=== PATIENT | female | born 1955 | race Caucasian/White ===

== ENCOUNTER 2017-10-01 10:59 | Emergency (ER) | payer BC ==
[2017-10-01 11:33] VITALS: BP 193/98; PULSE 99; RESP 20; TEMP 97.3
--- NOTE | 2017-10-01 11:45 | ED ---
General Adult HPI - General Chief complaint: Skin/Abscess/Foreign Body Stated complaint: BOIL ON NECK Time Seen by Provider: 10/01/17 11:34 Source: patient, RN notes reviewed Mode of arrival: ambulatory Limitations: no limitations - History of Present Illness Initial comments: 62-year-old female presenting to the emergency room today with chief complaint of an abscess to the back of her neck. She states that started 2 days ago. She states that her son did last area was able to some drainage out of it. She states that still was not improving seems to be getting larger. She states there is some tenderness to the area. She states it is still draining. She denies any other complaints. Patient denies any recent fever, chills, shortness of breath, chest pain, back pain, abdominal pain, nausea or vomiting, numbness or tingling, dysuria or hematuria, constipation or diarrhea, headaches or visual changes, or any other complaints. - Related Data Home Medications Medication Instructions Recorded Confirmed Gabapentin [Neurontin] 800 mg PO QID 04/14/15 04/14/15 Insulin Detemir [Levemir] 40 units SQ BID 04/14/15 04/14/15 Insulin Glulisine [Apidra] 4 units SQ TID 04/14/15 04/14/15 Previous Rx's Medication Instructions Recorded Sulfamethox-Tmp 800-160Mg [Bactrim 2 each PO Q12HR #56 tab 04/14/15 DS 800-160 mg] Sulfamethox-Tmp 800-160Mg [Bactrim 1 tab PO Q12HR #28 tab 10/01/17 DS 800-160 mg] Allergies Allergy/AdvReac Type Severity Reaction Status Date / Time Kygdasx-Pgi-Bgr Reductase Allergy Unknown Verified 10/01/17 11:30 Inhibitor Review of Systems ROS Statement: Those systems with pertinent positive or pertinent negative responses have been documented in the HPI. ROS Other: All systems not noted in ROS Statement are negative. Past Medical History Past Medical History: Diabetes Mellitus, Hyperlipidemia, Hypertension History of Any Multi-Drug Resistant Organisms: MRSA Date of last positivie culture/infection: 04/14/2015 MDRO Source:: head Past Surgical History: Tubal Ligation Past Psychological History: No Psychological Hx Reported Smoking Status: Former smoker Past Alcohol Use History: None Reported Past Drug Use History: None Reported General Exam - General Exam Comments Initial Comments: General: The patient is awake and alert, in no distress, and does not appear acutely ill. Eye: Pupils are equal, round and reactive to light, extra-ocular movements are intact. No nystagmus. There is normal conjunctiva bilaterally. No signs of icterus. Ears, nose, mouth and throat: There are moist mucous membranes and no oral lesions. Neck: The neck is supple, there is no tenderness or JVD. Cardiovascular: There is a regular rate and rhythm. No murmur, rub or gallop is appreciated. Respiratory: Lungs are clear to auscultation, respirations are non-labored, breath sounds are equal. No wheezes, stridor, rales, or rhonchi. Musculoskeletal: Normal ROM, no tenderness. Strength 5/5. Sensation intact. Pulses equal bilaterally 2+. Neurological: A&O x 3. CN II-XII intact, There are no obvious motor or sensory deficits. Coordination appears grossly intact. Speech is normal. Skin: There is a red raised area to the upper back area is red raised firm on palpation. Skin is indurated locally. No fluctuance abscess head. Scabbed area centrally. Psychiatric: Cooperative, appropriate mood & affect, normal judgment. Limitations: no limitations Course Vital Signs 10/01/17 11:30 Temperature 97.3 F L Pulse Rate 99 Respiratory 20 Rate Blood Pressure 193/98 O2 Sat by Pulse 98 Oximetry Medical Decision Making - Medical Decision Making Was discussed with patient that at this time there is no abscess fluctuant head. The skin and abscesses indurated and firm. Patient will be started on antibiotics. She does admit that she has been getting some drainage from the area. Advised to do warm compresses at least 4 times daily. Advised follow-up the family doctor over the next 2 days to have area rechecked or return here to the emergency room if it has increased or worsen. Patient's blood pressure elevated at triage she states that she forgot to take her medication. She says she's just a few blocks from the hospital. It was offered to the patient and we can give her a dose of her hematocrit here she has declined stating that she will take it when she gets home. She is advised to also follow-up the family doctor for recheck of the blood pressure Disposition Clinical Impression: Abscess Disposition: HOME SELF-CARE Condition: Good Instructions: Abscess (ED) Additional Instructions: Please use medication as discussed. Please follow-up with family doctor in the next 2 days of symptoms have not improved. Please return to emergency room if the symptoms increase or worsen or for any other concerns. Prescriptions: Sulfamethox-Tmp 800-160Mg [Bactrim DS 800-160 mg] 1 tab PO Q12HR #28 tab Is patient prescribed a controlled substance at d/c from ED?: No Referrals: Noah Finley DO [Primary Care Provider] - 1-2 days Time of Disposition: 11:44
== END 2017-10-01 12:03 | disposition home or self-care (01) ==
LOC: EC 10:59
DX: L02.11 Cutaneous abscess of neck (principal); I10 Essential (primary) hypertension; E11.9 Type 2 diabetes mellitus without complications; Z87.891 Personal history of nicotine dependence; Z79.4 Long term (current) use of insulin; Z79.899 Other long term (current) drug therapy; Z88.8 Allergy status to other drugs, medicaments and biological substances; Z86.14 Personal history of Methicillin resistant Staphylococcus aureus infection
CPT/HCPCS: 99282

== ENCOUNTER 2017-11-03 17:53 | Emergency (ER) | payer BC ==
[2017-11-03] MEDS ORDERED: SODIUM CHLORIDE 0.9% 1,000 ML IV STA (18:17)
[2017-11-03] MEDS ORDERED: IPRATROPIUM-ALBUTEROL 3 ML NEB INHALATION STA (18:17)
--- NOTE | 2017-11-03 18:20 | ED ---
Chest Pain HPI - General Chief Complaint: Chest Pain Stated Complaint: Rib pain, ear pain Time Seen by Provider: 11/03/17 18:05 Source: patient, RN notes reviewed Mode of arrival: ambulatory Limitations: no limitations - History of Present Illness Initial Comments: This is a 62-year-old female was a former smoker who quit 13 years ago and a history of bronchitis who states she had an onset yesterday of left anterior rib pain sharp in nature 9/10 severity with associated chills he states she's been sleeping a lot slipped yesterday last night also day today. She has exertional dyspnea. No sweats no fever reported no she states her normal temperature is about 95 and it does seem to be up-to-date. No dysuria hematuria she has complains some left ear pain and pain into her neck when she agrees left chest pain seems to be worse when she takes a deep breath also. MD Complaint: chest pain, other - Related Data Home Medications Medication Instructions Recorded Confirmed Gabapentin [Neurontin] 800 mg PO QID 04/14/15 04/14/15 Insulin Detemir [Levemir] 40 units SQ BID 04/14/15 04/14/15 Insulin Glulisine [Apidra] 4 units SQ TID 04/14/15 04/14/15 Previous Rx's Medication Instructions Recorded Sulfamethox-Tmp 800-160Mg [Bactrim 2 each PO Q12HR #56 tab 04/14/15 DS 800-160 mg] Sulfamethox-Tmp 800-160Mg [Bactrim 1 tab PO Q12HR #28 tab 10/01/17 DS 800-160 mg] Albuterol Inhaler [Ventolin Hfa 2 puff INHALATION Q6HR PRN #1 11/03/17 Inhaler] inhaler Amoxicillin/Potassium Clav 1 tab PO Q12HR #20 tab 11/03/17 [Augmentin 875-125 Tablet] Ibuprofen 800 mg PO Q6HR PRN #20 tablet 11/03/17 Allergies Allergy/AdvReac Type Severity Reaction Status Date / Time Tifisdq-Txm-Tks Reductase Allergy Unknown Verified 11/03/17 18:00 Inhibitor Review of Systems ROS Statement: Those systems with pertinent positive or pertinent negative responses have been documented in the HPI. ROS Other: All systems not noted in ROS Statement are negative. EKG Findings - EKG Results: EKG: interpreted by ERMD, sinus rhythm (Sinus tachycardia rate 103. Interval 158 QRS duration 70 QT since QTC 334/437 low-voltage nonspecific T-wave configuration.) Past Medical History Past Medical History: Diabetes Mellitus, Hyperlipidemia, Hypertension History of Any Multi-Drug Resistant Organisms: MRSA Date of last positivie culture/infection: 04/14/2015 MDRO Source:: head Past Surgical History: Tubal Ligation Past Psychological History: No Psychological Hx Reported Smoking Status: Former smoker Past Alcohol Use History: None Reported Past Drug Use History: None Reported General Exam - General Exam Comments Initial Comments: This is a well-developed well-nourished awake alert oriented 3 female Limitations: no limitations General appearance: alert, in no apparent distress Head exam: Present: atraumatic, normocephalic, normal inspection Eye exam: Present: normal appearance, PERRL, EOMI. Absent: scleral icterus, conjunctival injection, periorbital swelling ENT exam: Present: mucous membranes dry Neck exam: Present: normal inspection. Absent: tenderness, meningismus, lymphadenopathy Respiratory exam: Present: decreased breath sounds. Absent: respiratory distress, wheezes, rales, rhonchi, stridor, chest wall tenderness Cardiovascular Exam: Present: normal rhythm, tachycardia, normal heart sounds. Absent: systolic murmur, diastolic murmur, rubs, gallop, clicks GI/Abdominal exam: Present: soft, normal bowel sounds. Absent: distended, tenderness, guarding, rebound, rigid Extremities exam: Present: normal inspection, full ROM, normal capillary refill. Absent: tenderness, pedal edema, joint swelling, calf tenderness Back exam: Present: normal inspection Neurological exam: Present: alert, oriented X3, CN II-XII intact Psychiatric exam: Present: normal affect, normal mood Skin exam: Present: warm, dry, intact, normal color. Absent: rash Course Vital Signs 11/03/17 11/03/17 11/03/17 17:56 18:26 18:32 Temperature 97.2 F L Pulse Rate 112 H 103 H 100 Respiratory 18 Rate Blood Pressure 166/85 O2 Sat by Pulse 98 Oximetry 11/03/17 11/03/17 11/03/17 18:51 19:47 20:53 Temperature Pulse Rate 107 H 94 91 Respiratory 20 18 18 Rate Blood Pressure 166/80 131/80 141/70 O2 Sat by Pulse 98 98 98 Oximetry - Reevaluation(s) Reevaluation #1: 11/03/17 19:18 Patient still has sharp left-sided chest pain her breathing has not really improved after the DuoNeb treatment she has have evidence of elevated d-dimer she will get a CAT scan of her chest. Chest Pain MDM - MDM I did review the imaging studies and report no acute findings. Patient did get marked improvement after Toradol and she states she did get improvement after the IV magnesium and updraft. She will be discharged the presentation is consistent with pleurisy. 3 place on appropriate medications also an inhaler. Disposition Clinical Impression: Atypical chest pain, Pleurisy, Bronchospasm, acute, Hypomagnesemia Disposition: HOME SELF-CARE Condition: Good Instructions: Chest Pain (ED), Pleurisy (ED), Bronchospasm (ED) Prescriptions: Albuterol Inhaler [Ventolin Hfa Inhaler] 2 puff INHALATION Q6HR PRN #1 inhaler PRN Reason: Dyspnea Amoxicillin/Potassium Clav [Augmentin 875-125 Tablet] 1 tab PO Q12HR #20 tab Ibuprofen 800 mg PO Q6HR PRN #20 tablet PRN Reason: Pain Is patient prescribed a controlled substance at d/c from ED?: No Referrals: Noah Finley DO [Primary Care Provider] - 1-2 days
[2017-11-03 18:28] LABS: Basophils % (A) 0 %; Eosinophils # (A) 0.2 k/uL (0-0.7); Eosinophils % (A) 2 %; HCT 39.7 % (34.0-46.0); HGB 12.9 gm/dL (11.4-16.0); Lymphocytes # (A) 1.8 k/uL (1.0-4.8); Lymphocytes % (A) 15 %; MCH 27.2 pg (25.0-35.0); MCHC 32.5 g/dL (31.0-37.0); MCV 83.9 fL (80.0-100.0); Mean Platelet Volume 7.8; Monocytes # (A) 0.5 k/uL (0-1.0); Monocytes % (A) 4 %; Neutrophils # (A) 9.2 k/uL (1.3-7.7); Neutrophils % (A) 78 %; Platelet Count 293 k/uL (150-450); RBC 4.74 m/uL (3.80-5.40); RDW 14.7 % (11.5-15.5); WBC 11.8 k/uL (3.8-10.6)
[2017-11-03 18:38] LABS: Creatine Kinase 65 U/L (30-135)
[2017-11-03 18:39] LABS: ALT 27 U/L (9-52); AST 29 U/L (14-36); Albumin 4.1 g/dL (3.5-5.0); Alkaline Phosphatase 93 U/L (38-126); Amylase 62 U/L (30-110); Anion Gap 13 mmol/L; Blood Urea Nitrogen 21 mg/dL (7-17); Calcium 9.7 mg/dL (8.4-10.2); Carbon Dioxide 24 mmol/L (22-30); Chloride 100 mmol/L (98-107); Glucose 256 mg/dL (74-99); Lipase 239 U/L (23-300); Magnesium 1.4 mg/dL (1.6-2.3); Potassium 5.1 mmol/L (3.5-5.1); Sodium 137 mmol/L (137-145); Total Bilirubin 0.9 mg/dL (0.2-1.3); Total Protein 7.9 g/dL (6.3-8.2)
[2017-11-03 18:45] LABS: Partial Thromboplastin Time 22.4 sec (22.0-30.0); Prothrombin Time 9.7 sec (9.0-12.0)
[2017-11-03 18:46] LABS: D-Dimer 0.78 mg/L FEU (<0.60)
[2017-11-03 18:50] LABS: Troponin I <0.012 ng/mL (0.000-0.034)
[2017-11-03] MEDS ORDERED: KETOROLAC 30 MG/ML 1 ML VIAL IVP STA (19:17)
[2017-11-03] MEDS ORDERED: MAGNESIUM SULFATE-D5W PMX 1 GM in DEXTROSE/WATER 1 100ML.BAG IVPB ONE (19:17)
--- NOTE | 2017-11-03 19:32 | XR ---
EXAMINATION: XR chest 2V DATE AND TIME: 11/03/2017 6:49 PM ORDERING PROVIDER: Jeffrey Kenney MD CLINICAL INDICATION: Chest Pain TECHNIQUE: PA and lateral COMPARISON: None. DESCRIPTION: The overlying soft tissues are prominent. There is satisfactory, the lungs appear to be clear. The pleural spaces are negative. The cardiac silhouette is moderately enlarged. The mediastinal and pleural silhouettes are unremarkable. The skeletal structures are intact without focal findings. IMPRESSION: NO ACUTE RADIOGRAPHIC PROCESS.
[2017-11-03 19:47] VITALS: RESP 18
--- NOTE | 2017-11-03 20:10 | CT ---
EXAMINATION TYPE: CT angio chest with contrast and 3-D reconstructions DATE OF EXAM: 11/03/2017 7:51 PM COMPARISON: NONE HISTORY: Patient complains of left side rib pain. CT DLP: 423.4 mGycm Automated exposure control for dose reduction was used. CONTRAST: CTA scan of the thorax is performed with IV Contrast, patient injected with 100 mL of Isovue 370, pul monary embolism protocol. . FINDINGS: The airways are unremarkable. The lungs are grossly clear, there is no concerning parenchymal mass or nodule identified. There is no pleural effusion or pneumothorax seen. The tracheobronchial tree is patent. There is satisfactory enhancement of the pulmonary artery and its branches, there is no CT evidence f or pulmonary embolism. There are no greater than 1 cm hilar or mediastinal lymph nodes. Left and rig ht coronary calcifications are noted. There is mild cardiomegaly. No pericardial effusion. Skeletal structures: No focal findings. IMPRESSION: 1. NO ACUTE PROCESS. 2. SPECIFICALLY, NEGATIVE FOR PULMONARY EMBOLISM. 3. CORONARY CALCIFICATIONS NOTED.
[2017-11-03] MEDS ORDERED: AMOXIC-POT CLAV 875MG STARTER 2 EACH TABLET PO STA (21:26)
[2017-11-03 21:38] VITALS: BP 127/74; PULSE 78; TEMP 98.2
== END 2017-11-03 21:38 | disposition home or self-care (01) ==
LOC: EC 17:53
DX: R09.1 Pleurisy (principal); J98.01 Acute bronchospasm; E83.42 Hypomagnesemia; E11.9 Type 2 diabetes mellitus without complications; Z86.14 Personal history of Methicillin resistant Staphylococcus aureus infection; Z87.891 Personal history of nicotine dependence; Z79.4 Long term (current) use of insulin; Z79.899 Other long term (current) drug therapy; Z88.8 Allergy status to other drugs, medicaments and biological substances
CPT/HCPCS: 36415; 94640; 93005; 85379; 83880; 80053; 82150; 82550; 82553; 83690; 83735; 84484; 85025; 85610; 85730; 71046; 71275; 99285; 96365; 96366; 96375; 96361 ×2; J1885; J3475; Q9967

== ENCOUNTER 2018-03-30 20:39 | Inpatient (IN) | payer BC ==
[2018-03-30] MEDS ORDERED: SODIUM CHLORIDE 0.9% 1,000 ML IV STA (21:21)
[2018-03-30] MEDS ORDERED: ACETAMINOPHEN TAB 325 MG TAB PO STA (21:21)
--- NOTE | 2018-03-30 21:25 | ED ---
SOB HPI - General Chief Complaint: Shortness of Breath Stated Complaint: MISSAEL Time Seen by Provider: 03/30/18 21:07 Source: patient, family Mode of arrival: wheelchair Limitations: no limitations - History of Present Illness Initial Comments: Patient is a 62-year-old female presenting for shortness of breath and cough. She states that for the last couple days, she has been having these symptoms and she is also been having nausea vomiting diarrhea and a low-grade fever at home of 99. She also admits to chills because she gets on her hot blanket in his stool cold. She denies any abdominal pain, dysuria, history of lung disease and does not use any nausea home nor does she have a recent history of smoking cigarettes although she did smoke about 13 years ago. She denies any chest pain. - Related Data Home Medications Medication Instructions Recorded Confirmed Gabapentin [Neurontin] 800 mg PO QID 04/14/15 03/30/18 Insulin Detemir [Levemir] 40 units SQ BID 04/14/15 03/30/18 Insulin Glulisine [Apidra] 4 units SQ TID 04/14/15 03/30/18 Previous Rx's Medication Instructions Recorded Albuterol Inhaler [Ventolin Hfa 2 puff INHALATION Q6HR PRN #1 11/03/17 Inhaler] inhaler Ibuprofen 800 mg PO Q6HR PRN #20 tablet 11/03/17 Cyclobenzaprine [Flexeril] 10 mg PO TID #15 tab 02/11/18 Ibuprofen 800 mg PO TID #20 tablet 02/11/18 Allergies Allergy/AdvReac Type Severity Reaction Status Date / Time Ehqehee-Dvx-Szp Reductase Allergy Unknown Verified 03/30/18 20:54 Inhibitor Review of Systems ROS Statement: Those systems with pertinent positive or pertinent negative responses have been documented in the HPI. Constitutional: Positive for chills, fatigue and fever. HENT: Negative for congestion. Respiratory: Negative for chest tightness, positive for shortness of breath and wheezing. Positive for cough Cardiovascular: Negative for chest pain and palpitations. Gastrointestinal: Negative for abdominal pain. Negative for abdominal distention , positive for diarrhea, nausea and vomiting. Genitourinary: Negative for dysuria. Musculoskeletal: Negative for back pain, neck pain and neck stiffness. Skin: Negative for color change. Neurological: Negative for dizziness, speech difficulty, weakness and light- headedness. Psychiatric/Behavioral: Negative for agitation and confusion. Negative for anxiety ROS Other: All systems not noted in ROS Statement are negative. Past Medical History Past Medical History: Diabetes Mellitus, Hyperlipidemia, Hypertension History of Any Multi-Drug Resistant Organisms: MRSA Date of last positivie culture/infection: 04/14/2015 MDRO Source:: head Past Surgical History: Tubal Ligation Past Psychological History: No Psychological Hx Reported Smoking Status: Former smoker Past Alcohol Use History: None Reported Past Drug Use History: None Reported General Exam - General Exam Comments Initial Comments: Constitutional: Pt is oriented to person, place, and time. Pt appears well- developed and well-nourished. Patient is ill-appearing but hemodynamically stable HENT: Head: Normocephalic and atraumatic. Eyes: EOM are normal. Neck: Normal range of motion. Neck supple. Cardiovascular: Tachycardia present, regular rhythm, S1 normal, S2 normal and normal heart sounds. Exam reveals no gallop and no friction rub. No murmur heard. Pulmonary/Chest: Tachypnea present and breath sounds normal. no bradypnea. No respiratory distress. No wheezes or rales noted. Abdominal: Soft. Bowel sounds are normal. Pt exhibits no shifting dullness, no distension, no pulsatile liver, no fluid wave, no abdominal bruit and no ascites. There is no tenderness. There is no rigidity, no rebound, no guarding, no tenderness at McBurney's point and negative Roa's sign. Musculoskeletal: Normal range of motion. Neurological: Pt is alert and oriented to person, place, and time. No cranial nerve deficit. Skin: Skin is warm and dry. No rash noted. Pt is not diaphoretic. No erythema. No pallor. Psychiatric: Pt has a normal mood and affect. Pt behavior is normal. Thought content normal. Limitations: no limitations Course Vital Signs 03/30/18 03/30/18 03/30/18 20:51 21:00 21:10 Temperature 99.8 F H Pulse Rate 127 H Respiratory 20 Rate Blood Pressure 159/81 156/89 O2 Sat by Pulse 97 95 98 Oximetry 03/30/18 03/30/18 03/30/18 21:20 21:30 21:40 Temperature Pulse Rate 124 H 120 H Respiratory Rate Blood Pressure 156/89 156/89 156/89 O2 Sat by Pulse 99 99 99 Oximetry 03/30/18 03/30/18 03/30/18 21:50 21:52 22:00 Temperature Pulse Rate 121 H 120 H Respiratory 22 Rate Blood Pressure 174/97 174/97 O2 Sat by Pulse 99 99 Oximetry 03/30/18 03/30/18 03/30/18 22:04 22:10 22:20 Temperature Pulse Rate 118 H 118 H Respiratory Rate Blood Pressure 152/80 152/80 O2 Sat by Pulse 100 Oximetry 03/30/18 03/30/18 03/30/18 22:30 22:40 22:50 Temperature Pulse Rate 125 H 128 H 124 H Respiratory Rate Blood Pressure 152/80 148/81 148/81 O2 Sat by Pulse 97 97 96 Oximetry Medical Decision Making - Lab Data Result diagrams: 03/30/18 21:50 03/30/18 21:50 Lab Results 03/30/18 03/30/18 03/30/18 Range/Units 21:50 21:50 21:50 WBC 13.3 H (3.8-10.6) k/uL RBC 4.35 (3.80-5.40) m/uL Hgb 11.5 (11.4-16.0) gm/dL Hct 36.1 (34.0-46.0) % MCV 82.8 (80.0-100.0) fL MCH 26.5 (25.0-35.0) pg MCHC 32.0 (31.0-37.0) g/dL RDW 14.7 (11.5-15.5) % Plt Count 533 H D (150-450) k/uL Neutrophils % 85 % Lymphocytes % 9 % Monocytes % 4 % Eosinophils % 1 % Basophils % 0 % Neutrophils # 11.3 H (1.3-7.7) k/uL Lymphocytes # 1.2 (1.0-4.8) k/uL Monocytes # 0.5 (0-1.0) k/uL Eosinophils # 0.1 (0-0.7) k/uL Basophils # 0.0 (0-0.2) k/uL Hypochromasia Slight PT (9.0-12.0) sec INR (<1.2) APTT (22.0-30.0) sec Sodium 133 L (137-145) mmol/L Potassium 5.3 H (3.5-5.1) mmol/L Chloride 97 L (98-107) mmol/L Carbon Dioxide 26 (22-30) mmol/L Anion Gap 10 mmol/L BUN 22 H (7-17) mg/dL Creatinine 0.79 (0.52-1.04) mg/dL Est GFR (CKD-EPI)AfAm >90 (>60 ml/min/1.73 sqM) Est GFR (CKD-EPI)NonAf 81 (>60 ml/min/1.73 sqM) Glucose 423 H (74-99) mg/dL Plasma Lactic Acid John (0.7-2.0) mmol/L Calcium 9.7 (8.4-10.2) mg/dL Total Bilirubin 0.6 (0.2-1.3) mg/dL AST 21 (14-36) U/L ALT 19 (9-52) U/L Alkaline Phosphatase 120 (38-126) U/L Troponin I (0.000-0.034) ng/mL Total Protein 7.4 (6.3-8.2) g/dL Albumin 3.3 L (3.5-5.0) g/dL Influenza Type A RNA Not Detected (Not Detectd) Influenza Type B (PCR) Not Detected (Not Detectd) 03/30/18 03/30/18 03/30/18 Range/Units 21:50 21:50 21:50 WBC (3.8-10.6) k/uL RBC (3.80-5.40) m/uL Hgb (11.4-16.0) gm/dL Hct (34.0-46.0) % MCV (80.0-100.0) fL MCH (25.0-35.0) pg MCHC (31.0-37.0) g/dL RDW (11.5-15.5) % Plt Count (150-450) k/uL Neutrophils % % Lymphocytes % % Monocytes % % Eosinophils % % Basophils % % Neutrophils # (1.3-7.7) k/uL Lymphocytes # (1.0-4.8) k/uL Monocytes # (0-1.0) k/uL Eosinophils # (0-0.7) k/uL Basophils # (0-0.2) k/uL Hypochromasia PT 10.5 (9.0-12.0) sec INR 1.1 (<1.2) APTT 22.2 (22.0-30.0) sec Sodium (137-145) mmol/L Potassium (3.5-5.1) mmol/L Chloride (98-107) mmol/L Carbon Dioxide (22-30) mmol/L Anion Gap mmol/L BUN (7-17) mg/dL Creatinine (0.52-1.04) mg/dL Est GFR (CKD-EPI)AfAm (>60 ml/min/1.73 sqM) Est GFR (CKD-EPI)NonAf (>60 ml/min/1.73 sqM) Glucose (74-99) mg/dL Plasma Lactic Acid John 1.6 (0.7-2.0) mmol/L Calcium (8.4-10.2) mg/dL Total Bilirubin (0.2-1.3) mg/dL AST (14-36) U/L ALT (9-52) U/L Alkaline Phosphatase (38-126) U/L Troponin I <0.012 (0.000-0.034) ng/mL Total Protein (6.3-8.2) g/dL Albumin (3.5-5.0) g/dL Influenza Type A RNA (Not Detectd) Influenza Type B (PCR) (Not Detectd) - EKG Data EKG Comments: EKG shows sinus tachycardia with a rate of 122, WA interval 158, QRS duration 70 , QTC 450. There are no significant ST depressions or elevations. Disposition Clinical Impression: Sepsis, Pneumonia Disposition: ADMITTED IP TO THIS [facility] Condition: Good Referrals: Noah Finley DO [Primary Care Provider] - 1-2 days Decision to Admit Reason: Admit from EC Decision Date: 03/30/18 Decision Time: 23:48
[2018-03-30] MEDS ORDERED: IPRATROPIUM-ALBUTEROL 3 ML NEB INHALATION STA (21:40)
[2018-03-30] MEDS: SODIUM CHLORIDE 0.9% 500 ML 500 ML IV SCH ×2 (21:50→22:39)
[2018-03-30 22:25] LABS: INR 1.1 (<1.2); Partial Thromboplastin Time 22.2 sec (22.0-30.0); Prothrombin Time 10.5 sec (9.0-12.0)
[2018-03-30 22:26] LABS: Basophils % (A) 0 %; Eosinophils # (A) 0.1 k/uL (0-0.7); Eosinophils % (A) 1 %; HCT 36.1 % (34.0-46.0); HGB 11.5 gm/dL (11.4-16.0); Hypochromasia Slight; Lymphocytes # (A) 1.2 k/uL (1.0-4.8); Lymphocytes % (A) 9 %; MCH 26.5 pg (25.0-35.0); MCV 82.8 fL (80.0-100.0); Mean Platelet Volume 7.2; Monocytes # (A) 0.5 k/uL (0-1.0); Monocytes % (A) 4 %; Neutrophils # (A) 11.3 k/uL (1.3-7.7); Neutrophils % (A) 85 %; RBC 4.35 m/uL (3.80-5.40); RDW 14.7 % (11.5-15.5); WBC 13.3 k/uL (3.8-10.6)
[2018-03-30 22:27] LABS: Platelet Count 533 k/uL (150-450)
[2018-03-30 22:35] LABS: ALT 19 U/L (9-52); AST 21 U/L (14-36); Albumin 3.3 g/dL (3.5-5.0); Alkaline Phosphatase 120 U/L (38-126); Anion Gap 10 mmol/L; Blood Urea Nitrogen 22 mg/dL (7-17); Calcium 9.7 mg/dL (8.4-10.2); Carbon Dioxide 26 mmol/L (22-30); Chloride 97 mmol/L (98-107); Glucose 423 mg/dL (74-99); Potassium 5.3 mmol/L (3.5-5.1); Sodium 133 mmol/L (137-145); Total Bilirubin 0.6 mg/dL (0.2-1.3); Total Protein 7.4 g/dL (6.3-8.2)
--- NOTE | 2018-03-30 22:44 | XR ---
EXAMINATION TYPE: XR chest 2V DATE OF EXAM: 03/30/2018 COMPARISON: November 03, 2017 HISTORY: Fever short of breath TECHNIQUE: Frontal and lateral views of the chest are obtained. FINDINGS: Heart is enlarged. There is no heart failure. There is some blunting of the left costophre adalberto angle. There are chest leads. Bony thorax is intact. IMPRESSION: There is new left pleural effusion and left basilar pulmonary infiltrate compared to old exam. No heart failure.
[2018-03-30] MEDS ORDERED: AZITHROMYCIN 500 MG in SODIUM CHLORIDE 0.9% 250 ML IVPB SCH (23:00)
[2018-03-31] MEDS: KETOROLAC 30 MG/ML 1 ML VIAL IVP SCH ×5 (00:20→23:30)
[2018-03-31 00:33] LABS: Glucose,Whole Blood 400 mg/dL (75-99)
[2018-03-31] MEDS ORDERED: INSULIN ASPART 100 UNIT/ML 1 ML 10 ML VIAL SQ ONE (00:43)
[2018-03-31 00:45] LABS: Appearance,Urine Turbid (Clear); Bacteria,Urine Many /hpf; Bilirubin,Urine Negative (Negative); Blood,Urine Small (Negative); Budding Yeast,Urine Few /hpf; Color,Urine Yellow; Glucose,Urine (UA) 4+ (Negative); Ketones,Urine Negative (Negative); Leukocyte Esterase,Urine Large (Negative); Mucus,Urine Rare /hpf; Nitrite,Urine Negative (Negative); PH, Urine 5.5 (5.0-8.0); Protein,Urine 2+ (Negative); RBC,Urine 41 /hpf (0-5); Renal Epithelial Cells,Urine 150 /hpf (0); Squamous Epithelial Cell,Urine 25 /hpf (0-4); Urobilinogen,Urine <2.0 mg/dL (<2.0); WBC,Urine 108 /hpf (0-5)
[2018-03-31 01:37] VITALS: BMI 37.5
[2018-03-31 04:20] LABS: Glucose,Whole Blood 109 mg/dL (75-99)
[2018-03-31 07:19] LABS: Glucose,Whole Blood 105 mg/dL (75-99)
[2018-03-31] MEDS: INSULIN ASPART 100 UNIT/ML 1 ML 10 ML VIAL SQ SCH ×5 (09:17→17:52)
[2018-03-31] MEDS: GABAPENTIN 400 MG CAP PO SCH ×4 (09:52→22:31)
[2018-03-31 11:50] LABS: Glucose,Whole Blood 158 mg/dL (75-99)
[2018-03-31] MEDS ORDERED: INSULIN DETEMIR 100 UNIT/ML 10 ML VIAL SQ SCH (12:15)
[2018-03-31] MEDS ORDERED: CYCLOBENZAPRINE 10 MG TAB PO SCH (12:30)
[2018-03-31] MEDS ORDERED: CALCIUM CARBONATE 500 MG CHEWABLE PO PRN (16:39)
[2018-03-31] MEDS ORDERED: LACTULOSE 20 GM/30 ML CUP PO PRN (16:39)
[2018-03-31] MEDS ORDERED: MAGNESIUM HYDROXIDE 2,400 MG/10 ML CUP PO PRN (16:39)
[2018-03-31] MEDS ORDERED: ONDANSETRON 4 MG/2 ML VIAL IVP PRN (16:39)
[2018-03-31] MEDS ORDERED: MELATONIN 3 MG TABLET PO PRN (16:39)
[2018-03-31] MEDS ORDERED: ALPRAZolam 0.25 MG TAB PO PRN (16:39)
[2018-03-31 17:23] LABS: Glucose,Whole Blood 151 mg/dL (75-99)
--- NOTE | 2018-03-31 17:24 | HP ---
HISTORY AND PHYSICAL DATE OF ADMISSION: 03/30/2018 DATE OF SERVICE: 03/31/2018. PRESENTING COMPLAINT: Cough, short of breath. HISTORY OF PRESENTING COMPLAINT: This is a 62 -year-old patient of Dr. Finley whose chronic stable medical conditions include diabetes, hypertension, hyperlipidemia, peripheral neuropathy. The patient is an ex-smoker. For close to 10 days, patient has been having increasing short of breath, cough and deep down not able to really expectorate much. The patient did develop fever, chills, decreased appetite, tired, run down. Decided to come in for the same. The patient presented to the ER last night. The patient is treated for pneumonia. REVIEW OF SYSTEMS: CONSTITUTIONAL: Fever, chills. HEENT: None. RESPIRATORY: As above. CARDIOVASCULAR none. GENITOURINARY: None. GENITOURINARY: None. MUSCULOSKELETAL: None. DERMATOLOGICAL, HEMATOLOGIC, LYMPHATIC: None. PSYCHIATRY: None. NEUROLOGICAL: None. PAST MEDICAL HISTORY: Diabetes, hypertension, hyperlipidemia, peripheral neuropathy. PAST SURGICAL HISTORY: Tubal ligation. SOCIAL HISTORY: Patient smoked for about 30 years, pack a day, stopped 14 years ago. The patient lives with her daughter. Retired. FAMILY HISTORY: Dementia and diabetes. HOME MEDICATIONS: 1. . 2. Metformin 50/100 one tablet p.o. b.i.d. 3. Tarceva per protocol. 4. Hydrochlorothiazide 12.5 p.o. daily. 5. Neurontin 800 mg p.o. q.i.d. 6. Welchol 625 p.o. daily. 7. Ventolin HFA 2 puffs q.i.d. p.r.n. ALLERGIES: TO STATINS. PHYSICAL EXAMINATION: VITAL SIGNS: Vital signs on presentation: Temperature 100.7, pulse 124, respiratory rate, blood pressure 156/89, pulse ox 97% on room air. GENERAL APPEARANCE: Well built, BMI 37.6. Lying in bed, tired-appearing. EYES: Pupils equal. Conjunctivae normal. HEENT: External appearance of nose and ears normal. Oral cavity normal. NECK: JVD not raised. Mass not palpable. RESPIRATORY: Effort increased. LUNGS: Left basal crackles. Some wheezing. CARDIOVASCULAR: 1st and 2nd sounds normal. No edema. ABDOMEN: Soft, nontender. Liver and spleen not palpable. LYMPHATICS: No lymph nodes palpable in the neck and axilla. PSYCHIATRY: Alert and oriented x3. Mood and affect normal. NEUROLOGICAL: Pupils equal. Cranial nerves grossly intact. Power and sensation grossly intact. INVESTIGATIONS: White count 13.3, hemoglobin 11.5, potassium 5.3, BUN 22, creatinine 0.79. UA positive for leukoesterase, squamous epithelial bacteria. Influenza A and B negative. EKG tracing personally reviewed by me shows sinus tachycardia and some nonspecific findings. Chest x-ray film, personally reviewed by me shows slight cardiomegaly. Left basal infiltrate. ASSESSMENT: 1. Left lower lobe pneumonia suspect gram-negative organism causing sepsis, present on admission. 2. Acute chronic obstructive pulmonary disease exacerbation in an ex-smoker. 3. Diabetes mellitus type 2 on oral hypoglycemics. 4. Essential hypertension. 5. Hyperlipidemia. 6. Peripheral neuropathy from diabetes. 7. Obesity; BMI 37.6. PLAN: Patient is started on IV ceftriaxone and azithromycin. We will also add DuoNeb. The patient also put on IV fluids. Care was discussed with the patient. Questions were answered. We will also give Lovenox for DVT prophylaxis. Copy to Dr. Finley. MMODL / IJN: [id number] /
[2018-03-31] MEDS ORDERED: PIOGLITAZONE 15 MG TAB PO SCH (17:30)
[2018-03-31] MEDS ORDERED: COLESEVELAM 625 MG TAB PO SCH (17:30)
[2018-03-31] MEDS: metFORMIN 500 MG TAB PO SCH (17:47)
[2018-03-31] MEDS: ENOXAPARIN 40 MG/0.4 ML SYRINGE SQ SCH (17:47)
[2018-03-31 20:00] LABS: Glucose,Whole Blood 132 mg/dL (75-99)
[2018-03-31] MEDS: IPRATROPIUM-ALBUTEROL 3 ML NEB INHALATION SCH (20:20)
[2018-03-31] MEDS: AZITHROMYCIN 500 MG TAB PO SCH (20:26)
[2018-03-31] MEDS: INSULIN DETEMIR 100 UNIT/ML 10 ML VIAL SQ SCH (20:26)
[2018-03-31] MEDS: LACTATED RINGERS 1,000 ML IV SCH (20:26)
[2018-03-31] MEDS: CYCLOBENZAPRINE 10 MG TAB PO SCH (22:31)
[2018-04-01] MEDS: LACTATED RINGERS 1,000 ML IV SCH ×2 (05:26→21:00)
[2018-04-01] MEDS: KETOROLAC 30 MG/ML 1 ML VIAL IVP SCH ×3 (05:27→17:54)
[2018-04-01 07:01] LABS: Glucose,Whole Blood 68 mg/dL (75-99)
[2018-04-01] MEDS: INSULIN ASPART 100 UNIT/ML 1 ML 10 ML VIAL SQ SCH ×6 (07:05→17:49)
[2018-04-01 07:16] LABS: Glucose,Whole Blood 82 mg/dL (75-99)
[2018-04-01 08:15] LABS: Glucose,Whole Blood 123 mg/dL (75-99)
[2018-04-01] MEDS: GABAPENTIN 400 MG CAP PO SCH ×4 (08:15→22:12)
[2018-04-01] MEDS: CYCLOBENZAPRINE 10 MG TAB PO SCH ×2 (08:16→15:46)
[2018-04-01] MEDS: COLESEVELAM 625 MG TAB PO SCH (08:16)
[2018-04-01] MEDS: metFORMIN 500 MG TAB PO SCH ×2 (08:16→17:54)
[2018-04-01] MEDS: PIOGLITAZONE 15 MG TAB PO SCH ×2 (08:16→17:54)
[2018-04-01] MEDS: INSULIN DETEMIR 100 UNIT/ML 10 ML VIAL SQ SCH ×2 (08:17→20:47)
[2018-04-01] MEDS: ENOXAPARIN 40 MG/0.4 ML SYRINGE SQ SCH (08:17)
[2018-04-01] MEDS: IPRATROPIUM-ALBUTEROL 3 ML NEB INHALATION SCH ×4 (08:57→20:24)
[2018-04-01] MEDS ORDERED: HYDROCHLOROTHIAZIDE 12.5 MG CAP PO SCH (09:00)
[2018-04-01 11:04] LABS: Glucose,Whole Blood 179 mg/dL (75-99)
[2018-04-01 17:50] LABS: Glucose,Whole Blood 119 mg/dL (75-99)
--- NOTE | 2018-04-01 19:27 | PN ---
PROGRESS NOTE DATE OF SERVICE: 04/01/2018 PRESENTING COMPLAINT: Cough, short of breath. INTERVAL HISTORY: This patient was admitted with pneumonia and acute COPD exacerbation. She does feel tired and rundown today. Some cough, but more short of breath, wheezing. Decreased appetite. Lying in bed. No fever. No chills. Getting breathing treatments, steroids. REVIEW OF SYSTEMS: Done for constitutional, cardiovascular, GI, pulmonary; relevant findings as above. CURRENT MEDICATIONS: Reviewed. They include IV ceftriaxone, DuoNeb. PHYSICAL EXAMINATION: Temperature 97.4, pulse 112, respiration 20, blood pressure 150/81, pulse ox 95% on room air. GENERAL APPEARANCE: Lying in bed, tired-appearing EYES: Pupils equal. Conjunctivae normal. HEENT: External appearance of nose and ears normal. Oral cavity normal. NECK: JVD not raised. Mass not palpable. RESPIRATORY: Effort increased. LUNGS: Decreased breath sounds. Prolonged expiration and wheezing. CARDIOVASCULAR: First and second sounds normal. No edema. ABDOMEN: Soft, nontender. Liver and spleen not palpable. PSYCHIATRY: Alert and oriented x3. Mood and affect tired-appearing. INVESTIGATIONS: Accu-Cheks 82, 123, 179. Blood cultures are negative. ASSESSMENT: 1. Left lower lobe pneumonia; suspect gram-negative organism causing sepsis, present on admission, slow to respond. 2. Acute chronic obstructive pulmonary disease exacerbation with some worsening. 3. Diabetes mellitus, type 2, on oral hypoglycemic. 4. Essential hypertension. 5. Hyperlipidemia. 6. Peripheral neuropathy from diabetes. 7. Obesity; body mass index 37.6. PLAN: Patient's COPD is getting worse. Will add IV steroids, increase the frequency of breathing treatments to every 4 hours. Patient encouraged to be sitting up on the bed. MMODL / IJN: [id number] /
[2018-04-01 20:18] LABS: Glucose,Whole Blood 167 mg/dL (75-99)
[2018-04-01] MEDS: BUDESONIDE 1 MG/2 ML NEBU INHALATION SCH (20:24)
[2018-04-01] MEDS: methylPREDNISolone SOD SUCCI 40 MG/ML 1 ML VIAL IV SCH (20:56)
[2018-04-01] MEDS: AZITHROMYCIN 500 MG TAB PO SCH (22:13)
[2018-04-02] MEDS: KETOROLAC 30 MG/ML 1 ML VIAL IVP SCH ×5 (00:41→23:42)
[2018-04-02] MEDS: IPRATROPIUM-ALBUTEROL 3 ML NEB INHALATION SCH ×5 (01:31→20:34)
[2018-04-02] MEDS: methylPREDNISolone SOD SUCCI 40 MG/ML 1 ML VIAL IV SCH ×3 (03:03→17:56)
[2018-04-02] MEDS: LACTATED RINGERS 1,000 ML IV SCH (05:51)
[2018-04-02 07:01] LABS: Glucose,Whole Blood 386 mg/dL (75-99)
[2018-04-02 09:01] LABS: Basophils % (A) 0 %; Eosinophils % (A) 0 %; HCT 33.2 % (34.0-46.0); HGB 10.2 gm/dL (11.4-16.0); Hypochromasia Marked; Lymphocytes # (A) 0.5 k/uL (1.0-4.8); Lymphocytes % (A) 6 %; MCH 26.3 pg (25.0-35.0); MCHC 30.7 g/dL (31.0-37.0); MCV 85.5 fL (80.0-100.0); Mean Platelet Volume 7.2; Monocytes # (A) 0.1 k/uL (0-1.0); Monocytes % (A) 1 %; Neutrophils # (A) 8.5 k/uL (1.3-7.7); Neutrophils % (A) 92 %; Platelet Count 531 k/uL (150-450); RBC 3.89 m/uL (3.80-5.40); RDW 14.8 % (11.5-15.5); WBC 9.2 k/uL (3.8-10.6)
[2018-04-02 09:10] LABS: Anion Gap 13 mmol/L; Blood Urea Nitrogen 20 mg/dL (7-17); Calcium 9.4 mg/dL (8.4-10.2); Carbon Dioxide 17 mmol/L (22-30); Chloride 106 mmol/L (98-107); Glucose 359 mg/dL (74-99); Sodium 136 mmol/L (137-145)
[2018-04-02 09:14] LABS: Potassium 6.2 mmol/L (3.5-5.1)
[2018-04-02] MEDS ORDERED: SODIUM BICARB 8.4% 50 ML SYR (1 MEQ/ML) IV ONE (09:50)
[2018-04-02] MEDS ORDERED: SODIUM POLYSTYRENE SULFONATE 15 GM/60 ML BOTTLE PO STA (09:57)
[2018-04-02] MEDS: BUDESONIDE 1 MG/2 ML NEBU INHALATION SCH ×2 (09:57→20:34)
[2018-04-02] MEDS: ENOXAPARIN 40 MG/0.4 ML SYRINGE SQ SCH (10:05)
[2018-04-02] MEDS: GABAPENTIN 400 MG CAP PO SCH ×4 (10:05→20:34)
[2018-04-02] MEDS: metFORMIN 500 MG TAB PO SCH ×2 (10:06→17:55)
[2018-04-02] MEDS: PIOGLITAZONE 15 MG TAB PO SCH ×2 (10:06→17:55)
[2018-04-02] MEDS: COLESEVELAM 625 MG TAB PO SCH (10:06)
[2018-04-02] MEDS: INSULIN DETEMIR 100 UNIT/ML 10 ML VIAL SQ SCH ×2 (10:07→20:18)
[2018-04-02] MEDS: INSULIN ASPART 100 UNIT/ML 1 ML 10 ML VIAL SQ SCH ×6 (10:09→18:25)
[2018-04-02] MEDS ORDERED: CALCIUM GLUCONATE 1,000 MG in SODIUM CHLORIDE 0.9% 100 ML IVPB ONE (10:15)
[2018-04-02 12:27] LABS: Glucose,Whole Blood 423 mg/dL (75-99)
[2018-04-02 18:14] LABS: Glucose,Whole Blood 461 mg/dL (75-99)
[2018-04-02 20:19] LABS: Glucose,Whole Blood 432 mg/dL (75-99)
--- NOTE | 2018-04-02 20:19 | PN ---
PROGRESS NOTE DATE OF SERVICE: 04/02/18 PRESENTING COMPLAINT: Cough, short of breath. INTERVAL HISTORY: Patient admitted with pneumonia and COPD exacerbation. Feeling much better today. Sputum production is minimum. Wheezing is improved. Breathing is better. Tolerating a diet. Has been out of bed. No fever or chills. REVIEW OF SYSTEMS: Done for constitutional, cardiovascular, GI, pulmonary; relevant findings as above. CURRENT MEDICATIONS: Reviewed that include IV ceftriaxone, Zithromax, DuoNeb, IV Solu-Medrol. PHYSICAL EXAMINATION: Temperature 97.9, pulse 110, respiration 16, blood pressure 160/76, pulse 94 percent on room air. GENERAL APPEARANCE: Sitting up, looking much better. EYES: Pupils equal. Conjunctivae normal. HEENT: External appearance of nose and ears normal. Oral cavity normal. NECK: JVD not raised. Mass not palpable. RESPIRATORY: Effort normal. Lungs, decreased breath sounds improved air entry. CARDIOVASCULAR: First and second sounds normal. No edema. ABDOMEN: Soft, nontender. Liver and spleen not palpable. PSYCHIATRY: Alert and oriented x3. Mood and affect normal. INVESTIGATIONS: White count 9.2, hemoglobin 10.2, potassium 6.2, BUN 20, creatinine 0.59. Accu-Cheks noted 359, 423. ASSESSMENT: 1. Left lobe pneumonia suspect gram-negative organism causing sepsis, present on admission with good clinical response. 2. Acute chronic obstructive pulmonary disease exacerbation, responding. 3. Diabetes mellitus type 2 uncontrolled due to secondary to steroids. 4. Essential hypertension. 5. Hyperlipidemia. 6. Peripheral neuropathy from diabetes. 7. Obesity; BMI 37.6. 8. Hyperkalemia. PLAN: The patient was this morning was ordered an amp of sodium bicarb, calcium gluconate, insulin. Also given Kayexalate. We will cut back the DuoNeb to every 6 hours. Switch the patient to p.o. prednisone. Since Lovenox can also give hyperkalemia will DC the Lovenox as patient is already ambulatory. Solu-Medrol will be switched to p.o. prednisone. Overall patient doing better. MMODL / IJN: [id number] /
[2018-04-02] MEDS ORDERED: INSULIN ASPART 100 UNIT/ML 1 ML 10 ML VIAL SQ ONE (20:21)
[2018-04-02] MEDS: SODIUM CHLORIDE 0.9% 1,000 ML IV SCH (20:27)
[2018-04-03] MEDS: SODIUM CHLORIDE 0.9% 1,000 ML IV SCH ×2 (05:21→15:52)
[2018-04-03] MEDS: KETOROLAC 30 MG/ML 1 ML VIAL IVP SCH ×4 (05:21→19:55)
[2018-04-03 06:59] LABS: Glucose,Whole Blood 297 mg/dL (75-99)
[2018-04-03] MEDS: IPRATROPIUM-ALBUTEROL 3 ML NEB INHALATION SCH ×4 (08:30→19:45)
[2018-04-03] MEDS: BUDESONIDE 1 MG/2 ML NEBU INHALATION SCH ×2 (08:30→19:45)
[2018-04-03] MEDS ORDERED: predniSONE 20 MG TAB PO SCH (09:00)
[2018-04-03] MEDS: INSULIN DETEMIR 100 UNIT/ML 10 ML VIAL SQ SCH ×2 (09:40→22:35)
[2018-04-03] MEDS: COLESEVELAM 625 MG TAB PO SCH (09:55)
[2018-04-03] MEDS: GABAPENTIN 400 MG CAP PO SCH ×4 (09:55→22:35)
[2018-04-03] MEDS: INSULIN ASPART 100 UNIT/ML 1 ML 10 ML VIAL SQ SCH ×6 (09:56→18:43)
[2018-04-03] MEDS: PIOGLITAZONE 15 MG TAB PO SCH ×2 (09:56→18:23)
[2018-04-03] MEDS: metFORMIN 500 MG TAB PO SCH ×2 (09:56→18:23)
[2018-04-03 10:17] LABS: Anion Gap 15 mmol/L; Blood Urea Nitrogen 35 mg/dL (7-17); Calcium 9.8 mg/dL (8.4-10.2); Carbon Dioxide 22 mmol/L (22-30); Chloride 101 mmol/L (98-107); Glucose 336 mg/dL (74-99); Potassium 5.6 mmol/L (3.5-5.1); Sodium 138 mmol/L (137-145)
[2018-04-03 12:13] LABS: Glucose,Whole Blood 385 mg/dL (75-99)
[2018-04-03] MEDS ORDERED: SODIUM POLYSTYRENE SULFONATE 15 GM/60 ML BOTTLE PO STA (13:56)
[2018-04-03 16:51] LABS: Glucose,Whole Blood 288 mg/dL (75-99)
[2018-04-03 20:17] LABS: Glucose,Whole Blood 221 mg/dL (75-99)
[2018-04-03 22:43] VITALS: BP 150/84; PULSE 104; RESP 17; TEMP 97.9
--- NOTE | 2018-04-03 23:59 | DS ---
DISCHARGE SUMMARY DATE OF ADMISSION: 03/30/2018 DATE OF DISCHARGE: 04/03/2018 FINAL DIAGNOSES: 1. Left lower lobe pneumonia. Suspect gram-negative organism causing sepsis, present on admission. 2. Acute chronic obstructive pulmonary disease exacerbation. 3. Diabetes mellitus, type 2, uncontrolled, secondary to steroids. 4. Essential hypertension. 5. Hyperlipidemia. 6. Peripheral neuropathy from diabetes. 7. Obesity; body mass index of 37.6. 8. Hyperkalemia. HOSPITAL COURSE: This patient presented with pneumonia, COPD exacerbation. Responded well to antibiotics. Patient did receive IV ceftriaxone. Doing much better today. Today patient was found to have hyperkalemia of 5.6. Did give a dose of Kayexalate today. Care was discussed in detail with the patient. Questions were answered. PHYSICAL EXAMINATION: Temperature 97.9, blood pressure 150/84, pulse ox 97% on room air. LUNGS: Improved air entry. ABDOMEN: Soft, nontender. DISCHARGE MEDICATIONS: 1. Neurontin 800 mg q.i.d. 2. Ventolin 2 puffs q.i.d. p.r.n. 3. Welchol 625 mg p.o. daily. 4. Hydrochlorothiazide 12.5 p.o. daily. 5. Tresiba as before. 6. Pioglitazone/metformin 15/500 one tablet p.o. b.i.d. 7. Atrovent HFA 2 puffs q.i.d. 8. Prednisone taper, keeping check on Accu-Cheks. Follow up with Dr. Finley in 3 days. BMP in 3 days. Low-potassium diet. Discussion and discharge planning more than 35 minutes. MMODL / IJN: [id number] /
--- NOTE | 2018-04-04 08:40 | CDI ---
Last Revision, May 2017 Documentation Clarification Form Date: 04/03/2018 12:29:00 PM From: Riri GoveaBETSY, CCDS Admit Date: 03/30/2018 11:48:00 PM Patient Name: Nicolasa Fortune Visit Number: [id number] Discharge Date: 04/03/2018 ATTENTION: The Clinical Documentation Specialists (CDI) and [facility] Coding Staff appreciate your assistance in clarifying documentation. Please respond to the clarification below the line at the bottom and electronically sign. The CDI & [facility] Coding staff will review the response and follow-up if needed. Please note: Queries are made part of the Legal Health Record. If you have any questions, please contact the author of this message via ITS. Maico Gonzales MD: The patient has diabetes, as indicated in progress note uncontrolled due to secondary steroids. History/Risk Factors: DM II, COPD, Hypertension, Hyperlipidemia, Peripheral Neuropathy, Obesity with BMI 37.6. Clinical Indicators: Patient presented with LLL pneumonia & acute COPD exacerbation. LAB: WBC 13.3, Pl Ct 533, neut 11.3, Na 133*, K 5.3*, BUN 22^ Glucose: 423 - 105 - 158 - 132 - 68* - 461 - 385 Treatment: IV fluid, Albuterol INH, IV Rocephin, IV Toradol, Insulin sc, IV Zofran, IV Solumedrol added 04/01. In order to capture the severity of Illness and necessary documentation specificity, please clarify: DM Type 2 o With Hyperglycemia o With Hypoglycemia Other, please specify Unable to Determine _ DM type 2 uncontrolled from hyperglycemia Please continue to document in your progress notes and discharge summary in order to capture severity of illness and risk of mortality. Include clinical findings that support your diagnosis. MTDD
--- NOTE | 2018-04-10 07:58 | DS ---
DISCHARGE SUMMARY CORRECTION: DATE OF ADMISSION: 03/30/2018 DATE OF DISCHARGE: FINAL DIAGNOSIS: Number 3 should read as diabetes mellitus type 2, uncontrolled from hyperglycemia secondary to steroids. MMFEDERICAL / CARMENN: [id number] /
== END 2018-04-03 22:45 | disposition home or self-care (01) | DRG 871 ==
LOC: EC 20:39 → 4SSUR 23:48
PROVIDERS: ADMIT Hospitalist; ATTEND Hospitalist
DX: A41.9 Sepsis, unspecified organism (principal); J15.6 Pneumonia due to other Gram-negative bacteria; J44.0 Chronic obstructive pulmonary disease with (acute) lower respiratory infection; J44.1 Chronic obstructive pulmonary disease with (acute) exacerbation; E11.42 Type 2 diabetes mellitus with diabetic polyneuropathy; E66.9 Obesity, unspecified; E78.5 Hyperlipidemia, unspecified; E87.5 Hyperkalemia; I10 Essential (primary) hypertension; T38.0X5A Adverse effect of glucocorticoids and synthetic analogues, initial encounter; Z68.37 Body mass index [BMI] 37.0-37.9, adult; Z79.4 Long term (current) use of insulin; Z79.899 Other long term (current) drug therapy; Z83.3 Family history of diabetes mellitus; Z87.891 Personal history of nicotine dependence; Z88.8 Allergy status to other drugs, medicaments and biological substances; Z98.51 Tubal ligation status; E11.65 Type 2 diabetes mellitus with hyperglycemia
CPT/HCPCS: 36415; 71046; 80048; 80053; 81001; 83036; 83605; 84132; 84484; 85025; 85610; 85730; 87040; 87086; 87502; 93005; 94640; 94760; 96361; 96365; 96375; 99285

== ENCOUNTER 2018-06-12 13:27 | Emergency (ER) | payer BC ==
[2018-06-12] MEDS ORDERED: SODIUM CHLORIDE 0.9% 1,000 ML IV STA (13:33)
--- NOTE | 2018-06-12 13:34 | ED ---
Weakness HPI - General Stated complaint: dizziness Time Seen by Provider: 06/12/18 13:33 Source: RN notes reviewed, old records reviewed - History of Present Illness Initial comments: This is a 61-year-old female the ER for evaluation. Patient does say for evaluation regards to dizziness, room spinning and symptoms of vertigo. History of vertigo. Patient denies any headache. No other neurological changes. No difficulty with family prior to evaluation. Patient has no modifying factors for symptoms at home, they are worse when she has movement, she took no medication for improvement -: hour(s) Location: other (Dizziness and vertigo) Severity: mild Severity scale (1-10): 2 Consistency: constant Improves with: none Worsens with: none Context: history of similar Associated Symptoms: denies other symptoms - Related Data Home Medications Medication Instructions Recorded Confirmed Gabapentin [Neurontin] 800 mg PO QID 04/14/15 06/12/18 Albuterol Inhaler [Ventolin Hfa 2 puff INHALATION RT-QID PRN 03/31/18 06/12/18 Inhaler] Colesevelam [Welchol] 625 mg PO DAILY 03/31/18 06/12/18 Hydrochlorothiazide [Hydrodiuril] 12.5 mg PO DAILY 03/31/18 06/12/18 Insulin Degludec [Tresiba See Protocol SQ HS 03/31/18 06/12/18 Flextouch U-200] Amitriptyline HCl [Elavil] 25 mg PO HS 06/12/18 06/12/18 Ibuprofen [Motrin] 800 mg PO Q12H PRN 06/12/18 06/12/18 Ipratropium [place] [Atrovent Hfa] 2 puff INHALATION RT-QID PRN 06/12/18 Pioglitazone HCl/Metformin HCl 1 tab PO BID 06/12/18 06/12/18 [Pioglitazone-Metformin 15850] Allergies Allergy/AdvReac Type Severity Reaction Status Date / Time [id number] Reductase AdvReac muscle Verified 06/12/18 16:05 Inhibitor pain/breakdown Review of Systems ROS Statement: Those systems with pertinent positive or pertinent negative responses have been documented in the HPI. ROS Other: All systems not noted in ROS Statement are negative. Past Medical History Past Medical History: Diabetes Mellitus, Hyperlipidemia, Hypertension Additional Past Medical History / Comment(s): peripheral neuropathy History of Any Multi-Drug Resistant Organisms: MRSA Date of last positivie culture/infection: 04/14/2015 MDRO Source:: head Past Surgical History: Tubal Ligation Past Anesthesia/Blood Transfusion Reactions: No Reported Reaction Past Psychological History: No Psychological Hx Reported Smoking Status: Former smoker Past Alcohol Use History: None Reported Past Drug Use History: None Reported - Past Family History Mother Family Medical History: Dementia, Diabetes Mellitus Father Family Medical History: Diabetes Mellitus, Deep Vein Thrombosis (DVT) General Exam General appearance: alert, in no apparent distress Head exam: Present: atraumatic, normocephalic, normal inspection Eye exam: Present: normal appearance, PERRL, EOMI. Absent: scleral icterus, conjunctival injection, periorbital swelling ENT exam: Present: normal exam, mucous membranes moist Neck exam: Present: normal inspection. Absent: tenderness, meningismus, lymphadenopathy Respiratory exam: Present: normal lung sounds bilaterally. Absent: respiratory distress, wheezes, rales, rhonchi, stridor Cardiovascular Exam: Present: regular rate, normal rhythm, normal heart sounds. Absent: systolic murmur, diastolic murmur, rubs, gallop, clicks GI/Abdominal exam: Present: soft, normal bowel sounds. Absent: distended, tenderness, guarding, rebound, rigid Extremities exam: Present: normal inspection, full ROM, normal capillary refill. Absent: tenderness, pedal edema, joint swelling, calf tenderness Back exam: Present: normal inspection Neurological exam: Present: alert, oriented X3, CN II-XII intact Psychiatric exam: Present: normal affect, normal mood Skin exam: Present: warm, dry, intact, normal color. Absent: rash Course Vital Signs 06/12/18 06/12/18 06/12/18 13:32 14:17 14:29 Temperature 97.7 F Pulse Rate 87 83 86 Respiratory 16 18 Rate Blood Pressure 187/96 177/89 189/102 O2 Sat by Pulse 92 L 98 Oximetry 06/12/18 06/12/18 15:00 17:06 Temperature 98.2 F Pulse Rate 96 91 Respiratory 18 18 Rate Blood Pressure 157/95 144/78 O2 Sat by Pulse 97 97 Oximetry - Reevaluation(s) Reevaluation #1: Medical record is reviewed Patient patient was able to ambulate to the bathroom without ataxia EKG Findings - EKG Comments: EKG Findings:: EKG shows normal sinus rhythm rate of 80, HI 172, QRS 86, QTc 4: 15 Medical Decision Making - Medical Decision Making 62 female the ER for evaluation. Patient has negative CT computed tomography scan, vertigo symptoms are improved to resolved. Able to ambulate without ataxia. Patient does have history of vertigo and can be discharged home - Lab Data Result diagrams: 06/12/18 14:00 06/12/18 14:00 Lab Results 06/12/18 06/12/18 06/12/18 Range/Units 14:00 14:00 14:00 WBC 5.9 (3.8-10.6) k/uL RBC 4.81 (3.80-5.40) m/uL Hgb 12.5 (11.4-16.0) gm/dL Hct 40.8 (34.0-46.0) % MCV 84.7 (80.0-100.0) fL MCH 25.9 (25.0-35.0) pg MCHC 30.5 L (31.0-37.0) g/dL RDW 15.5 (11.5-15.5) % Plt Count 315 (150-450) k/uL Neutrophils % 78 % Lymphocytes % 15 % Monocytes % 3 % Eosinophils % 2 % Basophils % 1 % Neutrophils # 4.6 (1.3-7.7) k/uL Lymphocytes # 0.9 L (1.0-4.8) k/uL Monocytes # 0.2 (0-1.0) k/uL Eosinophils # 0.1 (0-0.7) k/uL Basophils # 0.0 (0-0.2) k/uL Hypochromasia Slight PT (9.0-12.0) sec INR (<1.2) APTT (22.0-30.0) sec Sodium 140 (137-145) mmol/L Potassium 4.7 (3.5-5.1) mmol/L Chloride 104 (98-107) mmol/L Carbon Dioxide 29 (22-30) mmol/L Anion Gap 7 mmol/L BUN 19 H (7-17) mg/dL Creatinine 0.60 (0.52-1.04) mg/dL Est GFR (CKD-EPI)AfAm >90 (>60 ml/min/1.73 sqM) Est GFR (CKD-EPI)NonAf >90 (>60 ml/min/1.73 sqM) Glucose 193 H (74-99) mg/dL Plasma Lactic Acid John (0.7-2.0) mmol/L Calcium 9.5 (8.4-10.2) mg/dL Phosphorus 4.7 H (2.5-4.5) mg/dL Magnesium 1.5 L (1.6-2.3) mg/dL Total Bilirubin 0.5 (0.2-1.3) mg/dL AST 18 (14-36) U/L ALT 21 (9-52) U/L Alkaline Phosphatase 74 (38-126) U/L Total Creatine Kinase 48 (30-135) U/L CK-MB (CK-2) 0.8 (0.0-2.4) ng/mL CK-MB (CK-2) Rel Index 1.7 Troponin I <0.012 (0.000-0.034) ng/mL Total Protein 7.5 (6.3-8.2) g/dL Albumin 3.8 (3.5-5.0) g/dL Urine Color Urine Appearance (Clear) Urine pH (5.0-8.0) Ur Specific Industry (1.001-1.035) Urine Protein (Negative) Urine Glucose (UA) (Negative) Urine Ketones (Negative) Urine Blood (Negative) Urine Nitrite (Negative) Urine Bilirubin (Negative) Urine Urobilinogen (<2.0) mg/dL Ur Leukocyte Esterase (Negative) Urine RBC (0-5) /hpf Urine WBC (0-5) /hpf Ur Squamous Epith Cells (0-4) /hpf 06/12/18 06/12/18 06/12/18 Range/Units 14:00 14:00 15:40 WBC (3.8-10.6) k/uL RBC (3.80-5.40) m/uL Hgb (11.4-16.0) gm/dL Hct (34.0-46.0) % MCV (80.0-100.0) fL MCH (25.0-35.0) pg MCHC (31.0-37.0) g/dL RDW (11.5-15.5) % Plt Count (150-450) k/uL Neutrophils % % Lymphocytes % % Monocytes % % Eosinophils % % Basophils % % Neutrophils # (1.3-7.7) k/uL Lymphocytes # (1.0-4.8) k/uL Monocytes # (0-1.0) k/uL Eosinophils # (0-0.7) k/uL Basophils # (0-0.2) k/uL Hypochromasia PT 9.9 (9.0-12.0) sec INR 0.9 (<1.2) APTT 22.0 (22.0-30.0) sec Sodium (137-145) mmol/L Potassium (3.5-5.1) mmol/L Chloride (98-107) mmol/L Carbon Dioxide (22-30) mmol/L Anion Gap mmol/L BUN (7-17) mg/dL Creatinine (0.52-1.04) mg/dL Est GFR (CKD-EPI)AfAm (>60 ml/min/1.73 sqM) Est GFR (CKD-EPI)NonAf (>60 ml/min/1.73 sqM) Glucose (74-99) mg/dL Plasma Lactic Acid John 0.7 (0.7-2.0) mmol/L Calcium (8.4-10.2) mg/dL Phosphorus (2.5-4.5) mg/dL Magnesium (1.6-2.3) mg/dL Total Bilirubin (0.2-1.3) mg/dL AST (14-36) U/L ALT (9-52) U/L Alkaline Phosphatase (38-126) U/L Total Creatine Kinase (30-135) U/L CK-MB (CK-2) (0.0-2.4) ng/mL CK-MB (CK-2) Rel Index Troponin I (0.000-0.034) ng/mL Total Protein (6.3-8.2) g/dL Albumin (3.5-5.0) g/dL Urine Color Light Yellow Urine Appearance Clear (Clear) Urine pH 7.5 (5.0-8.0) Ur Specific Industry 1.007 (1.001-1.035) Urine Protein 1+ H (Negative) Urine Glucose (UA) 2+ H (Negative) Urine Ketones Negative (Negative) Urine Blood Negative (Negative) Urine Nitrite Negative (Negative) Urine Bilirubin Negative (Negative) Urine Urobilinogen <2.0 (<2.0) mg/dL Ur Leukocyte Esterase Negative (Negative) Urine RBC <1 (0-5) /hpf Urine WBC 1 (0-5) /hpf Ur Squamous Epith Cells 1 (0-4) /hpf - Radiology Data Radiology results: report reviewed (CT brain is negative for acute disease), image reviewed Disposition Clinical Impression: Benign paroxysmal positional vertigo Disposition: HOME SELF-CARE Condition: Good Instructions: Vertigo (ED) Is patient prescribed a controlled substance at d/c from ED?: No Referrals: Noah Finley DO [Primary Care Provider] - 1-2 days
[2018-06-12] MEDS ORDERED: diphenhydrAMINE 50 MG/ML 1 ML VIAL IVP STA (14:20)
[2018-06-12] MEDS ORDERED: ONDANSETRON 4 MG/2 ML VIAL IVP STA (14:20)
[2018-06-12 14:31] VITALS: RESP 18
[2018-06-12 14:48] LABS: Basophils % (A) 1 %; Eosinophils # (A) 0.1 k/uL (0-0.7); Eosinophils % (A) 2 %; HCT 40.8 % (34.0-46.0); HGB 12.5 gm/dL (11.4-16.0); Hypochromasia Slight; Lymphocytes # (A) 0.9 k/uL (1.0-4.8); Lymphocytes % (A) 15 %; MCH 25.9 pg (25.0-35.0); MCHC 30.5 g/dL (31.0-37.0); MCV 84.7 fL (80.0-100.0); Mean Platelet Volume 6.9; Monocytes # (A) 0.2 k/uL (0-1.0); Monocytes % (A) 3 %; Neutrophils # (A) 4.6 k/uL (1.3-7.7); Neutrophils % (A) 78 %; Platelet Count 315 k/uL (150-450); RBC 4.81 m/uL (3.80-5.40); RDW 15.5 % (11.5-15.5); WBC 5.9 k/uL (3.8-10.6)
[2018-06-12 14:52] LABS: ALT 21 U/L (9-52); AST 18 U/L (14-36); Albumin 3.8 g/dL (3.5-5.0); Alkaline Phosphatase 74 U/L (38-126); Anion Gap 7 mmol/L; Blood Urea Nitrogen 19 mg/dL (7-17); Calcium 9.5 mg/dL (8.4-10.2); Carbon Dioxide 29 mmol/L (22-30); Chloride 104 mmol/L (98-107); Glucose 193 mg/dL (74-99); Magnesium 1.5 mg/dL (1.6-2.3); Phosphorus 4.7 mg/dL (2.5-4.5); Potassium 4.7 mmol/L (3.5-5.1); Sodium 140 mmol/L (137-145); Total Bilirubin 0.5 mg/dL (0.2-1.3); Total Protein 7.5 g/dL (6.3-8.2)
[2018-06-12 14:54] LABS: INR 0.9 (<1.2); Prothrombin Time 9.9 sec (9.0-12.0)
--- NOTE | 2018-06-12 15:01 | CT ---
EXAMINATION TYPE: CT brain wo con DATE OF EXAM: 06/12/2018 HISTORY: Dizziness. CT DLP: 1142.4 mGycm. Automated Exposure Control for Dose Reduction was Utilized. TECHNIQUE: CT scan of the head is performed without contrast. COMPARISON: CT brain April 14, 2015 FINDINGS: There is no acute intracranial hemorrhage or midline shift identified. There is diffuse v entricular and sulcal prominence consistent with diffuse age-related cerebral atrophy. There is low- attenuation in the periventricular white matter consistent with chronic small vessel ischemic change. The globes are intact and the visualized sinuses are clear. No suspicious opacification mastoid a ir cells is present. IMPRESSION: No acute intracranial hemorrhage or midline shift. There is mild to minimal diffuse age -related cerebral atrophy and chronic small vessel ischemic change redemonstrated.
[2018-06-12 15:02] LABS: Creatine Kinase 48 U/L (30-135)
[2018-06-12 15:16] LABS: Creatine Kinase MB 0.8 ng/mL (0.0-2.4); Troponin I <0.012 ng/mL (0.000-0.034)
[2018-06-12 16:25] LABS: Appearance,Urine Clear (Clear); Bilirubin,Urine Negative (Negative); Blood,Urine Negative (Negative); Color,Urine Light Yellow; Glucose,Urine (UA) 2+ (Negative); Ketones,Urine Negative (Negative); Leukocyte Esterase,Urine Negative (Negative); Nitrite,Urine Negative (Negative); PH, Urine 7.5 (5.0-8.0); Protein,Urine 1+ (Negative); RBC,Urine <1 /hpf (0-5); Specific Gravity,Urine 1.007 (1.001-1.035); Squamous Epithelial Cell,Urine 1 /hpf (0-4); Urobilinogen,Urine <2.0 mg/dL (<2.0); WBC,Urine 1 /hpf (0-5)
[2018-06-12 17:07] VITALS: BP 144/78; PULSE 91; TEMP 98.2
== END 2018-06-12 17:06 | disposition home or self-care (01) ==
LOC: EC 13:27
DX: H81.10 Benign paroxysmal vertigo, unspecified ear (principal); E78.5 Hyperlipidemia, unspecified; E11.42 Type 2 diabetes mellitus with diabetic polyneuropathy; I10 Essential (primary) hypertension; Z86.14 Personal history of Methicillin resistant Staphylococcus aureus infection; Z87.891 Personal history of nicotine dependence; Z79.4 Long term (current) use of insulin; Z79.899 Other long term (current) drug therapy; Z88.8 Allergy status to other drugs, medicaments and biological substances
CPT/HCPCS: 36415; 93005; 80053; 82550; 82553; 83605; 83735; 84100; 84484; 85025; 85610; 85730; 81001; 87086; 70450; 99285; 96374; 96375; 96361; J1200; J2405

== ENCOUNTER → 2018-09-27 | Outpatient (CLI) | payer BC ==
--- NOTE | 2018-09-27 11:18 | XR ---
EXAMINATION TYPE: XR chest 2V DATE OF EXAM: 09/27/2018 COMPARISON: Prior chest x-ray 03/30/[address] chest 11/03/2017 HISTORY: Annual physical exam, R 91.8 TECHNIQUE: Frontal and lateral views of the chest are obtained. FINDINGS: The patient is rotated. Ossific density along the paraspinal region corresponds to osteoph yte. There is no focal air space opacity, pleural effusion, or pneumothorax seen. The cardiac silhou ette size is within normal limits. The osseous structures are intact. IMPRESSION: No acute cardiopulmonary process.
== END | disposition home or self-care (01) ==
LOC: RADXRMAIN 10:28
PROVIDERS: ATTEND Family Medicine
DX: R91.8 Other nonspecific abnormal finding of lung field (principal)
CPT/HCPCS: 71046

== ENCOUNTER → 2018-09-27 | Outpatient (CLI) | payer BC ==
[2018-09-27 17:43] LABS: Albumin 3.9 g/dL (3.80-4.90); Albumin/Globulin Ratio 1.5 (1.60-3.17); Anion Gap 9.2 mmol/L (4.00-12.00); Calcium 9.3 mg/dL (8.7-10.3); Carbon Dioxide 26.8 mmol/L (21.6-31.8); Globulin 2.6 g/dL (1.6-3.3); LDL Cholesterol,Calculated 131.6 mg/dL (0.0-131.0); Potassium 4.7 mmol/L (3.5-5.5); Total Bilirubin 0.4 mg/dL (0.3-1.2); Total Protein 6.5 g/dL (6.2-8.2); VLDL Calculation 29.4 mg/dL (5.00-40.00)
== END | disposition home or self-care (01) ==
LOC: LABWHC1 09:50
PROVIDERS: ATTEND Internal Medicine Interventional Cardiology
DX: E78.2 Mixed hyperlipidemia (principal)
CPT/HCPCS: 36415; 80053; 80061

== ENCOUNTER 2018-10-02 12:01 | Inpatient (IN) | payer BC ==
[~2018-10-02 12:01] MED LIST: ALPRAZolam 0.5 MG TAB PO PRN; ASPIRIN 325 MG TAB PO ONE; NITROGLYCERIN SL TABS 0.4 MG TAB SUBLINGUAL PRN; SODIUM CHLORIDE 0.9% 1,000 ML in EMPTY BAG 1 BAG IV ONE
[2018-10-02 12:43] LABS: Glucose,Whole Blood 120 mg/dL (75-99)
[2018-10-02 12:50] LABS: Basophils % (A) 1 %; Eosinophils # (A) 0.2 k/uL (0-0.7); Eosinophils % (A) 3 %; HCT 37.4 % (34.0-46.0); HGB 12.4 gm/dL (11.4-16.0); Lymphocytes # (A) 1.4 k/uL (1.0-4.8); Lymphocytes % (A) 22 %; MCH 27.4 pg (25.0-35.0); MCHC 33.1 g/dL (31.0-37.0); MCV 82.7 fL (80.0-100.0); Monocytes # (A) 0.3 k/uL (0-1.0); Monocytes % (A) 5 %; Neutrophils # (A) 4.1 k/uL (1.3-7.7); Neutrophils % (A) 67 %; Platelet Count 319 k/uL (150-450); RBC 4.52 m/uL (3.80-5.40); RDW 14.2 % (11.5-15.5); WBC 6.1 k/uL (3.8-10.6)
[2018-10-02] MEDS ORDERED: VERAPAMIL 2.5 MG/ML 2 ML AMP ONE (13:41)
[2018-10-02] MEDS ORDERED: fentaNYL (PF) 50 MCG/ML 2 ML AMP ONE (13:42)
[2018-10-02] MEDS ORDERED: fentaNYL (PF) 50 MCG/ML 2 ML AMP IV ONE (13:42)
[2018-10-02] MEDS ORDERED: LIDOCAINE 1% INJ 10MG/ML (20 ML MDV) SQ ONE (13:46)
[2018-10-02] MEDS ORDERED: VERAPAMIL SYRINGE (5 MG/10 ML) INTRAARTER ONE (13:48)
[2018-10-02] MEDS: NITROGLYCERIN 1000MCG/10ML SYRINGE INTRACORON ONE ×4 (13:51→14:53)
[2018-10-02] MEDS: HEPARIN SODIUM 1,000 UN/ML (10ML VL) IV ONE ×2 (13:52→14:05)
[2018-10-02] MEDS ORDERED: PRASUGREL 10 MG TAB PO ONE (14:05)
[2018-10-02] MEDS ORDERED: IOPAMIDOL-370 125ML BTL INJ ONE (14:10)
[2018-10-02 15:13] LABS: ABG HCO3 13 mmol/L (21-25); ABG Oxygen Saturation 85.7 % (94-97); ABG PCO2 49 mmHg (35-45); ABG PH 7.05 (7.35-7.45); ABG PO2 67 mmHg (83-108)
[2018-10-02 15:40] LABS: Glucose,Whole Blood 114 mg/dL (75-99)
[2018-10-02 15:50] LABS: ABG Base Excess -3.8 mmol/L; ABG HCO3 24 mmol/L (21-25); ABG PCO2 61 mmHg (35-45); ABG PH 7.22 (7.35-7.45); ABG PO2 133 mmHg (83-108)
[2018-10-02] MEDS ORDERED: DEXTROSE 5% IN WATER 50 ML BAG ONE (15:53)
[2018-10-02] MEDS ORDERED: SODIUM BICARB 8.4% 50 ML SYR (1 MEQ/ML) ONE (15:53)
[2018-10-02] MEDS ORDERED: SODIUM CHLORIDE 0.9% 1,000 ML BAG ONE (15:53)
[2018-10-02] MEDS ORDERED: ATROPINE SULFATE 0.1 MG/ML 10ML SYRINGE ONE (15:53)
[2018-10-02] MEDS ORDERED: EPINEPHrine 10 ML SYRINGE (0.1 MG/ML) ONE (15:53)
[2018-10-02] MEDS ORDERED: AMIODARONE 50 MG/ML 3 ML VIAL IV ONE (15:53)
[2018-10-02] MEDS ORDERED: MAG HYDROX/AL HYDROX/SIMETH 30 ML CUP PO PRN (16:25)
[2018-10-02] MEDS ORDERED: ATROPINE SULFATE 0.1 MG/ML 10ML SYRINGE IV PRN (16:25)
[2018-10-02] MEDS ORDERED: RX INFO: IV CONTRAST WAS GIVEN 1 EACH MISC MISCELLANE PRN (16:25)
[2018-10-02] MEDS ORDERED: NITROGLYCERIN SL TABS 0.4 MG TAB SUBLINGUAL PRN (16:25)
[2018-10-02] MEDS ORDERED: ZOLPIDEM 5 MG TAB PO PRN (16:25)
[2018-10-02] MEDS ORDERED: SODIUM CHLORIDE 0.9% 1,000 ML IV SCH (16:30)
[2018-10-02 16:59] LABS: Basophils # (A) 0.1 k/uL (0-0.2); Basophils % (A) 1 %; Eosinophils # (A) 0.2 k/uL (0-0.7); Eosinophils % (A) 1 %; HCT 39.9 % (34.0-46.0); HGB 11.7 gm/dL (11.4-16.0); Hypochromasia Marked; Lymphocytes # (A) 6.6 k/uL (1.0-4.8); Lymphocytes % (A) 43 %; MCH 27.4 pg (25.0-35.0); MCHC 29.3 g/dL (31.0-37.0); Mean Platelet Volume 8.1; Monocytes # (A) 0.2 k/uL (0-1.0); Monocytes % (A) 1 %; Neutrophils # (A) 7.8 k/uL (1.3-7.7); Neutrophils % (A) 51 %; Platelet Count 239 k/uL (150-450); RBC 4.27 m/uL (3.80-5.40); RDW 13.9 % (11.5-15.5); WBC 15.4 k/uL (3.8-10.6)
[2018-10-02 17:01] LABS: Albumin 2.8 g/dL (3.5-5.0); Calcium 8.1 mg/dL (8.4-10.2); Potassium 4.2 mmol/L (3.5-5.1); Total Bilirubin 0.5 mg/dL (0.2-1.3); Total Protein 5.4 g/dL (6.3-8.2)
[2018-10-02 17:03] LABS: MCV 93.5 fL (80.0-100.0)
[2018-10-02] MEDS ORDERED: HEPARIN SODIUM,PORCINE 5,000 UNIT/ML 1 ML VIAL IV PRN ×2 (17:03→19:40)
[2018-10-02] MEDS ORDERED: HEPARIN SODIUM,PORCINE 12,500 UNIT in DEXTROSE 5% IN WATER 500 ML IV SCH ×2 (17:15)
[2018-10-02] MEDS ORDERED: HEPARIN SOD,PORK IN 0.45% NACL 25,000 UNIT in 0.45% NACL 1 250ML.BAG IV SCH ×2 (17:15)
[2018-10-02 17:34] LABS: ABG Base Excess -12.1 mmol/L; ABG HCO3 15 mmol/L (21-25); ABG Oxygen Saturation 99.3 % (94-97); ABG PCO2 30 mmHg (35-45); ABG PH 7.29 (7.35-7.45); ABG PO2 201 mmHg (83-108); ABG TCO2 15 mmol/L (19-24)
[2018-10-02] MEDS: EPINEPHrine 4 MG in DEXTROSE 5% IN WATER 250 ML IV SCH ×2 (17:54)
--- NOTE | 2018-10-02 17:58 | XR ---
EXAMINATION: XR chest 1V DATE AND TIME: 10/02/2018 5:18 PM CLINICAL INDICATION: PHH; Post intubation TECHNIQUE: AP portable supine COMPARISON: 09/27/2018 FINDINGS: ET tube tip is superimposed over the proximal right mainstem bronchus, and may be better pl aced if retracted 4 cm. No abnormal gas collections are evident on this supine radiograph. There is partial silhouetting of the left hemidiaphragm consistent with partial left lower lobe atele ctasis. There is diffuse interstitial pattern suggesting mild interstitial phase pulmonary edema. Mildly enlarged cardiac silhouette. IMPRESSION: INTUBATION OF THE PROXIMAL RIGHT MAINSTEM BRONCHUS. Discussed abnormal results with patient's nurse tj Escudero at 5:55 PM, to help expedite clinical management. Pulmonary edema. Partial LLL airlessness.
[2018-10-02] MEDS: NOREPINEPHRINE 4 MG in SODIUM CHLORIDE 0.9% 250 ML IV SCH (18:15)
[2018-10-02 18:32] LABS: Basophils # (A) 0.1 k/uL (0-0.2); Basophils % (A) 1 %; Eosinophils # (A) 0.1 k/uL (0-0.7); Eosinophils % (A) 1 %; HCT 37.3 % (34.0-46.0); HGB 11.6 gm/dL (11.4-16.0); Hypochromasia Moderate; Lymphocytes # (A) 2.3 k/uL (1.0-4.8); Lymphocytes % (A) 18 %; MCH 27.2 pg (25.0-35.0); MCHC 31.1 g/dL (31.0-37.0); Monocytes # (A) 0.2 k/uL (0-1.0); Monocytes % (A) 2 %; Neutrophils % (A) 79 %; Platelet Count 342 k/uL (150-450); RBC 4.26 m/uL (3.80-5.40); RDW 14.6 % (11.5-15.5); WBC 12.7 k/uL (3.8-10.6)
[2018-10-02 18:33] LABS: MCV 87.5 fL (80.0-100.0)
[2018-10-02] MEDS: PROPOFOL 1,000 MG in EMPTY BAG 1 BAG IV SCH ×3 (18:34→22:43)
[2018-10-02 18:46] LABS: Calcium 8.4 mg/dL (8.4-10.2); Potassium 4.7 mmol/L (3.5-5.1)
[2018-10-02 18:49] LABS: INR 1.1 (<1.2); Partial Thromboplastin Time 69.7 sec (22.0-30.0); Prothrombin Time 11.4 sec (9.0-12.0)
--- NOTE | 2018-10-02 19:02 | P.CNPUL ---
History of Present Illness Consult date: 10/02/18 Chief complaint: Cardiac arrest, acute hypoxic respiratory failure History of present illness: A 63-year-old female patient with known history of coronary artery disease, hypertension and diabetes mellitus and hyperlipidemia and peripheral neuropathy. She is an ex-smoker. The patient came in for elective cardiac catheterization during which the patient was found to have a mid LAD lesion. During the procedure, the patient went into cardiac arrest. As the angioplasty was being performed, the patient developed profound hypotension and went into a PEA. Note that the patient continued to have on and off hypotension and cardiac arrest for approximately 60 minutes in the [employer] [facility]. During the process, the LAD stent was the fluid, resuscitation was done during which the patient received CPR and defibrillation. Pressors were initiated. Patient was intubated. Please refer to the cardiology note regarding the details of the cardiac arrest and resuscitation procedure. Note that in and pallor was also inserted to augment her cardiac output and hemodynamics. I saw the patient immediately after she arrived to the intensive care unit. She was withdrawing to painful stimulation. I had to put that on propofol for sedation and currently propofol is running. 40 g per KG per minute. The patient was intubated on a mechanical ventilator. I noted the blood gases and the patient had a component of respiratory metabolic acidosis. I made the appropriate vent changes and the patient is currently on a VC plus mode with a tidal volume of 450, respiratory rate of 26, FiO2 of 100% with a PEEP of 7. The most recent blood gas showed a pH of 7.29 with a pCO2 of 30 and pO2 of 21 and this was on the fentanyl 100%. FiO2 will be gradually weaned off. Chest x-ray was done and ET tube was in the proximal right mainstem. The tube was withdrawn by around 2 cm. Chest x-ray was consistent with pulmonary edema and the patient was having some frothy rest or secretions in the orotracheal tube. I was informed by cardiology that the patient did not have any coronary dissection or perforation. There was no evidence of a tamponade. No valvular disruption. Impala was in place in the right femoral artery. The patient also had a sheath in the right femoral vein. She has adequate pulses in all 4 extremities. The patient was maintained on a combination of factors including 3 g of norepinephrine infusion and 10 g of levo fed infusion. Urine output has been no other of 30 mL an hour. The patient has been afebrile. She is on dual platelet agents including aspirin and Effient. IV heparin will be also initiated. Review of Systems ROS unobtainable: due to endotracheal tube Past Medical History Past Medical History: Coronary Artery Disease (CAD), Diabetes Mellitus, Hyperlipidemia, Hypertension Additional Past Medical History / Comment(s): Diabetic peripheral neuropathy and history of TIA approximately 15 years ago without any ongoing neurological deficits. History of Any Multi-Drug Resistant Organisms: MRSA Date of last positivie culture/infection: 04/14/2015 MDRO Source:: head Past Surgical History: Tubal Ligation Additional Past Surgical History / Comment(s): bilat cataraTS Past Anesthesia/Blood Transfusion Reactions: No Reported Reaction Smoking Status: Former smoker - Past Family History Mother Family Medical History: Dementia, Diabetes Mellitus Father Family Medical History: Diabetes Mellitus, Deep Vein Thrombosis (DVT) Medications and Allergies Home Medications Medication Instructions Recorded Confirmed Type Colesevelam [Welchol] 625 mg PO DAILY 03/31/18 10/02/18 History Hydrochlorothiazide [Hydrodiuril] 12.5 mg PO DAILY 03/31/18 10/02/18 History Insulin Degludec [Tresiba See Protocol SQ HS 03/31/18 10/02/18 History Flextouch U-200] Amitriptyline HCl [Elavil] 25 mg PO HS 06/12/18 10/02/18 History Ibuprofen [Motrin] 800 mg PO Q12H PRN 06/12/18 10/02/18 History Pioglitazone HCl/Metformin HCl 1 tab PO BID 06/12/18 10/02/18 History [Pioglitazone-Metformin 15-850] Gabapentin 800 mg PO QID 10/02/18 10/02/18 History Allergies Allergy/AdvReac Type Severity Reaction Status Date / Time Tlppnka-Lur-Ere Reductase AdvReac muscle Verified 10/02/18 18:37 Inhibitor pain/breakdown Physical Exam Vitals: Vital Signs Temp Pulse Resp BP BP Pulse Ox 10/02/18 17:10 98.8 F 96 22 122/69 10/02/18 12:25 97.1 F L 89 18 172/85 179/91 97 Intake and Output 10/02/18 10/02/18 10/02/18 06:59 14:59 22:59 Intake Total 50 200.357 Output Total 100 Balance 50 100.357 Intake: IV 50 200 Sodium Chloride 0.9% 1, 200 000 ml @ 100 mls/hr IV . Q10H [facility] Rx#:[id number] Intake, IV Titration 0.357 Amount Propofol 1,000 mg In 0.357 Empty Bag 1 bag @ Titrate IV .Q0M [facility] Rx#: [id number] Output: Urine 100 Gen. appearance the patient is sedated, comfortable active distress. The patient is currently on propofol and withdrawing to painful stimulation. Head exam was generally normal. There was no scleral icterus or corneal arcus. Mucous membranes were moist. Neck was supple and without jugular venous distension, thyromegaly, or carotid bruits. Carotids were easily palpable bilaterally. There was no adenopathy. Lungs sounds are diminished bilaterally and there are some scattered rhonchi. There is some frothy secretions with orotracheal tube. Cardiac exam revealed the PMI to be normally situated and sized. The rhythm was regular and no extrasystoles were noted during several minutes of auscultation. The first and second heart sounds were normal and physiologic splitting of the second heart sound was noted. There were no murmurs, rubs, clicks, or gallops. Abdominal exam revealed normal bowel sounds. The abdomen was soft, non-tender, and without masses, organomegaly, or appreciable enlargement of the abdominal aorta. Extremities: The patient diminished yet palpable pulses all 4 extremities. No cyanosis or clubbing. Examination of the skin revealed no evidence of significant rashes, suspicious appearing nevi or other concerning lesions. Neurologically the patient withdraws to painful stimulation. Pupils are slightly elevated as the patient received atropine prior to her coming to the ICU. No facial asymmetry. No Babinski. No clonus. No seizure activity noted. Results - Laboratory Findings CBC and BMP: 10/02/18 17:53 10/02/18 16:22 ABG ABG pH 7.29 (7.35-7.45) L 10/02/18 17:31 ABG pCO2 30 mmHg (35-45) L 10/02/18 17:31 ABG pO2 201 mmHg (83-108) H 10/02/18 17:31 ABG O2 Saturation 99.3 % (94-97) H 10/02/18 17:31 Abnormal lab findings: Abnormal Labs 10/02/18 10/02/18 10/02/18 12:37 15:07 15:21 WBC MCHC Neutrophils # Lymphocytes # ABG pH 7.05 L* ABG pCO2 49 H ABG pO2 67 L ABG HCO3 13 L ABG Total CO2 ABG O2 Saturation 85.7 L Carbon Dioxide Creatinine Glucose POC Glucose (mg/dL) 120 H 114 H Calcium AST Total Protein Albumin 10/02/18 10/02/18 10/02/18 15:47 16:22 16:22 WBC 15.4 H MCHC 29.3 L Neutrophils # 7.8 H Lymphocytes # 6.6 H ABG pH 7.22 L ABG pCO2 61 H ABG pO2 133 H ABG HCO3 ABG Total CO2 ABG O2 Saturation 98.0 H Carbon Dioxide 14 L Creatinine 1.10 H Glucose 485 H POC Glucose (mg/dL) Calcium 8.1 L AST 86 H Total Protein 5.4 L Albumin 2.8 L 10/02/18 10/02/18 17:31 17:53 WBC 12.7 H MCHC Neutrophils # 10.0 H Lymphocytes # ABG pH 7.29 L ABG pCO2 30 L ABG pO2 201 H ABG HCO3 15 L ABG Total CO2 15 L ABG O2 Saturation 99.3 H Carbon Dioxide Creatinine Glucose POC Glucose (mg/dL) Calcium AST Total Protein Albumin - Diagnostic Findings Chest x-ray: image reviewed Assessment and Plan Plan: 1 acute cardiac arrest during cardiac catheterization and stenting of the LAD. The patient had on and off hypotension cardiac arrest including V. fib and PEA during the resuscitation efforts. Note that the patient was obtaining blood pressure and pulse in between these episodes of cardiac arrest in the [place] resuscitation process was around 60 minutes at least. Ultimately the patient had a stable pressure. Impala was inserted for hemodynamic suppor. The patient was started on a combination of epinephrine and norepinephrine and the patient got transferred to the intensive care unit. Currently the patient is on pressors and maintaining a appropriate blood pressure with adequate pulses in all 4 extremities 2 coronary artery disease with insertion of a stent in the LAD for a mid LAD lesion. Please refer to the cardiac catheterization report. Currently on a combination of aspirin and Effient. 3 acute hypoxic respiratory failure secondary to above, currently intubated on a mechanical ventilator 4 pulmonary edema 5 hypotension secondary to above, currently on pressors and Impala for hemofynamic support 6 diabetes mellitus 7 hyperlipidemia 8 diabetic peripheral neuropathy Plan Continue current vent support. Monitor the blood gases. This is a triple-lumen catheter in. Obtain a CVP monitor. Keep the ampulla and for now for hemodynamic support. Continue the combination of norepinephrine and epinephrine infusion and will going to gradually wean down the norepinephrine based on the patient's blood pressure and urine output to maintain a mean arterial pressure above 65 at least. Continue aspirin. Continue Effient. Start IV heparin. Add DuoNeb nebulized treatments around the clock. Keep the patient sedated with propofol for now. Echocardiogram is to follow. Cardiology is on the case. The patient be kept in ICU for further monitoring and continue to follow her condition is critical and will make further recommendations based on her overall progress.
[2018-10-02] MEDS: HEPARIN SODIUM,PORCINE 12,500 UNIT in DEXTROSE 5% IN WATER 500 ML IV SCH ×2 (19:12)
--- NOTE | 2018-10-02 19:34 | XR ---
EXAMINATION: XR chest 1V portable DATE AND TIME: 10/02/2018 6:49 PM CLINICAL INDICATION: PHH; Tube placement TECHNIQUE: Departmental protocol COMPARISON: None FINDINGS: SUPPORT LINES AND CATHETERS: ET tube tip presently at the renée, representing interval improvement. However, recommend 2 cm retraction at this time. Left IJ central line tip superimposed over the right atrium. Evident IABP tip superimposed over the expected position of the ascending aorta. CLINICAL FINDINGS: The lungs appear to be clear, except for left lower lobe airlessness. No acute car diomediastinal or bone or soft tissue findings. IMPRESSION: ET TUBE TIP AT THE RENÉE, AND MAY BE BETTER PLACED 2 CM CEPHALAD.
[2018-10-02] MEDS ORDERED: INSULIN REGULAR BOLUS (FROM DRIP BAG) IV PRN (19:46)
[2018-10-02] MEDS: HEPARIN SOD,PORK IN 0.45% NACL 25,000 UNIT in 0.45% NACL 1 250ML.BAG IV SCH (20:24)
[2018-10-02] MEDS: INSULIN REGULAR 100 UNIT in SODIUM CHLORIDE 0.9% 100 ML IV SCH (20:49)
--- NOTE | 2018-10-02 20:51 | CC ---
CARDIAC CATHETERIZATION REPORT Mrs. Fortune is a 63-year-old female with known history of diabetes and hyperlipidemia who presented an abnormal myocardial perfusion imaging with an anterior wall defect. The patient has a remote history of TIA. Because of her presentation and her multiple risk factors, recommendation was made regarding cardiac catheterization. The procedures as well as risks and complications were discussed with the patient, who was in full understanding and agreement. PROCEDURE: Patient was brought to the laborer vineyard in a fasting, semi-sedated state after receiving fentanyl and Benadryl. She was draped and prepped it conventional fashion. Using Xylocaine anesthesia and Seldinger technique, a 6-Pashto sheath was introduced into the right radial artery. Selective right and left angiography was performed using 5-Pashto 3-1/2 bend, right and left David catheters. Multiple views were taken of the arteries, including hemiaxial views. Following that, angioplasty and stenting was performed. FINDINGS: FLUOROSCOPY: There was calcification involving the coronary arteries, predominantly in the LAD and the right coronary artery. LEFT MAIN: This is a short-sized vessel bifurcating immediately into LAD and left circumflex. The left main coronary artery has no evidence of obstructive coronary artery disease. LEFT ANTERIOR DESCENDING ARTERY: This vessel has a 20% to 30% proximal lesion in the mid vessel and is subtotally occluded with competitive flow into the distal LAD and slow antegrade flow. It is calcified at the site of the lesion. LEFT CIRCUMFLEX: This is a nondominant vessel, large in caliber, giving rise to 3 obtuse marginal branches. The left circumflex as well as its branches have no evidence of obstructive coronary artery disease. RIGHT CORONARY ARTERY: This is a large dominant vessel bifurcating distally into PDA and posterolateral segment and branches. The right coronary artery in the proximal segment has a 50% to 60% plaque. It has mild plaque in the mid segment. The rest of the vessel has no high-grade stenosis. Left ventriculogram was not performed. CONCLUSION: 1. Calcified coronary arteries. 2. Subtotal occluded mid LAD. 3. Moderate significant disease in the ostium of the right coronary artery. RECOMMENDATIONS: In view of findings and anatomy, I have recommended proceeding with angioplasty and stenting of the LAD. The procedure, its risks and complications were discussed with the patient, who is in full understanding and agreement. MMODL / IJN: [id number] /
[2018-10-02] MEDS ORDERED: SODIUM CHLORIDE 0.9% 1,000 ML IV ONE (20:59)
[2018-10-02] MEDS: IPRATROPIUM-ALBUTEROL 3 ML NEB INHALATION SCH (21:00)
--- NOTE | 2018-10-02 21:00 | PTCA ---
PERCUTANEOUSTRANS CORORONARY ANGIOGRAPHY Mrs. Fortune is a 63-year-old female with a history of diabetes and hyperlipidemia who presented with abnormal myocardial perfusion imaging, underwent cardiac catheterization, and was found to have a calcified LAD and subtotally occluded vessel. Recommendation was made regarding angioplasty and stenting. The procedure, its risks and complications were discussed with the patient, who was in full understanding and agreement. PROCEDURE: A 6-Bruneian FL3.5 guiding catheter was introduced into the system. After cannulating the left main, a 0.014 balanced medium-weight J-wire was advanced and positioned in the diagonal branch. Subsequently another 0.014 balanced medium-weight J-wire with the help of a FineCross catheter was used to cross the subtotal occlusion, and the wire was positioned in the distal LAD. Following that, a 2.5 x 15 mm Trek balloon was advanced and one inflation at 8 atmospheres was done. Following that, the balloon was removed. At that point the patient was complaining of chest discomfort and had EKG changes with a drop in her blood pressure. There was significant drop in the blood pressure requiring fluid and Levophed. Because of the persistent drop in the blood pressure, a 6-Bruneian sheath was introduced in the right femoral artery and a 6-Bruneian sheath in the right femoral vein. Subsequently the arterial sheath was exchanged through the dilator and an Impella catheter was positioned in the left ventricle under fluoroscopy. During that time, the patient received CPR and cardioversion for ventricular fibrillation. She required multiple doses of epinephrine as well as bicarb. She was intubated. At the same time, a 2.5 x 15 mm Xience Hollie stent was deployed and post dilated at 16 atmospheres. Subsequently another 2.5 x 15 mm Xience Hollie stent was deployed and post dilated at 16 atmospheres proximal to the first one. Following that, the balloon and the guidewire were withdrawn back into the guiding catheter. Images were obtained and repeated. Those images reveal MELISSA-3 flow into the LAD. The patient remained hemodynamically very unstable with a drop in the blood pressure requiring repeated episodes of CPR in spite of the Impella CP catheter. The patient underwent an echocardiogram that revealed no evidence of pericardial effusion. Her blood gases were monitored. The patient was started on IV Levophed as well as epinephrine drip and she was transferred to the ICU in critical condition. She had received prior to the start of the procedure 9000 units of intravenous heparin as well as intra-arterial verapamil and loading dose of Effient. RESULTS: 1. Successful stenting of subtotally occluded LAD with reduction of stenosis from 99% to 0%. 2. Cardiogenic shock with no evidence of tamponade requiring mechanical support with an Impella catheter and multiple bouts of CPR. 3. Respiratory failure requiring mechanical ventilation. RECOMMENDATIONS: Patient will be continued on supportive care with mechanical support. The prognosis remains quite guarded. I have discussed those finding with the family and they are aware of the situation. Duration of procedure was 121 minutes. MMFEDERICAL / CARMENN: [id number] / STEPHANIE
[2018-10-02 21:07] LABS: Glucose,Whole Blood 466 mg/dL (75-99)
[2018-10-02] MEDS: CHLORHEXIDINE GLUCONATE 15 ML CUP MUCOUS MEM SCH (21:20)
[2018-10-02 21:31] LABS: Appearance,Urine Cloudy (Clear); Bacteria,Urine Rare /hpf; Bilirubin,Urine Negative (Negative); Blood,Urine Large (Negative); Color,Urine Yellow; Glucose,Urine (UA) 3+ (Negative); Ketones,Urine Negative (Negative); Leukocyte Esterase,Urine Negative (Negative); Mucus,Urine Rare /hpf; Nitrite,Urine Negative (Negative); PH, Urine 5.5 (5.0-8.0); Protein,Urine 2+ (Negative); RBC,Urine 122 /hpf (0-5); Urobilinogen,Urine <2.0 mg/dL (<2.0)
[2018-10-02 21:32] LABS: Specific Gravity,Urine >1.050 (1.001-1.035)
[2018-10-02 21:44] LABS: Partial Thromboplastin Time 44.3 sec (22.0-30.0)
[2018-10-02 22:34] LABS: Glucose,Whole Blood 333 mg/dL (75-99)
[2018-10-02 23:27] LABS: Glucose,Whole Blood 298 mg/dL (75-99)
--- NOTE | 2018-10-02 23:41 | PCN ---
PROCEDURE NOTE PREOPERATIVE DIAGNOSIS: Acute cardiac arrest. POSTOPERATIVE DIAGNOSIS: Acute cardiac arrest. PROCEDURE: Insertion of arterial line catheter, left radial artery. DESCRIPTION OF PROCEDURE: A time-out was completed verifying correct patient, procedure, site, positioning, and implant(s) or special equipment if applicable. Yusef's test was performed to ensure adequate perfusion. The patient's left wrist was prepped and draped in sterile fashion. 1% Lidocaine was used to anesthetize the area. An 18G Arrow arterial line was introduced into the radial/femoral artery. The catheter was threaded over the guide wire and the needle was removed with appropriate pulsatile blood return. Blood loss was minimal. The catheter was then sutured in place to the skin and a sterile dressing applied. Perfusion to the extremity distal to the point of catheter insertion was checked and found to be adequate. The patient tolerated the procedure well and there were no complications. MMODL / IJN: [id number] /
--- NOTE | 2018-10-02 23:47 | PCN ---
PROCEDURE NOTE PREOPERATIVE DIAGNOSIS: Acute cardiac arrest. POSTOPERATIVE DIAGNOSIS: Acute cardiac arrest. PROCEDURE: Insertion of triple lumen catheter, left internal jugular vein. DESCRIPTION OF PROCEDURE: Indication: Hemodynamic monitoring/Intravenous access. A time-out was completed verifying correct patient, procedure, site, positioning, and implant(s) or special equipment if applicable. The patient was placed in a dependent position appropriate for triple lumen catheter placement based on the vein to be cannulated. The patient's left neck was prepped and draped in sterile fashion. 1% Lidocaine was used to anesthetize the surrounding skin area. A triple lumen 9F Cordis catheter was introduced into the left internal jugular vein using Seldinger technique. The catheter was threaded smoothly over the guide wire and appropriate blood return was obtained. Each lumen of the catheter was evacuated of air and flushed with sterile saline. The catheter was then sutured in place to the skin and a sterile dressing applied. Perfusion to the extremity distal to the point of catheter insertion was checked and found to be adequate. No bedside complications or bleeding. Chest x-ray showed no evidence of pneumothorax. MMODL / IJN: [id number] /
[2018-10-03 00:15] LABS: Glucose,Whole Blood 275 mg/dL (75-99)
[2018-10-03 01:23] LABS: Glucose,Whole Blood 240 mg/dL (75-99)
[2018-10-03 01:57] LABS: Partial Thromboplastin Time 55.5 sec (22.0-30.0)
[2018-10-03] MEDS: NOREPINEPHRINE 4 MG in SODIUM CHLORIDE 0.9% 250 ML IV SCH (02:00)
[2018-10-03] MEDS: PROPOFOL 1,000 MG in EMPTY BAG 1 BAG IV SCH ×6 (02:15→23:52)
[2018-10-03 02:22] LABS: Glucose,Whole Blood 216 mg/dL (75-99)
[2018-10-03 03:22] LABS: Glucose,Whole Blood 203 mg/dL (75-99)
[2018-10-03 04:21] LABS: Glucose,Whole Blood 197 mg/dL (75-99)
[2018-10-03 05:15] LABS: Glucose,Whole Blood 180 mg/dL (75-99)
[2018-10-03 05:23] LABS: Basophils % (A) 0 %; Eosinophils % (A) 0 %; HCT 29.5 % (34.0-46.0); Lymphocytes # (A) 1.1 k/uL (1.0-4.8); Lymphocytes % (A) 5 %; MCH 27.4 pg (25.0-35.0); MCHC 33.7 g/dL (31.0-37.0); Mean Platelet Volume 8.1; Monocytes # (A) 0.8 k/uL (0-1.0); Monocytes % (A) 4 %; Neutrophils # (A) 20.5 k/uL (1.3-7.7); Neutrophils % (A) 91 %; Platelet Count 331 k/uL (150-450); RBC 3.64 m/uL (3.80-5.40); RDW 14.4 % (11.5-15.5); WBC 22.5 k/uL (3.8-10.6)
[2018-10-03 05:30] LABS: MCV 81.1 fL (80.0-100.0)
[2018-10-03 05:32] LABS: ABG HCO3 23 mmol/L (21-25); ABG Oxygen Saturation 99.6 % (94-97); ABG PCO2 31 mmHg (35-45); ABG PH 7.47 (7.35-7.45); ABG PO2 184 mmHg (83-108); ABG TCO2 24 mmol/L (19-24)
[2018-10-03 05:42] LABS: INR 1.1 (<1.2); Partial Thromboplastin Time 69.4 sec (22.0-30.0); Prothrombin Time 11.8 sec (9.0-12.0)
[2018-10-03 05:49] LABS: Albumin 2.6 g/dL (3.5-5.0); Calcium 7.7 mg/dL (8.4-10.2); Magnesium 1.5 mg/dL (1.6-2.3); Potassium 3.4 mmol/L (3.5-5.1); Total Bilirubin 0.7 mg/dL (0.2-1.3); Total Protein 5.4 g/dL (6.3-8.2)
[2018-10-03 06:21] LABS: Glucose,Whole Blood 163 mg/dL (75-99)
[2018-10-03] MEDS ORDERED: Potassium Replacement Protocol 1 EACH MISC MISCELLANE PRN (06:37)
[2018-10-03] MEDS ORDERED: Magnesium Replacement Protocol 1 EACH MISC MISCELLANE PRN (06:37)
[2018-10-03 07:07] LABS: Glucose,Whole Blood 147 mg/dL (75-99)
[2018-10-03] MEDS: IPRATROPIUM-ALBUTEROL 3 ML NEB INHALATION SCH ×4 (07:40→19:33)
--- NOTE | 2018-10-03 07:40 | XR ---
EXAMINATION TYPE: XR chest 1V portable DATE OF EXAM: 10/03/2018 COMPARISON: Prior chest x-ray 10/02/2018 HISTORY: LVAD placement TECHNIQUE: Single frontal view of the chest is obtained. FINDINGS: Intra-aortic device shows the pointed aspect at the level of the transverse aorta in the t horax, intraventricular portion is also noted. It is been repositioned in the interval. Left jugular central venous catheter is present with the distal tip in the right atrium. Endotracheal tube is over lying appropriate position. There is an orogastric tube present with the distal tip not included on t he exam. No evident pneumothorax, basilar increased density obscures the left hemidiaphragm, there is patchy increased density at the right lung base and interstitium is increased. Heart size is stable. Aorta is dense. IMPRESSION: Interval repositioning of the device has been performed as described. No other significa nt interval change. There may be a component of interstitial edema, basilar atelectasis versus edema, effusion, correlate to exclude pneumonia, follow-up recommended.
[2018-10-03] MEDS: MAGNESIUM SULFATE-D5W PMX 1 GM in DEXTROSE/WATER 1 100ML.BAG IVPB SCH ×2 (08:34→09:56)
[2018-10-03] MEDS: POTASSIUM BICARBONATE/CIT AC 20 MEQ TABLET.EFF NG-TUBE SCH ×2 (08:34→09:55)
[2018-10-03] MEDS: ASPIRIN 81 MG PO SCH (08:35)
[2018-10-03] MEDS: NOREPINEPHRINE 32 MG in SODIUM CHLORIDE 0.9% 218 ML IV SCH (08:35)
[2018-10-03] MEDS: CHLORHEXIDINE GLUCONATE 15 ML CUP MUCOUS MEM SCH ×2 (08:35→21:37)
[2018-10-03 09:31] LABS: Glucose,Whole Blood 167 mg/dL (75-99)
[2018-10-03] MEDS: PRASUGREL 10 MG TAB PO SCH (09:55)
--- NOTE | 2018-10-03 10:09 | ECHOF ---
Referral Reason:R/O Pericardial Effusion MEASUREMENTS -------- HEIGHT: 149.9 cm WEIGHT: 89.4 kg BP: FINDINGS -------- Overall left ventricular systolic function is severely impaired with, an EF between 20 - 25 %. There is no pericardial effusion. CONCLUSIONS -------- 1. There is no pericardial effusion. REGULATORY COORDINATOR: Kacie Almaraz RDCS
--- NOTE | 2018-10-03 10:28 | ECHOF ---
Referral Reason:cad MEASUREMENTS -------- HEIGHT: 149.9 cm WEIGHT: 89.4 kg BP: 98/66 IVSd: 1.2 cm (0.6 - 1.1) LVIDd: 3.6 cm (3.9 - 5.3) LVPWd: 1.4 cm (0.6 - 1.1) IVSs: 1.7 cm LVIDs: 2.6 cm LVPWs: 2.0 cm LA Diam: 2.6 cm (2.7 - 3.8) RVIDd: 2.1 cm (< 3.3) LAESV Index (A-L): 22.80 ml/m Ao Diam: 3.1 cm (2.0 - 3.7) AV Cusp: 1.4 cm (1.5 - 2.6) MV E Avila: 0.59 m/s MV DecT: 277 ms MV A Avila: 0.79 m/s MV E/A Ratio: 0.74 %FS: 0.00 % IVSd: 2.92 cm (0.6 - 1.1) FINDINGS -------- Paced rhythm. This was a technically adequate study. The left ventricular size is normal. There is moderate concentric left ventricular hypertrophy. O verall left ventricular systolic function is moderate-severely impaired with, an EF between 30 - 35 % . The right ventricle is normal in size. Normal LA size by volume 22+/-6 ml/m2. The right atrium is normal in size. There is mild aortic valve sclerosis. Mild mitral annular calcification present. The tricuspid valve was not well visualized. Trace/mild (physiologic) pulmonic regurgitation. The aortic root size is normal. There is no pericardial effusion. CATHETER ACROSS AORTIC VALVE CONCLUSIONS -------- 1. Paced rhythm. 2. This was a technically adequate study. 3. The left ventricular size is normal. 4. There is moderate concentric left ventricular hypertrophy. 5. Overall left ventricular systolic function is moderate-severely impaired with, an EF between 30 - 35 %. 6. The right ventricle is normal in size. 7. Normal LA size by volume 22+/-6 ml/m2. 8. The right atrium is normal in size. 9. There is mild aortic valve sclerosis. 10. Mild mitral annular calcification present. 11. The tricuspid valve was not well visualized. 12. Trace/mild (physiologic) pulmonic regurgitation. 13. The aortic root size is normal. 14. There is no pericardial effusion. HEDGE FUND MANAGER: Kacie Almaraz RDCS
[2018-10-03] MEDS ORDERED: SODIUM CHLORIDE 0.9% 500 ML 500 ML IV ONE ×2 (11:08→14:15)
[2018-10-03 11:10] LABS: Glucose,Whole Blood 195 mg/dL (75-99)
--- NOTE | 2018-10-03 11:39 | P.PN ---
Subjective Progress Note Date: 10/03/18 Principal diagnosis: Coronary artery disease/cardiogenic shock This is a 63-year-old female patient who was admitted to the hospital yesterday and underwent a heart catheterization on successful stenting of the mid LAD with the procedure was complicated by cardiogenic shock of unknown etiology. An Impella was placed and the patient was intubated and was admitted to the intens [facility] care unit. On follow-up with her today, she continues to be intubated on mechanical ventilation. She continues to be requiring very small doses of norepinephrine as well as epinephrine. She is coming down on both vasopressors. She is on dual antiplatelet therapy. We'll holding metoprolol at this point in view of the cardiogenic shock and the need for vasopressors. She continues to be on heparin IV as well for the Impella. The chest x-ray from this morning seems to be slightly wet. Objective - Vital Signs Vital signs: Vital Signs Temp 99.3 F 10/03/18 08:00 Pulse 100 10/03/18 11:30 Resp 20 10/03/18 11:30 BP 95/70 10/03/18 11:30 Pulse Ox 98 10/03/18 11:30 Intake & Output 10/02/18 10/03/18 10/03/18 18:59 06:59 18:59 Intake Total 896.059 6106.180 622.121 Output Total 100 840 150 Balance 053.884 7361.180 472.121 Weight 95.1 kg Intake: IV 250 2300 400 Sodium Chloride 0.9% 1, 200 1300 400 000 ml @ 100 mls/hr IV . Q10H [facility] Rx#:[id number] Sodium Chloride 0.9% 1, 1000 000 ml @ 999 mls/hr IV . Q1H1M [facility] Rx#:[id number] Intake, IV Titration 0.357 819.180 222.121 Amount EPINEPHrine 4 mg In 174.164 Dextrose 5% in Water 250 ml @ 0.033 MCG/KG/MIN 11. 058 mls/hr IV .[id number] [facility] Rx#:[id number] Insulin Regular 100 unit 47.890 13.231 In Sodium Chloride 0.9% 100 ml @ Per Protocol IV .Q0M [facility] Rx#:[id number] Norepinephrine 4 mg In 466.216 34.726 Sodium Chloride 0.9% 250 ml @ 0.11 MCG/KG/MIN 37. 45 mls/hr IV .Q6H47M [facility] Rx#:[id number] Propofol 1,000 mg In 0.357 305.074 Empty Bag 1 bag @ Titrate IV .Q0M [facility] Rx#: [id number] Output: Urine 100 610 150 Emesis 230 Other: Voiding Method Indwelling Catheter Indwelling Catheter Indwelling Catheter ABP, PAP, CO, CI - Last Documented Arterial Blood Pressure 116/64 - Constitutional General appearance: Present: no acute distress - Respiratory Respiratory: bilateral: CTA - Cardiovascular Rhythm: regular - Labs CBC & Chem 7: 10/03/18 05:00 10/03/18 05:00 Labs: Abnormal Lab Results - Last 24 Hours (Table) 10/02/18 10/02/18 10/02/18 Range/Units 12:37 15:07 15:21 WBC (3.8-10.6) k/uL RBC (3.80-5.40) m/uL Hgb (11.4-16.0) gm/dL Hct (34.0-46.0) % MCHC (31.0-37.0) g/dL Neutrophils # (1.3-7.7) k/uL Lymphocytes # (1.0-4.8) k/uL APTT (22.0-30.0) sec ABG pH 7.05 L* (7.35-7.45) ABG pCO2 49 H (35-45) mmHg ABG pO2 67 L (83-108) mmHg ABG HCO3 13 L (21-25) mmol/L ABG Total CO2 (19-24) mmol/L ABG O2 Saturation 85.7 L (94-97) % Potassium (3.5-5.1) mmol/L Chloride (98-107) mmol/L Carbon Dioxide (22-30) mmol/L BUN (7-17) mg/dL Creatinine (0.52-1.04) mg/dL Glucose (74-99) mg/dL POC Glucose (mg/dL) 120 H 114 H (75-99) mg/dL Calcium (8.4-10.2) mg/dL Magnesium (1.6-2.3) mg/dL AST (14-36) U/L ALT (9-52) U/L Lactate Dehydrogenase (313-618) U/L Total Protein (6.3-8.2) g/dL Albumin (3.5-5.0) g/dL Urine Appearance (Clear) Ur Specific [place] (1.001-1.035) Urine Protein (Negative) Urine Glucose (UA) (Negative) Urine Blood (Negative) Urine RBC (0-5) /hpf Urine WBC (0-5) /hpf Urine Bacteria (None) /hpf Urine Mucus (None) /hpf 10/02/18 10/02/18 10/02/18 Range/Units 15:47 16:22 16:22 WBC 15.4 H (3.8-10.6) k/uL RBC (3.80-5.40) m/uL Hgb (11.4-16.0) gm/dL Hct (34.0-46.0) % MCHC 29.3 L (31.0-37.0) g/dL Neutrophils # 7.8 H (1.3-7.7) k/uL Lymphocytes # 6.6 H (1.0-4.8) k/uL APTT (22.0-30.0) sec ABG pH 7.22 L (7.35-7.45) ABG pCO2 61 H (35-45) mmHg ABG pO2 133 H (83-108) mmHg ABG HCO3 (21-25) mmol/L ABG Total CO2 (19-24) mmol/L ABG O2 Saturation 98.0 H (94-97) % Potassium (3.5-5.1) mmol/L Chloride (98-107) mmol/L Carbon Dioxide 14 L (22-30) mmol/L BUN (7-17) mg/dL Creatinine 1.10 H (0.52-1.04) mg/dL Glucose 485 H (74-99) mg/dL POC Glucose (mg/dL) (75-99) mg/dL Calcium 8.1 L (8.4-10.2) mg/dL Magnesium (1.6-2.3) mg/dL AST 86 H (14-36) U/L ALT (9-52) U/L Lactate Dehydrogenase (313-618) U/L Total Protein 5.4 L (6.3-8.2) g/dL Albumin 2.8 L (3.5-5.0) g/dL Urine Appearance (Clear) Ur Specific [place] (1.001-1.035) Urine Protein (Negative) Urine Glucose (UA) (Negative) Urine Blood (Negative) Urine RBC (0-5) /hpf Urine WBC (0-5) /hpf Urine Bacteria (None) /hpf Urine Mucus (None) /hpf 10/02/18 10/02/18 10/02/18 Range/Units 17:31 17:53 17:53 WBC 12.7 H (3.8-10.6) k/uL RBC (3.80-5.40) m/uL Hgb (11.4-16.0) gm/dL Hct (34.0-46.0) % MCHC (31.0-37.0) g/dL Neutrophils # 10.0 H (1.3-7.7) k/uL Lymphocytes # (1.0-4.8) k/uL APTT 69.7 H (22.0-30.0) sec ABG pH 7.29 L (7.35-7.45) ABG pCO2 30 L (35-45) mmHg ABG pO2 201 H (83-108) mmHg ABG HCO3 15 L (21-25) mmol/L ABG Total CO2 15 L (19-24) mmol/L ABG O2 Saturation 99.3 H (94-97) % Potassium (3.5-5.1) mmol/L Chloride (98-107) mmol/L Carbon Dioxide (22-30) mmol/L BUN (7-17) mg/dL Creatinine (0.52-1.04) mg/dL Glucose (74-99) mg/dL POC Glucose (mg/dL) (75-99) mg/dL Calcium (8.4-10.2) mg/dL Magnesium (1.6-2.3) mg/dL AST (14-36) U/L ALT (9-52) U/L Lactate Dehydrogenase (313-618) U/L Total Protein (6.3-8.2) g/dL Albumin (3.5-5.0) g/dL Urine Appearance (Clear) Ur Specific [place] (1.001-1.035) Urine Protein (Negative) Urine Glucose (UA) (Negative) Urine Blood (Negative) Urine RBC (0-5) /hpf Urine WBC (0-5) /hpf Urine Bacteria (None) /hpf Urine Mucus (None) /hpf 10/02/18 10/02/18 10/02/18 Range/Units 17:53 20:45 21:00 WBC (3.8-10.6) k/uL RBC (3.80-5.40) m/uL Hgb (11.4-16.0) gm/dL Hct (34.0-46.0) % MCHC (31.0-37.0) g/dL Neutrophils # (1.3-7.7) k/uL Lymphocytes # (1.0-4.8) k/uL APTT 44.3 H (22.0-30.0) sec ABG pH (7.35-7.45) ABG pCO2 (35-45) mmHg ABG pO2 (83-108) mmHg ABG HCO3 (21-25) mmol/L ABG Total CO2 (19-24) mmol/L ABG O2 Saturation (94-97) % Potassium (3.5-5.1) mmol/L Chloride (98-107) mmol/L Carbon Dioxide 16 L (22-30) mmol/L BUN 20 H (7-17) mg/dL Creatinine (0.52-1.04) mg/dL Glucose 406 H (74-99) mg/dL POC Glucose (mg/dL) 466 H (75-99) mg/dL Calcium (8.4-10.2) mg/dL Magnesium (1.6-2.3) mg/dL AST (14-36) U/L ALT (9-52) U/L Lactate Dehydrogenase (313-618) U/L Total Protein (6.3-8.2) g/dL Albumin (3.5-5.0) g/dL Urine Appearance (Clear) Ur Specific [place] (1.001-1.035) Urine Protein (Negative) Urine Glucose (UA) (Negative) Urine Blood (Negative) Urine RBC (0-5) /hpf Urine WBC (0-5) /hpf Urine Bacteria (None) /hpf Urine Mucus (None) /hpf 10/02/18 10/02/18 10/02/18 Range/Units 21:00 21:00 22:21 WBC (3.8-10.6) k/uL RBC (3.80-5.40) m/uL Hgb (11.4-16.0) gm/dL Hct (34.0-46.0) % MCHC (31.0-37.0) g/dL Neutrophils # (1.3-7.7) k/uL Lymphocytes # (1.0-4.8) k/uL APTT (22.0-30.0) sec ABG pH (7.35-7.45) ABG pCO2 (35-45) mmHg ABG pO2 (83-108) mmHg ABG HCO3 (21-25) mmol/L ABG Total CO2 (19-24) mmol/L ABG O2 Saturation (94-97) % Potassium (3.5-5.1) mmol/L Chloride (98-107) mmol/L Carbon Dioxide (22-30) mmol/L BUN (7-17) mg/dL Creatinine (0.52-1.04) mg/dL Glucose (74-99) mg/dL POC Glucose (mg/dL) 333 H (75-99) mg/dL Calcium (8.4-10.2) mg/dL Magnesium (1.6-2.3) mg/dL AST (14-36) U/L ALT (9-52) U/L Lactate Dehydrogenase 2992 H (313-618) U/L Total Protein (6.3-8.2) g/dL Albumin (3.5-5.0) g/dL Urine Appearance Cloudy H (Clear) Ur Specific [place] >1.050 H (1.001-1.035) Urine Protein 2+ H (Negative) Urine Glucose (UA) 3+ H (Negative) Urine Blood Large H (Negative) Urine RBC 122 H (0-5) /hpf Urine WBC 41 H (0-5) /hpf Urine Bacteria Rare H (None) /hpf Urine Mucus Rare H (None) /hpf 10/02/18 10/03/18 10/03/18 Range/Units 23:14 00:03 01:10 WBC (3.8-10.6) k/uL RBC (3.80-5.40) m/uL Hgb (11.4-16.0) gm/dL Hct (34.0-46.0) % MCHC (31.0-37.0) g/dL Neutrophils # (1.3-7.7) k/uL Lymphocytes # (1.0-4.8) k/uL APTT (22.0-30.0) sec ABG pH (7.35-7.45) ABG pCO2 (35-45) mmHg ABG pO2 (83-108) mmHg ABG HCO3 (21-25) mmol/L ABG Total CO2 (19-24) mmol/L ABG O2 Saturation (94-97) % Potassium (3.5-5.1) mmol/L Chloride (98-107) mmol/L Carbon Dioxide (22-30) mmol/L BUN (7-17) mg/dL Creatinine (0.52-1.04) mg/dL Glucose (74-99) mg/dL POC Glucose (mg/dL) 298 H 275 H 240 H (75-99) mg/dL Calcium (8.4-10.2) mg/dL Magnesium (1.6-2.3) mg/dL AST (14-36) U/L ALT (9-52) U/L Lactate Dehydrogenase (313-618) U/L Total Protein (6.3-8.2) g/dL Albumin (3.5-5.0) g/dL Urine Appearance (Clear) Ur Specific [place] (1.001-1.035) Urine Protein (Negative) Urine Glucose (UA) (Negative) Urine Blood (Negative) Urine RBC (0-5) /hpf Urine WBC (0-5) /hpf Urine Bacteria (None) /hpf Urine Mucus (None) /hpf 10/03/18 10/03/18 10/03/18 Range/Units 01:30 01:30 02:11 WBC (3.8-10.6) k/uL RBC (3.80-5.40) m/uL Hgb (11.4-16.0) gm/dL Hct (34.0-46.0) % MCHC (31.0-37.0) g/dL Neutrophils # (1.3-7.7) k/uL Lymphocytes # (1.0-4.8) k/uL APTT 55.5 H (22.0-30.0) sec ABG pH (7.35-7.45) ABG pCO2 (35-45) mmHg ABG pO2 (83-108) mmHg ABG HCO3 (21-25) mmol/L ABG Total CO2 (19-24) mmol/L ABG O2 Saturation (94-97) % Potassium (3.5-5.1) mmol/L Chloride (98-107) mmol/L Carbon Dioxide (22-30) mmol/L BUN (7-17) mg/dL Creatinine (0.52-1.04) mg/dL Glucose (74-99) mg/dL POC Glucose (mg/dL) 216 H (75-99) mg/dL Calcium (8.4-10.2) mg/dL Magnesium (1.6-2.3) mg/dL AST (14-36) U/L ALT (9-52) U/L Lactate Dehydrogenase 3773 H (313-618) U/L Total Protein (6.3-8.2) g/dL Albumin (3.5-5.0) g/dL Urine Appearance (Clear) Ur Specific [place] (1.001-1.035) Urine Protein (Negative) Urine Glucose (UA) (Negative) Urine Blood (Negative) Urine RBC (0-5) /hpf Urine WBC (0-5) /hpf Urine Bacteria (None) /hpf Urine Mucus (None) /hpf 10/03/18 10/03/18 10/03/18 Range/Units 03:12 04:04 05:00 WBC 22.5 H (3.8-10.6) k/uL RBC 3.64 L (3.80-5.40) m/uL Hgb 10.0 L D (11.4-16.0) gm/dL Hct 29.5 L (34.0-46.0) % MCHC (31.0-37.0) g/dL Neutrophils # 20.5 H (1.3-7.7) k/uL Lymphocytes # (1.0-4.8) k/uL APTT (22.0-30.0) sec ABG pH (7.35-7.45) ABG pCO2 (35-45) mmHg ABG pO2 (83-108) mmHg ABG HCO3 (21-25) mmol/L ABG Total CO2 (19-24) mmol/L ABG O2 Saturation (94-97) % Potassium (3.5-5.1) mmol/L Chloride (98-107) mmol/L Carbon Dioxide (22-30) mmol/L BUN (7-17) mg/dL Creatinine (0.52-1.04) mg/dL Glucose (74-99) mg/dL POC Glucose (mg/dL) 203 H 197 H (75-99) mg/dL Calcium (8.4-10.2) mg/dL Magnesium (1.6-2.3) mg/dL AST (14-36) U/L ALT (9-52) U/L Lactate Dehydrogenase (313-618) U/L Total Protein (6.3-8.2) g/dL Albumin (3.5-5.0) g/dL Urine Appearance (Clear) Ur Specific [place] (1.001-1.035) Urine Protein (Negative) Urine Glucose (UA) (Negative) Urine Blood (Negative) Urine RBC (0-5) /hpf Urine WBC (0-5) /hpf Urine Bacteria (None) /hpf Urine Mucus (None) /hpf 10/03/18 10/03/18 10/03/18 Range/Units 05:00 05:00 05:04 WBC (3.8-10.6) k/uL RBC (3.80-5.40) m/uL Hgb (11.4-16.0) gm/dL Hct (34.0-46.0) % MCHC (31.0-37.0) g/dL Neutrophils # (1.3-7.7) k/uL Lymphocytes # (1.0-4.8) k/uL APTT 69.4 H (22.0-30.0) sec ABG pH (7.35-7.45) ABG pCO2 (35-45) mmHg ABG pO2 (83-108) mmHg ABG HCO3 (21-25) mmol/L ABG Total CO2 (19-24) mmol/L ABG O2 Saturation (94-97) % Potassium 3.4 L (3.5-5.1) mmol/L Chloride 110 H (98-107) mmol/L Carbon Dioxide (22-30) mmol/L BUN 32 H (7-17) mg/dL Creatinine 1.46 H (0.52-1.04) mg/dL Glucose 158 H (74-99) mg/dL POC Glucose (mg/dL) 180 H (75-99) mg/dL Calcium 7.7 L (8.4-10.2) mg/dL Magnesium 1.5 L (1.6-2.3) mg/dL AST 467 H (14-36) U/L ALT 118 H (9-52) U/L Lactate Dehydrogenase 4034 H (313-618) U/L Total Protein 5.4 L (6.3-8.2) g/dL Albumin 2.6 L (3.5-5.0) g/dL Urine Appearance (Clear) Ur Specific [place] (1.001-1.035) Urine Protein (Negative) Urine Glucose (UA) (Negative) Urine Blood (Negative) Urine RBC (0-5) /hpf Urine WBC (0-5) /hpf Urine Bacteria (None) /hpf Urine Mucus (None) /hpf 10/03/18 10/03/18 10/03/18 Range/Units 05:30 06:10 06:54 WBC (3.8-10.6) k/uL RBC (3.80-5.40) m/uL Hgb (11.4-16.0) gm/dL Hct (34.0-46.0) % MCHC (31.0-37.0) g/dL Neutrophils # (1.3-7.7) k/uL Lymphocytes # (1.0-4.8) k/uL APTT (22.0-30.0) sec ABG pH 7.47 H (7.35-7.45) ABG pCO2 31 L (35-45) mmHg ABG pO2 184 H (83-108) mmHg ABG HCO3 (21-25) mmol/L ABG Total CO2 (19-24) mmol/L ABG O2 Saturation 99.6 H (94-97) % Potassium (3.5-5.1) mmol/L Chloride (98-107) mmol/L Carbon Dioxide (22-30) mmol/L BUN (7-17) mg/dL Creatinine (0.52-1.04) mg/dL Glucose (74-99) mg/dL POC Glucose (mg/dL) 163 H 147 H (75-99) mg/dL Calcium (8.4-10.2) mg/dL Magnesium (1.6-2.3) mg/dL AST (14-36) U/L ALT (9-52) U/L Lactate Dehydrogenase (313-618) U/L Total Protein (6.3-8.2) g/dL Albumin (3.5-5.0) g/dL Urine Appearance (Clear) Ur Specific [place] (1.001-1.035) Urine Protein (Negative) Urine Glucose (UA) (Negative) Urine Blood (Negative) Urine RBC (0-5) /hpf Urine WBC (0-5) /hpf Urine Bacteria (None) /hpf Urine Mucus (None) /hpf 10/03/18 10/03/18 Range/Units 09:19 10:58 WBC (3.8-10.6) k/uL RBC (3.80-5.40) m/uL Hgb (11.4-16.0) gm/dL Hct (34.0-46.0) % MCHC (31.0-37.0) g/dL Neutrophils # (1.3-7.7) k/uL Lymphocytes # (1.0-4.8) k/uL APTT (22.0-30.0) sec ABG pH (7.35-7.45) ABG pCO2 (35-45) mmHg ABG pO2 (83-108) mmHg ABG HCO3 (21-25) mmol/L ABG Total CO2 (19-24) mmol/L ABG O2 Saturation (94-97) % Potassium (3.5-5.1) mmol/L Chloride (98-107) mmol/L Carbon Dioxide (22-30) mmol/L BUN (7-17) mg/dL Creatinine (0.52-1.04) mg/dL Glucose (74-99) mg/dL POC Glucose (mg/dL) 167 H 195 H (75-99) mg/dL Calcium (8.4-10.2) mg/dL Magnesium (1.6-2.3) mg/dL AST (14-36) U/L ALT (9-52) U/L Lactate Dehydrogenase (313-618) U/L Total Protein (6.3-8.2) g/dL Albumin (3.5-5.0) g/dL Urine Appearance (Clear) Ur Specific [place] (1.001-1.035) Urine Protein (Negative) Urine Glucose (UA) (Negative) Urine Blood (Negative) Urine RBC (0-5) /hpf Urine WBC (0-5) /hpf Urine Bacteria (None) /hpf Urine Mucus (None) /hpf Microbiology - Last 24 Hours (Table) 10/02/18 21:00 Urine Culture - Preliminary Urine,Voided Assessment and Plan Assessment: Assessment #1 coronary artery disease and status post PCI of the LAD #2 cardiogenic shock requiring mechanical support #3 acute respiratory failure Plan #1 continue dual antiplatelet therapy #2 continue the IV heparin as far as we have the mechanical support with Impella #3 follow-up with the patient
[2018-10-03 12:07] LABS: Partial Thromboplastin Time 87.2 sec (22.0-30.0)
[2018-10-03 12:08] LABS: Glucose,Whole Blood 164 mg/dL (75-99)
[2018-10-03 13:16] LABS: Glucose,Whole Blood 163 mg/dL (75-99)
[2018-10-03 14:25] LABS: HCT 25.3 % (34.0-46.0); MCH 27.7 pg (25.0-35.0); MCHC 33.7 g/dL (31.0-37.0); Mean Platelet Volume 8.1; Platelet Count 250 k/uL (150-450); RBC 3.09 m/uL (3.80-5.40); RDW 14.7 % (11.5-15.5); WBC 22.7 k/uL (3.8-10.6)
[2018-10-03 14:28] LABS: HGB 8.6 gm/dL (11.4-16.0)
[2018-10-03 14:30] LABS: Glucose,Whole Blood 150 mg/dL (75-99)
[2018-10-03 14:40] LABS: Hemoglobin A1C 9.7 % (4.0-6.0)
[2018-10-03] MEDS: EPINEPHrine 4 MG in DEXTROSE 5% IN WATER 250 ML IV SCH ×2 (16:39)
[2018-10-03 16:45] LABS: Glucose,Whole Blood 155 mg/dL (75-99)
--- NOTE | 2018-10-03 17:46 | P.PN ---
Subjective A 63-year-old female patient with known history of coronary artery disease, hypertension and diabetes mellitus and hyperlipidemia and peripheral neuropathy. She is an ex-smoker. The patient came in for elective cardiac catheterization during which the patient was found to have a mid LAD lesion. During the procedure, the patient went into cardiac arrest. As the angioplasty was being performed, the patient developed profound hypotension and went into a PEA. Note that the patient continued to have on and off hypotension and cardiac arrest for approximately 60 minutes in the [facility] [employer] [facility]. During the process, the LAD stent was the fluid, resuscitation was done during which the patient received CPR and defibrillation. Pressors were initiated. Patient was intubated. Please refer to the cardiology note regarding the details of the cardiac arrest and resuscitation procedure. Note that in and pallor was also inserted to augment her cardiac output and hemodynamics. I saw the patient immediately after she arrived to the intensive care unit. She was withdrawing to painful stimulation. I had to put that on propofol for sedation and currently propofol is running. 40 g per KG per minute. The patient was intubated on a mechanical ventilator. I noted the blood gases and the patient had a component of respiratory metabolic acidosis. I made the appropriate vent changes and the patient is currently on a VC plus mode with a tidal volume of 450, respiratory rate of 26, FiO2 of 100% with a PEEP of 7. The most recent blood gas showed a pH of 7.29 with a pCO2 of 30 and pO2 of 21 and this was on the fentanyl 100%. FiO2 will be gradually weaned off. Chest x-ray was done and ET tube was in the proximal right mainstem. The tube was withdrawn by around 2 cm. Chest x-ray was consistent with pulmonary edema and the patient was having some frothy rest or secretions in the orotracheal tube. I was informed by cardiology that the patient did not have any coronary dissection or perforation. There was no evidence of a tamponade. No valvular disruption. Impala was in place in the right femoral artery. The patient also had a sheath in the right femoral vein. She has adequate pulses in all 4 extremities. The patient was maintained on a combination of factors including 3 g of norepinephrine infusion and 10 g of levo fed infusion. Urine output has been no other of 30 mL an hour. The patient has been afebrile. She is on dual platelet agents including aspirin and Effient. IV heparin will be also initiated. On 1999 and answering the suspicion for a follow-up. The patient is still intubated on a mechanical ventilator. The patient remains on Impala for hemodynamic support. Clinically she is well sedated and she is calm and comfortable on 50 g of propofol. The patient is intubated on a mechanical ventilator and FiO2 has been drop down to 50% and PEEP is still at 7. I reviewed today's blood gas and the patient is adequate oxygenation with a pO2 of 184. The pH is at 7.47 with a pCO2 of 31. Based on this, drop the FiO2 down to 40% and drop the PEEP down to 5. Chest x-ray shows adequate expansion of both lungs. ET tube is in a good location. The patient has a triple lumen catheter in the left IJ and later on during the day there was some oozing at the catheter insertion site probably related to the use of IV heparin. Hemoglobin dropped down to 8.6 and was still monitoring the hemoglobin. Appropriate dressing has been applied to the left IJ puncture site. The patient is on a combination of pressors and the patient is currently on examination of norepinephrine infusion and epinephrine the dose being titrated to maintain a mean artery pressure above 65. Creatinine is up to 1.4. The patient is producing around 30-40 mL an hour of urine output. She is afebrile. Impala catheter is still in place and the patient is receiving adequate hemodynamic support. CVP earlier was 5 and the patient was given a bolus of 500 mL and the patient is also receiving maintenance fluids of 75 mL an hour. The patient remains on a combination of aspirin, Effient and the patient is also on IV hepar in. No fever. No seizure activity. The patient is still sensing painful stimulation she withdraws to painful stimulation all 4 extremities. Pupils are 4 mm in size and reactive to light. The white cell count is up to 22. Objective - Vital Signs Vital signs: Vital Signs Temp 99.8 F H 10/03/18 16:00 Pulse 105 H 10/03/18 17:30 Resp 16 10/03/18 17:30 BP 95/70 10/03/18 17:30 Pulse Ox 98 10/03/18 17:30 Intake & Output 10/02/18 10/03/18 10/03/18 18:59 06:59 18:59 Intake Total 761.586 7646.180 1681.128 Output Total 100 840 375 Balance 816.241 2244.180 1306.128 Weight 95.1 kg 95.1 kg Intake: IV 250 2300 1000 Sodium Chloride 0.9% 1, 200 1300 1000 000 ml @ 100 mls/hr IV . Q10H COUNT INCLUDES THE [facility] Rx#:[id number] Sodium Chloride 0.9% 1, 1000 000 ml @ 999 mls/hr IV . Q1H1M ONE Rx#:[id number] Intake, IV Titration 0.357 819.180 681.128 Amount EPINEPHrine 4 mg In 239.670 Dextrose 5% in Water 250 ml @ 0.033 MCG/KG/MIN 11. 058 mls/hr IV .[id number] COUNT INCLUDES THE [facility] Rx#:[id number] Heparin Sod,Pork in 0.45% 167.667 NaCl 25,000 unit In 0.45 % NaCl 1 250ml.bag @ 12 UNITS/KG/HR 10.723 mls/hr IV .[id number] [facility] Rx#: [id number] Insulin Regular 100 unit 47.890 22.759 In Sodium Chloride 0.9% 100 ml @ Per Protocol IV .Q0M COUNT INCLUDES THE [facility] Rx#:[id number] Norepinephrine 32 mg In 57.777 Sodium Chloride 0.9% 218 ml @ 0.17 MCG/KG/MIN 7. 578 mls/hr IV .Q24H COUNT INCLUDES THE [facility] Rx#:[id number] Norepinephrine 4 mg In 466.216 34.726 Sodium Chloride 0.9% 250 ml @ 0.11 MCG/KG/MIN 37. 45 mls/hr IV .Q6H47M [facility] Rx#:[id number] Propofol 1,000 mg In 0.357 305.074 158.529 Empty Bag 1 bag @ Titrate IV .Q0M COUNT INCLUDES THE [facility] Rx#: [id number] Output: Urine 100 610 375 Emesis 230 Other: Voiding Method Indwelling Catheter Indwelling Catheter Indwelling Catheter ABP, PAP, CO, CI - Last Documented Arterial Blood Pressure 97/63 - Exam Gen. appearance the patient is sedated, comfortable active distress. The patient is currently on propofol and withdrawing to painful stimulation. Head exam was generally normal. There was no scleral icterus or corneal arcus. Mucous membranes were moist. Neck was supple and without jugular venous distension, thyromegaly, or carotid bruits. Carotids were easily palpable bilaterally. There was no adenopathy. The patient has a left IJ triple-lumen catheter with minimal amount of blood oozing along the puncture site and appropriate dressing has been applied. No active bleeding for now. Lungs sounds are diminished bilaterally and there are some scattered rhonchi. There is some frothy secretions with orotracheal tube. Cardiac exam revealed the PMI to be normally situated and sized. The rhythm was regular and no extrasystoles were noted during several minutes of auscultation. The first and second heart sounds were normal and physiologic splitting of the second heart sound was noted. There were no murmurs, rubs, clicks, or gallops. Abdominal exam revealed normal bowel sounds. The abdomen was soft, non-tender, and without masses, organomegaly, or appreciable enlargement of the abdominal aorta. Extremities: The patient diminished yet palpable pulses all 4 extremities. No cyanosis or clubbing. Examination of the skin revealed no evidence of significant rashes, suspicious appearing nevi or other concerning lesions. Neurologically the patient withdraws to painful stimulation. Pupils are slightly elevated as the patient received atropine prior to her coming to the ICU. No facial asymmetry. No Babinski. No clonus. No seizure activity noted. - Labs CBC & Chem 7: 10/03/18 14:00 10/03/18 05:00 Labs: Abnormal Lab Results - Last 24 Hours (Table) 10/02/18 10/02/18 10/02/18 Range/Units 17:31 17:53 17:53 WBC 12.7 H (3.8-10.6) k/uL RBC (3.80-5.40) m/uL Hgb (11.4-16.0) gm/dL Hct (34.0-46.0) % Neutrophils # 10.0 H (1.3-7.7) k/uL APTT 69.7 H (22.0-30.0) sec ABG pH 7.29 L (7.35-7.45) ABG pCO2 30 L (35-45) mmHg ABG pO2 201 H (83-108) mmHg ABG HCO3 15 L (21-25) mmol/L ABG Total CO2 15 L (19-24) mmol/L ABG O2 Saturation 99.3 H (94-97) % Potassium (3.5-5.1) mmol/L Chloride (98-107) mmol/L Carbon Dioxide (22-30) mmol/L BUN (7-17) mg/dL Creatinine (0.52-1.04) mg/dL Glucose (74-99) mg/dL POC Glucose (mg/dL) (75-99) mg/dL Hemoglobin A1c (4.0-6.0) % Calcium (8.4-10.2) mg/dL Magnesium (1.6-2.3) mg/dL AST (14-36) U/L ALT (9-52) U/L Lactate Dehydrogenase (313-618) U/L Total Protein (6.3-8.2) g/dL Albumin (3.5-5.0) g/dL Urine Appearance (Clear) Ur Specific [place] (1.001-1.035) Urine Protein (Negative) Urine Glucose (UA) (Negative) Urine Blood (Negative) Urine RBC (0-5) /hpf Urine WBC (0-5) /hpf Urine Bacteria (None) /hpf Urine Mucus (None) /hpf 10/02/18 10/02/18 10/02/18 Range/Units 17:53 20:45 21:00 WBC (3.8-10.6) k/uL RBC (3.80-5.40) m/uL Hgb (11.4-16.0) gm/dL Hct (34.0-46.0) % Neutrophils # (1.3-7.7) k/uL APTT 44.3 H (22.0-30.0) sec ABG pH (7.35-7.45) ABG pCO2 (35-45) mmHg ABG pO2 (83-108) mmHg ABG HCO3 (21-25) mmol/L ABG Total CO2 (19-24) mmol/L ABG O2 Saturation (94-97) % Potassium (3.5-5.1) mmol/L Chloride (98-107) mmol/L Carbon Dioxide 16 L (22-30) mmol/L BUN 20 H (7-17) mg/dL Creatinine (0.52-1.04) mg/dL Glucose 406 H (74-99) mg/dL POC Glucose (mg/dL) 466 H (75-99) mg/dL Hemoglobin A1c (4.0-6.0) % Calcium (8.4-10.2) mg/dL Magnesium (1.6-2.3) mg/dL AST (14-36) U/L ALT (9-52) U/L Lactate Dehydrogenase (313-618) U/L Total Protein (6.3-8.2) g/dL Albumin (3.5-5.0) g/dL Urine Appearance (Clear) Ur Specific [place] (1.001-1.035) Urine Protein (Negative) Urine Glucose (UA) (Negative) Urine Blood (Negative) Urine RBC (0-5) /hpf Urine WBC (0-5) /hpf Urine Bacteria (None) /hpf Urine Mucus (None) /hpf 10/02/18 10/02/18 10/02/18 Range/Units 21:00 21:00 22:21 WBC (3.8-10.6) k/uL RBC (3.80-5.40) m/uL Hgb (11.4-16.0) gm/dL Hct (34.0-46.0) % Neutrophils # (1.3-7.7) k/uL APTT (22.0-30.0) sec ABG pH (7.35-7.45) ABG pCO2 (35-45) mmHg ABG pO2 (83-108) mmHg ABG HCO3 (21-25) mmol/L ABG Total CO2 (19-24) mmol/L ABG O2 Saturation (94-97) % Potassium (3.5-5.1) mmol/L Chloride (98-107) mmol/L Carbon Dioxide (22-30) mmol/L BUN (7-17) mg/dL Creatinine (0.52-1.04) mg/dL Glucose (74-99) mg/dL POC Glucose (mg/dL) 333 H (75-99) mg/dL Hemoglobin A1c (4.0-6.0) % Calcium (8.4-10.2) mg/dL Magnesium (1.6-2.3) mg/dL AST (14-36) U/L ALT (9-52) U/L Lactate Dehydrogenase 2992 H (313-618) U/L Total Protein (6.3-8.2) g/dL Albumin (3.5-5.0) g/dL Urine Appearance Cloudy H (Clear) Ur Specific [place] >1.050 H (1.001-1.035) Urine Protein 2+ H (Negative) Urine Glucose (UA) 3+ H (Negative) Urine Blood Large H (Negative) Urine RBC 122 H (0-5) /hpf Urine WBC 41 H (0-5) /hpf Urine Bacteria Rare H (None) /hpf Urine Mucus Rare H (None) /hpf 10/02/18 10/03/18 10/03/18 Range/Units 23:14 00:03 01:10 WBC (3.8-10.6) k/uL RBC (3.80-5.40) m/uL Hgb (11.4-16.0) gm/dL Hct (34.0-46.0) % Neutrophils # (1.3-7.7) k/uL APTT (22.0-30.0) sec ABG pH (7.35-7.45) ABG pCO2 (35-45) mmHg ABG pO2 (83-108) mmHg ABG HCO3 (21-25) mmol/L ABG Total CO2 (19-24) mmol/L ABG O2 Saturation (94-97) % Potassium (3.5-5.1) mmol/L Chloride (98-107) mmol/L Carbon Dioxide (22-30) mmol/L BUN (7-17) mg/dL Creatinine (0.52-1.04) mg/dL Glucose (74-99) mg/dL POC Glucose (mg/dL) 298 H 275 H 240 H (75-99) mg/dL Hemoglobin A1c (4.0-6.0) % Calcium (8.4-10.2) mg/dL Magnesium (1.6-2.3) mg/dL AST (14-36) U/L ALT (9-52) U/L Lactate Dehydrogenase (313-618) U/L Total Protein (6.3-8.2) g/dL Albumin (3.5-5.0) g/dL Urine Appearance (Clear) Ur Specific [place] (1.001-1.035) Urine Protein (Negative) Urine Glucose (UA) (Negative) Urine Blood (Negative) Urine RBC (0-5) /hpf Urine WBC (0-5) /hpf Urine Bacteria (None) /hpf Urine Mucus (None) /hpf 10/03/18 10/03/18 10/03/18 Range/Units 01:30 01:30 02:11 WBC (3.8-10.6) k/uL RBC (3.80-5.40) m/uL Hgb (11.4-16.0) gm/dL Hct (34.0-46.0) % Neutrophils # (1.3-7.7) k/uL APTT 55.5 H (22.0-30.0) sec ABG pH (7.35-7.45) ABG pCO2 (35-45) mmHg ABG pO2 (83-108) mmHg ABG HCO3 (21-25) mmol/L ABG Total CO2 (19-24) mmol/L ABG O2 Saturation (94-97) % Potassium (3.5-5.1) mmol/L Chloride (98-107) mmol/L Carbon Dioxide (22-30) mmol/L BUN (7-17) mg/dL Creatinine (0.52-1.04) mg/dL Glucose (74-99) mg/dL POC Glucose (mg/dL) 216 H (75-99) mg/dL Hemoglobin A1c (4.0-6.0) % Calcium (8.4-10.2) mg/dL Magnesium (1.6-2.3) mg/dL AST (14-36) U/L ALT (9-52) U/L Lactate Dehydrogenase 3773 H (313-618) U/L Total Protein (6.3-8.2) g/dL Albumin (3.5-5.0) g/dL Urine Appearance (Clear) Ur Specific [place] (1.001-1.035) Urine Protein (Negative) Urine Glucose (UA) (Negative) Urine Blood (Negative) Urine RBC (0-5) /hpf Urine WBC (0-5) /hpf Urine Bacteria (None) /hpf Urine Mucus (None) /hpf 10/03/18 10/03/18 10/03/18 Range/Units 03:12 04:04 05:00 WBC (3.8-10.6) k/uL RBC (3.80-5.40) m/uL Hgb (11.4-16.0) gm/dL Hct (34.0-46.0) % Neutrophils # (1.3-7.7) k/uL APTT (22.0-30.0) sec ABG pH (7.35-7.45) ABG pCO2 (35-45) mmHg ABG pO2 (83-108) mmHg ABG HCO3 (21-25) mmol/L ABG Total CO2 (19-24) mmol/L ABG O2 Saturation (94-97) % Potassium (3.5-5.1) mmol/L Chloride (98-107) mmol/L Carbon Dioxide (22-30) mmol/L BUN (7-17) mg/dL Creatinine (0.52-1.04) mg/dL Glucose (74-99) mg/dL POC Glucose (mg/dL) 203 H 197 H (75-99) mg/dL Hemoglobin A1c 9.7 H (4.0-6.0) % Calcium (8.4-10.2) mg/dL Magnesium (1.6-2.3) mg/dL AST (14-36) U/L ALT (9-52) U/L Lactate Dehydrogenase (313-618) U/L Total Protein (6.3-8.2) g/dL Albumin (3.5-5.0) g/dL Urine Appearance (Clear) Ur Specific [place] (1.001-1.035) Urine Protein (Negative) Urine Glucose (UA) (Negative) Urine Blood (Negative) Urine RBC (0-5) /hpf Urine WBC (0-5) /hpf Urine Bacteria (None) /hpf Urine Mucus (None) /hpf 10/03/18 10/03/18 10/03/18 Range/Units 05:00 05:00 05:00 WBC 22.5 H (3.8-10.6) k/uL RBC 3.64 L (3.80-5.40) m/uL Hgb 10.0 L D (11.4-16.0) gm/dL Hct 29.5 L (34.0-46.0) % Neutrophils # 20.5 H (1.3-7.7) k/uL APTT 69.4 H (22.0-30.0) sec ABG pH (7.35-7.45) ABG pCO2 (35-45) mmHg ABG pO2 (83-108) mmHg ABG HCO3 (21-25) mmol/L ABG Total CO2 (19-24) mmol/L ABG O2 Saturation (94-97) % Potassium 3.4 L (3.5-5.1) mmol/L Chloride 110 H (98-107) mmol/L Carbon Dioxide (22-30) mmol/L BUN 32 H (7-17) mg/dL Creatinine 1.46 H (0.52-1.04) mg/dL Glucose 158 H (74-99) mg/dL POC Glucose (mg/dL) (75-99) mg/dL Hemoglobin A1c (4.0-6.0) % Calcium 7.7 L (8.4-10.2) mg/dL Magnesium 1.5 L (1.6-2.3) mg/dL AST 467 H (14-36) U/L ALT 118 H (9-52) U/L Lactate Dehydrogenase 4034 H (313-618) U/L Total Protein 5.4 L (6.3-8.2) g/dL Albumin 2.6 L (3.5-5.0) g/dL Urine Appearance (Clear) Ur Specific [place] (1.001-1.035) Urine Protein (Negative) Urine Glucose (UA) (Negative) Urine Blood (Negative) Urine RBC (0-5) /hpf Urine WBC (0-5) /hpf Urine Bacteria (None) /hpf Urine Mucus (None) /hpf 10/03/18 10/03/18 10/03/18 Range/Units 05:04 05:30 06:10 WBC (3.8-10.6) k/uL RBC (3.80-5.40) m/uL Hgb (11.4-16.0) gm/dL Hct (34.0-46.0) % Neutrophils # (1.3-7.7) k/uL APTT (22.0-30.0) sec ABG pH 7.47 H (7.35-7.45) ABG pCO2 31 L (35-45) mmHg ABG pO2 184 H (83-108) mmHg ABG HCO3 (21-25) mmol/L ABG Total CO2 (19-24) mmol/L ABG O2 Saturation 99.6 H (94-97) % Potassium (3.5-5.1) mmol/L Chloride (98-107) mmol/L Carbon Dioxide (22-30) mmol/L BUN (7-17) mg/dL Creatinine (0.52-1.04) mg/dL Glucose (74-99) mg/dL POC Glucose (mg/dL) 180 H 163 H (75-99) mg/dL Hemoglobin A1c (4.0-6.0) % Calcium (8.4-10.2) mg/dL Magnesium (1.6-2.3) mg/dL AST (14-36) U/L ALT (9-52) U/L Lactate Dehydrogenase (313-618) U/L Total Protein (6.3-8.2) g/dL Albumin (3.5-5.0) g/dL Urine Appearance (Clear) Ur Specific [place] (1.001-1.035) Urine Protein (Negative) Urine Glucose (UA) (Negative) Urine Blood (Negative) Urine RBC (0-5) /hpf Urine WBC (0-5) /hpf Urine Bacteria (None) /hpf Urine Mucus (None) /hpf 10/03/18 10/03/18 10/03/18 Range/Units 06:54 09:19 10:58 WBC (3.8-10.6) k/uL RBC (3.80-5.40) m/uL Hgb (11.4-16.0) gm/dL Hct (34.0-46.0) % Neutrophils # (1.3-7.7) k/uL APTT (22.0-30.0) sec ABG pH (7.35-7.45) ABG pCO2 (35-45) mmHg ABG pO2 (83-108) mmHg ABG HCO3 (21-25) mmol/L ABG Total CO2 (19-24) mmol/L ABG O2 Saturation (94-97) % Potassium (3.5-5.1) mmol/L Chloride (98-107) mmol/L Carbon Dioxide (22-30) mmol/L BUN (7-17) mg/dL Creatinine (0.52-1.04) mg/dL Glucose (74-99) mg/dL POC Glucose (mg/dL) 147 H 167 H 195 H (75-99) mg/dL Hemoglobin A1c (4.0-6.0) % Calcium (8.4-10.2) mg/dL Magnesium (1.6-2.3) mg/dL AST (14-36) U/L ALT (9-52) U/L Lactate Dehydrogenase (313-618) U/L Total Protein (6.3-8.2) g/dL Albumin (3.5-5.0) g/dL Urine Appearance (Clear) Ur Specific [place] (1.001-1.035) Urine Protein (Negative) Urine Glucose (UA) (Negative) Urine Blood (Negative) Urine RBC (0-5) /hpf Urine WBC (0-5) /hpf Urine Bacteria (None) /hpf Urine Mucus (None) /hpf 10/03/18 10/03/18 10/03/18 Range/Units 11:00 11:00 11:57 WBC (3.8-10.6) k/uL RBC (3.80-5.40) m/uL Hgb (11.4-16.0) gm/dL Hct (34.0-46.0) % Neutrophils # (1.3-7.7) k/uL APTT 87.2 H (22.0-30.0) sec ABG pH (7.35-7.45) ABG pCO2 (35-45) mmHg ABG pO2 (83-108) mmHg ABG HCO3 (21-25) mmol/L ABG Total CO2 (19-24) mmol/L ABG O2 Saturation (94-97) % Potassium (3.5-5.1) mmol/L Chloride (98-107) mmol/L Carbon Dioxide (22-30) mmol/L BUN (7-17) mg/dL Creatinine (0.52-1.04) mg/dL Glucose (74-99) mg/dL POC Glucose (mg/dL) 164 H (75-99) mg/dL Hemoglobin A1c (4.0-6.0) % Calcium (8.4-10.2) mg/dL Magnesium (1.6-2.3) mg/dL AST (14-36) U/L ALT (9-52) U/L Lactate Dehydrogenase 3923 H (313-618) U/L Total Protein (6.3-8.2) g/dL Albumin (3.5-5.0) g/dL Urine Appearance (Clear) Ur Specific [place] (1.001-1.035) Urine Protein (Negative) Urine Glucose (UA) (Negative) Urine Blood (Negative) Urine RBC (0-5) /hpf Urine WBC (0-5) /hpf Urine Bacteria (None) /hpf Urine Mucus (None) /hpf 10/03/18 10/03/18 10/03/18 Range/Units 13:04 14:00 14:19 WBC 22.7 H (3.8-10.6) k/uL RBC 3.09 L (3.80-5.40) m/uL Hgb 8.6 L (11.4-16.0) gm/dL Hct 25.3 L (34.0-46.0) % Neutrophils # (1.3-7.7) k/uL APTT (22.0-30.0) sec ABG pH (7.35-7.45) ABG pCO2 (35-45) mmHg ABG pO2 (83-108) mmHg ABG HCO3 (21-25) mmol/L ABG Total CO2 (19-24) mmol/L ABG O2 Saturation (94-97) % Potassium (3.5-5.1) mmol/L Chloride (98-107) mmol/L Carbon Dioxide (22-30) mmol/L BUN (7-17) mg/dL Creatinine (0.52-1.04) mg/dL Glucose (74-99) mg/dL POC Glucose (mg/dL) 163 H 150 H (75-99) mg/dL Hemoglobin A1c (4.0-6.0) % Calcium (8.4-10.2) mg/dL Magnesium (1.6-2.3) mg/dL AST (14-36) U/L ALT (9-52) U/L Lactate Dehydrogenase (313-618) U/L Total Protein (6.3-8.2) g/dL Albumin (3.5-5.0) g/dL Urine Appearance (Clear) Ur Specific [place] (1.001-1.035) Urine Protein (Negative) Urine Glucose (UA) (Negative) Urine Blood (Negative) Urine RBC (0-5) /hpf Urine WBC (0-5) /hpf Urine Bacteria (None) /hpf Urine Mucus (None) /hpf 10/03/18 Range/Units 16:34 WBC (3.8-10.6) k/uL RBC (3.80-5.40) m/uL Hgb (11.4-16.0) gm/dL Hct (34.0-46.0) % Neutrophils # (1.3-7.7) k/uL APTT (22.0-30.0) sec ABG pH (7.35-7.45) ABG pCO2 (35-45) mmHg ABG pO2 (83-108) mmHg ABG HCO3 (21-25) mmol/L ABG Total CO2 (19-24) mmol/L ABG O2 Saturation (94-97) % Potassium (3.5-5.1) mmol/L Chloride (98-107) mmol/L Carbon Dioxide (22-30) mmol/L BUN (7-17) mg/dL Creatinine (0.52-1.04) mg/dL Glucose (74-99) mg/dL POC Glucose (mg/dL) 155 H (75-99) mg/dL Hemoglobin A1c (4.0-6.0) % Calcium (8.4-10.2) mg/dL Magnesium (1.6-2.3) mg/dL AST (14-36) U/L ALT (9-52) U/L Lactate Dehydrogenase (313-618) U/L Total Protein (6.3-8.2) g/dL Albumin (3.5-5.0) g/dL Urine Appearance (Clear) Ur Specific [place] (1.001-1.035) Urine Protein (Negative) Urine Glucose (UA) (Negative) Urine Blood (Negative) Urine RBC (0-5) /hpf Urine WBC (0-5) /hpf Urine Bacteria (None) /hpf Urine Mucus (None) /hpf Microbiology - Last 24 Hours (Table) 10/02/18 21:00 Urine Culture - Preliminary Urine,Voided Assessment and Plan Plan: 1 acute cardiac arrest during cardiac catheterization and stenting of the LAD. The patient had on and off hypotension cardiac arrest including V. fib and PEA during the resuscitation efforts. Note that the patient was obtaining blood pressure and pulse in between these episodes of cardiac arrest in the [place] resuscitation process was around 60 minutes at least. Ultimately the patient had a stable pressure. Impala was inserted for hemodynamic suppor. The patient was started on a combination of epinephrine and norepinephrine and the patient got transferred to the intensive care unit. Currently the patient is on pressors and maintaining a appropriate blood pressure with adequate pulses in all 4 extremities On today's evaluation of 10/03/2018, echocardiogram revealed an ejection fraction of 30-35%. The patient remains on a combination of epinephrine norepinephrine. The patient is producing adequate amount of urine output. Still on Impala for hemodynamic support. Cardiac rhythm remains sinus and there has been no further episodes of any cardiac arrest for now. The patient is on a combination of aspirin and Effient and IV heparin and the patient is post stenting of the LAD. Hemodynamically improved and the patient remains intubated on mechanical ventilator. 2 coronary artery disease with insertion of a stent in the LAD for a mid LAD lesion. Please refer to the cardiac catheterization report. Currently on a combination of aspirin and Effient. 3 acute hypoxic respiratory failure secondary to above, currently intubated on a mechanical ventilator 4 pulmonary edema 5 hypotension secondary to above, currently on pressors and Impala for hemofynamic support 6 diabetes mellitus 7 hyperlipidemia 8 diabetic peripheral neuropathy 9 acute anemia, consider blood loss anemia versus dilutional and the patient is being monitored. There is no external bleeding for now 10 acute leukocytosis 11 acute kidney injury with a creatinine of 1.4, consider ATN secondary to hypotension/shock/cardiac arrest. Consider contrast nephropathy Plan Continue current vent support. Drop the PEEP down to 5. Drop the FiO2 down to 40%. The patient remains on a mechanical ventilator. Chest x-ray showed no evidence of any pneumonia or pulmonary edema. The patient's is being supported hemodynamically with combination of pressors and the patient is on a combination of epinephrine norepinephrine and and Impala devices being utilized. Epinephrine is running at 3 mcg/m and norepinephrine is running at point to 2 g per KG per minute for now. Urine output is adequate. The patient is afebrile. We'll continue Impala. We'll monitor CVP. A bolus of fluid was given and the patient's most recent CVP is up to 8. The maintenance IV fluids for now is at 100 mL an hour normal saline. Feeding with vital high protein will be initiated at the lower rate. Hold the heparin for a few hours still the puncture sites bleeds in the left IJ with improved. No weaning / sedation holiday for now. The patient remains critically ill. We'll continue to follow. Case was discussed with cardiology. This evaluation was done and more than 30 minutes Time with Patient: Greater than 30
[2018-10-03 18:04] LABS: Glucose,Whole Blood 151 mg/dL (75-99)
[2018-10-03] MEDS: INSULIN REGULAR 100 UNIT in SODIUM CHLORIDE 0.9% 100 ML IV SCH (18:22)
[2018-10-03 19:22] LABS: HCT 23.9 % (34.0-46.0); HGB 7.7 gm/dL (11.4-16.0); MCHC 32.3 g/dL (31.0-37.0); MCV 83.7 fL (80.0-100.0); Mean Platelet Volume 8.9; Platelet Count 205 k/uL (150-450); RBC 2.86 m/uL (3.80-5.40); RDW 15.2 % (11.5-15.5); WBC 21.1 k/uL (3.8-10.6)
[2018-10-03 19:24] LABS: Glucose,Whole Blood 172 mg/dL (75-99)
[2018-10-03] MEDS ORDERED: VANCOMYCIN IV PER PHARMACY 1 EACH MISC MISCELLANE PRN (19:29)
[2018-10-03 19:31] LABS: Potassium 4.5 mmol/L (3.5-5.1)
[2018-10-03 19:37] LABS: Partial Thromboplastin Time 46.2 sec (22.0-30.0)
[2018-10-03] MEDS ORDERED: VANCOMYCIN 1,500 MG in SODIUM CHLORIDE 0.9% 250 ML IVPB SCH (20:00)
[2018-10-03 20:06] LABS: Glucose,Whole Blood 166 mg/dL (75-99)
[2018-10-03 21:23] LABS: Glucose,Whole Blood 213 mg/dL (75-99)
[2018-10-03 22:27] LABS: Glucose,Whole Blood 174 mg/dL (75-99)
[2018-10-03 23:18] LABS: Glucose,Whole Blood 166 mg/dL (75-99)
[2018-10-03 23:33] LABS: HCT 26.4 % (34.0-46.0); HGB 8.8 gm/dL (11.4-16.0); MCH 28.2 pg (25.0-35.0); MCHC 33.2 g/dL (31.0-37.0); Mean Platelet Volume 8.4; Platelet Count 162 k/uL (150-450); RBC 3.11 m/uL (3.80-5.40); RDW 14.7 % (11.5-15.5); WBC 18.8 k/uL (3.8-10.6)
[2018-10-04 00:09] LABS: Glucose,Whole Blood 175 mg/dL (75-99)
[2018-10-04] MEDS: HYDROmorphone 1 MG/ML 1 ML SYRINGE IVP PRN ×4 (01:00→18:59)
[2018-10-04 01:55] LABS: Glucose,Whole Blood 158 mg/dL (75-99)
[2018-10-04] MEDS: HEPARIN SODIUM,PORCINE 12,500 UNIT in DEXTROSE 5% IN WATER 500 ML IV SCH ×2 (02:09)
[2018-10-04 03:10] LABS: Glucose,Whole Blood 129 mg/dL (75-99)
[2018-10-04] MEDS: PROPOFOL 1,000 MG in EMPTY BAG 1 BAG IV SCH ×5 (03:49→19:28)
[2018-10-04 04:13] LABS: Glucose,Whole Blood 132 mg/dL (75-99)
[2018-10-04 04:40] LABS: ABG Base Excess -2.1 mmol/L; ABG HCO3 23 mmol/L (21-25); ABG Oxygen Saturation 98.6 % (94-97); ABG PCO2 38 mmHg (35-45); ABG PH 7.39 (7.35-7.45); ABG PO2 117 mmHg (83-108); ABG TCO2 24 mmol/L (19-24)
[2018-10-04 05:12] LABS: INR 0.9 (<1.2); Partial Thromboplastin Time 28.7 sec (22.0-30.0); Prothrombin Time 9.8 sec (9.0-12.0)
[2018-10-04 05:13] LABS: Magnesium 1.9 mg/dL (1.6-2.3); Potassium 4.2 mmol/L (3.5-5.1)
[2018-10-04 05:15] LABS: Glucose,Whole Blood 137 mg/dL (75-99)
[2018-10-04] MEDS: HEPARIN SOD,PORK IN 0.45% NACL 25,000 UNIT in 0.45% NACL 1 250ML.BAG IV SCH ×2 (05:45→19:53)
[2018-10-04 05:48] LABS: HCT 23.1 % (34.0-46.0); HGB 7.6 gm/dL (11.4-16.0); MCH 27.9 pg (25.0-35.0); MCHC 32.6 g/dL (31.0-37.0); MCV 85.6 fL (80.0-100.0); Mean Platelet Volume 7.8; Platelet Count 143 k/uL (150-450); RDW 14.8 % (11.5-15.5); WBC 16.3 k/uL (3.8-10.6)
[2018-10-04 06:11] LABS: Glucose,Whole Blood 131 mg/dL (75-99)
[2018-10-04 07:12] LABS: Glucose,Whole Blood 130 mg/dL (75-99)
[2018-10-04] MEDS: IPRATROPIUM-ALBUTEROL 3 ML NEB INHALATION SCH ×4 (07:24→19:33)
--- NOTE | 2018-10-04 07:29 | P.PN ---
Subjective Progress Note Date: 10/04/18 Principal diagnosis: Coronary artery disease/cardiogenic shock This is a 63-year-old female patient who was admitted to the hospital yesterday and underwent a heart catheterization on successful stenting of the mid LAD with the procedure was complicated by cardiogenic shock of unknown etiology. An Impella was placed and the patient was intubated and was admitted to the intens [facility] care unit. On follow-up with the patient today, 10/04/2018, the patient still intubated on ventilator. She still required mechanical support. She still also requires small dose of norepinephrine as well as epinephrine. The creatinine is slightly worse. The hemoglobin is also slightly worse. She has been losing from around the IJ. She is coming down significantly with the vasopressors. The plan is to take the Impella out later on today and to manual pressure on the right groin. We will stop the heparin 2 hours before that. We will continue dual antiplatelet therapy, continue monitor the hemoglobin, and continue monitor the kidney function. Objective - Vital Signs Vital signs: Vital Signs Temp 99.7 F H 10/04/18 07:00 Pulse 107 H 10/04/18 07:00 Resp 18 10/04/18 07:00 BP 105/71 10/04/18 07:00 Pulse Ox 97 10/04/18 07:00 Intake & Output 10/03/18 10/04/18 10/04/18 18:59 06:59 18:59 Intake Total 5282.999 9397.604 106 Output Total 410 563 55 Balance 1534.553 6929.604 51 Weight 95.1 kg Intake: IV 1160 1522 106 Normal Saline @ 100mls/hr 100 Sodium Chloride 0.9% 1, 1100 1200 000 ml @ 100 mls/hr IV . Q10H [facility] Rx#:[id number] Vancomycin 1,500 mg In 250 Sodium Chloride 0.9% 250 ml @ 125 mls/hr IVPB Q24H [facility] Rx#:[id number] pressure bags 60 72 6 Intake, IV Titration 687.163 540.604 Amount EPINEPHrine 4 mg In 239.670 67.941 Dextrose 5% in Water 250 ml @ 0.033 MCG/KG/MIN 11. 058 mls/hr IV .[id number] [facility] Rx#:[id number] Heparin Sod,Pork in 0.45% 167.667 46.716 NaCl 25,000 unit In 0.45 % NaCl 1 250ml.bag @ 12 UNITS/KG/HR 10.723 mls/hr IV .[id number] [facility] Rx#: [id number] Insulin Regular 100 unit 28.794 17.465 In Sodium Chloride 0.9% 100 ml @ Per Protocol IV .Q0M [facility] Rx#:[id number] Norepinephrine 32 mg In 57.777 127.614 Sodium Chloride 0.9% 218 ml @ 0.17 MCG/KG/MIN 7. 578 mls/hr IV .Q24H [facility] Rx#:[id number] Norepinephrine 4 mg In 34.726 Sodium Chloride 0.9% 250 ml @ 0.11 MCG/KG/MIN 37. 45 mls/hr IV .[id number] [facility] Rx#:[id number] Propofol 1,000 mg In 158.529 280.868 Empty Bag 1 bag @ Titrate IV .Q0M [facility] Rx#: [id number] Tube Feeding 300 Blood Product 620 Rc As-3 Unit 310 [id number] Other 90 Output: Urine 410 563 55 Other: Voiding Method Indwelling Catheter Indwelling Catheter ABP, PAP, CO, CI - Last Documented Arterial Blood Pressure 109/60 - Constitutional General appearance: Present: no acute distress - Respiratory Respiratory: bilateral: diminished - Cardiovascular Rhythm: regular Heart sounds: normal: S1, S2 - Labs CBC & Chem 7: 10/04/18 04:52 10/04/18 04:52 Labs: Abnormal Lab Results - Last 24 Hours (Table) 10/03/18 10/03/18 10/03/18 Range/Units 05:00 05:00 09:19 WBC (3.8-10.6) k/uL RBC (3.80-5.40) m/uL Hgb (11.4-16.0) gm/dL Hct (34.0-46.0) % Plt Count (150-450) k/uL APTT (22.0-30.0) sec ABG pO2 (83-108) mmHg ABG O2 Saturation (94-97) % Chloride (98-107) mmol/L BUN (7-17) mg/dL Creatinine (0.52-1.04) mg/dL Glucose (74-99) mg/dL POC Glucose (mg/dL) 167 H (75-99) mg/dL Hemoglobin A1c 9.7 H (4.0-6.0) % Calcium (8.4-10.2) mg/dL Lactate Dehydrogenase 4034 H (313-618) U/L Crossmatch 10/03/18 10/03/18 10/03/18 Range/Units 10:58 11:00 11:00 WBC (3.8-10.6) k/uL RBC (3.80-5.40) m/uL Hgb (11.4-16.0) gm/dL Hct (34.0-46.0) % Plt Count (150-450) k/uL APTT 87.2 H (22.0-30.0) sec ABG pO2 (83-108) mmHg ABG O2 Saturation (94-97) % Chloride (98-107) mmol/L BUN (7-17) mg/dL Creatinine (0.52-1.04) mg/dL Glucose (74-99) mg/dL POC Glucose (mg/dL) 195 H (75-99) mg/dL Hemoglobin A1c (4.0-6.0) % Calcium (8.4-10.2) mg/dL Lactate Dehydrogenase 3923 H (313-618) U/L Crossmatch 10/03/18 10/03/18 10/03/18 Range/Units 11:57 13:04 14:00 WBC 22.7 H (3.8-10.6) k/uL RBC 3.09 L (3.80-5.40) m/uL Hgb 8.6 L (11.4-16.0) gm/dL Hct 25.3 L (34.0-46.0) % Plt Count (150-450) k/uL APTT (22.0-30.0) sec ABG pO2 (83-108) mmHg ABG O2 Saturation (94-97) % Chloride (98-107) mmol/L BUN (7-17) mg/dL Creatinine (0.52-1.04) mg/dL Glucose (74-99) mg/dL POC Glucose (mg/dL) 164 H 163 H (75-99) mg/dL Hemoglobin A1c (4.0-6.0) % Calcium (8.4-10.2) mg/dL Lactate Dehydrogenase (313-618) U/L Crossmatch 10/03/18 10/03/18 10/03/18 Range/Units 14:19 16:34 17:51 WBC (3.8-10.6) k/uL RBC (3.80-5.40) m/uL Hgb (11.4-16.0) gm/dL Hct (34.0-46.0) % Plt Count (150-450) k/uL APTT (22.0-30.0) sec ABG pO2 (83-108) mmHg ABG O2 Saturation (94-97) % Chloride (98-107) mmol/L BUN (7-17) mg/dL Creatinine (0.52-1.04) mg/dL Glucose (74-99) mg/dL POC Glucose (mg/dL) 150 H 155 H 151 H (75-99) mg/dL Hemoglobin A1c (4.0-6.0) % Calcium (8.4-10.2) mg/dL Lactate Dehydrogenase (313-618) U/L Crossmatch 10/03/18 10/03/18 10/03/18 Range/Units 19:08 19:08 19:08 WBC 21.1 H (3.8-10.6) k/uL RBC 2.86 L (3.80-5.40) m/uL Hgb 7.7 L (11.4-16.0) gm/dL Hct 23.9 L (34.0-46.0) % Plt Count (150-450) k/uL APTT 46.2 H (22.0-30.0) sec ABG pO2 (83-108) mmHg ABG O2 Saturation (94-97) % Chloride (98-107) mmol/L BUN (7-17) mg/dL Creatinine (0.52-1.04) mg/dL Glucose (74-99) mg/dL POC Glucose (mg/dL) (75-99) mg/dL Hemoglobin A1c (4.0-6.0) % Calcium (8.4-10.2) mg/dL Lactate Dehydrogenase 4022 H (313-618) U/L Crossmatch 10/03/18 10/03/18 10/03/18 Range/Units 19:12 19:40 19:54 WBC (3.8-10.6) k/uL RBC (3.80-5.40) m/uL Hgb (11.4-16.0) gm/dL Hct (34.0-46.0) % Plt Count (150-450) k/uL APTT (22.0-30.0) sec ABG pO2 (83-108) mmHg ABG O2 Saturation (94-97) % Chloride (98-107) mmol/L BUN (7-17) mg/dL Creatinine (0.52-1.04) mg/dL Glucose (74-99) mg/dL POC Glucose (mg/dL) 172 H 166 H (75-99) mg/dL Hemoglobin A1c (4.0-6.0) % Calcium (8.4-10.2) mg/dL Lactate Dehydrogenase (313-618) U/L Crossmatch See Detail 10/03/18 10/03/18 10/03/18 Range/Units 21:12 22:15 23:07 WBC (3.8-10.6) k/uL RBC (3.80-5.40) m/uL Hgb (11.4-16.0) gm/dL Hct (34.0-46.0) % Plt Count (150-450) k/uL APTT (22.0-30.0) sec ABG pO2 (83-108) mmHg ABG O2 Saturation (94-97) % Chloride (98-107) mmol/L BUN (7-17) mg/dL Creatinine (0.52-1.04) mg/dL Glucose (74-99) mg/dL POC Glucose (mg/dL) 213 H 174 H 166 H (75-99) mg/dL Hemoglobin A1c (4.0-6.0) % Calcium (8.4-10.2) mg/dL Lactate Dehydrogenase (313-618) U/L Crossmatch 10/03/18 10/03/18 10/04/18 Range/Units 23:20 23:57 01:43 WBC 18.8 H (3.8-10.6) k/uL RBC 3.11 L (3.80-5.40) m/uL Hgb 8.8 L (11.4-16.0) gm/dL Hct 26.4 L (34.0-46.0) % Plt Count (150-450) k/uL APTT (22.0-30.0) sec ABG pO2 (83-108) mmHg ABG O2 Saturation (94-97) % Chloride (98-107) mmol/L BUN (7-17) mg/dL Creatinine (0.52-1.04) mg/dL Glucose (74-99) mg/dL POC Glucose (mg/dL) 175 H 158 H (75-99) mg/dL Hemoglobin A1c (4.0-6.0) % Calcium (8.4-10.2) mg/dL Lactate Dehydrogenase (313-618) U/L Crossmatch 10/04/18 10/04/18 10/04/18 Range/Units 01:44 02:58 04:01 WBC (3.8-10.6) k/uL RBC (3.80-5.40) m/uL Hgb (11.4-16.0) gm/dL Hct (34.0-46.0) % Plt Count (150-450) k/uL APTT (22.0-30.0) sec ABG pO2 (83-108) mmHg ABG O2 Saturation (94-97) % Chloride (98-107) mmol/L BUN (7-17) mg/dL Creatinine (0.52-1.04) mg/dL Glucose (74-99) mg/dL POC Glucose (mg/dL) 129 H 132 H (75-99) mg/dL Hemoglobin A1c (4.0-6.0) % Calcium (8.4-10.2) mg/dL Lactate Dehydrogenase 3192 H (313-618) U/L Crossmatch 10/04/18 10/04/18 10/04/18 Range/Units 04:35 04:51 04:52 WBC (3.8-10.6) k/uL RBC (3.80-5.40) m/uL Hgb (11.4-16.0) gm/dL Hct (34.0-46.0) % Plt Count (150-450) k/uL APTT (22.0-30.0) sec ABG pO2 117 H (83-108) mmHg ABG O2 Saturation 98.6 H (94-97) % Chloride 114 H (98-107) mmol/L BUN 48 H (7-17) mg/dL Creatinine 1.89 H (0.52-1.04) mg/dL Glucose 114 H (74-99) mg/dL POC Glucose (mg/dL) 137 H (75-99) mg/dL Hemoglobin A1c (4.0-6.0) % Calcium 7.0 L (8.4-10.2) mg/dL Lactate Dehydrogenase (313-618) U/L Crossmatch 10/04/18 10/04/18 10/04/18 Range/Units 04:52 06:00 07:00 WBC 16.3 H (3.8-10.6) k/uL RBC 2.70 L (3.80-5.40) m/uL Hgb 7.6 L (11.4-16.0) gm/dL Hct 23.1 L (34.0-46.0) % Plt Count 143 L (150-450) k/uL APTT (22.0-30.0) sec ABG pO2 (83-108) mmHg ABG O2 Saturation (94-97) % Chloride (98-107) mmol/L BUN (7-17) mg/dL Creatinine (0.52-1.04) mg/dL Glucose (74-99) mg/dL POC Glucose (mg/dL) 131 H 130 H (75-99) mg/dL Hemoglobin A1c (4.0-6.0) % Calcium (8.4-10.2) mg/dL Lactate Dehydrogenase (313-618) U/L Crossmatch Microbiology - Last 24 Hours (Table) 10/02/18 21:00 Urine Culture - Final Urine,Voided Assessment and Plan Assessment: Assessment #1 coronary artery disease and status post PCI of the LAD #2 cardiogenic shock requiring mechanical support #3 acute respiratory failure #4 acute renal failure #5 anemia Plan #1 continue dual antiplatelet therapy #2 try to wean the Impella I subsequently remove it #3 try to wean the patient from norepinephrine and epinephrine #4 continue monitor the hemoglobin #5 continue monitor the kidney function
--- NOTE | 2018-10-04 08:11 | XR ---
EXAMINATION TYPE: XR chest 1V portable DATE OF EXAM: 10/04/2018 COMPARISON: Prior chest x-ray 10/03/2018 HISTORY: Intubated TECHNIQUE: Single frontal view of the chest is obtained. FINDINGS: Endotracheal tube, gastric tube, left jugular central venous catheter, intracardiac ventri cular assist device are stable. No pneumothorax. Heart size may be accentuated by rotation. Interstit ium is increased. There may be some improvement in aeration in the perihilar location on the right. R etrocardiac density persists, the left hemidiaphragm is obscured. Aorta is dense. IMPRESSION: Findings are similar to prior exam. Correlate for congestive heart failure.
[2018-10-04] MEDS ORDERED: VANCOMYCIN IV PER PHARMACY 1 EACH MISC MISCELLANE PRN (08:38)
[2018-10-04 08:50] LABS: Glucose,Whole Blood 114 mg/dL (75-99)
[2018-10-04] MEDS: ASPIRIN 81 MG PO SCH (08:50)
[2018-10-04] MEDS: CHLORHEXIDINE GLUCONATE 15 ML CUP MUCOUS MEM SCH ×2 (08:50→20:37)
[2018-10-04] MEDS: PRASUGREL 10 MG TAB PO SCH (08:50)
[2018-10-04] MEDS: NOREPINEPHRINE 32 MG in SODIUM CHLORIDE 0.9% 218 ML IV SCH (09:02)
[2018-10-04 10:21] LABS: Partial Thromboplastin Time 35.7 sec (22.0-30.0)
[2018-10-04 10:32] LABS: Glucose,Whole Blood 166 mg/dL (75-99)
[2018-10-04 11:27] LABS: Glucose,Whole Blood 172 mg/dL (75-99)
[2018-10-04] MEDS ORDERED: MIDAZOLAM (PF) 2 MG/2 ML VIAL IVP ONE (12:45)
[2018-10-04] MEDS: SODIUM CHLORIDE 0.9% 1,000 ML IV SCH (14:18)
[2018-10-04 14:20] LABS: Glucose,Whole Blood 183 mg/dL (75-99)
--- NOTE | 2018-10-04 14:54 | PCN ---
PROCEDURE NOTE Mrs. Fortune is 63-year-old female who has underwent angioplasty of her LAD recently and it was complicated by cardiogenic shock requiring Impella CP placement. She was brought to the cytogenetics laboratory manager today to remove the Impella. PROCEDURE DESCRIPTION: Patient was brought to the cytogenetics laboratory manager. She was draped and prepped it conventional fashion and the Impella catheter was removed, subsequently the 14 [place] sheath was punctured with a needle. A wire was introduced into the sheath and the sheath was removed subsequently over the wire. Two Perclose devices were inserted, secured in place. Following up after removing the Perclose, hemostasis was performed by Dr. Rodriguez by deploying the Perclose on both devices with hemostasis and no complication. At the end the procedure, there was no hematoma and there was no active bleeding. The patient was returned to the ICU in stable condition. Hemodynamically she was stable. She remained intubated. MMODL / IJN: [id number] /
[2018-10-04 15:59] LABS: Glucose,Whole Blood 150 mg/dL (75-99)
--- NOTE | 2018-10-04 17:19 | P.PN ---
Subjective Progress Note Date: 10/04/18 A 63-year-old female patient with known history of coronary artery disease, hypertension and diabetes mellitus and hyperlipidemia and peripheral neuropathy. She is an ex-smoker. The patient came in for elective cardiac catheterization during which the patient was found to have a mid LAD lesion. During the procedure, the patient went into cardiac arrest. As the angioplasty was being performed, the patient developed profound hypotension and went into a PEA. 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 During the process, the LAD stent was the fluid, resuscitation was done during which the patient received CPR and defibrillation. Pressors were initiated. Patient was intubated. Please refer to the cardiology note regarding the details of the cardiac arrest and resuscitation procedure. Note that in and pallor was also inserted to augment her cardiac output and hemodynamics. I saw the patient immediately after she arrived to the intensive care unit. She was withdrawing to painful stimulation. I had to put that on propofol for sedation and currently propofol is running. 40 g per KG per minute. The patient was intubated on a mechanical ventilator. I noted the blood gases and the patient had a component of respiratory metabolic acidosis. I made the appropriate vent changes and the patient is currently on a VC plus mode with a tidal volume of 450, respiratory rate of 26, FiO2 of 100% with a PEEP of 7. The most recent blood gas showed a pH of 7.29 with a pCO2 of 30 and pO2 of 21 and this was on the fentanyl 100%. FiO2 will be gradually weaned off. Chest x-ray was done and ET tube was in the proximal right mainstem. The tube was withdrawn by around 2 cm. Chest x-ray was consistent with pulmonary edema and the patient was having some frothy rest or secretions in the orotracheal tube. I was informed by cardiology that the patient did not have any coronary dissection or perforation. There was no evidence of a tamponade. No valvular disruption. Impala was in place in the right femoral artery. The patient also had a sheath in the right femoral vein. She has adequate pulses in all 4 extremities. The patient was maintained on a combination of factors including 3 g of nore pinephrine infusion and 10 g of levo fed infusion. Urine output has been no other of 30 mL an hour. The patient has been afebrile. She is on dual platelet agents including aspirin and Effient. IV heparin will be also initiated. On 10/03/2018, follow-up. The patient is still intubated on a mechanical ventilator. The patient remains on Impala for hemodynamic support. Clinically she is well sedated and she is calm and comfortable on 50 g of propofol. The patient is intubated on a mechanical ventilator and FiO2 has been drop down to 50% and PEEP is still at 7. I reviewed today's blood gas and the patient is adequate oxygenation with a pO2 of 184. The pH is at 7.47 with a pCO2 of 31. Based on this, drop the FiO2 down to 40% and drop the PEEP down to 5. Chest x- ray shows adequate expansion of both lungs. ET tube is in a good location. The patient has a triple lumen catheter in the left IJ and later on during the day there was some oozing at the catheter insertion site probably related to the use of IV heparin. Hemoglobin dropped down to 8.6 and was still monitoring the he moglobin. Appropriate dressing has been applied to the left IJ puncture site. The patient is on a combination of pressors and the patient is currently on examination of norepinephrine infusion and epinephrine the dose being titrated to maintain a mean artery pressure above 65. Creatinine is up to 1.4. The patient is producing around 30-40 mL an hour of urine output. She is afebrile. Impala catheter is still in place and the patient is receiving adequate hemodynamic support. CVP earlier was 5 and the patient was given a bolus of 500 mL and the patient is also receiving maintenance fluids of 75 mL an hour. The patient remains on a combination of aspirin, Effient and the patient is also on IV heparin. No fever. No seizure activity. The patient is still sensing painful stimulation she withdraws to painful stimulation all 4 extremities. Pupils are 4 mm in size and reactive to light. The white cell count is up to 22. On 10/04/2018 I'm seeing this patient for a follow-up. The patient is well sedated and patient's, comfortable likely distress. The patient is still on a mechanical ventilator with a vent setting being an FiO2 of 40% with a PEEP of 5 and a tidal volume of 450. The chest x-ray today shows no acute abnormalities. The patient has an ET tube in place. No significant edema pneumonia or effusions. The blood gas showed a pH of 7.39 with a pCO2 of 38 and pO2 of 117. This was done and FiO2 of 40%. CVP is around 8. The patient is on norepinephrine infusion at 0.15 g per KG per minute. Epinephrine drip was discontinued. The plan is to remove the Impala today as the patient is improved hemodynamically. Noted the patient was having some oozing of blood from the puncture site including left IJ and the puncture site in the right femoral area where the femoral sheath and the Impala catheter was inserted. Amount of bleeding is minimal. The patient received 2 units of packed RBC yesterday. Hemoglobin today is at 7.6. Patient will grade temperature spike yesterday and for that reason cultures were sent and the patient was given a dose of vancomyc in. White cell count is at 16.3. Otherwise, he is receiving tube feeds at the rate of 25 mL an hour of vital high protein. IV heparin has been discontinued. She remains on a combination of aspirin and Effient. She is on insulin drip for blood sugar control. No other significant events overnight. Atelectatic discussion with cardiology. The plan is to remove the Impala today. Coagulation profile is within normal limits. Platelet count remains at 143. Objective - Vital Signs Vital signs: Vital Signs Temp 36.9 F L 10/04/18 16:00 Pulse 96 10/04/18 16:00 Resp 16 10/04/18 16:00 BP 105/47 10/04/18 16:00 Pulse Ox 100 10/04/18 16:00 Intake & Output 10/03/18 10/04/18 10/04/18 18:59 06:59 18:59 Intake Total 2840.197 8479.604 1702.028 Output Total 410 563 480 Balance 5788.090 1227.604 1222.028 Weight 95.1 kg 98.7 kg Intake: IV 1160 1522 1060 Normal Saline @ 100mls/hr 1000 Sodium Chloride 0.9% 1, 1100 1200 000 ml @ 100 mls/hr IV . Q10H [facility] Rx#:[id number] Vancomycin 1,500 mg In 250 Sodium Chloride 0.9% 250 ml @ 125 mls/hr IVPB Q24H [facility] Rx#:[id number] pressure bags 60 72 60 Intake, IV Titration 687.163 540.604 387.028 Amount EPINEPHrine 4 mg In 239.670 67.941 Dextrose 5% in Water 250 ml @ 0.033 MCG/KG/MIN 11. 058 mls/hr IV .[id number] [facility] Rx#:[id number] Heparin Sod,Pork in 0.45% 167.667 46.716 NaCl 25,000 unit In 0.45 % NaCl 1 250ml.bag @ 12 UNITS/KG/HR 10.723 mls/hr IV .[id number] [facility] Rx#: [id number] Insulin Regular 100 unit 28.794 17.465 8.130 In Sodium Chloride 0.9% 100 ml @ Per Protocol IV .Q0M [facility] Rx#:[id number] Norepinephrine 32 mg In 57.777 127.614 47.185 Sodium Chloride 0.9% 218 ml @ 0.17 MCG/KG/MIN 7. 578 mls/hr IV .Q24H [facility] Rx#:[id number] Norepinephrine 4 mg In 34.726 Sodium Chloride 0.9% 250 ml @ 0.11 MCG/KG/MIN 37. 45 mls/hr IV .[id number] [facility] Rx#:[id number] Propofol 1,000 mg In 158.529 280.868 331.713 Empty Bag 1 bag @ Titrate IV .Q0M [facility] Rx#: [id number] Tube Feeding 300 175 Blood Product 620 Rc As-3 Unit 310 [id number] Other 90 80 Output: Urine 410 563 480 Other: Voiding Method Indwelling Catheter Indwelling Catheter Indwelling Catheter ABP, PAP, CO, CI - Last Documented Arterial Blood Pressure 106/57 - Exam Gen. appearance the patient is sedated, comfortable active distress. The patient is currently on propofol and withdrawing to painful stimulation. Head exam was generally normal. There was no scleral icterus or corneal arcus. Mucous membranes were moist. Neck was supple and without jugular venous distension, thyromegaly, or carotid bruits. Carotids were easily palpable bilaterally. There was no adenopathy. The patient has a left IJ triple-lumen catheter with minimal amount of blood oozing along the puncture site and appropriate dressing has been applied. No active bleeding for now. Lungs sounds are diminished bilaterally and there are some scattered rhonchi. There is some frothy secretions with orotracheal tube. Cardiac exam revealed the PMI to be normally situated and sized. The rhythm was regular and no extrasystoles were noted during several minutes of auscultation. The first and second heart sounds were normal and physiologic splitting of the second heart sound was noted. There were no murmurs, rubs, clicks, or gallops. Abdominal exam revealed normal bowel sounds. The abdomen was soft, non-tender, and without masses, organomegaly, or appreciable enlargement of the abdominal aorta. Extremities: The patient diminished yet palpable pulses all 4 extremities. No cyanosis or clubbing. Examination of the skin revealed no evidence of significant rashes, suspicious appearing nevi or other concerning lesions. Neurologically the patient withdraws to painful stimulation. Pupils are slightly elevated as the patient received atropine prior to her coming to the ICU. No facial asymmetry. No Babinski. No clonus. No seizure activity noted. - Labs CBC & Chem 7: 10/04/18 04:52 10/04/18 04:52 Labs: Abnormal Lab Results - Last 24 Hours (Table) 10/03/18 10/03/18 10/03/18 Range/Units 17:51 19:08 19:08 WBC 21.1 H (3.8-10.6) k/uL RBC 2.86 L (3.80-5.40) m/uL Hgb 7.7 L (11.4-16.0) gm/dL Hct 23.9 L (34.0-46.0) % Plt Count (150-450) k/uL APTT 46.2 H (22.0-30.0) sec ABG pO2 (83-108) mmHg ABG O2 Saturation (94-97) % Chloride (98-107) mmol/L BUN (7-17) mg/dL Creatinine (0.52-1.04) mg/dL Glucose (74-99) mg/dL POC Glucose (mg/dL) 151 H (75-99) mg/dL Calcium (8.4-10.2) mg/dL Lactate Dehydrogenase (313-618) U/L Crossmatch 10/03/18 10/03/18 10/03/18 Range/Units 19:08 19:12 19:40 WBC (3.8-10.6) k/uL RBC (3.80-5.40) m/uL Hgb (11.4-16.0) gm/dL Hct (34.0-46.0) % Plt Count (150-450) k/uL APTT (22.0-30.0) sec ABG pO2 (83-108) mmHg ABG O2 Saturation (94-97) % Chloride (98-107) mmol/L BUN (7-17) mg/dL Creatinine (0.52-1.04) mg/dL Glucose (74-99) mg/dL POC Glucose (mg/dL) 172 H (75-99) mg/dL Calcium (8.4-10.2) mg/dL Lactate Dehydrogenase 4022 H (313-618) U/L Crossmatch See Detail 10/03/18 10/03/18 10/03/18 Range/Units 19:54 21:12 22:15 WBC (3.8-10.6) k/uL RBC (3.80-5.40) m/uL Hgb (11.4-16.0) gm/dL Hct (34.0-46.0) % Plt Count (150-450) k/uL APTT (22.0-30.0) sec ABG pO2 (83-108) mmHg ABG O2 Saturation (94-97) % Chloride (98-107) mmol/L BUN (7-17) mg/dL Creatinine (0.52-1.04) mg/dL Glucose (74-99) mg/dL POC Glucose (mg/dL) 166 H 213 H 174 H (75-99) mg/dL Calcium (8.4-10.2) mg/dL Lactate Dehydrogenase (313-618) U/L Crossmatch 10/03/18 10/03/18 10/03/18 Range/Units 23:07 23:20 23:57 WBC 18.8 H (3.8-10.6) k/uL RBC 3.11 L (3.80-5.40) m/uL Hgb 8.8 L (11.4-16.0) gm/dL Hct 26.4 L (34.0-46.0) % Plt Count (150-450) k/uL APTT (22.0-30.0) sec ABG pO2 (83-108) mmHg ABG O2 Saturation (94-97) % Chloride (98-107) mmol/L BUN (7-17) mg/dL Creatinine (0.52-1.04) mg/dL Glucose (74-99) mg/dL POC Glucose (mg/dL) 166 H 175 H (75-99) mg/dL Calcium (8.4-10.2) mg/dL Lactate Dehydrogenase (313-618) U/L Crossmatch 10/04/18 10/04/18 10/04/18 Range/Units 01:43 01:44 02:58 WBC (3.8-10.6) k/uL RBC (3.80-5.40) m/uL Hgb (11.4-16.0) gm/dL Hct (34.0-46.0) % Plt Count (150-450) k/uL APTT (22.0-30.0) sec ABG pO2 (83-108) mmHg ABG O2 Saturation (94-97) % Chloride (98-107) mmol/L BUN (7-17) mg/dL Creatinine (0.52-1.04) mg/dL Glucose (74-99) mg/dL POC Glucose (mg/dL) 158 H 129 H (75-99) mg/dL Calcium (8.4-10.2) mg/dL Lactate Dehydrogenase 3192 H (313-618) U/L Crossmatch 10/04/18 10/04/18 10/04/18 Range/Units 04:01 04:35 04:51 WBC (3.8-10.6) k/uL RBC (3.80-5.40) m/uL Hgb (11.4-16.0) gm/dL Hct (34.0-46.0) % Plt Count (150-450) k/uL APTT (22.0-30.0) sec ABG pO2 117 H (83-108) mmHg ABG O2 Saturation 98.6 H (94-97) % Chloride (98-107) mmol/L BUN (7-17) mg/dL Creatinine (0.52-1.04) mg/dL Glucose (74-99) mg/dL POC Glucose (mg/dL) 132 H 137 H (75-99) mg/dL Calcium (8.4-10.2) mg/dL Lactate Dehydrogenase (313-618) U/L Crossmatch 10/04/18 10/04/18 10/04/18 Range/Units 04:52 04:52 06:00 WBC 16.3 H (3.8-10.6) k/uL RBC 2.70 L (3.80-5.40) m/uL Hgb 7.6 L (11.4-16.0) gm/dL Hct 23.1 L (34.0-46.0) % Plt Count 143 L (150-450) k/uL APTT (22.0-30.0) sec ABG pO2 (83-108) mmHg ABG O2 Saturation (94-97) % Chloride 114 H (98-107) mmol/L BUN 48 H (7-17) mg/dL Creatinine 1.89 H (0.52-1.04) mg/dL Glucose 114 H (74-99) mg/dL POC Glucose (mg/dL) 131 H (75-99) mg/dL Calcium 7.0 L (8.4-10.2) mg/dL Lactate Dehydrogenase (313-618) U/L Crossmatch 10/04/18 10/04/18 10/04/18 Range/Units 07:00 08:39 09:29 WBC (3.8-10.6) k/uL RBC (3.80-5.40) m/uL Hgb (11.4-16.0) gm/dL Hct (34.0-46.0) % Plt Count (150-450) k/uL APTT 35.7 H (22.0-30.0) sec ABG pO2 (83-108) mmHg ABG O2 Saturation (94-97) % Chloride (98-107) mmol/L BUN (7-17) mg/dL Creatinine (0.52-1.04) mg/dL Glucose (74-99) mg/dL POC Glucose (mg/dL) 130 H 114 H (75-99) mg/dL Calcium (8.4-10.2) mg/dL Lactate Dehydrogenase (313-618) U/L Crossmatch 10/04/18 10/04/18 10/04/18 Range/Units 09:29 10:20 11:15 WBC (3.8-10.6) k/uL RBC (3.80-5.40) m/uL Hgb (11.4-16.0) gm/dL Hct (34.0-46.0) % Plt Count (150-450) k/uL APTT (22.0-30.0) sec ABG pO2 (83-108) mmHg ABG O2 Saturation (94-97) % Chloride (98-107) mmol/L BUN (7-17) mg/dL Creatinine (0.52-1.04) mg/dL Glucose (74-99) mg/dL POC Glucose (mg/dL) 166 H 172 H (75-99) mg/dL Calcium (8.4-10.2) mg/dL Lactate Dehydrogenase 1773 H (313-618) U/L Crossmatch 10/04/18 10/04/18 Range/Units 14:09 15:48 WBC (3.8-10.6) k/uL RBC (3.80-5.40) m/uL Hgb (11.4-16.0) gm/dL Hct (34.0-46.0) % Plt Count (150-450) k/uL APTT (22.0-30.0) sec ABG pO2 (83-108) mmHg ABG O2 Saturation (94-97) % Chloride (98-107) mmol/L BUN (7-17) mg/dL Creatinine (0.52-1.04) mg/dL Glucose (74-99) mg/dL POC Glucose (mg/dL) 183 H 150 H (75-99) mg/dL Calcium (8.4-10.2) mg/dL Lactate Dehydrogenase (313-618) U/L Crossmatch Microbiology - Last 24 Hours (Table) 10/02/18 21:00 Urine Culture - Final Urine,Voided Assessment and Plan Plan: 1 acute cardiac arrest during cardiac catheterization and stenting of the LAD. The patient had on and off hypotension cardiac arrest including V. fib and PEA during the resuscitation efforts. Note that the patient was obtaining blood pressure and pulse in between these episodes of cardiac arrest in the [place] resuscitation process was around 60 minutes at least. Ultimately the patient had a stable pressure. Impala was inserted for hemodynamic suppor. The patient was started on a combination of epinephrine and norepinephrine and the patient got transferred to the intensive care unit. Currently the patient is on pressors and maintaining a appropriate blood pressure with adequate pulses in all 4 extremities On today's evaluation of 10/03/2018, echocardiogram revealed an ejection fraction of 30-35%. The patient remains on a combination of epinephrine norepinephrine. The patient is producing adequate amount of urine output. Still on Impala for hemodynamic support. Cardiac rhythm remains sinus and there has been no further episodes of any cardiac arrest for now. The patient is on a combination of aspirin and Effient and IV heparin and the patient is post stenting of the LAD. Hemodynamically improved and the patient remains intubated on mechanical ventilator. On today's evaluation of 10/04/2018, the patient would have the ampulla removed. Meanwhile hemodynamically she is doing better compared to yesterday. She remains on 0.15 g per KG per minute of norepinephrine infusion and epinephrine has been discontinued. The patient remains intubated on a mechanical ventilator. Remains on a combination of aspirin and Effient. IV heparin has been discontinued. 2 coronary artery disease with insertion of a stent in the LAD for a mid LAD lesion. Please refer to the cardiac catheterization report. Currently on a combination of aspirin and Effient. 3 acute hypoxic respiratory failure secondary to above, currently intubated on a mechanical ventilator, and the patient demonstrates adequate oxygenation and ventilation while being on a mechanical ventilator with an FiO2 of 40% and a PEEP of 5 4 pulmonary edema, recovered 5 hypotension secondary to above, currently on pressors and Impala for hemodynamic support 6 diabetes mellitus 7 hyperlipidemia 8 diabetic peripheral neuropathy 9 acute anemia, consider blood loss anemia versus dilutional versus intravascular hemolysis rate of the patella and the patient has received a unit of packed RBC and hemoglobin is up to 7.6 10 acute leukocytosis, with an episodes of fever and the patient was given a dose of vancomycin and cultures of been sent 11 acute kidney injury with a creatinine of 1.8 Plan Continue current vent support. Removed Impala. Wean off norepinephrine. Sedation holiday ventilator stage. Continue rest the supportive care. Monitor the fever pattern. Monitor the cultures. A dose of vancomycin was given. Monitor hemoglobin. No need for transfusion at this point in time. We'll continue to follow make further recommendations based on her progress. The patient remains critically ill. Evaluation was done more than 30 minutes. Family has been updated on her condition. Time with Patient: Greater than 30
[2018-10-04 17:30] LABS: Glucose,Whole Blood 185 mg/dL (75-99)
[2018-10-04 18:58] LABS: Glucose,Whole Blood 179 mg/dL (75-99)
[2018-10-04] MEDS: EPINEPHrine 4 MG in DEXTROSE 5% IN WATER 250 ML IV SCH ×2 (19:53)
[2018-10-04] MEDS ORDERED: VANCOMYCIN 1,500 MG in SODIUM CHLORIDE 0.9% 250 ML IVPB ONE (20:00)
[2018-10-04 20:22] LABS: Glucose,Whole Blood 184 mg/dL (75-99)
[2018-10-04 21:07] LABS: Glucose,Whole Blood 180 mg/dL (75-99)
[2018-10-04 22:37] LABS: Glucose,Whole Blood 131 mg/dL (75-99)
[2018-10-04 23:16] LABS: Glucose,Whole Blood 161 mg/dL (75-99)
[2018-10-05 00:01] LABS: Glucose,Whole Blood 178 mg/dL (75-99)
[2018-10-05] MEDS: SODIUM CHLORIDE 0.9% 1,000 ML IV SCH ×3 (00:07→22:10)
[2018-10-05 00:35] LABS: Glucose,Whole Blood 188 mg/dL (75-99)
[2018-10-05 01:20] LABS: Glucose,Whole Blood 200 mg/dL (75-99)
[2018-10-05] MEDS: PROPOFOL 1,000 MG in EMPTY BAG 1 BAG IV SCH ×4 (01:44→22:50)
[2018-10-05 02:24] LABS: Glucose,Whole Blood 189 mg/dL (75-99)
[2018-10-05 03:16] LABS: Glucose,Whole Blood 180 mg/dL (75-99)
[2018-10-05 04:11] LABS: Glucose,Whole Blood 172 mg/dL (75-99)
[2018-10-05] MEDS: HYDROmorphone 1 MG/ML 1 ML SYRINGE IVP PRN ×4 (04:32→23:08)
[2018-10-05 05:15] LABS: Glucose,Whole Blood 164 mg/dL (75-99)
[2018-10-05 05:41] LABS: ABG HCO3 22 mmol/L (21-25); ABG Oxygen Saturation 98.4 % (94-97); ABG PCO2 41 mmHg (35-45); ABG PH 7.34 (7.35-7.45); ABG PO2 108 mmHg (83-108); ABG TCO2 23 mmol/L (19-24)
--- NOTE | 2018-10-05 06:24 | XR ---
EXAMINATION TYPE: XR chest 1V portable DATE OF EXAM: 10/05/2018 HISTORY: Tube placement. REFERENCE: Previous study dated 10/04/2018. FINDINGS: The patient is ET tube and NG tube remain in place, unchanged in appearance. A left interna l jugular catheter remains in place. Its tip is in the right atrium. There is bibasilar airspace disease, worse on the left than the right. There are small effusions, wor se on the left than the right. IMPRESSION: WORSENING BILATERAL AIRSPACE DISEASE.
[2018-10-05 06:33] LABS: Glucose,Whole Blood 160 mg/dL (75-99)
--- NOTE | 2018-10-05 06:51 | P.PN ---
Subjective Progress Note Date: 10/05/18 Principal diagnosis: Coronary artery disease/cardiogenic shock This is a 63-year-old female patient who was admitted to the hospital yesterday and underwent a heart catheterization on successful stenting of the mid LAD with the procedure was complicated by cardiogenic shock of unknown etiology. An Impella was placed and the patient was intubated and was admitted to the intens [facility] care unit. On follow-up with the patient today, October [id number], the Impella was taken out yesterday. The right groin is soft and nontender and without any discrete hematoma and not even bruises. I was able to feel palpable pulse in the dorsalis pedis on the right side. Otherwise, hemodynamically the patient continues to be slightly unstable and requiring small dose of Levophed and we'll try to wean her and come down with levo fed. She still intubated on mechanical ventilation. The blood pressure has been marginal. We don't have any blood work from today including CBC or BMP as of yet. I did review the chest x-ray this morning which revealed left pleural effusion. The patient might benefit from some IV Lasix. I will continue coordinate with the critical care team. Beside that were await for the results of the blood work including the CBC and BMP. Objective - Vital Signs Vital signs: Vital Signs Temp 98.8 F 10/05/18 04:00 Pulse 81 10/05/18 06:00 Resp 16 10/05/18 06:00 BP 122/59 10/05/18 04:00 Pulse Ox 100 10/05/18 06:00 Intake & Output 10/04/18 10/04/18 10/05/18 06:59 18:59 06:59 Intake Total 3072.604 2829.957 4802.937 Output Total 563 580 525 Balance 2509.604 7695.361 1556.937 Weight 98.7 kg Intake: IV 1522 1272 1272 Normal Saline @ 100mls/hr 1200 1200 Sodium Chloride 0.9% 1, 1200 000 ml @ 100 mls/hr IV . Q10H [facility] Rx#:[id number] Vancomycin 1,500 mg In 250 Sodium Chloride 0.9% 250 ml @ 125 mls/hr IVPB Q24H [facility] Rx#:[id number] pressure bags 72 72 72 Intake, IV Titration 540.604 465.298 410.937 Amount EPINEPHrine 4 mg In 67.941 Dextrose 5% in Water 250 ml @ 0.033 MCG/KG/MIN 11. 058 mls/hr IV .[id number] [facility] Rx#:[id number] Heparin Sod,Pork in 0.45% 46.716 NaCl 25,000 unit In 0.45 % NaCl 1 250ml.bag @ 12 UNITS/KG/HR 10.723 mls/hr IV .[id number] [facility] Rx#: [id number] Insulin Regular 100 unit 17.465 8.896 22.608 In Sodium Chloride 0.9% 100 ml @ Per Protocol IV .Q0M [facility] Rx#:[id number] Norepinephrine 32 mg In 127.614 61.302 38.329 Sodium Chloride 0.9% 218 ml @ 0.17 MCG/KG/MIN 7. 578 mls/hr IV .Q24H [facility] Rx#:[id number] Propofol 1,000 mg In 280.868 395.100 100 Empty Bag 1 bag @ Titrate IV .Q0M [facility] Rx#: [id number] Vancomycin 1,500 mg In 250 Sodium Chloride 0.9% 250 ml @ 125 mls/hr IVPB ONCE ONE Rx#:[id number] Tube Feeding 300 175 Blood Product 620 Rc As-3 Unit 310 [id number] Other 90 80 Output: Urine 563 580 525 Other: Voiding Method Indwelling Catheter Indwelling Catheter Indwelling Catheter ABP, PAP, CO, CI - Last Documented Arterial Blood Pressure 112/48 - Constitutional General appearance: Present: no acute distress - Respiratory Respiratory: bilateral: diminished - Cardiovascular Rhythm: regular Heart sounds: normal: S1, S2 - Labs CBC & Chem 7: 10/04/18 04:52 10/04/18 04:52 Labs: Abnormal Lab Results - Last 24 Hours (Table) 10/04/18 10/04/18 10/04/18 Range/Units 07:00 08:39 09:29 APTT 35.7 H (22.0-30.0) sec Fibrinogen (200-500) mg/dL ABG pH (7.35-7.45) ABG O2 Saturation (94-97) % POC Glucose (mg/dL) 130 H 114 H (75-99) mg/dL Lactate Dehydrogenase (313-618) U/L 10/04/18 10/04/18 10/04/18 Range/Units 09:29 10:20 11:15 APTT (22.0-30.0) sec Fibrinogen (200-500) mg/dL ABG pH (7.35-7.45) ABG O2 Saturation (94-97) % POC Glucose (mg/dL) 166 H 172 H (75-99) mg/dL Lactate Dehydrogenase 1773 H (313-618) U/L 10/04/18 10/04/18 10/04/18 Range/Units 14:09 15:48 17:16 APTT (22.0-30.0) sec Fibrinogen (200-500) mg/dL ABG pH (7.35-7.45) ABG O2 Saturation (94-97) % POC Glucose (mg/dL) 183 H 150 H 185 H (75-99) mg/dL Lactate Dehydrogenase (313-618) U/L 10/04/18 10/04/18 10/04/18 Range/Units 18:45 20:10 20:56 APTT (22.0-30.0) sec Fibrinogen (200-500) mg/dL ABG pH (7.35-7.45) ABG O2 Saturation (94-97) % POC Glucose (mg/dL) 179 H 184 H 180 H (75-99) mg/dL Lactate Dehydrogenase (313-618) U/L 10/04/18 10/04/18 10/04/18 Range/Units 22:26 23:04 23:50 APTT (22.0-30.0) sec Fibrinogen (200-500) mg/dL ABG pH (7.35-7.45) ABG O2 Saturation (94-97) % POC Glucose (mg/dL) 131 H 161 H 178 H (75-99) mg/dL Lactate Dehydrogenase (313-618) U/L 10/05/18 10/05/18 10/05/18 Range/Units 00:23 01:09 01:45 APTT (22.0-30.0) sec Fibrinogen 546 H (200-500) mg/dL ABG pH (7.35-7.45) ABG O2 Saturation (94-97) % POC Glucose (mg/dL) 188 H 200 H (75-99) mg/dL Lactate Dehydrogenase (313-618) U/L 10/05/18 10/05/18 10/05/18 Range/Units 01:45 02:12 03:04 APTT (22.0-30.0) sec Fibrinogen (200-500) mg/dL ABG pH (7.35-7.45) ABG O2 Saturation (94-97) % POC Glucose (mg/dL) 189 H 180 H (75-99) mg/dL Lactate Dehydrogenase 1940 H (313-618) U/L 10/05/18 10/05/18 10/05/18 Range/Units 04:00 05:03 05:37 APTT (22.0-30.0) sec Fibrinogen (200-500) mg/dL ABG pH 7.34 L (7.35-7.45) ABG O2 Saturation 98.4 H (94-97) % POC Glucose (mg/dL) 172 H 164 H (75-99) mg/dL Lactate Dehydrogenase (313-618) U/L 10/05/18 Range/Units 06:22 APTT (22.0-30.0) sec Fibrinogen (200-500) mg/dL ABG pH (7.35-7.45) ABG O2 Saturation (94-97) % POC Glucose (mg/dL) 160 H (75-99) mg/dL Lactate Dehydrogenase (313-618) U/L Microbiology - Last 24 Hours (Table) 10/03/18 20:07 Blood Culture - Preliminary Blood No Growth after 24 hours 10/03/18 20:07 Blood Culture - Preliminary Blood No Growth after 24 hours Assessment and Plan Assessment: Assessment #1 coronary artery disease and status post PCI of the LAD #2 cardiogenic shock requiring mechanical support #3 acute respiratory failure #4 acute renal failure #5 anemia Plan #1 continue dual antiplatelet therapy #2 awaiting the results of the blood work including CBC and BMP #3 the right wean the patient from the vasopressors #4 hopefully extubation in the next 24 hours #5 follow-up with the patient
[2018-10-05 07:12] LABS: Glucose,Whole Blood 150 mg/dL (75-99)
[2018-10-05] MEDS: NOREPINEPHRINE 32 MG in SODIUM CHLORIDE 0.9% 218 ML IV SCH (07:22)
[2018-10-05 08:22] LABS: Anisocytosis Slight; Hypochromasia Slight; MCH 28.8 pg (25.0-35.0); MCHC 33.4 g/dL (31.0-37.0); MCV 86.4 fL (80.0-100.0); Mean Platelet Volume 9.7; Platelet Count 112 k/uL (150-450); RBC 1.86 m/uL (3.80-5.40); WBC 14.6 k/uL (3.8-10.6)
[2018-10-05 08:26] LABS: HCT 16.1 % (34.0-46.0); HGB 5.4 gm/dL (11.4-16.0)
[2018-10-05] MEDS: IPRATROPIUM-ALBUTEROL 3 ML NEB INHALATION SCH ×4 (08:26→19:30)
[2018-10-05 08:30] LABS: Calcium 7.8 mg/dL (8.4-10.2); Potassium 4.3 mmol/L (3.5-5.1)
[2018-10-05 08:34] LABS: INR 0.8 (<1.2); Prothrombin Time 9.3 sec (9.0-12.0)
[2018-10-05 08:37] LABS: Partial Thromboplastin Time 21.3 sec (22.0-30.0)
[2018-10-05 08:39] LABS: Glucose,Whole Blood 156 mg/dL (75-99)
[2018-10-05] MEDS: PRASUGREL 10 MG TAB PO SCH (09:11)
[2018-10-05] MEDS: CHLORHEXIDINE GLUCONATE 15 ML CUP MUCOUS MEM SCH ×2 (09:11→21:09)
[2018-10-05] MEDS: ASPIRIN 81 MG PO SCH (09:11)
[2018-10-05 09:34] LABS: Glucose,Whole Blood 123 mg/dL (75-99)
[2018-10-05 10:12] LABS: Glucose,Whole Blood 154 mg/dL (75-99)
[2018-10-05] MEDS ORDERED: FUROSEMIDE 10 MG/ML 4 ML VIAL IV STA (11:06)
[2018-10-05 11:10] LABS: Glucose,Whole Blood 171 mg/dL (75-99)
[2018-10-05] MEDS: PANTOPRAZOLE 40 MG/10 ML VIAL IVP SCH (11:31)
[2018-10-05 12:10] LABS: Glucose,Whole Blood 158 mg/dL (75-99)
[2018-10-05 13:09] LABS: Glucose,Whole Blood 172 mg/dL (75-99)
[2018-10-05 14:06] LABS: Glucose,Whole Blood 166 mg/dL (75-99)
[2018-10-05 14:52] LABS: Basophils % (A) 0 %; Eosinophils # (A) 0.2 k/uL (0-0.7); Eosinophils % (A) 1 %; HCT 22.4 % (34.0-46.0); Lymphocytes # (A) 0.8 k/uL (1.0-4.8); Lymphocytes % (A) 7 %; MCH 29.2 pg (25.0-35.0); MCHC 33.3 g/dL (31.0-37.0); MCV 87.5 fL (80.0-100.0); Mean Platelet Volume 8.6; Monocytes # (A) 0.4 k/uL (0-1.0); Monocytes % (A) 3 %; Neutrophils # (A) 9.6 k/uL (1.3-7.7); Neutrophils % (A) 87 %; RBC 2.55 m/uL (3.80-5.40); RDW 15.2 % (11.5-15.5); WBC 11.1 k/uL (3.8-10.6)
[2018-10-05 14:56] LABS: HGB 7.4 gm/dL (11.4-16.0)
[2018-10-05 14:58] LABS: Platelet Count 93 k/uL (150-450)
--- NOTE | 2018-10-05 15:05 | P.PN ---
Subjective Progress Note Date: 10/05/18 A 63-year-old female patient with known history of coronary artery disease, hypertension and diabetes mellitus and hyperlipidemia and peripheral neuropathy. She is an ex-smoker. The patient came in for elective cardiac catheterization during which the patient was found to have a mid LAD lesion. During the procedure, the patient went into cardiac arrest. As the angioplasty was being performed, the patient developed profound hypotension and went into a PEA. Note that the patient continued to have on and off hypotension and cardiac arrest for approximately 60 minutes in the [employer]. During the process, the LAD stent was the fluid, resuscitation was done during which the patient received CPR and defibrillation. Pressors were initiated. Patient was intubated. Please refer to the cardiology note regarding the details of the cardiac arrest and resuscitation procedure. Note that in and pallor was also inserted to augment her cardiac output and hemodynamics. I saw the patient immediately after she arrived to the intensive care unit. She was withdrawing to painful stimulation. I had to put that on propofol for sedation and currently propofol is running. 40 g per KG per minute. The patient was intubated on a mechanical ventilator. I noted the blood gases and the patient had a component of respiratory metabolic acidosis. I made the appropriate vent changes and the patient is currently on a VC plus mode with a tidal volume of 450, respiratory rate of 26, FiO2 of 100% with a PEEP of 7. The most recent blood gas showed a pH of 7.29 with a pCO2 of 30 and pO2 of 21 and this was on the fentanyl 100%. FiO2 will be gradually weaned off. Chest x-ray was done and ET tube was in the proximal right mainstem. The tube was withdrawn by around 2 cm. Chest x-ray was consistent with pulmonary edema and the patient was having some frothy rest or secretions in the orotracheal tube. I was informed by cardiology that the patient did not have any coronary dissection or perforation. There was no evidence of a tamponade. No valvular disruption. Impala was in place in the right femoral artery. The patient also had a sheath in the right femoral vein. She has adequate pulses in all 4 extremities. The patient was maintained on a combination of factors including 3 g of nore pinephrine infusion and 10 g of levo fed infusion. Urine output has been no other of 30 mL an hour. The patient has been afebrile. She is on dual platelet agents including aspirin and Effient. IV heparin will be also initiated. On 10/03/2018, follow-up. The patient is still intubated on a mechanical ventilator. The patient remains on Impala for hemodynamic support. Clinically she is well sedated and she is calm and comfortable on 50 g of propofol. The patient is intubated on a mechanical ventilator and FiO2 has been drop down to 50% and PEEP is still at 7. I reviewed today's blood gas and the patient is adequate oxygenation with a pO2 of 184. The pH is at 7.47 with a pCO2 of 31. Based on this, drop the FiO2 down to 40% and drop the PEEP down to 5. Chest x- ray shows adequate expansion of both lungs. ET tube is in a good location. The patient has a triple lumen catheter in the left IJ and later on during the day there was some oozing at the catheter insertion site probably related to the use of IV heparin. Hemoglobin dropped down to 8.6 and was still monitoring the he moglobin. Appropriate dressing has been applied to the left IJ puncture site. The patient is on a combination of pressors and the patient is currently on examination of norepinephrine infusion and epinephrine the dose being titrated to maintain a mean artery pressure above 65. Creatinine is up to 1.4. The patient is producing around 30-40 mL an hour of urine output. She is afebrile. Impala catheter is still in place and the patient is receiving adequate hemodynamic support. CVP earlier was 5 and the patient was given a bolus of 500 mL and the patient is also receiving maintenance fluids of 75 mL an hour. The patient remains on a combination of aspirin, Effient and the patient is also on IV heparin. No fever. No seizure activity. The patient is still sensing painful stimulation she withdraws to painful stimulation all 4 extremities. Pupils are 4 mm in size and reactive to light. The white cell count is up to 22. On 10/04/2018 I'm seeing this patient for a follow-up. The patient is well sedated and patient's, comfortable likely distress. The patient is still on a mechanical ventilator with a vent setting being an FiO2 of 40% with a PEEP of 5 and a tidal volume of 450. The chest x-ray today shows no acute abnormalities. The patient has an ET tube in place. No significant edema pneumonia or effusions. The blood gas showed a pH of 7.39 with a pCO2 of 38 and pO2 of 117. This was done and FiO2 of 40%. CVP is around 8. The patient is on norepinephrine infusion at 0.15 g per KG per minute. Epinephrine drip was discontinued. The plan is to remove the Impala today as the patient is improved hemodynamically. Noted the patient was having some oozing of blood from the puncture site including left IJ and the puncture site in the right femoral area where the femoral sheath and the Impala catheter was inserted. Amount of bleeding is minimal. The patient received 2 units of packed RBC yesterday. Hemoglobin today is at 7.6. Patient will grade temperature spike yesterday and for that reason cultures were sent and the patient was given a dose of vancomyc in. White cell count is at 16.3. Otherwise, he is receiving tube feeds at the rate of 25 mL an hour of vital high protein. IV heparin has been discontinued. She remains on a combination of aspirin and Effient. She is on insulin drip for blood sugar control. No other significant events overnight. Atelectatic discussion with cardiology. The plan is to remove the Impala today. Coagulation profile is within normal limits. Platelet count remains at 143. On 10/05/2018 the patient is sedated, comfortable on a mechanical ventilator. Hemodynamically the patient is doing well off Impala. Epinephrine drip. Norepinephrine infusion is running at a low rate and this can be gradually weaned off and discontinued hopefully today. IV fluids are running at the rate of 100 mL an hour of normal saline. The patient has adequate urine output. CVP is at 11. Hemoglobin from this morning was at 5.4 and this is expected to be related to the blood loss that occurred at the time of removal of the Impala as I was told that there was some bleeding encountered while doing this intervention. In any rate, there is no hematoma in the thigh. No active bleeding from the puncture sites whether it's in the right groin or in the left IJ area. The patient will be receiving a total of 2 units of packed RBC. No fever. No chills. Cultures of been negative. Cardiac rhythm is still sinus. He remains on a mechanical ventilator. Vent settings are essentially the same and the patient remains on assist control mode of ventilation with a tidal volume of 450, FiO2 of 40% with a PEEP of 5 and the rate of extreme. Chest x- ray shows no acute abnormalities. The patient is tolerating her tube feeds. The plan is to get the patient packed RBC transfusion and following that the patient will be receiving a spontaneous breathing trial to assess her candidacy for further weaning off the mechanical ventilator. Objective - Vital Signs Vital signs: Vital Signs Temp 98.2 F 10/05/18 13:00 Pulse 81 10/05/18 14:00 Resp 16 10/05/18 14:00 BP 110/58 10/05/18 13:45 Pulse Ox 98 10/05/18 14:00 Intake & Output 10/04/18 10/05/18 10/05/18 18:59 06:59 18:59 Intake Total 7167.745 0367.937 1872.346 Output Total 580 525 830 Balance 0869.696 4307.937 1042.346 Weight 98.7 kg 101.3 kg Intake: IV 1272 1272 824 Normal Saline @ 100mls/hr 1200 1200 800 pressure bags 72 72 24 Intake, IV Titration 465.298 510.937 173.346 Amount Insulin Regular 100 unit 8.896 22.608 18.096 In Sodium Chloride 0.9% 100 ml @ Per Protocol IV .Q0M [facility] Rx#:[id number] Norepinephrine 32 mg In 61.302 38.329 41.925 Sodium Chloride 0.9% 218 ml @ 0.17 MCG/KG/MIN 7. 578 mls/hr IV .Q24H [facility] Rx#:[id number] Propofol 1,000 mg In 395.100 200 113.325 Empty Bag 1 bag @ Titrate IV .Q0M [facility] Rx#: [id number] Vancomycin 1,500 mg In 250 Sodium Chloride 0.9% 250 ml @ 125 mls/hr IVPB ONCE ONE Rx#:[id number] Tube Feeding 175 175 Blood Product 620 As-1 Unit 310 [id number] As-1 Unit 310 [id number] Other 80 80 Output: Urine 580 525 830 Other: Voiding Method Indwelling Catheter Indwelling Catheter Indwelling Catheter ABP, PAP, CO, CI - Last Documented Arterial Blood Pressure 98/50 - Exam Gen. appearance the patient is sedated, comfortable active distress. The patient is currently on propofol and withdrawing to painful stimulation. Head exam was generally normal. There was no scleral icterus or corneal arcus. Mucous membranes were moist. Neck was supple and without jugular venous distension, thyromegaly, or carotid bruits. Carotids were easily palpable bilaterally. There was no adenopathy. The patient has a left IJ triple-lumen catheter with minimal amount of blood oozing along the puncture site and appropriate dressing has been applied. No active bleeding for now. Lungs sounds are diminished bilaterally and there are some scattered rhonchi. There is some frothy secretions with orotracheal tube. Cardiac exam revealed the PMI to be normally situated and sized. The rhythm was regular and no extrasystoles were noted during several minutes of auscultation. The first and second heart sounds were normal and physiologic splitting of the second heart sound was noted. There were no murmurs, rubs, clicks, or gallops. Abdominal exam revealed normal bowel sounds. The abdomen was soft, non-tender, and without masses, organomegaly, or appreciable enlargement of the abdominal aorta. Extremities: The patient diminished yet palpable pulses all 4 extremities. No cyanosis or clubbing. The puncture sites of the right groin for Vimpat landed venous sheath oxine. Examination of the skin revealed no evidence of significant rashes, suspicious appearing nevi or other concerning lesions. Neurologically the patient withdraws to painful stimulation. Pupils are equal and symmetrical.. No facial asymmetry. No Babinski. No clonus. No seizure activity noted. - Labs CBC & Chem 7: 10/05/18 14:15 10/05/18 08:00 Labs: Abnormal Lab Results - Last 24 Hours (Table) 10/03/18 10/04/18 10/04/18 Range/Units 19:40 15:48 17:16 WBC (3.8-10.6) k/uL RBC (3.80-5.40) m/uL Hgb (11.4-16.0) gm/dL Hct (34.0-46.0) % RDW (11.5-15.5) % Plt Count (150-450) k/uL Neutrophils # (1.3-7.7) k/uL Lymphocytes # (1.0-4.8) k/uL APTT (22.0-30.0) sec Fibrinogen (200-500) mg/dL ABG pH (7.35-7.45) ABG O2 Saturation (94-97) % Chloride (98-107) mmol/L BUN (7-17) mg/dL Creatinine (0.52-1.04) mg/dL Glucose (74-99) mg/dL POC Glucose (mg/dL) 150 H 185 H (75-99) mg/dL Calcium (8.4-10.2) mg/dL Lactate Dehydrogenase (313-618) U/L Crossmatch See Detail 10/04/18 10/04/18 10/04/18 Range/Units 18:45 20:10 20:56 WBC (3.8-10.6) k/uL RBC (3.80-5.40) m/uL Hgb (11.4-16.0) gm/dL Hct (34.0-46.0) % RDW (11.5-15.5) % Plt Count (150-450) k/uL Neutrophils # (1.3-7.7) k/uL Lymphocytes # (1.0-4.8) k/uL APTT (22.0-30.0) sec Fibrinogen (200-500) mg/dL ABG pH (7.35-7.45) ABG O2 Saturation (94-97) % Chloride (98-107) mmol/L BUN (7-17) mg/dL Creatinine (0.52-1.04) mg/dL Glucose (74-99) mg/dL POC Glucose (mg/dL) 179 H 184 H 180 H (75-99) mg/dL Calcium (8.4-10.2) mg/dL Lactate Dehydrogenase (313-618) U/L Crossmatch 10/04/18 10/04/18 10/04/18 Range/Units 22:26 23:04 23:50 WBC (3.8-10.6) k/uL RBC (3.80-5.40) m/uL Hgb (11.4-16.0) gm/dL Hct (34.0-46.0) % RDW (11.5-15.5) % Plt Count (150-450) k/uL Neutrophils # (1.3-7.7) k/uL Lymphocytes # (1.0-4.8) k/uL APTT (22.0-30.0) sec Fibrinogen (200-500) mg/dL ABG pH (7.35-7.45) ABG O2 Saturation (94-97) % Chloride (98-107) mmol/L BUN (7-17) mg/dL Creatinine (0.52-1.04) mg/dL Glucose (74-99) mg/dL POC Glucose (mg/dL) 131 H 161 H 178 H (75-99) mg/dL Calcium (8.4-10.2) mg/dL Lactate Dehydrogenase (313-618) U/L Crossmatch 10/05/18 10/05/18 10/05/18 Range/Units 00:23 01:09 01:45 WBC (3.8-10.6) k/uL RBC (3.80-5.40) m/uL Hgb (11.4-16.0) gm/dL Hct (34.0-46.0) % RDW (11.5-15.5) % Plt Count (150-450) k/uL Neutrophils # (1.3-7.7) k/uL Lymphocytes # (1.0-4.8) k/uL APTT (22.0-30.0) sec Fibrinogen 546 H (200-500) mg/dL ABG pH (7.35-7.45) ABG O2 Saturation (94-97) % Chloride (98-107) mmol/L BUN (7-17) mg/dL Creatinine (0.52-1.04) mg/dL Glucose (74-99) mg/dL POC Glucose (mg/dL) 188 H 200 H (75-99) mg/dL Calcium (8.4-10.2) mg/dL Lactate Dehydrogenase (313-618) U/L Crossmatch 10/05/18 10/05/18 10/05/18 Range/Units 01:45 02:12 03:04 WBC (3.8-10.6) k/uL RBC (3.80-5.40) m/uL Hgb (11.4-16.0) gm/dL Hct (34.0-46.0) % RDW (11.5-15.5) % Plt Count (150-450) k/uL Neutrophils # (1.3-7.7) k/uL Lymphocytes # (1.0-4.8) k/uL APTT (22.0-30.0) sec Fibrinogen (200-500) mg/dL ABG pH (7.35-7.45) ABG O2 Saturation (94-97) % Chloride (98-107) mmol/L BUN (7-17) mg/dL Creatinine (0.52-1.04) mg/dL Glucose (74-99) mg/dL POC Glucose (mg/dL) 189 H 180 H (75-99) mg/dL Calcium (8.4-10.2) mg/dL Lactate Dehydrogenase 1940 H (313-618) U/L Crossmatch 10/05/18 10/05/18 10/05/18 Range/Units 04:00 05:03 05:37 WBC (3.8-10.6) k/uL RBC (3.80-5.40) m/uL Hgb (11.4-16.0) gm/dL Hct (34.0-46.0) % RDW (11.5-15.5) % Plt Count (150-450) k/uL Neutrophils # (1.3-7.7) k/uL Lymphocytes # (1.0-4.8) k/uL APTT (22.0-30.0) sec Fibrinogen (200-500) mg/dL ABG pH 7.34 L (7.35-7.45) ABG O2 Saturation 98.4 H (94-97) % Chloride (98-107) mmol/L BUN (7-17) mg/dL Creatinine (0.52-1.04) mg/dL Glucose (74-99) mg/dL POC Glucose (mg/dL) 172 H 164 H (75-99) mg/dL Calcium (8.4-10.2) mg/dL Lactate Dehydrogenase (313-618) U/L Crossmatch 10/05/18 10/05/18 10/05/18 Range/Units 06:22 07:00 08:00 WBC (3.8-10.6) k/uL RBC (3.80-5.40) m/uL Hgb (11.4-16.0) gm/dL Hct (34.0-46.0) % RDW (11.5-15.5) % Plt Count (150-450) k/uL Neutrophils # (1.3-7.7) k/uL Lymphocytes # (1.0-4.8) k/uL APTT (22.0-30.0) sec Fibrinogen 585 H (200-500) mg/dL ABG pH (7.35-7.45) ABG O2 Saturation (94-97) % Chloride (98-107) mmol/L BUN (7-17) mg/dL Creatinine (0.52-1.04) mg/dL Glucose (74-99) mg/dL POC Glucose (mg/dL) 160 H 150 H (75-99) mg/dL Calcium (8.4-10.2) mg/dL Lactate Dehydrogenase (313-618) U/L Crossmatch 10/05/18 10/05/18 10/05/18 Range/Units 08:00 08:00 08:00 WBC 14.6 H (3.8-10.6) k/uL RBC 1.86 L (3.80-5.40) m/uL Hgb 5.4 L* D (11.4-16.0) gm/dL Hct 16.1 L* (34.0-46.0) % RDW 16.0 H (11.5-15.5) % Plt Count 112 L (150-450) k/uL Neutrophils # (1.3-7.7) k/uL Lymphocytes # (1.0-4.8) k/uL APTT 21.3 L (22.0-30.0) sec Fibrinogen (200-500) mg/dL ABG pH (7.35-7.45) ABG O2 Saturation (94-97) % Chloride (98-107) mmol/L BUN (7-17) mg/dL Creatinine (0.52-1.04) mg/dL Glucose (74-99) mg/dL POC Glucose (mg/dL) (75-99) mg/dL Calcium (8.4-10.2) mg/dL Lactate Dehydrogenase 1828 H (313-618) U/L Crossmatch 10/05/18 10/05/18 10/05/18 Range/Units 08:00 08:28 09:22 WBC (3.8-10.6) k/uL RBC (3.80-5.40) m/uL Hgb (11.4-16.0) gm/dL Hct (34.0-46.0) % RDW (11.5-15.5) % Plt Count (150-450) k/uL Neutrophils # (1.3-7.7) k/uL Lymphocytes # (1.0-4.8) k/uL APTT (22.0-30.0) sec Fibrinogen (200-500) mg/dL ABG pH (7.35-7.45) ABG O2 Saturation (94-97) % Chloride 114 H (98-107) mmol/L BUN 49 H (7-17) mg/dL Creatinine 1.75 H (0.52-1.04) mg/dL Glucose 120 H (74-99) mg/dL POC Glucose (mg/dL) 156 H 123 H (75-99) mg/dL Calcium 7.8 L (8.4-10.2) mg/dL Lactate Dehydrogenase (313-618) U/L Crossmatch 10/05/18 10/05/18 10/05/18 Range/Units 10:01 10:58 11:59 WBC (3.8-10.6) k/uL RBC (3.80-5.40) m/uL Hgb (11.4-16.0) gm/dL Hct (34.0-46.0) % RDW (11.5-15.5) % Plt Count (150-450) k/uL Neutrophils # (1.3-7.7) k/uL Lymphocytes # (1.0-4.8) k/uL APTT (22.0-30.0) sec Fibrinogen (200-500) mg/dL ABG pH (7.35-7.45) ABG O2 Saturation (94-97) % Chloride (98-107) mmol/L BUN (7-17) mg/dL Creatinine (0.52-1.04) mg/dL Glucose (74-99) mg/dL POC Glucose (mg/dL) 154 H 171 H 158 H (75-99) mg/dL Calcium (8.4-10.2) mg/dL Lactate Dehydrogenase (313-618) U/L Crossmatch 10/05/18 10/05/18 10/05/18 Range/Units 12:58 13:54 14:15 WBC 11.1 H (3.8-10.6) k/uL RBC 2.55 L (3.80-5.40) m/uL Hgb 7.4 L D (11.4-16.0) gm/dL Hct 22.4 L (34.0-46.0) % RDW (11.5-15.5) % Plt Count 93 L (150-450) k/uL Neutrophils # 9.6 H (1.3-7.7) k/uL Lymphocytes # 0.8 L (1.0-4.8) k/uL APTT (22.0-30.0) sec Fibrinogen (200-500) mg/dL ABG pH (7.35-7.45) ABG O2 Saturation (94-97) % Chloride (98-107) mmol/L BUN (7-17) mg/dL Creatinine (0.52-1.04) mg/dL Glucose (74-99) mg/dL POC Glucose (mg/dL) 172 H 166 H (75-99) mg/dL Calcium (8.4-10.2) mg/dL Lactate Dehydrogenase (313-618) U/L Crossmatch Microbiology - Last 24 Hours (Table) 10/05/18 01:18 Gram Stain - Preliminary Sputum Sputum Culture - Preliminary 10/03/18 20:07 Blood Culture - Preliminary Blood No Growth after 24 hours 10/03/18 20:07 Blood Culture - Preliminary Blood No Growth after 24 hours Assessment and Plan Plan: 1 acute cardiac arrest during cardiac catheterization and stenting of the LAD. The patient had on and off hypotension cardiac arrest including V. fib and PEA during the resuscitation efforts. Note that the patient was obtaining blood pressure and pulse in between these episodes of cardiac arrest in the [place] resuscitation process was around 60 minutes at least. Ultimately the patient had a stable pressure. Impala was inserted for hemodynamic suppor. The patient was started on a combination of epinephrine and norepinephrine and the patient got transferred to the intensive care unit. Currently the patient is on pressors and maintaining a appropriate blood pressure with adequate pulses in all 4 extremities On today's evaluation of 10/03/2018, echocardiogram revealed an ejection fraction of 30-35%. The patient remains on a combination of epinephrine norepinephrine. The patient is producing adequate amount of urine output. Still on Impala for hemodynamic support. Cardiac rhythm remains sinus and there has been no further episodes of any cardiac arrest for now. The patient is on a combination of aspirin and Effient and IV heparin and the patient is post stenting of the LAD. Hemodynamically improved and the patient remains intubated on mechanical ventilator. On today's evaluation of 10/04/2018, the patient would have the ampulla removed. Meanwhile hemodynamically she is doing better compared to yesterday. She remains on 0.15 g per KG per minute of norepinephrine infusion and epinephrine has been discontinued. The patient remains intubated on a mechanical ventilator. Remains on a combination of aspirin and Effient. IV heparin has been discontinued. On today's evaluation, the patient remains hemodynamically stable. We were able to wean off the pressors and removed Impala. The patient is maintaining home blood pressure. She is on a combination of aspirin and Effient. She is off the IV heparin for now. The CVP is around 11 and the patient will be receiving 2 units of packed RBC and a dose of Lasix in between. The patient remains sedated. Cardiac rhythm is sinus. 2 coronary artery disease with insertion of a stent in the LAD for a mid LAD lesion. Please refer to the cardiac catheterization report. Currently on a combination of aspirin and Effient. 3 acute hypoxic respiratory failure secondary to above, currently intubated on a mechanical ventilator, and the patient demonstrates adequate oxygenation and ventilation while being on a mechanical ventilator with an FiO2 of 40% and a PEEP of 5 4 pulmonary edema, recovered 5 hypotension secondary to above, recovered 6 diabetes mellitus, on insulin drip for blood sugar control 7 hyperlipidemia 8 diabetic peripheral neuropathy 9 acute anemia, and there has been a further drop in hemoglobin down to 5.6 probably related to blood loss at the time over the Impala catheter removal. The patient got transfused with 2 units of packed RBC. 10 acute leukocytosis, with an episodes of fever and the patient was given a dose of vancomycin and cultures of been negative and the subsequent right second is at 11.1 and the patient is afebrile. Platelet counts have dropped down to 93. 11 acute kidney injury with a creatinine of 1.75 and is stable for now. Plan The plan is to transfuse a total of 2 units of packed RBC. We'll give the patient dose of Lasix. Monitor hemodynamics. Wean off levo fed and discont inue. Monitor renal function and creatinine stable at 1.7. Sedation holiday and assess the patient's mentation and readiness to wean at a later stage. We'll continue to follow. Family has been updated on the condition. I Discussed the case with cardiology. Critically care evaluation done more than 30 minutes and work is still in progress. Time with Patient: Greater than 30
[2018-10-05 15:27] LABS: Glucose,Whole Blood 171 mg/dL (75-99)
[2018-10-05 16:15] LABS: Glucose,Whole Blood 189 mg/dL (75-99)
[2018-10-05 17:19] LABS: Glucose,Whole Blood 177 mg/dL (75-99)
[2018-10-05 17:52] LABS: Vancomycin,Random 13.6 ug/mL
[2018-10-05 18:16] LABS: Glucose,Whole Blood 165 mg/dL (75-99)
[2018-10-05 18:59] LABS: Glucose,Whole Blood 163 mg/dL (75-99)
[2018-10-05] MEDS: HEPARIN SOD,PORK IN 0.45% NACL 25,000 UNIT in 0.45% NACL 1 250ML.BAG IV SCH (19:41)
[2018-10-05] MEDS ORDERED: VANCOMYCIN 1,750 MG in SODIUM CHLORIDE 0.9% 500 ML 500 ML IVPB ONE (20:00)
[2018-10-05 20:15] LABS: Glucose,Whole Blood 159 mg/dL (75-99)
[2018-10-05 21:16] LABS: Glucose,Whole Blood 155 mg/dL (75-99)
[2018-10-05 22:16] LABS: Glucose,Whole Blood 164 mg/dL (75-99)
[2018-10-05 23:27] LABS: Glucose,Whole Blood 139 mg/dL (75-99)
[2018-10-06 00:11] LABS: Glucose,Whole Blood 137 mg/dL (75-99)
[2018-10-06 01:15] LABS: Glucose,Whole Blood 143 mg/dL (75-99)
[2018-10-06 01:45] LABS: Glucose,Whole Blood 143 mg/dL (75-99)
[2018-10-06 02:18] LABS: Glucose,Whole Blood 161 mg/dL (75-99)
[2018-10-06 03:24] LABS: Glucose,Whole Blood 141 mg/dL (75-99)
[2018-10-06 04:18] LABS: Glucose,Whole Blood 149 mg/dL (75-99)
[2018-10-06 05:14] LABS: Glucose,Whole Blood 144 mg/dL (75-99)
[2018-10-06 05:25] LABS: ABG HCO3 22 mmol/L (21-25); ABG Oxygen Saturation 98.2 % (94-97); ABG PCO2 39 mmHg (35-45); ABG PH 7.37 (7.35-7.45); ABG PO2 99 mmHg (83-108); ABG TCO2 24 mmol/L (19-24)
[2018-10-06 05:51] LABS: Anisocytosis Slight; HCT 20.2 % (34.0-46.0); MCHC 34.5 g/dL (31.0-37.0); Mean Platelet Volume 8.7; Poikilocytosis Slight; RBC 2.33 m/uL (3.80-5.40); RDW 16.2 % (11.5-15.5); WBC 10.6 k/uL (3.8-10.6)
[2018-10-06] MEDS: SODIUM CHLORIDE 0.9% 1,000 ML IV SCH ×2 (05:51→10:40)
[2018-10-06 05:54] LABS: Platelet Count 88 k/uL (150-450)
[2018-10-06 05:58] LABS: Calcium 7.8 mg/dL (8.4-10.2); Magnesium 1.8 mg/dL (1.6-2.3)
[2018-10-06 06:00] LABS: Glucose,Whole Blood 152 mg/dL (75-99)
[2018-10-06 06:13] LABS: INR 0.8 (<1.2); Prothrombin Time 9.3 sec (9.0-12.0)
[2018-10-06] MEDS: NOREPINEPHRINE 32 MG in SODIUM CHLORIDE 0.9% 218 ML IV SCH (06:27)
[2018-10-06 06:28] LABS: Partial Thromboplastin Time 21.3 sec (22.0-30.0)
--- NOTE | 2018-10-06 06:31 | XR ---
EXAMINATION TYPE: XR chest 1V portable DATE OF EXAM: 10/06/2018 HISTORY: Tube placement. REFERENCE: Previous study dated 10/05/2018. FINDINGS: The patient is ET tube and NG tube remain in place, unchanged in appearance. A left interna l jugular line is in place. Its tip is in the right atrium. There continue to be bibasilar airspace disease. I suspect small effusions, greater on the left than the right. Heart size upper limits of normal. IMPRESSION: 1. BIBASILAR AIRSPACE DISEASE. 2. BILATERAL EFFUSIONS, GREATER ON THE LEFT THAN THE RIGHT.
[2018-10-06] MEDS ORDERED: FUROSEMIDE 10 MG/ML 2 ML VIAL IV ONE ×2 (07:07→09:25)
--- NOTE | 2018-10-06 07:09 | P.PN ---
Subjective Progress Note Date: 10/06/18 Principal diagnosis: Coronary artery disease/cardiogenic shock This is a 63-year-old female patient who was admitted to the hospital yesterday and underwent a heart catheterization on successful stenting of the mid LAD with the procedure was complicated by cardiogenic shock of unknown etiology. An Impella was placed and the patient was intubated and was admitted to the intens [facility] care unit. On follow-up with the patient today, October [id number], she seems to be doing overall better. She's off vasopressors. She still sedated and still intubated on mechanical ventilation but the plan is to get her off the sedation today for possible extubation later on today. She has been maintaining normal sinus mechanism. The creatinine has been trending down. She has been making good urine as well. She has been maintaining normal sinus mechanism. The hemoglobin is 7.0. The chest x-ray was reviewed and revealed bilateral pleural effusion. I'm going to give the patient 20 mg of Lasix IV. Objective - Vital Signs Vital signs: Vital Signs Temp 37.1 F L 10/06/18 04:00 Pulse 85 10/06/18 06:00 Resp 21 10/06/18 06:00 BP 122/67 10/06/18 06:00 Pulse Ox 98 10/06/18 06:00 Intake & Output 10/05/18 10/06/18 10/06/18 18:59 06:59 18:59 Intake Total 2496.883 1392.389 Output Total 1560 880 Balance 936.883 512.389 Weight 101.3 kg Intake: IV 1224 1266 Normal Saline @ 100mls/hr 1200 1200 pressure bags 24 66 Intake, IV Titration 267.883 101.389 Amount Insulin Regular 100 unit 25.958 12.751 In Sodium Chloride 0.9% 100 ml @ Per Protocol IV .Q0M [facility]REG Rx#:[id number] Norepinephrine 32 mg In 41.925 Sodium Chloride 0.9% 218 ml @ 0.17 MCG/KG/MIN 7. 578 mls/hr IV .Q24H [facility]REG Rx#:[id number] Propofol 1,000 mg In 200.000 88.638 Empty Bag 1 bag @ Titrate IV .Q0M GREG Rx#: [id number] Tube Feeding 275 25 Blood Product 620 As-1 Unit 310 [id number] As-1 Unit 310 [id number] Other 110 Output: Urine 1560 880 Other: Voiding Method Indwelling Catheter Indwelling Catheter ABP, PAP, CO, CI - Last Documented Arterial Blood Pressure 99/47 - Constitutional General appearance: Present: no acute distress - Respiratory Respiratory: bilateral: diminished - Cardiovascular Rhythm: regular Heart sounds: normal: S1, S2 - Labs CBC & Chem 7: 10/06/18 05:25 10/06/18 05:25 Labs: Abnormal Lab Results - Last 24 Hours (Table) 10/03/18 10/05/18 10/05/18 Range/Units 19:40 07:00 08:00 WBC (3.8-10.6) k/uL RBC (3.80-5.40) m/uL Hgb (11.4-16.0) gm/dL Hct (34.0-46.0) % RDW (11.5-15.5) % Plt Count (150-450) k/uL Neutrophils # (1.3-7.7) k/uL Lymphocytes # (1.0-4.8) k/uL APTT (22.0-30.0) sec Fibrinogen 585 H (200-500) mg/dL ABG O2 Saturation (94-97) % Chloride (98-107) mmol/L BUN (7-17) mg/dL Creatinine (0.52-1.04) mg/dL Glucose (74-99) mg/dL POC Glucose (mg/dL) 150 H (75-99) mg/dL Calcium (8.4-10.2) mg/dL Lactate Dehydrogenase (313-618) U/L Crossmatch See Detail 10/05/18 10/05/18 10/05/18 Range/Units 08:00 08:00 08:00 WBC 14.6 H (3.8-10.6) k/uL RBC 1.86 L (3.80-5.40) m/uL Hgb 5.4 L* D (11.4-16.0) gm/dL Hct 16.1 L* (34.0-46.0) % RDW 16.0 H (11.5-15.5) % Plt Count 112 L (150-450) k/uL Neutrophils # (1.3-7.7) k/uL Lymphocytes # (1.0-4.8) k/uL APTT 21.3 L (22.0-30.0) sec Fibrinogen (200-500) mg/dL ABG O2 Saturation (94-97) % Chloride (98-107) mmol/L BUN (7-17) mg/dL Creatinine (0.52-1.04) mg/dL Glucose (74-99) mg/dL POC Glucose (mg/dL) (75-99) mg/dL Calcium (8.4-10.2) mg/dL Lactate Dehydrogenase 1828 H (313-618) U/L Crossmatch 10/05/18 10/05/18 10/05/18 Range/Units 08:00 08:28 09:22 WBC (3.8-10.6) k/uL RBC (3.80-5.40) m/uL Hgb (11.4-16.0) gm/dL Hct (34.0-46.0) % RDW (11.5-15.5) % Plt Count (150-450) k/uL Neutrophils # (1.3-7.7) k/uL Lymphocytes # (1.0-4.8) k/uL APTT (22.0-30.0) sec Fibrinogen (200-500) mg/dL ABG O2 Saturation (94-97) % Chloride 114 H (98-107) mmol/L BUN 49 H (7-17) mg/dL Creatinine 1.75 H (0.52-1.04) mg/dL Glucose 120 H (74-99) mg/dL POC Glucose (mg/dL) 156 H 123 H (75-99) mg/dL Calcium 7.8 L (8.4-10.2) mg/dL Lactate Dehydrogenase (313-618) U/L Crossmatch 10/05/18 10/05/18 10/05/18 Range/Units 10:01 10:58 11:59 WBC (3.8-10.6) k/uL RBC (3.80-5.40) m/uL Hgb (11.4-16.0) gm/dL Hct (34.0-46.0) % RDW (11.5-15.5) % Plt Count (150-450) k/uL Neutrophils # (1.3-7.7) k/uL Lymphocytes # (1.0-4.8) k/uL APTT (22.0-30.0) sec Fibrinogen (200-500) mg/dL ABG O2 Saturation (94-97) % Chloride (98-107) mmol/L BUN (7-17) mg/dL Creatinine (0.52-1.04) mg/dL Glucose (74-99) mg/dL POC Glucose (mg/dL) 154 H 171 H 158 H (75-99) mg/dL Calcium (8.4-10.2) mg/dL Lactate Dehydrogenase (313-618) U/L Crossmatch 10/05/18 10/05/18 10/05/18 Range/Units 12:58 13:54 14:15 WBC 11.1 H (3.8-10.6) k/uL RBC 2.55 L (3.80-5.40) m/uL Hgb 7.4 L D (11.4-16.0) gm/dL Hct 22.4 L (34.0-46.0) % RDW (11.5-15.5) % Plt Count 93 L (150-450) k/uL Neutrophils # 9.6 H (1.3-7.7) k/uL Lymphocytes # 0.8 L (1.0-4.8) k/uL APTT (22.0-30.0) sec Fibrinogen (200-500) mg/dL ABG O2 Saturation (94-97) % Chloride (98-107) mmol/L BUN (7-17) mg/dL Creatinine (0.52-1.04) mg/dL Glucose (74-99) mg/dL POC Glucose (mg/dL) 172 H 166 H (75-99) mg/dL Calcium (8.4-10.2) mg/dL Lactate Dehydrogenase (313-618) U/L Crossmatch 10/05/18 10/05/18 10/05/18 Range/Units 15:14 16:04 17:08 WBC (3.8-10.6) k/uL RBC (3.80-5.40) m/uL Hgb (11.4-16.0) gm/dL Hct (34.0-46.0) % RDW (11.5-15.5) % Plt Count (150-450) k/uL Neutrophils # (1.3-7.7) k/uL Lymphocytes # (1.0-4.8) k/uL APTT (22.0-30.0) sec Fibrinogen (200-500) mg/dL ABG O2 Saturation (94-97) % Chloride (98-107) mmol/L BUN (7-17) mg/dL Creatinine (0.52-1.04) mg/dL Glucose (74-99) mg/dL POC Glucose (mg/dL) 171 H 189 H 177 H (75-99) mg/dL Calcium (8.4-10.2) mg/dL Lactate Dehydrogenase (313-618) U/L Crossmatch 10/05/18 10/05/18 10/05/18 Range/Units 17:15 17:15 18:04 WBC (3.8-10.6) k/uL RBC (3.80-5.40) m/uL Hgb (11.4-16.0) gm/dL Hct (34.0-46.0) % RDW (11.5-15.5) % Plt Count (150-450) k/uL Neutrophils # (1.3-7.7) k/uL Lymphocytes # (1.0-4.8) k/uL APTT (22.0-30.0) sec Fibrinogen 558 H (200-500) mg/dL ABG O2 Saturation (94-97) % Chloride (98-107) mmol/L BUN (7-17) mg/dL Creatinine (0.52-1.04) mg/dL Glucose (74-99) mg/dL POC Glucose (mg/dL) 165 H (75-99) mg/dL Calcium (8.4-10.2) mg/dL Lactate Dehydrogenase 1488 H (313-618) U/L Crossmatch 10/05/18 10/05/18 10/05/18 Range/Units 18:48 20:04 21:05 WBC (3.8-10.6) k/uL RBC (3.80-5.40) m/uL Hgb (11.4-16.0) gm/dL Hct (34.0-46.0) % RDW (11.5-15.5) % Plt Count (150-450) k/uL Neutrophils # (1.3-7.7) k/uL Lymphocytes # (1.0-4.8) k/uL APTT (22.0-30.0) sec Fibrinogen (200-500) mg/dL ABG O2 Saturation (94-97) % Chloride (98-107) mmol/L BUN (7-17) mg/dL Creatinine (0.52-1.04) mg/dL Glucose (74-99) mg/dL POC Glucose (mg/dL) 163 H 159 H 155 H (75-99) mg/dL Calcium (8.4-10.2) mg/dL Lactate Dehydrogenase (313-618) U/L Crossmatch 10/05/18 10/05/18 10/05/18 Range/Units 22:04 23:14 23:59 WBC (3.8-10.6) k/uL RBC (3.80-5.40) m/uL Hgb (11.4-16.0) gm/dL Hct (34.0-46.0) % RDW (11.5-15.5) % Plt Count (150-450) k/uL Neutrophils # (1.3-7.7) k/uL Lymphocytes # (1.0-4.8) k/uL APTT (22.0-30.0) sec Fibrinogen (200-500) mg/dL ABG O2 Saturation (94-97) % Chloride (98-107) mmol/L BUN (7-17) mg/dL Creatinine (0.52-1.04) mg/dL Glucose (74-99) mg/dL POC Glucose (mg/dL) 164 H 139 H 137 H (75-99) mg/dL Calcium (8.4-10.2) mg/dL Lactate Dehydrogenase (313-618) U/L Crossmatch 10/06/18 10/06/18 10/06/18 Range/Units 01:02 01:15 01:15 WBC (3.8-10.6) k/uL RBC (3.80-5.40) m/uL Hgb (11.4-16.0) gm/dL Hct (34.0-46.0) % RDW (11.5-15.5) % Plt Count (150-450) k/uL Neutrophils # (1.3-7.7) k/uL Lymphocytes # (1.0-4.8) k/uL APTT (22.0-30.0) sec Fibrinogen 576 H (200-500) mg/dL ABG O2 Saturation (94-97) % Chloride (98-107) mmol/L BUN (7-17) mg/dL Creatinine (0.52-1.04) mg/dL Glucose (74-99) mg/dL POC Glucose (mg/dL) 143 H (75-99) mg/dL Calcium (8.4-10.2) mg/dL Lactate Dehydrogenase 1346 H (313-618) U/L Crossmatch 10/06/18 10/06/18 10/06/18 Range/Units 01:34 02:07 03:12 WBC (3.8-10.6) k/uL RBC (3.80-5.40) m/uL Hgb (11.4-16.0) gm/dL Hct (34.0-46.0) % RDW (11.5-15.5) % Plt Count (150-450) k/uL Neutrophils # (1.3-7.7) k/uL Lymphocytes # (1.0-4.8) k/uL APTT (22.0-30.0) sec Fibrinogen (200-500) mg/dL ABG O2 Saturation (94-97) % Chloride (98-107) mmol/L BUN (7-17) mg/dL Creatinine (0.52-1.04) mg/dL Glucose (74-99) mg/dL POC Glucose (mg/dL) 143 H 161 H 141 H (75-99) mg/dL Calcium (8.4-10.2) mg/dL Lactate Dehydrogenase (313-618) U/L Crossmatch 10/06/18 10/06/18 10/06/18 Range/Units 04:06 05:02 05:18 WBC (3.8-10.6) k/uL RBC (3.80-5.40) m/uL Hgb (11.4-16.0) gm/dL Hct (34.0-46.0) % RDW (11.5-15.5) % Plt Count (150-450) k/uL Neutrophils # (1.3-7.7) k/uL Lymphocytes # (1.0-4.8) k/uL APTT (22.0-30.0) sec Fibrinogen (200-500) mg/dL ABG O2 Saturation 98.2 H (94-97) % Chloride (98-107) mmol/L BUN (7-17) mg/dL Creatinine (0.52-1.04) mg/dL Glucose (74-99) mg/dL POC Glucose (mg/dL) 149 H 144 H (75-99) mg/dL Calcium (8.4-10.2) mg/dL Lactate Dehydrogenase (313-618) U/L Crossmatch 10/06/18 10/06/18 10/06/18 Range/Units 05:25 05:25 05:25 WBC (3.8-10.6) k/uL RBC 2.33 L (3.80-5.40) m/uL Hgb 7.0 L (11.4-16.0) gm/dL Hct 20.2 L (34.0-46.0) % RDW 16.2 H (11.5-15.5) % Plt Count 88 L (150-450) k/uL Neutrophils # (1.3-7.7) k/uL Lymphocytes # (1.0-4.8) k/uL APTT 21.3 L (22.0-30.0) sec Fibrinogen (200-500) mg/dL ABG O2 Saturation (94-97) % Chloride 115 H (98-107) mmol/L BUN 44 H (7-17) mg/dL Creatinine 1.53 H (0.52-1.04) mg/dL Glucose 119 H (74-99) mg/dL POC Glucose (mg/dL) (75-99) mg/dL Calcium 7.8 L (8.4-10.2) mg/dL Lactate Dehydrogenase (313-618) U/L Crossmatch 10/06/18 Range/Units 05:49 WBC (3.8-10.6) k/uL RBC (3.80-5.40) m/uL Hgb (11.4-16.0) gm/dL Hct (34.0-46.0) % RDW (11.5-15.5) % Plt Count (150-450) k/uL Neutrophils # (1.3-7.7) k/uL Lymphocytes # (1.0-4.8) k/uL APTT (22.0-30.0) sec Fibrinogen (200-500) mg/dL ABG O2 Saturation (94-97) % Chloride (98-107) mmol/L BUN (7-17) mg/dL Creatinine (0.52-1.04) mg/dL Glucose (74-99) mg/dL POC Glucose (mg/dL) 152 H (75-99) mg/dL Calcium (8.4-10.2) mg/dL Lactate Dehydrogenase (313-618) U/L Crossmatch Microbiology - Last 24 Hours (Table) 10/03/18 20:07 Blood Culture - Preliminary Blood No Growth after 48 hours 10/03/18 20:07 Blood Culture - Preliminary Blood No Growth after 48 hours 10/05/18 01:18 Gram Stain - Preliminary Sputum Sputum Culture - Preliminary Assessment and Plan Assessment: Assessment #1 coronary artery disease and status post PCI of the LAD #2 cardiogenic shock requiring mechanical support #3 acute respiratory failure #4 acute renal failure #5 anemia Plan #1 continue dual antiplatelet therapy #2 give the patient one dose of Lasix IV at 20 mg #3 continue monitor the kidney function and electrolytes and hemoglobin #4 blood transfusion if the hemoglobin drops below 7 #5 consider adding metoprolol as well as a statin in the next few days #6 repeat the echocardiogram down the line #7 follow-up with the patient.
[2018-10-06] MEDS: IPRATROPIUM-ALBUTEROL 3 ML NEB INHALATION SCH ×4 (07:26→19:35)
[2018-10-06] MEDS: PROPOFOL 1,000 MG in EMPTY BAG 1 BAG IV SCH (07:45)
[2018-10-06] MEDS: HYDROmorphone 1 MG/ML 1 ML SYRINGE IVP PRN ×3 (08:00→22:41)
[2018-10-06 08:07] LABS: Glucose,Whole Blood 143 mg/dL (75-99)
[2018-10-06] MEDS: PANTOPRAZOLE 40 MG/10 ML VIAL IVP SCH (08:12)
[2018-10-06] MEDS: CHLORHEXIDINE GLUCONATE 15 ML CUP MUCOUS MEM SCH ×2 (08:12→20:31)
[2018-10-06] MEDS: ASPIRIN 81 MG PO SCH (08:12)
[2018-10-06] MEDS: PRASUGREL 10 MG TAB PO SCH (08:12)
[2018-10-06] MEDS: MAGNESIUM SULFATE-D5W PMX 1 GM in DEXTROSE/WATER 1 100ML.BAG IVPB SCH ×2 (08:54→09:48)
[2018-10-06] MEDS: INSULIN REGULAR 100 UNIT in SODIUM CHLORIDE 0.9% 100 ML IV SCH (09:13)
[2018-10-06 09:22] LABS: Glucose,Whole Blood 160 mg/dL (75-99)
[2018-10-06] MEDS ORDERED: FUROSEMIDE 10 MG/ML 2 ML VIAL ONE (09:26)
[2018-10-06 10:09] LABS: Glucose,Whole Blood 158 mg/dL (75-99)
[2018-10-06 11:09] LABS: Glucose,Whole Blood 156 mg/dL (75-99)
[2018-10-06 12:18] LABS: Glucose,Whole Blood 136 mg/dL (75-99)
[2018-10-06 13:21] LABS: ABG Base Excess -2.4 mmol/L; ABG HCO3 23 mmol/L (21-25); ABG Oxygen Saturation 97.4 % (94-97); ABG PCO2 42 mmHg (35-45); ABG PH 7.35 (7.35-7.45); ABG PO2 95 mmHg (83-108); ABG TCO2 24 mmol/L (19-24)
--- NOTE | 2018-10-06 13:32 | P.PN ---
Subjective Progress Note Date: 10/06/18 A 63-year-old female patient with known history of coronary artery disease, hypertension and diabetes mellitus and hyperlipidemia and peripheral neuropathy. She is an ex-smoker. The patient came in for elective cardiac catheterization during which the patient was found to have a mid LAD lesion. During the procedure, the patient went into cardiac arrest. As the angioplasty was being performed, the patient developed profound hypotension and went into a PEA. Note that the patient continued to have on and off hypotension and cardiac arrest for approximately 60 minutes in the [employer]. During the process, the LAD stent was the fluid, resuscitation was done during which the patient received CPR and defibrillation. Pressors were initiated. Patient was intubated. Please refer to the cardiology note regarding the details of the cardiac arrest and resuscitation procedure. Note that in and pallor was also inserted to augment her cardiac output and hemodynamics. I saw the patient immediately after she arrived to the intensive care unit. She was withdrawing to painful stimulation. I had to put that on propofol for sedation and currently propofol is running. 40 g per KG per minute. The patient was intubated on a mechanical ventilator. I noted the blood gases and the patient had a component of respiratory metabolic acidosis. I made the appropriate vent changes and the patient is currently on a VC plus mode with a tidal volume of 450, respiratory rate of 26, FiO2 of 100% with a PEEP of 7. The most recent blood gas showed a pH of 7.29 with a pCO2 of 30 and pO2 of 21 and this was on the fentanyl 100%. FiO2 will be gradually weaned off. Chest x-ray was done and ET tube was in the proximal right mainstem. The tube was withdrawn by around 2 cm. Chest x-ray was consistent with pulmonary edema and the patient was having some frothy rest or secretions in the orotracheal tube. I was informed by cardiology that the patient did not have any coronary dissection or perforation. There was no evidence of a tamponade. No valvular disruption. Impala was in place in the right femoral artery. The patient also had a sheath in the right femoral vein. She has adequate pulses in all 4 extremities. The patient was maintained on a combination of factors including 3 g of nore pinephrine infusion and 10 g of levo fed infusion. Urine output has been no other of 30 mL an hour. The patient has been afebrile. She is on dual platelet agents including aspirin and Effient. IV heparin will be also initiated. On 10/03/2018, follow-up. The patient is still intubated on a mechanical ventilator. The patient remains on Impala for hemodynamic support. Clinically she is well sedated and she is calm and comfortable on 50 g of propofol. The patient is intubated on a mechanical ventilator and FiO2 has been drop down to 50% and PEEP is still at 7. I reviewed today's blood gas and the patient is adequate oxygenation with a pO2 of 184. The pH is at 7.47 with a pCO2 of 31. Based on this, drop the FiO2 down to 40% and drop the PEEP down to 5. Chest x- ray shows adequate expansion of both lungs. ET tube is in a good location. The patient has a triple lumen catheter in the left IJ and later on during the day there was some oozing at the catheter insertion site probably related to the use of IV heparin. Hemoglobin dropped down to 8.6 and was still monitoring the he moglobin. Appropriate dressing has been applied to the left IJ puncture site. The patient is on a combination of pressors and the patient is currently on examination of norepinephrine infusion and epinephrine the dose being titrated to maintain a mean artery pressure above 65. Creatinine is up to 1.4. The patient is producing around 30-40 mL an hour of urine output. She is afebrile. Impala catheter is still in place and the patient is receiving adequate hemodynamic support. CVP earlier was 5 and the patient was given a bolus of 500 mL and the patient is also receiving maintenance fluids of 75 mL an hour. The patient remains on a combination of aspirin, Effient and the patient is also on IV heparin. No fever. No seizure activity. The patient is still sensing painful stimulation she withdraws to painful stimulation all 4 extremities. Pupils are 4 mm in size and reactive to light. The white cell count is up to 22. On 10/04/2018 I'm seeing this patient for a follow-up. The patient is well sedated and patient's, comfortable likely distress. The patient is still on a mechanical ventilator with a vent setting being an FiO2 of 40% with a PEEP of 5 and a tidal volume of 450. The chest x-ray today shows no acute abnormalities. The patient has an ET tube in place. No significant edema pneumonia or effusions. The blood gas showed a pH of 7.39 with a pCO2 of 38 and pO2 of 117. This was done and FiO2 of 40%. CVP is around 8. The patient is on norepinephrine infusion at 0.15 g per KG per minute. Epinephrine drip was discontinued. The plan is to remove the Impala today as the patient is improved hemodynamically. Noted the patient was having some oozing of blood from the puncture site including left IJ and the puncture site in the right femoral area where the femoral sheath and the Impala catheter was inserted. Amount of bleeding is minimal. The patient received 2 units of packed RBC yesterday. Hemoglobin today is at 7.6. Patient will grade temperature spike yesterday and for that reason cultures were sent and the patient was given a dose of vancomyc in. White cell count is at 16.3. Otherwise, he is receiving tube feeds at the rate of 25 mL an hour of vital high protein. IV heparin has been discontinued. She remains on a combination of aspirin and Effient. She is on insulin drip for blood sugar control. No other significant events overnight. Atelectatic discussion with cardiology. The plan is to remove the Impala today. Coagulation profile is within normal limits. Platelet count remains at 143. On 10/05/2018 the patient is sedated, comfortable on a mechanical ventilator. Hemodynamically the patient is doing well off Impala. Epinephrine drip. Norepinephrine infusion is running at a low rate and this can be gradually weaned off and discontinued hopefully today. IV fluids are running at the rate of 100 mL an hour of normal saline. The patient has adequate urine output. CVP is at 11. Hemoglobin from this morning was at 5.4 and this is expected to be related to the blood loss that occurred at the time of removal of the Impala as I was told that there was some bleeding encountered while doing this intervention. In any rate, there is no hematoma in the thigh. No active bleeding from the puncture sites whether it's in the right groin or in the left IJ area. The patient will be receiving a total of 2 units of packed RBC. No fever. No chills. Cultures of been negative. Cardiac rhythm is still sinus. He remains on a mechanical ventilator. Vent settings are essentially the same and the patient remains on assist control mode of ventilation with a tidal volume of 450, FiO2 of 40% with a PEEP of 5 and the rate of extreme. Chest x- ray shows no acute abnormalities. The patient is tolerating her tube feeds. The plan is to get the patient packed RBC transfusion and following that the patient will be receiving a spontaneous breathing trial to assess her candidacy for further weaning off the mechanical ventilator. On 10/06/2018, seeing this patient for a follow-up. The patient doing extremely well. She is on no pressors for now. Earlier this morning she was given a dose of Lasix 20 mg IV push and she is producing excellent urine output. She is taken off sedation the patient is gradually waking up and following commands. She is moving all 4 extremities. I am in the process of taking this patient off sedation and if she is fully awake, weaning parameters will be checked and the patient will be considered for extubation today. Note that she is hemodynamically stable. No signs of bleeding. Hemoglobin is stable. No fever. No chills. Her hemoglobin stable at 7.0. Cardiac rhythm is normal sinus mechanism. She seems to be recovering from a cardiogenic shock and the Impala and the presence of been all discontinued. The sputum sample is positive for Haemophilus influenza. She is on a combination of aspirin and Effient. Chest x-ray showing some small effusion the lung bases and atelectasis. Otherwise the chest x-ray is within normal limits. IV heparin has been discontinued. Objective - Vital Signs Vital signs: Vital Signs Temp 97.9 F 10/06/18 12:00 Pulse 96 10/06/18 13:00 Resp 26 H 10/06/18 13:00 BP 159/81 10/06/18 13:00 Pulse Ox 97 10/06/18 13:00 Intake & Output 10/05/18 10/06/18 10/06/18 18:59 06:59 18:59 Intake Total 2496.883 1403.751 672.811 Output Total 0939 051 7196 Balance 936.883 523.751 -1102.189 Weight 101.3 kg Intake: IV 1224 1266 398 Normal Saline @ 100mls/hr 1200 1200 380 pressure bags 24 66 18 Intake, IV Titration 267.883 112.751 139.811 Amount Insulin Regular 100 unit 25.958 12.751 5.976 In Sodium Chloride 0.9% 100 ml @ Per Protocol IV .Q0M COUNT INCLUDES THE [facility] Rx#:[id number] Magnesium Sulfate-D5w Pmx 100 1 gm In Dextrose/Water 1 100ml.bag @ 100 mls/hr IVPB Q1H [facility] Rx#: [id number] Norepinephrine 32 mg In 41.925 Sodium Chloride 0.9% 218 ml @ 0.17 MCG/KG/MIN 7. 578 mls/hr IV .Q24H [facility] Rx#:[id number] Propofol 1,000 mg In 200.000 100.000 33.835 Empty Bag 1 bag @ Titrate IV .Q0M [facility] Rx#: [id number] Tube Feeding 275 25 75 Blood Product 620 Rc As-1 Unit 310 [id number] Rc As-1 Unit 310 [id number] Other 110 60 Output: Urine 3303 792 9204 Other: Voiding Method Indwelling Catheter Indwelling Catheter Indwelling Catheter ABP, PAP, CO, CI - Last Documented Arterial Blood Pressure 99/47 - Exam Gen. appearance the patient is sedated, comfortable active distress. The patient is currently taken off propofol and the patient is being given a sedation holiday. Head exam was generally normal. There was no scleral icterus or corneal arcus. Mucous membranes were moist. Neck was supple and without jugular venous distension, thyromegaly, or carotid bruits. Carotids were easily palpable bilaterally. There was no adenopathy. The patient has a left IJ triple-lumen catheter with minimal amount of blood oozing along the puncture site and appropriate dressing has been applied. No active bleeding for now. Lungs sounds are diminished bilaterally and there are some scattered rhonchi. There is some frothy secretions with orotracheal tube. Cardiac exam revealed the PMI to be normally situated and sized. The rhythm was regular and no extrasystoles were noted during several minutes of auscultation. The first and second heart sounds were normal and physiologic splitting of the second heart sound was noted. There were no murmurs, rubs, clicks, or gallops. Abdominal exam revealed normal bowel sounds. The abdomen was soft, non-tender, and without masses, organomegaly, or appreciable enlargement of the abdominal aorta. Extremities: The patient diminished yet palpable pulses all 4 extremities. No cyanosis or clubbing. The puncture sites are all within normal limits. The patient has developed some increased edema in her upper extremities and some in lower extremities bilaterally. Examination of the skin revealed no evidence of significant rashes, suspicious appearing nevi or other concerning lesions. Neurologically the patient withdraws to painful stimulation. Pupils are equal and symmetrical.. No facial asymmetry. No Babinski. No clonus. No seizure activity noted. - Labs CBC & Chem 7: 10/06/18 05:25 10/06/18 05:25 Labs: Abnormal Lab Results - Last 24 Hours (Table) 10/03/18 10/05/18 10/05/18 Range/Units 19:40 13:54 14:15 WBC 11.1 H (3.8-10.6) k/uL RBC 2.55 L (3.80-5.40) m/uL Hgb 7.4 L D (11.4-16.0) gm/dL Hct 22.4 L (34.0-46.0) % RDW (11.5-15.5) % Plt Count 93 L (150-450) k/uL Neutrophils # 9.6 H (1.3-7.7) k/uL Lymphocytes # 0.8 L (1.0-4.8) k/uL APTT (22.0-30.0) sec Fibrinogen (200-500) mg/dL ABG O2 Saturation (94-97) % Chloride (98-107) mmol/L BUN (7-17) mg/dL Creatinine (0.52-1.04) mg/dL Glucose (74-99) mg/dL POC Glucose (mg/dL) 166 H (75-99) mg/dL Calcium (8.4-10.2) mg/dL Lactate Dehydrogenase (313-618) U/L Crossmatch See Detail 10/05/18 10/05/18 10/05/18 Range/Units 15:14 16:04 17:08 WBC (3.8-10.6) k/uL RBC (3.80-5.40) m/uL Hgb (11.4-16.0) gm/dL Hct (34.0-46.0) % RDW (11.5-15.5) % Plt Count (150-450) k/uL Neutrophils # (1.3-7.7) k/uL Lymphocytes # (1.0-4.8) k/uL APTT (22.0-30.0) sec Fibrinogen (200-500) mg/dL ABG O2 Saturation (94-97) % Chloride (98-107) mmol/L BUN (7-17) mg/dL Creatinine (0.52-1.04) mg/dL Glucose (74-99) mg/dL POC Glucose (mg/dL) 171 H 189 H 177 H (75-99) mg/dL Calcium (8.4-10.2) mg/dL Lactate Dehydrogenase (313-618) U/L Crossmatch 10/05/18 10/05/18 10/05/18 Range/Units 17:15 17:15 18:04 WBC (3.8-10.6) k/uL RBC (3.80-5.40) m/uL Hgb (11.4-16.0) gm/dL Hct (34.0-46.0) % RDW (11.5-15.5) % Plt Count (150-450) k/uL Neutrophils # (1.3-7.7) k/uL Lymphocytes # (1.0-4.8) k/uL APTT (22.0-30.0) sec Fibrinogen 558 H (200-500) mg/dL ABG O2 Saturation (94-97) % Chloride (98-107) mmol/L BUN (7-17) mg/dL Creatinine (0.52-1.04) mg/dL Glucose (74-99) mg/dL POC Glucose (mg/dL) 165 H (75-99) mg/dL Calcium (8.4-10.2) mg/dL Lactate Dehydrogenase 1488 H (313-618) U/L Crossmatch 10/05/18 10/05/18 10/05/18 Range/Units 18:48 20:04 21:05 WBC (3.8-10.6) k/uL RBC (3.80-5.40) m/uL Hgb (11.4-16.0) gm/dL Hct (34.0-46.0) % RDW (11.5-15.5) % Plt Count (150-450) k/uL Neutrophils # (1.3-7.7) k/uL Lymphocytes # (1.0-4.8) k/uL APTT (22.0-30.0) sec Fibrinogen (200-500) mg/dL ABG O2 Saturation (94-97) % Chloride (98-107) mmol/L BUN (7-17) mg/dL Creatinine (0.52-1.04) mg/dL Glucose (74-99) mg/dL POC Glucose (mg/dL) 163 H 159 H 155 H (75-99) mg/dL Calcium (8.4-10.2) mg/dL Lactate Dehydrogenase (313-618) U/L Crossmatch 10/05/18 10/05/18 10/05/18 Range/Units 22:04 23:14 23:59 WBC (3.8-10.6) k/uL RBC (3.80-5.40) m/uL Hgb (11.4-16.0) gm/dL Hct (34.0-46.0) % RDW (11.5-15.5) % Plt Count (150-450) k/uL Neutrophils # (1.3-7.7) k/uL Lymphocytes # (1.0-4.8) k/uL APTT (22.0-30.0) sec Fibrinogen (200-500) mg/dL ABG O2 Saturation (94-97) % Chloride (98-107) mmol/L BUN (7-17) mg/dL Creatinine (0.52-1.04) mg/dL Glucose (74-99) mg/dL POC Glucose (mg/dL) 164 H 139 H 137 H (75-99) mg/dL Calcium (8.4-10.2) mg/dL Lactate Dehydrogenase (313-618) U/L Crossmatch 10/06/18 10/06/18 10/06/18 Range/Units 01:02 01:15 01:15 WBC (3.8-10.6) k/uL RBC (3.80-5.40) m/uL Hgb (11.4-16.0) gm/dL Hct (34.0-46.0) % RDW (11.5-15.5) % Plt Count (150-450) k/uL Neutrophils # (1.3-7.7) k/uL Lymphocytes # (1.0-4.8) k/uL APTT (22.0-30.0) sec Fibrinogen 576 H (200-500) mg/dL ABG O2 Saturation (94-97) % Chloride (98-107) mmol/L BUN (7-17) mg/dL Creatinine (0.52-1.04) mg/dL Glucose (74-99) mg/dL POC Glucose (mg/dL) 143 H (75-99) mg/dL Calcium (8.4-10.2) mg/dL Lactate Dehydrogenase 1346 H (313-618) U/L Crossmatch 10/06/18 10/06/18 10/06/18 Range/Units 01:34 02:07 03:12 WBC (3.8-10.6) k/uL RBC (3.80-5.40) m/uL Hgb (11.4-16.0) gm/dL Hct (34.0-46.0) % RDW (11.5-15.5) % Plt Count (150-450) k/uL Neutrophils # (1.3-7.7) k/uL Lymphocytes # (1.0-4.8) k/uL APTT (22.0-30.0) sec Fibrinogen (200-500) mg/dL ABG O2 Saturation (94-97) % Chloride (98-107) mmol/L BUN (7-17) mg/dL Creatinine (0.52-1.04) mg/dL Glucose (74-99) mg/dL POC Glucose (mg/dL) 143 H 161 H 141 H (75-99) mg/dL Calcium (8.4-10.2) mg/dL Lactate Dehydrogenase (313-618) U/L Crossmatch 10/06/18 10/06/18 10/06/18 Range/Units 04:06 05:02 05:18 WBC (3.8-10.6) k/uL RBC (3.80-5.40) m/uL Hgb (11.4-16.0) gm/dL Hct (34.0-46.0) % RDW (11.5-15.5) % Plt Count (150-450) k/uL Neutrophils # (1.3-7.7) k/uL Lymphocytes # (1.0-4.8) k/uL APTT (22.0-30.0) sec Fibrinogen (200-500) mg/dL ABG O2 Saturation 98.2 H (94-97) % Chloride (98-107) mmol/L BUN (7-17) mg/dL Creatinine (0.52-1.04) mg/dL Glucose (74-99) mg/dL POC Glucose (mg/dL) 149 H 144 H (75-99) mg/dL Calcium (8.4-10.2) mg/dL Lactate Dehydrogenase (313-618) U/L Crossmatch 10/06/18 10/06/18 10/06/18 Range/Units 05:25 05:25 05:25 WBC (3.8-10.6) k/uL RBC 2.33 L (3.80-5.40) m/uL Hgb 7.0 L (11.4-16.0) gm/dL Hct 20.2 L (34.0-46.0) % RDW 16.2 H (11.5-15.5) % Plt Count 88 L (150-450) k/uL Neutrophils # (1.3-7.7) k/uL Lymphocytes # (1.0-4.8) k/uL APTT 21.3 L (22.0-30.0) sec Fibrinogen (200-500) mg/dL ABG O2 Saturation (94-97) % Chloride 115 H (98-107) mmol/L BUN 44 H (7-17) mg/dL Creatinine 1.53 H (0.52-1.04) mg/dL Glucose 119 H (74-99) mg/dL POC Glucose (mg/dL) (75-99) mg/dL Calcium 7.8 L (8.4-10.2) mg/dL Lactate Dehydrogenase (313-618) U/L Crossmatch 10/06/18 10/06/18 10/06/18 Range/Units 05:49 07:55 09:10 WBC (3.8-10.6) k/uL RBC (3.80-5.40) m/uL Hgb (11.4-16.0) gm/dL Hct (34.0-46.0) % RDW (11.5-15.5) % Plt Count (150-450) k/uL Neutrophils # (1.3-7.7) k/uL Lymphocytes # (1.0-4.8) k/uL APTT (22.0-30.0) sec Fibrinogen (200-500) mg/dL ABG O2 Saturation (94-97) % Chloride (98-107) mmol/L BUN (7-17) mg/dL Creatinine (0.52-1.04) mg/dL Glucose (74-99) mg/dL POC Glucose (mg/dL) 152 H 143 H 160 H (75-99) mg/dL Calcium (8.4-10.2) mg/dL Lactate Dehydrogenase (313-618) U/L Crossmatch 10/06/18 10/06/18 10/06/18 Range/Units 09:55 10:58 12:06 WBC (3.8-10.6) k/uL RBC (3.80-5.40) m/uL Hgb (11.4-16.0) gm/dL Hct (34.0-46.0) % RDW (11.5-15.5) % Plt Count (150-450) k/uL Neutrophils # (1.3-7.7) k/uL Lymphocytes # (1.0-4.8) k/uL APTT (22.0-30.0) sec Fibrinogen (200-500) mg/dL ABG O2 Saturation (94-97) % Chloride (98-107) mmol/L BUN (7-17) mg/dL Creatinine (0.52-1.04) mg/dL Glucose (74-99) mg/dL POC Glucose (mg/dL) 158 H 156 H 136 H (75-99) mg/dL Calcium (8.4-10.2) mg/dL Lactate Dehydrogenase (313-618) U/L Crossmatch Microbiology - Last 24 Hours (Table) 10/05/18 01:18 Gram Stain - Preliminary Sputum Sputum Culture - Final Haemophilus species 10/03/18 20:07 Blood Culture - Preliminary Blood No Growth after 48 hours 10/03/18 20:07 Blood Culture - Preliminary Blood No Growth after 48 hours Assessment and Plan Plan: 1 acute cardiac arrest during cardiac catheterization and stenting of the LAD. The patient had on and off hypotension cardiac arrest including V. fib and PEA during the resuscitation efforts. Note that the patient was obtaining blood pressure and pulse in between these episodes of cardiac arrest in the formerly [facility] scitation process was around 60 minutes at least. Ultimately the patient had a stable pressure. Impala was inserted for hemodynamic suppor. The patient was started on a combination of epinephrine and norepinephrine and the patient got transferred to the intensive care unit. Currently the patient is on pressors and maintaining a appropriate blood pressure with adequate pulses in all 4 extremities On today's evaluation of 10/06/2018, the patient is doing extremely well. The patient is recovering from her cardiac arrest and cardiogenic shock. Impala has been removed. Patient is currently off pressors. The patient was started on diuretics. She was taken off sedation and we will assess his readiness to wean and this will largely depend on her mental status and her weaning parameters. 2 coronary artery disease with insertion of a stent in the LAD for a mid LAD lesion. Please refer to the cardiac catheterization report. Currently on a combination of aspirin and Effient. 3 acute hypoxic respiratory failure secondary to above, requiring intubation mechanical ventilation 4 pulmonary edema, recovered 5 hypotension secondary to above, recovered 6 diabetes mellitus, on insulin drip for blood sugar control 7 hyperlipidemia 8 diabetic peripheral neuropathy 9 acute anemia, and there has been a further drop in hemoglobin down to 5.6 probably related to blood loss at the time over the Impala catheter removal. The patient got transfused with 2 units of packed RBC. Hemoglobin stable for now 10 acute leukocytosis, with an episodes of fever , recovered and the patient was cell count is at 10.6 11 acute kidney injury with a creatinine of 1.5, improving Plan The plan is to complete a sedation holiday. Assessment patient's mental status. Assess the patient's weaning parameters. Consider extubation if all these parameters are satisfactory and the patient is found to be a good candidate for extubation. We'll give the patient another dose of Lasix. We'll continue to follow. As for the Haemophilus influenza was in the sputum, the patient will be given Augmentin 875 mg twice a day. Chest x-ray will be monitored. We'll hold tube feeds for now. Monitor renal function. Family is at the bedside. There is a critically care evaluation was done in more than 30 minutes. Family has been updated on her condition. Time with Patient: Greater than 30
[2018-10-06 14:19] LABS: Glucose,Whole Blood 139 mg/dL (75-99)
[2018-10-06 17:20] LABS: Glucose,Whole Blood 165 mg/dL (75-99)
[2018-10-06 18:17] LABS: Glucose,Whole Blood 144 mg/dL (75-99)
[2018-10-06] MEDS: HEPARIN SOD,PORK IN 0.45% NACL 25,000 UNIT in 0.45% NACL 1 250ML.BAG IV SCH (19:47)
[2018-10-06 20:25] LABS: Glucose,Whole Blood 118 mg/dL (75-99)
[2018-10-06] MEDS: AMOXIC-POT CLAV 875-125MG 1 EACH TAB PO SCH (21:37)
[2018-10-06 22:18] LABS: Glucose,Whole Blood 87 mg/dL (75-99)
[2018-10-07 00:14] LABS: Glucose,Whole Blood 89 mg/dL (75-99)
[2018-10-07 01:34] LABS: HCT 21.8 % (34.0-46.0); HGB 7.3 gm/dL (11.4-16.0); MCH 29.1 pg (25.0-35.0); MCHC 33.3 g/dL (31.0-37.0); MCV 87.3 fL (80.0-100.0); Mean Platelet Volume 8.5; Platelet Count 111 k/uL (150-450); Poikilocytosis Slight; RDW 15.9 % (11.5-15.5)
[2018-10-07 01:48] LABS: Calcium 7.6 mg/dL (8.4-10.2)
[2018-10-07 01:49] LABS: Potassium 4.1 mmol/L (3.5-5.1)
[2018-10-07] MEDS: ALPRAZolam 0.25 MG TAB PO PRN (01:54)
[2018-10-07] MEDS: AMOXIC-POT CLAV 875-125MG 1 EACH TAB PO SCH ×3 (01:54→20:35)
[2018-10-07 02:00] LABS: Glucose,Whole Blood 86 mg/dL (75-99)
--- NOTE | 2018-10-07 02:02 | XR ---
EXAM: XR Chest, 1 View CLINICAL HISTORY: ITS.REASON XR Reason: pulmonary edema, recent extubation TECHNIQUE: Frontal view of the chest. COMPARISON: Chest x-ray dated 10/06/2018. FINDINGS: Lungs: Slightly worsened bilateral diffuse patchy and interstitial opacities may represent edema and/or pneumonia. Unchanged mild obscuration of both costophrenic angles may represent atelectasis or small effusions. Pleural space: Unremarkable. No pneumothorax. Heart: Reidentified moderate cardiomegaly. Mediastinum: Unremarkable. Bones/joints: Unremarkable. Tubes, lines and devices: Left-sided central venous catheter is unchanged in position with tip projecting over the right atrium. IMPRESSION: 1. Slightly worsened bilateral diffuse patchy and interstitial opacities may represent edema and/or pneumonia. 2. Unchanged mild obscuration of both costophrenic angles may represent atelectasis or small effusions.
[2018-10-07 04:37] LABS: Anisocytosis Slight; HCT 23.6 % (34.0-46.0); HGB 7.8 gm/dL (11.4-16.0); Hypochromasia Slight; MCH 29.6 pg (25.0-35.0); MCHC 33.1 g/dL (31.0-37.0); MCV 89.2 fL (80.0-100.0); Mean Platelet Volume 9.3; Platelet Count 125 k/uL (150-450); Poikilocytosis Slight; RBC 2.64 m/uL (3.80-5.40); WBC 12.9 k/uL (3.8-10.6)
[2018-10-07] MEDS: NOREPINEPHRINE 32 MG in SODIUM CHLORIDE 0.9% 218 ML IV SCH (04:44)
[2018-10-07 04:56] LABS: INR 0.8 (<1.2); Partial Thromboplastin Time 22.4 sec (22.0-30.0); Prothrombin Time 9.2 sec (9.0-12.0)
[2018-10-07 05:06] LABS: Calcium 8.3 mg/dL (8.4-10.2); Magnesium 1.8 mg/dL (1.6-2.3); Potassium 3.6 mmol/L (3.5-5.1)
[2018-10-07] MEDS ORDERED: Potassium Replacement Protocol 1 EACH MISC MISCELLANE PRN (05:15)
[2018-10-07] MEDS ORDERED: Magnesium Replacement Protocol 1 EACH MISC MISCELLANE PRN (05:15)
[2018-10-07] MEDS: HYDROmorphone 1 MG/ML 1 ML SYRINGE IVP PRN ×2 (05:16→16:24)
[2018-10-07] MEDS: MAGNESIUM SULFATE-D5W PMX 1 GM in DEXTROSE/WATER 1 100ML.BAG IVPB SCH ×2 (05:29→06:39)
[2018-10-07] MEDS: POTASSIUM CHLORIDE 10 MEQ in WATER FOR INJECTION 1 100ML.BAG IVPB SCH ×2 (05:47→06:39)
[2018-10-07 06:14] LABS: Glucose,Whole Blood 86 mg/dL (75-99)
[2018-10-07] MEDS: IPRATROPIUM-ALBUTEROL 3 ML NEB INHALATION SCH ×4 (07:26→19:56)
--- NOTE | 2018-10-07 07:43 | P.PN ---
Subjective Progress Note Date: 10/07/18 Principal diagnosis: Coronary artery disease/cardiogenic shock This is a 63-year-old female patient who was admitted to the hospital yesterday and underwent a heart catheterization on successful stenting of the mid LAD with the procedure was complicated by cardiogenic shock of unknown etiology. An Impella was placed and the patient was intubated and was admitted to the intens [facility] care unit. On follow-up with the patient today, October [id number], she was extubated yesterday. She was given some Dilaudid this morning and she is quite lethargic. Otherwise she is hemodynamically stable. On examination she seems to be congested. I'm going to start the patient on Lasix IV at 40 mg twice a day, continue monitor the kidney function and electrolytes, start the patient on metoprolol small dose with 12.5 mg by mouth twice a day, and also obtain a limited echocardiogram to evaluate for improvement in the LV function. Objective - Vital Signs Vital signs: Vital Signs Temp 98 F 10/07/18 04:00 Pulse 90 10/07/18 07:28 Resp 17 10/07/18 07:00 BP 134/70 10/07/18 07:00 Pulse Ox 100 10/07/18 07:28 Intake & Output 10/06/18 10/07/18 10/07/18 18:59 06:59 18:59 Intake Total 787.811 455.85 223 Output Total 2845 660 50 Balance -2057.189 -204.15 173 Intake: IV 513 453 223 Magnesium Sulfate-D5w Pmx 100 100 1 gm In Dextrose/Water 1 100ml.bag @ 100 mls/hr IVPB Q1H [facility] Rx#: [id number] Normal Saline @ 100mls/hr 480 220 20 Potassium Chloride 10 meq 100 100 In Water For Injection 1 100ml.bag @ 100 mls/hr IVPB Q1H [facility] Rx#: [id number] pressure bags 33 33 3 Intake, IV Titration 139.811 2.85 Amount Insulin Regular 100 unit 5.976 2.85 In Sodium Chloride 0.9% 100 ml @ Per Protocol IV .Q0M [facility] Rx#:[id number] Magnesium Sulfate-D5w Pmx 100 1 gm In Dextrose/Water 1 100ml.bag @ 100 mls/hr IVPB Q1H [facility] Rx#: [id number] Propofol 1,000 mg In 33.835 Empty Bag 1 bag @ Titrate IV .Q0M [facility] Rx#: [id number] Tube Feeding 75 Other 60 Output: Urine 2845 660 50 Other: Voiding Method Indwelling Catheter Indwelling Catheter ABP, PAP, CO, CI - Last Documented Arterial Blood Pressure 99/47 - Constitutional General appearance: Present: no acute distress - Respiratory Respiratory: bilateral: rhonchi - Cardiovascular Rhythm: regular Heart sounds: normal: S1, S2 - Labs CBC & Chem 7: 10/07/18 04:20 10/07/18 04:20 Labs: Abnormal Lab Results - Last 24 Hours (Table) 10/06/18 10/06/18 10/06/18 Range/Units 07:55 09:10 09:55 WBC (3.8-10.6) k/uL RBC (3.80-5.40) m/uL Hgb (11.4-16.0) gm/dL Hct (34.0-46.0) % RDW (11.5-15.5) % Plt Count (150-450) k/uL ABG O2 Saturation (94-97) % Chloride (98-107) mmol/L BUN (7-17) mg/dL Creatinine (0.52-1.04) mg/dL Glucose (74-99) mg/dL POC Glucose (mg/dL) 143 H 160 H 158 H (75-99) mg/dL Calcium (8.4-10.2) mg/dL 10/06/18 10/06/18 10/06/18 Range/Units 10:58 12:06 13:19 WBC (3.8-10.6) k/uL RBC (3.80-5.40) m/uL Hgb (11.4-16.0) gm/dL Hct (34.0-46.0) % RDW (11.5-15.5) % Plt Count (150-450) k/uL ABG O2 Saturation 97.4 H (94-97) % Chloride (98-107) mmol/L BUN (7-17) mg/dL Creatinine (0.52-1.04) mg/dL Glucose (74-99) mg/dL POC Glucose (mg/dL) 156 H 136 H (75-99) mg/dL Calcium (8.4-10.2) mg/dL 10/06/18 10/06/18 10/06/18 Range/Units 13:55 16:54 18:05 WBC (3.8-10.6) k/uL RBC (3.80-5.40) m/uL Hgb (11.4-16.0) gm/dL Hct (34.0-46.0) % RDW (11.5-15.5) % Plt Count (150-450) k/uL ABG O2 Saturation (94-97) % Chloride (98-107) mmol/L BUN (7-17) mg/dL Creatinine (0.52-1.04) mg/dL Glucose (74-99) mg/dL POC Glucose (mg/dL) 139 H 165 H 144 H (75-99) mg/dL Calcium (8.4-10.2) mg/dL 10/06/18 10/07/18 10/07/18 Range/Units 20:13 01:07 01:07 WBC 12.0 H (3.8-10.6) k/uL RBC 2.50 L (3.80-5.40) m/uL Hgb 7.3 L (11.4-16.0) gm/dL Hct 21.8 L (34.0-46.0) % RDW 15.9 H (11.5-15.5) % Plt Count 111 L (150-450) k/uL ABG O2 Saturation (94-97) % Chloride 113 H (98-107) mmol/L BUN 39 H (7-17) mg/dL Creatinine 1.37 H (0.52-1.04) mg/dL Glucose 72 L (74-99) mg/dL POC Glucose (mg/dL) 118 H (75-99) mg/dL Calcium 7.6 L (8.4-10.2) mg/dL 10/07/18 10/07/18 Range/Units 04:20 04:20 WBC 12.9 H (3.8-10.6) k/uL RBC 2.64 L (3.80-5.40) m/uL Hgb 7.8 L (11.4-16.0) gm/dL Hct 23.6 L (34.0-46.0) % RDW 17.0 H (11.5-15.5) % Plt Count 125 L (150-450) k/uL ABG O2 Saturation (94-97) % Chloride 113 H (98-107) mmol/L BUN 40 H (7-17) mg/dL Creatinine 1.27 H (0.52-1.04) mg/dL Glucose 62 L (74-99) mg/dL POC Glucose (mg/dL) (75-99) mg/dL Calcium 8.3 L (8.4-10.2) mg/dL Microbiology - Last 24 Hours (Table) 10/03/18 20:07 Blood Culture - Preliminary Blood No Growth after 72 hours 10/03/18 20:07 Blood Culture - Preliminary Blood No Growth after 72 hours 10/05/18 01:18 Gram Stain - Preliminary Sputum Sputum Culture - Final Haemophilus species Assessment and Plan Assessment: Assessment #1 coronary artery disease and status post PCI of the LAD #2 cardiogenic shock requiring mechanical support #3 acute respiratory failure #4 acute renal failure #5 anemia Plan #1 continue the current medical regimen including dual antiplatelet therapy #2 start small dose of beta dennis with metoprolol #3 start the patient on Lasix IV #4 continue monitor the kidney function and electrolytes #5 limited echocardiogram #6 follow-up with the patient
[2018-10-07] MEDS ORDERED: GABAPENTIN 400 MG CAP PO SCH (10:00)
[2018-10-07] MEDS: PANTOPRAZOLE 40 MG/10 ML VIAL IVP SCH (10:03)
[2018-10-07] MEDS: ASPIRIN 81 MG PO SCH (10:04)
[2018-10-07] MEDS: PRASUGREL 10 MG TAB PO SCH (10:04)
[2018-10-07] MEDS: FUROSEMIDE 10 MG/ML 4 ML VIAL IV SCH ×2 (10:05→21:34)
[2018-10-07] MEDS: METOPROLOL TARTRATE 12.5 MG TAB PO SCH ×2 (10:06→20:34)
[2018-10-07] MEDS: GABAPENTIN 400 MG CAP PO SCH ×4 (10:27→22:13)
[2018-10-07 12:17] LABS: Glucose,Whole Blood 99 mg/dL (75-99)
--- NOTE | 2018-10-07 12:23 | P.PN ---
Subjective Progress Note Date: 10/07/18 Principal diagnosis: Acute hypoxic respiratory failure secondary to cardiac arrest A 63-year-old female patient with known history of coronary artery disease, hypertension and diabetes mellitus and hyperlipidemia and peripheral neuropathy. She is an ex-smoker. The patient came in for elective cardiac catheterization during which the patient was found to have a mid LAD lesion. During the procedure, the patient went into cardiac arrest. As the angioplasty was being performed, the patient developed profound hypotension and went into a PEA. Note that the patient continued to have on and off hypotension and cardiac arrest for approximately 60 minutes in the [employer]. During the process, the LAD stent was the fluid, resuscitation was done during which the patient received CPR and defibrillation. Pressors were initiated. Patient was intubated. Please refer to the cardiology note regarding the details of the cardiac arrest and resuscitation procedure. Note that in and pallor was also inserted to augment her cardiac output and hemodynamics. I saw the patient immediately after she arrived to the intensive care unit. She was withdrawing to painful stimulation. I had to put that on propofol for sedation and currently propofol is running. 40 g per KG per minute. The patient was intubated on a mechanical ventilator. I noted the blood gases and the patient had a component of respiratory metabolic acidosis. I made the appropriate vent changes and the patient is currently on a VC plus mode with a tidal volume of 450, respiratory rate of 26, FiO2 of 100% with a PEEP of 7. The most recent blood gas showed a pH of 7.29 with a pCO2 of 30 and pO2 of 21 and this was on the fentanyl 100%. FiO2 will be gradually weaned off. Chest x-ray was done and ET tube was in the proximal right mainstem. The tube was withdrawn by around 2 cm. Chest x-ray was consistent with pulmonary edema and the patient was having some frothy rest or secretions in the orotracheal tube. I was informed by cardiology that the patient did not have any coronary dissection or perforation. There was no evidence of a tamponade. No valvular disruption. Impala was in place in the right femoral artery. The patient also had a sheath in the right femoral vein. She has adequate pulses in all 4 extremities. The patient was maintained on a combination of factors including 3 g of norepinephrine infusion and 10 g of levo fed infusion. Urine output has been no other of 30 mL an hour. The patient has been afebrile. She is on dual platelet agents including aspirin and Effient. IV heparin will be also initiated. On 10/03/2018, follow-up. The patient is still intubated on a mechanical ventilator. The patient remains on Impala for hemodynamic support. Clinically she is well sedated and she is calm and comfortable on 50 g of propofol. The patient is intubated on a mechanical ventilator and FiO2 has been drop down to 50% and PEEP is still at 7. I reviewed today's blood gas and the patient is adequate oxygenation with a pO2 of 184. The pH is at 7.47 with a pCO2 of 31. Based on this, drop the FiO2 down to 40% and drop the PEEP down to 5. Chest x- ray shows adequate expansion of both lungs. ET tube is in a good location. The patient has a triple lumen catheter in the left IJ and later on during the day there was some oozing at the catheter insertion site probably related to the use of IV heparin. Hemoglobin dropped down to 8.6 and was still monitoring the hemoglobin. Appropriate dressing has been applied to the left IJ puncture site. The patient is on a combination of pressors and the patient is currently on examination of norepinephrine infusion and epinephrine the dose being titrated to maintain a mean artery pressure above 65. Creatinine is up to 1.4. The patient is producing around 30-40 mL an hour of urine output. She is afebrile. Impala catheter is still in place and the patient is receiving adequate hemodynamic support. CVP earlier was 5 and the patient was given a bolus of 500 mL and the patient is also receiving maintenance fluids of 75 mL an hour. The patient remains on a combination of aspirin, Effient and the patient is also on IV heparin. No fever. No seizure activity. The patient is still sensing painful stimulation she withdraws to painful stimulation all 4 extremities. Pupils are 4 mm in size and reactive to light. The white cell count is up to 22. On 10/04/2018 I'm seeing this patient for a follow-up. The patient is well sedated and patient's, comfortable likely distress. The patient is still on a mechanical ventilator with a vent setting being an FiO2 of 40% with a PEEP of 5 and a tidal volume of 450. The chest x-ray today shows no acute abnormalities. The patient has an ET tube in place. No significant edema pneumonia or effusions. The blood gas showed a pH of 7.39 with a pCO2 of 38 and pO2 of 117. This was done and FiO2 of 40%. CVP is around 8. The patient is on norepinephrine infusion at 0.15 g per KG per minute. Epinephrine drip was discontinued. The plan is to remove the Impala today as the patient is improved hemodynamically. Noted the patient was having some oozing of blood from the puncture site including left IJ and the puncture site in the right femoral area where the femoral sheath and the Impala catheter was inserted. Amount of bleeding is minimal. The patient received 2 units of packed RBC yesterday. Hemoglobin today is at 7.6. Patient will grade temperature spike yesterday and for that reason cultures were sent and the patient was given a dose of vancomycin. White cell count is at 16.3. Otherwise, he is receiving tube feeds at the rate of 25 mL an hour of vital high protein. IV heparin has been discontinued. She remains on a combination of aspirin and Effient. She is on insulin drip for blood sugar control. No other significant events overnight. Atelectatic discussion with cardiology. The plan is to remove the Impala today. Coagulation profile is within normal limits. Platelet count remains at 143. On 10/05/2018 the patient is sedated, comfortable on a mechanical ventilator. Hemodynamically the patient is doing well off Impala. Epinephrine drip. Norepinephrine infusion is running at a low rate and this can be gradually weaned off and discontinued hopefully today. IV fluids are running at the rate of 100 mL an hour of normal saline. The patient has adequate urine output. CVP is at 11. Hemoglobin from this morning was at 5.4 and this is expected to be related to the blood loss that occurred at the time of removal of the Impala as I was told that there was some bleeding encountered while doing this intervention. In any rate, there is no hematoma in the thigh. No active bleeding from the puncture sites whether it's in the right groin or in the left IJ area. The patient will be receiving a total of 2 units of packed RBC. No fever. No chills. Cultures of been negative. Cardiac rhythm is still sinus. He remains on a mechanical ventilator. Vent settings are essentially the same and the patient remains on assist control mode of ventilation with a tidal volume of 450, FiO2 of 40% with a PEEP of 5 and the rate of extreme. Chest x- ray shows no acute abnormalities. The patient is tolerating her tube feeds. The plan is to get the patient packed RBC transfusion and following that the patient will be receiving a spontaneous breathing trial to assess her candidacy for further weaning off the mechanical ventilator. On 10/06/2018, seeing this patient for a follow-up. The patient doing extremely well. She is on no pressors for now. Earlier this morning she was given a dose of Lasix 20 mg IV push and she is producing excellent urine output. She is taken off sedation the patient is gradually waking up and following commands. She is moving all 4 extremities. I am in the process of taking this patient off sedation and if she is fully awake, weaning parameters will be checked and the patient will be considered for extubation today. Note that she is hemodynamically stable. No signs of bleeding. Hemoglobin is stable. No fever. No chills. Her hemoglobin stable at 7.0. Cardiac rhythm is normal sinus mechanism. She seems to be recovering from a cardiogenic shock and the Impala a nd the presence of been all discontinued. The sputum sample is positive for Haemophilus influenza. She is on a combination of aspirin and Effient. Chest x-ray showing some small effusion the lung bases and atelectasis. Otherwise the chest x-ray is within normal limits. IV heparin has been discontinued. On 10/07/2018, patient remains in the ICU, she was extubated yesterday, not requiring any pressors, remains on diuretics, she has fairly good urine output. Family is at bedside, and they were all updated on her condition. Patient is awake, following simple instructions, seems to be generally weak, and has a weak cough. CBC is relatively normal however hemoglobin is 7.8, electrolytes are normal BUN is 40 creatinine 1.27. Chest x-ray continues to show bilateral patchy interstitial opacities reflecting some component of pulmonary edema . Small effusions also noted. Patient is hemodynamically stable, follow-up echocardiogram is pending to document if there is any improvement in LV function Objective - Vital Signs Vital signs: Vital Signs Temp 96.7 F L 10/07/18 08:00 Pulse 85 10/07/18 11:45 Resp 17 10/07/18 11:00 BP 164/92 10/07/18 11:00 Pulse Ox 100 10/07/18 11:00 Intake & Output 10/06/18 10/07/18 10/07/18 18:59 06:59 18:59 Intake Total 787.811 455.85 303 Output Total 2845 660 685 Balance -2057.189 -204.15 -382 Intake: IV 513 453 303 Magnesium Sulfate-D5w Pmx 100 100 1 gm In Dextrose/Water 1 100ml.bag @ 100 mls/hr IVPB Q1H [facility] Rx#: [id number] Normal Saline @ 100mls/hr 480 220 20 Potassium Chloride 10 meq 100 100 In Water For Injection 1 100ml.bag @ 100 mls/hr IVPB Q1H [facility] Rx#: [id number] Sodium Chloride 0.9% 1, 80 000 ml @ 20 mls/hr IV . Q24H [facility] Rx#:[id number] pressure bags 33 33 3 Intake, IV Titration 139.811 2.85 Amount Insulin Regular 100 unit 5.976 2.85 In Sodium Chloride 0.9% 100 ml @ Per Protocol IV .Q0M [facility] Rx#:[id number] Magnesium Sulfate-D5w Pmx 100 1 gm In Dextrose/Water 1 100ml.bag @ 100 mls/hr IVPB Q1H [facility] Rx#: [id number] Propofol 1,000 mg In 33.835 Empty Bag 1 bag @ Titrate IV .Q0M [facility] Rx#: [id number] Tube Feeding 75 Other 60 Output: Urine 2845 660 685 Other: Voiding Method Indwelling Catheter Indwelling Catheter ABP, PAP, CO, CI - Last Documented Arterial Blood Pressure 99/47 - Exam Physical Exam: Revealed a 63-year-old female, obese, generally weak, in no distress. Head: Atraumatic, normocephalic. HEENT:[Neck is supple.] [No neck masses.] [No thyromegaly.] [No JVD.] PERRLA, EOMI, no icterus. Left IJ triple-lumen catheter is noted. Chest: [Fine crackles at the bases, no rhonchi and no wheezes..] Cardiac Exam: [Normal S1 and S2, no S3 gallop, no murmur.] Abdomen: [Obese, Soft, nontender, no megaly, no rebound, no guarding, normal bowel sounds.] Extremities: [No clubbing, 1+ bipedal in upper and lower extremities, no cyanosis.] Neurological Exam: Generally weak, follows simple instructions, [No focal neurologic deficit.] Psychiatric: Normal mood affect and mental status examination. Skin: No rashes. Lymphatics: No lymphadenopathy - Labs CBC & Chem 7: 10/07/18 04:20 10/07/18 04:20 Labs: Abnormal Lab Results - Last 24 Hours (Table) 10/06/18 10/06/18 10/06/18 Range/Units 12:06 13:19 13:55 WBC (3.8-10.6) k/uL RBC (3.80-5.40) m/uL Hgb (11.4-16.0) gm/dL Hct (34.0-46.0) % RDW (11.5-15.5) % Plt Count (150-450) k/uL ABG O2 Saturation 97.4 H (94-97) % Chloride (98-107) mmol/L BUN (7-17) mg/dL Creatinine (0.52-1.04) mg/dL Glucose (74-99) mg/dL POC Glucose (mg/dL) 136 H 139 H (75-99) mg/dL Calcium (8.4-10.2) mg/dL 10/06/18 10/06/18 10/06/18 Range/Units 16:54 18:05 20:13 WBC (3.8-10.6) k/uL RBC (3.80-5.40) m/uL Hgb (11.4-16.0) gm/dL Hct (34.0-46.0) % RDW (11.5-15.5) % Plt Count (150-450) k/uL ABG O2 Saturation (94-97) % Chloride (98-107) mmol/L BUN (7-17) mg/dL Creatinine (0.52-1.04) mg/dL Glucose (74-99) mg/dL POC Glucose (mg/dL) 165 H 144 H 118 H (75-99) mg/dL Calcium (8.4-10.2) mg/dL 10/07/18 10/07/18 10/07/18 Range/Units 01:07 01:07 04:20 WBC 12.0 H (3.8-10.6) k/uL RBC 2.50 L (3.80-5.40) m/uL Hgb 7.3 L (11.4-16.0) gm/dL Hct 21.8 L (34.0-46.0) % RDW 15.9 H (11.5-15.5) % Plt Count 111 L (150-450) k/uL ABG O2 Saturation (94-97) % Chloride 113 H 113 H (98-107) mmol/L BUN 39 H 40 H (7-17) mg/dL Creatinine 1.37 H 1.27 H (0.52-1.04) mg/dL Glucose 72 L 62 L (74-99) mg/dL POC Glucose (mg/dL) (75-99) mg/dL Calcium 7.6 L 8.3 L (8.4-10.2) mg/dL 10/07/18 Range/Units 04:20 WBC 12.9 H (3.8-10.6) k/uL RBC 2.64 L (3.80-5.40) m/uL Hgb 7.8 L (11.4-16.0) gm/dL Hct 23.6 L (34.0-46.0) % RDW 17.0 H (11.5-15.5) % Plt Count 125 L (150-450) k/uL ABG O2 Saturation (94-97) % Chloride (98-107) mmol/L BUN (7-17) mg/dL Creatinine (0.52-1.04) mg/dL Glucose (74-99) mg/dL POC Glucose (mg/dL) (75-99) mg/dL Calcium (8.4-10.2) mg/dL Microbiology - Last 24 Hours (Table) 10/05/18 01:18 Gram Stain - Final Sputum Sputum Culture - Final Haemophilus influenzae 10/03/18 20:07 Blood Culture - Preliminary Blood No Growth after 72 hours 10/03/18 20:07 Blood Culture - Preliminary Blood No Growth after 72 hours Assessment and Plan Assessment: Impression: 1 acute cardiac arrest during cardiac catheterization and stenting of LAD with prolonged course of CPR 2 acute hypoxic respiratory failure secondary to above 3 coronary artery disease and status post stenting of LAD for mid LAD lesion 4 suspect LV dysfunction and cardiogenic pulmonary edema requiring intubation and mechanical ventilation 5 type 2 diabetes on insulin drip 6 diabetic peripheral neuropathy, restart the Neurontin 7 acute anemia requiring transfusion of 2 units of packed RBCs, most likely secondary to blood loss during Impala catheter removal. 8 acute kidney injury, suspect ATN, improving. Recommendation: Continue present supportive care measures, patient will remain in the ICU today, updated her family at her condition, continue to monitor her daily electrolytes, renal profile, continue diuretics, rechecked LV function by repeating echocardiogram, patient was extubated on 10/06/2018, and tolerated the extubation so far. Continue GI and DVT prophylaxis. Continue dual antiplatelet therapy patient was started today on small dose of beta blockers with metoprolol, continue Lasix, continue to monitor in the ICU on a daily basis. Family updated on her condition, will continue to follow. Time with Patient: Less than 30
[2018-10-07] MEDS: VANCOMYCIN 1,750 MG in SODIUM CHLORIDE 0.9% 500 ML 500 ML IVPB SCH (14:13)
[2018-10-07] MEDS: SODIUM CHLORIDE 0.9% 1,000 ML IV SCH (14:51)
[2018-10-07 18:04] LABS: Glucose,Whole Blood 102 mg/dL (75-99)
[2018-10-07] MEDS: INSULIN ASPART (NovoLOG) 100 UNIT/ML VIAL SQ SCH (18:10)
--- NOTE | 2018-10-07 19:35 | ECHOF ---
Referral Reason:CAD MEASUREMENTS -------- HEIGHT: 132.1 cm WEIGHT: 101.2 kg BP: FINDINGS -------- Echo done 10/03/18: Limited Study for Lv Function. Overall left ventricular systolic function is mild-moderately impaired with, an EF between 40 - 45 %. 5.0mg OF Lumason UTLIZED: 2 OR MORE WALL SEGMENTS NOT VISUALIZED. CONCLUSIONS -------- 1. Echo done 10/03/18: Limited Study for Lv Function. 2. Overall left ventricular systolic function is mild-moderately impaired with, an EF between 40 - 45 %. 3. 5.0mg OF Lumason UTLIZED: 2 OR MORE WALL SEGMENTS NOT VISUALIZED. [employer] NETWORK SUPPORT ENGINEER: Marilyn Duncan RDCS
[2018-10-08] MEDS: INSULIN ASPART (NovoLOG) 100 UNIT/ML VIAL SQ SCH ×5 (00:19→21:46)
[2018-10-08 00:27] LABS: Glucose,Whole Blood 126 mg/dL (75-99)
[2018-10-08] MEDS: IPRATROPIUM-ALBUTEROL 3 ML NEB INHALATION SCH ×5 (01:29→20:44)
[2018-10-08] MEDS ORDERED: IPRATROPIUM-ALBUTEROL 3 ML NEB INHALATION PRN (01:32)
[2018-10-08] MEDS: HYDROmorphone 1 MG/ML 1 ML SYRINGE IVP PRN ×3 (03:11→16:07)
[2018-10-08 06:11] LABS: Glucose,Whole Blood 115 mg/dL (75-99)
[2018-10-08 06:25] LABS: INR 0.9 (<1.2); Partial Thromboplastin Time 23.6 sec (22.0-30.0); Prothrombin Time 9.5 sec (9.0-12.0)
[2018-10-08 06:30] LABS: Calcium 8.6 mg/dL (8.4-10.2); Magnesium 1.8 mg/dL (1.6-2.3); Potassium 3.5 mmol/L (3.5-5.1)
[2018-10-08] MEDS ORDERED: Potassium Replacement Protocol 1 EACH MISC MISCELLANE PRN (06:33)
[2018-10-08] MEDS ORDERED: Magnesium Replacement Protocol 1 EACH MISC MISCELLANE PRN (06:33)
[2018-10-08] MEDS: POTASSIUM CHLORIDE ER 20 MEQ TAB.ER PO SCH ×2 (06:44→08:29)
[2018-10-08] MEDS: MAGNESIUM SULFATE-D5W PMX 1 GM in DEXTROSE/WATER 1 100ML.BAG IVPB SCH ×2 (06:44→08:46)
--- NOTE | 2018-10-08 07:33 | P.PN ---
Subjective Progress Note Date: 10/08/18 Principal diagnosis: Coronary artery disease/cardiogenic shock This is a 63-year-old female patient who was admitted to the hospital yesterday and underwent a heart catheterization on successful stenting of the mid LAD with the procedure was complicated by cardiogenic shock of unknown etiology. An Impella was placed and the patient was intubated and was admitted to the intens marion care unit. I'll follow-up with the patient today, October [id number], the patient overall is doing better clinically. She continues to be with an 80 stable as well. She was started on Lasix IV yesterday she has been diuresing very well. The creatinine has been stable. Hemoglobin has been stable as well. Also yesterday she was started on metoprolol at 12.5 mg by mouth twice a day. The blood pressure has been on the high side. I'm going to add lisinopril to the current medical regimen and hopefully by tomorrow we can add Aldactone. The repeated echocardiogram showed improvement in the LV function to 40-45%. Objective - Vital Signs Vital signs: Vital Signs Temp 97.5 F L 10/08/18 04:00 Pulse 89 10/08/18 06:00 Resp 16 10/08/18 06:00 BP 115/66 10/08/18 06:00 Pulse Ox 97 10/08/18 06:00 Intake & Output 10/07/18 10/08/18 10/08/18 18:59 06:59 18:59 Intake Total 943 240 20 Output Total 2885 1790 100 Balance -1942 -1550 -80 Weight 100.2 kg Intake: IV 443 240 20 Magnesium Sulfate-D5w Pmx 100 1 gm In Dextrose/Water 1 100ml.bag @ 100 mls/hr IVPB Q1H [facility] Rx#: [id number] Normal Saline @ 100mls/hr 20 Potassium Chloride 10 meq 100 In Water For Injection 1 100ml.bag @ 100 mls/hr IVPB Q1H [facility] Rx#: [id number] Sodium Chloride 0.9% 1, 220 240 20 000 ml @ 20 mls/hr IV . Q24H [facility] Rx#:[id number] pressure bags 3 Intake, IV Titration 500 Amount Vancomycin 1,750 mg In 500 Sodium Chloride 0.9% 500 ml 500 ml @ 167 mls/hr IVPB Q24HR [facility] Rx#: [id number] Output: Urine 2885 1790 100 Other: Voiding Method Indwelling Catheter Indwelling Catheter ABP, PAP, CO, CI - Last Documented Arterial Blood Pressure 99/47 - Constitutional General appearance: Present: no acute distress - Respiratory Respiratory: bilateral: rales - Cardiovascular Rhythm: regular Heart sounds: normal: S1, S2 - Labs CBC & Chem 7: 10/07/18 04:20 10/08/18 05:56 Labs: Abnormal Lab Results - Last 24 Hours (Table) 10/07/18 10/08/18 10/08/18 Range/Units 17:52 00:15 05:56 Chloride 112 H (98-107) mmol/L BUN 35 H (7-17) mg/dL Creatinine 1.17 H (0.52-1.04) mg/dL Glucose 108 H (74-99) mg/dL POC Glucose (mg/dL) 102 H 126 H (75-99) mg/dL 10/08/18 Range/Units 06:00 Chloride (98-107) mmol/L BUN (7-17) mg/dL Creatinine (0.52-1.04) mg/dL Glucose (74-99) mg/dL POC Glucose (mg/dL) 115 H (75-99) mg/dL Microbiology - Last 24 Hours (Table) 10/03/18 20:07 Blood Culture - Preliminary Blood No Growth after 96 hours 10/03/18 20:07 Blood Culture - Preliminary Blood No Growth after 96 hours 10/05/18 01:18 Gram Stain - Final Sputum Sputum Culture - Final Haemophilus influenzae Assessment and Plan Assessment: Assessment #1 coronary artery disease and status post PCI of the LAD #2 cardiogenic shock requiring mechanical support #3 acute respiratory failure #4 acute renal failure #5 anemia Plan #1 continue dual antiplatelet therapy #2 continue Lasix IV #3 continue the metoprolol #4 add lisinopril to the current medical regimen #5 ask physical therapy to see the patient #6 follow-up with the patient
--- NOTE | 2018-10-08 08:40 | XR ---
EXAMINATION TYPE: XR chest 1V portable DATE OF EXAM: 10/08/2018 COMPARISON: 10/07/2018 HISTORY: Shortness of breath FINDINGS: There are bilateral pleural effusions with cardiomegaly and bibasilar infiltrate. There is a diffuse interstitial pattern. Left-sided central line stable. IMPRESSION: 1. Diffuse pleural-parenchymal changes correlate for pulmonary edema otherwise consider pneumonia. Fi ndings appear mildly progressed.
[2018-10-08] MEDS: VANCOMYCIN 1,750 MG in SODIUM CHLORIDE 0.9% 500 ML 500 ML IVPB SCH (09:45)
[2018-10-08] MEDS: PANTOPRAZOLE 40 MG/10 ML VIAL IVP SCH (09:50)
[2018-10-08] MEDS: FUROSEMIDE 10 MG/ML 4 ML VIAL IV SCH ×2 (09:51→21:46)
[2018-10-08] MEDS: AMOXIC-POT CLAV 875-125MG 1 EACH TAB PO SCH ×2 (10:00→20:45)
[2018-10-08] MEDS: METOPROLOL TARTRATE 12.5 MG TAB PO SCH ×2 (10:00→20:44)
[2018-10-08] MEDS: ASPIRIN 81 MG PO SCH (10:01)
[2018-10-08] MEDS: GABAPENTIN 400 MG CAP PO SCH ×4 (10:01→20:44)
[2018-10-08] MEDS: LISINOPRIL 2.5 MG TAB PO SCH (10:01)
[2018-10-08] MEDS: PRASUGREL 10 MG TAB PO SCH (10:13)
--- NOTE | 2018-10-08 10:46 | P.PN ---
Subjective Progress Note Date: 10/08/18 Principal diagnosis: Acute hypoxic respiratory failure secondary to cardiac arrest A 63-year-old female patient with known history of coronary artery disease, hypertension and diabetes mellitus and hyperlipidemia and peripheral neuropathy. She is an ex-smoker. The patient came in for elective cardiac catheterization during which the patient was found to have a mid LAD lesion. During the procedure, the patient went into cardiac arrest. As the angioplasty was being performed, the patient developed profound hypotension and went into a PEA. Note that the patient continued to have on and off hypotension and cardiac arrest for approximately 60 minutes in the [employer]. During the process, the LAD stent was the fluid, resuscitation was done during which the patient received CPR and defibrillation. Pressors were initiated. Patient was intubated. Please refer to the cardiology note regarding the details of the cardiac arrest and resuscitation procedure. Note that in and pallor was also inserted to augment her cardiac output and hemodynamics. I saw the patient immediately after she arrived to the intensive care unit. She was withdrawing to painful stimulation. I had to put that on propofol for sedation and currently propofol is running. 40 g per KG per minute. The patient was intubated on a mechanical ventilator. I noted the blood gases and the patient had a component of respiratory metabolic acidosis. I made the appropriate vent changes and the patient is currently on a VC plus mode with a tidal volume of 450, respiratory rate of 26, FiO2 of 100% with a PEEP of 7. The most recent blood gas showed a pH of 7.29 with a pCO2 of 30 and pO2 of 21 and this was on the fentanyl 100%. FiO2 will be gradually weaned off. Chest x-ray was done and ET tube was in the proximal right mainstem. The tube was withdrawn by around 2 cm. Chest x-ray was consistent with pulmonary edema and the patient was having some frothy rest or secretions in the orotracheal tube. I was informed by cardiology that the patient did not have any coronary dissection or perforation. There was no evidence of a tamponade. No valvular disruption. Impala was in place in the right femoral artery. The patient also had a sheath in the right femoral vein. She has adequate pulses in all 4 extremities. The patient was maintained on a combination of factors including 3 g of norepinephrine infusion and 10 g of levo fed infusion. Urine output has been no other of 30 mL an hour. The patient has been afebrile. She is on dual platelet agents including aspirin and Effient. IV heparin will be also initiated. On 10/03/2018, follow-up. The patient is still intubated on a mechanical ventilator. The patient remains on Impala for hemodynamic support. Clinically she is well sedated and she is calm and comfortable on 50 g of propofol. The patient is intubated on a mechanical ventilator and FiO2 has been drop down to 50% and PEEP is still at 7. I reviewed today's blood gas and the patient is adequate oxygenation with a pO2 of 184. The pH is at 7.47 with a pCO2 of 31. Based on this, drop the FiO2 down to 40% and drop the PEEP down to 5. Chest x- ray shows adequate expansion of both lungs. ET tube is in a good location. The patient has a triple lumen catheter in the left IJ and later on during the day there was some oozing at the catheter insertion site probably related to the use of IV heparin. Hemoglobin dropped down to 8.6 and was still monitoring the hemoglobin. Appropriate dressing has been applied to the left IJ puncture site. The patient is on a combination of pressors and the patient is currently on examination of norepinephrine infusion and epinephrine the dose being titrated to maintain a mean artery pressure above 65. Creatinine is up to 1.4. The patient is producing around 30-40 mL an hour of urine output. She is afebrile. Impala catheter is still in place and the patient is receiving adequate hemodynamic support. CVP earlier was 5 and the patient was given a bolus of 500 mL and the patient is also receiving maintenance fluids of 75 mL an hour. The patient remains on a combination of aspirin, Effient and the patient is also on IV heparin. No fever. No seizure activity. The patient is still sensing painful stimulation she withdraws to painful stimulation all 4 extremities. Pupils are 4 mm in size and reactive to light. The white cell count is up to 22. On 10/04/2018 I'm seeing this patient for a follow-up. The patient is well sedated and patient's, comfortable likely distress. The patient is still on a mechanical ventilator with a vent setting being an FiO2 of 40% with a PEEP of 5 and a tidal volume of 450. The chest x-ray today shows no acute abnormalities. The patient has an ET tube in place. No significant edema pneumonia or effusions. The blood gas showed a pH of 7.39 with a pCO2 of 38 and pO2 of 117. This was done and FiO2 of 40%. CVP is around 8. The patient is on norepinephrine infusion at 0.15 g per KG per minute. Epinephrine drip was discontinued. The plan is to remove the Impala today as the patient is improved hemodynamically. Noted the patient was having some oozing of blood from the puncture site including left IJ and the puncture site in the right femoral area where the femoral sheath and the Impala catheter was inserted. Amount of bleeding is minimal. The patient received 2 units of packed RBC yesterday. Hemoglobin today is at 7.6. Patient will grade temperature spike yesterday and for that reason cultures were sent and the patient was given a dose of vancomycin. White cell count is at 16.3. Otherwise, he is receiving tube feeds at the rate of 25 mL an hour of vital high protein. IV heparin has been discontinued. She remains on a combination of aspirin and Effient. She is on insulin drip for blood sugar control. No other significant events overnight. Atelectatic discussion with cardiology. The plan is to remove the Impala today. Coagulation profile is within normal limits. Platelet count remains at 143. On 10/05/2018 the patient is sedated, comfortable on a mechanical ventilator. Hemodynamically the patient is doing well off Impala. Epinephrine drip. Norepinephrine infusion is running at a low rate and this can be gradually weaned off and discontinued hopefully today. IV fluids are running at the rate of 100 mL an hour of normal saline. The patient has adequate urine output. CVP is at 11. Hemoglobin from this morning was at 5.4 and this is expected to be related to the blood loss that occurred at the time of removal of the Impala as I was told that there was some bleeding encountered while doing this intervention. In any rate, there is no hematoma in the thigh. No active bleeding from the puncture sites whether it's in the right groin or in the left IJ area. The patient will be receiving a total of 2 units of packed RBC. No fever. No chills. Cultures of been negative. Cardiac rhythm is still sinus. He remains on a mechanical ventilator. Vent settings are essentially the same and the patient remains on assist control mode of ventilation with a tidal volume of 450, FiO2 of 40% with a PEEP of 5 and the rate of extreme. Chest x- ray shows no acute abnormalities. The patient is tolerating her tube feeds. The plan is to get the patient packed RBC transfusion and following that the patient will be receiving a spontaneous breathing trial to assess her candidacy for further weaning off the mechanical ventilator. On 10/06/2018, seeing this patient for a follow-up. The patient doing extremely well. She is on no pressors for now. Earlier this morning she was given a dose of Lasix 20 mg IV push and she is producing excellent urine output. She is taken off sedation the patient is gradually waking up and following commands. She is moving all 4 extremities. I am in the process of taking this patient off sedation and if she is fully awake, weaning parameters will be checked and the patient will be considered for extubation today. Note that she is hemodynamically stable. No signs of bleeding. Hemoglobin is stable. No fever. No chills. Her hemoglobin stable at 7.0. Cardiac rhythm is normal sinus mechanism. She seems to be recovering from a cardiogenic shock and the Impala a nd the presence of been all discontinued. The sputum sample is positive for Haemophilus influenza. She is on a combination of aspirin and Effient. Chest x-ray showing some small effusion the lung bases and atelectasis. Otherwise the chest x-ray is within normal limits. IV heparin has been discontinued. On 10/07/2018, patient remains in the ICU, she was extubated yesterday, not requiring any pressors, remains on diuretics, she has fairly good urine output. Family is at bedside, and they were all updated on her condition. Patient is awake, following simple instructions, seems to be generally weak, and has a weak cough. CBC is relatively normal however hemoglobin is 7.8, electrolytes are normal BUN is 40 creatinine 1.27. Chest x-ray continues to show bilateral patchy interstitial opacities reflecting some component of pulmonary edema . Small effusions also noted. Patient is hemodynamically stable, follow-up echocardiogram is pending to document if there is any improvement in LV function Reevaluated today on 10/08/2018, patient continues to tolerate the extubation. Not requiring any pressors, she has some difficulty swallowing, and we are addressing that with speech therapy, may need a modified barium swallow. Patient has a very weak cough, she remained generally weak. Continues to diurese well with Lasix, her renal functioning seems to be stable. Her chest x- ray is showing definite improvement. BUN is 35 creatinine is 1.17. Chest x-ray is suggestive of CHF and bibasilar atelectasis. Objective - Vital Signs Vital signs: Vital Signs Temp 97.7 F 10/08/18 08:00 Pulse 92 10/08/18 10:00 Resp 16 10/08/18 10:00 BP 127/70 10/08/18 10:00 Pulse Ox 99 10/08/18 10:00 Intake & Output 10/07/18 10/08/18 10/08/18 18:59 06:59 18:59 Intake Total 943 240 20 Output Total 2885 1790 100 Balance -1942 -1550 -80 Weight 100.2 kg Intake: IV 443 240 20 Magnesium Sulfate-D5w Pmx 100 1 gm In Dextrose/Water 1 100ml.bag @ 100 mls/hr IVPB Q1H [facility] Rx#: [id number] Normal Saline @ 100mls/hr 20 Potassium Chloride 10 meq 100 In Water For Injection 1 100ml.bag @ 100 mls/hr IVPB Q1H [facility] Rx#: [id number] Sodium Chloride 0.9% 1, 220 240 20 000 ml @ 20 mls/hr IV . Q24H [facility] Rx#:[id number] pressure bags 3 Intake, IV Titration 500 Amount Vancomycin 1,750 mg In 500 Sodium Chloride 0.9% 500 ml 500 ml @ 167 mls/hr IVPB Q24HR [facility] Rx#: [id number] Output: Urine 2885 1790 100 Other: Voiding Method Indwelling Catheter Indwelling Catheter ABP, PAP, CO, CI - Last Documented Arterial Blood Pressure 99/47 - Exam Physical Exam: Revealed a 63-year-old female, obese, generally weak, in no distress. Head: Atraumatic, normocephalic. HEENT:[Neck is supple.] [No neck masses.] [No thyromegaly.] [No JVD.] PERRLA, EOMI, no icterus. Left IJ triple-lumen catheter is noted. Chest: [Fine crackles at the bases, no rhonchi and no wheezes..] Cardiac Exam: [Normal S1 and S2, no S3 gallop, no murmur.] Abdomen: [Obese, Soft, nontender, no megaly, no rebound, no guarding, normal bowel sounds.] Extremities: [No clubbing, 1+ bipedal in upper and lower extremities, no cyanosis.] Neurological Exam: Generally weak, follows simple instructions, [No focal neurologic deficit.] Psychiatric: Normal mood affect and mental status examination. Skin: No rashes. Lymphatics: No lymphadenopathy - Labs CBC & Chem 7: 10/07/18 04:20 10/08/18 05:56 Labs: Abnormal Lab Results - Last 24 Hours (Table) 10/07/18 10/08/18 10/08/18 Range/Units 17:52 00:15 05:56 Chloride 112 H (98-107) mmol/L BUN 35 H (7-17) mg/dL Creatinine 1.17 H (0.52-1.04) mg/dL Glucose 108 H (74-99) mg/dL POC Glucose (mg/dL) 102 H 126 H (75-99) mg/dL 10/08/18 Range/Units 06:00 Chloride (98-107) mmol/L BUN (7-17) mg/dL Creatinine (0.52-1.04) mg/dL Glucose (74-99) mg/dL POC Glucose (mg/dL) 115 H (75-99) mg/dL Microbiology - Last 24 Hours (Table) 10/03/18 20:07 Blood Culture - Preliminary Blood No Growth after 96 hours 10/03/18 20:07 Blood Culture - Preliminary Blood No Growth after 96 hours 10/05/18 01:18 Gram Stain - Final Sputum Sputum Culture - Final Haemophilus influenzae Assessment and Plan Assessment: Impression: 1 acute cardiac arrest during cardiac catheterization and stenting of LAD with prolonged course of CPR 2 acute hypoxic respiratory failure secondary to above 3 coronary artery disease and status post stenting of LAD for mid LAD lesion 4 suspect LV dysfunction and cardiogenic pulmonary edema requiring intubation and mechanical ventilation 5 type 2 diabetes on insulin drip 6 diabetic peripheral neuropathy, restart the Neurontin 7 acute anemia requiring transfusion of 2 units of packed RBCs, most likely secondary to blood loss during Impala catheter removal. 8 acute kidney injury, suspect ATN, improving. 9 difficulty swallowing, hence the patient may be going for a modified barium swallow today, being addressed by speech pathology. Recommendation: Continue present supportive care measures, patient will remain in the ICU today, continue to monitor her daily electrolytes, renal profile, continue diuretics, rechecked LV function by repeating echocardiogram, patient was extubated on 10/06/2018, and tolerated the extubation so far. Continue GI and DVT prophylaxis. Continue dual antiplatelet therapy patient was started today on small dose of beta blockers with metoprolol, continue Lasix, continue to monitor in the ICU on a daily basis. Family updated on her condition, will have a modified barium swallow today, we will continue to follow. Prognosis remains definitely guarded. Time with Patient: Less than 30
[2018-10-08 11:47] LABS: Glucose,Whole Blood 75 mg/dL (75-99)
[2018-10-08 11:47] LABS: Glucose,Whole Blood 55 mg/dL (75-99)
[2018-10-08 11:55] LABS: Glucose,Whole Blood 185 mg/dL (75-99)
--- NOTE | 2018-10-08 15:44 | FL ---
EXAMINATION TYPE: FL barium swallow w video DATE OF EXAM: 10/08/2018 COMPARISON: NONE HISTORY: For bedside swallowing test TECHNIQUE: Fluoroscopy. FINDINGS: Fluoroscopic guidance was provided for the procedure performed in conjunction with the [facility] pathology department. Please see complete report forthcoming from the Speech Pathology departmen t. Various consistencies from thin liquid to solids were administered. Fluoroscopy time 1 minute 39 seconds Number of images: 0. There appear to be aspiration with thin liquids. Transient penetration was with some nectar thick liq uid, during one segment. [place] Thick liquids otherwise had normal swallowing. No significant pooling was observed in the vallecula. There was normal propulsion of the bolus. IMPRESSION: 1. Aspiration with thin liquids. 2. Some penetration with nectar thick liquids on one swallowing sequence. 3. Remaining portion of the study is unremarkable
[2018-10-08] MEDS: SODIUM CHLORIDE 0.9% 1,000 ML IV SCH (16:09)
[2018-10-08 17:59] LABS: Glucose,Whole Blood 170 mg/dL (75-99)
[2018-10-08 20:39] LABS: Glucose,Whole Blood 178 mg/dL (75-99)
[2018-10-09 04:45] LABS: Anisocytosis Slight; Basophils % (A) 0 %; Eosinophils # (A) 0.3 k/uL (0-0.7); Eosinophils % (A) 3 %; HCT 23.9 % (34.0-46.0); HGB 7.9 gm/dL (11.4-16.0); Hypochromasia Slight; Lymphocytes # (A) 0.6 k/uL (1.0-4.8); Lymphocytes % (A) 6 %; MCH 29.4 pg (25.0-35.0); MCHC 32.9 g/dL (31.0-37.0); MCV 89.2 fL (80.0-100.0); Mean Platelet Volume 8.2; Monocytes # (A) 0.5 k/uL (0-1.0); Monocytes % (A) 5 %; Neutrophils % (A) 83 %; Platelet Count 245 k/uL (150-450); Poikilocytosis Slight; RBC 2.67 m/uL (3.80-5.40); WBC 9.7 k/uL (3.8-10.6)
[2018-10-09 04:58] LABS: Albumin 2.8 g/dL (3.5-5.0); Calcium 8.9 mg/dL (8.4-10.2); Magnesium 1.7 mg/dL (1.6-2.3); Potassium 3.9 mmol/L (3.5-5.1); Total Bilirubin 0.9 mg/dL (0.2-1.3); Total Protein 5.5 g/dL (6.3-8.2)
[2018-10-09] MEDS: POTASSIUM CHLORIDE 10 MEQ in WATER FOR INJECTION 1 100ML.BAG IVPB SCH ×2 (05:58→06:58)
[2018-10-09] MEDS: MAGNESIUM SULFATE-D5W PMX 1 GM in DEXTROSE/WATER 1 100ML.BAG IVPB SCH ×2 (06:04→08:50)
[2018-10-09] MEDS: HYDROmorphone 1 MG/ML 1 ML SYRINGE IVP PRN (06:56)
[2018-10-09] MEDS: INSULIN ASPART (NovoLOG) 100 UNIT/ML VIAL SQ SCH ×4 (07:02→21:26)
[2018-10-09 07:07] LABS: Glucose,Whole Blood 228 mg/dL (75-99)
[2018-10-09] MEDS: IPRATROPIUM-ALBUTEROL 3 ML NEB INHALATION SCH ×4 (08:04→21:09)
[2018-10-09] MEDS ORDERED: VANCOMYCIN TROUGH DUE 1 EACH MISC MISCELLANE ONE (09:00)
--- NOTE | 2018-10-09 09:38 | P.PN ---
Subjective Progress Note Date: 10/09/18 Principal diagnosis: Coronary artery disease/cardiogenic shock This is a 63-year-old female patient who was admitted to the hospital yesterday and underwent a heart catheterization on successful stenting of the mid LAD with the procedure was complicated by cardiogenic shock of unknown etiology. An Impella was placed and the patient was intubated and was admitted to the intens [facility] care unit. On follow-up with the patient today, 10/09/2018, she seems to be doing slightly better clinically. Hemodynamically she is stable. Her mentation has improved compared to before. The hemoglobin is stable and the creatinine is stable as well as. She is tolerating the current medical regimen. I am going to add Aldactone to the current medical regimen. Continue diuresing the patient using Lasix IV. She still hypervolemic. Physical therapy was consulted yesterday. Objective - Vital Signs Vital signs: Vital Signs Temp 98.4 F 10/09/18 08:00 Pulse 93 10/09/18 09:00 Resp 17 10/09/18 09:00 BP 136/72 10/09/18 09:00 Pulse Ox 96 10/09/18 09:00 Intake & Output 10/08/18 10/09/18 10/09/18 18:59 06:59 18:59 Intake Total 960 620 160 Output Total 2100 1195 160 Balance -1140 -575 0 Weight 95.9 kg Intake: IV 20 420 160 Magnesium Sulfate-D5w Pmx 100 100 1 gm In Dextrose/Water 1 100ml.bag @ 100 mls/hr IVPB Q1H [facility] Rx#: [id number] Potassium Chloride 10 meq 100 In Water For Injection 1 100ml.bag @ 100 mls/hr IVPB Q1H [facility] Rx#: [id number] Sodium Chloride 0.9% 1, 20 220 60 000 ml @ 20 mls/hr IV . Q24H [facility] Rx#:[id number] Intake, IV Titration 820 Amount Magnesium Sulfate-D5w Pmx 100 1 gm In Dextrose/Water 1 100ml.bag @ 100 mls/hr IVPB Q1H [facility] Rx#: [id number] Sodium Chloride 0.9% 1, 220 000 ml @ 20 mls/hr IV . Q24H [facility] Rx#:[id number] Vancomycin 1,750 mg In 500 Sodium Chloride 0.9% 500 ml 500 ml @ 167 mls/hr IVPB Q24HR [facility] Rx#: [id number] Oral 120 200 Output: Urine 2100 1195 160 Other: Voiding Method Indwelling Catheter ABP, PAP, CO, CI - Last Documented Arterial Blood Pressure 99/47 - Constitutional General appearance: Present: no acute distress - Respiratory Respiratory: bilateral: rales - Cardiovascular Rhythm: regular Heart sounds: normal: S1, S2 - Labs CBC & Chem 7: 10/09/18 04:13 10/09/18 04:13 Labs: Abnormal Lab Results - Last 24 Hours (Table) 10/07/18 10/08/18 10/08/18 Range/Units 04:23 11:43 17:46 RBC (3.80-5.40) m/uL Hgb (11.4-16.0) gm/dL Hct (34.0-46.0) % RDW (11.5-15.5) % Neutrophils # (1.3-7.7) k/uL Lymphocytes # (1.0-4.8) k/uL Sodium (137-145) mmol/L Chloride (98-107) mmol/L BUN (7-17) mg/dL Creatinine (0.52-1.04) mg/dL Glucose (74-99) mg/dL POC Glucose (mg/dL) 55 L 185 H 170 H (75-99) mg/dL Total Protein (6.3-8.2) g/dL Albumin (3.5-5.0) g/dL 10/08/18 10/09/18 10/09/18 Range/Units 20:26 04:13 04:13 RBC 2.67 L (3.80-5.40) m/uL Hgb 7.9 L (11.4-16.0) gm/dL Hct 23.9 L (34.0-46.0) % RDW 17.0 H (11.5-15.5) % Neutrophils # 8.0 H (1.3-7.7) k/uL Lymphocytes # 0.6 L (1.0-4.8) k/uL Sodium 146 H (137-145) mmol/L Chloride 111 H (98-107) mmol/L BUN 32 H (7-17) mg/dL Creatinine 1.08 H (0.52-1.04) mg/dL Glucose 194 H (74-99) mg/dL POC Glucose (mg/dL) 178 H (75-99) mg/dL Total Protein 5.5 L (6.3-8.2) g/dL Albumin 2.8 L (3.5-5.0) g/dL 10/09/18 Range/Units 06:56 RBC (3.80-5.40) m/uL Hgb (11.4-16.0) gm/dL Hct (34.0-46.0) % RDW (11.5-15.5) % Neutrophils # (1.3-7.7) k/uL Lymphocytes # (1.0-4.8) k/uL Sodium (137-145) mmol/L Chloride (98-107) mmol/L BUN (7-17) mg/dL Creatinine (0.52-1.04) mg/dL Glucose (74-99) mg/dL POC Glucose (mg/dL) 228 H (75-99) mg/dL Total Protein (6.3-8.2) g/dL Albumin (3.5-5.0) g/dL Microbiology - Last 24 Hours (Table) 10/03/18 20:07 Blood Culture - Preliminary Blood No Growth after 120 hours 10/03/18 20:07 Blood Culture - Preliminary Blood No Growth after 120 hours Assessment and Plan Assessment: Assessment #1 coronary artery disease and status post PCI of the LAD #2 cardiogenic shock requiring mechanical support #3 acute respiratory failure #4 acute renal failure #5 anemia Plan #1 continue dual antiplatelet therapy #2 continue Lasix IV #3 continue the metoprolol #4 add Aldactone to the current medical regimen #5 continue physical therapy #6 follow-up with the patient
[2018-10-09] MEDS: VANCOMYCIN 1,750 MG in SODIUM CHLORIDE 0.9% 500 ML 500 ML IVPB SCH (09:47)
[2018-10-09] MEDS: FUROSEMIDE 10 MG/ML 4 ML VIAL IV SCH ×2 (09:48→21:03)
[2018-10-09] MEDS: PANTOPRAZOLE 40 MG/10 ML VIAL IVP SCH (09:48)
[2018-10-09] MEDS: GABAPENTIN 400 MG CAP PO SCH ×5 (10:56→21:03)
[2018-10-09] MEDS: METOPROLOL TARTRATE 12.5 MG TAB PO SCH ×2 (10:56→21:03)
[2018-10-09] MEDS: AMOXIC-POT CLAV 875-125MG 1 EACH TAB PO SCH ×2 (10:56→21:03)
[2018-10-09] MEDS: SPIRONOLACTONE 25 MG TAB PO SCH (10:56)
[2018-10-09] MEDS: ASPIRIN 81 MG PO SCH (10:56)
[2018-10-09] MEDS: LISINOPRIL 2.5 MG TAB PO SCH (10:56)
[2018-10-09] MEDS: PRASUGREL 10 MG TAB PO SCH (11:00)
--- NOTE | 2018-10-09 11:14 | P.PN ---
Subjective Progress Note Date: 10/09/18 Principal diagnosis: Acute hypoxic respiratory failure secondary to cardiac arrest A 63-year-old female patient with known history of coronary artery disease, hypertension and diabetes mellitus and hyperlipidemia and peripheral neuropathy. She is an ex-smoker. The patient came in for elective cardiac catheterization during which the patient was found to have a mid LAD lesion. During the procedure, the patient went into cardiac arrest. As the angioplasty was being performed, the patient developed profound hypotension and went into a PEA. Note that the patient continued to have on and off hypotension and cardiac arrest for approximately 60 minutes in the [employer]. During the process, the LAD stent was the fluid, resuscitation was done during which the patient received CPR and defibrillation. Pressors were initiated. Patient was intubated. Please refer to the cardiology note regarding the details of the cardiac arrest and resuscitation procedure. Note that in and pallor was also inserted to augment her cardiac output and hemodynamics. I saw the patient immediately after she arrived to the intensive care unit. She was withdrawing to painful stimulation. I had to put that on propofol for sedation and currently propofol is running. 40 g per KG per minute. The patient was intubated on a mechanical ventilator. I noted the blood gases and the patient had a component of respiratory metabolic acidosis. I made the appropriate vent changes and the patient is currently on a VC plus mode with a tidal volume of 450, respiratory rate of 26, FiO2 of 100% with a PEEP of 7. The most recent blood gas showed a pH of 7.29 with a pCO2 of 30 and pO2 of 21 and this was on the fentanyl 100%. FiO2 will be gradually weaned off. Chest x-ray was done and ET tube was in the proximal right mainstem. The tube was withdrawn by around 2 cm. Chest x-ray was consistent with pulmonary edema and the patient was having some frothy rest or secretions in the orotracheal tube. I was informed by cardiology that the patient did not have any coronary dissection or perforation. There was no evidence of a tamponade. No valvular disruption. Impala was in place in the right femoral artery. The patient also had a sheath in the right femoral vein. She has adequate pulses in all 4 extremities. The patient was maintained on a combination of factors including 3 g of norepinephrine infusion and 10 g of levo fed infusion. Urine output has been no other of 30 mL an hour. The patient has been afebrile. She is on dual platelet agents including aspirin and Effient. IV heparin will be also initiated. On 10/03/2018, follow-up. The patient is still intubated on a mechanical ventilator. The patient remains on Impala for hemodynamic support. Clinically she is well sedated and she is calm and comfortable on 50 g of propofol. The patient is intubated on a mechanical ventilator and FiO2 has been drop down to 50% and PEEP is still at 7. I reviewed today's blood gas and the patient is adequate oxygenation with a pO2 of 184. The pH is at 7.47 with a pCO2 of 31. Based on this, drop the FiO2 down to 40% and drop the PEEP down to 5. Chest x- ray shows adequate expansion of both lungs. ET tube is in a good location. The patient has a triple lumen catheter in the left IJ and later on during the day there was some oozing at the catheter insertion site probably related to the use of IV heparin. Hemoglobin dropped down to 8.6 and was still monitoring the hemoglobin. Appropriate dressing has been applied to the left IJ puncture site. The patient is on a combination of pressors and the patient is currently on examination of norepinephrine infusion and epinephrine the dose being titrated to maintain a mean artery pressure above 65. Creatinine is up to 1.4. The patient is producing around 30-40 mL an hour of urine output. She is afebrile. Impala catheter is still in place and the patient is receiving adequate hemodynamic support. CVP earlier was 5 and the patient was given a bolus of 500 mL and the patient is also receiving maintenance fluids of 75 mL an hour. The patient remains on a combination of aspirin, Effient and the patient is also on IV heparin. No fever. No seizure activity. The patient is still sensing painful stimulation she withdraws to painful stimulation all 4 extremities. Pupils are 4 mm in size and reactive to light. The white cell count is up to 22. On 10/04/2018 I'm seeing this patient for a follow-up. The patient is well sedated and patient's, comfortable likely distress. The patient is still on a mechanical ventilator with a vent setting being an FiO2 of 40% with a PEEP of 5 and a tidal volume of 450. The chest x-ray today shows no acute abnormalities. The patient has an ET tube in place. No significant edema pneumonia or effusions. The blood gas showed a pH of 7.39 with a pCO2 of 38 and pO2 of 117. This was done and FiO2 of 40%. CVP is around 8. The patient is on norepinephrine infusion at 0.15 g per KG per minute. Epinephrine drip was discontinued. The plan is to remove the Impala today as the patient is improved hemodynamically. Noted the patient was having some oozing of blood from the puncture site including left IJ and the puncture site in the right femoral area where the femoral sheath and the Impala catheter was inserted. Amount of bleeding is minimal. The patient received 2 units of packed RBC yesterday. Hemoglobin today is at 7.6. Patient will grade temperature spike yesterday and for that reason cultures were sent and the patient was given a dose of vancomycin. White cell count is at 16.3. Otherwise, he is receiving tube feeds at the rate of 25 mL an hour of vital high protein. IV heparin has been discontinued. She remains on a combination of aspirin and Effient. She is on insulin drip for blood sugar control. No other significant events overnight. Atelectatic discussion with cardiology. The plan is to remove the Impala today. Coagulation profile is within normal limits. Platelet count remains at 143. On 10/05/2018 the patient is sedated, comfortable on a mechanical ventilator. Hemodynamically the patient is doing well off Impala. Epinephrine drip. Norepinephrine infusion is running at a low rate and this can be gradually weaned off and discontinued hopefully today. IV fluids are running at the rate of 100 mL an hour of normal saline. The patient has adequate urine output. CVP is at 11. Hemoglobin from this morning was at 5.4 and this is expected to be related to the blood loss that occurred at the time of removal of the Impala as I was told that there was some bleeding encountered while doing this intervention. In any rate, there is no hematoma in the thigh. No active bleeding from the puncture sites whether it's in the right groin or in the left IJ area. The patient will be receiving a total of 2 units of packed RBC. No fever. No chills. Cultures of been negative. Cardiac rhythm is still sinus. He remains on a mechanical ventilator. Vent settings are essentially the same and the patient remains on assist control mode of ventilation with a tidal volume of 450, FiO2 of 40% with a PEEP of 5 and the rate of extreme. Chest x- ray shows no acute abnormalities. The patient is tolerating her tube feeds. The plan is to get the patient packed RBC transfusion and following that the patient will be receiving a spontaneous breathing trial to assess her candidacy for further weaning off the mechanical ventilator. On 10/06/2018, seeing this patient for a follow-up. The patient doing extremely well. She is on no pressors for now. Earlier this morning she was given a dose of Lasix 20 mg IV push and she is producing excellent urine output. She is taken off sedation the patient is gradually waking up and following commands. She is moving all 4 extremities. I am in the process of taking this patient off sedation and if she is fully awake, weaning parameters will be checked and the patient will be considered for extubation today. Note that she is hemodynamically stable. No signs of bleeding. Hemoglobin is stable. No fever. No chills. Her hemoglobin stable at 7.0. Cardiac rhythm is normal sinus mechanism. She seems to be recovering from a cardiogenic shock and the Impala a nd the presence of been all discontinued. The sputum sample is positive for Haemophilus influenza. She is on a combination of aspirin and Effient. Chest x-ray showing some small effusion the lung bases and atelectasis. Otherwise the chest x-ray is within normal limits. IV heparin has been discontinued. On 10/07/2018, patient remains in the ICU, she was extubated yesterday, not requiring any pressors, remains on diuretics, she has fairly good urine output. Family is at bedside, and they were all updated on her condition. Patient is awake, following simple instructions, seems to be generally weak, and has a weak cough. CBC is relatively normal however hemoglobin is 7.8, electrolytes are normal BUN is 40 creatinine 1.27. Chest x-ray continues to show bilateral patchy interstitial opacities reflecting some component of pulmonary edema . Small effusions also noted. Patient is hemodynamically stable, follow-up echocardiogram is pending to document if there is any improvement in LV function Reevaluated today on 10/08/2018, patient continues to tolerate the extubation. Not requiring any pressors, she has some difficulty swallowing, and we are addressing that with speech therapy, may need a modified barium swallow. Patient has a very weak cough, she remained generally weak. Continues to diurese well with Lasix, her renal functioning seems to be stable. Her chest x- ray is showing definite improvement. BUN is 35 creatinine is 1.17. Chest x-ray is suggestive of CHF and bibasilar atelectasis. Reevaluated today on 10/09/2018, patient remains in the ICU, hemodynamically stab le, in no form of respiratory distress, being followed by cardiology regarding her initial cardiac event. Patient remains hemodynamically stable, hemoglobin is stable, electrolytes are normal, patient is having chest pain, musculoskeletal from CPR. BUN is 32 creatinine 1.08, I have discontinued her IV Dilaudid, and recommended oral [place]. Seems to be generally weak, will definitely need a significant effort by physical therapy to optimize her physical status. No chest x-ray was done today. She failed the swallow evaluation, and now she is receiving nectar thick liquids. Objective - Vital Signs Vital signs: Vital Signs Temp 98.4 F 10/09/18 08:00 Pulse 102 H 10/09/18 11:00 Resp 29 H 10/09/18 11:00 BP 151/81 10/09/18 11:00 Pulse Ox 96 10/09/18 11:00 Intake & Output 10/08/18 10/09/18 10/09/18 18:59 06:59 18:59 Intake Total 960 620 210 Output Total 2100 1195 660 Balance -1140 -575 -450 Weight 95.9 kg 95.9 kg Intake: IV 20 420 160 Magnesium Sulfate-D5w Pmx 100 100 1 gm In Dextrose/Water 1 100ml.bag @ 100 mls/hr IVPB Q1H [facility]REG Rx#: [id number] Potassium Chloride 10 meq 100 In Water For Injection 1 100ml.bag @ 100 mls/hr IVPB Q1H [facility]REG Rx#: [id number] Sodium Chloride 0.9% 1, 20 220 60 000 ml @ 20 mls/hr IV . Q24H [facility] Rx#:[id number] Intake, IV Titration 820 Amount Magnesium Sulfate-D5w Pmx 100 1 gm In Dextrose/Water 1 100ml.bag @ 100 mls/hr IVPB Q1H GREG Rx#: [id number] Sodium Chloride 0.9% 1, 220 000 ml @ 20 mls/hr IV . Q24H GREG Rx#:[id number] Vancomycin 1,750 mg In 500 Sodium Chloride 0.9% 500 ml 500 ml @ 167 mls/hr IVPB Q24HR GREG Rx#: [id number] Oral 120 200 50 Output: Urine 2100 1195 660 Other: Voiding Method Indwelling Catheter ABP, PAP, CO, CI - Last Documented Arterial Blood Pressure 99/47 - Exam Physical Exam: Revealed a 63-year-old female, obese, generally weak, in no distress. Remains with voice hoarseness Head: Atraumatic, normocephalic. HEENT:[Neck is supple.] [No neck masses.] [No thyromegaly.] [No JVD.] PERRLA, EOMI, no icterus. Left IJ triple-lumen catheter is noted. Chest: [Fine crackles at the bases, no rhonchi and no wheezes..] Cardiac Exam: [Normal S1 and S2, no S3 gallop, no murmur.] Abdomen: [Obese, Soft, nontender, no megaly, no rebound, no guarding, normal bowel sounds.] Extremities: [No clubbing, 1+ bipedal in upper and lower extremities, no cyanosis.] Neurological Exam: Generally weak, follows simple instructions, [No focal neurologic deficit.] Psychiatric: Normal mood affect and mental status examination. Skin: No rashes. Lymphatics: No lymphadenopathy - Labs CBC & Chem 7: 10/09/18 04:13 10/09/18 04:13 Labs: Abnormal Lab Results - Last 24 Hours (Table) 10/07/18 10/08/18 10/08/18 Range/Units 04:23 11:43 17:46 RBC (3.80-5.40) m/uL Hgb (11.4-16.0) gm/dL Hct (34.0-46.0) % RDW (11.5-15.5) % Neutrophils # (1.3-7.7) k/uL Lymphocytes # (1.0-4.8) k/uL Sodium (137-145) mmol/L Chloride (98-107) mmol/L BUN (7-17) mg/dL Creatinine (0.52-1.04) mg/dL Glucose (74-99) mg/dL POC Glucose (mg/dL) 55 L 185 H 170 H (75-99) mg/dL Total Protein (6.3-8.2) g/dL Albumin (3.5-5.0) g/dL 10/08/18 10/09/1819 Range/Units 20:26 04:13 04:13 RBC 2.67 L (3.80-5.40) m/uL Hgb 7.9 L (11.4-16.0) gm/dL Hct 23.9 L (34.0-46.0) % RDW 17.0 H (11.5-15.5) % Neutrophils # 8.0 H (1.3-7.7) k/uL Lymphocytes # 0.6 L (1.0-4.8) k/uL Sodium 146 H (137-145) mmol/L Chloride 111 H (98-107) mmol/L BUN 32 H (7-17) mg/dL Creatinine 1.08 H (0.52-1.04) mg/dL Glucose 194 H (74-99) mg/dL POC Glucose (mg/dL) 178 H (75-99) mg/dL Total Protein 5.5 L (6.3-8.2) g/dL Albumin 2.8 L (3.5-5.0) g/dL 10/09/18 Range/Units 06:56 RBC (3.80-5.40) m/uL Hgb (11.4-16.0) gm/dL Hct (34.0-46.0) % RDW (11.5-15.5) % Neutrophils # (1.3-7.7) k/uL Lymphocytes # (1.0-4.8) k/uL Sodium (137-145) mmol/L Chloride (98-107) mmol/L BUN (7-17) mg/dL Creatinine (0.52-1.04) mg/dL Glucose (74-99) mg/dL POC Glucose (mg/dL) 228 H (75-99) mg/dL Total Protein (6.3-8.2) g/dL Albumin (3.5-5.0) g/dL Microbiology - Last 24 Hours (Table) 10/03/18 20:07 Blood Culture - Preliminary Blood No Growth after 120 hours 10/03/18 20:07 Blood Culture - Preliminary Blood No Growth after 120 hours Assessment and Plan Assessment: Impression: 1 acute cardiac arrest during cardiac catheterization and stenting of LAD with prolonged course of CPR 2 acute hypoxic respiratory failure secondary to above 3 coronary artery disease and status post stenting of LAD for mid LAD lesion 4 suspect LV dysfunction and cardiogenic pulmonary edema requiring intubation and mechanical ventilation 5 type 2 diabetes on insulin drip 6 diabetic peripheral neuropathy, restart the Neurontin 7 acute anemia requiring transfusion of 2 units of packed RBCs, most likely secondary to blood loss during Impala catheter removal. 8 acute kidney injury, suspect ATN, improving. 9 difficulty swallowing, failed swallow evaluation, and following the recommendation of speech therapy on the case. Regarding feeding 10 chest wall pain, continue [place] orally. As needed. Recommendation: Continue present supportive care measures, continue present meds, continue to monitor daily electrolytes and renal profile, CBC, continue GI and DVT prophylaxis, continue physical therapy, continue dual platelet therapy, continue Lasix discussed the abnormal barium swallow with the nurses and recommended to follow the speech therapist recommendation. Patient is not quite ready to be moved out of the ICU, however if she continues to improve over the next 24 hours, we'll arrange for the patient to be transferred to a monitor bed on selective. Time with Patient: Less than 30
[2018-10-09 12:51] LABS: Glucose,Whole Blood 284 mg/dL (75-99)
[2018-10-09] MEDS: HYDROcodone/APAP 5-325MG 1 EACH TAB PO PRN ×2 (15:34→21:25)
[2018-10-09 18:05] LABS: Glucose,Whole Blood 228 mg/dL (75-99)
--- NOTE | 2018-10-09 20:10 | PCN ---
PROCEDURE NOTE PREOP DIAGNOSES: Dysphagia, hoarseness. POSTOP DIAGNOSES: Dysphagia, hoarseness. PROCEDURE PERFORMED: Flexible laryngoscopy. ANESTHESIA: None. COMPLICATIONS: None. FINDINGS: See findings in consult note. DESCRIPTION OF PROCEDURE: The patient was in her hospital bed and was in a sitting position. Flexible laryngoscopy was performed through the right nasal cavity which included evaluation of the right nasal cavity, nasopharynx, oropharynx, hypopharynx and larynx with the above- noted findings. The laryngoscope was withdrawn. There was no blood loss or complications. The patient tolerated this well with no complications. MMODL / IJN: [id number] /
--- NOTE | 2018-10-09 20:10 | CONS ---
CONSULTATION REASON FOR CONSULTATION: Dysphagia and stridor. HISTORY: This is a 63-year-old white female who was undergoing a cardiac procedure and elective cardiac catheterization and had a cardiac arrest. This required CPR and intubation as well as mechanical ventilation. She was intubated for approximately 4 days and was extubated. Since that time, she has had some difficulties with dysphagia, particularly with some coughing with swallowing and failed a modified barium swallow. She was also having some hoarseness. She has had occasional stridor but nothing on a regular basis and no particular respiratory difficulty, but is weak overall also. She is on nasal cannula oxygen. PAST MEDICAL HISTORY: Coronary artery disease, hypertension, diabetes, hyperlipidemia, and peripheral neuropathy. There is a also history of TIA. PAST SURGICAL HISTORY: Tubal ligation and cataract surgery. SOCIAL HISTORY: Did smoke. Does not now. none. FAMILY HISTORY: Diabetes and dementia. ALLERGIES: TO STATINS. MEDICATIONS: Are already noted in the chart and therefore not repeated. Note that she is apparently had not had any steroids since her extubation. REVIEW OF SYSTEMS: Noncontributory other than as above. PHYSICAL EXAM: GENERAL: The patient appears drowsy but is arousable and is alert and conversant. HEENT: She has a slight to mild hoarseness. No stridor noted. She does not have any dyspnea particularly. HEAD: Normocephalic and atraumatic. EARS bilaterally canals are clear. Tympanic ,membranes unremarkable. NOSE shows crusting on the anterior nares and dryness from her nasal cannula oxygen with a little bit of old blood but no active bleeding. NASOPHARYNX is unremarkable. OROPHARYNX and oral cavity show dryness but no lesions are noted. HYPOPHARYNX and larynx with flexible laryngoscopy shows what appears to be a partial left vocal cord paresis. There is also bilateral true vocal cord edema which is mild to moderate. Airway otherwise appears patent. NECK: Supple without adenopathy or tenderness. He has a cough. ASSESSMENT: 1. Left vocal cord paresis. 2. Dysphagia. 3. Acute laryngitis secondary to recent intubation. PLAN: Recommended a course of steroids for the edema and see if this will help her also vocal cord mobility potentially was neurapraxia. The intensive care unit nurse is going to contact Dr. Garcia about this in order to obtain a current course of steroids given her other medical issues. As far as her dysphagia, would not restart any nutrition orally until speech therapy sees her again tomorrow. If she continues to fail oral trials and is aspirating, then would need enteral nutrition otherwise and would favor PEG tube rather than temporary NG or Dobbhoff tube as this would make it difficult to continue monitoring of the vocal cords. If there are any questions or concerns, please free to contact me. GA / AYUSH: [id number] /
[2018-10-09] MEDS: DEXAMETHASONE SOD PHOSPHATE 4 MG/ML 1 ML VIAL IV SCH (21:03)
[2018-10-09 21:32] LABS: Glucose,Whole Blood 131 mg/dL (75-99)
[2018-10-09] MEDS: ALPRAZolam 0.25 MG TAB PO PRN (23:02)
[2018-10-10] MEDS: INSULIN DETEMIR (LEVEMIR) 100 UNIT/ML SYR SQ SCH ×2 (00:56→21:39)
[2018-10-10 01:06] LABS: Glucose,Whole Blood 169 mg/dL (75-99)
[2018-10-10] MEDS: DEXAMETHASONE SOD PHOSPHATE 4 MG/ML 1 ML VIAL IV SCH ×5 (01:12→23:23)
[2018-10-10] MEDS: HYDROcodone/APAP 5-325MG 1 EACH TAB PO PRN ×2 (01:23→05:54)
[2018-10-10] MEDS: ALPRAZolam 0.25 MG TAB PO PRN ×2 (04:38→20:06)
[2018-10-10 04:52] LABS: Anisocytosis Slight; Basophils % (A) 0 %; Eosinophils % (A) 0 %; HCT 25.8 % (34.0-46.0); HGB 8.2 gm/dL (11.4-16.0); Hypochromasia Slight; Lymphocytes # (A) 0.8 k/uL (1.0-4.8); Lymphocytes % (A) 7 %; MCH 28.4 pg (25.0-35.0); MCHC 31.7 g/dL (31.0-37.0); MCV 89.5 fL (80.0-100.0); Mean Platelet Volume 7.9; Monocytes # (A) 0.2 k/uL (0-1.0); Monocytes % (A) 2 %; Neutrophils # (A) 9.7 k/uL (1.3-7.7); Neutrophils % (A) 89 %; Platelet Count 322 k/uL (150-450); Poikilocytosis Slight; RBC 2.88 m/uL (3.80-5.40); RDW 16.3 % (11.5-15.5); WBC 10.9 k/uL (3.8-10.6)
[2018-10-10 05:02] LABS: Calcium 9.4 mg/dL (8.4-10.2); Magnesium 1.7 mg/dL (1.6-2.3); Potassium 3.8 mmol/L (3.5-5.1)
[2018-10-10] MEDS: MAGNESIUM SULFATE-D5W PMX 1 GM in DEXTROSE/WATER 1 100ML.BAG IVPB SCH ×2 (05:58→06:59)
[2018-10-10] MEDS: POTASSIUM CHLORIDE 10 MEQ in WATER FOR INJECTION 1 100ML.BAG IVPB SCH ×2 (06:00→06:59)
[2018-10-10] MEDS: METOPROLOL TARTRATE 12.5 MG TAB PO SCH (06:04)
[2018-10-10] MEDS: INSULIN ASPART (NovoLOG) 100 UNIT/ML VIAL SQ SCH ×4 (07:03→21:39)
[2018-10-10 07:06] LABS: Glucose,Whole Blood 227 mg/dL (75-99)
[2018-10-10] MEDS: IPRATROPIUM-ALBUTEROL 3 ML NEB INHALATION SCH ×4 (07:26→19:38)
--- NOTE | 2018-10-10 07:28 | P.PN ---
Subjective Progress Note Date: 10/10/18 Principal diagnosis: Coronary artery disease/cardiogenic shock This is a 63-year-old female patient who was admitted to the hospital yesterday and underwent a heart catheterization on successful stenting of the mid LAD with the procedure was complicated by cardiogenic shock of unknown etiology. An Impella was placed and the patient was intubated and was admitted to the intens marion care unit. On follow-up with the patient today, October 102018, the patient overall is doing better clinically. Her communications is better and her mentation is better as well. Physical therapy is working with the patient. She continues to be in normal sinus mechanism but she is hypertensive and tachycardic and because of that I would increase the dose of metoprolol as well as lisinopril. Beside that she continues to be on dual antiplatelet therapy with a statin. She continues to be hypervolemic and diuresing very well. Because of that I would keep the current dose of Lasix IV and continue Aldactone by mouth. Continue following up with the patient. Objective - Vital Signs Vital signs: Vital Signs Temp 97.9 F 10/10/18 04:00 Pulse 98 10/10/18 07:00 Resp 28 H 10/10/18 07:00 BP 184/114 10/10/18 07:00 Pulse Ox 95 10/10/18 07:00 Intake & Output 10/09/18 10/10/18 10/10/18 18:59 06:59 18:59 Intake Total 210 200 200 Output Total 1455 1605 100 Balance -1245 -1405 100 Weight 95.9 kg Intake: IV 160 200 200 Magnesium Sulfate-D5w Pmx 100 100 100 1 gm In Dextrose/Water 1 100ml.bag @ 100 mls/hr IVPB Q1H [facility] Rx#: [id number] Potassium Chloride 10 meq 100 100 In Water For Injection 1 100ml.bag @ 100 mls/hr IVPB Q1H [facility] Rx#: [id number] Sodium Chloride 0.9% 1, 60 000 ml @ 20 mls/hr IV . Q24H [facility]REG Rx#:[id number] Oral 50 Output: Urine 1455 1605 100 Emesis 0 Other: Voiding Method Indwelling Catheter Indwelling Catheter ABP, PAP, CO, CI - Last Documented Arterial Blood Pressure 99/47 - Constitutional General appearance: Present: no acute distress - Respiratory Respiratory: bilateral: CTA - Cardiovascular Rhythm: regular Heart sounds: normal: S1, S2 - Labs CBC & Chem 7: 10/10/18 04:40 10/10/18 04:40 Labs: Abnormal Lab Results - Last 24 Hours (Table) 10/09/18 10/09/18 10/09/18 Range/Units 12:40 17:52 21:21 WBC (3.8-10.6) k/uL RBC (3.80-5.40) m/uL Hgb (11.4-16.0) gm/dL Hct (34.0-46.0) % RDW (11.5-15.5) % Neutrophils # (1.3-7.7) k/uL Lymphocytes # (1.0-4.8) k/uL Sodium (137-145) mmol/L Carbon Dioxide (22-30) mmol/L BUN (7-17) mg/dL Glucose (74-99) mg/dL POC Glucose (mg/dL) 284 H 228 H 131 H (75-99) mg/dL 10/10/18 10/10/18 10/10/18 Range/Units 00:54 04:40 04:40 WBC 10.9 H (3.8-10.6) k/uL RBC 2.88 L (3.80-5.40) m/uL Hgb 8.2 L (11.4-16.0) gm/dL Hct 25.8 L (34.0-46.0) % RDW 16.3 H (11.5-15.5) % Neutrophils # 9.7 H (1.3-7.7) k/uL Lymphocytes # 0.8 L (1.0-4.8) k/uL Sodium 147 H (137-145) mmol/L Carbon Dioxide 36 H (22-30) mmol/L BUN 31 H (7-17) mg/dL Glucose 196 H (74-99) mg/dL POC Glucose (mg/dL) 169 H (75-99) mg/dL 10/10/18 Range/Units 06:55 WBC (3.8-10.6) k/uL RBC (3.80-5.40) m/uL Hgb (11.4-16.0) gm/dL Hct (34.0-46.0) % RDW (11.5-15.5) % Neutrophils # (1.3-7.7) k/uL Lymphocytes # (1.0-4.8) k/uL Sodium (137-145) mmol/L Carbon Dioxide (22-30) mmol/L BUN (7-17) mg/dL Glucose (74-99) mg/dL POC Glucose (mg/dL) 227 H (75-99) mg/dL Microbiology - Last 24 Hours (Table) 10/03/18 20:07 Blood Culture - Final Blood No Growth after 144 hours 10/03/18 20:07 Blood Culture - Final Blood No Growth after 144 hours Assessment and Plan Assessment: Assessment #1 coronary artery disease and status post PCI of the LAD #2 cardiogenic shock requiring mechanical support #3 acute respiratory failure #4 acute renal failure #5 anemia Plan #1 continue the current dose of Lasix IV #2 replaced electrolytes #3 continue dual antiplatelet therapy with statin #4 increase the dose of metoprolol as well as lisinopril #5 follow-up with the patient
--- NOTE | 2018-10-10 08:09 | CONS ---
CONSULTATION DATE OF CONSULTATION: 10/09/2018 REASON FOR CONSULTATION: Medical management requested by Dr. Grace. CONSULTATION: This is a 63-year-old patient who initially was here for elective cath. The patient's chronic stable medical conditions include COPD, diabetes, hypertension, hyperlipidemia, peripheral neuropathy. The patient is found to have a mid LAD lesion. During the procedure, patient went into cardiac arrest, has angioplasty performed. The patient developed significant hypertension, went into PEA. 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 LAD stent was placed. The patient also had received defibrillation and CPR and patient was intubated. Patient has not been extubated, was having trouble with swallowing and Dr. White did a bedside laryngoscopy. Patient is found to have left-sided vocal cord paralysis and laryngitis. The patient has been made n.p.o. with further evaluation from speech therapy. The patient also had acute kidney injury. Patient remains in the ICU. REVIEW OF SYSTEMS: Attempted for constitutional, cardiovascular, GI, pulmonary; relevant findings as above. CURRENT MEDICATIONS: Reviewed that include: DuoNeb, Xanax, Augmentin, aspirin, Decadron, IV Lasix, Neurontin, [place], Zestril, Lopressor, Protonix, Effient, Aldactone, vancomycin. PHYSICAL EXAMINATION: Temperature 98.3, pulse 93, respiration 21, blood pressure 116/88, pulse ox 99% on 2 L. GENERAL APPEARANCE: Well built, BMI of 42.7. Lying in bed, tired-appearing. EYES: Pupils equal, conjunctivae are normal. HEENT: External appearance of nose and ears normal. Oral cavity normal. NECK: JVD unable to assess. Mass not palpable. RESPIRATORY: Effort increased. LUNGS: Diminished breath sounds. CARDIOVASCULAR: First and second sounds normal. No edema. ABDOMEN: Soft, nontender. Liver and spleen not palpable. PSYCHIATRY: Tired but able to answer questions. NEUROLOGICAL: Hoarse voice, but does move all 4 limbs. INVESTIGATIONS: White count 9.7, hemoglobin 7.9, platelets 245, potassium 3.9, BUN 32, creatinine 1.08. Creatinine had peaked up to 1.89 and it was 0.89 prior to procedure. ASSESSMENT: 1. Acute cardiac arrest during cardiac catheterization and stenting left anterior descending artery. 2. Coronary artery disease with stent to the left anterior descending artery. 3. Acute hypoxic respiratory failure, status post ventilator. 4. Chronic obstructive pulmonary disease in an ex-smoker. 5. Diabetes mellitus type 2, uncontrolled with hypoglycemia. 6. Essential hypertension. 7. Hyperlipidemia. 8. Diabetic peripheral neuropathy. 9. Left vocal cord paralysis, probably from intubation. 10.Acute tubular nephrosis, probably from hypertension with some improvement. 11.Dysphagia with aspiration with thin liquids. 12.Acute blood loss anemia due to acute blood loss . PLAN: Continue current medication and treatment plan. The patient will have a further evaluation by Speech tomorrow to determine if patient can be started on honey-thick liquids. Will give 10 units of Lantus tonight. Activity to be increased as tolerated. Thank you, Dr. Grace. GA / AYUSH: [id number] /
[2018-10-10] MEDS: FUROSEMIDE 10 MG/ML 4 ML VIAL IV SCH (08:57)
[2018-10-10] MEDS: PANTOPRAZOLE 40 MG/10 ML VIAL IVP SCH (09:00)
--- NOTE | 2018-10-10 09:43 | XR ---
EXAMINATION TYPE: XR chest 1V portable DATE OF EXAM: 10/10/2018 COMPARISON: 10/08/2018 HISTORY: Shortness of breath FINDINGS: There are bilateral pleural effusions with cardiomegaly and bibasilar infiltrate. There is a diffuse interstitial pattern. Central line stable. Atherosclerotic change aorta. IMPRESSION: 1. Stable findings most compatible with CHF. No significant interval change. Correlate clinically.
[2018-10-10] MEDS: VANCOMYCIN 1,750 MG in SODIUM CHLORIDE 0.9% 500 ML 500 ML IVPB SCH (09:44)
[2018-10-10] MEDS ORDERED: SODIUM CHLORIDE 0.9% 1,000 ML IV SCH (10:15)
[2018-10-10] MEDS: GABAPENTIN 400 MG CAP PO SCH ×4 (10:19→23:09)
[2018-10-10] MEDS: ASPIRIN 81 MG PO SCH (10:19)
[2018-10-10] MEDS: METOPROLOL TARTRATE 25 MG TAB PO SCH ×2 (10:20→20:06)
[2018-10-10] MEDS: LISINOPRIL 5 MG TAB PO SCH (10:20)
[2018-10-10] MEDS: SPIRONOLACTONE 25 MG TAB PO SCH (10:21)
[2018-10-10] MEDS: PRASUGREL 10 MG TAB PO SCH ×2 (10:21→16:17)
[2018-10-10] MEDS: DEXTROSE 5%-0.45% NACL 1,000 ML IV SCH ×2 (10:22→23:23)
[2018-10-10 11:37] LABS: Glucose,Whole Blood 185 mg/dL (75-99)
--- NOTE | 2018-10-10 12:04 | P.PN ---
Subjective Progress Note Date: 10/10/18 Principal diagnosis: Acute hypoxic respiratory failure secondary to cardiac arrest A 63-year-old female patient with known history of coronary artery disease, hypertension and diabetes mellitus and hyperlipidemia and peripheral neuropathy. She is an ex-smoker. The patient came in for elective cardiac catheterization during which the patient was found to have a mid LAD lesion. During the procedure, the patient went into cardiac arrest. As the angioplasty was being performed, the patient developed profound hypotension and went into a PEA. Note that the patient continued to have on and off hypotension and cardiac arrest for approximately 60 minutes in the [employer] Operator. During the process, the LAD stent was the fluid, resuscitation was done during which the patient received CPR and defibrillation. Pressors were initiated. Patient was intubated. Please refer to the cardiology note regarding the details of the cardiac arrest and resuscitation procedure. Note that in and pallor was also inserted to augment her cardiac output and hemodynamics. I saw the patient immediately after she arrived to the intensive care unit. She was withdrawing to painful stimulation. I had to put that on propofol for sedation and currently propofol is running. 40 g per KG per minute. The patient was intubated on a mechanical ventilator. I noted the blood gases and the patient had a component of respiratory metabolic acidosis. I made the appropriate vent changes and the patient is currently on a VC plus mode with a tidal volume of 450, respiratory rate of 26, FiO2 of 100% with a PEEP of 7. The most recent blood gas showed a pH of 7.29 with a pCO2 of 30 and pO2 of 21 and this was on the fentanyl 100%. FiO2 will be gradually weaned off. Chest x-ray was done and ET tube was in the proximal right mainstem. The tube was withdrawn by around 2 cm. Chest x-ray was consistent with pulmonary edema and the patient was having some frothy rest or secretions in the orotracheal tube. I was informed by cardiology that the patient did not have any coronary dissection or perforation. There was no evidence of a tamponade. No valvular disruption. Impala was in place in the right femoral artery. The patient also had a sheath in the right femoral vein. She has adequate pulses in all 4 extremities. The patient was maintained on a combination of factors including 3 g of norepinephrine infusion and 10 g of levo fed infusion. Urine output has been no other of 30 mL an hour. The patient has been afebrile. She is on dual platelet agents including aspirin and Effient. IV heparin will be also initiated. On 10/03/2018, follow-up. The patient is still intubated on a mechanical ventilator. The patient remains on Impala for hemodynamic support. Clinically she is well sedated and she is calm and comfortable on 50 g of propofol. The patient is intubated on a mechanical ventilator and FiO2 has been drop down to 50% and PEEP is still at 7. I reviewed today's blood gas and the patient is adequate oxygenation with a pO2 of 184. The pH is at 7.47 with a pCO2 of 31. Based on this, drop the FiO2 down to 40% and drop the PEEP down to 5. Chest x- ray shows adequate expansion of both lungs. ET tube is in a good location. The patient has a triple lumen catheter in the left IJ and later on during the day there was some oozing at the catheter insertion site probably related to the use of IV heparin. Hemoglobin dropped down to 8.6 and was still monitoring the hemoglobin. Appropriate dressing has been applied to the left IJ puncture site. The patient is on a combination of pressors and the patient is currently on examination of norepinephrine infusion and epinephrine the dose being titrated to maintain a mean artery pressure above 65. Creatinine is up to 1.4. The patient is producing around 30-40 mL an hour of urine output. She is afebrile. Impala catheter is still in place and the patient is receiving adequate hemodynamic support. CVP earlier was 5 and the patient was given a bolus of 500 mL and the patient is also receiving maintenance fluids of 75 mL an hour. The patient remains on a combination of aspirin, Effient and the patient is also on IV heparin. No fever. No seizure activity. The patient is still sensing painful stimulation she withdraws to painful stimulation all 4 extremities. Pupils are 4 mm in size and reactive to light. The white cell count is up to 22. On 10/04/2018 I'm seeing this patient for a follow-up. The patient is well sedated and patient's, comfortable likely distress. The patient is still on a mechanical ventilator with a vent setting being an FiO2 of 40% with a PEEP of 5 and a tidal volume of 450. The chest x-ray today shows no acute abnormalities. The patient has an ET tube in place. No significant edema pneumonia or effusions. The blood gas showed a pH of 7.39 with a pCO2 of 38 and pO2 of 117. This was done and FiO2 of 40%. CVP is around 8. The patient is on norepinephrine infusion at 0.15 g per KG per minute. Epinephrine drip was discontinued. The plan is to remove the Impala today as the patient is improved hemodynamically. Noted the patient was having some oozing of blood from the puncture site including left IJ and the puncture site in the right femoral area where the femoral sheath and the Impala catheter was inserted. Amount of bleeding is minimal. The patient received 2 units of packed RBC yesterday. Hemoglobin today is at 7.6. Patient will grade temperature spike yesterday and for that reason cultures were sent and the patient was given a dose of vancomycin. White cell count is at 16.3. Otherwise, he is receiving tube feeds at the rate of 25 mL an hour of vital high protein. IV heparin has been discontinued. She remains on a combination of aspirin and Effient. She is on insulin drip for blood sugar control. No other significant events overnight. Atelectatic discussion with cardiology. The plan is to remove the Impala today. Coagulation profile is within normal limits. Platelet count remains at 143. On 10/05/2018 the patient is sedated, comfortable on a mechanical ventilator. Hemodynamically the patient is doing well off Impala. Epinephrine drip. Norepinephrine infusion is running at a low rate and this can be gradually weaned off and discontinued hopefully today. IV fluids are running at the rate of 100 mL an hour of normal saline. The patient has adequate urine output. CVP is at 11. Hemoglobin from this morning was at 5.4 and this is expected to be related to the blood loss that occurred at the time of removal of the Impala as I was told that there was some bleeding encountered while doing this intervention. In any rate, there is no hematoma in the thigh. No active bleeding from the puncture sites whether it's in the right groin or in the left IJ area. The patient will be receiving a total of 2 units of packed RBC. No fever. No chills. Cultures of been negative. Cardiac rhythm is still sinus. He remains on a mechanical ventilator. Vent settings are essentially the same and the patient remains on assist control mode of ventilation with a tidal volume of 450, FiO2 of 40% with a PEEP of 5 and the rate of extreme. Chest x- ray shows no acute abnormalities. The patient is tolerating her tube feeds. The plan is to get the patient packed RBC transfusion and following that the patient will be receiving a spontaneous breathing trial to assess her candidacy for further weaning off the mechanical ventilator. On 10/06/2018, seeing this patient for a follow-up. The patient doing extremely well. She is on no pressors for now. Earlier this morning she was given a dose of Lasix 20 mg IV push and she is producing excellent urine output. She is taken off sedation the patient is gradually waking up and following commands. She is moving all 4 extremities. I am in the process of taking this patient off sedation and if she is fully awake, weaning parameters will be checked and the patient will be considered for extubation today. Note that she is hemodynamically stable. No signs of bleeding. Hemoglobin is stable. No fever. No chills. Her hemoglobin stable at 7.0. Cardiac rhythm is normal sinus mechanism. She seems to be recovering from a cardiogenic shock and the Impala a nd the presence of been all discontinued. The sputum sample is positive for Haemophilus influenza. She is on a combination of aspirin and Effient. Chest x-ray showing some small effusion the lung bases and atelectasis. Otherwise the chest x-ray is within normal limits. IV heparin has been discontinued. On 10/07/2018, patient remains in the ICU, she was extubated yesterday, not requiring any pressors, remains on diuretics, she has fairly good urine output. Family is at bedside, and they were all updated on her condition. Patient is awake, following simple instructions, seems to be generally weak, and has a weak cough. CBC is relatively normal however hemoglobin is 7.8, electrolytes are normal BUN is 40 creatinine 1.27. Chest x-ray continues to show bilateral patchy interstitial opacities reflecting some component of pulmonary edema . Small effusions also noted. Patient is hemodynamically stable, follow-up echocardiogram is pending to document if there is any improvement in LV function Reevaluated today on 10/08/2018, patient continues to tolerate the extubation. Not requiring any pressors, she has some difficulty swallowing, and we are addressing that with speech therapy, may need a modified barium swallow. Patient has a very weak cough, she remained generally weak. Continues to diurese well with Lasix, her renal functioning seems to be stable. Her chest x- ray is showing definite improvement. BUN is 35 creatinine is 1.17. Chest x-ray is suggestive of CHF and bibasilar atelectasis. Reevaluated today on 10/09/2018, patient remains in the ICU, hemodynamically stab le, in no form of respiratory distress, being followed by cardiology regarding her initial cardiac event. Patient remains hemodynamically stable, hemoglobin is stable, electrolytes are normal, patient is having chest pain, musculoskeletal from CPR. BUN is 32 creatinine 1.08, I have discontinued her IV Dilaudid, and recommended oral Lamont. Seems to be generally weak, will definitely need a significant effort by physical therapy to optimize her physical status. No chest x-ray was done today. She failed the swallow evaluation, and now she is receiving nectar thick liquids. Patient was reevaluated today on 10/10/2018, she seems to be more short of breath today than she has been over the last few days. Patient seems to have difficulty with cough, her voice remains hoarse, her cough is extremely weak, and now she seems to have more wheezing and she had over the last few days. Clinically the patient seems to be dehydrated, hence I recommended cutting down the diuretics, and we'll cautiously hydrate the patient with D5 4 5 at 75 mL per hour. Patient remains in sinus rhythm, she is tachycardic, and hypertensive, metoprolol and lisinopril were increased. Remains on dual antiplatelet therapy. Her chest x-ray continues to show improvement, no clear-cut evidence of pulmonary edema on the chest x-ray today. Hence I felt that the patient would benefit from hydration, she would likely benefit from resting on BiPAP, seems to be working much harder today to breathe. And she was placed yesterday on Decadron. Which will be continued may cut down on the dose in the next 24 hours this is based on the recommendation of the ENT who saw the patient yesterday. CBC is relatively normal hemoglobin is 8.2 sodium is 147 BUN is 31 creatinine 0.97. Objective - Vital Signs Vital signs: Vital Signs Temp 97.9 F 10/10/18 08:00 Pulse 75 10/10/18 11:19 Resp 24 10/10/18 11:00 BP 162/87 10/10/18 11:00 Pulse Ox 99 10/10/18 11:00 Intake & Output 10/09/18 10/10/18 10/10/18 18:59 06:59 18:59 Intake Total 210 200 650 Output Total 1455 1605 970 Balance -1245 -1405 -320 Weight 95.9 kg Intake: IV 160 200 350 Dextrose 5%-0.45% NaCl 1, 150 000 ml @ 75 mls/hr IV . [id number] [facility] Rx#:[id number] Magnesium Sulfate-D5w Pmx 100 100 100 1 gm In Dextrose/Water 1 100ml.bag @ 100 mls/hr IVPB Q1H [facility] Rx#: [id number] Potassium Chloride 10 meq 100 100 In Water For Injection 1 100ml.bag @ 100 mls/hr IVPB Q1H [facility] Rx#: [id number] Sodium Chloride 0.9% 1, 60 000 ml @ 20 mls/hr IV . Q24H [facility] Rx#:[id number] Intake, IV Titration 300 Amount Vancomycin 1,750 mg In 300 Sodium Chloride 0.9% 500 ml 500 ml @ 167 mls/hr IVPB Q24HR [facility] Rx#: [id number] Oral 50 Output: Urine 1455 1605 970 Emesis 0 Other: Voiding Method Indwelling Catheter Indwelling Catheter Indwelling Catheter ABP, PAP, CO, CI - Last Documented Arterial Blood Pressure 99/47 - Exam Physical Exam: Revealed a 63-year-old female, obese, generally weak, noted to be more tachypneic and wheezing today Head: Atraumatic, normocephalic. HEENT:[Neck is supple.] [No neck masses.] [No thyromegaly.] [No JVD.] PERRLA, EOMI, no icterus. Left IJ triple-lumen catheter is noted. Extremely dry mucous membranes were noted. No evidence of thrush Chest: [Rhonchi and wheezes noted bilaterally more so on forced expiratory ma neuver.] Cardiac Exam: [Normal S1 and S2, no S3 gallop, no murmur.] Abdomen: [Obese, Soft, nontender, no megaly, no rebound, no guarding, normal bowel sounds.] Extremities: [No clubbing, 1+ bipedal in upper and lower extremities, no cyanosis.] Neurological Exam: Generally weak, follows simple instructions, [No focal neurologic deficit.] Psychiatric: Normal mood affect and mental status examination. Skin: No rashes. Lymphatics: No lymphadenopathy - Labs CBC & Chem 7: 05/09/19 04:40 10/10/18 04:40 Labs: Abnormal Lab Results - Last 24 Hours (Table) 10/09/18 10/09/18 10/09/18 Range/Units 12:40 17:52 21:21 WBC (3.8-10.6) k/uL RBC (3.80-5.40) m/uL Hgb (11.4-16.0) gm/dL Hct (34.0-46.0) % RDW (11.5-15.5) % Neutrophils # (1.3-7.7) k/uL Lymphocytes # (1.0-4.8) k/uL Sodium (137-145) mmol/L Carbon Dioxide (22-30) mmol/L BUN (7-17) mg/dL Glucose (74-99) mg/dL POC Glucose (mg/dL) 284 H 228 H 131 H (75-99) mg/dL 10/10/18 10/10/18 10/10/18 Range/Units 00:54 04:40 04:40 WBC 10.9 H (3.8-10.6) k/uL RBC 2.88 L (3.80-5.40) m/uL Hgb 8.2 L (11.4-16.0) gm/dL Hct 25.8 L (34.0-46.0) % RDW 16.3 H (11.5-15.5) % Neutrophils # 9.7 H (1.3-7.7) k/uL Lymphocytes # 0.8 L (1.0-4.8) k/uL Sodium 147 H (137-145) mmol/L Carbon Dioxide 36 H (22-30) mmol/L BUN 31 H (7-17) mg/dL Glucose 196 H (74-99) mg/dL POC Glucose (mg/dL) 169 H (75-99) mg/dL 10/10/18 10/10/18 Range/Units 06:55 11:25 WBC (3.8-10.6) k/uL RBC (3.80-5.40) m/uL Hgb (11.4-16.0) gm/dL Hct (34.0-46.0) % RDW (11.5-15.5) % Neutrophils # (1.3-7.7) k/uL Lymphocytes # (1.0-4.8) k/uL Sodium (137-145) mmol/L Carbon Dioxide (22-30) mmol/L BUN (7-17) mg/dL Glucose (74-99) mg/dL POC Glucose (mg/dL) 227 H 185 H (75-99) mg/dL Microbiology - Last 24 Hours (Table) 10/03/18 20:07 Blood Culture - Final Blood No Growth after 144 hours 10/03/18 20:07 Blood Culture - Final Blood No Growth after 144 hours Assessment and Plan Assessment: Impression: 1 acute cardiac arrest during cardiac catheterization and stenting of LAD with prolonged course of CPR 2 acute hypoxic respiratory failure secondary to above 3 coronary artery disease and status post stenting of LAD for mid LAD lesion 4 suspect LV dysfunction and cardiogenic pulmonary edema requiring intubation and mechanical ventilation 5 type 2 diabetes on insulin drip 6 diabetic peripheral neuropathy, restart the Neurontin 7 acute anemia requiring transfusion of 2 units of packed RBCs, most likely secondary to blood loss during Impala catheter removal. 8 acute kidney injury, suspect ATN, improving. 9 difficulty swallowing, failed swallow evaluation, and following the recommendation of speech therapy on the case. Regarding feeding 10 chest wall pain, continue Lamont orally. As needed. Recommendation: Continue present supportive care measures, continue present meds, continue to monitor daily electrolytes and renal profile, CBC, continue GI and DVT prophylaxis, continue physical therapy, continue dual anti-platelet therapy, Decreased the dose of Lasix, and hydrate cautiously with D5 4 5 at 75 mL per hour Patient is not quite ready to be moved out of the ICU, we will address today on BiPAP, we'll continue to follow closely, prognosis remains extremely poor and guarded. Time with Patient: Less than 30
[2018-10-10] MEDS ORDERED: hydrALAZINE HCL 20 MG/ML 1 ML VIAL IVP PRN (15:29)
[2018-10-10 17:41] LABS: Glucose,Whole Blood 221 mg/dL (75-99)
[2018-10-10] MEDS ORDERED: DEXAMETHASONE SOD PHOSPHATE 4 MG/ML 1 ML VIAL IV SCH (20:00)
[2018-10-10 21:48] LABS: Glucose,Whole Blood 250 mg/dL (75-99)
[2018-10-11] MEDS: HYDROcodone/APAP 5-325MG 1 EACH TAB PO PRN ×3 (02:20→22:13)
[2018-10-11 05:13] LABS: Anisocytosis Slight; Basophils % (A) 0 %; Eosinophils % (A) 0 %; HCT 22.5 % (34.0-46.0); HGB 7.2 gm/dL (11.4-16.0); Hypochromasia Slight; Lymphocytes # (A) 0.6 k/uL (1.0-4.8); Lymphocytes % (A) 7 %; MCHC 32.2 g/dL (31.0-37.0); MCV 90.1 fL (80.0-100.0); Monocytes # (A) 0.3 k/uL (0-1.0); Monocytes % (A) 4 %; Neutrophils # (A) 7.1 k/uL (1.3-7.7); Neutrophils % (A) 87 %; Platelet Count 340 k/uL (150-450); Poikilocytosis Slight; RBC 2.49 m/uL (3.80-5.40); RDW 16.2 % (11.5-15.5); WBC 8.1 k/uL (3.8-10.6)
[2018-10-11 05:22] LABS: Calcium 9.1 mg/dL (8.4-10.2); Magnesium 1.8 mg/dL (1.6-2.3); Potassium 3.5 mmol/L (3.5-5.1)
[2018-10-11] MEDS: MAGNESIUM SULFATE-D5W PMX 1 GM in DEXTROSE/WATER 1 100ML.BAG IVPB SCH ×2 (05:54→07:20)
[2018-10-11] MEDS: POTASSIUM CHLORIDE 10 MEQ in WATER FOR INJECTION 1 100ML.BAG IVPB SCH ×4 (05:54→09:27)
[2018-10-11] MEDS: DEXAMETHASONE SOD PHOSPHATE 4 MG/ML 1 ML VIAL IV SCH ×3 (05:57→17:36)
--- NOTE | 2018-10-11 06:11 | PN ---
PROGRESS NOTE DATE OF SERVICE: 10/10/2018 PRESENTING COMPLAINT: Tired. INTERVAL HISTORY: This is a patient status post cardiac arrest during LAD angioplasty. Also had a PEA and episode. 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 The patient became tachypneic this morning. Did require a BiPAP. Tired. REVIEW OF SYSTEMS: Review of systems was attempted for constitutional, cardiovascular, GI, pulmonary; relevant findings as above. CURRENT MEDICATIONS: Current medications are reviewed. PHYSICAL EXAMINATION: On examination, temperature 98.6, pulse 94, respiration 20, blood pressure 169/86, pulse ox 98% on Ventimask. GENERAL APPEARANCE: Lying in bed, lethargic, but arousable. EYES: Pupils equal. Conjunctivae normal. NECK: JVD unable to assess. Mass not palpable. RESPIRATORY: Effort increased. LUNGS: Decreased breath sounds. CARDIOVASCULAR: First and second sounds normal. No edema. ABDOMEN: Soft, nontender. Liver and spleen not palpable. PSYCHIATRY: Tired, but arousable. INVESTIGATIONS: White count 10.9, hemoglobin 8.2, platelets 322. Potassium 3.8, BUN 31, creatinine 0.97. Accu-Cheks are noted. ASSESSMENT: 1. Cardiac arrest during cardiac catheterization during stenting of LAD. 2. Coronary artery disease with stent to the LAD. 3. Acute hypoxic respiratory failure status post ventilator, now on Ventimask. 4. Chronic obstructive pulmonary disease in an ex-smoker. 5. Diabetes mellitus type 2 uncontrolled with hypoglycemia. 6. Essential hypertension. 7. Hyperlipidemia. 8. Diabetic peripheral neuropathy. 9. Left vocal cord paralysis, probably from intubation. 10.Acute tubular necrosis, probably from hypotension. 11.Dysphagia with aspiration with thin liquids. 12.Acute blood-loss anemia as expected from surgery. PLAN: Continue current medication and treatment plan. The patient is a high risk for aspiration per Speech. We will check with Dr. Garcia if it is okay to start the patient on a TPN lipids, proceed from there. MMODL / IJN: [id number] /
--- NOTE | 2018-10-11 07:00 | P.PN ---
Subjective Progress Note Date: 10/11/18 Principal diagnosis: Coronary artery disease/cardiogenic shock This is a 63-year-old female patient who was admitted to the hospital yesterday and underwent a heart catheterization on successful stenting of the mid LAD with the procedure was complicated by cardiogenic shock of unknown etiology. An Impella was placed and the patient was intubated and was admitted to the intens [facility] care unit. On follow-up with the patient today, October [id number], the patient is doing better clinically. Hemodynamically she continues to be stable. There was some issue with the swallow yesterday but she was able to take and swallow her pills as normal. She continues to be on dual antiplatelet therapy along with a statin. The Lasix IV was systolic yesterday because it was felt by the critical care team that the patient was on the dry side. When I examine her today she seems to be slightly hypervolemic. I am going to obtain a BNP. We'll follow-up on the chest x-ray. Objective - Vital Signs Vital signs: Vital Signs Temp 96.8 F L 10/11/18 04:00 Pulse 75 10/11/18 05:00 Resp 16 10/11/18 05:00 BP 135/68 10/11/18 05:00 Pulse Ox 98 10/11/18 04:30 Intake & Output 10/10/18 10/10/18 10/11/18 06:59 18:59 06:59 Intake Total 200 1175 750 Output Total 1605 2470 415 Balance -1405 -1295 335 Weight 94.8 kg Intake: IV 200 875 750 Dextrose 5%-0.45% NaCl 1, 675 750 000 ml @ 75 mls/hr IV . [id number] GREG Rx#:[id number] Magnesium Sulfate-D5w Pmx 100 100 1 gm In Dextrose/Water 1 100ml.bag @ 100 mls/hr IVPB Q1H GREG Rx#: [id number] Potassium Chloride 10 meq 100 100 In Water For Injection 1 100ml.bag @ 100 mls/hr IVPB Q1H GREG Rx#: [id number] Intake, IV Titration 300 Amount Vancomycin 1,750 mg In 300 Sodium Chloride 0.9% 500 ml 500 ml @ 167 mls/hr IVPB Q24HR GREG Rx#: [id number] Output: Urine 1605 2470 415 Emesis 0 0 Other: Voiding Method Indwelling Catheter Indwelling Catheter ABP, PAP, CO, CI - Last Documented Arterial Blood Pressure 99/47 - Constitutional General appearance: Present: no acute distress - Respiratory Respiratory: bilateral: CTA - Cardiovascular Rhythm: regular Heart sounds: normal: S1, S2 - Labs CBC & Chem 7: 10/11/18 05:00 10/11/18 05:00 Labs: Abnormal Lab Results - Last 24 Hours (Table) 10/10/18 10/10/18 10/10/18 Range/Units 06:55 11:25 17:29 RBC (3.80-5.40) m/uL Hgb (11.4-16.0) gm/dL Hct (34.0-46.0) % RDW (11.5-15.5) % Lymphocytes # (1.0-4.8) k/uL Carbon Dioxide (22-30) mmol/L BUN (7-17) mg/dL Glucose (74-99) mg/dL POC Glucose (mg/dL) 227 H 185 H 221 H (75-99) mg/dL 10/10/18 10/11/18 10/11/18 Range/Units 21:36 05:00 05:00 RBC 2.49 L (3.80-5.40) m/uL Hgb 7.2 L (11.4-16.0) gm/dL Hct 22.5 L (34.0-46.0) % RDW 16.2 H (11.5-15.5) % Lymphocytes # 0.6 L (1.0-4.8) k/uL Carbon Dioxide 36 H (22-30) mmol/L BUN 33 H (7-17) mg/dL Glucose 184 H (74-99) mg/dL POC Glucose (mg/dL) 250 H (75-99) mg/dL Assessment and Plan Assessment: Assessment #1 coronary artery disease and status post PCI of the LAD #2 cardiogenic shock requiring mechanical support #3 acute respiratory failure #4 acute renal failure #5 anemia Plan #1 continue the current medical regimen #2 continue Aldactone #3 continue dual antiplatelet therapy with a statin #4 obtain a BNP.
[2018-10-11] MEDS: IPRATROPIUM-ALBUTEROL 3 ML NEB INHALATION SCH ×4 (07:28→21:01)
[2018-10-11 07:39] LABS: Glucose,Whole Blood 257 mg/dL (75-99)
--- NOTE | 2018-10-11 08:09 | XR ---
EXAMINATION TYPE: XR chest 1V portable DATE OF EXAM: 10/11/2018 COMPARISON: 10/10/2018 HISTORY: Shortness of breath TECHNIQUE: Single frontal view of the chest is obtained. FINDINGS: There are bilateral pleural effusions with cardiomegaly and bibasilar infiltrate. There is a diffuse interstitial pattern. Central line stable. Atherosclerotic change aorta. IMPRESSION: Stable findings most compatible with CHF. No significant interval change. Correlate clinically.
[2018-10-11] MEDS: INSULIN ASPART (NovoLOG) 100 UNIT/ML VIAL SQ SCH ×3 (08:15→22:12)
[2018-10-11] MEDS ORDERED: FUROSEMIDE 10 MG/ML 4 ML VIAL IV SCH (09:00)
[2018-10-11 09:27] VITALS: BMI 42.5
[2018-10-11] MEDS: SPIRONOLACTONE 25 MG TAB PO SCH (09:34)
[2018-10-11] MEDS: METOPROLOL TARTRATE 25 MG TAB PO SCH ×2 (09:34→20:42)
[2018-10-11] MEDS: GABAPENTIN 400 MG CAP PO SCH ×4 (09:34→22:13)
[2018-10-11] MEDS: LISINOPRIL 5 MG TAB PO SCH (09:34)
[2018-10-11] MEDS: PANTOPRAZOLE 40 MG/10 ML VIAL IVP SCH (09:35)
[2018-10-11] MEDS: PRASUGREL 10 MG TAB PO SCH (09:35)
[2018-10-11] MEDS: ASPIRIN 81 MG PO SCH (09:36)
[2018-10-11] MEDS: VANCOMYCIN 1,750 MG in SODIUM CHLORIDE 0.9% 500 ML 500 ML IVPB SCH (09:39)
[2018-10-11] MEDS: FUROSEMIDE 10 MG/ML 2 ML VIAL IV SCH ×2 (11:24→20:41)
[2018-10-11 11:57] LABS: Glucose,Whole Blood 222 mg/dL (75-99)
--- NOTE | 2018-10-11 12:44 | P.PN ---
Subjective Progress Note Date: 10/11/18 Principal diagnosis: Acute hypoxic respiratory failure secondary to cardiac arrest A 63-year-old female patient with known history of coronary artery disease, hypertension and diabetes mellitus and hyperlipidemia and peripheral neuropathy. She is an ex-smoker. The patient came in for elective cardiac catheterization during which the patient was found to have a mid LAD lesion. During the procedure, the patient went into cardiac arrest. As the angioplasty was being performed, the patient developed profound hypotension and went into a PEA. Note that the patient continued to have on and off hypotension and cardiac arrest for approximately 60 minutes in the Hydrogenation Operator. During the process, the LAD stent was the fluid, resuscitation was done during which the patient received CPR and defibrillation. Pressors were initiated. Patient was intubated. Please refer to the cardiology note regarding the details of the cardiac arrest and resuscitation procedure. Note that in and pallor was also inserted to augment her cardiac output and hemodynamics. I saw the patient immediately after she arrived to the intensive care unit. She was withdrawing to painful stimulation. I had to put that on propofol for sedation and currently propofol is running. 40 g per KG per minute. The patient was intubated on a mechanical ventilator. I noted the blood gases and the patient had a component of respiratory metabolic acidosis. I made the appropriate vent changes and the patient is currently on a VC plus mode with a tidal volume of 450, respiratory rate of 26, FiO2 of 100% with a PEEP of 7. The most recent blood gas showed a pH of 7.29 with a pCO2 of 30 and pO2 of 21 and this was on the fentanyl 100%. FiO2 will be gradually weaned off. Chest x-ray was done and ET tube was in the proximal right mainstem. The tube was withdrawn by around 2 cm. Chest x-ray was consistent with pulmonary edema and the patient was having some frothy rest or secretions in the orotracheal tube. I was informed by cardiology that the patient did not have any coronary dissection or perforation. There was no evidence of a tamponade. No valvular disruption. Impala was in place in the right femoral artery. The patient also had a sheath in the right femoral vein. She has adequate pulses in all 4 extremities. The patient was maintained on a combination of factors including 3 g of norepinephrine infusion and 10 g of levo fed infusion. Urine output has been no other of 30 mL an hour. The patient has been afebrile. She is on dual platelet agents including aspirin and Effient. IV heparin will be also initiated. On 10/03/2018, follow-up. The patient is still intubated on a mechanical ventilator. The patient remains on Impala for hemodynamic support. Clinically she is well sedated and she is calm and comfortable on 50 g of propofol. The patient is intubated on a mechanical ventilator and FiO2 has been drop down to 50% and PEEP is still at 7. I reviewed today's blood gas and the patient is adequate oxygenation with a pO2 of 184. The pH is at 7.47 with a pCO2 of 31. Based on this, drop the FiO2 down to 40% and drop the PEEP down to 5. Chest x- ray shows adequate expansion of both lungs. ET tube is in a good location. The patient has a triple lumen catheter in the left IJ and later on during the day there was some oozing at the catheter insertion site probably related to the use of IV heparin. Hemoglobin dropped down to 8.6 and was still monitoring the hemoglobin. Appropriate dressing has been applied to the left IJ puncture site. The patient is on a combination of pressors and the patient is currently on examination of norepinephrine infusion and epinephrine the dose being titrated to maintain a mean artery pressure above 65. Creatinine is up to 1.4. The patient is producing around 30-40 mL an hour of urine output. She is afebrile. Impala catheter is still in place and the patient is receiving adequate hemodynamic support. CVP earlier was 5 and the patient was given a bolus of 500 mL and the patient is also receiving maintenance fluids of 75 mL an hour. The patient remains on a combination of aspirin, Effient and the patient is also on IV heparin. No fever. No seizure activity. The patient is still sensing painful stimulation she withdraws to painful stimulation all 4 extremities. Pupils are 4 mm in size and reactive to light. The white cell count is up to 22. On 10/04/2018 I'm seeing this patient for a follow-up. The patient is well sedated and patient's, comfortable likely distress. The patient is still on a mechanical ventilator with a vent setting being an FiO2 of 40% with a PEEP of 5 and a tidal volume of 450. The chest x-ray today shows no acute abnormalities. The patient has an ET tube in place. No significant edema pneumonia or effusions. The blood gas showed a pH of 7.39 with a pCO2 of 38 and pO2 of 117. This was done and FiO2 of 40%. CVP is around 8. The patient is on norepinephrine infusion at 0.15 g per KG per minute. Epinephrine drip was discontinued. The plan is to remove the Impala today as the patient is improved hemodynamically. Noted the patient was having some oozing of blood from the puncture site including left IJ and the puncture site in the right femoral area where the femoral sheath and the Impala catheter was inserted. Amount of bleeding is minimal. The patient received 2 units of packed RBC yesterday. Hemoglobin today is at 7.6. Patient will grade temperature spike yesterday and for that reason cultures were sent and the patient was given a dose of vancomycin. White cell count is at 16.3. Otherwise, he is receiving tube feeds at the rate of 25 mL an hour of vital high protein. IV heparin has been discontinued. She remains on a combination of aspirin and Effient. She is on insulin drip for blood sugar control. No other significant events overnight. Atelectatic discussion with cardiology. The plan is to remove the Impala today. Coagulation profile is within normal limits. Platelet count remains at 143. On 10/05/2018 the patient is sedated, comfortable on a mechanical ventilator. Hemodynamically the patient is doing well off Impala. Epinephrine drip. Norepinephrine infusion is running at a low rate and this can be gradually weaned off and discontinued hopefully today. IV fluids are running at the rate of 100 mL an hour of normal saline. The patient has adequate urine output. CVP is at 11. Hemoglobin from this morning was at 5.4 and this is expected to be related to the blood loss that occurred at the time of removal of the Impala as I was told that there was some bleeding encountered while doing this intervention. In any rate, there is no hematoma in the thigh. No active bleeding from the puncture sites whether it's in the right groin or in the left IJ area. The patient will be receiving a total of 2 units of packed RBC. No fever. No chills. Cultures of been negative. Cardiac rhythm is still sinus. He remains on a mechanical ventilator. Vent settings are essentially the same and the patient remains on assist control mode of ventilation with a tidal volume of 450, FiO2 of 40% with a PEEP of 5 and the rate of extreme. Chest x- ray shows no acute abnormalities. The patient is tolerating her tube feeds. The plan is to get the patient packed RBC transfusion and following that the patient will be receiving a spontaneous breathing trial to assess her candidacy for further weaning off the mechanical ventilator. On 10/06/2018, seeing this patient for a follow-up. The patient doing extremely well. She is on no pressors for now. Earlier this morning she was given a dose of Lasix 20 mg IV push and she is producing excellent urine output. She is taken off sedation the patient is gradually waking up and following commands. She is moving all 4 extremities. I am in the process of taking this patient off sedation and if she is fully awake, weaning parameters will be checked and the patient will be considered for extubation today. Note that she is hemodynamically stable. No signs of bleeding. Hemoglobin is stable. No fever. No chills. Her hemoglobin stable at 7.0. Cardiac rhythm is normal sinus mechanism. She seems to be recovering from a cardiogenic shock and the Impala a nd the presence of been all discontinued. The sputum sample is positive for Haemophilus influenza. She is on a combination of aspirin and Effient. Chest x-ray showing some small effusion the lung bases and atelectasis. Otherwise the chest x-ray is within normal limits. IV heparin has been discontinued. On 10/07/2018, patient remains in the ICU, she was extubated yesterday, not requiring any pressors, remains on diuretics, she has fairly good urine output. Family is at bedside, and they were all updated on her condition. Patient is awake, following simple instructions, seems to be generally weak, and has a weak cough. CBC is relatively normal however hemoglobin is 7.8, electrolytes are normal BUN is 40 creatinine 1.27. Chest x-ray continues to show bilateral patchy interstitial opacities reflecting some component of pulmonary edema . Small effusions also noted. Patient is hemodynamically stable, follow-up echocardiogram is pending to document if there is any improvement in LV function Reevaluated today on 10/08/2018, patient continues to tolerate the extubation. Not requiring any pressors, she has some difficulty swallowing, and we are addressing that with speech therapy, may need a modified barium swallow. Patient has a very weak cough, she remained generally weak. Continues to diurese well with Lasix, her renal functioning seems to be stable. Her chest x- ray is showing definite improvement. BUN is 35 creatinine is 1.17. Chest x-ray is suggestive of CHF and bibasilar atelectasis. Reevaluated today on 10/09/2018, patient remains in the ICU, hemodynamically stab le, in no form of respiratory distress, being followed by cardiology regarding her initial cardiac event. Patient remains hemodynamically stable, hemoglobin is stable, electrolytes are normal, patient is having chest pain, musculoskeletal from CPR. BUN is 32 creatinine 1.08, I have discontinued her IV Dilaudid, and recommended oral [place]. Seems to be generally weak, will definitely need a significant effort by physical therapy to optimize her physical status. No chest x-ray was done today. She failed the swallow evaluation, and now she is receiving nectar thick liquids. Patient was reevaluated today on 10/10/2018, she seems to be more short of breath today than she has been over the last few days. Patient seems to have difficulty with cough, her voice remains hoarse, her cough is extremely weak, and now she seems to have more wheezing and she had over the last few days. Clinically the patient seems to be dehydrated, hence I recommended cutting down the diuretics, and we'll cautiously hydrate the patient with D5 4 5 at 75 mL per hour. Patient remains in sinus rhythm, she is tachycardic, and hypertensive, metoprolol and lisinopril were increased. Remains on dual antiplatelet therapy. Her chest x-ray continues to show improvement, no clear-cut evidence of pulmonary edema on the chest x-ray today. Hence I felt that the patient would benefit from hydration, she would likely benefit from resting on BiPAP, seems to be working much harder today to breathe. And she was placed yesterday on Decadron. Which will be continued may cut down on the dose in the next 24 hours this is based on the recommendation of the ENT who saw the patient yesterday. CBC is relatively normal hemoglobin is 8.2 sodium is 147 BUN is 31 creatinine 0.97. Patient was reevaluated today on 10/11/2018, remains in the ICU, she has been intermittently on BiPAP. She was cautiously hydrated yesterday, seems to be doing much better today, less short of breath, her voice seems to be even getting better. Patient remained generally weak, continues to have some issues with swallowing, and she was placed on enteral feeding Her chest x-ray did show some slight interstitial edema, hence I recommended Lasix to be restarted at 20 mg IV push every 12 hours. Labs were reviewed sodium is 145 BUN is 33 creatinine 0.95 and hemoglobin is 7.2. Objective - Vital Signs Vital signs: Vital Signs Temp 97.0 F L 10/11/18 08:00 Pulse 73 10/11/18 12:00 Resp 20 10/11/18 12:00 BP 149/75 10/11/18 12:00 Pulse Ox 99 10/11/18 11:00 Intake & Output 10/10/18 10/11/18 10/11/18 18:59 06:59 18:59 Intake Total 1175 900 950 Output Total 2470 470 390 Balance -1295 430 560 Weight 94.8 kg 95.4 kg Intake: IV 875 900 450 Dextrose 5%-0.45% NaCl 1, 675 900 450 000 ml @ 75 mls/hr IV . [id number] GREG Rx#:[id number] Magnesium Sulfate-D5w Pmx 100 1 gm In Dextrose/Water 1 100ml.bag @ 100 mls/hr IVPB Q1H [facility]REG Rx#: [id number] Potassium Chloride 10 meq 100 In Water For Injection 1 100ml.bag @ 100 mls/hr IVPB Q1H [facility]REG Rx#: [id number] Intake, IV Titration 300 500 Amount Potassium Chloride 10 meq 200 In Water For Injection 1 100ml.bag @ 100 mls/hr IVPB Q1HR [facility]REG Rx#: [id number] Vancomycin 1,750 mg In 300 300 Sodium Chloride 0.9% 500 ml 500 ml @ 167 mls/hr IVPB Q24HR GREG Rx#: [id number] Output: Urine 2470 470 390 Emesis 0 Other: Voiding Method Indwelling Catheter Indwelling Catheter Indwelling Catheter ABP, PAP, CO, CI - Last Documented Arterial Blood Pressure 99/47 - Exam Physical Exam: Revealed a 63-year-old female, obese, generally weak, on BiPAP, intermittently [id number] on nasal cannula and BiPAP Head: Atraumatic, normocephalic. HEENT:[Neck is supple.] [No neck masses.] [No thyromegaly.] [No JVD.] PERRLA, EOMI, no icterus. Left IJ triple-lumen catheter is noted. Moist mucous membranes, no thrush noted. Chest: [Minimal crackles at the bases, no wheezes, no rhonchi noted today..] Cardiac Exam: [Normal S1 and S2, no S3 gallop, no murmur.] Abdomen: [Obese, Soft, nontender, no megaly, no rebound, no guarding, normal bowel sounds.] Extremities: [No clubbing, 1+ bipedal in upper and lower extremities, no cyanosis.] Neurological Exam: Generally weak, follows simple instructions, [No focal neurologic deficit.] Psychiatric: Normal mood affect and mental status examination. Skin: No rashes. Lymphatics: No lymphadenopathy - Labs CBC & Chem 7: 10/11/18 05:00 10/11/18 05:00 Labs: Abnormal Lab Results - Last 24 Hours (Table) 10/10/18 10/10/18 10/11/18 Range/Units 17:29 21:36 05:00 RBC 2.49 L (3.80-5.40) m/uL Hgb 7.2 L (11.4-16.0) gm/dL Hct 22.5 L (34.0-46.0) % RDW 16.2 H (11.5-15.5) % Lymphocytes # 0.6 L (1.0-4.8) k/uL Carbon Dioxide (22-30) mmol/L BUN (7-17) mg/dL Glucose (74-99) mg/dL POC Glucose (mg/dL) 221 H 250 H (75-99) mg/dL 10/11/18 10/11/18 10/11/18 Range/Units 05:00 07:27 11:46 RBC (3.80-5.40) m/uL Hgb (11.4-16.0) gm/dL Hct (34.0-46.0) % RDW (11.5-15.5) % Lymphocytes # (1.0-4.8) k/uL Carbon Dioxide 36 H (22-30) mmol/L BUN 33 H (7-17) mg/dL Glucose 184 H (74-99) mg/dL POC Glucose (mg/dL) 257 H 222 H (75-99) mg/dL Assessment and Plan Assessment: Impression: 1 acute cardiac arrest during cardiac catheterization and stenting of LAD with prolonged course of CPR 2 acute hypoxic respiratory failure secondary to above 3 coronary artery disease and status post stenting of LAD for mid LAD lesion 4 suspect LV dysfunction and cardiogenic pulmonary edema requiring intubation and mechanical ventilation 5 type 2 diabetes on insulin drip 6 diabetic peripheral neuropathy, restart the Neurontin 7 acute anemia requiring transfusion of 2 units of packed RBCs, most likely secondary to blood loss during Impala catheter removal. 8 acute kidney injury, suspect ATN, improving. 9 difficulty swallowing, failed swallow evaluation, and following the recommendation of speech therapy on the case. Regarding feeding 10 chest wall pain, continue [place] orally. As needed. Recommendation: Continue present supportive care measures, continue present meds, continue to monitor daily electrolytes and renal profile, CBC, continue GI and DVT prophylaxis, continue physical therapy, continue dual anti-platelet therapy, Placed back on Lasix at 20 mg IV push every 12 hours. Patient is not quite ready to be moved out of the ICU, family updated on her condition, we'll continue to follow. Prognosis remains guarded. Time with Patient: Less than 30
[2018-10-11] MEDS: DEXTROSE 5%-0.45% NACL 1,000 ML IV SCH (14:18)
[2018-10-11] MEDS: SODIUM CHLORIDE 0.9% 1,000 ML IV SCH (17:24)
[2018-10-11] MEDS ORDERED: INSULIN REGULAR BOLUS (FROM DRIP BAG) IV PRN (17:30)
[2018-10-11 17:39] LABS: Glucose,Whole Blood 298 mg/dL (75-99)
[2018-10-11] MEDS ORDERED: INSULIN REGULAR 100 UNIT in SODIUM CHLORIDE 0.9% 100 ML IV SCH (18:00)
[2018-10-11 19:05] LABS: Glucose,Whole Blood 311 mg/dL (75-99)
[2018-10-11 20:09] LABS: Glucose,Whole Blood 255 mg/dL (75-99)
[2018-10-11] MEDS ORDERED: INSULIN DETEMIR (LEVEMIR) 100 UNIT/ML SYR SQ SCH (21:00)
[2018-10-11 21:04] LABS: Glucose,Whole Blood 165 mg/dL (75-99)
--- NOTE | 2018-10-11 22:05 | PN ---
PROGRESS NOTE DATE OF SERVICE: 10/11/2018 PRESENTING COMPLAINT: Tired. INTERVAL HISTORY: Patient is status post cardiac arrest following LAD angioplasty. Also had a PE episode. The episode lasted for an hour in the chemical laboratory tester. This morning I spoke to the dietitian to have the speech therapist come by and re-evaluate the patient, as patient is more awake and responsive. Speech therapist did come back and patient's diet was expanded to nectar-thick liquids and also chopped food was allowed. The patient is far more awake. TPN and lipids are therefore not initiated. The patient is more awake, propped up, communicating. REVIEW OF SYSTEMS: Done for constitutional, cardiovascular, GI, pulmonary; relevant findings as above. CURRENT MEDICATIONS: Reviewed. They include: 1. DuoNeb. 2. Xanax. 3. Aspirin. 4. IV Decadron. 5. IV Lasix 20 q.12. 6. Insulin drip. 7. Protonix. 8. Effient. 9. Vancomycin. PHYSICAL EXAMINATION: Temperature 97.9, pulse 90, respiration 20, blood pressure 145/78, pulse ox 98% on 3 L. GENERAL APPEARANCE: Sitting up, awake. More communicative. EYES: Pupils equal. Conjunctivae normal. NECK: JVD unable to assess. Mass not palpable. RESPIRATORY: Effort increased. LUNGS: Decreased breath sounds. CARDIOVASCULAR: First and second sounds normal. No edema. ABDOMEN: Soft, non-tender. Liver and spleen not palpable. PSYCHIATRY: Awake. Answering questions. NEUROLOGICAL: Moving all 4 limbs. Actually patient is using a Smart phone. INVESTIGATIONS: White count 8.1, hemoglobin 7.2, potassium 3.5, BUN 33, creatinine 0.95. Accu-Cheks are noted. ProBNP 16,400. Chest x-ray film, personally reviewed by me, shows cardiomegaly. It is a portable film. Questionable pulmonary edema. ASSESSMENT: 1. Cardiac arrest during cardiac catheterization during stenting of LAD. 2. Coronary artery disease with stent to the LAD. 3. Acute hypoxic respiratory failure, status post ventilator, now on nasal cannula. 4. Chronic obstructive pulmonary disease in an ex-smoker. 5. Diabetes mellitus, type 2, uncontrolled with hyperglycemia. 6. Essential hypertension. 7. Hyperlipidemia. 8. Diabetic peripheral neuropathy. 9. Left vocal cord paralysis, probably from intubation. 10.Acute tubular necrosis, probably from hypotension; that is acute renal failure. 11.Dysphagia with aspiration with thin liquids, clinically improved. 12.Acute blood loss anemia, expected from surgery. PLAN: Patient's diet has been advanced as per speech therapist. Overall feeling better. Will start the patient's Actos and metformin. Will also start the patient on . MMODL / IJN: [id number] /
--- NOTE | 2018-10-11 22:05 | PN ---
PROGRESS NOTE ADDENDUM TO PROGRESS NOTE: DATE OF SERVICE: 10/11/2018 ADDENDUM: Will cut back on the patient's Decadron to 2 mg 3 times a day. Will discontinue the insulin drip. Start the patient on Levemir 30 units subcutaneously starting tonight. Also will start the patient on home dose of pioglitazone, metformin 1 tablet twice a day. Total time spent today was about 40 minutes, with over 25 minutes of discussion. VICKIL / CARMENN: [id number] /
[2018-10-11 22:12] LABS: Glucose,Whole Blood 145 mg/dL (75-99)
[2018-10-11] MEDS: INSULIN DETEMIR (LEVEMIR) 100 UNIT/ML SYR SQ SCH (22:12)
[2018-10-11] MEDS: DEXAMETHASONE 4 MG TAB PO SCH (22:13)
[2018-10-11] MEDS: metFORMIN 850 MG TAB PO SCH (22:14)
[2018-10-11] MEDS: PIOGLITAZONE 15 MG TAB PO SCH (22:14)
[2018-10-12 04:44] LABS: Anisocytosis Slight; Basophils % (A) 0 %; Eosinophils % (A) 0 %; HGB 7.7 gm/dL (11.4-16.0); Hypochromasia Slight; Lymphocytes # (A) 0.8 k/uL (1.0-4.8); Lymphocytes % (A) 8 %; MCH 27.9 pg (25.0-35.0); MCHC 30.9 g/dL (31.0-37.0); MCV 90.2 fL (80.0-100.0); Mean Platelet Volume 7.8; Monocytes # (A) 0.4 k/uL (0-1.0); Monocytes % (A) 4 %; Neutrophils # (A) 8.6 k/uL (1.3-7.7); Neutrophils % (A) 87 %; Platelet Count 435 k/uL (150-450); Poikilocytosis Slight; RBC 2.77 m/uL (3.80-5.40); RDW 16.3 % (11.5-15.5); WBC 9.9 k/uL (3.8-10.6)
[2018-10-12 04:52] LABS: Calcium 9.3 mg/dL (8.4-10.2); Magnesium 1.7 mg/dL (1.6-2.3); Phosphorus 3.5 mg/dL (2.5-4.5); Potassium 3.7 mmol/L (3.5-5.1)
[2018-10-12] MEDS: MAGNESIUM SULFATE-D5W PMX 1 GM in DEXTROSE/WATER 1 100ML.BAG IVPB SCH ×2 (05:17→06:22)
--- NOTE | 2018-10-12 06:17 | XR ---
EXAMINATION TYPE: XR chest 1V portable DATE OF EXAM: 10/12/2018 HISTORY: evaluation of fluid status. REFERENCE: Previous study dated 10/11/2018. FINDINGS: The patient's left internal jugular catheter remains in place, unchanged in appearance. The heart is enlarged. There is vascular congestion and pulmonary edema. There is left basilar airspa ce disease. There are small, bilateral effusions. IMPRESSION: 1. CONTINUING CHANGES OF HEART FAILURE, UNCHANGED FROM PREVIOUS. 2. CONTINUING LEFT BASILAR AIRSPACE DISEASE WITH SMALL BILATERAL EFFUSIONS.
[2018-10-12] MEDS: METOPROLOL TARTRATE 25 MG TAB PO SCH (06:19)
[2018-10-12] MEDS ORDERED: POTASSIUM CHLORIDE ER 20 MEQ TAB.ER PO SCH (07:00)
[2018-10-12] MEDS: INSULIN ASPART (NovoLOG) 100 UNIT/ML VIAL SQ SCH ×4 (07:08→22:17)
[2018-10-12 07:18] LABS: Glucose,Whole Blood 130 mg/dL (75-99)
--- NOTE | 2018-10-12 07:33 | P.PN ---
Subjective Progress Note Date: 10/12/18 Principal diagnosis: Coronary artery disease/cardiogenic shock This is a 63-year-old female patient who was admitted to the hospital yesterday and underwent a heart catheterization on successful stenting of the mid LAD with the procedure was complicated by cardiogenic shock of unknown etiology. An Impella was placed and the patient was intubated and was admitted to the intens [facility] care unit. On follow-up with the patient today, 10/12/2018, the patient is doing better clinically. Hemodynamically she is slightly hypertensive. The kidney function is a slightly worse. The chest x-ray and he needs to show findings consistent with CHF and currently she is on Lasix IV and she has been diuresing very well. I am going to increase the dose of metoprolol to control the heart rate and blood pressure and also start the patient on Lipitor. Objective - Vital Signs Vital signs: Vital Signs Temp 98.1 F 10/12/18 04:00 Pulse 85 10/12/18 07:00 Resp 17 10/12/18 07:00 BP 156/117 10/12/18 07:00 Pulse Ox 96 10/12/18 07:00 Intake & Output 10/11/18 10/12/18 10/12/18 18:59 06:59 18:59 Intake Total 2115.097 7069.825 20 Output Total 910 740 60 Balance 428.013 332.825 -40 Weight 95.4 kg 97.3 kg Intake: IV 680 440 20 Dextrose 5%-0.45% NaCl 1, 600 000 ml @ 75 mls/hr IV . [id number] [facility] Rx#:[id number] Magnesium Sulfate-D5w Pmx 200 1 gm In Dextrose/Water 1 100ml.bag @ 100 mls/hr IVPB Q1H [facility] Rx#: [id number] Sodium Chloride 0.9% 1, 80 240 20 000 ml @ 20 mls/hr IV . Q24H [facility] Rx#:[id number] Intake, IV Titration 508.013 32.825 Amount Insulin Regular 100 unit 8.013 32.825 In Sodium Chloride 0.9% 100 ml @ Per Protocol IV .Q0M [facility]REG Rx#:[id number] Potassium Chloride 10 meq 200 In Water For Injection 1 100ml.bag @ 100 mls/hr IVPB Q1HR [facility] Rx#: [id number] Vancomycin 1,750 mg In 300 Sodium Chloride 0.9% 500 ml 500 ml @ 167 mls/hr IVPB Q24HR [facility] Rx#: [id number] Oral 150 600 Output: Urine 910 740 60 Other: Voiding Method Indwelling Catheter Indwelling Catheter ABP, PAP, CO, CI - Last Documented Arterial Blood Pressure 99/47 - Constitutional General appearance: Present: no acute distress - Respiratory Respiratory: bilateral: diminished - Cardiovascular Rhythm: regular Heart sounds: normal: S1, S2 - Labs CBC & Chem 7: 10/12/18 04:35 10/12/18 04:35 Labs: Abnormal Lab Results - Last 24 Hours (Table) 10/11/18 10/11/18 10/11/18 Range/Units 07:27 11:46 17:19 RBC (3.80-5.40) m/uL Hgb (11.4-16.0) gm/dL Hct (34.0-46.0) % MCHC (31.0-37.0) g/dL RDW (11.5-15.5) % Neutrophils # (1.3-7.7) k/uL Lymphocytes # (1.0-4.8) k/uL Carbon Dioxide (22-30) mmol/L BUN (7-17) mg/dL Creatinine (0.52-1.04) mg/dL Glucose (74-99) mg/dL POC Glucose (mg/dL) 257 H 222 H 298 H (75-99) mg/dL 10/11/18 10/11/18 10/11/18 Range/Units 18:53 19:58 20:53 RBC (3.80-5.40) m/uL Hgb (11.4-16.0) gm/dL Hct (34.0-46.0) % MCHC (31.0-37.0) g/dL RDW (11.5-15.5) % Neutrophils # (1.3-7.7) k/uL Lymphocytes # (1.0-4.8) k/uL Carbon Dioxide (22-30) mmol/L BUN (7-17) mg/dL Creatinine (0.52-1.04) mg/dL Glucose (74-99) mg/dL POC Glucose (mg/dL) 311 H 255 H 165 H (75-99) mg/dL 10/11/18 10/12/18 10/12/18 Range/Units 22:01 04:35 04:35 RBC 2.77 L (3.80-5.40) m/uL Hgb 7.7 L (11.4-16.0) gm/dL Hct 25.0 L (34.0-46.0) % MCHC 30.9 L (31.0-37.0) g/dL RDW 16.3 H (11.5-15.5) % Neutrophils # 8.6 H (1.3-7.7) k/uL Lymphocytes # 0.8 L (1.0-4.8) k/uL Carbon Dioxide 36 H (22-30) mmol/L BUN 35 H (7-17) mg/dL Creatinine 1.08 H (0.52-1.04) mg/dL Glucose 105 H (74-99) mg/dL POC Glucose (mg/dL) 145 H (75-99) mg/dL 10/12/18 Range/Units 07:06 RBC (3.80-5.40) m/uL Hgb (11.4-16.0) gm/dL Hct (34.0-46.0) % MCHC (31.0-37.0) g/dL RDW (11.5-15.5) % Neutrophils # (1.3-7.7) k/uL Lymphocytes # (1.0-4.8) k/uL Carbon Dioxide (22-30) mmol/L BUN (7-17) mg/dL Creatinine (0.52-1.04) mg/dL Glucose (74-99) mg/dL POC Glucose (mg/dL) 130 H (75-99) mg/dL Assessment and Plan Assessment: Assessment #1 coronary artery disease and status post PCI of the LAD #2 cardiogenic shock requiring mechanical support #3 acute respiratory failure #4 acute renal failure #5 anemia Plan #1 continue the current medical regimen #2 increase the dose of metoprolol #3 continue Lasix IV #4 continue monitor the kidney function and electrolytes #5 add Lipitor to the current medical regimen #6 follow-up with the patient
[2018-10-12] MEDS: IPRATROPIUM-ALBUTEROL 3 ML NEB INHALATION SCH ×4 (07:49→20:03)
[2018-10-12] MEDS: DEXAMETHASONE 4 MG TAB PO SCH ×3 (09:36→22:20)
[2018-10-12] MEDS: FUROSEMIDE 10 MG/ML 2 ML VIAL IV SCH ×2 (09:36→22:17)
[2018-10-12] MEDS: ASPIRIN 81 MG PO SCH (09:36)
[2018-10-12] MEDS: GABAPENTIN 400 MG CAP PO SCH ×2 (09:37→12:18)
[2018-10-12] MEDS: metFORMIN 850 MG TAB PO SCH ×2 (09:37→22:20)
[2018-10-12] MEDS: METOPROLOL TARTRATE 50 MG TAB PO SCH ×2 (09:37→22:18)
[2018-10-12] MEDS: LISINOPRIL 5 MG TAB PO SCH (09:37)
[2018-10-12] MEDS: PIOGLITAZONE 15 MG TAB PO SCH ×2 (09:38→22:20)
[2018-10-12] MEDS: PANTOPRAZOLE 40 MG/10 ML VIAL IVP SCH (09:38)
[2018-10-12] MEDS: SPIRONOLACTONE 25 MG TAB PO SCH (09:39)
[2018-10-12] MEDS: VANCOMYCIN 1,750 MG in SODIUM CHLORIDE 0.9% 500 ML 500 ML IVPB SCH (09:49)
[2018-10-12] MEDS: PRASUGREL 10 MG TAB PO SCH (10:34)
--- NOTE | 2018-10-12 10:59 | P.PN ---
Subjective Progress Note Date: 10/12/18 Principal diagnosis: Acute hypoxic respiratory failure secondary to cardiac arrest A 63-year-old female patient with known history of coronary artery disease, hypertension and diabetes mellitus and hyperlipidemia and peripheral neuropathy. She is an ex-smoker. The patient came in for elective cardiac catheterization during which the patient was found to have a mid LAD lesion. During the procedure, the patient went into cardiac arrest. As the angioplasty was being performed, the patient developed profound hypotension and went into a PEA. Note that the patient continued to have on and off hypotension and cardiac arrest for approximately 60 minutes in the [facility] [place]. During the process, the LAD stent was the fluid, resuscitation was done during which the patient received CPR and defibrillation. Pressors were initiated. Patient was intubated. Please refer to the cardiology note regarding the details of the cardiac arrest and resuscitation procedure. Note that in and pallor was also inserted to augment her cardiac output and hemodynamics. I saw the patient immediately after she arrived to the intensive care unit. She was withdrawing to painful stimulation. I had to put that on propofol for sedation and currently propofol is running. 40 g per KG per minute. The patient was intubated on a mechanical ventilator. I noted the blood gases and the patient had a component of respiratory metabolic acidosis. I made the appropriate vent changes and the patient is currently on a VC plus mode with a tidal volume of 450, respiratory rate of 26, FiO2 of 100% with a PEEP of 7. The most recent blood gas showed a pH of 7.29 with a pCO2 of 30 and pO2 of 21 and this was on the fentanyl 100%. FiO2 will be gradually weaned off. Chest x-ray was done and ET tube was in the proximal right mainstem. The tube was withdrawn by around 2 cm. Chest x-ray was consistent with pulmonary edema and the patient was having some frothy rest or secretions in the orotracheal tube. I was informed by cardiology that the patient did not have any coronary dissection or perforation. There was no evidence of a tamponade. No valvular disruption. Impala was in place in the right femoral artery. The patient also had a sheath in the right femoral vein. She has adequate pulses in all 4 extremities. The patient was maintained on a combination of factors including 3 g of norepinephrine infusion and 10 g of levo fed infusion. Urine output has been no other of 30 mL an hour. The patient has been afebrile. She is on dual platelet agents including aspirin and Effient. IV heparin will be also initiated. On 10/03/2018, follow-up. The patient is still intubated on a mechanical ventilator. The patient remains on Impala for hemodynamic support. Clinically she is well sedated and she is calm and comfortable on 50 g of propofol. The patient is intubated on a mechanical ventilator and FiO2 has been drop down to 50% and PEEP is still at 7. I reviewed today's blood gas and the patient is adequate oxygenation with a pO2 of 184. The pH is at 7.47 with a pCO2 of 31. Based on this, drop the FiO2 down to 40% and drop the PEEP down to 5. Chest x- ray shows adequate expansion of both lungs. ET tube is in a good location. The patient has a triple lumen catheter in the left IJ and later on during the day there was some oozing at the catheter insertion site probably related to the use of IV heparin. Hemoglobin dropped down to 8.6 and was still monitoring the hemoglobin. Appropriate dressing has been applied to the left IJ puncture site. The patient is on a combination of pressors and the patient is currently on examination of norepinephrine infusion and epinephrine the dose being titrated to maintain a mean artery pressure above 65. Creatinine is up to 1.4. The patient is producing around 30-40 mL an hour of urine output. She is afebrile. Impala catheter is still in place and the patient is receiving adequate hemodynamic support. CVP earlier was 5 and the patient was given a bolus of 500 mL and the patient is also receiving maintenance fluids of 75 mL an hour. The patient remains on a combination of aspirin, Effient and the patient is also on IV heparin. No fever. No seizure activity. The patient is still sensing painful stimulation she withdraws to painful stimulation all 4 extremities. Pupils are 4 mm in size and reactive to light. The white cell count is up to 22. On 10/04/2018 I'm seeing this patient for a follow-up. The patient is well sedated and patient's, comfortable likely distress. The patient is still on a mechanical ventilator with a vent setting being an FiO2 of 40% with a PEEP of 5 and a tidal volume of 450. The chest x-ray today shows no acute abnormalities. The patient has an ET tube in place. No significant edema pneumonia or effusions. The blood gas showed a pH of 7.39 with a pCO2 of 38 and pO2 of 117. This was done and FiO2 of 40%. CVP is around 8. The patient is on norepinephrine infusion at 0.15 g per KG per minute. Epinephrine drip was discontinued. The plan is to remove the Impala today as the patient is improved hemodynamically. Noted the patient was having some oozing of blood from the puncture site including left IJ and the puncture site in the right femoral area where the femoral sheath and the Impala catheter was inserted. Amount of bleeding is minimal. The patient received 2 units of packed RBC yesterday. Hemoglobin today is at 7.6. Patient will grade temperature spike yesterday and for that reason cultures were sent and the patient was given a dose of vancomycin. White cell count is at 16.3. Otherwise, he is receiving tube feeds at the rate of 25 mL an hour of vital high protein. IV heparin has been discontinued. She remains on a combination of aspirin and Effient. She is on insulin drip for blood sugar control. No other significant events overnight. Atelectatic discussion with cardiology. The plan is to remove the Impala today. Coagulation profile is within normal limits. Platelet count remains at 143. On 10/05/2018 the patient is sedated, comfortable on a mechanical ventilator. Hemodynamically the patient is doing well off Impala. Epinephrine drip. Norepinephrine infusion is running at a low rate and this can be gradually weaned off and discontinued hopefully today. IV fluids are running at the rate of 100 mL an hour of normal saline. The patient has adequate urine output. CVP is at 11. Hemoglobin from this morning was at 5.4 and this is expected to be related to the blood loss that occurred at the time of removal of the Impala as I was told that there was some bleeding encountered while doing this intervention. In any rate, there is no hematoma in the thigh. No active bleeding from the puncture sites whether it's in the right groin or in the left IJ area. The patient will be receiving a total of 2 units of packed RBC. No fever. No chills. Cultures of been negative. Cardiac rhythm is still sinus. He remains on a mechanical ventilator. Vent settings are essentially the same and the patient remains on assist control mode of ventilation with a tidal volume of 450, FiO2 of 40% with a PEEP of 5 and the rate of extreme. Chest x- ray shows no acute abnormalities. The patient is tolerating her tube feeds. The plan is to get the patient packed RBC transfusion and following that the patient will be receiving a spontaneous breathing trial to assess her candidacy for further weaning off the mechanical ventilator. On 10/06/2018, seeing this patient for a follow-up. The patient doing extremely well. She is on no pressors for now. Earlier this morning she was given a dose of Lasix 20 mg IV push and she is producing excellent urine output. She is taken off sedation the patient is gradually waking up and following commands. She is moving all 4 extremities. I am in the process of taking this patient off sedation and if she is fully awake, weaning parameters will be checked and the patient will be considered for extubation today. Note that she is hemodynamically stable. No signs of bleeding. Hemoglobin is stable. No fever. No chills. Her hemoglobin stable at 7.0. Cardiac rhythm is normal sinus mechanism. She seems to be recovering from a cardiogenic shock and the Impala a nd the presence of been all discontinued. The sputum sample is positive for Haemophilus influenza. She is on a combination of aspirin and Effient. Chest x-ray showing some small effusion the lung bases and atelectasis. Otherwise the chest x-ray is within normal limits. IV heparin has been discontinued. On 10/07/2018, patient remains in the ICU, she was extubated yesterday, not requiring any pressors, remains on diuretics, she has fairly good urine output. Family is at bedside, and they were all updated on her condition. Patient is awake, following simple instructions, seems to be generally weak, and has a weak cough. CBC is relatively normal however hemoglobin is 7.8, electrolytes are normal BUN is 40 creatinine 1.27. Chest x-ray continues to show bilateral patchy interstitial opacities reflecting some component of pulmonary edema . Small effusions also noted. Patient is hemodynamically stable, follow-up echocardiogram is pending to document if there is any improvement in LV function Reevaluated today on 10/08/2018, patient continues to tolerate the extubation. Not requiring any pressors, she has some difficulty swallowing, and we are addressing that with speech therapy, may need a modified barium swallow. Patient has a very weak cough, she remained generally weak. Continues to diurese well with Lasix, her renal functioning seems to be stable. Her chest x- ray is showing definite improvement. BUN is 35 creatinine is 1.17. Chest x-ray is suggestive of CHF and bibasilar atelectasis. Reevaluated today on 10/09/2018, patient remains in the ICU, hemodynamically stab le, in no form of respiratory distress, being followed by cardiology regarding her initial cardiac event. Patient remains hemodynamically stable, hemoglobin is stable, electrolytes are normal, patient is having chest pain, musculoskeletal from CPR. BUN is 32 creatinine 1.08, I have discontinued her IV Dilaudid, and recommended oral [place]. Seems to be generally weak, will definitely need a significant effort by physical therapy to optimize her physical status. No chest x-ray was done today. She failed the swallow evaluation, and now she is receiving nectar thick liquids. Patient was reevaluated today on 10/10/2018, she seems to be more short of breath today than she has been over the last few days. Patient seems to have difficulty with cough, her voice remains hoarse, her cough is extremely weak, and now she seems to have more wheezing and she had over the last few days. Clinically the patient seems to be dehydrated, hence I recommended cutting down the diuretics, and we'll cautiously hydrate the patient with D5 4 5 at 75 mL per hour. Patient remains in sinus rhythm, she is tachycardic, and hypertensive, metoprolol and lisinopril were increased. Remains on dual antiplatelet therapy. Her chest x-ray continues to show improvement, no clear-cut evidence of pulmonary edema on the chest x-ray today. Hence I felt that the patient would benefit from hydration, she would likely benefit from resting on BiPAP, seems to be working much harder today to breathe. And she was placed yesterday on Decadron. Which will be continued may cut down on the dose in the next 24 hours this is based on the recommendation of the ENT who saw the patient yesterday. CBC is relatively normal hemoglobin is 8.2 sodium is 147 BUN is 31 creatinine 0.97. Patient was reevaluated today on 10/11/2018, remains in the ICU, she has been intermittently on BiPAP. She was cautiously hydrated yesterday, seems to be doing much better today, less short of breath, her voice seems to be even getting better. Patient remained generally weak, continues to have some issues with swallowing, and she was placed on enteral feeding Her chest x-ray did show some slight interstitial edema, hence I recommended Lasix to be restarted at 20 mg IV push every 12 hours. Labs were reviewed sodium is 145 BUN is 33 creatinine 0.95 and hemoglobin is 7.2. Reevaluated today on 10/12/2018, patient is much better today compared to the last few days. She is sitting in a chair next to her bed, her voice is completely back to normal. Patient is on nasal cannula, off BiPAP, feeling much better and breathing a lot easier. Chest x-ray continues to show mild congestive changes, and left basilar atelectasis, possible effusion, no need to perform thoracentesis at this point, we'll continue with diuretics. Clinically however the patient has made a significant improvement. Labs were reviewed hemoglobin is 7.7 electrolytes are normal BUN is 35 creatinine is 1.08. Bicarb is 36. Objective - Vital Signs Vital signs: Vital Signs Temp 97.5 F L 10/12/18 08:00 Pulse 87 10/12/18 10:00 Resp 14 10/12/18 10:00 BP 127/63 10/12/18 10:00 Pulse Ox 97 10/12/18 10:00 Intake & Output 10/11/18 10/12/18 10/12/18 18:59 06:59 18:59 Intake Total 1103.476 9177.825 580 Output Total 910 740 210 Balance 428.013 332.825 370 Weight 95.4 kg 97.3 kg Intake: IV 680 440 580 Dextrose 5%-0.45% NaCl 1, 600 000 ml @ 75 mls/hr IV . [id number] [facility] Rx#:[id number] Magnesium Sulfate-D5w Pmx 200 1 gm In Dextrose/Water 1 100ml.bag @ 100 mls/hr IVPB Q1H [facility] Rx#: [id number] Sodium Chloride 0.9% 1, 80 240 80 000 ml @ 20 mls/hr IV . Q24H [facility] Rx#:[id number] Vancomycin 1,750 mg In 500 Sodium Chloride 0.9% 500 ml 500 ml @ 167 mls/hr IVPB Q24HR [facility] Rx#: [id number] Intake, IV Titration 508.013 32.825 Amount Insulin Regular 100 unit 8.013 32.825 In Sodium Chloride 0.9% 100 ml @ Per Protocol IV .Q0M [facility] Rx#:[id number] Potassium Chloride 10 meq 200 In Water For Injection 1 100ml.bag @ 100 mls/hr IVPB Q1HR [facility] Rx#: [id number] Vancomycin 1,750 mg In 300 Sodium Chloride 0.9% 500 ml 500 ml @ 167 mls/hr IVPB Q24HR [facility] Rx#: [id number] Oral 150 600 Output: Urine 910 740 210 Other: Voiding Method Indwelling Catheter Indwelling Catheter Indwelling Catheter ABP, PAP, CO, CI - Last Documented Arterial Blood Pressure 99/47 - Exam Physical Exam: Revealed a 63-year-old female, obese, extremely pleasant, on few liters nasal cannula, sitting at a bedside chair. Head: Atraumatic, normocephalic. HEENT:[Neck is supple.] [No neck masses.] [No thyromegaly.] [No JVD.] PERRLA, EOMI, no icterus. Left IJ triple-lumen catheter is noted. Moist mucous membranes, no thrush noted. Chest: Diminished breath sounds at the bases especially at the left base, no rhonchi and no wheezes. Symmetrical chest expansion is noted, no chest wall tenderness.] Cardiac Exam: [Normal S1 and S2, no S3 gallop, no murmur.] Abdomen: [Obese, Soft, nontender, no megaly, no rebound, no guarding, normal bowel sounds.] Extremities: [No clubbing, trace of bipedal in upper and lower extremities, no cyanosis.] Neurological Exam: Alert and oriented 3, no gross focal neurologic deficit. Psychiatric: Normal mood affect and mental status examination. Skin: No rashes. Lymphatics: No lymphadenopathy - Labs CBC & Chem 7: 10/12/18 04:35 10/12/18 04:35 Labs: Abnormal Lab Results - Last 24 Hours (Table) 10/11/18 10/11/18 10/11/18 Range/Units 11:46 17:19 18:53 RBC (3.80-5.40) m/uL Hgb (11.4-16.0) gm/dL Hct (34.0-46.0) % MCHC (31.0-37.0) g/dL RDW (11.5-15.5) % Neutrophils # (1.3-7.7) k/uL Lymphocytes # (1.0-4.8) k/uL Carbon Dioxide (22-30) mmol/L BUN (7-17) mg/dL Creatinine (0.52-1.04) mg/dL Glucose (74-99) mg/dL POC Glucose (mg/dL) 222 H 298 H 311 H (75-99) mg/dL 10/11/18 10/11/18 10/11/18 Range/Units 19:58 20:53 22:01 RBC (3.80-5.40) m/uL Hgb (11.4-16.0) gm/dL Hct (34.0-46.0) % MCHC (31.0-37.0) g/dL RDW (11.5-15.5) % Neutrophils # (1.3-7.7) k/uL Lymphocytes # (1.0-4.8) k/uL Carbon Dioxide (22-30) mmol/L BUN (7-17) mg/dL Creatinine (0.52-1.04) mg/dL Glucose (74-99) mg/dL POC Glucose (mg/dL) 255 H 165 H 145 H (75-99) mg/dL 10/12/18 10/12/18 10/12/18 Range/Units 04:35 04:35 07:06 RBC 2.77 L (3.80-5.40) m/uL Hgb 7.7 L (11.4-16.0) gm/dL Hct 25.0 L (34.0-46.0) % MCHC 30.9 L (31.0-37.0) g/dL RDW 16.3 H (11.5-15.5) % Neutrophils # 8.6 H (1.3-7.7) k/uL Lymphocytes # 0.8 L (1.0-4.8) k/uL Carbon Dioxide 36 H (22-30) mmol/L BUN 35 H (7-17) mg/dL Creatinine 1.08 H (0.52-1.04) mg/dL Glucose 105 H (74-99) mg/dL POC Glucose (mg/dL) 130 H (75-99) mg/dL Assessment and Plan Assessment: Impression: 1 acute cardiac arrest during cardiac catheterization and stenting of LAD with prolonged course of CPR 2 acute hypoxic respiratory failure secondary to above, resolved. 3 coronary artery disease and status post stenting of LAD for mid LAD lesion 4 suspect LV dysfunction and cardiogenic pulmonary edema requiring intubation and mechanical ventilation 5 type 2 diabetes, well controlled. 6 diabetic peripheral neuropathy, restart the Neurontin, dose is being adjusted accordingly. 7 acute anemia requiring transfusion of 2 units of packed RBCs, most likely secondary to blood loss during Impala catheter removal. 8 acute kidney injury, suspect ATN, improving. 9 difficulty swallowing, failed swallow evaluation, and following the recommendation of speech therapy on the case. Regarding feeding 10 chest wall pain, continue [place] orally. As needed. Recommendation: Over the last 24 hours, the patient has made a significant improvement, not requiring BiPAP, not as weak as she was over the last few days, her voice is coming back to normal, hence we will: Continue present supportive care measures, continue present meds, continue to monitor daily electrolytes and renal profile, CBC, continue GI and DVT prophylaxis, continue physical therapy, continue dual anti-platelet therapy, Continue Lasix at 20 mg IV push every 12 hours. We will keep the patient in the ICU for next 24 hours, we'll arrange for transfer out of the ICU and the lumen catheter to be removed in the next 24 hours. Time with Patient: Less than 30
[2018-10-12 12:15] LABS: Glucose,Whole Blood 242 mg/dL (75-99)
[2018-10-12] MEDS: SODIUM CHLORIDE 0.9% 1,000 ML IV SCH (15:59)
--- NOTE | 2018-10-12 16:58 | PN ---
PROGRESS NOTE DATE OF SERVICE: 10/12/2018 This 63-year-old woman who was admitted with CAD, had multiple cardiac . Patient also had angioplasty and stenting of the LAD. The patient is closely monitored at this time in the ICU. The most recent chest x-ray done today which was reviewed personally by me showed continued CHF and left basilar atelectasis also. A 2-D echo done a week ago showed ejection fraction about 30% to 35%. PAST MEDICAL HISTORY: Reviewed. REVIEW OF SYSTEMS: CARDIOVASCULAR SYSTEM: No angina. RESPIRATORY SYSTEM: Occasional cough. GI: As mentioned earlier. : No dysuria. NERVOUS SYSTEM: No numbness or weakness. CURRENT MEDICATIONS: Current medications are reviewed and include: 1. Haugan 5 mg q.4 p.r.n. 2. Maalox. 3. DuoNeb q.i.d. and p.r.n. 4. Xanax 0.25 q.6. 5. Aspirin 81 mg. 6. Lipitor. 7. Atropine. 8. Hexadrol. 9. Lasix 20 IV b.i.d. 10.Neurontin. 11.Apresoline p.r.n. 12.Levemir 26 subcutaneous q.h.s. 13.Zestril. 14.Lopressor. 15.Nitrostat. 16.Protonix. 17.Actos 15 mg b.i.d. 18.Effient 10 mg daily. 19.Aldactone 25 mg p.o. daily. 20.Ambien 5 mg q.h.s. p.r.n. PHYSICAL EXAMINATION: Patient is alert and oriented x3. Pulse 80, blood pressure 133/93, respiration 14, temperature 97.5, pulse ox 96% on room air. HEENT: Conjunctivae normal. Oral mucosa moist. NECK: No jugular venous distention. No carotid bruit. No lymph node enlargement. CARDIOVASCULAR: S1, S2 muffled. RESPIRATION: Breath sounds diminished at the bases. Bilateral scattered rhonchi and crackles. ABDOMEN: Soft, nontender. No mass palpable. LEGS: No edema, no swelling. NERVOUS SYSTEM: Higher function as mentioned earlier. Moves all 4 limbs. No focal motor deficits. LYMPHATICS: No lymphadenopathy of the neck, axillae or groin. SKIN: No ulcer, rash or bleeding. JOINTS: No active deforming arthropathy. LABS: WBC 9.9, hemoglobin 7.7, creatinine is 1.08. ASSESSMENT: 1. Coronary artery disease, status post cardiac stenting of the LAD. 2. Multiple cardiac arrests. 3. Acute hypoxic respiratory failure status post mechanical ventilation secondary to coronary artery disease. 4. Chronic obstructive pulmonary disease. 5. Congestive heart failure acute exacerbation with acute on chronic systolic dysfunction, ejection fraction 35% to 40%. 6. Diabetes mellitus type 2, uncontrolled with hyperglycemia. 7. Hypertension. 8. Hyperlipidemia. 9. Diabetic peripheral neuropathy. 10.Left vocal cord paralysis history from intubation. 11.Acute tubular necrosis, acute renal failure . 12.Dysphagia with aspiration with liquids clinically improved. 13.Acute blood loss anemia, expected from surgery. RECOMMENDATIONS AND DISCUSSION: In this 63-year-old woman who presented with multiple complex issues, will monitor the patient closely. Continue the current medications, continue symptomatic treatment. Continue with a small dose of Lasix. Continue with dual antiplatelet therapy. Monitor blood sugars closely. Increase ambulation. Guarded prognosis because of multiple complex medical issues. Further recommendations to follow. MMF[facility] / CARMENN: [id number] / MTDD
[2018-10-12] MEDS: GABAPENTIN 100 MG CAP PO SCH ×2 (17:09→22:18)
[2018-10-12 17:10] LABS: Glucose,Whole Blood 142 mg/dL (75-99)
[2018-10-12] MEDS: HYDROcodone/APAP 5-325MG 1 EACH TAB PO PRN ×2 (18:03→22:18)
[2018-10-12 21:35] LABS: Glucose,Whole Blood 284 mg/dL (75-99)
[2018-10-12] MEDS: INSULIN DETEMIR (LEVEMIR) 100 UNIT/ML SYR SQ SCH (22:17)
[2018-10-12] MEDS: AMITRIPTYLINE HCL 25 MG TAB PO SCH (22:18)
[2018-10-12] MEDS: ATORVASTATIN 80 MG TAB PO SCH (22:18)
[2018-10-12 22:24] LABS: Glucose,Whole Blood 330 mg/dL (75-99)
[2018-10-13 05:04] LABS: Anisocytosis Slight; Basophils % (A) 0 %; Eosinophils % (A) 0 %; HCT 22.8 % (34.0-46.0); HGB 7.3 gm/dL (11.4-16.0); Hypochromasia Moderate; Lymphocytes # (A) 0.4 k/uL (1.0-4.8); Lymphocytes % (A) 5 %; MCH 29.2 pg (25.0-35.0); MCHC 32.3 g/dL (31.0-37.0); MCV 90.6 fL (80.0-100.0); Mean Platelet Volume 7.6; Monocytes # (A) 0.2 k/uL (0-1.0); Monocytes % (A) 3 %; Neutrophils # (A) 7.1 k/uL (1.3-7.7); Neutrophils % (A) 91 %; Platelet Count 378 k/uL (150-450); Poikilocytosis Slight; RBC 2.51 m/uL (3.80-5.40); RDW 16.3 % (11.5-15.5); WBC 7.9 k/uL (3.8-10.6)
[2018-10-13 05:11] LABS: Calcium 8.9 mg/dL (8.4-10.2); Magnesium 1.7 mg/dL (1.6-2.3); Phosphorus 4.1 mg/dL (2.5-4.5); Potassium 4.2 mmol/L (3.5-5.1)
[2018-10-13] MEDS: MAGNESIUM SULFATE-D5W PMX 1 GM in DEXTROSE/WATER 1 100ML.BAG IVPB SCH ×2 (05:20→07:24)
[2018-10-13] MEDS: IPRATROPIUM-ALBUTEROL 3 ML NEB INHALATION SCH ×4 (06:53→20:01)
[2018-10-13] MEDS ORDERED: VANCOMYCIN TROUGH DUE 1 EACH MISC MISCELLANE ONE (07:00)
[2018-10-13] MEDS: INSULIN ASPART (NovoLOG) 100 UNIT/ML VIAL SQ SCH ×4 (07:24→21:52)
[2018-10-13 07:33] LABS: Glucose,Whole Blood 223 mg/dL (75-99)
[2018-10-13] MEDS: GABAPENTIN 100 MG CAP PO SCH ×4 (09:28→21:43)
[2018-10-13] MEDS: PANTOPRAZOLE SODIUM 40 MG GRANULE PKT PO SCH (09:28)
[2018-10-13] MEDS: METOPROLOL TARTRATE 50 MG TAB PO SCH ×2 (09:28→21:43)
[2018-10-13] MEDS: DEXAMETHASONE 4 MG TAB PO SCH ×3 (09:28→21:43)
[2018-10-13] MEDS: PIOGLITAZONE 15 MG TAB PO SCH ×2 (09:28→21:43)
[2018-10-13] MEDS: ASPIRIN 81 MG PO SCH (09:28)
[2018-10-13] MEDS: VANCOMYCIN 1,750 MG in SODIUM CHLORIDE 0.9% 500 ML 500 ML IVPB SCH (09:29)
[2018-10-13] MEDS: SPIRONOLACTONE 25 MG TAB PO SCH (09:29)
[2018-10-13] MEDS: LISINOPRIL 5 MG TAB PO SCH (09:29)
[2018-10-13] MEDS: FUROSEMIDE 10 MG/ML 2 ML VIAL IV SCH ×2 (09:29→21:44)
[2018-10-13] MEDS: metFORMIN 850 MG TAB PO SCH ×2 (09:30→21:44)
--- NOTE | 2018-10-13 09:49 | P.PN ---
Subjective Progress Note Date: 10/13/18 Principal diagnosis: Acute hypoxic respiratory failure secondary to cardiac arrest A 63-year-old female patient with known history of coronary artery disease, hypertension and diabetes mellitus and hyperlipidemia and peripheral neuropathy. She is an ex-smoker. The patient came in for elective cardiac catheterization during which the patient was found to have a mid LAD lesion. During the procedure, the patient went into cardiac arrest. As the angioplasty was being performed, the patient developed profound hypotension and went into a PEA. Note that the patient continued to have on and off hypotension and cardiac arrest for approximately 60 minutes in the [facility]. During the process, the LAD stent was the fluid, resuscitation was done during which the patient received CPR and defibrillation. Pressors were initiated. Patient was intubated. Please refer to the cardiology note regarding the details of the cardiac arrest and resuscitation procedure. Note that in and pallor was also inserted to augment her cardiac output and hemodynamics. I saw the patient immediately after she arrived to the intensive care unit. She was withdrawing to painful stimulation. I had to put that on propofol for sedation and currently propofol is running. 40 g per KG per minute. The patient was intubated on a mechanical ventilator. I noted the blood gases and the patient had a component of respiratory metabolic acidosis. I made the appropriate vent changes and the patient is currently on a VC plus mode with a tidal volume of 450, respiratory rate of 26, FiO2 of 100% with a PEEP of 7. The most recent blood gas showed a pH of 7.29 with a pCO2 of 30 and pO2 of 21 and this was on the fentanyl 100%. FiO2 will be gradually weaned off. Chest x-ray was done and ET tube was in the proximal right mainstem. The tube was withdrawn by around 2 cm. Chest x-ray was consistent with pulmonary edema and the patient was having some frothy rest or secretions in the orotracheal tube. I was informed by cardiology that the patient did not have any coronary dissection or perforation. There was no evidence of a tamponade. No valvular disruption. Impala was in place in the right femoral artery. The patient also had a sheath in the right femoral vein. She has adequate pulses in all 4 extremities. The patient was maintained on a combination of factors including 3 g of norepinephrine infusion and 10 g of levo fed infusion. Urine output has been no other of 30 mL an hour. The patient has been afebrile. She is on dual platelet agents including aspirin and Effient. IV heparin will be also initiated. On 10/03/2018, follow-up. The patient is still intubated on a mechanical ventilator. The patient remains on Impala for hemodynamic support. Clinically she is well sedated and she is calm and comfortable on 50 g of propofol. The patient is intubated on a mechanical ventilator and FiO2 has been drop down to 50% and PEEP is still at 7. I reviewed today's blood gas and the patient is adequate oxygenation with a pO2 of 184. The pH is at 7.47 with a pCO2 of 31. Based on this, drop the FiO2 down to 40% and drop the PEEP down to 5. Chest x- ray shows adequate expansion of both lungs. ET tube is in a good location. The patient has a triple lumen catheter in the left IJ and later on during the day there was some oozing at the catheter insertion site probably related to the use of IV heparin. Hemoglobin dropped down to 8.6 and was still monitoring the hemoglobin. Appropriate dressing has been applied to the left IJ puncture site. The patient is on a combination of pressors and the patient is currently on examination of norepinephrine infusion and epinephrine the dose being titrated to maintain a mean artery pressure above 65. Creatinine is up to 1.4. The patient is producing around 30-40 mL an hour of urine output. She is afebrile. Impala catheter is still in place and the patient is receiving adequate hemodynamic support. CVP earlier was 5 and the patient was given a bolus of 500 mL and the patient is also receiving maintenance fluids of 75 mL an hour. The patient remains on a combination of aspirin, Effient and the patient is also on IV heparin. No fever. No seizure activity. The patient is still sensing painful stimulation she withdraws to painful stimulation all 4 extremities. Pupils are 4 mm in size and reactive to light. The white cell count is up to 22. On 10/04/2018 I'm seeing this patient for a follow-up. The patient is well sedated and patient's, comfortable likely distress. The patient is still on a mechanical ventilator with a vent setting being an FiO2 of 40% with a PEEP of 5 and a tidal volume of 450. The chest x-ray today shows no acute abnormalities. The patient has an ET tube in place. No significant edema pneumonia or effusions. The blood gas showed a pH of 7.39 with a pCO2 of 38 and pO2 of 117. This was done and FiO2 of 40%. CVP is around 8. The patient is on norepinephrine infusion at 0.15 g per KG per minute. Epinephrine drip was discontinued. The plan is to remove the Impala today as the patient is improved hemodynamically. Noted the patient was having some oozing of blood from the puncture site including left IJ and the puncture site in the right femoral area where the femoral sheath and the Impala catheter was inserted. Amount of bleeding is minimal. The patient received 2 units of packed RBC yesterday. Hemoglobin today is at 7.6. Patient will grade temperature spike yesterday and for that reason cultures were sent and the patient was given a dose of vancomycin. White cell count is at 16.3. Otherwise, he is receiving tube feeds at the rate of 25 mL an hour of vital high protein. IV heparin has been discontinued. She remains on a combination of aspirin and Effient. She is on insulin drip for blood sugar control. No other significant events overnight. Atelectatic discussion with cardiology. The plan is to remove the Impala today. Coagulation profile is within normal limits. Platelet count remains at 143. On 10/05/2018 the patient is sedated, comfortable on a mechanical ventilator. Hemodynamically the patient is doing well off Impala. Epinephrine drip. Norepinephrine infusion is running at a low rate and this can be gradually weaned off and discontinued hopefully today. IV fluids are running at the rate of 100 mL an hour of normal saline. The patient has adequate urine output. CVP is at 11. Hemoglobin from this morning was at 5.4 and this is expected to be related to the blood loss that occurred at the time of removal of the Impala as I was told that there was some bleeding encountered while doing this intervention. In any rate, there is no hematoma in the thigh. No active bleeding from the puncture sites whether it's in the right groin or in the left IJ area. The patient will be receiving a total of 2 units of packed RBC. No fever. No chills. Cultures of been negative. Cardiac rhythm is still sinus. He remains on a mechanical ventilator. Vent settings are essentially the same and the patient remains on assist control mode of ventilation with a tidal volume of 450, FiO2 of 40% with a PEEP of 5 and the rate of extreme. Chest x- ray shows no acute abnormalities. The patient is tolerating her tube feeds. The plan is to get the patient packed RBC transfusion and following that the patient will be receiving a spontaneous breathing trial to assess her candidacy for further weaning off the mechanical ventilator. On 10/06/2018, seeing this patient for a follow-up. The patient doing extremely well. She is on no pressors for now. Earlier this morning she was given a dose of Lasix 20 mg IV push and she is producing excellent urine output. She is taken off sedation the patient is gradually waking up and following commands. She is moving all 4 extremities. I am in the process of taking this patient off sedation and if she is fully awake, weaning parameters will be checked and the patient will be considered for extubation today. Note that she is hemodynamically stable. No signs of bleeding. Hemoglobin is stable. No fever. No chills. Her hemoglobin stable at 7.0. Cardiac rhythm is normal sinus mechanism. She seems to be recovering from a cardiogenic shock and the Impala a nd the presence of been all discontinued. The sputum sample is positive for Haemophilus influenza. She is on a combination of aspirin and Effient. Chest x-ray showing some small effusion the lung bases and atelectasis. Otherwise the chest x-ray is within normal limits. IV heparin has been discontinued. On 10/07/2018, patient remains in the ICU, she was extubated yesterday, not requiring any pressors, remains on diuretics, she has fairly good urine output. Family is at bedside, and they were all updated on her condition. Patient is awake, following simple instructions, seems to be generally weak, and has a weak cough. CBC is relatively normal however hemoglobin is 7.8, electrolytes are normal BUN is 40 creatinine 1.27. Chest x-ray continues to show bilateral patchy interstitial opacities reflecting some component of pulmonary edema . Small effusions also noted. Patient is hemodynamically stable, follow-up echocardiogram is pending to document if there is any improvement in LV function Reevaluated today on 10/08/2018, patient continues to tolerate the extubation. Not requiring any pressors, she has some difficulty swallowing, and we are addressing that with speech therapy, may need a modified barium swallow. Patient has a very weak cough, she remained generally weak. Continues to diurese well with Lasix, her renal functioning seems to be stable. Her chest x- ray is showing definite improvement. BUN is 35 creatinine is 1.17. Chest x-ray is suggestive of CHF and bibasilar atelectasis. Reevaluated today on 10/09/2018, patient remains in the ICU, hemodynamically stab le, in no form of respiratory distress, being followed by cardiology regarding her initial cardiac event. Patient remains hemodynamically stable, hemoglobin is stable, electrolytes are normal, patient is having chest pain, musculoskeletal from CPR. BUN is 32 creatinine 1.08, I have discontinued her IV Dilaudid, and recommended oral Driscoll. Seems to be generally weak, will definitely need a significant effort by physical therapy to optimize her physical status. No chest x-ray was done today. She failed the swallow evaluation, and now she is receiving nectar thick liquids. Patient was reevaluated today on 10/10/2018, she seems to be more short of breath today than she has been over the last few days. Patient seems to have difficulty with cough, her voice remains hoarse, her cough is extremely weak, and now she seems to have more wheezing and she had over the last few days. Clinically the patient seems to be dehydrated, hence I recommended cutting down the diuretics, and we'll cautiously hydrate the patient with D5 4 5 at 75 mL per hour. Patient remains in sinus rhythm, she is tachycardic, and hypertensive, metoprolol and lisinopril were increased. Remains on dual antiplatelet therapy. Her chest x-ray continues to show improvement, no clear-cut evidence of pulmonary edema on the chest x-ray today. Hence I felt that the patient would benefit from hydration, she would likely benefit from resting on BiPAP, seems to be working much harder today to breathe. And she was placed yesterday on Decadron. Which will be continued may cut down on the dose in the next 24 hours this is based on the recommendation of the ENT who saw the patient yesterday. CBC is relatively normal hemoglobin is 8.2 sodium is 147 BUN is 31 creatinine 0.97. Patient was reevaluated today on 10/11/2018, remains in the ICU, she has been intermittently on BiPAP. She was cautiously hydrated yesterday, seems to be doing much better today, less short of breath, her voice seems to be even getting better. Patient remained generally weak, continues to have some issues with swallowing, and she was placed on enteral feeding Her chest x-ray did show some slight interstitial edema, hence I recommended Lasix to be restarted at 20 mg IV push every 12 hours. Labs were reviewed sodium is 145 BUN is 33 creatinine 0.95 and hemoglobin is 7.2. Reevaluated today on 10/12/2018, patient is much better today compared to the last few days. She is sitting in a chair next to her bed, her voice is completely back to normal. Patient is on nasal cannula, off BiPAP, feeling much better and breathing a lot easier. Chest x-ray continues to show mild congestive changes, and left basilar atelectasis, possible effusion, no need to perform thoracentesis at this point, we'll continue with diuretics. Clinically however the patient has made a significant improvement. Labs were reviewed hemoglobin is 7.7 electrolytes are normal BUN is 35 creatinine is 1.08. Bicarb is 36. Reevaluated today on 10/13/2018, patient continues to improve, feeling better, breathing a lot easier, hardly any cough no wheezing no shortness of breath. Chest x-ray continues to show mild interstitial edema, however clinically the p atient is feeling better. Labs showed WBC 7.9 hemoglobin of 7.3, left lites are normal BUN is 41 creatinine is 1.14. Remains on diuretics. Not requiring any pressors. Continues to have a triple lumen catheter in the left IJ area which would be removed today. I plan to give the patient out of the ICU to a monitor bed on selective today. Objective - Vital Signs Vital signs: Vital Signs Temp 97.8 F 10/13/18 04:00 Pulse 75 10/13/18 07:05 Resp 17 10/13/18 07:00 BP 119/62 10/13/18 07:00 Pulse Ox 99 10/13/18 07:00 Intake & Output 10/12/18 10/13/18 10/13/18 18:59 06:59 18:59 Intake Total 700 580 360 Output Total 870 990 75 Balance -170 -410 285 Weight 95.2 kg Intake: IV 700 340 120 Magnesium Sulfate-D5w Pmx 100 100 1 gm In Dextrose/Water 1 100ml.bag @ 100 mls/hr IVPB Q1H [facility] Rx#: [id number] Sodium Chloride 0.9% 1, 200 240 20 000 ml @ 20 mls/hr IV . Q24H [facility] Rx#:[id number] Vancomycin 1,750 mg In 500 Sodium Chloride 0.9% 500 ml 500 ml @ 167 mls/hr IVPB Q24HR [facility] Rx#: [id number] Oral 240 240 Tube Feeding 0 Output: Urine 870 990 75 Other: Voiding Method Indwelling Catheter Indwelling Catheter # Bowel Movements 1 ABP, PAP, CO, CI - Last Documented Arterial Blood Pressure 99/47 - Exam Physical Exam: Revealed a 63-year-old female, obese, extremely pleasant, in no distress, remains on 3 L O2. Head: Atraumatic, normocephalic. HEENT:[Neck is supple.] [No neck masses.] [No thyromegaly.] [No JVD.] PERRLA, EOMI, no icterus. Left IJ triple-lumen catheter is noted. Moist mucous membranes, no thrush noted. Chest: Minimal fine crackles at the right base, left side is clear, symmetrical chest expansion, no chest wall tenderness Cardiac Exam: [Normal S1 and S2, no S3 gallop, no murmur.] Abdomen: [Obese, Soft, nontender, no megaly, no rebound, no guarding, normal bowel sounds.] Extremities: [No clubbing, trace of bipedal in upper and lower extremities, no cyanosis.] Neurological Exam: Alert and oriented 3, no gross focal neurologic deficit. Psychiatric: Normal mood affect and mental status examination. Skin: No rashes. Lymphatics: No lymphadenopathy - Labs CBC & Chem 7: 10/13/18 04:50 10/13/18 04:50 Labs: Abnormal Lab Results - Last 24 Hours (Table) 10/12/18 10/12/18 10/12/18 Range/Units 12:03 16:56 21:24 RBC (3.80-5.40) m/uL Hgb (11.4-16.0) gm/dL Hct (34.0-46.0) % RDW (11.5-15.5) % Lymphocytes # (1.0-4.8) k/uL Carbon Dioxide (22-30) mmol/L BUN (7-17) mg/dL Creatinine (0.52-1.04) mg/dL Glucose (74-99) mg/dL POC Glucose (mg/dL) 242 H 142 H 284 H (75-99) mg/dL 10/12/18 10/13/18 10/13/18 Range/Units 22:12 04:50 04:50 RBC 2.51 L (3.80-5.40) m/uL Hgb 7.3 L (11.4-16.0) gm/dL Hct 22.8 L (34.0-46.0) % RDW 16.3 H (11.5-15.5) % Lymphocytes # 0.4 L (1.0-4.8) k/uL Carbon Dioxide 34 H (22-30) mmol/L BUN 41 H (7-17) mg/dL Creatinine 1.14 H (0.52-1.04) mg/dL Glucose 151 H (74-99) mg/dL POC Glucose (mg/dL) 330 H (75-99) mg/dL 10/13/18 Range/Units 07:21 RBC (3.80-5.40) m/uL Hgb (11.4-16.0) gm/dL Hct (34.0-46.0) % RDW (11.5-15.5) % Lymphocytes # (1.0-4.8) k/uL Carbon Dioxide (22-30) mmol/L BUN (7-17) mg/dL Creatinine (0.52-1.04) mg/dL Glucose (74-99) mg/dL POC Glucose (mg/dL) 223 H (75-99) mg/dL Assessment and Plan Assessment: Impression: 1 acute cardiac arrest during cardiac catheterization and stenting of LAD with prolonged course of CPR 2 acute hypoxic respiratory failure secondary to above, resolved. 3 coronary artery disease and status post stenting of LAD for mid LAD lesion 4 suspect LV dysfunction and cardiogenic pulmonary edema requiring intubation and mechanical ventilation 5 type 2 diabetes, well controlled. 6 diabetic peripheral neuropathy, restart the Neurontin, dose is being adjusted accordingly. 7 acute anemia requiring transfusion of 2 units of packed RBCs, most likely secondary to blood loss during Impala catheter removal. 8 acute kidney injury, suspect ATN, improving. 9 difficulty swallowing, failed swallow evaluation, and following the recommendation of speech therapy on the case. Regarding feeding 10 chest wall pain, continue Driscoll orally. As needed. Recommendation: Continues to improve, will transfer the patient out of the ICU to a monitor bed on selective. Continue present supportive care measures, continue present meds, continue to monitor daily electrolytes and renal profile, CBC, continue GI and DVT prophylaxis, continue physical therapy, continue dual anti-platelet therapy, Continue Lasix at 20 mg IV push every 12 hours. Discontinue left IJ central line. We'll transfer the patient to a monitor bed on selective. Her condition remains guarded, but we'll continue to follow closely. Time with Patient: Less than 30
[2018-10-13] MEDS: PRASUGREL 10 MG TAB PO SCH (09:55)
--- NOTE | 2018-10-13 11:53 | XR ---
EXAMINATION TYPE: XR chest 1V portable DATE OF EXAM: 10/13/2018 HISTORY: evaluation of fluid status post scheduled lasix. REFERENCE: Previous study dated 10/12/2018. FINDINGS: A left internal jugular catheter remains in place, unchanged in appearance. The heart is mildly enlarged. There is left basilar airspace disease. Vascular congestion has improve d slightly. Mild interstitial change persists. There are small, bilateral effusions. IMPRESSION: IMPROVING CHANGES OF CONGESTIVE HEART FAILURE.
[2018-10-13 11:57] LABS: Glucose,Whole Blood 197 mg/dL (75-99)
--- NOTE | 2018-10-13 12:36 | P.PN ---
Subjective Principal diagnosis: Coronary artery disease/cardiogenic shock This is a 63-year-old female patient who was admitted to the hospital yesterday and underwent a heart catheterization on successful stenting of the mid LAD with the procedure was complicated by cardiogenic shock of unknown etiology. An Impella was placed and the patient was intubated and was admitted to the intensive care unit. She has done quite well. On follow-up with the patient today, 10/13/2018, she is doing better clinically. Yesterday was the first time to get out of the bed and sit in the chair. Hemodynamically she is stable and the blood pressure is better after we increased the dose of metoprolol yesterday. Beside that she is on maximize medical treatment consistent of dual antiplatelet therapy, metoprolol, lisinopril, and Aldactone, and also she is on high intensity statin. The chest x-ray today revealed improvement in the CHF. She continues to be on Lasix IV. The creatinine continues to be stable. I would keep the patient on Lasix IV and continue follow-up with her. Objective - Vital Signs Vital signs: Vital Signs Temp 98.3 F 10/13/18 08:00 Pulse 78 10/13/18 11:22 Resp 15 10/13/18 10:00 BP 115/88 10/13/18 11:00 Pulse Ox 99 10/13/18 11:00 Intake & Output 10/12/18 10/13/18 10/13/18 18:59 06:59 18:59 Intake Total 700 580 440 Output Total 870 990 385 Balance -170 -410 55 Weight 95.2 kg Intake: IV 700 340 200 Magnesium Sulfate-D5w Pmx 100 100 1 gm In Dextrose/Water 1 100ml.bag @ 100 mls/hr IVPB Q1H GREG Rx#: [id number] Sodium Chloride 0.9% 1, 200 240 100 000 ml @ 20 mls/hr IV . Q24H GREG Rx#:[id number] Vancomycin 1,750 mg In 500 Sodium Chloride 0.9% 500 ml 500 ml @ 167 mls/hr IVPB Q24HR GREG Rx#: [id number] Oral 240 240 Tube Feeding 0 Output: Urine 870 990 385 Other: Voiding Method Indwelling Catheter Indwelling Catheter Indwelling Catheter # Bowel Movements 1 ABP, PAP, CO, CI - Last Documented Arterial Blood Pressure 99/47 - Constitutional General appearance: Present: no acute distress - Respiratory Respiratory: bilateral: diminished - Cardiovascular Rhythm: regular Heart sounds: normal: S1, S2 - Labs CBC & Chem 7: 10/13/18 04:50 10/13/18 04:50 Labs: Abnormal Lab Results - Last 24 Hours (Table) 10/12/18 10/12/18 10/12/18 Range/Units 16:56 21:24 22:12 RBC (3.80-5.40) m/uL Hgb (11.4-16.0) gm/dL Hct (34.0-46.0) % RDW (11.5-15.5) % Lymphocytes # (1.0-4.8) k/uL Carbon Dioxide (22-30) mmol/L BUN (7-17) mg/dL Creatinine (0.52-1.04) mg/dL Glucose (74-99) mg/dL POC Glucose (mg/dL) 142 H 284 H 330 H (75-99) mg/dL 10/13/18 10/13/18 10/13/18 Range/Units 04:50 04:50 07:21 RBC 2.51 L (3.80-5.40) m/uL Hgb 7.3 L (11.4-16.0) gm/dL Hct 22.8 L (34.0-46.0) % RDW 16.3 H (11.5-15.5) % Lymphocytes # 0.4 L (1.0-4.8) k/uL Carbon Dioxide 34 H (22-30) mmol/L BUN 41 H (7-17) mg/dL Creatinine 1.14 H (0.52-1.04) mg/dL Glucose 151 H (74-99) mg/dL POC Glucose (mg/dL) 223 H (75-99) mg/dL 10/13/18 Range/Units 11:45 RBC (3.80-5.40) m/uL Hgb (11.4-16.0) gm/dL Hct (34.0-46.0) % RDW (11.5-15.5) % Lymphocytes # (1.0-4.8) k/uL Carbon Dioxide (22-30) mmol/L BUN (7-17) mg/dL Creatinine (0.52-1.04) mg/dL Glucose (74-99) mg/dL POC Glucose (mg/dL) 197 H (75-99) mg/dL Assessment and Plan Assessment: Assessment #1 coronary artery disease and status post PCI of the LAD #2 cardiogenic shock requiring mechanical support #3 acute respiratory failure #4 acute renal failure #5 anemia Plan #1 continue the current medical regimen #2 continue the Lasix IV #3 continue monitor the kidney function and electrolytes #4 continue physical therapy #5 follow-up with the patient
[2018-10-13] MEDS: HYDROcodone/APAP 5-325MG 1 EACH TAB PO PRN (15:30)
[2018-10-13 17:17] LABS: Glucose,Whole Blood 280 mg/dL (75-99)
[2018-10-13] MEDS ORDERED: INSULIN ASPART (NovoLOG) 100 UNIT/ML VIAL SQ ONE (17:40)
[2018-10-13] MEDS: SODIUM CHLORIDE 0.9% 1,000 ML IV SCH (17:41)
[2018-10-13] MEDS: AMITRIPTYLINE HCL 25 MG TAB PO SCH (21:43)
[2018-10-13] MEDS: INSULIN DETEMIR (LEVEMIR) 100 UNIT/ML SYR SQ SCH (21:43)
[2018-10-13] MEDS: ATORVASTATIN 80 MG TAB PO SCH ×2 (21:43→21:58)
[2018-10-13 21:54] LABS: Glucose,Whole Blood 312 mg/dL (75-99)
--- NOTE | 2018-10-13 22:27 | PN ---
PROGRESS NOTE DATE OF SERVICE: 10/13/2018 This 63-year-old woman was admitted with CAD, status post cardiac stenting and had multiple cardiac arrests. The patient also had acute patient also complains of . The patient is being closely monitored at this time in ICU. Multiple consultants are following the patient closely. The most recent chest x-ray which was personally reviewed by me showed some cardiomegaly and bilateral infiltrates also. The patient being followed by Dr. Finley in the outpatient setting. PAST MEDICAL HISTORY: Reviewed. REVIEW OF SYSTEMS: CARDIOVASCULAR: As mentioned earlier. RESPIRATORY: As mentioned earlier. GI: No nausea or vomiting. no dysuria. CENTRAL NERVOUS SYSTEM: No numbness, weakness. MEDICATIONS: Reviewed and include: 1. [place] 5 mg q.4 p.r.n. 2. Maalox 30 mL q.4 hours. 3. DuoNeb q.i.d. and p.r.n. 4. Xanax 0.5 q.6h. 5. Elavil 25 mg q.h.s. 6. Aspirin 81 mg. 7. Lipitor 80 mg q.h.s. 9. Hexadrol 4 mg p.o. q.i.d. 10.Lasix 20 mg IV b.i.d. 11.Neurontin 200 mg p.o. t.i.d. 12.Apresoline 10 mg IV q.4 p.r.n. 13.Levemir 26 units subcu. 15.Glucose 850 mg p.o. b.i.d. 16.Lopressor 50 mg p.o. b.i.d. 17.Replacement protocols. Protonix, Actos, Effient. PHYSICAL EXAM: Patient is alert, oriented x3. Pulse 104. Blood pressure 140/85. Respirations 16, temperature normal, pulse ox 98% on room air. HEENT: Conjunctivae normal. NECK: No jugular venous distention. CARDIOVASCULAR: S1, S2 muffled. RESPIRATORY SYSTEM: Breath sounds diminished at the bases. Scattered rhonchi and crackles. ABDOMEN: Soft, nontender. LEGS: No edema. No swelling. NERVOUS SYSTEM: Higher functions as mentioned earlier. Moves all four extremities. No focal deficits. SKIN: No ulcer, rash or bleeding. LYMPHATICS: No lymph nodes palpable in the neck, axillae or groin. JOINTS: No active deforming arthropathy. LAB: Hemoglobin 7.3, creatinine is 1.14. Glucose noted. ASSESSMENT: 1. Coronary artery disease, status post cardiac stenting of the LAD. 2. Multiple cardiac arrest. 3. Acute hypoxic respiratory failure status post mechanical ventilation secondary to coronary artery disease. 4. Chronic obstructive pulmonary disease. 5. Congestive heart failure acute exacerbation with acute on chronic systolic dysfunction ejection fraction 35% to 40 percent. 6. Diabetes mellitus type 2 uncontrolled with hyperglycemia. 7. Hypertension. 8. Hyperlipidemia. 9. Diabetic peripheral neuropathy. 10.Left vocal cord paralysis and history of intubation. 11.Acute tubular necrosis, acute renal failure. 12.Dysphagia with aspiration pneumonia, liquids with clinically improved. 13.Acute blood loss anemia as expected from surgery, improved. RECOMMENDATIONS AND DISCUSSION: Recommend to continue current medications, management and symptomatic treatment. Continue with monitoring closely. Continue with antiplatelet agents. Repeat labs. Continue the bronchodilators. Closely follow with multiple consultants. Prognosis guarded. . MMODL / IJN: [id number] / MTDD
[2018-10-14 05:30] LABS: Anisocytosis Slight; Basophils % (A) 0 %; Eosinophils % (A) 0 %; HCT 25.8 % (34.0-46.0); HGB 7.9 gm/dL (11.4-16.0); Hypochromasia Slight; Lymphocytes # (A) 0.6 k/uL (1.0-4.8); Lymphocytes % (A) 5 %; MCH 27.4 pg (25.0-35.0); MCHC 30.5 g/dL (31.0-37.0); MCV 89.8 fL (80.0-100.0); Mean Platelet Volume 7.1; Monocytes # (A) 0.4 k/uL (0-1.0); Monocytes % (A) 3 %; Neutrophils # (A) 10.7 k/uL (1.3-7.7); Neutrophils % (A) 91 %; Platelet Count 476 k/uL (150-450); RBC 2.87 m/uL (3.80-5.40); RDW 16.5 % (11.5-15.5); WBC 11.8 k/uL (3.8-10.6)
[2018-10-14 05:40] LABS: Calcium 9.2 mg/dL (8.4-10.2); Magnesium 1.8 mg/dL (1.6-2.3); Potassium 4.6 mmol/L (3.5-5.1)
[2018-10-14] MEDS: HYDROcodone/APAP 5-325MG 1 EACH TAB PO PRN (05:59)
[2018-10-14 06:56] LABS: Glucose,Whole Blood 162 mg/dL (75-99)
[2018-10-14] MEDS: MAGNESIUM SULFATE-D5W PMX 1 GM in DEXTROSE/WATER 1 100ML.BAG IVPB SCH ×2 (07:07→08:16)
[2018-10-14] MEDS: INSULIN ASPART (NovoLOG) 100 UNIT/ML VIAL SQ SCH ×4 (07:14→21:29)
[2018-10-14] MEDS: IPRATROPIUM-ALBUTEROL 3 ML NEB INHALATION SCH ×4 (07:41→20:21)
[2018-10-14] MEDS ORDERED: VANCOMYCIN TROUGH DUE 1 EACH MISC MISCELLANE ONE (08:00)
--- NOTE | 2018-10-14 08:01 | PN ---
PROGRESS NOTE DATE OF SERVICE: October 14, 2018 This is a 63-year-old female who was admitted back on October 02. She apparently had a cardiac catheterization and during the cardiac catheterization had acute cardiac arrest with prolonged course of CPR. She apparently had a stent of the LAD done. She apparently was shocked 4 times during the resuscitation phase. She was intubated on the during the cardiac arrest and extubated on October 06. She has a history of acute hypoxemic respiratory failure secondary to that. The patient also has a history of cardiogenic pulmonary edema secondary to LV dysfunction, CAD with previous stenting as mentioned, type 2 diabetes, diabetic peripheral neuropathy, acute anemia requiring 2 units of PRBCs, acute kidney injury, dysphagia, and chest wall pain. The patient currently is resting relatively comfortably. She is on 2 L nasal cannula. Her IV is 0.9 at 20 mL an hour. Her chest x-ray shows some mild fluid overload. All in all though, the patient seems to be doing much better. When Dr. Garcia saw the patient yesterday, he felt the patient could be transferred out of the ICU yesterday and to a monitored bed. Apparently, no monitored beds are available. She does look well. Her chest x-ray does show some very mild fluid overload. She does have bilateral effusions, left greater than right with some mild cephalization and a pattern consistent with some interstitial edema. Current vital signs are reviewed. Temperature 98.1, heart rate 94, respiratory rate 20, blood pressure 150/84, mean 106 and saturations on 2 L of 97%. Appears in no acute distress. HEENT examination is grossly unremarkable. Mucous membranes are moist. No oral lesions. NECK: Supple. Full range of motion. No adenopathy or thyromegaly. Neck veins are flat. CARDIOVASCULAR: Examination reveals regular rhythm and rate. S1, S2 normal. No S3, S4, or murmur. LUNGS: Reveal mostly clear breath sounds. There is a few scattered bibasilar crackles. No wheezes or rhonchi. Breath sounds are equal bilaterally. ABDOMEN: Soft. Bowel sounds are heard. EXTREMITIES: Are intact. Minimal edema. No cyanosis or clubbing. SKIN: Without rash. NEUROLOGIC: Examination is brief but nonfocal. Lab data reviewed. White count 11.8, hemoglobin 7.9, hematocrit 25.8, platelet count 476,000. Sodium 139, potassium 4.6, chloride 100, CO2 is 30. BUN is 45, creatinine 1.07. Anion gap is 9. The previous N terminal proBNP was 16,400. Microbiologic study shows sputum that was positive for H influenzae way back on October 05. Medications are reviewed. The patient's medications all appeared to be relatively appropriate. ASSESSMENT: 1. Acute cardiac arrest during cardiac catheterization with stenting of the LAD with prolonged course of CPR requiring defibrillation/cardioversion x4 and intubation on October 02 with subsequent extubation on October 06 for respiratory failure. 2. Acute hypoxemic respiratory failure secondary to cardiopulmonary arrest requiring transient intubation and mechanical ventilation. 3. Coronary artery disease, status post stenting of the LAD. 4. Left ventricular dysfunction and cardiogenic pulmonary edema, which required intubation and mechanical ventilation. 5. Type 2 diabetes mellitus. 6. Diabetic peripheral neuropathy. 7. Acute anemia, requiring 2 units of PRBCs. 8. Acute kidney injury, suspect acute tubular necrosis. 9. Dysphagia, currently being evaluated by Speech Pathology. 10.Chest wall pain. PLAN: The patient is doing relatively well. She has been weaned down to 2 L nasal cannula. She was extubated on October 06. The patient's lab work appears relatively normal. She is still mildly anemic. We will continue to monitor closely. Medications seem appropriate. We will continue to follow. Prognosis is guarded. The patient could be transferred out to a monitored 6-selective bed. Left central line was discontinued. GA / CARMENN: [id number] /
--- NOTE | 2018-10-14 08:07 | XR ---
EXAMINATION TYPE: XR chest 1V portable DATE OF EXAM: 10/14/2018 COMPARISON: NONE HISTORY: Shortness TECHNIQUE: Single frontal view of the chest is obtained. FINDINGS: The heart is mildly enlarged. There is left basilar airspace disease. Vascular congestion has improved slightly. Mild interstitial change persists. There are small, bilateral effusions. Left- sided central line. No sizable IMPRESSION: Pleural-parenchymal changes are stable correlate for CHF otherwise consider pneumonia
[2018-10-14] MEDS: ASPIRIN 81 MG PO SCH (08:19)
[2018-10-14] MEDS: DEXAMETHASONE 4 MG TAB PO SCH ×3 (08:19→21:28)
[2018-10-14] MEDS: GABAPENTIN 100 MG CAP PO SCH ×4 (08:19→21:28)
[2018-10-14] MEDS: LISINOPRIL 5 MG TAB PO SCH (08:19)
[2018-10-14] MEDS: FUROSEMIDE 10 MG/ML 2 ML VIAL IV SCH ×2 (08:19→21:27)
[2018-10-14] MEDS: SPIRONOLACTONE 25 MG TAB PO SCH (08:20)
[2018-10-14] MEDS: PANTOPRAZOLE SODIUM 40 MG GRANULE PKT PO SCH (08:20)
[2018-10-14] MEDS: metFORMIN 850 MG TAB PO SCH ×2 (08:20→21:27)
[2018-10-14] MEDS: METOPROLOL TARTRATE 50 MG TAB PO SCH ×2 (08:20→21:28)
[2018-10-14] MEDS: PRASUGREL 10 MG TAB PO SCH (08:20)
--- NOTE | 2018-10-14 08:46 | PN ---
PROGRESS NOTE Mrs. Fortune is a 63-year-old female who underwent stenting of her left anterior descending artery and had evidence of cardiogenic shock with recurrent ventricular tachycardia and ventricular fibrillation requiring prolonged CPR, had an Impella placed. The Impella was removed in 36 hours and she has been extubated. She is sitting up in the chair, feeling stronger, denying any chest pain. Her breathing is stable. She denies any dizziness or palpitation. She denies any nausea. She continues to be at this time on aspirin once a day, Lipitor 80 mg daily, furosemide 20 mg IV q.12 hours, lisinopril 5 mg daily, metformin 850 mg twice a day, metoprolol tartrate 50 mg twice a day and Effient 10 mg daily, Aldactone 25 mg daily. PHYSICAL EXAMINATION: Blood pressure 150/80 with the heart rate in the 90s. Her blood pressure earlier was in the one teens to 120s. LUNGS: A few crackles at the bases. HEART: Regular rate and rhythm. S1, S2. No S3. No rub appreciated. ABDOMEN: Soft, nontender, obese. EXTREMITIES: +1 edema. LAB DATA: Lab data revealed BUN and creatinine of 45 and 1.07. Potassium 4.6. Hemoglobin of 7.9. IMPRESSION: 1. Status post stenting of the left anterior descending artery, complicated by cardiogenic shock, stable. 2. Ischemic cardiomyopathy. 3. Diabetes mellitus. 4. Prior history of smoking. 5. Acute kidney injury, improved. 6. Chest wall tenderness related to the CPR. 7. Hypertension. RECOMMENDATION: From the cardiac standpoint, we will continue present therapy. I will continue IV Lasix for 24 hours then switch her to oral. Increase her level of activity. DC the López catheter. Hopefully, she will be able to transfer to telemetry floor and increase her level activity and depending on her progress, further recommendation will be made. MMODL / IJN: [id number] /
[2018-10-14] MEDS: PIOGLITAZONE 15 MG TAB PO SCH ×2 (09:43→21:28)
[2018-10-14 12:00] LABS: Glucose,Whole Blood 209 mg/dL (75-99)
[2018-10-14] MEDS: SODIUM CHLORIDE 0.9% 1,000 ML IV SCH (16:03)
--- NOTE | 2018-10-14 16:49 | PN ---
PROGRESS NOTE DATE OF SERVICE: 10/14/2018 This 63-year-old woman who was admitted with CAD also had multiple cardiac arrests. The patient also had acute hypoxic respiratory failure. The patient has improved significantly. The most recent chest x-ray which was reviewed personally by me and done today showed still some changes of CHF. Multiple consultants are following the patient closely. The patient is being closely monitored in the ICU. Past medical history reviewed. REVIEW OF SYSTEMS: CARDIOVASCULAR SYSTEM: As mentioned earlier. RESPIRATORY SYSTEM: As mentioned earlier. GI: No nausea, vomiting. : No dysuria or retention. NERVOUS SYSTEM: No numbness, weakness. CURRENT MEDICATIONS: Reviewed. They include: 1. [place] 5 mg q.4 p.r.n. 2. Maalox. 3. DuoNeb q.i.d. and p.r.n. 4. Xanax 0.25 q.6. 5. Elavil 25 mg at bedtime. 6. Aspirin 81 mg daily. 7. Troponin p.r.n. 8. Hexadrol 4 mg t.i.d. 9. Zetia 10 mg p.o. daily. 10.Lasix 20 mg IV b.i.d. 11.Neurontin 200 mg q.i.d. 12.Apresoline 10 mg q.4 p.r.n. 13.NovoLog. 14.Levemir. 15.Zestril. 16.Glucophage. 17.Lopressor. 18.Replacement protocols. 19.Actos. 20.Effient. 21.Ambien. Doses were reviewed. PHYSICAL EXAMINATION: Patient is alert, oriented x3. Pulse 82, blood pressure 137/73, respiration 20, temperature normal, pulse ox 95% on room air. HEENT: Conjunctivae normal. Oral mucosa moist. NECK: No jugular venous distention. No carotid bruit. No lymph node enlargement. CARDIOVASCULAR SYSTEM: S1, S2 muffled. RESPIRATORY SYSTEM: Breath sounds diminished at the bases. Bilateral scattered rhonchi and crackles. Expiratory wheezing also present. ABDOMEN: Soft, non-tender. No mass palpable. LEGS: No edema. No swelling. NERVOUS SYSTEM: Higher functions as mentioned earlier. Moves all 4 limbs. No focal motor or sensory deficit. LYMPHATICS: No lymph node palpable in neck, axillae or groin. SKIN: No ulcer, rash, bleeding. JOINTS: No active deforming arthropathy. LABS: WBC 11.8, hemoglobin 7.9, sodium 139, potassium 4.6, creatinine 1.07. ASSESSMENT: 1. Coronary artery disease, status post stenting of the left anterior descending coronary artery. 2. Multiple cardiac arrests during the hospitalization because of coronary artery disease. 3. Acute hypoxic respiratory failure, status post mechanical ventilation secondary to coronary artery disease. 4. Chronic obstructive pulmonary disease. 5. Congestive heart failure, acute exacerbation, with acute on chronic systolic dysfunction, ejection 35% to 40%. 6. Diabetes mellitus, type 2, uncontrolled with hyperglycemia. 7. Hypertension. 8. Hyperlipidemia. 9. Diabetic peripheral neuropathy. 10.Left vocal cord paralysis and history of intubation. 11.Acute tubular necrosis, acute renal failure. 12.Dysphagia with liquids, improved. 13.Acute blood loss anemia, as expected with surgery, improved. RECOMMENDATIONS AND DISCUSSION: I recommend to continue current medications, continue with the monitoring, symptomatic treatment. Follow the patient closely. Continue with the diuretics. Continue the rest of the medications. The blood pressure has improved significantly. Antiplatelet agents. Guarded prognosis. Further recommendations to follow. The patient is on beta blockers as well. PT/OT evaluation. Increase ambulation. MMODL / IJN: [id number] /
[2018-10-14 17:22] LABS: Glucose,Whole Blood 238 mg/dL (75-99)
[2018-10-14 20:48] LABS: Glucose,Whole Blood 343 mg/dL (75-99)
[2018-10-14] MEDS: AMITRIPTYLINE HCL 25 MG TAB PO SCH (21:27)
[2018-10-14] MEDS: INSULIN DETEMIR (LEVEMIR) 100 UNIT/ML SYR SQ SCH (21:29)
[2018-10-15] MEDS: HYDROcodone/APAP 5-325MG 1 EACH TAB PO PRN (00:39)
[2018-10-15 05:19] LABS: Anisocytosis Slight; Basophils % (A) 0 %; Eosinophils % (A) 0 %; HCT 25.1 % (34.0-46.0); HGB 8.1 gm/dL (11.4-16.0); Hypochromasia Slight; Lymphocytes # (A) 0.6 k/uL (1.0-4.8); Lymphocytes % (A) 4 %; MCH 28.6 pg (25.0-35.0); MCHC 32.2 g/dL (31.0-37.0); MCV 88.7 fL (80.0-100.0); Mean Platelet Volume 7.4; Monocytes # (A) 0.2 k/uL (0-1.0); Monocytes % (A) 2 %; Neutrophils # (A) 13.6 k/uL (1.3-7.7); Neutrophils % (A) 94 %; Platelet Count 438 k/uL (150-450); Poikilocytosis Slight; RBC 2.83 m/uL (3.80-5.40); RDW 16.7 % (11.5-15.5); WBC 14.5 k/uL (3.8-10.6)
[2018-10-15 05:30] LABS: Calcium 9.3 mg/dL (8.4-10.2); Magnesium 1.8 mg/dL (1.6-2.3); Potassium 4.6 mmol/L (3.5-5.1)
[2018-10-15] MEDS: IPRATROPIUM-ALBUTEROL 3 ML NEB INHALATION SCH ×4 (06:43→20:03)
[2018-10-15 07:22] LABS: Glucose,Whole Blood 150 mg/dL (75-99)
[2018-10-15] MEDS: INSULIN ASPART (NovoLOG) 100 UNIT/ML VIAL SQ SCH ×7 (07:44→20:35)
--- NOTE | 2018-10-15 07:59 | XR ---
EXAMINATION TYPE: XR chest 1V portable DATE OF EXAM: 10/15/2018 COMPARISON: Prior chest x-ray 10/14/2018 HISTORY: Shortness of breath TECHNIQUE: Single frontal view of the chest is obtained. FINDINGS: Retrocardiac density with obscured left hemidiaphragm persists. Patient is rotated. No abimael dent pneumothorax. Heart size is likely stable. Interstitium may be improved slightly in the interval . IMPRESSION: Suspect some improvement in patient's volume status. Left lower lobe atelectasis versus pneumonia, difficult to exclude small effusion. Follow-up recommended.
--- NOTE | 2018-10-15 08:13 | PN ---
PROGRESS NOTE DATE OF SERVICE: 10/15/2018 This is a 63-year-old female who was admitted back on October 02, 2018. She had cardiac catheterization and during the catheterization, she had an acute cardiac arrest with prolonged course of CPR. She apparently had a stent of the LAD done at that time as well. She apparently was defibrillated, cardioverted 4 times during the resuscitation phase. She was intubated post arrest on October 02 and extubated on October 06. She has a history of acute hypoxemic respiratory failure secondary to that. In addition, she had a history of cardiogenic pulmonary edema secondary to LV dysfunction, CAD with previous stenting as mentioned, type 2 diabetes mellitus, diabetic peripheral neuropathy, acute anemia requiring 2 units of PRBCs, acute kidney injury, dysphagia and chest wall pain. Currently, the patient is doing well. She had an uneventful night. She has been weaned down to note O2 2 L by nasal cannula in the evening when she sleeps and just room air during the daytime. She is not receiving any IV fluids. Her chest x-rays have continued to show some mild fluid overload and today's chest x-ray does still reveal some very mild bilateral pleural effusion and/or atelectasis at the left base. Clinically, she is doing well. She can lay flat in bed. No respiratory distress. She denies any chest pain or chest discomfort. No shortness of breath, cough, wheezing, or phlegm production. Current vital signs include a temperature which is in the normal range at 98.1, heart rate 71, respiratory rate 16, blood pressure 160/87 mean 111 and 2 L saturation of 99%. She is saturating above 93% on room air. Appears in no acute distress, resting comfortably. Actually sleeping when I first went into the room. She voices no complaints. HEENT: Examination is grossly unremarkable. Mucous membranes are moist. Nasal O2 noted. NECK: Supple. Full range of motion. No adenopathy or thyromegaly. Neck veins are flat. CARDIOVASCULAR: Examination reveals regular rhythm and rate. S1, S2 normal. Heart rate in the 70s. No murmur. LUNG: Reveal clear breath sounds. No wheezes or rhonchi. No crackles. Breath sounds equal bilaterally. ABDOMEN: Soft. Bowel sounds are heard. There is no masses or tenderness. EXTREMITIES: Intact. No cyanosis, clubbing, or edema. SKIN: Without rash. NEUROLOGIC: Examination is brief but nonfocal. A sputum sample from October 05 shows evidence in my haemophilus with influenzae. This has been treated. LAB DATA: Includes a white count 14.5, hemoglobin 8.1, hematocrit 25.1, platelet count 438,000. Sodium 136, potassium 4.6, chloride 96, CO2 is 31, anion gap is 9. BUN and creatinine were 51 and 1.23. Medications are reviewed. They all appeared to be appropriate. She is receiving updrafts. Probably does not need them anymore. ASSESSMENT: 1. Acute cardiac arrest during cardiac catheterization with prolonged course of CPR requiring defibrillation/cardioversion x4 and intubation on October 02 with subsequent extubation on October 06 for respiratory failure. 2. Status post stenting of the left anterior descending artery. 3. Acute hypoxemic respiratory failure secondary to cardiopulmonary arrest requiring intubation/mechanical ventilation, as above. 4. Coronary artery disease. 5. Left ventricular dysfunction and cardiogenic pulmonary edema, resolved. 6. Type 2 diabetes mellitus. 7. Diabetic peripheral neuropathy. 8. Acute anemia, requiring 2 units of PRBCs. 9. Acute kidney injury, likely secondary to ATN. 10.Dysphagia, currently being evaluated by Speech Pathology. 11.Chest wall pain. PLAN: The patient is doing well. Will continue to follow. Prognosis is guarded. The patient is still receiving O2 at nighttime. No oxygen during the daytime. Not receiving any supplemental fluids. Will continue to follow. The patient could likely be discharged to [address] [place] [address]. MMODL / IJN: [id number] /
--- NOTE | 2018-10-15 08:16 | PN ---
PROGRESS NOTE Mrs. Fortune is a 63-year-old female who underwent stenting of the LAD and was complicated by cardiogenic shock and recurrent ventricular fibrillation requiring prolonged CPR and requiring Impella placement. She is doing well this morning. She was sitting up in the chair yesterday. Denied any chest pain. Her breathing has been stable. She is stronger. She denies any dizziness or nausea. She has some chest wall tenderness related to the CPR. She continues to be on aspirin once a day, Zetia 10 mg daily, Lasix 20 mg IV q.12 hours, lisinopril 5 mg daily, metformin 850 mg twice a day, Effient 10 mg daily, spironolactone 25 mg daily, and metoprolol tartrate 50 mg twice a day. PHYSICAL EXAMINATION: Blood pressure 160/80 with the heart rate in the 70s. LUNGS: Clear. HEART: Regular rate and rhythm. S1, S2. No S3. No rub appreciated. ABDOMEN: Soft, nontender. EXTREMITIES: Trace edema. LAB DATA: Lab data revealed BUN and creatinine of 51 and 1.23, potassium 4.6, hemoglobin of 8.1. IMPRESSION: 1. Status post stenting of the LAD. 2. Cardiogenic shock, resolved. 3. Hypertension. 4. Hyperlipidemia. 5. Diabetes mellitus. 6. Prior history of smoking. RECOMMENDATION: From the cardiac standpoint, I will stop the IV diuretics at this time. We will continue to increase level of physical activity. I will add hydralazine to her regimen to improve her blood pressure control. Depending on her progress, further recommendation will be made. MMODL / IJN: [id number] /
[2018-10-15] MEDS: DEXAMETHASONE 4 MG TAB PO SCH ×3 (08:25→20:30)
[2018-10-15] MEDS: ASPIRIN 81 MG PO SCH (08:25)
[2018-10-15] MEDS: GABAPENTIN 100 MG CAP PO SCH ×4 (08:26→20:30)
[2018-10-15] MEDS: EZETIMIBE 10 MG TAB PO SCH (08:26)
[2018-10-15] MEDS: hydrALAZINE HCL 25 MG TAB PO SCH ×2 (08:26→20:29)
[2018-10-15] MEDS: FUROSEMIDE 20 MG TAB PO SCH (08:26)
[2018-10-15] MEDS: metFORMIN 850 MG TAB PO SCH ×2 (08:27→20:30)
[2018-10-15] MEDS: PANTOPRAZOLE SODIUM 40 MG GRANULE PKT PO SCH (08:27)
[2018-10-15] MEDS: SPIRONOLACTONE 25 MG TAB PO SCH (08:28)
[2018-10-15] MEDS: PIOGLITAZONE 15 MG TAB PO SCH ×2 (08:28→20:30)
[2018-10-15] MEDS: PRASUGREL 10 MG TAB PO SCH (08:33)
[2018-10-15] MEDS: METOPROLOL TARTRATE 50 MG TAB PO SCH ×2 (08:33→20:30)
[2018-10-15] MEDS: LISINOPRIL 5 MG TAB PO SCH (08:33)
[2018-10-15] MEDS: MAGNESIUM SULFATE-D5W PMX 1 GM in DEXTROSE/WATER 1 100ML.BAG IVPB SCH ×2 (08:48→10:58)
[2018-10-15 12:07] LABS: Glucose,Whole Blood 151 mg/dL (75-99)
--- NOTE | 2018-10-15 18:54 | PN ---
PROGRESS NOTE DATE OF SERVICE: 10/15/2018 This 63-year-old woman who was admitted with CAD also multiple episodes of cardiac arrest. The patient also had CHF and fluid overload. The patient is being closely monitored at this time. A portable chest x-ray done today, which was personally reviewed by me, showed still some congestion, including the volume status. Past medical history reviewed. REVIEW OF SYSTEMS: CARDIOVASCULAR SYSTEM: No angina, palpitations. RESPIRATORY SYSTEM: As mentioned earlier. GI: No nausea, vomiting. : No dysuria or retention. NERVOUS SYSTEM: Diffusely weak. CURRENT MEDICATIONS: Reviewed. They include: 1. [place] 5 mg q.4 p.r.n. 3. DuoNeb q.i.d. and p.r.n. 4. Xanax 0.25 q.6. 5. Elavil 25 mg p.o. at bedtime. 6. Aspirin 81 mg p.o. daily. 7. Atropine 0.5. 8. Hexadrol 4 mg p.o. t.i.d. 9. Zetia 10 mg p.o. daily. 10.Lasix 20 mg p.o. daily. 11.Neurontin 200 mg p.o. q.8. 12.Apresoline 25 mg b.i.d. 13.NovoLog before meals and at bedtime. 14.Levemir 26 units subcutaneously at bedtime. 15.Zestril 5 mg p.o. daily. 16.Glucophage 850 mg p.o. b.i.d. 17.Lopressor 50 mg p.o. b.i.d. 18.Replacement protocol. 19.Actos 15 mg p.o. b.i.d. 20.Effient 10 mg p.o. daily. 21.Aldactone 25 mg p.o. daily. 22.Ambien 5 mg at bedtime p.r.n. PHYSICAL EXAMINATION: Patient is alert, oriented x3. Pulse 75, blood pressure 105/71, respiration 18, temperature normal, pulse ox 96% on 2 L. HEENT: Conjunctivae normal. Oral mucosa moist. NECK: No jugular venous distention. No carotid bruit. No lymph node enlargement. CARDIOVASCULAR SYSTEM: S1, S2 muffled. RESPIRATORY SYSTEM: Breath sounds diminished at the bases. A few scattered rhonchi and crackles. ABDOMEN: Soft, non-tender. LEGS: No edema. No swelling. NERVOUS SYSTEM: No focal deficit. LABS: WBC 14.5, hemoglobin is 8.1, sodium 136, creatinine 1.23. ASSESSMENT: 1. Coronary artery disease, status post stenting of the left anterior descending coronary artery. 2. Multiple cardiac arrests during this current hospitalization because of coronary artery disease. 3. Acute hypoxic respiratory failure, status post mechanical ventilation secondary to coronary artery disease. 4. Chronic obstructive pulmonary disease. 5. Congestive heart failure, acute exacerbation, with acute on chronic systolic dysfunction, ejection fraction 35% to 40%. 6. Diabetes mellitus, type 2, uncontrolled with hyperglycemia. 7. Hypertension. 8. Hyperlipidemia. 9. Diabetic peripheral neuropathy. 10.Left vocal cord paralysis with history of intubation. 11.Acute tubular necrosis with acute renal failure. 12.Dysphagia with liquids, improved. 13.Acute blood loss anemia, as expected from surgery; improved. RECOMMENDATIONS AND DISCUSSION: I recommend to continue current medications, continue with the monitoring, symptomatic treatment. Continue with the diuretics. Monitor fluid and electrolyte balance closely. Once the patient is stabilized, I would recommend ECF rehab at this time. Otherwise, the patient is on p.o. Lasix and the bronchodilators. Blood is also being monitored. Further recommendations to follow. MMODL / IJN: [id number] / STEPHANIE
[2018-10-15] MEDS: AMITRIPTYLINE HCL 25 MG TAB PO SCH (20:30)
[2018-10-15] MEDS: INSULIN DETEMIR (LEVEMIR) 100 UNIT/ML SYR SQ SCH (20:35)
[2018-10-15 20:36] LABS: Glucose,Whole Blood 142 mg/dL (75-99)
[2018-10-16 05:23] LABS: Calcium 9.1 mg/dL (8.4-10.2); Magnesium 2.1 mg/dL (1.6-2.3); Potassium 4.7 mmol/L (3.5-5.1)
[2018-10-16 05:26] LABS: Anisocytosis Slight; Basophils % (A) 0 %; Eosinophils % (A) 0 %; HCT 26.3 % (34.0-46.0); HGB 8.4 gm/dL (11.4-16.0); Hypochromasia Moderate; Lymphocytes # (A) 0.6 k/uL (1.0-4.8); Lymphocytes % (A) 4 %; MCH 28.9 pg (25.0-35.0); MCHC 31.7 g/dL (31.0-37.0); MCV 91.1 fL (80.0-100.0); Mean Platelet Volume 7.6; Monocytes # (A) 0.4 k/uL (0-1.0); Monocytes % (A) 2 %; Neutrophils # (A) 14.3 k/uL (1.3-7.7); Neutrophils % (A) 93 %; Platelet Count 425 k/uL (150-450); RBC 2.89 m/uL (3.80-5.40); RDW 17.1 % (11.5-15.5); WBC 15.4 k/uL (3.8-10.6)
[2018-10-16 07:07] LABS: Glucose,Whole Blood 135 mg/dL (75-99)
[2018-10-16] MEDS: INSULIN ASPART (NovoLOG) 100 UNIT/ML VIAL SQ SCH ×4 (07:11→12:21)
--- NOTE | 2018-10-16 07:42 | XR ---
EXAMINATION TYPE: XR chest 1V portable DATE OF EXAM: 10/16/2018 COMPARISON: Prior chest x-ray 10/15/2018 HISTORY: Shortness of breath TECHNIQUE: Single frontal view of the chest is obtained. FINDINGS: Retrocardiac density persists, the left hemidiaphragm is obscured. No evident pneumothorax . Heart size is stable. There are overlying cardiac leads. Patchy basilar density again noted on the right. Aorta is dense. IMPRESSION: Probable basilar atelectasis, correlate to exclude pneumonia.
[2018-10-16] MEDS: IPRATROPIUM-ALBUTEROL 3 ML NEB INHALATION SCH ×2 (07:54→11:07)
[2018-10-16 08:27] VITALS: TEMP 97.7
--- NOTE | 2018-10-16 09:11 | PN ---
PROGRESS NOTE Mrs. Fortune is a 63-year-old female who underwent stenting of her LAD and had evidence of cardiogenic shock requiring multiple cardioversions and prolonged CPR as well as initial intubation. She had an Impella that was removed. She is feeling better overall. Her breathing is better. She denies any chest pain except for some soreness in the chest from the CPR. She has been ambulating. She denies any dizziness or palpitation. The plan is to transfer her to [facility] today. She continues to be in sinus mechanism and hemodynamically stable. She continues to be at this time on aspirin once a day, Zetia 10 mg daily, furosemide 20 mg daily, hydralazine 25 mg twice a day, lisinopril 5 mg daily, metoprolol tartrate 50 mg twice a day, metformin 850 mg twice a day, spironolactone 25 mg daily and Effient 10 mg daily. PHYSICAL EXAMINATION: Blood pressure 113/60 with the heart rate in the 70s. LUNGS: Clear. HEART: Regular rate and rhythm. S1, S2. No S3. No rub. ABDOMEN: Soft, nontender. EXTREMITIES: No significant edema. LAB DATA: Lab data revealed BUN and creatinine 15 and 1.2. Potassium 4.7. Hemoglobin of 8.4, white blood cell of 15.4. IMPRESSION: 1. Status post stenting of the LAD. 2. Cardiogenic shock and prolonged CPR, stable. 3. Respiratory failure, stable. 4. Renal failure, improving. 5. History of diabetes. 6. Prior history of smoking. 7. Hyperlipidemia. RECOMMENDATION: From the cardiac standpoint, we will continue present therapy. Follow the renal function as an outpatient. I am hopeful that she will be able to be transferred to [facility] today and increase her level activity gradually. MMODL / IJN: [id number] /
[2018-10-16] MEDS: PANTOPRAZOLE SODIUM 40 MG GRANULE PKT PO SCH (09:55)
[2018-10-16] MEDS: GABAPENTIN 100 MG CAP PO SCH (09:56)
[2018-10-16] MEDS: metFORMIN 850 MG TAB PO SCH (09:56)
[2018-10-16] MEDS: METOPROLOL TARTRATE 50 MG TAB PO SCH (09:56)
[2018-10-16] MEDS: PIOGLITAZONE 15 MG TAB PO SCH (09:56)
[2018-10-16] MEDS: SPIRONOLACTONE 25 MG TAB PO SCH (09:56)
[2018-10-16] MEDS: PRASUGREL 10 MG TAB PO SCH (09:56)
[2018-10-16] MEDS: hydrALAZINE HCL 25 MG TAB PO SCH (09:56)
[2018-10-16] MEDS: ASPIRIN 81 MG PO SCH (09:57)
[2018-10-16] MEDS: EZETIMIBE 10 MG TAB PO SCH (09:57)
[2018-10-16] MEDS: LISINOPRIL 5 MG TAB PO SCH (09:57)
[2018-10-16] MEDS: FUROSEMIDE 20 MG TAB PO SCH (09:57)
[2018-10-16] MEDS: DEXAMETHASONE 4 MG TAB PO SCH (09:57)
--- NOTE | 2018-10-16 10:29 | P.DS ---
Providers Date of admission: 10/02/18 16:12 Attending physician: Al Grace Consults: 10/02/18 16:25 Consult Physician Routine Consulting Provider: [facility] Consult Reason/Comments: Post Interventional patient Do you want consulting provider notified?: Already Contacted 10/02/18 16:28 Consult Physician Routine Consulting Provider: Nadeem Atkinson Consult Reason/Comments: vent Do you want consulting provider notified?: Already Contacted 10/07/18 15:55 Consult Physician Routine Consulting Provider: Maico Blunt Consult Reason/Comments: medical management Do you want consulting provider notified?: Yes 10/09/18 13:25 Consult Physician Routine Consulting Provider: Jose Guzman Consult Reason/Comments: possible vocal cord paralysis Do you want consulting provider notified?: Yes Primary care physician: Noah Finley [place] [facility] Course: Final diagnosis Coronary disease status post stenting of the LAD Multiple cardiac arrests during the current hospitalization because of coronary disease Acute hypoxic respiratory failure status post mechanical ventilation secondary to coronary disease COPD acute exacerbation CHF acute exacerbation with acute on chronic systolic dysfunction ejection fraction 35-40% Diabetes was type II uncontrolled with hyperglycemia Hypertension Hyperlipidemia Diabetic peripheral neuropathy Left vocal cord paralysis with history of intubation. Acute tubular necrosis with acute renal failure Dysphagia to liquids improved Acute blood loss anemia as expected from surgery improved Discharge disposition This patient be discharged in a stable condition with guarded prognosis to [facility]. Total time taken 35 minutes. History of present illness This 63-year-old woman with a past medical history multiple medical problems was admitted with the features of coronary artery disease. Patient had cardiac And stenting as described earlier. Patient had multiple cardiac arrest and acute respiratory failure during the hospitalization. Patient was monitored in ICU. Patient was mechanically ventilated. Patient improved significantly. Patient was extubated. Patient was seen by multiple consultants including pulmonary Dr. Jose Kearns and as was cardiology. Patient still weak. Mentation are adjusted. PTOT was was evaluated. Patient will be sent to [facility] rehab at this time. On exam vitals are stable cardio S1 and S2 normal respirator system clear to auscultation few scattered rhonchi . Abdomen soft nontender nervous system no focal deficit mild diffuse weakness. I recommended the patient to follow Dr. Finley and cardiology for close follow- up after discharge from [facility]. Plan - Discharge Summary Discharge Rx Participant: No New Discharge Prescriptions: New Spironolactone [Aldactone] 25 mg PO DAILY tab hydrALAZINE HCL [Apresoline] 25 mg PO BID tab Aspirin 81 mg PO DAILY chew Ipratropium-Albuterol Nebulize [Duoneb 0.5 mg-3 mg/3 ml Soln] 3 ml INHALATION RT-TID ampul.neb Prasugrel [Effient] 10 mg PO DAILY tab Furosemide [Lasix] 20 mg PO DAILY tab Insulin Detemir (Levemir) [Levemir] 26 unit SQ HS syr Metoprolol Tartrate [Lopressor] 50 mg PO BID tab Gabapentin [Neurontin] 200 mg PO QID #10 cap Nitroglycerin Sl Tabs [Nitrostat] 0.4 mg SUBLINGUAL Q5M PRN tab PRN Reason: Chest Pain INSULIN ASPART (NovoLOG) [NovoLOG (formulary)] 6 unit SQ AC-TID vial INSULIN ASPART (NovoLOG) [NovoLOG (formulary)] 0 unit SQ ACHS vial Lisinopril [Zestril] 5 mg PO DAILY tab Ezetimibe [Zetia] 10 mg PO DAILY tab Continue Pioglitazone HCl/Metformin HCl [Pioglitazone-Metformin ] 1 tab PO BID Amitriptyline HCl [Elavil] 25 mg PO HS #5 tab Discontinued Hydrochlorothiazide [Hydrodiuril] 12.5 mg PO DAILY Colesevelam [Welchol] 625 mg PO DAILY Insulin Degludec [Tresiba Flextouch U-200] See Protocol SQ HS Ibuprofen [Motrin] 800 mg PO Q12H PRN PRN Reason: Pain Gabapentin 800 mg PO QID Discharge Medication List Pioglitazone HCl/Metformin HCl [Pioglitazone-Metformin ] 1 tab PO BID 06/12/18 [History] Amitriptyline HCl [Elavil] 25 mg PO HS #5 tab 10/16/18 [Rx] Aspirin 81 mg PO DAILY chew 10/16/18 [Rx] Ezetimibe [Zetia] 10 mg PO DAILY tab 10/16/18 [Rx] Furosemide [Lasix] 20 mg PO DAILY tab 10/16/18 [Rx] Gabapentin [Neurontin] 200 mg PO QID #10 cap 10/16/18 [Rx] INSULIN ASPART (NovoLOG) [NovoLOG (formulary)] 0 unit SQ ACHS vial 10/16/18 [Rx] INSULIN ASPART (NovoLOG) [NovoLOG (formulary)] 6 unit SQ AC-TID vial 10/16/18 [Rx] Insulin Detemir (Levemir) [Levemir] 26 unit SQ HS syr 10/16/18 [Rx] Ipratropium-Albuterol Nebulize [Duoneb 0.5 mg-3 mg/3 ml Soln] 3 ml INHALATION RT-TID ampul.neb 10/16/18 [Rx] Lisinopril [Zestril] 5 mg PO DAILY tab 10/16/18 [Rx] Metoprolol Tartrate [Lopressor] 50 mg PO BID tab 10/16/18 [Rx] Nitroglycerin Sl Tabs [Nitrostat] 0.4 mg SUBLINGUAL Q5M PRN tab 10/16/18 [Rx] Prasugrel [Effient] 10 mg PO DAILY tab 10/16/18 [Rx] Spironolactone [Aldactone] 25 mg PO DAILY tab 10/16/18 [Rx] hydrALAZINE HCL [Apresoline] 25 mg PO BID tab 10/16/18 [Rx] Follow up Appointment(s)/Referral(s): Brett Peguero, [NON-STAFF] - As Needed Activity/Diet/Wound Care/Special Instructions: Diet cardiac Activity as tolerated Follow-up with Dr. Finley after discharge. Follow-up with the basin finish operator tig welder advice Follow Dr. Abrams or Dr. Martinez in the [place].
--- NOTE | 2018-10-16 11:35 | PN ---
PROGRESS NOTE DATE OF SERVICE: October 16, 2018 This is a 63-year-old female who was admitted back on October 02. She came with a cardiac catheterization and during the catheterization she had acute cardiac arrest with prolonged course of CPR. She had a stent placed in the LAD done at the time as well. She apparently was defibrillator or cardioverted 4 times during her resuscitation phase. She was initially intubated post arrest on October 02 and was extubated successfully on October 06. Here in the ICU she has been doing well. She does have a history of acute hypoxemic respiratory failure secondary to the above, in addition, she has a history of cardiogenic pulmonary edema secondary to LV dysfunction, CAD with previous stenting of the LAD as mentioned above, type 2 diabetes mellitus, diabetic peripheral neuropathy, acute anemia requiring 2 units of PRBCs, acute kidney injury, dysphagia and chest wall pain secondary to chest compressions. She is resting comfortably. She is up in the chair. She is getting O2 at 2 L by nasal cannula. No IV fluids. The chest x-ray does continue to show some very mild fluid overload. She apparently is going to be transferred out to room [facility] today. This is -[facility] with telemetry. The plan long-term is to be transferred over to [facility]. Today, she has no complaints including chest discomfort or shortness of breath. Currently, temperature 97.7 heart rate 86, respiratory rate 17, blood pressure 141/73, mean 95 and 2 L saturation is 100%. Appears in no acute distress. HEENT: Examination is grossly unremarkable. Mucous membranes are moist. No oral lesions. NECK: Supple. Full range of motion. No adenopathy or thyromegaly. Neck veins are flat. CARDIOVASCULAR: Examination reveals regular rhythm and rate. S1, S2 normal. There is no S3, S4, or murmur. Heart sounds are distant. LUNGS: Reveal mostly clear breath sounds. A few scattered rhonchi. No wheezes or crackles. ABDOMEN: Soft. Bowel sounds are heard. EXTREMITIES: Are intact. No significant cyanosis, clubbing, or edema. SKIN: Without rash. NEUROLOGIC: Examination is brief but nonfocal. Labs are reviewed. White count 15.4, hemoglobin 8.4, hematocrit 26.3, platelet count 425,000. Sodium 136, potassium 4.7, chloride 99, CO2 is 28. Anion gap is 9. BUN and creatinine were 59 and 1.20. Microbiologic study show evidence of Haemophilus influenzae in the sputum. A chest x-ray done today shows some minimal basilar atelectasis. Medications are reviewed. ASSESSMENT: 1. Acute cardiac arrest during cardiac catheterization with prolonged course of CPR requiring defibrillation/cardioversion x4 and intubation on October 02 with subsequent extubation on October 06 for respiratory failure. 2. Status post stenting of the left anterior descending coronary artery. 3. Acute hypoxemic respiratory failure secondary to cardiopulmonary arrest requiring intubation/mechanical ventilation as above. 4. Coronary artery disease. 5. Left ventricular dysfunction with cardiogenic pulmonary edema, resolved. 6. Type 2 diabetes mellitus. 7. Diabetic peripheral neuropathy. 8. Acute anemia, requiring 2 units of PRBCs. 9. Acute kidney injury, secondary to acute tubular necrosis. 10.Dysphagia, currently being evaluated by Speech Pathology. 11.Chest wall pain, secondary to chest compressions. PLAN: The patient has been weaned down to 2 L. She is not receiving any IV fluids. She will be transferred out to [address] [place] [address]. technician terminal and repeater, the plan is to be transferred to [facility]. She does knee rehab. She is somewhat weak. She is not having any respiratory and/or chest issues at this time. MMODL / IJN: [id number] /
[2018-10-16 12:23] LABS: Glucose,Whole Blood 152 mg/dL (75-99)
[2018-10-16 13:39] VITALS: BP 109/56; PULSE 78; RESP 14
[2018-10-16 14:15] LABS: Glucose,Whole Blood 219 mg/dL (75-99)
[2018-10-16 14:15] LABS: Glucose,Whole Blood 418 mg/dL (75-99)
== END 2018-10-16 15:19 | DRG 215 ==
LOC: CATHCVL 12:01 → 2SICU 16:12
PROVIDERS: ADMIT Internal Medicine Interventional Cardiology; ATTEND Internal Medicine Interventional Cardiology
PROC: B2111ZZ Fluoroscopy of Multiple Coronary Arteries using Low Osmolar Contrast (ICD-10-PCS; 2018-10-02)
PROC: 5A12012 Performance of Cardiac Output, Single, Manual (ICD-10-PCS; 2018-10-02)
PROC: 0BH17EZ Insertion of Endotracheal Airway into Trachea, Via Natural or Artificial Opening (ICD-10-PCS; 2018-10-02)
PROC: 5A1945Z Respiratory Ventilation, 24-96 Consecutive Hours (ICD-10-PCS; 2018-10-02)
PROC: 0D9670Z Drainage of Stomach with Drainage Device, Via Natural or Artificial Opening (ICD-10-PCS; 2018-10-02)
PROC: 03HY32Z Insertion of Monitoring Device into Upper Artery, Percutaneous Approach (ICD-10-PCS; 2018-10-02)
PROC: 4A133B1 Monitoring of Arterial Pressure, Peripheral, Percutaneous Approach (ICD-10-PCS; 2018-10-02)
PROC: 4A133J1 Monitoring of Arterial Pulse, Peripheral, Percutaneous Approach (ICD-10-PCS; 2018-10-02)
PROC: 05HN33Z Insertion of Infusion Device into Left Internal Jugular Vein, Percutaneous Approach (ICD-10-PCS; 2018-10-02)
PROC: 5A2204Z Restoration of Cardiac Rhythm, Single (ICD-10-PCS; 2018-10-02)
PROC: 02HA3RZ Insertion of Short-term External Heart Assist System into Heart, Percutaneous Approach (ICD-10-PCS; principal; 2018-10-02 13:30)
PROC: 5A0221D Assistance with Cardiac Output using Impeller Pump, Continuous (ICD-10-PCS; 2018-10-02 13:30)
PROC: 027035Z Dilation of Coronary Artery, One Artery with Two Drug-eluting Intraluminal Devices, Percutaneous Approach (ICD-10-PCS; 2018-10-02 13:30)
PROC: 30243N1 Transfusion of Nonautologous Red Blood Cells into Central Vein, Percutaneous Approach (ICD-10-PCS; 2018-10-03)
PROC: 3E0G76Z Introduction of Nutritional Substance into Upper GI, Via Natural or Artificial Opening (ICD-10-PCS; 2018-10-03)
PROC: 02PA3RZ Removal of Short-term External Heart Assist System from Heart, Percutaneous Approach (ICD-10-PCS; 2018-10-04)
PROC: 0CJS8ZZ Inspection of Larynx, Via Natural or Artificial Opening Endoscopic (ICD-10-PCS; 2018-10-09)
PROC: 5A09557 Assistance with Respiratory Ventilation, Greater than 96 Consecutive Hours, Continuous Positive Airway Pressure (ICD-10-PCS; 2018-10-10)
DX: I25.10 Atherosclerotic heart disease of native coronary artery without angina pectoris (principal); J96.01 Acute respiratory failure with hypoxia; N17.0 Acute kidney failure with tubular necrosis; I49.01 Ventricular fibrillation; R57.0 Cardiogenic shock; I50.23 Acute on chronic systolic (congestive) heart failure; J69.0 Pneumonitis due to inhalation of food and vomit; D62 Acute posthemorrhagic anemia; I97.710 Intraoperative cardiac arrest during cardiac surgery; E87.2 Acidosis; J98.11 Atelectasis; J44.1 Chronic obstructive pulmonary disease with (acute) exacerbation; E11.42 Type 2 diabetes mellitus with diabetic polyneuropathy; E11.649 Type 2 diabetes mellitus with hypoglycemia without coma; J38.01 Paralysis of vocal cords and larynx, unilateral; I11.0 Hypertensive heart disease with heart failure; R13.10 Dysphagia, unspecified; E11.65 Type 2 diabetes mellitus with hyperglycemia; I25.5 Ischemic cardiomyopathy; I25.84 Coronary atherosclerosis due to calcified coronary lesion; E78.5 Hyperlipidemia, unspecified; J04.0 Acute laryngitis; R49.0 Dysphonia; I25.2 Old myocardial infarction; Z86.73 Personal history of transient ischemic attack (TIA), and cerebral infarction without residual deficits; Z87.891 Personal history of nicotine dependence; Z79.4 Long term (current) use of insulin; Z79.84 Long term (current) use of oral hypoglycemic drugs; Z79.899 Other long term (current) drug therapy; Z86.14 Personal history of Methicillin resistant Staphylococcus aureus infection; Z88.8 Allergy status to other drugs, medicaments and biological substances; Z83.3 Family history of diabetes mellitus; Z83.2 Family history of diseases of the blood and blood-forming organs and certain disorders involving the immune mechanism; Z81.8 Family history of other mental and behavioral disorders; Y84.0 Cardiac catheterization as the cause of abnormal reaction of the patient, or of later complication, without mention of misadventure at the time of the procedure
CPT/HCPCS: 33992; 36600; 71045; 74230; 80048; 80053; 80202; 81001; 82805; 83036; 83615; 83735; 83880; 84100; 84132; 85025; 85027; 85347; 85384; 85610; 85730; 86850; 86900; 86901; 86920; 87040; 87070; 87086; 87205; 92950; 93306; 93308; 93458; 94002; 94003; 94640; 94660; C1874

== ENCOUNTER 2019-01-10 12:15 | Observation (INO) | payer BC ==
[2019-01-10] MEDS ORDERED: IPRATROPIUM-ALBUTEROL 3 ML NEB INHALATION STA (12:28)
--- NOTE | 2019-01-10 12:29 | ED ---
SOB HPI - General Chief Complaint: Shortness of Breath Stated Complaint: SOB Time Seen by Provider: 01/10/19 12:28 Source: patient, RN notes reviewed, old records reviewed Mode of arrival: wheelchair Limitations: physical limitation - History of Present Illness Initial Comments: This is a 63-year-old female the ER for evaluation. Patient does say for e valuation of significant shortness of breath shortness of breath cough and congestion. Patient has no travel history no sick contacts. No nausea vomiting or diarrhea. Patient is stridorous, patient does have stridor history of secondary to recent intubation MD Complaint: shortness of breath, cough -: days(s) Radiation: back Severity: mild Severity scale (1-10): 3 Quality: dull Consistency: constant Improves With: nothing Worsens With: nothing Known History Of: congestive heart failure Context: recent URI, recent illness Associated Symptoms: chest pain, pain with inspiration, cough, other Treatments Prior to Arrival: none - Related Data Home Medications Medication Instructions Recorded Confirmed Pioglitazone HCl/Metformin HCl 1 tab PO BID 06/12/18 10/02/18 [Pioglitazone-Metformin 15-850] Previous Rx's Medication Instructions Recorded Amitriptyline HCl [Elavil] 25 mg PO HS #5 tab 10/16/18 Aspirin 81 mg PO DAILY chew 10/16/18 Ezetimibe [Zetia] 10 mg PO DAILY tab 10/16/18 Furosemide [Lasix] 20 mg PO DAILY tab 10/16/18 Gabapentin [Neurontin] 200 mg PO QID #10 cap 10/16/18 INSULIN ASPART (NovoLOG) [NovoLOG 0 unit SQ ACHS vial 10/16/18 (formulary)] INSULIN ASPART (NovoLOG) [NovoLOG 6 unit SQ AC-TID vial 10/16/18 (formulary)] Insulin Detemir (Levemir) [Levemir] 26 unit SQ HS syr 10/16/18 Ipratropium-Albuterol Nebulize 3 ml INHALATION RT-TID ampul.neb 10/16/18 [Duoneb 0.5 mg-3 mg/3 ml Soln] Lisinopril [Zestril] 5 mg PO DAILY tab 10/16/18 Metoprolol Tartrate [Lopressor] 50 mg PO BID tab 10/16/18 Nitroglycerin Sl Tabs [Nitrostat] 0.4 mg SUBLINGUAL Q5M PRN tab 10/16/18 Prasugrel [Effient] 10 mg PO DAILY tab 10/16/18 Spironolactone [Aldactone] 25 mg PO DAILY tab 10/16/18 hydrALAZINE HCL [Apresoline] 25 mg PO BID tab 10/16/18 Allergies Allergy/AdvReac Type Severity Reaction Status Date / Time [id number] Reductase AdvReac muscle Verified 01/10/19 12:22 Inhibitor pain/breakdown Review of Systems ROS Statement: Those systems with pertinent positive or pertinent negative responses have been documented in the HPI. ROS Other: All systems not noted in ROS Statement are negative. Past Medical History Past Medical History: Coronary Artery Disease (CAD), CVA/TIA, Diabetes Mellitus, Hyperlipidemia, Hypertension, Myocardial Infarction ([place]) Additional Past Medical History / Comment(s): Diabetic peripheral neuropathyongoing, cardiac arrest, back pain History of Any Multi-Drug Resistant Organisms: MRSA Date of last positivie culture/infection: 04/14/2015 MDRO Source:: head Past Surgical History: Heart Catheterization With Stent, Tubal Ligation Additional Past Surgical History / Comment(s): bilat cataraTS Past Anesthesia/Blood Transfusion Reactions: No Reported Reaction Date of Last Stent Placement:: 10/02/18 Past Psychological History: No Psychological Hx Reported Smoking Status: Former smoker Past Alcohol Use History: None Reported Past Drug Use History: None Reported - Past Family History Mother Family Medical History: Dementia, Diabetes Mellitus Father Family Medical History: Diabetes Mellitus, Deep Vein Thrombosis (DVT) General Exam - General Exam Comments Initial Comments: Stridor noted but that is from prior elevation Limitations: physical limitation General appearance: alert, in no apparent distress Head exam: Present: atraumatic, normocephalic, normal inspection Eye exam: Present: normal appearance, PERRL, EOMI. Absent: scleral icterus, conjunctival injection, periorbital swelling ENT exam: Present: normal exam, mucous membranes moist Neck exam: Present: normal inspection. Absent: tenderness, meningismus, lymphadenopathy Respiratory exam: Present: normal lung sounds bilaterally. Absent: respiratory distress, wheezes, rales, rhonchi, stridor Cardiovascular Exam: Present: regular rate, normal rhythm, normal heart sounds. Absent: systolic murmur, diastolic murmur, rubs, gallop, clicks GI/Abdominal exam: Present: soft, normal bowel sounds. Absent: distended, te nderness, guarding, rebound, rigid Extremities exam: Present: normal inspection, full ROM, normal capillary refill. Absent: tenderness, pedal edema, joint swelling, calf tenderness Back exam: Present: normal inspection Neurological exam: Present: alert, oriented X3, CN II-XII intact Psychiatric exam: Present: normal affect, normal mood Skin exam: Present: warm, dry, intact, normal color. Absent: rash Course Vital Signs 01/10/19 01/10/19 01/10/19 12:19 12:33 13:19 Temperature 97.4 F L Pulse Rate 99 90 Respiratory 24 20 Rate Blood Pressure 127/81 O2 Sat by Pulse 100 Oximetry 01/10/19 01/10/19 13:27 13:35 Temperature Pulse Rate 96 94 Respiratory 26 H Rate Blood Pressure 122/84 O2 Sat by Pulse 100 Oximetry - Reevaluation(s) Reevaluation #1: 01/10/19 13:53 Medical records reviewed Reevaluation #2: 01/10/19 13:53 Symptoms are currently improved Medical Decision Making - Medical Decision Making 63 female the ER for evaluation. Patient does say for evaluation regards to shortness of breath with cough. Stridor secondary to intubation. Patient will be admitted for trending of troponin and breathing treatmnets, steroids and monitoring of airway - Lab Data Result diagrams: 01/10/19 12:45 01/10/19 12:45 Lab Results 01/10/19 01/10/19 01/10/19 Range/Units 12:45 12:45 12:45 WBC 6.7 (3.8-10.6) k/uL RBC 4.36 (3.80-5.40) m/uL Hgb 11.9 (11.4-16.0) gm/dL Hct 37.0 (34.0-46.0) % MCV 84.9 (80.0-100.0) fL MCH 27.3 (25.0-35.0) pg MCHC 32.2 (31.0-37.0) g/dL RDW 13.0 (11.5-15.5) % Plt Count 346 (150-450) k/uL Neutrophils % 71 % Lymphocytes % 19 % Monocytes % 4 % Eosinophils % 4 % Basophils % 0 % Neutrophils # 4.8 (1.3-7.7) k/uL Lymphocytes # 1.3 (1.0-4.8) k/uL Monocytes # 0.3 (0-1.0) k/uL Eosinophils # 0.2 (0-0.7) k/uL Basophils # 0.0 (0-0.2) k/uL PT 9.6 (9.0-12.0) sec INR 0.9 (<1.2) APTT 21.9 L (22.0-30.0) sec Sodium 138 (137-145) mmol/L Potassium 4.6 (3.5-5.1) mmol/L Chloride 93 L (98-107) mmol/L Carbon Dioxide 32 H (22-30) mmol/L Anion Gap 13 mmol/L BUN 37 H (7-17) mg/dL Creatinine 1.66 H (0.52-1.04) mg/dL Est GFR (CKD-EPI)AfAm 37 (>60 ml/min/1.73 sqM) Est GFR (CKD-EPI)NonAf 32 (>60 ml/min/1.73 sqM) Glucose 193 H (74-99) mg/dL Calcium 9.8 (8.4-10.2) mg/dL Magnesium 2.3 (1.6-2.3) mg/dL Total Bilirubin 0.4 (0.2-1.3) mg/dL AST 40 H (14-36) U/L ALT 23 (9-52) U/L Alkaline Phosphatase 152 H (38-126) U/L Troponin I (0.000-0.034) ng/mL NT-Pro-B Natriuret Pep pg/mL Total Protein 8.7 H (6.3-8.2) g/dL Albumin 4.3 (3.5-5.0) g/dL 01/10/19 01/10/19 Range/Units 12:45 12:45 WBC (3.8-10.6) k/uL RBC (3.80-5.40) m/uL Hgb (11.4-16.0) gm/dL Hct (34.0-46.0) % MCV (80.0-100.0) fL MCH (25.0-35.0) pg MCHC (31.0-37.0) g/dL RDW (11.5-15.5) % Plt Count (150-450) k/uL Neutrophils % % Lymphocytes % % Monocytes % % Eosinophils % % Basophils % % Neutrophils # (1.3-7.7) k/uL Lymphocytes # (1.0-4.8) k/uL Monocytes # (0-1.0) k/uL Eosinophils # (0-0.7) k/uL Basophils # (0-0.2) k/uL PT (9.0-12.0) sec INR (<1.2) APTT (22.0-30.0) sec Sodium (137-145) mmol/L Potassium (3.5-5.1) mmol/L Chloride (98-107) mmol/L Carbon Dioxide (22-30) mmol/L Anion Gap mmol/L BUN (7-17) mg/dL Creatinine (0.52-1.04) mg/dL Est GFR (CKD-EPI)AfAm (>60 ml/min/1.73 sqM) Est GFR (CKD-EPI)NonAf (>60 ml/min/1.73 sqM) Glucose (74-99) mg/dL Calcium (8.4-10.2) mg/dL Magnesium (1.6-2.3) mg/dL Total Bilirubin (0.2-1.3) mg/dL AST (14-36) U/L ALT (9-52) U/L Alkaline Phosphatase (38-126) U/L Troponin I 0.034 (0.000-0.034) ng/mL NT-Pro-B Natriuret Pep 1060 pg/mL Total Protein (6.3-8.2) g/dL Albumin (3.5-5.0) g/dL - EKG Data -: EKG Interpreted by Me (KG shows sinus rhythm rate of 95, CT 160, QRS 82, QTc 464) - Radiology Data Radiology results: report reviewed (CXR is negative for acute disease), image reviewed Disposition Clinical Impression: Acute exacerbation of chronic obstructive airways disease, CAD (coronary artery disease), Elevated troponin, Stridor Disposition: ADMITTED IP TO THIS [facility] Condition: Good Is patient prescribed a controlled substance at d/c from ED?: No Referrals: Noah Finley DO [Primary Care Provider] - 1-2 days
[2019-01-10 13:08] LABS: Basophils % (A) 0 %; Eosinophils # (A) 0.2 k/uL (0-0.7); Eosinophils % (A) 4 %; HGB 11.9 gm/dL (11.4-16.0); Lymphocytes # (A) 1.3 k/uL (1.0-4.8); Lymphocytes % (A) 19 %; MCH 27.3 pg (25.0-35.0); MCHC 32.2 g/dL (31.0-37.0); MCV 84.9 fL (80.0-100.0); Monocytes # (A) 0.3 k/uL (0-1.0); Monocytes % (A) 4 %; Neutrophils # (A) 4.8 k/uL (1.3-7.7); Neutrophils % (A) 71 %; Platelet Count 346 k/uL (150-450); RBC 4.36 m/uL (3.80-5.40); WBC 6.7 k/uL (3.8-10.6)
[2019-01-10 13:11] LABS: Albumin 4.3 g/dL (3.5-5.0); Calcium 9.8 mg/dL (8.4-10.2); Magnesium 2.3 mg/dL (1.6-2.3); Potassium 4.6 mmol/L (3.5-5.1); Total Bilirubin 0.4 mg/dL (0.2-1.3); Total Protein 8.7 g/dL (6.3-8.2)
--- NOTE | 2019-01-10 13:23 | XR ---
EXAMINATION TYPE: XR chest 2V DATE OF EXAM: 01/10/2019 COMPARISON: Chest x-ray October 16, 2018 HISTORY: Difficulty breathing. Heart catheter October 2018. TECHNIQUE: Frontal and lateral views of the chest are obtained. FINDINGS: There is chronic parenchymal changes without suspicious focal air space opacity, pleural e ffusion, or pneumothorax seen. The cardiac silhouette size is stable and upper limits of normal. Ath erosclerotic aorta. The osseous structures are demineralized. IMPRESSION: Chronic changes without acute pulmonary process.
[2019-01-10 13:33] LABS: INR 0.9 (<1.2); Prothrombin Time 9.6 sec (9.0-12.0)
[2019-01-10 13:43] LABS: Partial Thromboplastin Time 21.9 sec (22.0-30.0)
[2019-01-10] MEDS ORDERED: DEXAMETHASONE SOD PHOSPHATE 10 MG/ML 1 ML VIAL IV STA (14:21)
[2019-01-10] MEDS ORDERED: ASPIRIN 81 MG PO STA (14:21)
[2019-01-10] MEDS ORDERED: NITROGLYCERIN SL TABS 0.4 MG TAB SUBLINGUAL PRN (14:21)
[2019-01-10] MEDS: SODIUM CHLORIDE 0.9% 1,000 ML IV SCH (14:46)
[2019-01-10] MEDS: IPRATROPIUM-ALBUTEROL 3 ML NEB INHALATION PRN (19:28)
[2019-01-10 21:27] LABS: Glucose,Whole Blood 489 mg/dL (75-99)
[2019-01-10 21:29] LABS: Glucose,Whole Blood 528 mg/dL (75-99)
[2019-01-10] MEDS: MAGNESIUM OXIDE 400 MG TAB PO SCH (21:37)
[2019-01-10] MEDS: GABAPENTIN 400 MG CAP PO SCH (21:37)
[2019-01-10] MEDS: INSULIN ASPART (NovoLOG) 100 UNIT/ML VIAL SQ SCH (21:37)
[2019-01-10] MEDS: AMITRIPTYLINE HCL 25 MG TAB PO SCH (21:37)
[2019-01-10] MEDS: INSULIN DETEMIR (LEVEMIR) 100 UNIT/ML SYR SQ SCH (21:39)
[2019-01-11 00:42] LABS: Glucose,Whole Blood 435 mg/dL (75-99)
[2019-01-11] MEDS: INSULIN DETEMIR (LEVEMIR) 100 UNIT/ML SYR SQ SCH (00:52)
[2019-01-11] MEDS: SODIUM CHLORIDE 0.9% 1,000 ML IV SCH ×3 (00:54→21:44)
[2019-01-11 05:59] LABS: Glucose,Whole Blood 302 mg/dL (75-99)
[2019-01-11] MEDS: INSULIN ASPART (NovoLOG) 100 UNIT/ML VIAL SQ SCH ×4 (06:01→18:01)
[2019-01-11 06:59] LABS: Calcium 9.9 mg/dL (8.4-10.2); Potassium 4.8 mmol/L (3.5-5.1)
[2019-01-11] MEDS: IPRATROPIUM-ALBUTEROL 3 ML NEB INHALATION PRN ×4 (07:52→19:36)
[2019-01-11] MEDS: ASPIRIN 81 MG PO SCH (08:37)
[2019-01-11] MEDS: GABAPENTIN 400 MG CAP PO SCH ×4 (08:37→21:44)
[2019-01-11] MEDS: FUROSEMIDE 40 MG TAB PO SCH (08:37)
[2019-01-11] MEDS: LISINOPRIL 5 MG TAB PO SCH (08:37)
[2019-01-11] MEDS: PRASUGREL 10 MG TAB PO SCH (08:38)
[2019-01-11] MEDS: HYDROCHLOROTHIAZIDE 25 MG TAB PO SCH (08:38)
[2019-01-11] MEDS: MAGNESIUM OXIDE 400 MG TAB PO SCH ×2 (08:38→21:44)
[2019-01-11] MEDS ORDERED: ASPIRIN 325 MG TAB PO SCH (09:00)
[2019-01-11 11:56] LABS: Glucose,Whole Blood 456 mg/dL (75-99)
[2019-01-11] MEDS ORDERED: INSULIN REGULAR BOLUS (FROM DRIP BAG) IV ONE (12:28)
[2019-01-11 13:09] LABS: Glucose,Whole Blood 434 mg/dL (75-99)
[2019-01-11] MEDS ORDERED: ENOXAPARIN 40 MG/0.4 ML SYRINGE SQ SCH (13:30)
[2019-01-11] MEDS: INSULIN REGULAR 100 UNIT in SODIUM CHLORIDE 0.9% 100 ML IV SCH ×2 (13:36→14:12)
--- NOTE | 2019-01-11 13:41 | P.HPIM ---
History of Present Illness H&P Date: 01/11/19 Chief Complaint: Short of breath History of presenting complaint: This is a 63-year-old patient of Dr. Finley. Chronic stable medical conditions include hypertension, hyperlipidemia, diabetic peripheral neuropathy.Patient was in the hospital in October of this year having cardiac arrest following LAD angioplasty. Also pulmonary embolism. Patient had to be on the ventilator. Patient also was felt a left vocal cord paralysis probably from intubation. Patient that time also had acute tubular necrosis and also dysphagia with aspiration to thin liquids. Corrected improved. Subsequently she was thought to have tracheal stenosis. He did follow-up with ENT and did see a physician outside of the system here. She not sure about the results. Patient is an ex- smoker. Patient now presents with worsening short of breath and wheezing some cough no fever no chills. No sputum production. [place] to have COPD exacerbation. Patient really does not have a stridor but has some trouble with inspiration. This has been going on since her admission to the hospital following cardiac arrest. Patient is put on IV steroids bronchodilators. Sugars were running high has was put on insulin drip Review of systems: GEN.: Tired EYES: None HEENT: None NECK: None RESPIRATORY: As above CARDIOVASCULAR: None GASTROINTESTINAL: None GENITOURINARY: None MUSCULOSKELETAL: None LYMPHATICS: None HEMATOLOGICAL: None PSYCHIATRY: None NEUROLOGICAL: None Past medical history: Cardiac arrest following cardiac catheterization during stenting of LAD, coronary artery disease with stent to LAD, status post ventilator, suspected tracheal stenosis following intubation, COPD, and is mellitus type II, hypertension, hyperlipidemia, diabetic peripheral neuropathy, left vocal cord paralysis, acute tubular necrosis, Social history: Retired, smoked a pack a day for 30 years stopped in 2014. Lives with daughter. Family history: Dementia, diabetes mellitus Physical examination: VITAL SIGNS: 97.4, 99, 24, 120/81, 100% on room air GENERAL: BMI 35.0, sitting at edge of bed, short breath. EYES: Pupils equal. Conjunctiva normal. HEENT: External appearance of nose and ears normal, oral cavity grossly normal. NECK: JVD not raised; masses not palpable. HEART: First and second heart sounds are normal; no edema. LUNGS: Respiratory rate increased, some decreased breath sounds prolonged e xpiration. ABDOMEN: Soft, nontender, liver spleen not palpable, no masses palpable. PSYCH: [Alert and oriented x3; mood and affect slightly anxious l. NEUROLOGICAL: Cranial nerves grossly intact; no facial asymmetry, power and sensation grossly intact. 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 Pulmonary was consulted. Home medications resumed. Care was discussed with the patient. Questions were answered. Lovenox for DVT prophylaxis Past Medical History Past Medical History: Coronary Artery Disease (CAD), CVA/TIA, Diabetes Mellitus, Hyperlipidemia, Hypertension, Myocardial Infarction ([place]) Additional Past Medical History / Comment(s): Diabetic peripheral neuropathyongoing, cardiac arrest, back pain Last Myocardial Infarction Date:: unknown History of Any Multi-Drug Resistant Organisms: MRSA Date of last positivie culture/infection: 04/14/2015 MDRO Source:: head Past Surgical History: Heart Catheterization With Stent, Tubal Ligation Additional Past Surgical History / Comment(s): bilat cataraTS Past Anesthesia/Blood Transfusion Reactions: No Reported Reaction Date of Last Stent Placement:: 10/02/18 Past Psychological History: No Psychological Hx Reported Smoking Status: Former smoker Past Alcohol Use History: None Reported Additional Past Alcohol Use History / Comment(s): QUIT SMOKING 2004 Past Drug Use History: None Reported - Past Family History Mother Family Medical History: Dementia, Diabetes Mellitus Father Family Medical History: Diabetes Mellitus, Deep Vein Thrombosis (DVT) Medications and Allergies Home Medications Medication Instructions Recorded Confirmed Type Amitriptyline HCl [Elavil] 25 mg PO HS #5 tab 10/16/18 01/10/19 Rx Aspirin 81 mg PO DAILY chew 10/16/18 01/10/19 Rx Lisinopril [Zestril] 5 mg PO DAILY tab 10/16/18 01/10/19 Rx Prasugrel [Effient] 10 mg PO DAILY tab 10/16/18 01/10/19 Rx Furosemide [Lasix] 40 mg PO DAILY 01/10/19 01/10/19 History Gabapentin 800 mg PO QID 01/10/19 01/10/19 History Hydrochlorothiazide [Hydrodiuril] 25 mg PO DAILY 01/10/19 01/10/19 History INSULIN ASPART (NovoLOG) [NovoLOG See Protocol SQ ACHS 01/10/19 01/10/19 History (formulary)] Insulin Degludec [Tresiba] 24 units SQ HS 01/10/19 01/10/19 History Magnesium Oxide 400 mg PO BID 01/10/19 01/10/19 History Allergies Allergy/AdvReac Type Severity Reaction Status Date / Time Oydfgxq-Ctd-Riw Reductase AdvReac muscle Verified 01/10/19 17:44 Inhibitor pain/breakdown Physical Exam Vitals: Vital Signs Temp Pulse Pulse Resp BP BP Pulse Ox 01/11/19 12:50 100 01/11/19 12:38 100 01/11/19 11:15 97.6 F 103 H 20 133/95 98 01/11/19 08:03 120 H 01/11/19 07:52 112 H 96 01/11/19 07:40 98.5 F 107 H 18 114/73 99 01/11/19 00:00 98.5 F 111 H 19 136/67 96 01/10/19 20:00 98.2 F 106 H 19 131/56 98 01/10/19 19:40 104 H 01/10/19 19:30 106 H 01/10/19 19:17 97.6 F 99 20 124/66 97 01/10/19 18:37 98.2 F 100 26 H 137/84 97 01/10/19 17:30 92 24 129/82 96 01/10/19 16:30 96 26 H 100/62 97 01/10/19 15:30 99 24 106/56 95 01/10/19 14:30 78 26 H 118/86 95 01/10/19 14:21 97 01/10/19 13:35 94 26 H 122/84 100 Intake and Output 01/10/19 01/11/19 01/11/19 22:59 06:59 14:59 Intake Total 960 Balance 960 Intake: Oral 960 Other: Voiding Method Toilet # Voids 1 Weight 78.5 kg Results CBC & Chem 7: 01/10/19 12:45 01/11/19 06:07 Labs: Abnormal Lab Results - Last 24 Hours (Table) 01/10/19 01/10/19 01/10/19 Range/Units 12:45 18:47 21:26 APTT 21.9 L (22.0-30.0) sec Sodium (137-145) mmol/L Chloride (98-107) mmol/L Carbon Dioxide (22-30) mmol/L BUN (7-17) mg/dL Creatinine (0.52-1.04) mg/dL Glucose (74-99) mg/dL POC Glucose (mg/dL) 489 H (75-99) mg/dL Troponin I 0.037 H* (0.000-0.034) ng/mL LDL Cholesterol, Calc (0-99) mg/dL 01/10/19 01/11/19 01/11/19 Range/Units 21:28 00:40 05:57 APTT (22.0-30.0) sec Sodium (137-145) mmol/L Chloride (98-107) mmol/L Carbon Dioxide (22-30) mmol/L BUN (7-17) mg/dL Creatinine (0.52-1.04) mg/dL Glucose (74-99) mg/dL POC Glucose (mg/dL) 528 H 435 H 302 H (75-99) mg/dL Troponin I (0.000-0.034) ng/mL LDL Cholesterol, Calc (0-99) mg/dL 01/11/19 01/11/19 01/11/19 Range/Units 06:07 11:54 13:06 APTT (22.0-30.0) sec Sodium 136 L (137-145) mmol/L Chloride 94 L (98-107) mmol/L Carbon Dioxide 31 H (22-30) mmol/L BUN 51 H (7-17) mg/dL Creatinine 1.70 H (0.52-1.04) mg/dL Glucose 299 H (74-99) mg/dL POC Glucose (mg/dL) 456 H 434 H (75-99) mg/dL Troponin I (0.000-0.034) ng/mL LDL Cholesterol, Calc 113 H (0-99) mg/dL Thrombosis Risk Factor Assmnt - Choose All That Apply Each Risk Factor Represents 2 Points: Age 61-74 years Thrombosis Risk Factor Assessment Total Risk Factor Score: 2 Thrombosis Risk Factor Assessment Level: Low Risk
[2019-01-11] MEDS: ENOXAPARIN 30 MG/0.3 ML SYRINGE SQ SCH (13:45)
[2019-01-11 14:10] LABS: Glucose,Whole Blood 339 mg/dL (75-99)
[2019-01-11 14:22] LABS: Hemoglobin A1C 7.8 % (4.0-6.0)
[2019-01-11 14:33] LABS: Glucose,Whole Blood 290 mg/dL (75-99)
[2019-01-11 15:06] LABS: Glucose,Whole Blood 164 mg/dL (75-99)
[2019-01-11 17:18] LABS: Glucose,Whole Blood 63 mg/dL (75-99)
[2019-01-11 17:19] LABS: Glucose,Whole Blood 62 mg/dL (75-99)
[2019-01-11] MEDS ORDERED: INSULIN ASPART (NovoLOG) 100 UNIT/ML VIAL SQ SCH (17:30)
[2019-01-11 17:33] LABS: Glucose,Whole Blood 88 mg/dL (75-99)
[2019-01-11 18:06] LABS: Glucose,Whole Blood 193 mg/dL (75-99)
[2019-01-11] MEDS: methylPREDNISolone SOD SUCCI 40 MG/ML 1 ML VIAL IV SCH ×2 (18:14→22:55)
[2019-01-11 18:33] LABS: Glucose,Whole Blood 193 mg/dL (75-99)
[2019-01-11 20:35] LABS: Glucose,Whole Blood 267 mg/dL (75-99)
[2019-01-11] MEDS: AMITRIPTYLINE HCL 25 MG TAB PO SCH (21:44)
[2019-01-11 22:37] LABS: Glucose,Whole Blood 288 mg/dL (75-99)
[2019-01-12 00:46] LABS: Glucose,Whole Blood 170 mg/dL (75-99)
[2019-01-12 02:49] LABS: Glucose,Whole Blood 206 mg/dL (75-99)
[2019-01-12 04:43] LABS: Glucose,Whole Blood 232 mg/dL (75-99)
[2019-01-12 06:40] LABS: Calcium 9.8 mg/dL (8.4-10.2); Potassium 4.3 mmol/L (3.5-5.1)
[2019-01-12 06:45] LABS: Glucose,Whole Blood 219 mg/dL (75-99)
[2019-01-12] MEDS: SODIUM CHLORIDE 0.9% 1,000 ML IV SCH ×2 (06:51→15:48)
[2019-01-12] MEDS: INSULIN ASPART (NovoLOG) 100 UNIT/ML VIAL SQ SCH ×3 (07:13→17:03)
[2019-01-12] MEDS: IPRATROPIUM-ALBUTEROL 3 ML NEB INHALATION PRN ×4 (08:35→20:27)
[2019-01-12 08:37] LABS: Glucose,Whole Blood 265 mg/dL (75-99)
[2019-01-12] MEDS: GABAPENTIN 400 MG CAP PO SCH ×4 (08:46→20:33)
[2019-01-12] MEDS: methylPREDNISolone SOD SUCCI 40 MG/ML 1 ML VIAL IV SCH ×2 (08:46→15:48)
[2019-01-12] MEDS: FUROSEMIDE 40 MG TAB PO SCH (08:46)
[2019-01-12] MEDS: LISINOPRIL 5 MG TAB PO SCH (08:46)
[2019-01-12] MEDS: HYDROCHLOROTHIAZIDE 25 MG TAB PO SCH (08:46)
[2019-01-12] MEDS: ASPIRIN 81 MG PO SCH (08:46)
[2019-01-12] MEDS: MAGNESIUM OXIDE 400 MG TAB PO SCH ×2 (08:46→20:33)
[2019-01-12] MEDS: PRASUGREL 10 MG TAB PO SCH (08:46)
[2019-01-12] MEDS: ENOXAPARIN 30 MG/0.3 ML SYRINGE SQ SCH (08:46)
[2019-01-12 10:34] LABS: Glucose,Whole Blood 260 mg/dL (75-99)
[2019-01-12 12:38] LABS: Glucose,Whole Blood 203 mg/dL (75-99)
[2019-01-12 14:36] LABS: Glucose,Whole Blood 272 mg/dL (75-99)
[2019-01-12 16:43] LABS: Glucose,Whole Blood 231 mg/dL (75-99)
--- NOTE | 2019-01-12 17:36 | P.PN ---
Progress Note - Text Progress Note Date: 01/12/19 Chief Complaint: Short of breath interval history: This is a 63-year-old patient of Dr. Finley. Chronic stable medical conditions include hypertension, hyperlipidemia, diabetic peripheral neuropathy.Patient was in the hospital in October of this year having cardiac arrest following LAD angioplasty. Also pulmonary embolism. Patient had to be on the ventilator. Patient also was felt a left vocal cord paralysis probably from intubation. Patient that time also had acute tubular necrosis and also dysphagia with aspiration to thin liquids. Corrected improved. Subsequently she was thought to have tracheal stenosis. He did follow-up with ENT and did see a physician outside of the system here. She not sure about the results. Patient is an ex- smoker. Patient now presents with worsening short of breath and wheezing some cough no fever no chills. No sputum production. [place] to have COPD exacerbation. Patient really does not have a stridor but has some trouble with inspiration. This has been going on since her admission to the hospital following cardiac arr est. Patient is put on IV steroids bronchodilators. Sugars were running high has was put on insulin drip Today-breathing better. Less wheezing. Awaiting pulmonary input. Tolerating a diet. Remains on insulin drip. Review of systems: Was done for constitutional, cardiovascular, GI, pulmonary. relevant finding as above Active Medications Albuterol/Ipratropium (Duoneb 0.5 Mg-3 Mg/3 Ml Soln) 3 ml INHALATION RT-QID PRN PRN Reason: Shortness Of Breath Or Wheezing Last Admin: 01/12/19 15:57 Dose: 3 ml Documented by: Amitriptyline HCl (Elavil) 25 mg PO HS [facility] Last Admin: 01/11/19 21:44 Dose: 25 mg Documented by: Aspirin (Aspirin) 81 mg PO DAILY [facility] Last Admin: 01/12/19 08:46 Dose: 81 mg Documented by: Enoxaparin Sodium (Lovenox) 30 mg SQ DAILY [facility] Last Admin: 01/12/19 08:46 Dose: 30 mg Documented by: Furosemide (Lasix) 40 mg PO DAILY [facility] Last Admin: 01/12/19 08:46 Dose: 40 mg Documented by: Gabapentin (Neurontin) 800 mg PO QID [facility] Last Admin: 01/12/19 17:03 Dose: 800 mg Documented by: Hydrochlorothiazide (Hydrodiuril) 25 mg PO DAILY [facility] Last Admin: 01/12/19 08:46 Dose: 25 mg Documented by: Sodium Chloride (Saline 0.9%) 1,000 mls @ 100 mls/hr IV .Q10H [facility] Last Admin: 01/12/19 15:48 Dose: 100 mls/hr Documented by: Insulin Human Regular 100 unit (/ Sodium Chloride) 101 mls @ 0 mls/hr IV .Q0M [facility]; Protocol Last Titration: 01/12/19 16:30 Dose: Infused Documented by: Insulin Aspart (Novolog) 10 unit 0.13 unit/kg (10 unit) SQ AC-TID [facility] Last Admin: 01/12/19 17:03 Dose: 10 unit Documented by: Lisinopril (Zestril) 5 mg PO DAILY [facility] Last Admin: 01/12/19 08:46 Dose: 5 mg Documented by: Magnesium Oxide (Mag-Ox) 400 mg PO BID [facility] Last Admin: 01/12/19 08:46 Dose: 400 mg Documented by: Methylprednisolone Sodium Succinate (Solu-Medrol) 40 mg IV Q8HR [facility] Last Admin: 01/12/19 15:48 Dose: 40 mg Documented by: Nitroglycerin (Nitrostat) 0.4 mg SUBLINGUAL Q5M PRN PRN Reason: Chest Pain Prasugrel (Effient) 10 mg PO DAILY [facility] Last Admin: 01/12/19 08:46 Dose: 10 mg Documented by: Physical examination: VITAL SIGNS: 98.3, 99, 18, 147/51, 95% room air GENERAL: sitting up, less short of breath. EYES: Pupils equal. Conjunctiva normal. HEENT: External appearance of nose and ears normal, oral cavity grossly normal. NECK: JVD not raised; masses not palpable. HEART: First and second heart sounds are normal; no edema. LUNGS: Respiratory rate increased, some decreased breath sounds prolonged expiration. ABDOMEN: Soft, nontender, liver spleen not palpable, no masses palpable. PSYCH: [Alert and oriented x3; mood and affect slightly anxious l. NEUROLOGICAL: Cranial nerves grossly intact; no facial asymmetry, power and sensation grossly intact. 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 Looking better. Other medications to continue.continue insulin drip. Care was discussed with the patient. Await input from pulmonary.
[2019-01-12 18:32] LABS: Glucose,Whole Blood 218 mg/dL (75-99)
[2019-01-12] MEDS: INSULIN REGULAR 100 UNIT in SODIUM CHLORIDE 0.9% 100 ML IV SCH (18:35)
[2019-01-12 20:26] LABS: Glucose,Whole Blood 173 mg/dL (75-99)
[2019-01-12] MEDS: AMITRIPTYLINE HCL 25 MG TAB PO SCH (20:33)
[2019-01-12] MEDS ORDERED: methylPREDNISolone SOD SUCCI 40 MG/ML 1 ML VIAL IV SCH (21:00)
[2019-01-12 22:28] LABS: Glucose,Whole Blood 256 mg/dL (75-99)
[2019-01-13 00:25] LABS: Glucose,Whole Blood 264 mg/dL (75-99)
[2019-01-13 02:26] LABS: Glucose,Whole Blood 209 mg/dL (75-99)
[2019-01-13 04:42] LABS: Glucose,Whole Blood 174 mg/dL (75-99)
[2019-01-13 06:40] LABS: Glucose,Whole Blood 192 mg/dL (75-99)
[2019-01-13] MEDS: SODIUM CHLORIDE 0.9% 1,000 ML IV SCH (07:03)
[2019-01-13] MEDS: INSULIN ASPART (NovoLOG) 100 UNIT/ML VIAL SQ SCH ×2 (07:03→12:09)
--- NOTE | 2019-01-13 07:26 | P.CNPUL ---
History of Present Illness Consult date: 01/12/19 Reason for consult: dyspnea, COPD, hypoxemia Chief complaint: Shortness of breath History of present illness: This is a 63-year-old morbidly obese female with a past medical history of coronary artery disease history of cardiac cath and angiogram back in October 2018 status post cardiac arrest afterwards patient was on respirator for prolonged period time successfully weaned and extubated postextubation. Face was signif icant for ongoing chronic aphonia and shortness of breath on exertion gradually in. Of last 3 months she is skating her voice back is somewhat raspy but she gets short of breath with exertion and activity that however has improved as well patient sees Dr. Freeman Andersen this seems like patient has a laryngoscopy performed results are not available but it appears that conclusion was not a paralyzed vocal cord, patient admitted this time with increased shortness of breath of few day duration went to primary medical provider advised to be admitted to hospital as she was having very poor air entry her respiratory status improved significantly she still have inspiratory fine stridor I have listened to her when sleeping snoring was very predominant present during conversation at inhalation face fine stridor appears to be present, she denies any sputum production denies any cough denies any chest pain labs reviewed medications reviewed Review of Systems All systems: negative Past Medical History Past Medical History: Coronary Artery Disease (CAD), CVA/TIA, Diabetes Mellitus, Hyperlipidemia, Hypertension, Myocardial Infarction ([place]) Additional Past Medical History / Comment(s): Diabetic peripheral neuropathyongoing, cardiac arrest, back pain Last Myocardial Infarction Date:: unknown History of Any Multi-Drug Resistant Organisms: MRSA Date of last positivie culture/infection: 04/14/2015 MDRO Source:: head Past Surgical History: Heart Catheterization With Stent, Tubal Ligation Additional Past Surgical History / Comment(s): bilat cataraTS Past Anesthesia/Blood Transfusion Reactions: No Reported Reaction Date of Last Stent Placement:: 10/02/18 Past Psychological History: No Psychological Hx Reported Smoking Status: Former smoker Past Alcohol Use History: None Reported Additional Past Alcohol Use History / Comment(s): QUIT SMOKING 2004 Past Drug Use History: None Reported - Past Family History Mother Family Medical History: Dementia, Diabetes Mellitus Father Family Medical History: Diabetes Mellitus, Deep Vein Thrombosis (DVT) Medications and Allergies Home Medications Medication Instructions Recorded Confirmed Type Amitriptyline HCl [Elavil] 25 mg PO HS #5 tab 10/16/18 01/10/19 Rx Aspirin 81 mg PO DAILY chew 10/16/18 01/10/19 Rx Lisinopril [Zestril] 5 mg PO DAILY tab 10/16/18 01/10/19 Rx Prasugrel [Effient] 10 mg PO DAILY tab 10/16/18 01/10/19 Rx Furosemide [Lasix] 40 mg PO DAILY 01/10/19 01/10/19 History Gabapentin 800 mg PO QID 01/10/19 01/10/19 History Hydrochlorothiazide [Hydrodiuril] 25 mg PO DAILY 01/10/19 01/10/19 History INSULIN ASPART (NovoLOG) [NovoLOG See Protocol SQ ACHS 01/10/19 01/10/19 History (formulary)] Insulin Degludec [Tresiba] 24 units SQ HS 01/10/19 01/10/19 History Magnesium Oxide 400 mg PO BID 01/10/19 01/10/19 History Allergies Allergy/AdvReac Type Severity Reaction Status Date / Time Cvcyvea-Fep-Tjr Reductase AdvReac muscle Verified 01/10/19 17:44 Inhibitor pain/breakdown Physical Exam Vitals: Vital Signs Temp Pulse Pulse Resp BP BP Pulse Ox 01/12/19 20:38 100 01/12/19 20:27 100 01/12/19 20:00 97 F L 99 22 155/88 95 01/12/19 16:11 100 01/12/19 15:57 100 01/12/19 15:45 101 H 18 169/88 97 01/12/19 12:05 99 01/12/19 11:52 104 H 01/12/19 11:05 98.3 F 99 18 147/51 95 01/12/19 08:46 104 H 01/12/19 08:35 112 H 01/12/19 08:10 98.0 F 111 H 18 150/70 98 01/12/19 03:47 102 H 18 138/66 96 Intake and Output 01/12/19 01/12/19 01/13/19 14:59 22:59 06:59 Intake Total 631.108 852.232 Balance 631.108 852.232 Intake: Intake, IV Titration 31.108 12.232 Amount Insulin Regular 100 unit 31.108 12.232 In Sodium Chloride 0.9% 100 ml @ Titrate IV .Q0M [facility] Rx#:[id number] Oral 600 840 Other: Voiding Method Toilet # Voids 1 1 - Constitutional General appearance: disheveled, morbidly obese, no acute distress - EENT Eyes: EOMI, PERRLA, normal appearance ENT: normal oropharynx Ears: bilateral: normal - Neck Neck: normal ROM Carotids: bilateral: upstroke normal, bruit absent Thyroid: bilateral: normal size - Respiratory Respiratory: bilateral: diminished, prolonged inspiration, negative: CTA, dullness, rales, rhonchi, wheezing, prolonged expiration - Cardiovascular Rhythm: regular Heart sounds: normal: S1, S2 - Gastrointestinal General gastrointestinal: normal bowel sounds - Integumentary Integumentary: normal - Neurologic Neurologic: CNII-XII intact - Musculoskeletal Musculoskeletal: gait normal, generalized weakness, strength equal bilaterally - Psychiatric Psychiatric: A&O x's 3, appropriate affect, intact judgment & insight Results - Laboratory Findings CBC and BMP: 01/10/19 12:45 01/12/19 05:25 PT/INR, D-dimer PT 9.6 sec (9.0-12.0) 01/10/19 12:45 INR 0.9 (<1.2) 01/10/19 12:45 Abnormal lab findings: Abnormal Labs 01/10/19 01/10/19 01/10/19 12:45 12:45 12:45 APTT 21.9 L Sodium Chloride 93 L Carbon Dioxide 32 H BUN 37 H Creatinine 1.66 H Glucose 193 H POC Glucose (mg/dL) Hemoglobin A1c 7.8 H AST 40 H Alkaline Phosphatase 152 H Troponin I Total Protein 8.7 H LDL Cholesterol, Calc 01/10/19 01/10/19 01/10/19 18:47 21:26 21:28 APTT Sodium Chloride Carbon Dioxide BUN Creatinine Glucose POC Glucose (mg/dL) 489 H 528 H Hemoglobin A1c AST Alkaline Phosphatase Troponin I 0.037 H* Total Protein LDL Cholesterol, Calc 01/11/19 01/11/19 01/11/19 00:40 05:57 06:07 APTT Sodium 136 L Chloride 94 L Carbon Dioxide 31 H BUN 51 H Creatinine 1.70 H Glucose 299 H POC Glucose (mg/dL) 435 H 302 H Hemoglobin A1c AST Alkaline Phosphatase Troponin I Total Protein LDL Cholesterol, Calc 113 H 01/11/19 01/11/19 01/11/19 11:54 13:06 14:07 APTT Sodium Chloride Carbon Dioxide BUN Creatinine Glucose POC Glucose (mg/dL) 456 H 434 H 339 H Hemoglobin A1c AST Alkaline Phosphatase Troponin I Total Protein LDL Cholesterol, Calc 01/11/19 01/11/19 01/11/19 14:31 15:04 16:59 APTT Sodium Chloride Carbon Dioxide BUN Creatinine Glucose POC Glucose (mg/dL) 290 H 164 H 62 L Hemoglobin A1c AST Alkaline Phosphatase Troponin I Total Protein LDL Cholesterol, Calc 01/11/19 01/11/19 01/11/19 17:16 18:03 18:31 APTT Sodium Chloride Carbon Dioxide BUN Creatinine Glucose POC Glucose (mg/dL) 63 L 193 H 193 H Hemoglobin A1c AST Alkaline Phosphatase Troponin I Total Protein LDL Cholesterol, Calc 01/11/19 01/11/19 01/12/19 20:33 22:36 00:34 APTT Sodium Chloride Carbon Dioxide BUN Creatinine Glucose POC Glucose (mg/dL) 267 H 288 H 170 H Hemoglobin A1c AST Alkaline Phosphatase Troponin I Total Protein LDL Cholesterol, Calc 01/12/19 01/12/19 01/12/19 02:38 04:33 05:25 APTT Sodium Chloride Carbon Dioxide BUN 59 H Creatinine 1.65 H Glucose 214 H POC Glucose (mg/dL) 206 H 232 H Hemoglobin A1c AST Alkaline Phosphatase Troponin I Total Protein LDL Cholesterol, Calc 01/12/19 01/12/19 01/12/19 06:33 08:34 10:32 APTT Sodium Chloride Carbon Dioxide BUN Creatinine Glucose POC Glucose (mg/dL) 219 H 265 H 260 H Hemoglobin A1c AST Alkaline Phosphatase Troponin I Total Protein LDL Cholesterol, Calc 01/12/19 01/12/19 01/12/19 12:35 14:33 16:41 APTT Sodium Chloride Carbon Dioxide BUN Creatinine Glucose POC Glucose (mg/dL) 203 H 272 H 231 H Hemoglobin A1c AST Alkaline Phosphatase Troponin I Total Protein LDL Cholesterol, Calc 01/12/19 01/12/19 01/12/19 18:30 20:25 22:27 APTT Sodium Chloride Carbon Dioxide BUN Creatinine Glucose POC Glucose (mg/dL) 218 H 173 H 256 H Hemoglobin A1c AST Alkaline Phosphatase Troponin I Total Protein LDL Cholesterol, Calc - Diagnostic Findings Chest x-ray: report reviewed, image reviewed (Chronic parenchymal changes are present without any acute process) Assessment and Plan Assessment: Tracheal stenosis possible Obstructive sleep apnea Coronary artery disease status stent and LAD Status post cardiac arrest Hypertension and hypertensive cardiovascular disease Type 2 diabetes mellitus Peripheral neuropathy Morbid obesity Plan: Continue bronchodilators and steroids as patient seemed to be responding well with that Will review old records and discussed the patient about PFT, PSG, bronchoscopy Further recommendations pending plan of care as per clinical response of the patient
--- NOTE | 2019-01-13 07:33 | P.PN ---
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, obstructive sleep apnea, coronary artery disease history of stent and LAD, advanced diabetes mellitus with complication and that her for neuropathy, status post cardiac arrest prolonged intubation, hypertension hypertensive cardiovascular disease, type 2 diabetes mellitus, morbid obesity 01/13/2019, patient seen eval and evaluated and examined during the rounds patient have is still slight inspiratory sound/stridor which is improved compared to yesterday patient feels ready to go home she feels her voice is gradually getting better in the last several month, she is very reluctant about conscious sedation and procedure of bronchoscopy due to prior history of cardiac arrest when she was getting cardiac cath and angiogram, however agree able for pulmonary function testing as outpatient and polysomnogram as outpatient, will do a computed tomography scan of the chest which will give us some idea about trachea and also chronic parenchymal scarring which could be due to developing pulmonary fibrosis, patient can be discharged home with follow-up in outpatient basis after the computed tomography scan of the chest prescription of Medrol Dosepak has been given This is a 63-year-old morbidly obese female with a past medical history of coronary artery disease history of cardiac cath and angiogram back in October 2018 status post cardiac arrest afterwards patient was on respirator for prolonged period time successfully weaned and extubated postextubation. Face was significant for ongoing chronic aphonia and shortness of breath on exertion gradually in. Of last 3 months she is skating her voice back is somewhat raspy but she gets short of breath with exertion and activity that however has improved as well patient sees Dr. Freeman Andersen this seems like patient has a laryngoscopy performed results are not available but it appears that conclusion was not a paralyzed vocal cord, patient admitted this time with increased shortness of breath of few day duration went to primary medical provider advised to be admitted to hospital as she was having very poor air entry her respiratory status improved significantly she still have inspiratory fine stridor I have listened to her when sleeping snoring was very predominant present during conversation at inhalation face fine stridor appears to be present, she denies a ny sputum production denies any cough denies any chest pain labs reviewed medications reviewed Objective - Vital Signs Vital signs: Vital Signs Temp 97.7 F 01/13/19 04:00 Pulse 99 01/13/19 04:00 Resp 19 01/13/19 04:00 BP 168/78 01/13/19 04:00 Pulse Ox 98 01/13/19 04:00 Intake & Output 01/12/19 01/13/19 01/13/19 18:59 06:59 18:59 Intake Total 1474.690 40.417 Balance 1474.690 40.417 Weight 80.2 kg Intake: Intake, IV Titration 34.690 40.417 Amount Insulin Regular 100 unit 34.690 40.417 In Sodium Chloride 0.9% 100 ml @ Titrate IV .Q0M [facility] Rx#:[id number] Oral 1440 Other: Voiding Method Toilet # Voids 1 2 - Exam Constitutional General appearance: disheveled, morbidly obese, no acute distress - EENT Eyes: EOMI, PERRLA, normal appearance ENT: normal oropharynx Ears: bilateral: normal - Neck Neck: normal ROM Carotids: bilateral: upstroke normal, bruit absent Thyroid: bilateral: normal size - Respiratory Respiratory: bilateral: diminished, prolonged inspiration, negative: CTA, dullness, rales, rhonchi, wheezing, prolonged expiration - Cardiovascular Rhythm: regular Heart sounds: normal: S1, S2 - Gastrointestinal General gastrointestinal: normal bowel sounds - Integumentary Integumentary: normal - Neurologic Neurologic: CNII-XII intact - Musculoskeletal Musculoskeletal: gait normal, generalized weakness, strength equal bilaterally - Psychiatric Psychiatric: A&O x's 3, appropriate affect, intact judgment & insight - Labs CBC & Chem 7: 01/10/19 12:45 01/12/19 05:25 Labs: Abnormal Lab Results - Last 24 Hours (Table) 01/12/19 01/12/19 01/12/19 Range/Units 08:34 10:32 12:35 POC Glucose (mg/dL) 265 H 260 H 203 H (75-99) mg/dL 01/12/19 01/12/19 01/12/19 Range/Units 14:33 16:41 18:30 POC Glucose (mg/dL) 272 H 231 H 218 H (75-99) mg/dL 01/12/19 01/12/19 01/13/19 Range/Units 20:25 22:27 00:23 POC Glucose (mg/dL) 173 H 256 H 264 H (75-99) mg/dL 01/13/19 01/13/19 01/13/19 Range/Units 02:25 04:40 06:37 POC Glucose (mg/dL) 209 H 174 H 192 H (75-99) mg/dL Assessment and Plan Assessment: Tracheal stenosis possible Obstructive sleep apnea Coronary artery disease status stent and LAD Status post cardiac arrest Hypertension and hypertensive cardiovascular disease Type 2 diabetes mellitus Peripheral neuropathy Morbid obesity Plan: Continue bronchodilators and steroids as patient seemed to be responding well with that, can be discharged home on Medrol Dosepak Will review old records and obtain her records from Dr. Nelson's office Polysomnogram as outpatient Pulmonary function testing as outpatient Patient can go home after his computed tomography scan of the chest Review old medical records Further evaluation and follow-up and recommendation outpatient basis Further recommendations pending plan of care as per clinical response of the patient Time with Patient: Greater than 30
[2019-01-13] MEDS: IPRATROPIUM-ALBUTEROL 3 ML NEB INHALATION PRN ×2 (08:04→11:42)
[2019-01-13 08:27] LABS: Glucose,Whole Blood 270 mg/dL (75-99)
[2019-01-13] MEDS: LISINOPRIL 5 MG TAB PO SCH (09:44)
[2019-01-13] MEDS: HYDROCHLOROTHIAZIDE 25 MG TAB PO SCH (09:44)
[2019-01-13] MEDS: MAGNESIUM OXIDE 400 MG TAB PO SCH (09:44)
[2019-01-13] MEDS: PRASUGREL 10 MG TAB PO SCH (09:44)
[2019-01-13] MEDS: FUROSEMIDE 40 MG TAB PO SCH (09:44)
[2019-01-13] MEDS: GABAPENTIN 400 MG CAP PO SCH ×2 (09:44→12:09)
[2019-01-13] MEDS: ASPIRIN 81 MG PO SCH (09:44)
[2019-01-13] MEDS: ENOXAPARIN 30 MG/0.3 ML SYRINGE SQ SCH (09:44)
--- NOTE | 2019-01-13 09:53 | CT ---
EXAMINATION TYPE: CT chest wo con DATE OF EXAM: 01/13/2019 COMPARISON: 11/03/2017 HISTORY: Tracheal stenosis and pulmonary fibrosis CT DLP: 379.7 mGycm. Automated Exposure Control for Dose Reduction was Utilized. TECHNIQUE: CT scan of the thorax is performed without IV contrast. FINDINGS: LUNGS: A few linear areas of scarring/atelectasis are seen in the right middle lobe and lung bases. I n the medial and inferior right lower lobe there is a nodular area along the scarring/atelectasis marino suring 0.6 cm and best seen on image 35 of the axial images, but stable when compared to 11/03/2017. Ot herwise the lungs are grossly clear, there is no concerning parenchymal mass identified. There is no pleural effusion or pneumothorax seen. The tracheobronchial tree is patent. MEDIASTINUM: Lack of IV contrast is noted to limit evaluation for mediastinal and especially hilar ad enopathy. There are no definitive greater than 1 cm hilar or mediastinal lymph nodes. Mild cardiomega ly. No pericardial effusion is seen. OTHER: There is sclerotic and lytic process with surrounding callus within the mid sternum which is b est seen on the sagittal imaging and appears new when compared to 11/03/2017. There are also a few scat tered anterolateral right and left callus process in the ribs. These findings are seen on the right a t the second rib and on the left at the second, third, fourth, fifth, sixth and seventh ribs. Choleli thiasis in the dependent portion of the gallbladder lumen. Calcified atherosclerotic changes of the s plenic artery. IMPRESSION: No evidence of tracheal stenosis or pulmonary fibrosis. Right lower lobe pulmonary nodule measuring 0.6 cm appearing stable when compared to 11/03/2017. Repeat CT of the chest in 18-24 months is recommended to ensure stability. New midsternal sclerotic and lytic lesion and bilateral callus process of the ribs of uncertain etiol ogy. Findings may be on the basis of a healing sternal fracture, but neoplastic process or metastatic lesion is not excluded. Correlation with patient history is recommended.
[2019-01-13] MEDS ORDERED: predniSONE 20 MG TAB PO SCH (10:00)
[2019-01-13] MEDS ORDERED: INSULIN DETEMIR (LEVEMIR) 100 UNIT/ML SYR SQ SCH (10:15)
[2019-01-13 10:21] VITALS: RESP 18; TEMP 98.1
[2019-01-13 10:27] LABS: Glucose,Whole Blood 284 mg/dL (75-99)
[2019-01-13 11:24] LABS: Glucose,Whole Blood 252 mg/dL (75-99)
[2019-01-13 11:53] VITALS: BP 167/83
[2019-01-13 11:57] VITALS: PULSE 93
--- NOTE | 2019-01-13 23:48 | DS ---
DISCHARGE SUMMARY FINAL DIAGNOSES: 1. Chronic obstructive pulmonary disease exacerbation acute purulent tracheobronchitis. 2. No evidence of tracheal stenosis in the CT scan. 3. History of cardiac arrest following stenting to LAD. 4. Coronary artery disease LAD. 5. Diabetes mellitus type 2. 6. Hypertension. 7. Hyperlipidemia. 8. Diabetic peripheral neuropathy. 9. Left vocal cord paralysis with intubation. 10.Obesity body mass of 35. DISCHARGE DISPOSITION: Patient will be discharged in stable condition with guarded prognosis. Total time taken 35 minutes. The patient is keen on going home. Pulmonary cleared the patient for discharge. HISTORY OF PRESENT ILLNESS: This 63-year-old woman with a past medical history of multiple medical problems as mentioned above, being followed by Dr. Finley in the outpatient setting was admitted with COPD, acute exacerbation, and the patient was treated symptomatically. Patient improved significantly. The CT scan was also reviewed. The patient had a complex hospitalization during the previous admission. Otherwise, currently the patient improved significantly. On exam, vitals are stable. Cardiovascular: S1, S2. RESPIRATORY: A few scattered rhonchi. DISCHARGE ADVICE AND MEDICATIONS: 1. Discharge diet is cardiac diet. 2. Activity limited until followup. 3. Follow up with Dr. Finley in 2-3 days. 4[address] Follow up Dr. Khanna in 1 week. DISCHARGE MEDICATIONS: 1. Gabapentin 800 mg q.i.d. 2. HydroDIURIL 25 mg p.o. daily. 3. Lasix 40 mg b.i.d. 4. Magnesium oxide 400 mg b.i.d. 5. NovoLog a.c. and q.h.s. scale. 6. Tresiba 25 units subcu q.h.s. 7. Aspirin 81 mg p.o. daily. 8. Ceftin 500 mg b.i.d. for 3 more days. 9. DuoNeb q.i.d. and p.r.n. 10.Effient 10 mg p.o. daily. 11.Elavil 25 mg q.h.s. 12.Prednisone taper 40 mg daily for 3 days, 30 for 3 days, 20 for 3 days and then 10 for 3 days. 13.Symbicort 160/4.5 two puffs b.i.d. 14.Zestril 5 mg p.o. daily. Followup labs with Dr. Noah Tushar. Follow up with Cardiology as recommended. Once again, patient being discharged in a stable condition with guarded prognosis. MMODL / IJN: [id number] /
== END 2019-01-13 15:50 | disposition home or self-care (01) ==
LOC: EC 12:15 → 3SCARD 14:21
PROVIDERS: ADMIT Hospitalist; ATTEND Hospitalist
DX: J44.1 Chronic obstructive pulmonary disease with (acute) exacerbation (principal); J20.9 Acute bronchitis, unspecified; J44.0 Chronic obstructive pulmonary disease with (acute) lower respiratory infection; I25.10 Atherosclerotic heart disease of native coronary artery without angina pectoris; E78.5 Hyperlipidemia, unspecified; E11.42 Type 2 diabetes mellitus with diabetic polyneuropathy; E11.65 Type 2 diabetes mellitus with hyperglycemia; T38.0X5A Adverse effect of glucocorticoids and synthetic analogues, initial encounter; J38.01 Paralysis of vocal cords and larynx, unilateral; I11.0 Hypertensive heart disease with heart failure; I50.9 Heart failure, unspecified; R77.8 Other specified abnormalities of plasma proteins; M54.9 Dorsalgia, unspecified; R13.10 Dysphagia, unspecified; E66.01 Morbid (severe) obesity due to excess calories; Z68.35 Body mass index [BMI] 35.0-35.9, adult; R09.02 Hypoxemia; G47.33 Obstructive sleep apnea (adult) (pediatric); R91.1 Solitary pulmonary nodule; M89.9 Disorder of bone, unspecified; Z79.82 Long term (current) use of aspirin; Z79.4 Long term (current) use of insulin; Z79.02 Long term (current) use of antithrombotics/antiplatelets; Z79.899 Other long term (current) drug therapy; Z88.8 Allergy status to other drugs, medicaments and biological substances; Z86.14 Personal history of Methicillin resistant Staphylococcus aureus infection; Z86.73 Personal history of transient ischemic attack (TIA), and cerebral infarction without residual deficits; I25.2 Old myocardial infarction; Z95.5 Presence of coronary angioplasty implant and graft; Z86.711 Personal history of pulmonary embolism; Z87.448 Personal history of other diseases of urinary system; Z86.74 Personal history of sudden cardiac arrest; Z98.51 Tubal ligation status; Z98.42 Cataract extraction status, left eye; Z98.41 Cataract extraction status, right eye; Z87.891 Personal history of nicotine dependence; Z83.3 Family history of diabetes mellitus; Z83.2 Family history of diseases of the blood and blood-forming organs and certain disorders involving the immune mechanism; Z81.8 Family history of other mental and behavioral disorders
CPT/HCPCS: 96376 ×2; 96361 ×3; 96372 ×3; 96375; 96374; 99285; 36415; 94640 ×8; 93005; 83880; 80061; 80053; 80048 ×2; 83735; 84484 ×2; 85025; 85610; 85730; 83036; 71046; 71250; G0378 ×4; J1100; J2920 ×2; J1650 ×3; J7512

== ENCOUNTER 2019-03-22 18:33 | Inpatient (IN) | payer BC ==
[2019-03-22] MEDS ORDERED: DEXAMETHASONE SOD PHOSPHATE 10 MG/ML 1 ML VIAL IV STA (19:14)
[2019-03-22] MEDS ORDERED: RACEPINEPHRINE 2.25% NEB 0.5 ML NEBU INHALATION STA (19:14)
--- NOTE | 2019-03-22 19:25 | ED ---
General Adult HPI - General Chief complaint: Shortness of Breath Stated complaint: MISSAEL Time Seen by Provider: 03/22/19 19:09 Source: patient Mode of arrival: ambulatory - History of Present Illness Initial comments: Dictation was produced using [employer] dictation software. please excuse any grammatical, word or spelling errors. Chief Complaint: 63-year-old female with past medical history of coronary artery disease, cardiac arrest presents with shortness of breath. History of Present Illness: 63-year-old female patient states she's been having worsening shortness of breath for the last 48 hours. Patient states that in October she had had cardiac arrest and needed to be intubated during a cath. Patient survived that incident. Over the last 48 hours she's been feeling like her throat has been feeling a little bit tight. Is causing her to be short of breath. Patient has any history of COPD or asthma. Patient has a chest pain. She has been having some mild cough recently. The ROS documented in this emergency department record has been reviewed and confirmed by me. Those systems with pertinent positive or negative responses have been documented in the HPI. All other systems are other negative and/or noncontributory. PHYSICAL EXAM: General Impression: Alert and oriented x3, mildly stridulous HEENT: Normocephalic atraumatic, extra-ocular movements intact, pupils equal and reactive to light bilaterally, mucous membranes moist. Cardiovascular: Heart regular rate and rhythm, S1&S2 audible, no murmurs, rubs or gallops Chest: Lungs clear to auscultation bilaterally, no rhonchi, no wheeze, no rales Abdomen: Bowel sounds present, abdomen soft, non-tender, non-distended, no organomegaly Musculoskeletal: Pulses present and equal in all extremities, no peripheral edema Motor: no focal deficits noted Neurological: CN II-XII grossly intact, no focal motor or sensory deficits noted Skin: Intact with no visualized rashes Psych: Normal affect and mood ED course: 63 old female presents with chief complaint shortness of breath. On arrival shows heart rate of 119, respiratory 20, rest of vital signs within acceptable limits. Patient had a mild inspiratory and expiratory stridor. She is well-appearing at bedside. There is concern for upper airway disease. Patient given epinephrine and Decadron.Return evaluation obtained. CBC, coag panel, group A strep negative. Pending throat cultures. Chest x-ray shows no infiltrate in the left lung base concerning for pneumonia. Soft tissue X-ray shows no acute findings. Patient reevaluated after admission patient with Decadron and Vaponefrin with much improved symptoms. Discussed patient case with Dr. Nelson ENT on-call he is agreeable for patient be discharged with him on consultation. He request Decadron tapering dose every 6 hours. No cervical separation be placed on humidified oxygen. He also requested patient be treated as if we are treating asthma with [id number] breathing treatments. ENT is not feel that patient needs to be admitted to the intensive care unit. Patient will be admitted to telemetry. Discussed case with Dr. Blunt was agreeable with admission. - Related Data Home Medications Medication Instructions Recorded Confirmed Furosemide [Lasix] 40 mg PO DAILY 01/10/19 03/22/19 Gabapentin 800 mg PO QID 01/10/19 03/22/19 Hydrochlorothiazide [Hydrodiuril] 25 mg PO DAILY 01/10/19 03/22/19 INSULIN ASPART (NovoLOG) [NovoLOG See Protocol SQ ACHS 01/10/19 03/22/19 (formulary)] Insulin Degludec [Tresiba] 24 units SQ HS 01/10/19 03/22/19 Magnesium Oxide 400 mg PO BID 01/10/19 03/22/19 Budesonide/Formoterol Fumarate 2 puff INHALATION RT-BID 03/22/19 03/22/19 [Symbicort 160-4.5 Mcg Inhaler] Ezetimibe [Zetia] 10 mg PO DAILY 03/22/19 03/22/19 Previous Rx's Medication Instructions Recorded Amitriptyline HCl [Elavil] 25 mg PO HS #5 tab 10/16/18 Aspirin 81 mg PO DAILY chew 10/16/18 Lisinopril [Zestril] 5 mg PO DAILY tab 10/16/18 Prasugrel [Effient] 10 mg PO DAILY tab 10/16/18 Ipratropium-Albuterol Nebulize 3 ml INHALATION RT-QID PRN #120 01/13/19 [Duoneb 0.5 mg-3 mg/3 ml Soln] ampul.neb Allergies Allergy/AdvReac Type Severity Reaction Status Date / Time Xwrwxwe-Oju-Vtz Reductase AdvReac muscle Verified 03/22/19 18:52 Inhibitor pain/breakdown Review of Systems ROS Statement: Those systems with pertinent positive or pertinent negative responses have been documented in the HPI. ROS Other: All systems not noted in ROS Statement are negative. Past Medical History Past Medical History: Coronary Artery Disease (CAD), CVA/TIA, Diabetes Mellitus, Hyperlipidemia, Hypertension, Myocardial Infarction (SC) Additional Past Medical History / Comment(s): Diabetic peripheral neuropathyongoing, cardiac arrest, back pain Last Myocardial Infarction Date:: unknown History of Any Multi-Drug Resistant Organisms: MRSA Date of last positivie culture/infection: 04/14/2015 MDRO Source:: head Past Surgical History: Heart Catheterization With Stent, Tubal Ligation Additional Past Surgical History / Comment(s): bilat cataraTS Past Anesthesia/Blood Transfusion Reactions: No Reported Reaction Date of Last Stent Placement:: 10/02/18 Past Psychological History: No Psychological Hx Reported Smoking Status: Former smoker Past Alcohol Use History: None Reported Past Drug Use History: None Reported - Past Family History Mother Family Medical History: Dementia, Diabetes Mellitus Father Family Medical History: Diabetes Mellitus, Deep Vein Thrombosis (DVT) Course Vital Signs 03/22/19 03/22/19 03/22/19 18:36 19:26 19:33 Temperature 97.6 F Pulse Rate 119 H 100 104 H Respiratory 28 H Rate Blood Pressure 124/72 O2 Sat by Pulse 99 Oximetry 03/22/19 03/22/19 19:39 20:48 Temperature 97.7 F Pulse Rate 101 H 98 Respiratory 22 18 Rate Blood Pressure 108/80 134/53 O2 Sat by Pulse 100 100 Oximetry Medical Decision Making - Lab Data Result diagrams: 03/22/19 19:20 03/22/19 19:20 Lab Results 03/22/19 03/22/19 03/22/19 Range/Units 19:20 19:20 19:20 WBC 7.8 (3.8-10.6) k/uL RBC 4.03 (3.80-5.40) m/uL Hgb 11.7 (11.4-16.0) gm/dL Hct 34.8 (34.0-46.0) % MCV 86.2 (80.0-100.0) fL MCH 29.1 (25.0-35.0) pg MCHC 33.8 (31.0-37.0) g/dL RDW 13.9 (11.5-15.5) % Plt Count 269 (150-450) k/uL Neutrophils % 80 % Lymphocytes % 13 % Monocytes % 4 % Eosinophils % 1 % Basophils % 0 % Neutrophils # 6.2 (1.3-7.7) k/uL Lymphocytes # 1.0 (1.0-4.8) k/uL Monocytes # 0.3 (0-1.0) k/uL Eosinophils # 0.1 (0-0.7) k/uL Basophils # 0.0 (0-0.2) k/uL PT 9.6 (9.0-12.0) sec INR 0.9 (<1.2) APTT 22.5 (22.0-30.0) sec Sodium 138 (137-145) mmol/L Potassium 4.3 (3.5-5.1) mmol/L Chloride 96 L (98-107) mmol/L Carbon Dioxide 31 H (22-30) mmol/L Anion Gap 11 mmol/L BUN 52 H (7-17) mg/dL Creatinine 1.67 H (0.52-1.04) mg/dL Est GFR (CKD-EPI)AfAm 37 (>60 ml/min/1.73 sqM) Est GFR (CKD-EPI)NonAf 32 (>60 ml/min/1.73 sqM) Glucose 219 H (74-99) mg/dL Calcium 9.9 (8.4-10.2) mg/dL Group A Strep Rapid (Negative) 03/22/19 Range/Units 19:24 WBC (3.8-10.6) k/uL RBC (3.80-5.40) m/uL Hgb (11.4-16.0) gm/dL Hct (34.0-46.0) % MCV (80.0-100.0) fL MCH (25.0-35.0) pg MCHC (31.0-37.0) g/dL RDW (11.5-15.5) % Plt Count (150-450) k/uL Neutrophils % % Lymphocytes % % Monocytes % % Eosinophils % % Basophils % % Neutrophils # (1.3-7.7) k/uL Lymphocytes # (1.0-4.8) k/uL Monocytes # (0-1.0) k/uL Eosinophils # (0-0.7) k/uL Basophils # (0-0.2) k/uL PT (9.0-12.0) sec INR (<1.2) APTT (22.0-30.0) sec Sodium (137-145) mmol/L Potassium (3.5-5.1) mmol/L Chloride (98-107) mmol/L Carbon Dioxide (22-30) mmol/L Anion Gap mmol/L BUN (7-17) mg/dL Creatinine (0.52-1.04) mg/dL Est GFR (CKD-EPI)AfAm (>60 ml/min/1.73 sqM) Est GFR (CKD-EPI)NonAf (>60 ml/min/1.73 sqM) Glucose (74-99) mg/dL Calcium (8.4-10.2) mg/dL Group A Strep Rapid Negative (Negative) Disposition Clinical Impression: Dyspnea Disposition: ADMITTED IP TO THIS [facility] Condition: Fair Referrals: Noah Finley DO [Primary Care Provider] - 1-2 days Decision Time: 21:30
[2019-03-22 19:48] LABS: Basophils % (A) 0 %; Eosinophils # (A) 0.1 k/uL (0-0.7); Eosinophils % (A) 1 %; HCT 34.8 % (34.0-46.0); HGB 11.7 gm/dL (11.4-16.0); Lymphocytes % (A) 13 %; MCH 29.1 pg (25.0-35.0); MCHC 33.8 g/dL (31.0-37.0); MCV 86.2 fL (80.0-100.0); Mean Platelet Volume 6.4; Monocytes # (A) 0.3 k/uL (0-1.0); Monocytes % (A) 4 %; Neutrophils # (A) 6.2 k/uL (1.3-7.7); Neutrophils % (A) 80 %; Platelet Count 269 k/uL (150-450); RBC 4.03 m/uL (3.80-5.40); RDW 13.9 % (11.5-15.5); WBC 7.8 k/uL (3.8-10.6)
[2019-03-22 20:13] LABS: INR 0.9 (<1.2); Partial Thromboplastin Time 22.5 sec (22.0-30.0); Prothrombin Time 9.6 sec (9.0-12.0)
--- NOTE | 2019-03-22 20:29 | XR ---
EXAMINATION TYPE: XR chest 2V DATE OF EXAM: 03/22/2019 COMPARISON: 01/10/2019 HISTORY: Short of breath TECHNIQUE: Frontal and lateral views of the chest are obtained. FINDINGS: There is a minimal infiltrate at the lateral left lung base. The other lung benítez are arsalan ar. Heart and mediastinum are normal. There is minor spurring in the thoracic spine. There are chest leads. IMPRESSION: There is a new minimal infiltrate or pleural reaction at the left lung base compared to old exam. Normal heart.
--- NOTE | 2019-03-22 20:31 | XR ---
EXAMINATION TYPE: XR soft tissue neck DATE OF EXAM: 03/22/2019 COMPARISON: NONE HISTORY: Short of breath TECHNIQUE: 2 views FINDINGS: Epiglottis appears normal. Subglottic trachea appears normal. There is no evidence of a cer vical foreign body. Prevertebral soft tissues appear normal. Tonsils and adenoids appear normal. IMPRESSION: Negative cervical soft tissue exam. Normal epiglottis. No change compared to cervical spi ne exam 02/11/2018.
[2019-03-22] MEDS ORDERED: AMPICILLIN-SULBACTAM 3 GM in SODIUM CHLORIDE 0.9% 100 ML IVPB STA (21:00)
[2019-03-22 21:03] LABS: Calcium 9.9 mg/dL (8.4-10.2); Potassium 4.3 mmol/L (3.5-5.1)
[2019-03-22] MEDS ORDERED: NALOXONE 0.4 MG/ML 1 ML VIAL IV PRN (21:29)
[2019-03-22] MEDS: IPRATROPIUM-ALBUTEROL 3 ML NEB INHALATION SCH ×2 (21:56→23:27)
[2019-03-23 01:20] LABS: Glucose,Whole Blood >600 mg/dL (75-99)
[2019-03-23] MEDS ORDERED: INSULIN REGULAR BOLUS (FROM DRIP BAG) IV PRN (01:40)
[2019-03-23] MEDS: GABAPENTIN 400 MG CAP PO SCH ×5 (01:44→21:08)
[2019-03-23] MEDS: DEXAMETHASONE SOD PHOSPHATE 10 MG/ML 1 ML VIAL IV SCH ×2 (01:44→06:13)
[2019-03-23 02:16] LABS: Basophils % (A) 0 %; Eosinophils % (A) 0 %; HCT 38.2 % (34.0-46.0); HGB 11.4 gm/dL (11.4-16.0); Hypochromasia Slight; Lymphocytes # (A) 0.3 k/uL (1.0-4.8); Lymphocytes % (A) 4 %; MCHC 29.9 g/dL (31.0-37.0); MCV 90.3 fL (80.0-100.0); Mean Platelet Volume 6.9; Monocytes # (A) 0.1 k/uL (0-1.0); Monocytes % (A) 1 %; Neutrophils # (A) 6.5 k/uL (1.3-7.7); Neutrophils % (A) 94 %; Platelet Count 275 k/uL (150-450); RBC 4.23 m/uL (3.80-5.40); RDW 14.2 % (11.5-15.5)
[2019-03-23 02:28] LABS: African American GFR (CKD) 38 (>60 ml/min/1.73 sqM); Anion Gap 17 mmol/L; Blood Urea Nitrogen 55 mg/dL (7-17); Calcium 9.5 mg/dL (8.4-10.2); Carbon Dioxide 26 mmol/L (22-30); Chloride 92 mmol/L (98-107); Magnesium 2.3 mg/dL (1.6-2.3); Potassium 5.3 mmol/L (3.5-5.1); Sodium 135 mmol/L (137-145)
[2019-03-23 02:46] LABS: Glucose 674 mg/dL (74-99)
[2019-03-23] MEDS: IPRATROPIUM-ALBUTEROL 3 ML NEB INHALATION SCH ×7 (03:07→23:01)
[2019-03-23] MEDS ORDERED: INSULIN REGULAR 100 UNIT in SODIUM CHLORIDE 0.9% 100 ML IV SCH (04:00)
[2019-03-23 05:11] LABS: Glucose,Whole Blood 583 mg/dL (75-99)
[2019-03-23 06:28] LABS: Glucose,Whole Blood 452 mg/dL (75-99)
[2019-03-23 08:27] LABS: Glucose,Whole Blood 255 mg/dL (75-99)
[2019-03-23] MEDS ORDERED: DEXAMETHASONE SOD PHOSPHATE 4 MG/ML 1 ML VIAL IV SCH ×2 (08:44→21:00)
[2019-03-23] MEDS: FUROSEMIDE 40 MG TAB PO SCH (08:45)
[2019-03-23] MEDS: ASPIRIN 81 MG PO SCH (08:45)
[2019-03-23 09:26] VITALS: BMI 37.8
[2019-03-23] MEDS: PRASUGREL 10 MG TAB PO SCH (09:41)
[2019-03-23] MEDS: HYDROCHLOROTHIAZIDE 25 MG TAB PO SCH (09:41)
[2019-03-23] MEDS: EZETIMIBE 10 MG TAB PO SCH (09:41)
[2019-03-23 10:18] LABS: Glucose,Whole Blood 122 mg/dL (75-99)
[2019-03-23 11:23] LABS: Glucose,Whole Blood 196 mg/dL (75-99)
[2019-03-23] MEDS ORDERED: DEXAMETHASONE SOD PHOSPHATE 10 MG/ML 1 ML VIAL IV SCH ×2 (12:00→15:00)
[2019-03-23] MEDS ORDERED: INSULIN ASPART (NovoLOG) 100 UNIT/ML VIAL SQ SCH (12:30)
--- NOTE | 2019-03-23 16:35 | P.CNPUL ---
History of Present Illness Consult date: 03/23/19 Reason for consult: dyspnea Chief complaint: Shortness of breath and stridor History of present illness: Another admission for this 63-year-old female patient who is known to me and I have been involved in her care after a coronary intervention that led into cardiogenic shock post stenting of the LAD and the patient required insertion of Impela device and she was intubated and placed on a mechanical ventilator for mo re than 10 days requiring sedation and ultimately she was weaned off she was extubated. She has hypertension and hypertensive heart disease and shouldn't diabetes mellitus. She has a body mass index of 37.8 consistent with obesity. The patient came back to the hospital back in January 2019 complaining of increased shortness of breath and she was found to have an expiratory stridor. She was seen by Dr. Khanna. He recommended a bronchoscopy which the patient was reluctant to do due to concerns of cardiac arrest. Outpatient PFT has been done in the past and the results are not available. She did have a ENT evaluation by Dr. Nelson on outpatient basis including a direct laryngoscopy and she is not sure she was told by the vocal cords were paralyzed. The patient had a CAT scan of the chest back in January 2019 and showed no evidence of any tracheal disease. Lung parenchyma was essentially within normal limits and there was few linear areas of atelectatic changes in the right midlung in the lung bases bilaterally. The lungs were clear. No masses were identified. There was a 6 mm nodule in the lower lobe for which follow-up was recommended. Mediastinum was clear. There was cholelithiasis and the gallbladder. There were some also changes in the midsternum consistent with a healed fracture. Some mild callus formation was also seen of unknown etiology. Follow-up was recommended. Patient is coming in for a similar presentation of worsening shortness of breath and inspiratory stridor. She is currently on bronchodilators and systemic steroids patient already feeling better. No fever or chills. No synovitis sputum production. She is currently on Decadron. Her cough is weak. She produces a harsh noises in her neck upon coughing. Review of Systems Constitutional: Reports daytime sleepiness, Reports fatigue, Reports weight loss Eyes: denies blurred vision, denies bulging eye, denies decreased vision Ears: deny: decreased hearing, ear discharge, earache, tinnitus Ears, nose, mouth and throat: Reports hoarseness, Reports voice changes Breasts: absent: as per HPI, change in shape, gynecomastia, masses, nipple discharge, pain, skin changes, swelling Cardiovascular: Reports decreased exercise tolerance, Reports dyspnea on exertion, Reports shortness of breath Respiratory: Reports dyspnea, Reports snoring Gastrointestinal: Reports as per HPI, Reports constipation Menstruation: Reports as per HPI Musculoskeletal: Reports as per HPI Musculoskeletal: absent: ankle pain, ankle stiffness, ankle swelling, as per HPI, elbow pain, elbow stiffness, elbow swelling, foot pain, foot stiffness, foot swelling, hand pain, hand stiffness, hand swelling, hip pain, hip stiffness, hip swelling, knee pain, knee stiffness, knee swelling, shoulder pain, shoulder stiffness, shoulder swelling, wrist pain, wrist stiffness, wrist swelling Integumentary: Reports as per HPI Neurological: Reports as per HPI Psychiatric: Reports as per HPI Endocrine: Reports as per HPI Hematologic/Lymphatic: Reports as per HPI Past Medical History Past Medical History: Coronary Artery Disease (CAD), CVA/TIA, Diabetes Mellitus, Hyperlipidemia, Hypertension Additional Past Medical History / Comment(s): Coronary artery disease and history of cardiogenic shock following stenting of the LAD requiring intubation mechanical ventilation and cardiac support him a obesity, history of CVA, diabetes mellitus, hyperlipidemia, Last Myocardial Infarction Date:: unknown History of Any Multi-Drug Resistant Organisms: MRSA Date of last positivie culture/infection: 04/14/2015 MDRO Source:: top of head Past Surgical History: Heart Catheterization With Stent, Tubal Ligation Additional Past Surgical History / Comment(s): bilat cataract surgery Past Anesthesia/Blood Transfusion Reactions: No Reported Reaction Date of Last Stent Placement:: 10/02/18 Past Psychological History: No Psychological Hx Reported Smoking Status: Former smoker Past Alcohol Use History: None Reported Additional Past Alcohol Use History / Comment(s): QUIT SMOKING 2003 Past Drug Use History: None Reported - Past Family History Mother Family Medical History: Dementia, Diabetes Mellitus Father Family Medical History: Diabetes Mellitus, Deep Vein Thrombosis (DVT) Medications and Allergies Home Medications Medication Instructions Recorded Confirmed Type Amitriptyline HCl [Elavil] 25 mg PO HS #5 tab 10/16/18 03/22/19 Rx Aspirin 81 mg PO DAILY chew 10/16/18 03/22/19 Rx Lisinopril [Zestril] 5 mg PO DAILY tab 10/16/18 03/22/19 Rx Prasugrel [Effient] 10 mg PO DAILY tab 10/16/18 03/22/19 Rx Furosemide [Lasix] 40 mg PO DAILY 01/10/19 03/22/19 History Gabapentin 800 mg PO QID 01/10/19 03/22/19 History Hydrochlorothiazide [Hydrodiuril] 25 mg PO DAILY 01/10/19 03/22/19 History INSULIN ASPART (NovoLOG) [NovoLOG See Protocol SQ ACHS 01/10/19 03/22/19 History (formulary)] Insulin Degludec [Tresiba] 24 units SQ HS 01/10/19 03/22/19 History Magnesium Oxide 400 mg PO BID 01/10/19 03/22/19 History Ipratropium-Albuterol Nebulize 3 ml INHALATION RT-QID PRN #120 01/13/19 03/22/19 Rx [Duoneb 0.5 mg-3 mg/3 ml Soln] ampul.neb Budesonide/Formoterol Fumarate 2 puff INHALATION RT-BID 03/22/19 03/22/19 History [Symbicort 160-4.5 Mcg Inhaler] Ezetimibe [Zetia] 10 mg PO DAILY 03/22/19 03/22/19 History Allergies Allergy/AdvReac Type Severity Reaction Status Date / Time Avzsejs-Djf-Csk Reductase AdvReac muscle Verified 03/22/19 18:52 Inhibitor pain/breakdown Physical Exam Vitals: Vital Signs Temp Pulse Pulse Resp BP BP Pulse Ox 03/23/19 16:10 102 H 03/23/19 16:00 98.2 F 102 H 107 H 18 121/59 95 03/23/19 11:25 103 H 03/23/19 11:24 97.9 F 103 H 20 140/76 97 03/23/19 11:17 100 03/23/19 11:08 101 H 03/23/19 09:42 100 20 92/73 96 03/23/19 09:21 97.4 F L 107 H 22 141/97 90 L 03/23/19 08:00 97.4 F L 106 H 22 141/97 90 L 03/23/19 07:40 98 03/23/19 07:26 96 03/23/19 06:23 103 H 20 115/58 97 03/23/19 03:19 96 03/23/19 03:09 105 H 03/23/19 00:00 98.2 F 112 H 20 142/82 100 03/22/19 23:40 110 H 03/22/19 23:29 111 H 03/22/19 21:53 110 H 18 114/76 98 03/22/19 20:48 97.7 F 98 18 134/53 100 03/22/19 19:39 101 H 22 108/80 100 03/22/19 19:33 104 H 03/22/19 19:26 100 03/22/19 18:36 97.6 F 119 H 28 H 124/72 99 Intake and Output 03/23/19 03/23/19 03/23/19 06:59 14:59 22:59 Intake Total 23.236 261.183 Output Total 400 Balance -376.764 261.183 Intake: Intake, IV Titration 23.236 21.183 Amount Insulin Regular 100 unit 23.236 21.183 In Sodium Chloride 0.9% 100 ml @ Titrate IV .Q0M [facility] Rx#:[id number] Oral 240 Output: Urine 400 Other: # Voids 1 4 Weight 85 kg Gen. appearance, comfortable molecular distress Head exam was generally normal. There was no scleral icterus or corneal arcus. Mucous membranes were moist. Neck was supple and without jugular venous distension, thyromegaly, or carotid bruits. Carotids were easily palpable bilaterally. There was no adenopathy.. The patient has an inspiratory stridor. Neck examination is within normal limits. Sagar S4. Lungs sounds are diminished bilaterally and there are some expiratory first try this to her chest. She is scattered expiratory wheeze. Cardiac exam revealed the PMI to be normally situated and sized. The rhythm was regular and no extrasystoles were noted during several minutes of auscultation. The first and second heart sounds were normal and physiologic splitting of the second heart sound was noted. There were no murmurs, rubs, clicks, or gallops. Abdominal exam revealed normal bowel sounds. The abdomen was soft, non-tender, and without masses, organomegaly, or appreciable enlargement of the abdominal aorta. Examination of the extremities revealed easily palpable radial, femoral and pedal pulses. There was no cyanosis, clubbing or edema. Examination of the skin revealed no evidence of significant rashes, suspicious appearing nevi or other concerning lesions. Neurologically awake and alert and there is no focal neurological deficits. Results - Laboratory Findings CBC and BMP: 03/23/19 02:02 03/23/19 02:02 PT/INR, D-dimer PT 9.6 sec (9.0-12.0) 03/22/19 19:20 INR 0.9 (<1.2) 03/22/19 19:20 Abnormal lab findings: Abnormal Labs 03/22/19 03/23/19 03/23/19 19:20 01:07 02:02 MCHC 29.9 L Lymphocytes # 0.3 L Sodium Potassium Chloride 96 L Carbon Dioxide 31 H BUN 52 H Creatinine 1.67 H Glucose 219 H POC Glucose (mg/dL) >600 H 03/23/19 03/23/19 03/23/19 02:02 05:10 06:24 MCHC Lymphocytes # Sodium 135 L Potassium 5.3 H Chloride 92 L Carbon Dioxide BUN 55 H Creatinine 1.65 H Glucose 674 H* POC Glucose (mg/dL) 583 H 452 H 03/23/19 03/23/19 03/23/19 08:25 10:16 11:21 MCHC Lymphocytes # Sodium Potassium Chloride Carbon Dioxide BUN Creatinine Glucose POC Glucose (mg/dL) 255 H 122 H 196 H - Diagnostic Findings Chest x-ray: image reviewed Assessment and Plan Plan: 1 shortness of breath with evidence of inspiratory stridor. Presentation is suspicious for vocal cords injury/narrowing/paralysis. Tracheostenosis possible although doubtful. She will need direct visualization of the upper airways via bronchoscopy. The acute worsening shortness of breath probably related to a component of bronchitis in addition to her chronic lung issue. The patient similar presentation here in the hospital back in January 2019. Chest x-ray shows some new infiltration in the left lung base and the patient is currently on a combination of antibiotics and Decadron. She is feeling slightly better for now 2 COPD with history of ex-smoking and she quit smoking in 2003 currently on DuoNeb nebulized treatments on outpatient basis 3 coronary artery disease with previous cardiac intervention and stenting of LAD and she is post cardiac arrest at the time of the cardiac cath requiring aggressive hemodynamic support and prolonged intubation mechanical ventilation. 4 hypertension 5 diabetes mellitus type 2 6 diabetic peripheral neuropathy 7 obesity with features of HIRA PLAN Continue Unasyn. Continue Decadron. Continue the glyburide since [id number]. Recommending a bronchoscopy before upper and lower airway inspection once the condition is more stable. ENT evaluation is appreciated. His CAT scan of the chest was essentially nonrevealing
[2019-03-23 16:41] LABS: Glucose,Whole Blood 494 mg/dL (75-99)
[2019-03-23] MEDS: INSULIN ASPART (NovoLOG) 100 UNIT/ML VIAL SQ SCH (17:05)
[2019-03-23] MEDS: INSULIN REGULAR 100 UNIT in SODIUM CHLORIDE 0.9% 100 ML IV SCH (17:14)
[2019-03-23 18:02] LABS: Glucose,Whole Blood 391 mg/dL (75-99)
[2019-03-23 18:46] LABS: Glucose,Whole Blood 360 mg/dL (75-99)
[2019-03-23] MEDS ORDERED: AMPICILLIN-SULBACTAM 3 GM in SODIUM CHLORIDE 0.9% 100 ML IVPB ONE (19:00)
[2019-03-23 19:08] LABS: Glucose,Whole Blood 267 mg/dL (75-99)
[2019-03-23 19:35] LABS: Glucose,Whole Blood 239 mg/dL (75-99)
--- NOTE | 2019-03-23 20:25 | P.HPIM ---
History of Present Illness H&P Date: 03/23/19 Chief Complaint: Short of breath History of presenting complaint: This is a 63-year-old patient of Dr. Finley. Chronic stable medical conditions include hypertension, hyperlipidemia, diabetic peripheral neuropathy.Patient was in the hospital in October 2018 having cardiac arrest following LAD angioplasty. Also pulmonary embolism. Patient had to be on the ventilator. Patient also was felt a left vocal cord paralysis probably from intubation. Patient that time also had acute tubular necrosis and also dysphagia with aspiration to thin liquids. Corrected improved. Subsequently she was thought to have tracheal stenosis. Patient had followed up at Dr. Dr. Nelson's office. Apparently did have an indirect laryngoscopy. Results are not available. Patient does not do the results herself to. For last 1 the patient a copy increasingly short of breath. No fever. Minimal chills. Decreased appetite. Slight cough. No sputum. Presents to the ER. Was given steroids bronchodilators admitted for the same. Review of systems: GEN.: Tired EYES: None HEENT: None NECK: None RESPIRATORY: As above CARDIOVASCULAR: None GASTROINTESTINAL: None GENITOURINARY: None MUSCULOSKELETAL: None LYMPHATICS: None HEMATOLOGICAL: None PSYCHIATRY: None NEUROLOGICAL: None Past medical history: Cardiac arrest following cardiac catheterization during stenting of LAD, coronary artery disease with stent to LAD, status post ventilator, suspected tracheal stenosis following intubation, COPD, diabetes mellitus type II, hypertension, hyperlipidemia, diabetic peripheral neuropathy, left vocal cord paralysis, acute tubular necrosis, Social history: Retired, smoked a pack a day for 30 years stopped in 2014. Lives with daughter. And other family members several of them smoke Family history: Dementia, diabetes mellitus Physical examination: VITAL SIGNS: GENERAL: BMI 37.8, sitting up short of breath some wheezing EYES: Pupils equal. Conjunctiva normal. HEENT: External appearance of nose and ears normal, oral cavity grossly normal. NECK: JVD not raised; masses not palpable. HEART: First and second heart sounds are normal; no edema. LUNGS: Respiratory rate increased, decreased breath sounds prolonged expiration. ABDOMEN: Soft, nontender, liver spleen not palpable, no masses palpable. PSYCH: [Alert and oriented x3; mood and affect slightly anxious l. NEUROLOGICAL: Cranial nerves grossly intact; no facial asymmetry, power and sensation grossly intact. LYMPHATICS: No lymph nodes palpable in the axilla and neck INVESTIGATIONS, reviewed in the clinical context: White count 7.8, hemoglobin 11.7, platelets 269, progression 4.3, bun 52, creatinine 1.67 BUN was 59 creatinine 1.65 and January 2019 Glucose 21 9 repeat Accu-Chek was more than 600 Assessment: -Acute COPD exacerbation in an ex-smoker, and exposed to secondhand smoking -Possible tracheal stenosis following intubation -History of cardiac arrest following stenting to LAD -Coronary artery disease with stent to LAD -Diabetes mellitus 2 uncontrolled with hyper glycemia on insulin drip secondary to steroids -Essential hypertension -Hyperlipidemia -Diabetic peripheral neuropathy -Left vocal cord paralysis from intubation -Obesity BMI 35 Plan: Patient started on DuoNeb every 4 hours, IV steroids, and on insulin drip, home medications resumed. Consultation to pulmonary and ENT was made. Did do the nurse to a pain patient's records from Dr. Nelson's office to determine what was found on indirect laryngoscopy. Care was discussed with the patient. Lovenox for DVT prophylaxis. We will cut back the dose of Decadron to 1 mg every 6 Past Medical History Past Medical History: Coronary Artery Disease (CAD), CVA/TIA, Diabetes Mellitus, Hyperlipidemia, Hypertension Additional Past Medical History / Comment(s): Diabetic peripheral neuropathyongoing, cardiac arrest, back pain, TIA 2011 no residual, heart murmur-had a stress test, found a "spot"-had a planned heart cath to evaluate- blockage in "widowmaker" and coded during the cath was vented and in ICU Last Myocardial Infarction Date:: unknown History of Any Multi-Drug Resistant Organisms: MRSA Date of last positivie culture/infection: 04/14/2015 MDRO Source:: top of head Past Surgical History: Heart Catheterization With Stent, Tubal Ligation Additional Past Surgical History / Comment(s): bilat cataract surgery Past Anesthesia/Blood Transfusion Reactions: No Reported Reaction Date of Last Stent Placement:: 10/02/18 Past Psychological History: No Psychological Hx Reported Smoking Status: Former smoker Past Alcohol Use History: None Reported Additional Past Alcohol Use History / Comment(s): QUIT SMOKING 2003 Past Drug Use History: None Reported - Past Family History Mother Family Medical History: Dementia, Diabetes Mellitus Father Family Medical History: Diabetes Mellitus, Deep Vein Thrombosis (DVT) Medications and Allergies Home Medications Medication Instructions Recorded Confirmed Type Amitriptyline HCl [Elavil] 25 mg PO HS #5 tab 10/16/18 03/22/19 Rx Aspirin 81 mg PO DAILY chew 10/16/18 03/22/19 Rx Lisinopril [Zestril] 5 mg PO DAILY tab 10/16/18 03/22/19 Rx Prasugrel [Effient] 10 mg PO DAILY tab 10/16/18 03/22/19 Rx Furosemide [Lasix] 40 mg PO DAILY 01/10/19 03/22/19 History Gabapentin 800 mg PO QID 01/10/19 03/22/19 History Hydrochlorothiazide [Hydrodiuril] 25 mg PO DAILY 01/10/19 03/22/19 History INSULIN ASPART (NovoLOG) [NovoLOG See Protocol SQ ACHS 01/10/19 03/22/19 History (formulary)] Insulin Degludec [Tresiba] 24 units SQ HS 01/10/19 03/22/19 History Magnesium Oxide 400 mg PO BID 01/10/19 03/22/19 History Ipratropium-Albuterol Nebulize 3 ml INHALATION RT-QID PRN #120 01/13/19 03/22/19 Rx [Duoneb 0.5 mg-3 mg/3 ml Soln] ampul.neb Budesonide/Formoterol Fumarate 2 puff INHALATION RT-BID 03/22/19 03/22/19 History [Symbicort 160-4.5 Mcg Inhaler] Ezetimibe [Zetia] 10 mg PO DAILY 03/22/19 03/22/19 History Allergies Allergy/AdvReac Type Severity Reaction Status Date / Time Lqcuxdb-Ogy-Xgl Reductase AdvReac muscle Verified 03/22/19 18:52 Inhibitor pain/breakdown Physical Exam Vitals: Vital Signs Temp Pulse Pulse Resp BP BP Pulse Ox 03/23/19 11:25 103 H 03/23/19 11:24 97.9 F 103 H 20 140/76 97 03/23/19 11:17 100 03/23/19 11:08 101 H 03/23/19 09:42 100 20 92/73 96 03/23/19 09:21 97.4 F L 107 H 22 141/97 90 L 03/23/19 08:00 97.4 F L 106 H 22 141/97 90 L 03/23/19 07:40 98 03/23/19 07:26 96 03/23/19 06:23 103 H 20 115/58 97 03/23/19 03:19 96 03/23/19 03:09 105 H 03/23/19 00:00 98.2 F 112 H 20 142/82 100 03/22/19 23:40 110 H 03/22/19 23:29 111 H 03/22/19 21:53 110 H 18 114/76 98 03/22/19 20:48 97.7 F 98 18 134/53 100 03/22/19 19:39 101 H 22 108/80 100 03/22/19 19:33 104 H 03/22/19 19:26 100 03/22/19 18:36 97.6 F 119 H 28 H 124/72 99 Intake and Output 03/22/19 03/23/19 03/23/19 22:59 06:59 14:59 Intake Total 23.236 21.183 Output Total 400 Balance -376.764 21.183 Intake: Intake, IV Titration 23.236 21.183 Amount Insulin Regular 100 unit 23.236 21.183 In Sodium Chloride 0.9% 100 ml @ Titrate IV .Q0M [facility] Rx#:[id number] Output: Urine 400 Other: # Voids 1 Weight 83.915 kg 85 kg Results CBC & Chem 7: 03/23/19 02:02 03/23/19 02:02 Labs: Abnormal Lab Results - Last 24 Hours (Table) 03/22/19 03/23/19 03/23/19 Range/Units 19:20 01:07 02:02 MCHC 29.9 L (31.0-37.0) g/dL Lymphocytes # 0.3 L (1.0-4.8) k/uL Sodium (137-145) mmol/L Potassium (3.5-5.1) mmol/L Chloride 96 L (98-107) mmol/L Carbon Dioxide 31 H (22-30) mmol/L BUN 52 H (7-17) mg/dL Creatinine 1.67 H (0.52-1.04) mg/dL Glucose 219 H (74-99) mg/dL POC Glucose (mg/dL) >600 H (75-99) mg/dL 03/23/19 03/23/19 03/23/19 Range/Units 02:02 05:10 06:24 MCHC (31.0-37.0) g/dL Lymphocytes # (1.0-4.8) k/uL Sodium 135 L (137-145) mmol/L Potassium 5.3 H (3.5-5.1) mmol/L Chloride 92 L (98-107) mmol/L Carbon Dioxide (22-30) mmol/L BUN 55 H (7-17) mg/dL Creatinine 1.65 H (0.52-1.04) mg/dL Glucose 674 H* (74-99) mg/dL POC Glucose (mg/dL) 583 H 452 H (75-99) mg/dL 03/23/19 03/23/19 03/23/19 Range/Units 08:25 10:16 11:21 MCHC (31.0-37.0) g/dL Lymphocytes # (1.0-4.8) k/uL Sodium (137-145) mmol/L Potassium (3.5-5.1) mmol/L Chloride (98-107) mmol/L Carbon Dioxide (22-30) mmol/L BUN (7-17) mg/dL Creatinine (0.52-1.04) mg/dL Glucose (74-99) mg/dL POC Glucose (mg/dL) 255 H 122 H 196 H (75-99) mg/dL Microbiology - Last 24 Hours (Table) 03/22/19 19:24 Throat Culture - Preliminary Throat Thrombosis Risk Factor Assmnt - Choose All That Apply Any of the Below Risk Factors Present?: Yes Each Factor Represents 1 point: Obesity (BMI >25) Other Risk Factors: Yes Each Risk Factor Represents 2 Points: Age 61-74 years Each Risk Factor Represents 3 Points: Family history of DVT/PE Thrombosis Risk Factor Assessment Total Risk Factor Score: 6 Thrombosis Risk Factor Assessment Level: High Risk
[2019-03-23] MEDS ORDERED: INSULIN DETEMIR (LEVEMIR) 100 UNIT/ML SYR SQ SCH (21:00)
[2019-03-23] MEDS ORDERED: INSULIN DEGLUDEC 24 UNIT SQ SCH ×3 (21:00)
[2019-03-23] MEDS: AMITRIPTYLINE HCL 25 MG TAB PO SCH (21:08)
[2019-03-23 21:17] LABS: Glucose,Whole Blood 136 mg/dL (75-99)
--- NOTE | 2019-03-23 21:27 | CONS ---
CONSULTATION DATE OF CONSULTATION: 03/23/2019 REASON FOR CONSULTATION: Stridor. HISTORY OF PRESENT ILLNESS: The patient is a very pleasant 63-year-old female who is well known to my office. I saw the patient during the summer for evaluation of stridor. The patient stated that in October she underwent a cardiac catheterization and during the cardiac catheterization, she arrested on the table and had to be resuscitated twice and also had to be intubated. I assume it was a crash (emergency) intubation. The patient states that she was in the hospital for several days afterward and it was after this incident that she noticed a change both in her voice and her breathing. At the time that she was seen in my office, she was not in any respiratory distress. However, her voice was felt to be quite breathy and a indirect laryngoscopy in the office suggested either paresis/paralysis of the left true vocal cord or possible dislocation of the arytenoids cartilage. Either of these conditions could cause the patient's voice to be either breathy or hoarse. In addition to this, some patients will experience inspiratory stridor. The patient was scheduled for a video stroboscopy and this was done at [facility]. I am sure the results are in the patient's office chart, but I have not yet seen them. The purpose of this test was to evaluate the condition of the vocal cords. The patient states that several days ago, she noticed that she was gradually becoming more hoarse and having more difficulty breathing. Her initial response to this was to go one of the urgent care centers, namely [facility], for treatment. However, she states that they did not give her any medication or any type of treatment. Instead they suggested that she go to [facility]. The patient presented at [facility] and was seen by the emergency room physician. The emergency room physician called me with a description of a patient with significant stridor, but a normal CT scan and normal exam of the oropharynx. In addition to this, the emergency room physician stated that he had given her an updraft treatment, plus he had given her 10 mg of Decadron, ampicillin, and the patient seem to be dramatically improved. After discussing the case with the emergency room physician, I felt that it would be best to admit the patient for at least overnight observation and treatment. The patient was not experiencing any pain in the pharynx. Therefore, adult acute epiglottitis was not a consideration. At this time, the patient states that she is doing much better. She has received several doses of Decadron and she was given IV ampicillin. She states that she has been having these episodes periodically since she had the emergency intubation during her cardiac catheterization. PAST MEDICAL HISTORY: Past medical history reveals that she has: ALLERGIES: TO STATINS. MEDICATIONS: Her current medications include Symbicort, DuoNeb updraft treatments, Effient, gabapentin, Zetia, Lasix, hydrochlorothiazide, NovoLog insulin, Tresila, and Elavil. REVIEW OF SYSTEMS: Review of systems is positive with respect to the respiratory system as the patient is known to have stridor. The metabolic endocrine system is positive for type 1 diabetes mellitus and hypercholesterolemia. The remainder of the review of systems is unremarkable. PHYSICAL EXAMINATION: The patient is a pleasant 63-year-old female who was alert, cooperative and oriented to time and place. HEENT examination patient is normocephalic. Tympanic membranes are normal. Middle ear spaces are free of any fluid or infection. Pupils equal, round, reactive to light and accommodation. Conjunctivae are clear. Extraocular movements are within normal limits. Intranasal examination reveals moderate septal deviation to the right with compensatory hypertrophy of the inferior turbinates bilaterally. There is a moderate amount of clear mucus on the mucous membranes and draining down the posterior pharynx. Examination of oropharynx is unremarkable. Cranial nerves 2-12, palpation of the neck and the remainder of the head and neck exam are within normal limits. Chest/cardiovascular: Lung benítez are essentially clear, although there is some slight wheezing at the bases and there is also transmission of the upper airway sounds into the lung benítez. The patient is in regular sinus rhythm. S1, S2 are present without evidence of murmurs S3s or S4. Abdomen: There is no evidence any masses megaly or tenderness. Abdomen is soft. The remainder of the physical exam is unremarkable. IMPRESSION: Inspiratory stridor, etiology possible paresis/paralysis of the vocal cord (left?) PLAN: I would suggest we continue with the Decadron schedule that I have provided and also with the IV antibiotics. Since the patient is doing much better, I feel that she could be discharged home tomorrow and because there was a question of possible pneumonia, I would give her a prescription for an antibiotic. I have left a prescription and the chart for Augmentin 875 b.i.d. #10. She previously had a followup appointment in my office, but became quite ill and was not able to keep it. Therefore, I have advised her that when she gets out of the hospital tomorrow, that she should call my office and schedule an appointment for next week and we will review the video stroboscopy results. In addition to this, I have advised her that she might request a rescue inhaler from her family physician to use in the event that she had problems and she was not home to use her updraft treatment. I want to take this opportunity to thank you for allowing me to assist in the care of your patient. If I can be of any further assistance, feel free to call my office. Again, this patient can be discharged home on Sunday03/24/2019. GA / AYUSH: [id number] / MTDD
[2019-03-23] MEDS: methylPREDNISolone SOD SUCCI 40 MG/ML 1 ML VIAL IV SCH (23:31)
[2019-03-23 23:32] LABS: Glucose,Whole Blood 252 mg/dL (75-99)
[2019-03-24] MEDS ORDERED: DEXAMETHASONE SOD PHOSPHATE 4 MG/ML 1 ML VIAL IV SCH
[2019-03-24 01:38] LABS: Glucose,Whole Blood 188 mg/dL (75-99)
[2019-03-24] MEDS: IPRATROPIUM-ALBUTEROL 3 ML NEB INHALATION SCH ×6 (03:08→23:53)
[2019-03-24] MEDS: INSULIN REGULAR 100 UNIT in SODIUM CHLORIDE 0.9% 100 ML IV SCH (04:17)
[2019-03-24 04:18] LABS: Glucose,Whole Blood 136 mg/dL (75-99)
[2019-03-24 05:43] LABS: Glucose,Whole Blood 210 mg/dL (75-99)
[2019-03-24 07:48] LABS: Glucose,Whole Blood 185 mg/dL (75-99)
[2019-03-24] MEDS: INSULIN ASPART (NovoLOG) 100 UNIT/ML VIAL SQ SCH ×3 (07:49→17:45)
--- NOTE | 2019-03-24 08:58 | P.CRDCN ---
History of Present Illness Consult date: 03/24/19 Requesting physician: Maico Blunt Consult reason: shortness of breath Chief complaint: Shortness of breath History of present illness: This is a 53-year-old female who follows regularly with Dr. Grace in the office. She has a known history of hypertension, diabetes, hyperlipidemia, peripheral neuropathy, remote history of TIA, history of nicotine dependence, was omitted to the hospital in October of this year to undergo cardiac catheterization because of an abnormal myocardial perfusion imaging with an anterior wall defect. The patient underwent a cardiac catheterization which r evealed calcified coronary arteries with a subtotal occluded mid LAD and moderate significant disease in the RCA, subsequent to that patient underwent successful stenting of a subtotally occluded LAD with reduction of stenosis from 99% to 0%, patient also went into cardiogenic shock at that time with no evidence of tamponade not, she did require mechanical support with an amp however, and multiple bouts of CPR, she was intubated and in the intensive care unit at that time. Patient did have an echo performed on that admission which revealed an ejection fraction of 30-35%. Patient also has a known history of obstructive sleep apnea, obesity, and COPD. He presented to the hospital on this occasion, on the of this month with symptoms of shortness of breath. Her chest x-ray showed new minimal infiltrate or pleural reaction at the left lung base compared with old exam. A soft tissue next x-ray was performed which was negative for cervical soft tissue issues, normal epiglottis, no change compared with prior exam. Blood pressure 108/60 with a heart rate in the 80s, 90% on 2 L of oxygen. White blood cell count 7.0, hemoglobin 11.4, platelet count 275. Sodium 135, potassium 5.3, BUN 55 and creatinine 1.6. Blood glucose on arrival 219, yesterday up to 674, 185 this morning. Magnesium level 2.3. Past Medical History Past Medical History: Coronary Artery Disease (CAD), CVA/TIA, Diabetes Mellitus, Hyperlipidemia, Hypertension Additional Past Medical History / Comment(s): Diabetic peripheral neuropathyongoing, cardiac arrest, back pain, TIA 2011 no residual, heart murmur-had a stress test, found a "spot"-had a planned heart cath to evaluate- blockage in "widowmaker" and coded during the cath was vented and in ICU Last Myocardial Infarction Date:: unknown History of Any Multi-Drug Resistant Organisms: MRSA Date of last positivie culture/infection: 04/14/2015 MDRO Source:: top of head Past Surgical History: Heart Catheterization With Stent, Tubal Ligation Additional Past Surgical History / Comment(s): bilat cataract surgery Past Anesthesia/Blood Transfusion Reactions: No Reported Reaction Date of Last Stent Placement:: 10/02/18 Past Psychological History: No Psychological Hx Reported Smoking Status: Former smoker Past Alcohol Use History: None Reported Additional Past Alcohol Use History / Comment(s): QUIT SMOKING 2003 Past Drug Use History: None Reported - Past Family History Mother Family Medical History: Dementia, Diabetes Mellitus Father Family Medical History: Diabetes Mellitus, Deep Vein Thrombosis (DVT) Medications and Allergies Home Medications Medication Instructions Recorded Confirmed Type Amitriptyline HCl [Elavil] 25 mg PO HS #5 tab 10/16/18 03/22/19 Rx Aspirin 81 mg PO DAILY chew 10/16/18 03/22/19 Rx Lisinopril [Zestril] 5 mg PO DAILY tab 10/16/18 03/22/19 Rx Prasugrel [Effient] 10 mg PO DAILY tab 10/16/18 03/22/19 Rx Furosemide [Lasix] 40 mg PO DAILY 01/10/19 03/22/19 History Gabapentin 800 mg PO QID 01/10/19 03/22/19 History Hydrochlorothiazide [Hydrodiuril] 25 mg PO DAILY 01/10/19 03/22/19 History INSULIN ASPART (NovoLOG) [NovoLOG See Protocol SQ ACHS 01/10/19 03/22/19 History (formulary)] Insulin Degludec [Tresiba] 24 units SQ HS 01/10/19 03/22/19 History Magnesium Oxide 400 mg PO BID 01/10/19 03/22/19 History Ipratropium-Albuterol Nebulize 3 ml INHALATION RT-QID PRN #120 01/13/19 03/22/19 Rx [Duoneb 0.5 mg-3 mg/3 ml Soln] ampul.neb Budesonide/Formoterol Fumarate 2 puff INHALATION RT-BID 03/22/19 03/22/19 History [Symbicort 160-4.5 Mcg Inhaler] Ezetimibe [Zetia] 10 mg PO DAILY 03/22/19 03/22/19 History Allergies Allergy/AdvReac Type Severity Reaction Status Date / Time [id number] Reductase AdvReac muscle Verified 03/22/19 18:52 Inhibitor pain/breakdown Physical Exam Vitals: Vital Signs Temp Pulse Pulse Resp BP Pulse Ox 03/24/19 08:00 98.3 F 88 18 107/51 98 03/24/19 07:11 90 03/24/19 07:00 90 96 03/24/19 04:00 97.3 F L 91 18 109/64 96 03/24/19 03:18 91 03/24/19 03:09 91 03/24/19 00:00 99.2 F 107 H 20 111/57 95 03/23/19 23:12 92 03/23/19 23:01 101 H 03/23/19 20:04 104 H 03/23/19 20:00 98.6 F 106 H 24 104/57 94 L 03/23/19 19:53 109 H 03/23/19 16:10 102 H 03/23/19 16:00 98.2 F 102 H 107 H 18 121/59 95 03/23/19 11:25 103 H 03/23/19 11:24 97.9 F 103 H 20 140/76 97 03/23/19 11:17 100 03/23/19 11:08 101 H 03/23/19 09:42 100 20 92/73 96 03/23/19 09:21 97.4 F L 107 H 22 141/97 90 L Intake and Output 03/23/19 03/24/19 03/24/19 22:59 06:59 14:59 Intake Total 305.433 24.533 7.667 Balance 305.433 24.533 7.667 Intake: Intake, IV Titration 65.433 24.533 7.667 Amount Insulin Regular 100 unit 65.433 24.533 7.667 In Sodium Chloride 0.9% 100 ml @ Titrate IV .Q0M [facility] Rx#:[id number] Oral 240 Other: # Voids 1 1 Weight 82.7 kg PHYSICAL EXAMINATION: GENERAL: 43-year-old female in no acute distress at the time of my examination HEENT: Head is atraumatic, normocephalic. Pupils equal, round. Sclera anicteric. Conjunctiva are clear. Mucous membranes of the mouth are moist. Neck is supple. There is no elevated jugular venous pressure. No carotid bruit is heard. HEART EXAMINATION: Heart S1, S2 normal. No murmur or gallop heard. CHEST EXAMINATION: Lungs reveal diminished air entry bilaterally, expiratory wheezing noted. Positive inspiratory stridor ABDOMEN: Soft, nontender. Bowel sounds are heard. No organomegaly noted. EXTREMITIES: 2+ peripheral pulses with no evidence of peripheral edema and no calf tenderness noted. NEUROLOGIC patient is awake, alert and oriented 3 . . Results 03/23/19 02:02 03/23/19 02:02 Current Medications Generic Name Dose Route Start Last Admin Trade Name Freq PRN Reason Stop Dose Admin Albuterol/Ipratropium 3 ml 03/22/19 21:15 03/24/19 07:00 Duoneb 0.5 Mg-3 Mg/3 Ml Soln INHALATION 3 ml RT-Q4H GREG Administration Amitriptyline HCl 25 mg 03/23/19 21:00 03/23/19 21:08 Elavil PO 25 mg HS GREG Administration Aspirin 81 mg 03/23/19 09:00 03/23/19 08:45 Aspirin PO 81 mg DAILY GREG Administration Ezetimibe 10 mg 03/23/19 09:00 03/23/19 09:41 Zetia PO 10 mg DAILY GREG Administration Furosemide 40 mg 03/23/19 09:00 03/23/19 08:45 Lasix PO 40 mg DAILY GREG Administration Gabapentin 800 mg 03/22/19 22:00 03/23/19 21:08 Neurontin PO 800 mg QID GREG Administration Hydrochlorothiazide 25 mg 03/23/19 09:00 03/23/19 09:41 Hydrodiuril PO 25 mg DAILY GREG Administration Insulin Human Regular 100 unit 101 mls @ 0 mls/hr 03/23/19 17:00 03/24/19 07:51 / Sodium Chloride IV 3 ml/hr .Q0M GREG 3 mls/hr Titration Protocol Titrate Insulin Aspart 11 unit 03/23/19 17:30 03/24/19 07:49 Novolog 0.13 unit/kg (11 unit) Not Given SQ AC-TID GREG Methylprednisolone Sodium Succinate 40 mg 03/24/19 00:00 03/23/19 23:31 Solu-Medrol IV 40 mg Q8HR GREG Administration Naloxone HCl 0.2 mg 03/22/19 21:29 Narcan IV Q2M PRN Opioid Reversal Prasugrel 10 mg 03/23/19 09:00 03/23/19 09:41 Effient PO 10 mg DAILY GREG Administration Intake and Output 03/23/19 03/24/19 03/24/19 22:59 06:59 14:59 Intake Total 305.433 24.533 7.667 Balance 305.433 24.533 7.667 Intake: Intake, IV Titration 65.433 24.533 7.667 Amount Insulin Regular 100 unit 65.433 24.533 7.667 In Sodium Chloride 0.9% 100 ml @ Titrate IV .Q0M GREG Rx#:[id number] Oral 240 Other: # Voids 1 1 Weight 82.7 kg 03/23/19 02:02 03/23/19 02:02 EKG Interpretations (text) No EKG was performed, telemetry shows a normal sinus rhythm Assessment and Plan Plan: Assessment and plan #1 symptoms of shortness of breath, possible exacerbation of COPD and bronchitis. Pulmonary is following with the patient, suspicion for possible vocal cord injury/narrowing/paralysis, bronchoscopy recommended. #2 known history of coronary artery disease with prior LAD stenting and s ubsequent cardiac arrest requiring Impella support, intubation and mechanical patient in October of this year, patient at that time was also found to have significant disease in the ostium of the right coronary artery . #3 hypertension #4 hyperlipidemia #5 diabetes #6 diabetic neuropathy #7 history of nicotine dependence, quit smoking in 2003 #8 COPD #9 obstructive sleep apnea #10 mild renal insufficiency #11 hyperkalemia Plan We will obtain a repeat echocardiogram with Doppler study, the echo performed in October of this year revealed an ejection fraction of 30-35%. We will also obtain a BNP level, continue baby aspirin along with Effient, continues area, Lasix, initiate a small dose of beta dennis. Patient was on an VIANEY inhibitor which is currently on hold because of abnormal renal function and hyperkalemia, once that stabilizes we will resume the VIANEY inhibitor. Patient is not currently on a statin because of history of rhabdomyolysis from statins in the past. DNP note has been reviewed, I agree with a documented findings and plan of care. Patient was seen and examined.
[2019-03-24] MEDS ORDERED: METOPROLOL SUCCINATE (ER) 25 MG TAB.ER.24H PO SCH (09:00)
[2019-03-24 09:49] LABS: Glucose,Whole Blood 149 mg/dL (75-99)
[2019-03-24 10:00] LABS: HGB 10.9 gm/dL (11.4-16.0); MCH 27.7 pg (25.0-35.0); MCHC 31.1 g/dL (31.0-37.0); Platelet Count 314 k/uL (150-450); RBC 3.93 m/uL (3.80-5.40); RDW 14.4 % (11.5-15.5); WBC 21.2 k/uL (3.8-10.6)
[2019-03-24] MEDS: HYDROCHLOROTHIAZIDE 25 MG TAB PO SCH (10:15)
[2019-03-24] MEDS: GABAPENTIN 400 MG CAP PO SCH ×4 (10:15→21:18)
[2019-03-24] MEDS: FUROSEMIDE 40 MG TAB PO SCH (10:15)
[2019-03-24] MEDS: ASPIRIN 81 MG PO SCH (10:15)
[2019-03-24] MEDS: EZETIMIBE 10 MG TAB PO SCH (10:15)
[2019-03-24] MEDS: PRASUGREL 10 MG TAB PO SCH (10:15)
[2019-03-24] MEDS: methylPREDNISolone SOD SUCCI 40 MG/ML 1 ML VIAL IV SCH ×2 (10:15→16:40)
[2019-03-24 10:16] LABS: Calcium 9.9 mg/dL (8.4-10.2); Potassium 4.7 mmol/L (3.5-5.1)
--- NOTE | 2019-03-24 11:01 | ECHOF ---
Referral Reason:sob MEASUREMENTS -------- HEIGHT: 149.9 cm WEIGHT: 83.0 kg BP: 107/51 RVIDd: 3.0 cm (< 3.3) IVSd: 1.3 cm (0.6 - 1.1) LVIDd: 4.0 cm (3.9 - 5.3) LVPWd: 1.4 cm (0.6 - 1.1) IVSs: 1.4 cm LVIDs: 2.8 cm LVPWs: 1.6 cm LAESV Index (A-L): 30.61 ml/m Ao Diam: 2.3 cm (2.0 - 3.7) AV Cusp: 1.4 cm (1.5 - 2.6) MV EXCURSION: 12.108 mm (> 18.000) MV EF SLOPE: 76 mm/s (70 - 150) EPSS: 0.6 cm MV E Avila: 0.81 m/s MV DecT: 138 ms MV A Avila: 1.19 m/s MV E/A Ratio: 0.68 RAP: 5.00 mmHg RVSP: 39.87 mmHg FINDINGS -------- Sinus rhythm. This was a technically adequate study. The left ventricular size is normal. There is moderate concentric left ventricular hypertrophy. O verall left ventricular systolic function is normal with, an EF between 55 - 60 %. The diastolic fi lling pattern is normal for the age of the patient 12.11. The right ventricle is normal in size. LA is midly dilated 29-33ml/m2. The right atrial size is normal. Interatrial and interventricular septum intact. There is mild aortic valve sclerosis. There is no evidence of aortic regurgitation. Mild mitral annular calcification present. No mitral regurgitation. Mild tricuspid regurgitation present. There is mild pulmonary hypertension. The right ventricular systolic pressure, as measured by Doppler, is 39.87mmHg. There is no pulmonic regurgitation present. The aortic root size is normal. Normal inferior vena cava with normal inspiratory collapse consistent with estimated right atrial pre ssure of 5 mmHg. There is no pericardial effusion. CONCLUSIONS -------- 1. Sinus rhythm. 2. This was a technically adequate study. 3. The left ventricular size is normal. 4. There is moderate concentric left ventricular hypertrophy. 5. Overall left ventricular systolic function is normal with, an EF between 55 - 60 %. 6. The diastolic filling pattern is normal for the age of the patient 12.11 7. The right ventricle is normal in size. 8. LA is midly dilated 29-33ml/m2. 9. The right atrial size is normal. 10. Interatrial and interventricular septum intact. 11. There is mild aortic valve sclerosis. 12. There is no evidence of aortic regurgitation. 13. Mild mitral annular calcification present. 14. No mitral regurgitation. 15. Mild tricuspid regurgitation present. 16. There is mild pulmonary hypertension. 17. The right ventricular systolic pressure, as measured by Doppler, is 39.87mmHg. 18. There is no pulmonic regurgitation present. 19. The aortic root size is normal. 20. Normal inferior vena cava with normal inspiratory collapse consistent with estimated right atrial pressure of 5 mmHg. 21. There is no pericardial effusion. STAFFING SPECIALIST: Kanika Lopez RDCS
[2019-03-24 11:46] LABS: Hemoglobin A1C 8.4 % (4.0-6.0)
[2019-03-24 11:48] LABS: Glucose,Whole Blood 286 mg/dL (75-99)
[2019-03-24 13:29] LABS: Glucose,Whole Blood 162 mg/dL (75-99)
[2019-03-24 15:49] LABS: Glucose,Whole Blood 129 mg/dL (75-99)
[2019-03-24 16:40] LABS: Glucose,Whole Blood 161 mg/dL (75-99)
--- NOTE | 2019-03-24 17:26 | P.PN ---
Subjective Progress Note Date: 03/24/19 Principal diagnosis: Shortness of breath and stridor Another admission for this 63-year-old female patient who is known to me and I have been involved in her care after a coronary intervention that led into cardiogenic shock post stenting of the LAD and the patient required insertion of Impela device and she was intubated and placed on a mechanical ventilator for more than 10 days requiring sedation and ultimately she was weaned off she was extubated. She has hypertension and hypertensive heart disease and shouldn't diabetes mellitus. She has a body mass index of 37.8 consistent with obesity. The patient came back to the hospital back in January 2019 complaining of incr eased shortness of breath and she was found to have an expiratory stridor. She was seen by Dr. Khanna. He recommended a bronchoscopy which the patient was reluctant to do due to concerns of cardiac arrest. Outpatient PFT has been done in the past and the results are not available. She did have a ENT evaluation by Dr. Nelson on outpatient basis including a direct laryngoscopy and she is not sure she was told by the vocal cords were paralyzed. The patient had a CAT scan of the chest back in January 2019 and showed no evidence of any tracheal disease. Lung parenchyma was essentially within normal limits and there was few linear areas of atelectatic changes in the right midlung in the lung bases bilaterally. The lungs were clear. No masses were identified. There was a 6 mm nodule in the lower lobe for which follow-up was recommended. Mediastinum was clear. There was cholelithiasis and the gallbladder. There were some also changes in the midsternum consistent with a healed fracture. Some mild callus formation was also seen of unknown etiology. Follow-up was recommended. Patient is coming in for a similar presentation of worsening shortness of breath and inspiratory stridor. She is currently on bronchodilators and systemic steroids patient already feeling better. No fever or chills. No synovitis sputum production. She is currently on Decadron. Her cough is weak. She produces a harsh noises in her neck upon coughing. On 03/24/2019 patient seen in follow-up on solid care unit, she is awake and alert, in no acute distress, her voice is still a little breathy, but she states it is improving, she remains on IV Decadron, no cough or sputum production, she is on 2 L of oxygen with a pulse ox of 96%, no difficulty swallowing, no fever or chills, lung sounds are positive for some limited crackles at the right base, no complaints of chest pain, or pleuritic chest discomfort, today's labs have been reviewed, showing white blood cell count of 21.2, hemoglobin of 10.9, electrolytes are within normal limits, renal profile has worsened, with BUN at 80 and creatinine 1.79. ProBNP was elevated at 1910, echocardiogram was completed showing EF of 55-60%. No wheezing noted on today's exam, no rhonchi. Objective - Vital Signs Vital signs: Vital Signs Temp 98.3 F 03/24/19 08:00 Pulse 97 03/24/19 11:57 Resp 18 03/24/19 11:57 BP 159/77 03/24/19 11:57 Pulse Ox 96 03/24/19 11:57 Intake & Output 03/23/19 03/24/19 03/24/19 18:59 06:59 18:59 Intake Total 542.883 48.266 269.617 Balance 542.883 48.266 269.617 Weight 85 kg 82.7 kg Intake: Intake, IV Titration 62.883 48.266 29.617 Amount Insulin Regular 100 unit 21.183 In Sodium Chloride 0.9% 100 ml @ Titrate IV .Q0M [facility] Rx#:[id number] Insulin Regular 100 unit 41.7 48.266 29.617 In Sodium Chloride 0.9% 100 ml @ Titrate IV .Q0M [facility] Rx#:[id number] Oral 480 240 Other: # Voids 1 1 1 - Exam GENERAL EXAM: Alert, pleasant, 63-year-old white female on 2 L of oxygen with a pulse ox of 96%, with slight residual breathy voice comfortable in no apparent distress. HEAD: Normocephalic/atraumatic. EYES: Normal reaction of pupils, equal size. Conjunctiva pink, sclera white. NOSE: Clear with pink turbinates. THROAT: No erythema or exudates. NECK: No masses, no JVD, no thyroid enlargement, no adenopathy. CHEST: No chest wall deformity. Symmetrical expansion. LUNGS: Equal air entry with minimal crackles at the right base crackles, wheeze, rhonchi or dullness. CVS: Regular rate and rhythm, normal S1 and S2, no gallops, no murmurs, no rubs ABDOMEN: Soft, nontender. No hepatosplenomegaly, normal bowel sounds, no guarding or rigidity. EXTREMITIES: No clubbing, no edema, no cyanosis, 2+ pulses and upper and lower extremities. MUSCULOSKELETAL: Muscle strength and tone normal. SPINE: No scoliosis or deformity SKIN: No rashes CENTRAL NERVOUS SYSTEM: Alert and oriented -3. No focal deficits, tone is normal in all 4 extremities. PSYCHIATRIC: Alert and oriented -3. Appropriate affect. Intact judgment and insight. - Labs CBC & Chem 7: 03/24/19 08:53 03/24/19 08:53 Labs: Abnormal Lab Results - Last 24 Hours (Table) 03/22/19 03/23/19 03/23/19 Range/Units 06:00 16:36 18:00 WBC (3.8-10.6) k/uL Hgb (11.4-16.0) gm/dL BUN (7-17) mg/dL Creatinine (0.52-1.04) mg/dL Glucose (74-99) mg/dL POC Glucose (mg/dL) 494 H 391 H (75-99) mg/dL Hemoglobin A1c 8.4 H (4.0-6.0) % 03/23/19 03/23/19 03/23/19 Range/Units 18:41 19:07 19:35 WBC (3.8-10.6) k/uL Hgb (11.4-16.0) gm/dL BUN (7-17) mg/dL Creatinine (0.52-1.04) mg/dL Glucose (74-99) mg/dL POC Glucose (mg/dL) 360 H 267 H 239 H (75-99) mg/dL Hemoglobin A1c (4.0-6.0) % 03/23/19 03/23/19 03/24/19 Range/Units 21:16 23:30 01:36 WBC (3.8-10.6) k/uL Hgb (11.4-16.0) gm/dL BUN (7-17) mg/dL Creatinine (0.52-1.04) mg/dL Glucose (74-99) mg/dL POC Glucose (mg/dL) 136 H 252 H 188 H (75-99) mg/dL Hemoglobin A1c (4.0-6.0) % 03/24/19 03/24/19 03/24/19 Range/Units 04:16 05:41 07:47 WBC (3.8-10.6) k/uL Hgb (11.4-16.0) gm/dL BUN (7-17) mg/dL Creatinine (0.52-1.04) mg/dL Glucose (74-99) mg/dL POC Glucose (mg/dL) 136 H 210 H 185 H (75-99) mg/dL Hemoglobin A1c (4.0-6.0) % 03/24/19 03/24/19 03/24/19 Range/Units 08:53 08:53 09:37 WBC 21.2 H (3.8-10.6) k/uL Hgb 10.9 L (11.4-16.0) gm/dL BUN 80 H (7-17) mg/dL Creatinine 1.79 H (0.52-1.04) mg/dL Glucose 163 H (74-99) mg/dL POC Glucose (mg/dL) 149 H (75-99) mg/dL Hemoglobin A1c (4.0-6.0) % 03/24/19 03/24/19 Range/Units 11:46 13:27 WBC (3.8-10.6) k/uL Hgb (11.4-16.0) gm/dL BUN (7-17) mg/dL Creatinine (0.52-1.04) mg/dL Glucose (74-99) mg/dL POC Glucose (mg/dL) 286 H 162 H (75-99) mg/dL Hemoglobin A1c (4.0-6.0) % Microbiology - Last 24 Hours (Table) 03/22/19 19:24 Throat Culture - Final Throat Assessment and Plan Plan: Assessment: 1 shortness of breath with evidence of inspiratory stridor. Presentation is suspicious for vocal cords injury/narrowing/paralysis. Tracheostenosis possible although doubtful. She will need direct visualization of the upper airways via bronchoscopy. The acute worsening shortness of breath probably related to a component of bronchitis in addition to her chronic lung issue. The patient similar presentation here in the hospital back in January 2019. Chest x-ray shows some new infiltration in the left lung base and the patient is currently on a combination of antibiotics and Decadron. She is feeling slightly better for now 2 COPD with history of ex-smoking and she quit smoking in 2003 currently on DuoNeb nebulized treatments on outpatient basis 3 coronary artery disease with previous cardiac intervention and stenting of LAD and she is post cardiac arrest at the time of the cardiac cath requiring aggressive hemodynamic support and prolonged intubation mechanical ventilation. 4 hypertension 5 diabetes mellitus type 2 6 diabetic peripheral neuropathy 7 obesity with features of HIRA Plan: Continue current medical treatment, no acute distress, patient is maintaining stable oxygen saturation, no fever or chills, no wheezing in bilateral lungs, some slight residual breathiness in the voice, but otherwise no acute distress, ENT service is following. Throat culture is negative, there has been no fever or chills. Soft tissue neck x-ray was negative for cervical soft tissue issues, normal epiglottis. No plans for bronchoscopy at this time, as this may exacerbate patient's stridor, from pulmonary perspective patient is stable for discharge home today, she can follow up with Dr. Atkinson in the office in one or 2 weeks I performed a history & physical examination of the patient and discussed their management with my nurse practitioner, Laura Davenport. I reviewed the nurse practitioner's note and agree with the documented findings and plan of care. Lung sounds are positive for minimal crackles at the right base. The findings and the impression was discussed with the patient. I attest to the documentation by the nurse practitioner. Time with Patient: Less than 30
[2019-03-24 17:28] LABS: Glucose,Whole Blood 180 mg/dL (75-99)
[2019-03-24 19:02] LABS: Glucose,Whole Blood 222 mg/dL (75-99)
[2019-03-24 20:56] LABS: Glucose,Whole Blood 261 mg/dL (75-99)
[2019-03-24] MEDS: AMITRIPTYLINE HCL 25 MG TAB PO SCH (21:18)
[2019-03-24 23:04] LABS: Glucose,Whole Blood 138 mg/dL (75-99)
--- NOTE | 2019-03-24 23:07 | P.PN ---
Progress Note - Text Progress Note Date: 03/24/19 Chief Complaint: Short of breath History of presenting complaint: This is a 63-year-old patient of Dr. Fniley. Chronic stable medical conditions include hypertension, hyperlipidemia, diabetic peripheral neuropathy.Patient was in the hospital in October 2018 having cardiac arrest following LAD angioplasty. Also pulmonary embolism. Patient had to be on the ventilator. Patient also was felt a left vocal cord paralysis probably from intubation. Patient that time also had acute tubular necrosis and also dysphagia with aspiration to thin liquids. Corrected improved. Subsequently she was thought to have tracheal stenosis. Patient had followed up at Dr. Dr. Nelson's office. Apparently did have an indirect laryngoscopy. Results are not available. Patient does not do the results herself to. For last 1 the patient a copy increasingly short of breath. No fever. Minimal chills. Decreased appetite. Slight cough. No sputum. Presents to the ER. Was given steroids bronchodilators admitted for the same. Admitted with acute COPD exacerbation. Today-. He better. Less wheezing. Less cough. No sputum. Eating better. Appears more relaxed. Review of systems: Was done for constitutional, cardiovascular, GI, pulmonary. relevant finding as above Active Medications Albuterol/Ipratropium (Duoneb 0.5 Mg-3 Mg/3 Ml Soln) 3 ml INHALATION RT-Q4H [facility] Last Admin: 03/24/19 20:13 Dose: 3 ml Documented by: Amitriptyline HCl (Elavil) 25 mg PO HS [facility] Last Admin: 03/24/19 21:18 Dose: 25 mg Documented by: Aspirin (Aspirin) 81 mg PO DAILY [facility] Last Admin: 03/24/19 10:15 Dose: 81 mg Documented by: Carvedilol (Coreg) 3.125 mg PO BID-W/MEALS [facility] Ezetimibe (Zetia) 10 mg PO DAILY [facility] Last Admin: 03/24/19 10:15 Dose: 10 mg Documented by: Furosemide (Lasix) 40 mg PO DAILY [facility] Last Admin: 03/24/19 10:15 Dose: 40 mg Documented by: Gabapentin (Neurontin) 800 mg PO QID [facility] Last Admin: 03/24/19 21:18 Dose: 800 mg Documented by: Hydrochlorothiazide (Hydrodiuril) 25 mg PO DAILY [facility] Last Admin: 03/24/19 10:15 Dose: 25 mg Documented by: Insulin Human Regular 100 unit (/ Sodium Chloride) 101 mls @ 0 mls/hr IV .Q0M [facility]; Protocol Last Titration: 03/24/19 21:03 Dose: 6 ml/hr, 6 mls/hr Documented by: Insulin Aspart (Novolog) 11 unit 0.13 unit/kg (11 unit) SQ AC-TID [facility] Last Admin: 03/24/19 17:45 Dose: 11 unit Documented by: Methylprednisolone Sodium Succinate (Solu-Medrol) 40 mg IV Q8HR [facility] Last Admin: 03/24/19 16:40 Dose: 40 mg Documented by: Naloxone HCl (Narcan) 0.2 mg IV Q2M PRN PRN Reason: Opioid Reversal Prasugrel (Effient) 10 mg PO DAILY [facility] Last Admin: 03/24/19 10:15 Dose: 10 mg Documented by: Physical examination: VITAL SIGNS: 98.3, 88, 18, 107/51, 98% on 2 L GENERAL: Sitting at the edge of the bed, breathing better. More relaxed EYES: Pupils equal. Conjunctiva normal. HEENT: External appearance of nose and ears normal, oral cavity grossly normal. NECK: JVD not raised; masses not palpable. HEART: First and second heart sounds are normal; no edema. LUNGS: Respiratory rate increased, decreased breath sounds ABDOMEN: Soft, nontender, liver spleen not palpable, no masses palpable. PSYCH: [Alert and oriented x3; mood and affect slightly anxious l. 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 Switched to by mouth prednisone. We'll start the patient on Levemir tonight. Hopefully can be discharged tomorrow.
[2019-03-24] MEDS ORDERED: INSULIN DETEMIR (LEVEMIR) 100 UNIT/ML SYR SQ SCH (23:15)
[2019-03-24] MEDS ORDERED: MD COMMUNICATION TO PHARMACY 1 EACH MISC PO SCH (23:30)
[2019-03-24] MEDS ORDERED: TRESIBA 30 UNIT SQ SCH (23:45)
[2019-03-25 01:09] LABS: Glucose,Whole Blood 237 mg/dL (75-99)
[2019-03-25] MEDS: IPRATROPIUM-ALBUTEROL 3 ML NEB INHALATION SCH ×4 (02:52→15:41)
[2019-03-25 03:19] LABS: Glucose,Whole Blood 302 mg/dL (75-99)
[2019-03-25 07:19] LABS: Glucose,Whole Blood 365 mg/dL (75-99)
[2019-03-25] MEDS ORDERED: CARVEDILOL 3.125 MG TAB PO SCH (07:30)
[2019-03-25] MEDS: INSULIN ASPART (NovoLOG) 100 UNIT/ML VIAL SQ SCH ×2 (07:31→13:16)
[2019-03-25] MEDS ORDERED: predniSONE 10 MG TAB PO SCH (09:00)
[2019-03-25] MEDS: GABAPENTIN 400 MG CAP PO SCH ×2 (09:30→13:15)
[2019-03-25] MEDS: FUROSEMIDE 40 MG TAB PO SCH (09:30)
[2019-03-25] MEDS: EZETIMIBE 10 MG TAB PO SCH (09:30)
[2019-03-25] MEDS: PRASUGREL 10 MG TAB PO SCH (09:30)
[2019-03-25] MEDS: ASPIRIN 81 MG PO SCH (09:30)
[2019-03-25 09:39] VITALS: RESP 22
[2019-03-25 12:32] LABS: Glucose,Whole Blood 152 mg/dL (75-99)
[2019-03-25] MEDS ORDERED: CEFDINIR 300 MG CAP PO STA (13:53)
[2019-03-25 13:57] VITALS: BP 153/73; PULSE 81; TEMP 97.6
[2019-03-25] MEDS ORDERED: INFLUENZA VACCINE (6 MOS+) 60 MCG/0.5 ML SYRINGE IM ONE (14:36)
--- NOTE | 2019-03-25 15:04 | P.PN ---
Subjective Progress Note Date: 03/25/19 This is a 53-year-old female who follows regularly with Dr. Grace in the office. She has a known history of hypertension, diabetes, hyperlipidemia, peripheral neuropathy, remote history of TIA, history of nicotine dependence, was omitted to the hospital in October of this year to undergo cardiac c atheterization because of an abnormal myocardial perfusion imaging with an anterior wall defect. The patient underwent a cardiac catheterization which revealed calcified coronary arteries with a subtotal occluded mid LAD and moderate significant disease in the RCA, subsequent to that patient underwent successful stenting of a subtotally occluded LAD with reduction of stenosis from 99% to 0%, patient also went into cardiogenic shock at that time with no evidence of tamponade not, she did require mechanical support with an amp however, and multiple bouts of CPR, she was intubated and in the intensive care unit at that time. Patient did have an echo performed on that admission which revealed an ejection fraction of 30-35%. Patient also has a known history of obstructive sleep apnea, obesity, and COPD. He presented to the hospital on this occasion, on the of this month with symptoms of shortness of breath. Her chest x-ray showed new minimal infiltrate or pleural reaction at the left lung base compared with old exam. A soft tissue next x-ray was performed which was negative for cervical soft tissue issues, normal epiglottis, no change compared with prior exam. Blood pressure 108/60 with a heart rate in the 80s, 90% on 2 L of oxygen. White blood cell count 7.0, hemoglobin 11.4, platelet count 275. Sodium 135, potassium 5.3, BUN 55 and creatinine 1.6. Blood glucose on arrival 219, yesterday up to 674, 185 this morning. Magnesium level 2.3. 03/25/2019 Patient seen and examined this morning, breathing is improving. Blood pressure 152/70 with a heart rate of 104, 100% on room air. No lab data today. Echo showed ejection fraction of 55-60% Objective - Vital Signs Vital signs: Vital Signs Temp 97.6 F 03/25/19 12:00 Pulse 104 H 03/25/19 12:24 Resp 22 03/25/19 12:00 BP 153/73 03/25/19 12:00 Pulse Ox 100 03/25/19 12:00 Intake & Output 03/24/19 03/25/1903/25/19 18:59 06:59 18:59 Intake Total 758.117 11.983 480 Output Total 500 Balance 758.117 11.983 -20 Weight 82.4 kg Intake: Intake, IV Titration 38.117 11.983 Amount Insulin Regular 100 unit 38.117 11.983 In Sodium Chloride 0.9% 100 ml @ Titrate IV .Q0M [facility] Rx#:[id number] Oral 720 480 Output: Urine 500 Other: # Voids 1 1 - Exam PHYSICAL EXAMINATION: GENERAL: 43-year-old female in no acute distress at the time of my examination HEENT: Head is atraumatic, normocephalic. Pupils equal, round. Sclera anicteric. Conjunctiva are clear. Mucous membranes of the mouth are moist. Neck is supple. There is no elevated jugular venous pressure. No carotid bruit is heard. HEART EXAMINATION: Heart S1, S2 normal. No murmur or gallop heard. CHEST EXAMINATION: Lungs reveal diminished air entry bilaterally, expiratory wheezing noted. Positive inspiratory stridor ABDOMEN: Soft, nontender. Bowel sounds are heard. No organomegaly noted. EXTREMITIES: 2+ peripheral pulses with no evidence of peripheral edema and no calf tenderness noted. NEUROLOGIC patient is awake, alert and oriented 3 . - Labs CBC & Chem 7: 03/24/19 08:53 03/24/19 08:53 Labs: Abnormal Lab Results - Last 24 Hours (Table) 03/24/19 03/24/19 03/24/19 Range/Units 15:47 16:38 17:25 POC Glucose (mg/dL) 129 H 161 H 180 H (75-99) mg/dL 03/24/19 03/24/19 03/24/19 Range/Units 19:00 20:55 23:02 POC Glucose (mg/dL) 222 H 261 H 138 H (75-99) mg/dL 03/25/19 03/25/19 03/25/19 Range/Units 00:56 03:07 07:15 POC Glucose (mg/dL) 237 H 302 H 365 H (75-99) mg/dL 03/25/19 Range/Units 12:30 POC Glucose (mg/dL) 152 H (75-99) mg/dL Assessment and Plan Plan: Assessment and plan #1 symptoms of shortness of breath, possible exacerbation of COPD and bronchitis. Pulmonary is following with the patient, suspicion for possible vocal cord injury/narrowing/paralysis, bronchoscopy recommended. #2 known history of coronary artery disease with prior LAD stenting and subsequent cardiac arrest requiring Impella support, intubation and mechanical patient in October of this year, patient at that time was also found to have significant disease in the ostium of the right coronary artery . #3 hypertension #4 hyperlipidemia #5 diabetes #6 diabetic neuropathy #7 history of nicotine dependence, quit smoking in 2003 #8 COPD #9 obstructive sleep apnea #10 mild renal insufficiency #11 hyperkalemia Plan Echo with Doppler study was performed which revealed a normal left ventricular systolic function. From cardiology's perspective, patient may be discharged home once cleared by primary. Follow-up appointment with Dr. Grace in the office post discharge. DNP note has been reviewed, I agree with a documented findings and plan of care. Patient was seen and examined.
--- NOTE | 2019-03-30 01:08 | P.DS ---
Providers Date of admission: 03/25/19 09:58 Expected date of discharge: 03/25/19 Attending physician: Maico Blunt Consults: 03/22/19 21:12 Consult Physician Urgent Consulting Provider: Freeman Nelson Consult Reason/Comments: stridor Do you want consulting provider notified?: Already Contacted 03/23/19 10:33 Consult Physician Urgent Consulting Provider: Yusef Wooten Consult Reason/Comments: SOB Do you want consulting provider notified?: Yes 03/23/19 12:53 Consult Physician Routine Consulting Provider: Nadeem Atkinson Consult Reason/Comments: sob Do you want consulting provider notified?: Yes Primary care physician: Noah Finley [facility] Course: Chief Complaint: Short of breath Hospital course: This is a 63-year-old patient of Dr. Finley. Chronic stable medical conditions include hypertension, hyperlipidemia, diabetic peripheral neuropathy.Patient was in the hospital in October 2018 , had a cardiac arrest following LAD angioplasty. Also pulmonary embolism. Patient had to be on the ventilator. Patient also was felt a left vocal cord paralysis probably from intubation. Patient that time also had acute tubular necrosis and also dysphagia with aspiration to thin liquids. improved. Subsequently she was thought to have tracheal stenosis. Patient had followed up at Dr. Nelson's office. Apparently did have an jasson rect laryngoscopy. Results are not available. Patient does not know the results, no illicit followed up. increasingly short of breath. No fever. Minimal chills. Decreased appetite. Slight cough. No sputum. Presents to the ER. Was given steroids bronchodilators admitted for the same. Admitted with acute COPD exacerbation. Responded well to bronchodilator steroids. Doing much better without discharge. Care was discussed with the patient. Questions were answered. Consultation: Dr. Atkinson/Dr. Leslie from pulmonary Physical examination: VITAL SIGNS: 97.6, 81, 22, 153/73, 100% room air GENERAL: Sitting sitting up, much improved EYES: Pupils equal. Conjunctiva normal. HEENT: External appearance of nose and ears normal, oral cavity grossly normal. NECK: JVD not raised; masses not palpable. HEART: First and second heart sounds are normal; no edema. LUNGS: Respiratory rate normal, decreased breath sounds ABDOMEN: Soft, nontender, liver spleen not palpable, no masses palpable. 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 following intubation -History of cardiac arrest following stenting to LAD -Coronary artery disease with stent to LAD -Diabetes mellitus 2 uncontrolled with hyper glycemia on insulin drip secondary to steroids -Essential hypertension -Hyperlipidemia -Diabetic peripheral neuropathy -Left vocal cord paralysis from intubation -Obesity BMI 35 Plan: Disposition home Patient Condition at Discharge: Stable Plan - Discharge Summary Discharge Rx Participant: Yes New Discharge Prescriptions: New Carvedilol [Coreg] 3.125 mg PO BID-W/MEALS #60 tab predniSONE 0 mg PO DIRECTED #12 tab Cefdinir [Omnicef] 300 mg PO Q12HR #10 capsule Continue Aspirin 81 mg PO DAILY chew Prasugrel [Effient] 10 mg PO DAILY tab Lisinopril [Zestril] 5 mg PO DAILY tab Amitriptyline HCl [Elavil] 25 mg PO HS #5 tab INSULIN ASPART (NovoLOG) [NovoLOG (formulary)] See Protocol SQ ACHS Furosemide [Lasix] 40 mg PO DAILY Magnesium Oxide 400 mg PO BID Gabapentin 800 mg PO QID Insulin Degludec [Tresiba] 24 units SQ HS Ipratropium-Albuterol Nebulize [Duoneb 0.5 mg-3 mg/3 ml Soln] 3 ml INHALATION RT-QID PRN #120 ampul.neb PRN Reason: Shortness Of Breath Or Wheezing Ezetimibe [Zetia] 10 mg PO DAILY Budesonide/Formoterol Fumarate [Symbicort 160-4.5 Mcg Inhaler] 2 puff INHALATION RT-BID Discontinued Hydrochlorothiazide [Hydrodiuril] 25 mg PO DAILY Discharge Medication List Amitriptyline HCl [Elavil] 25 mg PO HS #5 tab 10/16/18 [Rx] Aspirin 81 mg PO DAILY chew 10/16/18 [Rx] Lisinopril [Zestril] 5 mg PO DAILY tab 10/16/18 [Rx] Prasugrel [Effient] 10 mg PO DAILY tab 10/16/18 [Rx] Furosemide [Lasix] 40 mg PO DAILY 01/10/19 [History] Gabapentin 800 mg PO QID 01/10/19 [History] INSULIN ASPART (NovoLOG) [NovoLOG (formulary)] See Protocol SQ ACHS 01/10/19 [History] Insulin Degludec [Tresiba] 24 units SQ HS 01/10/19 [History] Magnesium Oxide 400 mg PO BID 01/10/19 [History] Ipratropium-Albuterol Nebulize [Duoneb 0.5 mg-3 mg/3 ml Soln] 3 ml INHALATION RT-QID PRN #120 ampul.neb 01/13/19 [Rx] Budesonide/Formoterol Fumarate [Symbicort 160-4.5 Mcg Inhaler] 2 puff INHALATION RT-BID 03/22/19 [History] Ezetimibe [Zetia] 10 mg PO DAILY 03/22/19 [History] Carvedilol [Coreg] 3.125 mg PO BID-W/MEALS #60 tab 03/25/19 [Rx] Cefdinir [Omnicef] 300 mg PO Q12HR #10 capsule 03/25/19 [Rx] predniSONE 0 mg PO DIRECTED #12 tab 03/25/19 [Rx] Follow up Appointment(s)/Referral(s): Noah Finley DO [Primary Care Provider] - 03/31/19 1:30 pm Freeman Nelson MD [STAFF PHYSICIAN] - 04/03/19 10:00 am Discharge Disposition: HOME SELF-CARE
== END 2019-03-25 15:46 | disposition home or self-care (01) | DRG 191 ==
LOC: EC 18:33 → 3SCARD 21:30 → OBSVTOIN 03-25 09:58
PROVIDERS: ADMIT Hospitalist; ATTEND Hospitalist
DX: J44.1 Chronic obstructive pulmonary disease with (acute) exacerbation (principal); Z16.24 Resistance to multiple antibiotics; E11.42 Type 2 diabetes mellitus with diabetic polyneuropathy; E11.65 Type 2 diabetes mellitus with hyperglycemia; E66.9 Obesity, unspecified; Z68.37 Body mass index [BMI] 37.0-37.9, adult; E78.5 Hyperlipidemia, unspecified; E87.5 Hyperkalemia; G47.33 Obstructive sleep apnea (adult) (pediatric); I11.9 Hypertensive heart disease without heart failure; I25.10 Atherosclerotic heart disease of native coronary artery without angina pectoris; I25.2 Old myocardial infarction; J38.01 Paralysis of vocal cords and larynx, unilateral; T38.0X5A Adverse effect of glucocorticoids and synthetic analogues, initial encounter; Z79.02 Long term (current) use of antithrombotics/antiplatelets; Z79.4 Long term (current) use of insulin; Z79.51 Long term (current) use of inhaled steroids; Z79.82 Long term (current) use of aspirin; Z79.899 Other long term (current) drug therapy; Z83.3 Family history of diabetes mellitus; Z86.73 Personal history of transient ischemic attack (TIA), and cerebral infarction without residual deficits; Z87.891 Personal history of nicotine dependence; Z95.5 Presence of coronary angioplasty implant and graft; Z86.14 Personal history of Methicillin resistant Staphylococcus aureus infection; Z98.42 Cataract extraction status, left eye; Z98.41 Cataract extraction status, right eye; N28.9 Disorder of kidney and ureter, unspecified
CPT/HCPCS: 36415; 70360; 71046; 80048; 82009; 83036; 83735; 83880; 85025; 85027; 85610; 85730; 87070; 87430; 90686; 93306; 94640; 94760; 96365; 96375; 96376; 99285

== ENCOUNTER 2019-05-26 15:16 | Emergency (ER) | payer BC ==
--- NOTE | 2019-05-26 15:38 | ED ---
General Adult HPI - General Chief complaint: ENT Stated complaint: Bleeding from trach Time Seen by Provider: 05/26/19 15:24 Source: patient, EMS Mode of arrival: EMS - History of Present Illness Initial comments: Dictation was produced using [employer] dictation software. please excuse any grammatical, word or spelling errors. Chief Complaint: 63-year-old female presents with tracheostomy site bleeding. History of Present Illness: 63-year-old female she has past medical history of cardiac arrest. Patient states back in October she had a cardiac arrest was intuba viola and placed in the intensive care unit. Today she had a home visiting nurse that was providing general trach care. Back in May 14 patient had a tracheostomy those placed at [facility]. Patient was evaluated by our ENT doctor, Dr. Nelson for need of tracheostomy. She was referred by Dr. Stanley to go to [facility] due to scar tissue formation and possible complicated trach. Patient states she had a laser tracheostomy placement done at [facility]. She was having her usual trach care. In a cannula was removed and replaced. Patient then was noted to have bleeding around the tracheostomy or face and around the site. Family reports that patient is on blood thinners. Bleeding was short lived. Patient feels well at this time. Patient denies any difficulty breathing. No pain at this time. The ROS documented in this emergency department record has been reviewed and confirmed by me. Those systems with pertinent positive or negative responses have been documented in the HPI. All other systems are other negative and/or noncontributory. PHYSICAL EXAM: General Impression: Alert and oriented x3, not in acute distress HEENT: Normocephalic atraumatic, extra-ocular movements intact, pupils equal and reactive to light bilaterally, mucous membranes moist, trach site with saturated dressing. Dressing was removed with no active bleeding at this time. In a cannula was removed showing no active bleeding. Cardiovascular: Heart regular rate and rhythm, S1&S2 audible, no murmurs, rubs or gallops Chest: Lungs clear to auscultation bilaterally, no rhonchi, no wheeze, no rales Abdomen: Bowel sounds present, abdomen soft, non-tender, non-distended, no organomegaly Musculoskeletal: Pulses present and equal in all extremities, no peripheral edema Motor: no focal deficits noted Neurological: CN II-XII grossly intact, no focal motor or sensory deficits noted Skin: Intact with no visualized rashes Psych: Normal affect and mood ED course: 63-year-old female presents tracheostomy site bleeding. Vital signs upon arrival are within acceptable limits. No active bleeding noted at this time. He came in was redrawn without any active bleeding. There is however concerned that there was brisk bleeding that occurred prior to coming to the emergency department.Abdomen evaluation obtained. Hemoglobin stable. Metabolic panel is grossly unremarkable. Patient was observed in emergency department for several hours without any significant bleeding. This patient case with Dr. Pratt, crusher assembler from [facility] performed tracheostomy placement recommends the patient be transferred to [facility] emergency department for ENT evaluation. Discussed patient case with emergency physician Dr. Ceballos who is willing to accept here to ER transfer. She is transferred with bougie and cuffed tracheostomy in the event that patient has increased bleeding at the site. EKG interpretation: Ventricular rate 87, normal sinus rhythm,. 170, care is 80, QTc 440. No VA prolongation, no QTC prolongation, no ST or T-wave changes noted. Overall, this EKG is unremarkable - Related Data Home Medications Medication Instructions Recorded Confirmed Furosemide [Lasix] 40 mg PO DAILY 01/10/19 05/26/19 Gabapentin 800 mg PO QID 01/10/19 05/26/19 INSULIN ASPART (NovoLOG) [NovoLOG See Protocol SQ ACHS 01/10/19 05/26/19 (formulary)] Insulin Degludec [Tresiba] 24 units SQ HS 01/10/19 05/26/19 Ezetimibe [Zetia] 10 mg PO DAILY 03/22/19 05/26/19 Previous Rx's Medication Instructions Recorded Amitriptyline HCl [Elavil] 25 mg PO HS #5 tab 10/16/18 Aspirin 81 mg PO DAILY chew 10/16/18 Lisinopril [Zestril] 5 mg PO DAILY tab 10/16/18 Prasugrel [Effient] 10 mg PO DAILY tab 10/16/18 Carvedilol [Coreg] 3.125 mg PO BID-W/MEALS #60 tab 03/25/19 Allergies Allergy/AdvReac Type Severity Reaction Status Date / Time Aohbtlw-[id number]-Jzz Reductase AdvReac muscle Verified 05/26/19 16:35 Inhibitor pain/breakdown Review of Systems ROS Statement: Those systems with pertinent positive or pertinent negative responses have been documented in the HPI. ROS Other: All systems not noted in ROS Statement are negative. Past Medical History Past Medical History: Coronary Artery Disease (CAD), CVA/TIA, Diabetes Mellitus, Hyperlipidemia, Hypertension Additional Past Medical History / Comment(s): Diabetic peripheral neuropathyongoing, cardiac arrest october, back pain, TIA 2011 no residual, heart murmur-had a stress test, found a "spot"-had a planned heart cath to evaluate-blockage in "widowmaker" and coded during the cath was vented and in ICU Last Myocardial Infarction Date:: unknown History of Any Multi-Drug Resistant Organisms: MRSA Date of last positivie culture/infection: 04/14/2015 MDRO Source:: top of head Past Surgical History: Heart Catheterization With Stent, Tubal Ligation Additional Past Surgical History / Comment(s): bilat cataract surgery Past Anesthesia/Blood Transfusion Reactions: No Reported Reaction Date of Last Stent Placement:: 10/02/18 Past Psychological History: No Psychological Hx Reported Smoking Status: Former smoker Past Alcohol Use History: None Reported Past Drug Use History: None Reported - Past Family History Mother Family Medical History: Dementia, Diabetes Mellitus Father Family Medical History: Diabetes Mellitus, Deep Vein Thrombosis (DVT) Course Vital Signs 05/26/19 05/26/19 15:20 15:30 Temperature 97.9 F Pulse Rate 89 Respiratory 18 16 Rate Blood Pressure 167/105 O2 Sat by Pulse 95 Oximetry Medical Decision Making - Lab Data Result diagrams: 05/26/19 15:47 05/26/19 15:47 Lab Results 05/26/19 05/26/19 Range/Units 15:47 15:47 WBC 10.0 (3.8-10.6) k/uL RBC 4.06 (3.80-5.40) m/uL Hgb 11.5 (11.4-16.0) gm/dL Hct 34.3 (34.0-46.0) % MCV 84.4 (80.0-100.0) fL MCH 28.2 (25.0-35.0) pg MCHC 33.4 (31.0-37.0) g/dL RDW 13.1 (11.5-15.5) % Plt Count 419 (150-450) k/uL Neutrophils % 72 % Lymphocytes % 19 % Monocytes % 4 % Eosinophils % 3 % Basophils % 0 % Neutrophils # 7.2 (1.3-7.7) k/uL Lymphocytes # 1.9 (1.0-4.8) k/uL Monocytes # 0.4 (0-1.0) k/uL Eosinophils # 0.3 (0-0.7) k/uL Basophils # 0.0 (0-0.2) k/uL Sodium 137 (137-145) mmol/L Potassium 4.8 (3.5-5.1) mmol/L Chloride 96 L (98-107) mmol/L Carbon Dioxide 32 H (22-30) mmol/L Anion Gap 9 mmol/L BUN 39 H (7-17) mg/dL Creatinine 1.20 H (0.52-1.04) mg/dL Est GFR (CKD-EPI)AfAm 55 (>60 ml/min/1.73 sqM) Est GFR (CKD-EPI)NonAf 48 (>60 ml/min/1.73 sqM) Glucose 175 H (74-99) mg/dL Calcium 9.8 (8.4-10.2) mg/dL Disposition Clinical Impression: Tracheostomy hemorrhage Disposition: OTHER INSTITUTION NOT DEFINED Condition: Fair Referrals: Noah Finley DO [Primary Care Provider] - 1-2 days Time of Disposition: 16:55 - Out of Hospital Transfer - Req. Specs Out of Hospital Transfer - Requested Specifics: Other Emergency Center ([facility])
[2019-05-26 16:34] LABS: Basophils % (A) 0 %; Eosinophils # (A) 0.3 k/uL (0-0.7); Eosinophils % (A) 3 %; HCT 34.3 % (34.0-46.0); HGB 11.5 gm/dL (11.4-16.0); Lymphocytes # (A) 1.9 k/uL (1.0-4.8); Lymphocytes % (A) 19 %; MCH 28.2 pg (25.0-35.0); MCHC 33.4 g/dL (31.0-37.0); MCV 84.4 fL (80.0-100.0); Mean Platelet Volume 7.6; Monocytes # (A) 0.4 k/uL (0-1.0); Monocytes % (A) 4 %; Neutrophils # (A) 7.2 k/uL (1.3-7.7); Neutrophils % (A) 72 %; Platelet Count 419 k/uL (150-450); RBC 4.06 m/uL (3.80-5.40); RDW 13.1 % (11.5-15.5)
[2019-05-26 16:43] LABS: Calcium 9.8 mg/dL (8.4-10.2); Potassium 4.8 mmol/L (3.5-5.1)
[2019-05-26 16:50] LABS: INR 0.9 (<1.2); Prothrombin Time 9.6 sec (9.0-12.0)
[2019-05-26 16:55] LABS: Partial Thromboplastin Time 21.3 sec (22.0-30.0)
[2019-05-26 17:23] VITALS: BP 174/99; PULSE 87; RESP 17; TEMP 98.5
== END 2019-05-26 17:36 | disposition short-term general hospital (02) ==
LOC: EC 15:16
DX: J95.01 Hemorrhage from tracheostomy stoma (principal); I25.10 Atherosclerotic heart disease of native coronary artery without angina pectoris; E11.42 Type 2 diabetes mellitus with diabetic polyneuropathy; E78.5 Hyperlipidemia, unspecified; I10 Essential (primary) hypertension; Z87.891 Personal history of nicotine dependence; Z88.8 Allergy status to other drugs, medicaments and biological substances; Z79.01 Long term (current) use of anticoagulants; Z79.4 Long term (current) use of insulin; Z79.899 Other long term (current) drug therapy; Z86.14 Personal history of Methicillin resistant Staphylococcus aureus infection; Z95.5 Presence of coronary angioplasty implant and graft; Z86.74 Personal history of sudden cardiac arrest; Z86.73 Personal history of transient ischemic attack (TIA), and cerebral infarction without residual deficits
CPT/HCPCS: 36415; 80048; 85025; 85610; 85730; 93005; 99284

== ENCOUNTER → 2019-10-24 | Outpatient (CLI) | payer BC, MEDICARE | END | disposition home or self-care (01) | LOC: LABWHC1 10:52 | DX: J38.6 Stenosis of larynx (principal); Z93.0 Tracheostomy status | CPT/HCPCS: 87635 ==

== ENCOUNTER 2020-03-04 18:31 | Emergency (ER) | payer MEDICARE ==
[2020-03-04 18:44] VITALS: TEMP 98.1
--- NOTE | 2020-03-04 18:49 | ED ---
Recheck HPI - General Chief Complaint: Recheck/Abnormal Lab/Rx Stated Complaint: Diff Breathing Time Seen by Provider: 03/04/20 18:42 Source: EMS, RN notes reviewed, old records reviewed Mode of arrival: EMS Limitations: no limitations - History of Present Illness Initial Comments: This is a 64-year-old female DF for evaluation of trach problem. Patient presented critically not working correctly, she comes in for evaluation. She was complaining of some mild shortness of breath will resolve. Otherwise no complaints no chest pain or fever MD Complaint: other (Evaluation of trach) Returns Today for: persistent/worsening pain related to initial visit Symptoms Since Prior Visit: no new symptoms Associated Symptoms: none Treatments Prior to Arrival: other (Patient does have trach placed) - Related Data Home Medications Medication Instructions Recorded Confirmed Gabapentin 800 mg PO QID 01/10/19 03/04/20 Ezetimibe [Zetia] 10 mg PO DAILY 03/22/19 03/04/20 Furosemide [Lasix] 40 mg PO DAILY 03/04/20 03/04/20 Insulin Aspart (Niacinamide) 11 units SQ AC-TID 03/04/20 03/04/20 [Fiasp 100 Unit/ml Flextouch] Insulin Glargine,Hum.rec.anlog 100 units SQ HS 03/04/20 03/04/20 [Toucherryo Solostar] carvediloL [Coreg] 3.125 mg PO AC-BID 03/04/20 03/04/20 Previous Rx's Medication Instructions Recorded Aspirin 81 mg PO DAILY chew 10/16/18 Prasugrel [Effient] 10 mg PO DAILY tab 10/16/18 lisinopriL [Zestril] 5 mg PO DAILY tab 10/16/18 Allergies Allergy/AdvReac Type Severity Reaction Status Date / Time [id number]-[id number]-Fme Reductase AdvReac muscle Verified 03/04/20 19:53 Inhibitor pain/breakdown Review of Systems ROS Statement: Those systems with pertinent positive or pertinent negative responses have been documented in the HPI. ROS Other: All systems not noted in ROS Statement are negative. Past Medical History Past Medical History: Coronary Artery Disease (CAD), CVA/TIA, Diabetes Mellitus, Hyperlipidemia, Hypertension Additional Past Medical History / Comment(s): Diabetic peripheral neuropathyongoing, cardiac arrest october, back pain, TIA 2011 no residual, heart murmur-had a stress test, found a "spot"-had a planned heart cath to evaluate-blockage in "widowmaker" and coded during the cath was vented and in ICU Last Myocardial Infarction Date:: unknown History of Any Multi-Drug Resistant Organisms: MRSA Date of last positivie culture/infection: 04/14/2015 MDRO Source:: top of head Past Surgical History: Heart Catheterization With Stent, Tubal Ligation Additional Past Surgical History / Comment(s): bilat cataract surgery, trach inserted Past Anesthesia/Blood Transfusion Reactions: No Reported Reaction Date of Last Stent Placement:: 10/02/18 Past Psychological History: No Psychological Hx Reported Past Alcohol Use History: None Reported Past Drug Use History: None Reported - Past Family History Mother Family Medical History: Dementia, Diabetes Mellitus Father Family Medical History: Diabetes Mellitus, Deep Vein Thrombosis (DVT) General Exam Limitations: no limitations General appearance: alert, in no apparent distress Head exam: Present: atraumatic, normocephalic, normal inspection Eye exam: Present: normal appearance, PERRL, EOMI. Absent: scleral icterus, conjunctival injection, periorbital swelling ENT exam: Present: normal exam, mucous membranes moist Neck exam: Present: normal inspection. Absent: tenderness, meningismus, lymphadenopathy Respiratory exam: Present: normal lung sounds bilaterally. Absent: respiratory distress, wheezes, rales, rhonchi, stridor Cardiovascular Exam: Present: regular rate, normal rhythm, normal heart sounds. Absent: systolic murmur, diastolic murmur, rubs, gallop, clicks GI/Abdominal exam: Present: soft, normal bowel sounds. Absent: distended, tenderness, guarding, rebound, rigid Extremities exam: Present: normal inspection, full ROM, normal capillary refill. Absent: tenderness, pedal edema, joint swelling, calf tenderness Back exam: Present: normal inspection Neurological exam: Present: alert, oriented X3, CN II-XII intact Psychiatric exam: Present: normal affect, normal mood Skin exam: Present: warm, dry, intact, normal color. Absent: rash Course Vital Signs 03/04/20 18:40 Temperature 98.1 F Pulse Rate 75 Respiratory 16 Rate Blood Pressure 143/93 O2 Sat by Pulse 98 Oximetry - Reevaluation(s) Reevaluation #1: 03/04/20 20:24 Back records reviewed Reevaluation #2: 03/04/20 20:24 Patient is in no distress Reevaluation #3: 03/04/20 20:24 Patient had respiratory evaluate patient here in the ER they did do a trach change Medical Decision Making - Medical Decision Making 64 female DF for evaluation, reevaluation of tracheostomy site. Chest x-rays negative, no distress and can be discharged home - Radiology Data Radiology results: report reviewed (Chest x-rays negative for acute disease), image reviewed Disposition Clinical Impression: Dyspnea, Tracheostomy care Disposition: HOME SELF-CARE Condition: Good Instructions (If sedation given, give patient instructions): Tracheostomy Care (ED) Is patient prescribed a controlled substance at d/c from ED?: No Referrals: Noah Finley DO [Primary Care Provider] - 1-2 days
--- NOTE | 2020-03-04 19:55 | XR ---
EXAMINATION TYPE: XR chest 1V DATE OF EXAM: 03/04/2020 COMPARISON: 03/22/2019 HISTORY: Short of breath TECHNIQUE: Single view FINDINGS: There is no heart failure nor confluent pneumonic infiltrate. There is tracheostomy tube. C ostophrenic angles are clear. Exam limited by patient's size. IMPRESSION: No active cardiopulmonary disease. There is apparent clearing of some minimal atelectasis left lung base compared to old exam.
[2020-03-04 20:40] VITALS: BP 119/85; PULSE 72; RESP 20
== END 2020-03-04 20:39 | disposition home or self-care (01) ==
LOC: EC 18:31
DX: R06.02 Shortness of breath (principal); I25.10 Atherosclerotic heart disease of native coronary artery without angina pectoris; E78.5 Hyperlipidemia, unspecified; I10 Essential (primary) hypertension; E11.42 Type 2 diabetes mellitus with diabetic polyneuropathy; Z79.4 Long term (current) use of insulin; Z79.899 Other long term (current) drug therapy; Z93.0 Tracheostomy status; Z88.8 Allergy status to other drugs, medicaments and biological substances; Z86.73 Personal history of transient ischemic attack (TIA), and cerebral infarction without residual deficits; Z86.74 Personal history of sudden cardiac arrest; Z86.14 Personal history of Methicillin resistant Staphylococcus aureus infection
CPT/HCPCS: 71045; 99285

== ENCOUNTER 2020-03-19 22:23 | Inpatient (IN) | payer MEDICARE ==
[2020-03-19] MEDS ORDERED: ASPIRIN 300 MG SUPP RECTAL STA (22:31)
[2020-03-19] MEDS: SODIUM CHLORIDE 0.9% 500 ML 500 ML IV SCH ×2 (22:34→23:32)
[2020-03-19 22:42] LABS: Glucose,Whole Blood 415 mg/dL (75-99)
--- NOTE | 2020-03-19 22:49 | ED ---
CPR HPI - General Chief Complaint: Cardiac Arrest/CPR Stated Complaint: Cardiac Arrest Time Seen by Provider: 03/19/20 22:25 Source: EMS Mode of arrival: EMS Limitations: altered mental status - History of Present Illness Initial Comments: This patient is a 64-year-old woman brought by ambulance after she had what sounds like cardiopulmonary arrest. The patient had been short of breath and her family called EMS. While they were on the phone, the patient became unresponsive and collapsed forward onto bed. Further department arrived and began using [id number] ventilation, and the patient did reportedly have palpable pulses. EMS arrived to find the patient unresponsive and while they were attempting to straighten out the patient's airway, she reportedly went into ventricular fibrillation. She was given 1 mg of epinephrine and had one shock and then they did have ROSC. There is reported to be about total of 10 minutes from the time the patient became unresponsive until ROSC. MD Complaint: collapsed during rest -: minute(s) Place: home Bystander CPR Performed: Yes AED Applied by Bystander/Store Specialist: Yes Shock Advised: Yes Number of Shocks Delivered: 1 Initial Findings in the Field: unresponsive, palpable pulse, no BP ROSC in the Field: Yes Associated Injuries: No Associated Symptoms: shortness of breath Treatments Prior to Arrival: intubation, chest compressions, defibrillated shocks # (1), epinephrine mgs # (1) - Related Data Home Medications Medication Instructions Recorded Confirmed Gabapentin 800 mg PO QID 01/10/19 03/19/20 Ezetimibe [Zetia] 10 mg PO DAILY 03/22/19 03/19/20 Furosemide [Lasix] 40 mg PO DAILY 03/04/20 03/19/20 Insulin Aspart (Niacinamide) 11 units SQ AC-TID 03/04/20 03/19/20 [Fiasp 100 Unit/ml Flextouch] Insulin Glargine,Hum.rec.anlog 100 units SQ HS 03/04/20 03/19/20 [Darrick Fish] carvediloL [Coreg] 3.125 mg PO AC-BID 03/04/20 03/19/20 Previous Rx's Medication Instructions Recorded Aspirin 81 mg PO DAILY chew 10/16/18 Prasugrel [Effient] 10 mg PO DAILY tab 10/16/18 lisinopriL [Zestril] 5 mg PO DAILY tab 10/16/18 Allergies Allergy/AdvReac Type Severity Reaction Status Date / Time Oslbwhw-Ogj-Rry Reductase AdvReac muscle Verified 03/19/20 22:36 Inhibitor pain/breakdown Review of Systems ROS Statement: Those systems with pertinent positive or pertinent negative responses have been documented in the HPI. ROS Other: All systems not noted in ROS Statement are negative. Limitations: ROS unobtainable due to patients medical condition Respiratory: Reports: as per HPI, dyspnea Past Medical History Past Medical History: Coronary Artery Disease (CAD), CVA/TIA, Diabetes Mellitus, Hyperlipidemia, Hypertension Additional Past Medical History / Comment(s): Diabetic peripheral neuropathyongoing, cardiac arrest october, back pain, TIA 2011 no residual, heart murmur-had a stress test, found a "spot"-had a planned heart cath to evaluate-blockage in "widowmaker" and coded during the cath was vented and in ICU Last Myocardial Infarction Date:: unknown History of Any Multi-Drug Resistant Organisms: MRSA Date of last positivie culture/infection: 04/14/2015 MDRO Source:: top of head Past Surgical History: Heart Catheterization With Stent, Tubal Ligation Additional Past Surgical History / Comment(s): bilat cataract surgery, trach inserted Past Anesthesia/Blood Transfusion Reactions: No Reported Reaction Date of Last Stent Placement:: 10/02/18 Past Psychological History: No Psychological Hx Reported Smoking Status: Never smoker Past Alcohol Use History: None Reported Past Drug Use History: None Reported - Past Family History Mother Family Medical History: Dementia, Diabetes Mellitus Father Family Medical History: Diabetes Mellitus, Deep Vein Thrombosis (DVT) General Exam Limitations: no limitations Head exam: Present: atraumatic, normocephalic Eye exam: Present: other (Pupils approximately 4 mm, unreactive). Absent: scleral icterus, conjunctival injection, periorbital swelling, periorbital tenderness ENT exam: Present: normal oropharynx Neck exam: Present: other (Patient does have a tracheostomy). Absent: tenderness Respiratory exam: Present: wheezes, rhonchi. Absent: rales, stridor, decreased breath sounds Cardiovascular Exam: Present: normal rhythm, tachycardia, normal heart sounds. Absent: systolic murmur, diastolic murmur, rubs, gallop GI/Abdominal exam: Present: soft. Absent: distended, tenderness, guarding, rebound, rigid, mass Extremities exam: Present: normal inspection, normal capillary refill. Absent: pedal edema, calf tenderness Back exam: Present: normal inspection. Absent: CVA tenderness (R), CVA tenderness (L) Neurological exam: Present: altered Skin exam: Present: warm, dry, intact, normal color. Absent: rash Course Vital Signs 03/19/20 03/19/20 03/19/20 22:29 22:45 23:00 Temperature 98 F Pulse Rate 109 H 98 100 Respiratory 18 Rate Blood Pressure 122/88 130/76 132/78 O2 Sat by Pulse 100 99 99 Oximetry 03/19/20 03/19/20 03/20/20 23:30 23:45 00:01 Temperature 97.9 F 97.9 F Pulse Rate 80 106 H 93 Respiratory 18 Rate Blood Pressure 144/79 149/89 147/93 O2 Sat by Pulse 99 99 100 Oximetry 03/20/20 03/20/20 03/20/20 00:30 01:00 01:15 Temperature Pulse Rate 100 97 101 H Respiratory Rate Blood Pressure 156/95 158/99 144/89 O2 Sat by Pulse 99 99 100 Oximetry 03/20/20 03/20/20 03/20/20 01:30 01:45 02:00 Temperature Pulse Rate 100 107 H 109 H Respiratory Rate Blood Pressure 150/95 144/82 156/95 O2 Sat by Pulse 99 98 100 Oximetry 03/20/20 03/20/20 02:15 02:45 Temperature Pulse Rate 108 H 90 Respiratory Rate Blood Pressure 157/100 130/78 O2 Sat by Pulse 100 100 Oximetry Procedures - Central Line Placement Right Femoral Consent Obtained: emergent situation Patient Placed on Monitor/Pulse Ox: Yes Prep: mask, gown, gloves Central Line Prep: Chlorhexidine scrub Local Anesthesia Used: Lidocaine 1% Central Line Lumen Inserted: triple Central Line Position: good blood return, all ports aspirated, flushed, capped, sutured in place with nylon Dressing Applied: Tegaderm Patient Tolerated Procedure: well Complications: none Medical Decision Making - Medical Decision Making This patient is a 64-year-old woman ought by ambulance. The patient appears to have had a respiratory arrest at home followed by cardiac arrest with ROSC following 1 dose of epinephrine and 1 defibrillation. The patient is admitted to the ICU here. Case discussed with Dr. Garcia. - Lab Data Result diagrams: 03/20/20 03:33 03/20/20 03:33 Lab Results 03/19/20 03/19/20 03/19/20 Range/Units 22:40 22:43 22:43 WBC 10.1 (3.8-10.6) k/uL RBC 4.73 (3.80-5.40) m/uL Hgb 13.4 (11.4-16.0) gm/dL Hct 43.8 (34.0-46.0) % MCV 92.6 (80.0-100.0) fL MCH 28.4 (25.0-35.0) pg MCHC 30.7 L (31.0-37.0) g/dL RDW 13.6 (11.5-15.5) % Plt Count 293 (150-450) k/uL Neutrophils % 50 % Lymphocytes % 42 % Monocytes % 3 % Eosinophils % 2 % Basophils % 0 % Neutrophils # 5.0 (1.3-7.7) k/uL Lymphocytes # 4.2 (1.0-4.8) k/uL Monocytes # 0.3 (0-1.0) k/uL Eosinophils # 0.2 (0-0.7) k/uL Basophils # 0.1 (0-0.2) k/uL Hypochromasia Marked PT 9.6 (9.0-12.0) sec INR 0.9 (<1.2) APTT 20.1 L (22.0-30.0) sec Sample Site ABG pH (7.35-7.45) ABG pCO2 (35-45) mmHg ABG pO2 (83-108) mmHg ABG HCO3 (21-25) mmol/L ABG Total CO2 (19-24) mmol/L ABG O2 Saturation (94-97) % ABG Base Excess mmol/L Yusef Test FiO2 % Sodium (137-145) mmol/L Potassium (3.5-5.1) mmol/L Chloride (98-107) mmol/L Carbon Dioxide (22-30) mmol/L Anion Gap mmol/L BUN (7-17) mg/dL Creatinine (0.52-1.04) mg/dL Est GFR (CKD-EPI)AfAm (>60 ml/min/1.73 sqM) Est GFR (CKD-EPI)NonAf (>60 ml/min/1.73 sqM) Glucose (74-99) mg/dL POC Glucose (mg/dL) 415 H (75-99) mg/dL POC Glu Gas Charger Ayah Cuello Lactic Ac Sepsis Rflx Plasma Lactic Acid John (0.7-2.0) mmol/L Calcium (8.4-10.2) mg/dL Total Bilirubin (0.2-1.3) mg/dL AST (14-36) U/L ALT (4-34) U/L Alkaline Phosphatase (38-126) U/L Troponin I (0.000-0.034) ng/mL Total Protein (6.3-8.2) g/dL Albumin (3.5-5.0) g/dL Urine Color Urine Appearance (Clear) Urine pH (5.0-8.0) Ur Specific [place] (1.001-1.035) Urine Protein (Negative) Urine Glucose (UA) (Negative) Urine Ketones (Negative) Urine Blood (Negative) Urine Nitrite (Negative) Urine Bilirubin (Negative) Urine Urobilinogen (<2.0) mg/dL Ur Leukocyte Esterase (Negative) Urine RBC (0-5) /hpf Urine WBC (0-5) /hpf Ur Squamous Epith Cells (0-4) /hpf Hyaline Casts (0-2) /lpf Urine Mucus (None) /hpf 03/19/20 03/19/20 03/19/20 Range/Units 22:43 22:43 22:43 WBC (3.8-10.6) k/uL RBC (3.80-5.40) m/uL Hgb (11.4-16.0) gm/dL Hct (34.0-46.0) % MCV (80.0-100.0) fL MCH (25.0-35.0) pg MCHC (31.0-37.0) g/dL RDW (11.5-15.5) % Plt Count (150-450) k/uL Neutrophils % % Lymphocytes % % Monocytes % % Eosinophils % % Basophils % % Neutrophils # (1.3-7.7) k/uL Lymphocytes # (1.0-4.8) k/uL Monocytes # (0-1.0) k/uL Eosinophils # (0-0.7) k/uL Basophils # (0-0.2) k/uL Hypochromasia PT (9.0-12.0) sec INR (<1.2) APTT (22.0-30.0) sec Sample Site ABG pH (7.35-7.45) ABG pCO2 (35-45) mmHg ABG pO2 (83-108) mmHg ABG HCO3 (21-25) mmol/L ABG Total CO2 (19-24) mmol/L ABG O2 Saturation (94-97) % ABG Base Excess mmol/L Yusef Test FiO2 % Sodium 133 L (137-145) mmol/L Potassium 5.8 H (3.5-5.1) mmol/L Chloride 98 (98-107) mmol/L Carbon Dioxide 17 L (22-30) mmol/L Anion Gap 18 mmol/L BUN 42 H (7-17) mg/dL Creatinine 1.81 H (0.52-1.04) mg/dL Est GFR (CKD-EPI)AfAm 33 (>60 ml/min/1.73 sqM) Est GFR (CKD-EPI)NonAf 29 (>60 ml/min/1.73 sqM) Glucose 458 H (74-99) mg/dL POC Glucose (mg/dL) (75-99) mg/dL POC Glu Gas Charger ID Lactic Ac Sepsis Rflx Plasma Lactic Acid John 8.1 H* (0.7-2.0) mmol/L Calcium 9.6 (8.4-10.2) mg/dL Total Bilirubin 0.6 (0.2-1.3) mg/dL AST 64 H (14-36) U/L ALT 25 (4-34) U/L Alkaline Phosphatase 135 H (38-126) U/L Troponin I <0.012 (0.000-0.034) ng/mL Total Protein 8.0 (6.3-8.2) g/dL Albumin 4.4 (3.5-5.0) g/dL Urine Color Urine Appearance (Clear) Urine pH (5.0-8.0) Ur Specific [place] (1.001-1.035) Urine Protein (Negative) Urine Glucose (UA) (Negative) Urine Ketones (Negative) Urine Blood (Negative) Urine Nitrite (Negative) Urine Bilirubin (Negative) Urine Urobilinogen (<2.0) mg/dL Ur Leukocyte Esterase (Negative) Urine RBC (0-5) /hpf Urine WBC (0-5) /hpf Ur Squamous Epith Cells (0-4) /hpf Hyaline Casts (0-2) /lpf Urine Mucus (None) /hpf 03/19/20 03/20/20 03/20/20 Range/Units 23:42 00:46 00:47 WBC (3.8-10.6) k/uL RBC (3.80-5.40) m/uL Hgb (11.4-16.0) gm/dL Hct (34.0-46.0) % MCV (80.0-100.0) fL MCH (25.0-35.0) pg MCHC (31.0-37.0) g/dL RDW (11.5-15.5) % Plt Count (150-450) k/uL Neutrophils % % Lymphocytes % % Monocytes % % Eosinophils % % Basophils % % Neutrophils # (1.3-7.7) k/uL Lymphocytes # (1.0-4.8) k/uL Monocytes # (0-1.0) k/uL Eosinophils # (0-0.7) k/uL Basophils # (0-0.2) k/uL Hypochromasia PT (9.0-12.0) sec INR (<1.2) APTT (22.0-30.0) sec Sample Site ABG pH (7.35-7.45) ABG pCO2 (35-45) mmHg ABG pO2 (83-108) mmHg ABG HCO3 (21-25) mmol/L ABG Total CO2 (19-24) mmol/L ABG O2 Saturation (94-97) % ABG Base Excess mmol/L Yusef Test FiO2 % Sodium (137-145) mmol/L Potassium (3.5-5.1) mmol/L Chloride (98-107) mmol/L Carbon Dioxide (22-30) mmol/L Anion Gap mmol/L BUN (7-17) mg/dL Creatinine (0.52-1.04) mg/dL Est GFR (CKD-EPI)AfAm (>60 ml/min/1.73 sqM) Est GFR (CKD-EPI)NonAf (>60 ml/min/1.73 sqM) Glucose (74-99) mg/dL POC Glucose (mg/dL) 401 H (75-99) mg/dL POC Glu Gas Charger ID Jil Hernandez Lactic Ac Sepsis Rflx Y Plasma Lactic Acid John (0.7-2.0) mmol/L Calcium (8.4-10.2) mg/dL Total Bilirubin (0.2-1.3) mg/dL AST (14-36) U/L ALT (4-34) U/L Alkaline Phosphatase (38-126) U/L Troponin I (0.000-0.034) ng/mL Total Protein (6.3-8.2) g/dL Albumin (3.5-5.0) g/dL Urine Color Yellow Urine Appearance Clear (Clear) Urine pH 5.5 (5.0-8.0) Ur Specific [place] 1.014 (1.001-1.035) Urine Protein 1+ H (Negative) Urine Glucose (UA) 4+ H (Negative) Urine Ketones Negative (Negative) Urine Blood Negative (Negative) Urine Nitrite Negative (Negative) Urine Bilirubin Negative (Negative) Urine Urobilinogen 2.0 (<2.0) mg/dL Ur Leukocyte Esterase Negative (Negative) Urine RBC 1 (0-5) /hpf Urine WBC 1 (0-5) /hpf Ur Squamous Epith Cells <1 (0-4) /hpf Hyaline Casts 1 (0-2) /lpf Urine Mucus Rare H (None) /hpf 03/20/20 Range/Units 01:20 WBC (3.8-10.6) k/uL RBC (3.80-5.40) m/uL Hgb (11.4-16.0) gm/dL Hct (34.0-46.0) % MCV (80.0-100.0) fL MCH (25.0-35.0) pg MCHC (31.0-37.0) g/dL RDW (11.5-15.5) % Plt Count (150-450) k/uL Neutrophils % % Lymphocytes % % Monocytes % % Eosinophils % % Basophils % % Neutrophils # (1.3-7.7) k/uL Lymphocytes # (1.0-4.8) k/uL Monocytes # (0-1.0) k/uL Eosinophils # (0-0.7) k/uL Basophils # (0-0.2) k/uL Hypochromasia PT (9.0-12.0) sec INR (<1.2) APTT (22.0-30.0) sec Sample Site Left Radial ABG pH 7.30 L (7.35-7.45) ABG pCO2 49 H (35-45) mmHg ABG pO2 184 H (83-108) mmHg ABG HCO3 24 (21-25) mmol/L ABG Total CO2 25 H (19-24) mmol/L ABG O2 Saturation 99.9 H (94-97) % ABG Base Excess -2.5 mmol/L Yusef Test Yes FiO2 100 % Sodium (137-145) mmol/L Potassium (3.5-5.1) mmol/L Chloride (98-107) mmol/L Carbon Dioxide (22-30) mmol/L Anion Gap mmol/L BUN (7-17) mg/dL Creatinine (0.52-1.04) mg/dL Est GFR (CKD-EPI)AfAm (>60 ml/min/1.73 sqM) Est GFR (CKD-EPI)NonAf (>60 ml/min/1.73 sqM) Glucose (74-99) mg/dL POC Glucose (mg/dL) (75-99) mg/dL POC Glu Gas Charger ID Lactic Ac Sepsis Rflx Plasma Lactic Acid John (0.7-2.0) mmol/L Calcium (8.4-10.2) mg/dL Total Bilirubin (0.2-1.3) mg/dL AST (14-36) U/L ALT (4-34) U/L Alkaline Phosphatase (38-126) U/L Troponin I (0.000-0.034) ng/mL Total Protein (6.3-8.2) g/dL Albumin (3.5-5.0) g/dL Urine Color Urine Appearance (Clear) Urine pH (5.0-8.0) Ur Specific [place] (1.001-1.035) Urine Protein (Negative) Urine Glucose (UA) (Negative) Urine Ketones (Negative) Urine Blood (Negative) Urine Nitrite (Negative) Urine Bilirubin (Negative) Urine Urobilinogen (<2.0) mg/dL Ur Leukocyte Esterase (Negative) Urine RBC (0-5) /hpf Urine WBC (0-5) /hpf Ur Squamous Epith Cells (0-4) /hpf Hyaline Casts (0-2) /lpf Urine Mucus (None) /hpf Disposition Clinical Impression: Cardiac arrest, Hyperglycemia, Lactic acidosis Disposition: ADMITTED IP TO THIS HOSP Condition: Critical
[2020-03-19] MEDS ORDERED: INSULIN REGULAR 100 UNIT/ML VIAL SQ STA (22:50)
[2020-03-19 23:22] LABS: Basophils # (A) 0.1 k/uL (0-0.2); Basophils % (A) 0 %; Eosinophils # (A) 0.2 k/uL (0-0.7); Eosinophils % (A) 2 %; HCT 43.8 % (34.0-46.0); HGB 13.4 gm/dL (11.4-16.0); Hypochromasia Marked; Lymphocytes # (A) 4.2 k/uL (1.0-4.8); Lymphocytes % (A) 42 %; MCH 28.4 pg (25.0-35.0); MCHC 30.7 g/dL (31.0-37.0); MCV 92.6 fL (80.0-100.0); Mean Platelet Volume 8.4; Monocytes # (A) 0.3 k/uL (0-1.0); Monocytes % (A) 3 %; Neutrophils % (A) 50 %; Platelet Count 293 k/uL (150-450); RBC 4.73 m/uL (3.80-5.40); RDW 13.6 % (11.5-15.5); WBC 10.1 k/uL (3.8-10.6)
--- NOTE | 2020-03-19 23:28 | XR ---
EXAMINATION TYPE: XR chest 1V portable DATE OF EXAM: 03/19/2020 COMPARISON: 03/04/2020 HISTORY: Fever. Cardiac arrest. TECHNIQUE: FINDINGS: There is tracheostomy tube. There is pulmonary vascular congestion. There is some fluid in the right minor fissure. Heart is borderline enlarged. There are chest leads. IMPRESSION: Pulmonary congestion increased compared to old exam and consistent with congestive heart failure. No asymmetric pulmonary infiltrate.
[2020-03-19] MEDS ORDERED: LORazepam 2 MG/ML INJ IV STA (23:32)
[2020-03-19 23:36] LABS: INR 0.9 (<1.2); Prothrombin Time 9.6 sec (9.0-12.0)
--- NOTE | 2020-03-19 23:36 | CT ---
EXAMINATION TYPE: CT brain wo con DATE OF EXAM: 03/19/2020 COMPARISON: 04/14/2015 HISTORY: ams CT DLP: 1048.4 mGycm Automated exposure control for dose reduction was used. Ventricles have normal size. There is no mass effect nor midline shift. There is no sign of intracran ial hemorrhage. There is minimal cerebral atrophy. The calvarium is intact. Skull base is intact. IMPRESSION: Negative CT scan of the brain. No adverse change compared to old exam. There is clearing of the right posterior frontal scalp hematoma compared to old exam.
[2020-03-19 23:41] LABS: Albumin 4.4 g/dL (3.5-5.0); Calcium 9.6 mg/dL (8.4-10.2); Potassium 5.8 mmol/L (3.5-5.1); Total Bilirubin 0.6 mg/dL (0.2-1.3)
[2020-03-19] MEDS ORDERED: SODIUM CHLORIDE 0.9% 1,000 ML IV ONE (23:44)
[2020-03-19 23:50] LABS: Partial Thromboplastin Time 20.1 sec (22.0-30.0)
[2020-03-20 00:49] LABS: Glucose,Whole Blood 401 mg/dL (75-99)
[2020-03-20 01:04] LABS: Appearance,Urine Clear (Clear); Bilirubin,Urine Negative (Negative); Blood,Urine Negative (Negative); Color,Urine Yellow; Glucose,Urine (UA) 4+ (Negative); Hyaline Casts,Urine 1 /lpf (0-2); Ketones,Urine Negative (Negative); Leukocyte Esterase,Urine Negative (Negative); Mucus,Urine Rare /hpf; Nitrite,Urine Negative (Negative); PH, Urine 5.5 (5.0-8.0); Protein,Urine 1+ (Negative); RBC,Urine 1 /hpf (0-5); Specific Gravity,Urine 1.014 (1.001-1.035); Squamous Epithelial Cell,Urine <1 /hpf (0-4); WBC,Urine 1 /hpf (0-5)
[2020-03-20 01:22] LABS: ABG Base Excess -2.5 mmol/L; ABG HCO3 24 mmol/L (21-25); ABG Oxygen Saturation 99.9 % (94-97); ABG PCO2 49 mmHg (35-45); ABG PO2 184 mmHg (83-108); ABG TCO2 25 mmol/L (19-24); Allen Test Performed? Yes
[2020-03-20] MEDS ORDERED: NALOXONE 0.4 MG/ML 1 ML VIAL IV PRN ×2 (01:26→05:17)
[2020-03-20] MEDS: SODIUM CHLORIDE 0.9% 1,000 ML IV SCH ×3 (01:59→18:13)
[2020-03-20] MEDS ORDERED: FAMOTIDINE 20 MG/2 ML VIAL IV SCH (02:00)
[2020-03-20] MEDS: MORPHINE SULFATE 4 MG/ML SYRINGE IV PRN (02:16)
--- NOTE | 2020-03-20 02:16 | XR ---
EXAM: XR Chest, 1 View CLINICAL HISTORY: ITS.REASON XR Reason: NG insertion TECHNIQUE: Frontal view of the chest. COMPARISON: CXR 03/19/20. FINDINGS: Lungs: Bilateral interstitial and groundglass opacities, without significant interval change. Pleural space: No large pleural effusion; layering effusions not excluded. No pneumothorax. Heart: Stable heart size which appears within normal limits given AP projection. Pulmonary vascular congestion, unchanged. Mediastinum: Unremarkable. Bones/joints: Regional skeleton appears intact. Tubes, lines and devices: Tracheostomy tube in place. Enteric tube extends to the stomach and beyond the [id number]. Pacer pad projects over the right chest wall. IMPRESSION: 1. Stable appearance of the lung benítez suggesting congestive heart failure. Intercurrent pneumonia not excluded. 2. Tracheostomy tube remains in place. 3. Interval placement of enteric tube extending to the stomach and beyond the [id number].
[2020-03-20 03:18] LABS: Glucose,Whole Blood 251 mg/dL (75-99)
[2020-03-20] MEDS: NOREPINEPHRINE 4 MG in SODIUM CHLORIDE 0.9% 250 ML IV SCH ×2 (03:59→18:14)
[2020-03-20 04:15] LABS: Basophils % (A) 0 %; Eosinophils % (A) 0 %; HCT 34.5 % (34.0-46.0); HGB 11.1 gm/dL (11.4-16.0); Hypochromasia Slight; Lymphocytes # (A) 0.5 k/uL (1.0-4.8); Lymphocytes % (A) 5 %; MCH 28.9 pg (25.0-35.0); MCHC 32.2 g/dL (31.0-37.0); MCV 89.9 fL (80.0-100.0); Mean Platelet Volume 8.3; Monocytes # (A) 0.4 k/uL (0-1.0); Monocytes % (A) 3 %; Neutrophils # (A) 10.7 k/uL (1.3-7.7); Neutrophils % (A) 92 %; Platelet Count 215 k/uL (150-450); RBC 3.83 m/uL (3.80-5.40); RDW 13.7 % (11.5-15.5); WBC 11.6 k/uL (3.8-10.6)
[2020-03-20 04:20] LABS: Calcium 8.3 mg/dL (8.4-10.2); Potassium 5.1 mmol/L (3.5-5.1)
[2020-03-20 04:48] LABS: Glucose,Whole Blood 241 mg/dL (75-99)
[2020-03-20] MEDS: INSULIN ASPART (NovoLOG) 100 UNIT/ML VIAL SQ SCH ×6 (05:12→23:22)
--- NOTE | 2020-03-20 07:05 | XR ---
EXAMINATION TYPE: XR chest 1V portable DATE OF EXAM: 03/20/2020 COMPARISON: 03/20/2020 HISTORY: Shortness of breath TECHNIQUE: Single frontal view of the chest is obtained. FINDINGS: NG tube and tracheostomy tube stable. Diffuse interstitial pattern with bilateral consolid ation and effusion. Sizable pneumothorax. Heart size stable. IMPRESSION: Stable pleural-parenchymal changes. Differential diagnosis includes CHF. Pneumonia not e xcluded..
[2020-03-20 07:25] LABS: ABG Base Excess -3.1 mmol/L; ABG HCO3 22 mmol/L (21-25); ABG PCO2 38 mmHg (35-45); ABG PH 7.37 (7.35-7.45); ABG PO2 236 mmHg (83-108); ABG TCO2 23 mmol/L (19-24); Allen Test Performed? Yes
[2020-03-20] MEDS: carvediloL 3.125 MG TAB PO SCH ×2 (08:01→09:34)
[2020-03-20 09:45] LABS: Glucose,Whole Blood 285 mg/dL (75-99)
[2020-03-20] MEDS: HEPARIN SODIUM,PORCINE 5,000 UNIT/ML 1 ML VIAL SQ SCH ×3 (09:49→23:28)
[2020-03-20] MEDS: CHLORHEXIDINE GLUCONATE 15 ML CUP MUCOUS MEM SCH ×2 (09:49→20:15)
[2020-03-20] MEDS: GABAPENTIN 400 MG CAP PO SCH ×4 (09:50→20:15)
[2020-03-20] MEDS: PRASUGREL 10 MG TAB PO SCH (09:50)
[2020-03-20] MEDS: ASPIRIN 81 MG PO SCH (09:50)
[2020-03-20] MEDS: lisinopriL 5 MG TAB PO SCH (09:50)
[2020-03-20] MEDS: EZETIMIBE 10 MG TAB PO SCH (09:51)
[2020-03-20] MEDS: PANTOPRAZOLE 40 MG/10 ML VIAL IVP SCH (10:28)
[2020-03-20] MEDS: PIPERACILLIN-TAZOBACTAM 3.375 GM in SODIUM CHLORIDE 0.9% 100 ML IVPB SCH ×3 (10:58→23:28)
[2020-03-20 11:44] LABS: Glucose,Whole Blood 252 mg/dL (75-99)
--- NOTE | 2020-03-20 12:59 | P.CNPUL ---
History of Present Illness Consult date: 03/20/20 Requesting physician: Maico Blunt Reason for consult: other (Acute hypoxic respiratory failure and cardiopulmonary arrest.) Chief complaint: Cardiac arrest History of present illness: This is a 64-year-old female with history of multiple medical problems including coronary artery disease, previous cardiac arrest, going back to Oct 02 2018. Patient was having elective cardiac catheterization and she was found to have a mid LAD lesion. During the procedure, patient went into cardiac arrest, and angioplasty was performed. However patient developed profound hypotension and went into pulseless electrical activity. Patient continues to have on and off hypotension and cardiac arrest for approximately 60 minutes in the [employer]. During this time the patient had LAD stented she was resuscitated, emPella device was used, and she was eventually transferred to the intensive care unit, seen by Dr. Atkinson on consultation. Patient had a prolonged course of intubation and mechanical ventilation, she was eventually discharged on 10/17/19. At that time patient had systolic dysfunction with ejection fraction of 35%. She also had episodes of COPD exacerbation, and she was also noted to have a left vocal cord paralysis, likely related to her intubation. Patient was eventually discharged to [facility], and she continues to have intermittent episodes of stridor. Seen last as inpatient by Dr. Atkinson on 03/23/2019, at the time she was having shortness of breath with inspiratory stridor. And again this was felt to be related to her vocal cord injury/paralysis. Eventually, the patient ended up with a tracheostomy in place, this was supposedly done on outpatient basis. Patient has been following with Dr. Nelson's/ENT for her vocal cord paralysis. Her tracheostomy was done on May 14 2019 at the [facility]. Last night the patient was brought into the ER by EMS, patient apparently had a cardiopulmonary arrest. EMS arrived to the scene, patient was unresponsive, apparently she collapsed forward onto bed, patient was Ambu bag, and she was pulseless. Reportedly she went into ventricular fibrillation, she was given 1 mg of epinephrine, and she was shocked once. CPR was roughly lasted 5 minutes, and there was return of spontaneous circulation after 1 epinephrine and 1 shock. Patient was brought into the ER, unresponsive, and an endotracheal tube was placed in the tracheostomy site by EMS, and this was later changed by the ER physician to a tracheostomy connected to mechanical ventilation, patient was admitted to the ICU, and I was asked to see her on consultation. Patient is unresponsive. She is only responding to very deep painful stimuli. CT of the brain was negative. Patient is now on mechanical ventilation with assist control rate of 18 tidal volume is 400 FiO2 is down to 50% and PEEP is at 5. ABG post intubation showed a pO2 of 236 pCO2 of 38 pH of 7.37. Patient is on norepinephrine at 0.03 mcg/kg/m, propofol at 20 mcg/kg/m, IV fluids running at 150 mL per hour, she is on GI and DVT prophylaxis, she is also on Zosyn empirically, and I went ahead and placed a right radial arterial line for hemodynamic monitoring. Neurology consultation is pending. Lactic acid on admission was 8.1, follow-up lactic acid this morning is 1.6. Troponin went up from 0.012 up to 0.085. CBC is relatively normal. PT PTT and INR are normal. Chest x-ray this morning showed stable pleural parenchymal changes, difficult to tell whether the patient has underlying pneumonia or congestive heart failure. EKG this morning showed sinus tachycardia right bundle branch block, and possible old inferior wall MO. Cardiology consultation is pending. Review of Systems ROS unobtainable: due to endotracheal tube Past Medical History Past Medical History: Coronary Artery Disease (CAD), CVA/TIA, Diabetes Mellitus, Hyperlipidemia, Hypertension Additional Past Medical History / Comment(s): Diabetic peripheral neuropathyongoing, cardiac arrest october, back pain, TIA 2011 no residual, heart murmur-had a stress test, found a "spot"-had a planned heart cath to evaluate-blockage in "widowmaker" and coded during the cath was vented and in ICU Last Myocardial Infarction Date:: unknown History of Any Multi-Drug Resistant Organisms: MRSA Date of last positivie culture/infection: 04/14/2015 MDRO Source:: top of head Past Surgical History: Heart Catheterization With Stent, Tubal Ligation Additional Past Surgical History / Comment(s): bilat cataract surgery, trach inserted Past Anesthesia/Blood Transfusion Reactions: No Reported Reaction Date of Last Stent Placement:: 10/02/18 Past Psychological History: No Psychological Hx Reported Smoking Status: Never smoker Past Alcohol Use History: None Reported Past Drug Use History: None Reported - Past Family History Mother Family Medical History: Dementia, Diabetes Mellitus Father Family Medical History: Diabetes Mellitus, Deep Vein Thrombosis (DVT) Medications and Allergies Home Medications Medication Instructions Recorded Confirmed Type Aspirin 81 mg PO DAILY chew 10/16/18 03/19/20 Rx Prasugrel [Effient] 10 mg PO DAILY tab 10/16/18 03/19/20 Rx lisinopriL [Zestril] 5 mg PO DAILY tab 10/16/18 03/19/20 Rx Gabapentin 800 mg PO QID 01/10/19 03/19/20 History Ezetimibe [Zetia] 10 mg PO DAILY 03/22/19 03/19/20 History Furosemide [Lasix] 40 mg PO DAILY 03/04/20 03/19/20 History Insulin Aspart (Niacinamide) 11 units SQ AC-TID 03/04/20 03/19/20 History [Fiasp 100 Unit/ml Flextouch] Insulin Glargine,Hum.rec.anlog 100 units SQ HS 03/04/20 03/19/20 History [Toujeo Solostar] carvediloL [Coreg] 3.125 mg PO AC-BID 03/04/20 03/19/20 History Allergies Allergy/AdvReac Type Severity Reaction Status Date / Time [id number]-[id number] Reductase AdvReac muscle Verified 03/19/20 22:36 Inhibitor pain/breakdown Physical Exam Vitals: Vital Signs Temp Pulse Resp BP Pulse Ox 03/20/20 11:00 64 18 97 03/20/20 10:30 66 23 157/99 100 03/20/20 10:00 57 L 22 110/67 100 03/20/20 09:30 57 L 18 112/69 100 03/20/20 09:00 53 L 18 109/69 100 03/20/20 08:30 53 L 18 104/64 100 03/20/20 08:00 97.7 F 54 L 18 116/71 100 03/20/20 07:30 54 L 18 108/65 100 03/20/20 07:00 54 L 18 103/64 100 03/20/20 06:00 55 L 18 99/63 100 03/20/20 05:00 54 L 18 94/61 100 03/20/20 04:00 97.6 F 57 L 18 98/62 100 03/20/20 03:30 67 18 74/49 99 10/17/20 02:45 90 130/78 100 10/17/20 02:15 108 H 157/100 100 03/20/20 02:00 109 H 156/95 100 03/20/20 01:45 107 H 144/82 98 03/20/20 01:30 100 150/95 99 03/20/20 01:15 101 H 144/89 100 03/20/20 01:00 97 158/99 99 03/20/20 00:30 100 156/95 99 03/20/20 00:01 97.9 F 93 18 147/93 100 03/19/20 23:45 97.9 F 106 H 149/89 99 03/19/20 23:30 80 144/79 99 03/19/20 23:00 100 132/78 99 03/19/20 22:45 98 130/76 99 03/19/20 22:29 98 F 109 H 18 122/88 100 Intake and Output 03/19/20 03/20/20 03/20/20 22:59 06:59 14:59 Intake Total 1568.067 618.868 Output Total 430 200 Balance 1138.067 418.868 Intake: IV 400 Piperacillin-Tazobactam 3 100 .375 gm In Sodium Chloride 0.9% 100 ml @ 25 mls/hr IVPB Q8HR [facility] Rx# :[id number] Sodium Chloride 0.9% 1, 300 000 ml @ 75 mls/hr IV . [id number] [facility] Rx#:[id number] Intake, IV Titration 1568.067 218.868 Amount Norepinephrine 4 mg In 48.067 46.213 Sodium Chloride 0.9% 250 ml @ 0.05 MCG/KG/MIN 24. 195 mls/hr IV .[id number] [facility] Rx#:[id number] Sodium Chloride 0.9% 1, 520 130 000 ml @ 75 mls/hr IV . [id number] [facility] Rx#:[id number] Sodium Chloride 0.9% 1, 1000 000 ml @ 999 mls/hr IV . Q1H1M [facility] Rx#:[id number] propofoL 1,000 mg In 42.655 Empty Bag 1 bag @ Titrate IV .Q0M [facility] Rx#: [id number] Output: Urine 430 200 Uretheral (López) 250 Other: Voiding Method Indwelling Catheter Weight 127.006 kg 95 kg ABP, PAP, CO, CI - Last 8 Hours Arterial Blood Pressure 121/62 Arterial Blood Pressure 146/73 Gen.: Revealed a 64-year-old female on mechanical ventilation, in no distress, withdraws only to deep painful stimuli. Head exam: Atraumatic, normocephalic. Eye exam: Pinpoint pupils, minimal periorbital edema, no icterus, ENT exam: Dry mucous membranes, tracheostomy tube is intact. Orogastric tube is intact. Neck exam: Supple, no neck masses, tracheostomy is intact. Respiratory exam: Diminished breath sounds at the bases crackles and rhonchi bilaterally. Cardiovascular Exam: Normal S1 and S2, no S3 gallop. GI/Abdominal exam: Flat, soft, nontender, no megaly, no rebound, no guarding. Extremities exam: No clubbing, trace of edema, no cyanosis. Good pulses bilaterally. Neurological exam: Patient is unresponsive to any stimuli except withdrawal from deep painful stimuli. Pupils are pinpoint. Skin exam: No rashes Results - Laboratory Findings CBC and BMP: 03/20/20 03:33 03/20/20 03:33 ABG ABG pH 7.37 (7.35-7.45) 03/20/20 07:14 ABG pCO2 38 mmHg (35-45) 03/20/20 07:14 ABG pO2 236 mmHg (83-108) H 03/20/20 07:14 ABG O2 Saturation 100.0 % (94-97) H 03/20/20 07:14 PT/INR, D-dimer PT 9.6 sec (9.0-12.0) 03/19/20 22:43 INR 0.9 (<1.2) 03/19/20 22:43 Abnormal lab findings: Abnormal Labs 03/19/20 03/19/20 03/19/20 22:40 22:43 22:43 WBC Hgb MCHC 30.7 L Neutrophils # Lymphocytes # APTT 20.1 L ABG pH ABG pCO2 ABG pO2 ABG Total CO2 ABG O2 Saturation Sodium Potassium Chloride Carbon Dioxide BUN Creatinine Glucose POC Glucose (mg/dL) 415 H Plasma Lactic Acid John Calcium AST Alkaline Phosphatase Troponin I Urine Protein Urine Glucose (UA) Urine Mucus 03/19/20 03/19/20 03/20/20 22:43 22:43 00:46 WBC Hgb MCHC Neutrophils # Lymphocytes # APTT ABG pH ABG pCO2 ABG pO2 ABG Total CO2 ABG O2 Saturation Sodium 133 L Potassium 5.8 H Chloride Carbon Dioxide 17 L BUN 42 H Creatinine 1.81 H Glucose 458 H POC Glucose (mg/dL) 401 H Plasma Lactic Acid John 8.1 H* Calcium AST 64 H Alkaline Phosphatase 135 H Troponin I Urine Protein Urine Glucose (UA) Urine Mucus 03/20/20 03/20/20 03/20/20 00:47 01:20 02:12 WBC Hgb MCHC Neutrophils # Lymphocytes # APTT ABG pH 7.30 L ABG pCO2 49 H ABG pO2 184 H ABG Total CO2 25 H ABG O2 Saturation 99.9 H Sodium Potassium Chloride Carbon Dioxide BUN Creatinine Glucose POC Glucose (mg/dL) Plasma Lactic Acid John Calcium AST Alkaline Phosphatase Troponin I 0.056 H* Urine Protein 1+ H Urine Glucose (UA) 4+ H Urine Mucus Rare H 03/20/20 03/20/20 03/20/20 03:16 03:33 03:33 WBC Hgb MCHC Neutrophils # Lymphocytes # APTT ABG pH ABG pCO2 ABG pO2 ABG Total CO2 ABG O2 Saturation Sodium Potassium Chloride Carbon Dioxide BUN Creatinine Glucose POC Glucose (mg/dL) 251 H Plasma Lactic Acid John 2.1 H* Calcium AST Alkaline Phosphatase Troponin I 0.085 H* Urine Protein Urine Glucose (UA) Urine Mucus 03/20/20 03/20/20 03/20/20 03:33 03:33 04:46 WBC 11.6 H Hgb 11.1 L MCHC Neutrophils # 10.7 H Lymphocytes # 0.5 L APTT ABG pH ABG pCO2 ABG pO2 ABG Total CO2 ABG O2 Saturation Sodium Potassium Chloride 109 H Carbon Dioxide 21 L BUN 44 H Creatinine 1.79 H Glucose 254 H POC Glucose (mg/dL) 241 H Plasma Lactic Acid John Calcium 8.3 L AST Alkaline Phosphatase Troponin I Urine Protein Urine Glucose (UA) Urine Mucus 03/20/20 03/20/20 03/20/20 07:14 09:43 11:43 WBC Hgb MCHC Neutrophils # Lymphocytes # APTT ABG pH ABG pCO2 ABG pO2 236 H ABG Total CO2 ABG O2 Saturation 100.0 H Sodium Potassium Chloride Carbon Dioxide BUN Creatinine Glucose POC Glucose (mg/dL) 285 H 252 H Plasma Lactic Acid John Calcium AST Alkaline Phosphatase Troponin I Urine Protein Urine Glucose (UA) Urine Mucus - Diagnostic Findings Chest x-ray: image reviewed (As noted in HPI.) Additional studies: CT of the brain showed no active disease. Assessment and Plan Assessment: Impression: Cardiac arrest, patient is known to have history of underlying coronary artery disease and underlying ischemic cardiomyopathy. Her cardiac presentation was mostly a presentation of ventricular fibrillation and pulseless electric activity as documented by EMS on site. Acute hypoxic respiratory failure secondary to cardiac arrest. Possible aspiration pneumonia. Suspect mild acute systolic congestive heart failure. Secondary to ischemic cardiomyopathy and LV dysfunction. History of vocal cord paralysis and tracheostomy. History of COPD, patient quit smoking in 2003. History of coronary artery disease with previous cardiac intervention and stenting of LAD and she is post cardiac arrest at the time of the cardiac catheterization. Benign essential hypertension. Diabetic peripheral neuropathy. Suspect anoxic brain injury. Recommendation: Continue ventilatory support, and her ventilator settings were adjusted accordingly. Continue bronchodilators. Continue IV Solu-Medrol. GI and DVT prophylaxis. Neurology to see on consultation. Cardiology to see her on consultation. Start enteral feeding and nutritional support. Prognosis is definitely poor and guarded, patient is yet to be seen by neurology for further evaluation of her anoxic brain injury. We'll continue to follow. Time with Patient: Greater than 30
[2020-03-20] MEDS: methylPREDNISolone SOD SUCCI 40 MG/ML 1 ML VIAL IV SCH ×3 (13:05→23:28)
--- NOTE | 2020-03-20 14:29 | PCN ---
PROCEDURE NOTE PROCEDURE PERFORMED: Placement of a right radial arterial line. PREOPERATIVE DIAGNOSIS: Acute cardiac arrest, and hypotension. POSTOPERATIVE DIAGNOSIS: Acute cardiac arrest, and hypotension. ANESTHESIA: None deployed. PROCEDURE DETAILS: Right wrist was prepared in a sterile fashion. Drapes were applied. The right radial artery was palpated, cannulated, and a guidewire was placed. A Cook's catheter was inserted over the guidewire, the guidewire was removed. Good blood flow and good waveform noted, no evidence of any immediate complications. Line was secured using 3.0 silk sutures. MMODL / IJN: [id number] /
[2020-03-20] MEDS: IPRATROPIUM-ALBUTEROL 3 ML NEB INHALATION PRN ×2 (14:54→19:40)
[2020-03-20 16:41] LABS: Glucose,Whole Blood 61 mg/dL (75-99)
[2020-03-20] MEDS ORDERED: DEXTROSE 50% SYRINGE 50 ML IVP ONE (16:44)
[2020-03-20 17:05] LABS: Glucose,Whole Blood 196 mg/dL (75-99)
--- NOTE | 2020-03-20 17:58 | P.CRDCN ---
History of Present Illness History of present illness: This is a 64-year-old femalewith history of coronary artery disease with history of cardiac arrest in October 2018. While having cardiac intervention for a lesion in the mid LAD. Patient had prolonged course in the hospital. Patient was living in an extended care facility. Patient has had problems with the stridor and also vocal cord paralysis. Had a tracheostomy done. Patient is brought this time to the hospital with a cardiac arrest. Patient had CPR and was given IV epinephrine and shock. Apparently CPR lasted about 5 minutes. Patient regained pulse.Currently patient is intubated and sedated. Her troponin went mildly up. Patient currently is unresponsive . Her LV function was moderately impaired with ejection fraction 35%, in the past. We'll obtain repeat echocardiogram. If patient regains her mental status, patient may be a candidate for AICD implantation. Neurology is following closely. Further recommendations depend upon the critical course. EKG showed sinus tachycardia with right bundle-branch blockwith questionable old inferior wall CT Review of Systems not obtained Past Medical History Past Medical History: Coronary Artery Disease (CAD), CVA/TIA, Diabetes Mellitus, Hyperlipidemia, Hypertension Additional Past Medical History / Comment(s): Diabetic peripheral neuropathyongoing, cardiac arrest october, back pain, TIA 2011 no residual, heart murmur-had a stress test, found a "spot"-had a planned heart cath to evaluate-blockage in "widowmaker" and coded during the cath was vented and in ICU Last Myocardial Infarction Date:: unknown History of Any Multi-Drug Resistant Organisms: MRSA Date of last positivie culture/infection: 04/14/2015 MDRO Source:: top of head Past Surgical History: Heart Catheterization With Stent, Tubal Ligation Additional Past Surgical History / Comment(s): bilat cataract surgery, trach inserted Past Anesthesia/Blood Transfusion Reactions: No Reported Reaction Date of Last Stent Placement:: 10/02/18 Past Psychological History: No Psychological Hx Reported Smoking Status: Never smoker Past Alcohol Use History: None Reported Past Drug Use History: None Reported - Past Family History Mother Family Medical History: Dementia, Diabetes Mellitus Father Family Medical History: Diabetes Mellitus, Deep Vein Thrombosis (DVT) Medications and Allergies Home Medications Medication Instructions Recorded Confirmed Type Aspirin 81 mg PO DAILY chew 10/16/18 03/19/20 Rx Prasugrel [Effient] 10 mg PO DAILY tab 10/16/18 03/19/20 Rx lisinopriL [Zestril] 5 mg PO DAILY tab 10/16/18 03/19/20 Rx Gabapentin 800 mg PO QID 01/10/19 03/19/20 History Ezetimibe [Zetia] 10 mg PO DAILY 03/22/19 03/19/20 History Furosemide [Lasix] 40 mg PO DAILY 03/04/20 03/19/20 History Insulin Aspart (Niacinamide) 11 units SQ AC-TID 03/04/20 03/19/20 History [Fiasp 100 Unit/ml Flextouch] Insulin Glargine,Hum.rec.anlog 100 units SQ HS 03/04/20 03/19/20 History [Toukelsy Solostsunshine] carvediloL [Coreg] 3.125 mg PO AC-BID 03/04/20 03/19/20 History Allergies Allergy/AdvReac Type Severity Reaction Status Date / Time Umnofxj-Qiv-Umb Reductase AdvReac muscle Verified 03/19/20 22:36 Inhibitor pain/breakdown Physical Exam Vitals: Vital Signs Temp Pulse Resp BP Pulse Ox 03/20/20 15:10 52 L 03/20/20 15:00 52 L 18 100 03/20/20 14:54 52 L 03/20/20 14:30 51 L 18 100 03/20/20 14:00 51 L 18 100 03/20/20 13:30 51 L 18 100 03/20/20 13:00 51 L 18 100 03/20/20 12:30 51 L 18 112/65 100 03/20/20 12:00 97.7 F 51 L 18 122/71 100 03/20/20 11:30 55 L 18 122/71 99 03/20/20 11:00 64 18 97 03/20/20 10:30 66 23 157/99 100 03/20/20 10:00 57 L 22 110/67 100 03/20/20 09:30 57 L 18 112/69 100 03/20/20 09:00 53 L 18 109/69 100 03/20/20 08:30 53 L 18 104/64 100 03/20/20 08:00 97.7 F 54 L 18 116/71 100 03/20/20 07:30 54 L 18 108/65 100 03/20/20 07:00 54 L 18 103/64 100 03/20/20 06:00 55 L 18 99/63 100 03/20/20 05:00 54 L 18 94/61 100 03/20/20 04:00 97.6 F 57 L 18 98/62 100 03/20/20 03:30 67 18 74/49 99 03/20/20 02:45 90 130/78 100 03/20/20 02:15 108 H 157/100 100 03/20/20 02:00 109 H 156/95 100 03/20/20 01:45 107 H 144/82 98 03/20/20 01:30 100 150/95 99 03/20/20 01:15 101 H 144/89 100 03/20/20 01:00 97 158/99 99 03/20/20 00:30 100 156/95 99 03/20/20 00:01 97.9 F 93 18 147/93 100 03/19/20 23:45 97.9 F 106 H 149/89 99 03/19/20 23:30 80 144/79 99 03/19/20 23:00 100 132/78 99 03/19/20 22:45 98 130/76 99 03/19/20 22:29 98 F 109 H 18 122/88 100 Intake and Output 03/20/20 03/20/20 03/20/20 06:59 14:59 22:59 Intake Total 1568.067 874.078 75 Output Total 430 285 40 Balance 1138.067 589.078 35 Intake: IV 625 75 Piperacillin-Tazobactam 3 100 .375 gm In Sodium Chloride 0.9% 100 ml @ 25 mls/hr IVPB Q8HR [facility] Rx# :[id number] Sodium Chloride 0.9% 1, 525 75 000 ml @ 75 mls/hr IV . [id number] [facility] Rx#:[id number] Intake, IV Titration 1568.067 249.078 Amount Norepinephrine 4 mg In 48.067 46.213 Sodium Chloride 0.9% 250 ml @ 0.05 MCG/KG/MIN 24. 195 mls/hr IV .[id number] [facility] Rx#:[id number] Sodium Chloride 0.9% 1, 520 130 000 ml @ 75 mls/hr IV . [id number] [facility] Rx#:[id number] Sodium Chloride 0.9% 1, 1000 000 ml @ 999 mls/hr IV . Q1H1M [facility] Rx#:[id number] propofoL 1,000 mg In 72.865 Empty Bag 1 bag @ Titrate IV .Q0M [facility] Rx#: [id number] Output: Urine 430 285 40 Uretheral (López) 250 Other: Voiding Method Indwelling Catheter Indwelling Catheter Indwelling Catheter Weight 95 kg 95.2 kg ABP, PAP, CO, CI - Last 8 Hours Arterial Blood Pressure 111/54 Arterial Blood Pressure 110/53 Arterial Blood Pressure 116/57 Arterial Blood Pressure 114/66 Arterial Blood Pressure 112/65 Arterial Blood Pressure 104/60 Arterial Blood Pressure 106/60 Arterial Blood Pressure 80/54 Arterial Blood Pressure 121/62 Arterial Blood Pressure 146/73 GENERAL EXAM: Patient is sedated and unresponsive. On mechanical ventilator HEENT: Normocephalic. NECK: No masses, no nuchal rigidity. CHEST: No chest wall deformity. LUNGS: [diminished air exchange HEART: [S1 and S2 normal distant heart sounds ABDOMEN: No hepatosplenomegaly, normal bowel sounds, no guarding or rigidity. SKIN: No rashes CENTRAL NERVOUS SYSTEM: deferred EXTREMITIES: no edema Results 03/20/20 03:33 03/20/20 03:33 Cardiac Enzymes 03/19/20 03/19/20 03/20/20 Range/Units 22:43 22:43 02:12 AST 64 H (14-36) U/L Troponin I <0.012 0.056 H* (0.000-0.034) ng/mL 03/20/20 Range/Units 03:33 AST (14-36) U/L Troponin I 0.085 H* (0.000-0.034) ng/mL Coagulation 03/19/20 Range/Units 22:43 PT 9.6 (9.0-12.0) sec APTT 20.1 L (22.0-30.0) sec CBC 03/19/20 03/20/20 Range/Units 22:43 03:33 WBC 10.1 11.6 H (3.8-10.6) k/uL RBC 4.73 3.83 (3.80-5.40) m/uL Hgb 13.4 11.1 L (11.4-16.0) gm/dL Hct 43.8 34.5 (34.0-46.0) % Plt Count 293 215 (150-450) k/uL Comprehensive Metabolic Panel 03/19/20 03/20/20 Range/Units 22:43 03:33 Sodium 133 L 137 (137-145) mmol/L Potassium 5.8 H 5.1 (3.5-5.1) mmol/L Chloride 98 109 H (98-107) mmol/L Carbon Dioxide 17 L 21 L (22-30) mmol/L BUN 42 H 44 H (7-17) mg/dL Creatinine 1.81 H 1.79 H (0.52-1.04) mg/dL Glucose 458 H 254 H (74-99) mg/dL Calcium 9.6 8.3 L (8.4-10.2) mg/dL AST 64 H (14-36) U/L ALT 25 (4-34) U/L Alkaline Phosphatase 135 H (38-126) U/L Total Protein 8.0 (6.3-8.2) g/dL Albumin 4.4 (3.5-5.0) g/dL Current Medications Generic Name Dose Route Start Last Admin Trade Name Freq PRN Reason Stop Dose Admin Acetaminophen 650 mg 03/20/20 05:17 Acetaminophen Tab 325 Mg Tab PO Q4HR PRN Fever and/or Mild Pain Albuterol/Ipratropium 3 ml 03/20/20 13:00 03/20/20 14:54 Ipratropium-Albuterol 3 Ml Neb INHALATION 3 ml RT-QID PRN Administration Shortness Of Breath Or Wheezing Aspirin 81 mg 03/20/20 09:00 03/20/20 09:50 Aspirin 81 Mg PO 81 mg DAILY [facility] Administration Carvedilol 3.125 mg 03/20/20 07:30 03/20/20 09:34 Carvedilol 3.125 Mg Tab PO Not Given AC-BID [facility] Chlorhexidine Gluconate 15 ml 03/20/20 09:00 03/20/20 09:49 Chlorhexidine Gluconate 15 Ml Cup MUCOUS MEM 15 ml BID [facility] Administration Ezetimibe 10 mg 03/20/20 09:00 03/20/20 09:51 Ezetimibe 10 Mg Tab PO 10 mg DAILY [facility] Administration Gabapentin 800 mg 03/20/20 09:00 03/20/20 16:50 Gabapentin 400 Mg Cap PO 800 mg QID [facility] Administration Heparin Sodium (Porcine) 5,000 unit 03/20/20 08:00 03/20/20 16:49 Heparin Sodium,Porcine 5,000 Unit/Ml 1 Ml Vial SQ 5,000 unit Q8HR [facility] Administration Sodium Chloride 1,000 mls @ 75 mls/hr 03/20/20 01:30 03/20/20 11:00 Saline 0.9% IV 75 mls/hr .[id number] [facility] Administration Norepinephrine Bitartrate 4 mg 254 mls @ 24.195 mls/hr 03/20/20 03:45 03/20/20 11:15 / Sodium Chloride IV 0.02 mcg/kg/min .[id number] [facility] 9.678 mls/hr Titration Protocol 0.05 MCG/KG/MIN Propofol 1,000 mg/ IV Solution 100 mls @ 0 mls/hr 03/20/20 06:15 03/20/20 13:44 IV 20 mcg/kg/min .Q0M [facility] 11.4 mls/hr Administration Protocol Titrate Piperacillin Sod/Tazobactam 100 mls @ 25 mls/hr 03/20/20 10:00 03/20/20 17:01 Sod 3.375 gm/ Sodium Chloride IVPB 25 mls/hr Q8HR [facility] Administration Insulin Aspart 0 unit 03/20/20 04:00 03/20/20 17:01 Insulin Aspart (Novolog) 100 Unit/Ml Vial SQ Not Given Q4H [facility] Protocol Lisinopril 5 mg 03/20/20 09:00 03/20/20 09:50 Lisinopril 5 Mg Tab PO Not Given DAILY [facility] Methylprednisolone Sodium Succinate 40 mg 03/20/20 13:00 03/20/20 16:49 Methylprednisolone Sod Succi 40 Mg/Ml 1 Ml Vial IV 40 mg Q6HR [facility] Administration Morphine Sulfate 4 mg 03/20/20 01:26 03/20/20 02:16 Morphine Sulfate 4 Mg/Ml Syringe IV 4 mg Q4HR PRN Administration Severe Pain Naloxone HCl 0.2 mg 03/20/20 01:26 Naloxone 0.4 Mg/Ml 1 Ml Vial IV Q2M PRN Opioid Reversal Naloxone HCl 0.2 mg 03/20/20 05:17 Naloxone 0.4 Mg/Ml 1 Ml Vial IV Q2M PRN Opioid Reversal Pantoprazole Sodium 40 mg 03/20/20 10:15 03/20/20 10:28 Pantoprazole 40 Mg/10 Ml Vial IVP Not Given DAILY [facility] Prasugrel 10 mg 03/20/20 09:00 03/20/20 09:50 Prasugrel 10 Mg Tab PO 10 mg DAILY [facility] Administration Intake and Output 03/20/20 03/20/20 03/20/20 06:59 14:59 22:59 Intake Total 1568.067 874.078 75 Output Total 430 285 40 Balance 1138.067 589.078 35 Intake: IV 625 75 Piperacillin-Tazobactam 3 100 .375 gm In Sodium Chloride 0.9% 100 ml @ 25 mls/hr IVPB Q8HR [facility] Rx# :[id number] Sodium Chloride 0.9% 1, 525 75 000 ml @ 75 mls/hr IV . [id number] [facility] Rx#:[id number] Intake, IV Titration 1568.067 249.078 Amount Norepinephrine 4 mg In 48.067 46.213 Sodium Chloride 0.9% 250 ml @ 0.05 MCG/KG/MIN 24. 195 mls/hr IV .[id number] [facility] Rx#:[id number] Sodium Chloride 0.9% 1, 520 130 000 ml @ 75 mls/hr IV . [id number] [facility] Rx#:[id number] Sodium Chloride 0.9% 1, 1000 000 ml @ 999 mls/hr IV . Q1H1M [facility] Rx#:[id number] propofoL 1,000 mg In 72.865 Empty Bag 1 bag @ Titrate IV .Q0M [facility] Rx#: [id number] Output: Urine 430 285 40 Uretheral (López) 250 Other: Voiding Method Indwelling Catheter Indwelling Catheter Indwelling Catheter Weight 95 kg 95.2 kg Patient Weight 03/21/20 06:59 Weight 95.2 kg 03/20/20 03:33 03/20/20 03:33 EKG Interpretations (text) sinus rhythm with a right bundle-branch block Assessment and Plan (1) Cardiac arrest Current Visit: Yes Status: Acute Code(s): I46.9 - CARDIAC ARREST, CAUSE UNSPECIFIED SNOMED Code(s): 542341645 (2) CAD (coronary artery disease) Current Visit: No Status: Acute Code(s): I25.10 - ATHSCL HEART DISEASE OF [place] CORONARY ARTERY W/O ANG PCTRS SNOMED Code(s): 13761716 (3) Elevated troponin Current Visit: No Status: Acute Code(s): R74.8 - ABNORMAL LEVELS OF OTHER SERUM ENZYMES SNOMED Code(s): 640805261 (4) Tracheostomy care Current Visit: No Status: Acute Code(s): Z43.0 - ENCOUNTER FOR ATTENTION TO TRACHEOSTOMY SNOMED Code(s): 045472384 Plan: patient is admitted with cardiac arrest. Could be primary ventricular fibrillation. Patient has ischemic cardiomyopathy. We'll repeat echocardiogram. We'll continue to monitor neurological status. If patient begins her neurological functions, patient may be candidate for AICD. However heart prognosis is guarded. Further recommendations depend upon the clinical course
[2020-03-20 18:03] LABS: Glucose,Whole Blood 113 mg/dL (75-99)
--- NOTE | 2020-03-20 19:43 | P.HPIM ---
History of Present Illness H&P Date: 03/20/20 Chief Complaint: Decreased responsiveness History of presenting complaint: This is a 64-year-old patient of Dr. Finley. Chronic stable medical conditions include hypertension, hyperlipidemia, diabetic peripheral neuropathy. was in the hospital in October 2018 having cardiac arrest following LAD angioplasty. Also pulmonary vmwzanca-lpxbzbwhyr-pynn was felt a left vocal cord paralysis probably from intubation. Patient was brought in by the EMS. Family had called closure short of breath. While they were on the phone vacation became unresponsive and collapsed into the bed. Then begin using a bag valve mask ventilation. When the EMS arrived patient was unresponsive she also went into ventricular fibrillation. She received 1 mg of epinephrine 1 shock and patient then came around. Downtime was about 10 minutes. Patient is in the ICU. On the ventilator. FiO2 50% and a PEEP of 5. Patient is on IV propofol and norepinephrine. Telemetry shows sinus rhythm. Has an NG tube. Per cardiology notes her EF is 35%. In the past. Review of systems:-Patient intubated Past medical history: Cardiac arrest following cardiac catheterization during stenting of LAD, coronary artery disease with stent to LAD, status post ventilator, suspected tracheal stenosis following intubation, COPD, diabetes mellitus type II, hypertension, hyperlipidemia, diabetic peripheral neuropathy, left vocal cord paralysis, acute tubular necrosis, Social history: Retired, smoked a pack a day for 30 years stopped in 2014. Lives with daughter. And other family members several of them smoke Family history: Dementia, diabetes mellitus Physical examination: VITAL SIGNS: 98, 109, 18, 122/88, on the ventilator-upon presentation GENERAL: BMI 33.9, laying in bed, intubated EYES: Pupils equal. Conjunctiva normal. HEENT: External appearance of nose and ears normal, oral cavity endotracheal tube. NG tube NECK: JVD unable to assess, masses not palpable. HEART: First and second heart sounds are normal; no edema. LUNGS: Respiratory rate increased, decreased breath sounds prolonged expiration. ABDOMEN: Soft, nontender, liver spleen not palpable, no masses palpable. PSYCH: Patient sedated NEUROLOGICAL: Cranial nerves grossly intact; no facial asymmetry, pupils-10 point. LYMPHATICS: No lymph nodes palpable in the axilla and neck INVESTIGATIONS, reviewed in the clinical context: White count 10.1 hemoglobin 13.4 platelets 293 potassium 5.8 bicarb 17 bun 42 creatinine 1.81 blood glucose 458 lactic acid 8.1 Troponin I less than 0.012, 0.056,0.085 EKG tracing personally reviewed by me-sinus rhythm low-voltage right bundle branch block pattern Computed tomography scan of the brain-negative Chest x-ray film personally reviewed by me-portable cardiomegaly venous p rominence Assessment: -Cardiac arrest with underlying rhythm of ventricle fibrillation, with downtime of 10 minutes cardioverted, 1 dose of epinephrine -Acute hypoxic respiratory failure, requiring ventilator support -Acute on chronic congestive heart failure exacerbation from systolic dysfunction EF 25% -Lactic acidosis most likely type II. Cannot rule out infectious process. -Possible aspiration pneumonia -Acute COPD exacerbation in an ex-smoker, exposed to secondhand smoking -Possible tracheal stenosis following intubation -History of cardiac arrest following stenting to LAD -Coronary artery disease with stent to LAD -Diabetes mellitus 2 uncontrolled with hyper glycemia on insulin drip secondary to steroids -Essential hypertension -Hyperlipidemia -Diabetic peripheral neuropathy -Left vocal cord paralysis from intubation -Obesity BMI 33.9 -Consider anoxic brain injury. Plan: Patient is ICU. Intubated. On the ventilator. Currently on IV propofol and norepinephrine. IV Solu-Medrol. IV Zosyn. DVT prophylaxis. Workplace Relations Adviser and oncology on the case. Prognosis guarded. Past Medical History Past Medical History: Coronary Artery Disease (CAD), CVA/TIA, Diabetes Mellitus, Hyperlipidemia, Hypertension Additional Past Medical History / Comment(s): Diabetic peripheral neuropathyongoing, cardiac arrest october, back pain, TIA 2011 no residual, heart murmur-had a stress test, found a "spot"-had a planned heart cath to evaluate-blockage in "widowmaker" and coded during the cath was vented and in ICU Last Myocardial Infarction Date:: unknown History of Any Multi-Drug Resistant Organisms: MRSA Date of last positivie culture/infection: 04/14/2015 MDRO Source:: top of head Past Surgical History: Heart Catheterization With Stent, Tubal Ligation Additional Past Surgical History / Comment(s): bilat cataract surgery, trach inserted Past Anesthesia/Blood Transfusion Reactions: No Reported Reaction Date of Last Stent Placement:: 10/02/18 Past Psychological History: No Psychological Hx Reported Smoking Status: Never smoker Past Alcohol Use History: None Reported Past Drug Use History: None Reported - Past Family History Mother Family Medical History: Dementia, Diabetes Mellitus Father Family Medical History: Diabetes Mellitus, Deep Vein Thrombosis (DVT) Medications and Allergies Home Medications Medication Instructions Recorded Confirmed Type Aspirin 81 mg PO DAILY chew 10/16/18 03/19/20 Rx Prasugrel [Effient] 10 mg PO DAILY tab 10/16/18 03/19/20 Rx lisinopriL [Zestril] 5 mg PO DAILY tab 10/16/18 03/19/20 Rx Gabapentin 800 mg PO QID 01/10/19 03/19/20 History Ezetimibe [Zetia] 10 mg PO DAILY 03/22/19 03/19/20 History Furosemide [Lasix] 40 mg PO DAILY 03/04/20 03/19/20 History Insulin Aspart (Niacinamide) 11 units SQ AC-TID 03/04/20 03/19/20 History [Fiasp 100 Unit/ml Flextouch] Insulin Glargine,Hum.rec.anlog 100 units SQ HS 03/04/20 03/19/20 History [Toujeo Solostar] carvediloL [Coreg] 3.125 mg PO AC-BID 03/04/20 03/19/20 History Allergies Allergy/AdvReac Type Severity Reaction Status Date / Time Aijuucs-Hhb-Bql Reductase AdvReac muscle Verified 03/19/20 22:36 Inhibitor pain/breakdown Physical Exam Vitals: Vital Signs Temp Pulse Resp BP Pulse Ox 03/20/20 07:00 54 L 18 103/64 100 03/20/20 06:00 55 L 18 99/63 100 03/20/20 05:00 54 L 18 94/61 100 03/20/20 04:00 97.6 F 57 L 18 98/62 100 03/20/20 03:30 67 18 74/49 99 03/20/20 02:45 90 130/78 100 03/20/20 02:15 108 H 157/100 100 03/20/20 02:00 109 H 156/95 100 03/20/20 01:45 107 H 144/82 98 03/20/20 01:30 100 150/95 99 03/20/20 01:15 101 H 144/89 100 03/20/20 01:00 97 158/99 99 03/20/20 00:30 100 156/95 99 03/20/20 00:01 97.9 F 93 18 147/93 100 03/19/20 23:45 97.9 F 106 H 149/89 99 03/19/20 23:30 80 144/79 99 03/19/20 23:00 100 132/78 99 03/19/20 22:45 98 130/76 99 03/19/20 22:29 98 F 109 H 18 122/88 100 Intake and Output 03/19/20 03/20/20 03/20/20 22:59 06:59 14:59 Intake Total 1568.067 130 Output Total 430 35 Balance 1138.067 95 Intake: Intake, IV Titration 1568.067 130 Amount Norepinephrine 4 mg In 48.067 Sodium Chloride 0.9% 250 ml @ 0.05 MCG/KG/MIN 24. 195 mls/hr IV .[id number] [facility] Rx#:[id number] Sodium Chloride 0.9% 1, 520 130 000 ml @ 130 mls/hr IV . [id number] [facility] Rx#:[id number] Sodium Chloride 0.9% 1, 1000 000 ml @ 999 mls/hr IV . Q1H1M [facility] Rx#:[id number] Output: Urine 430 35 Uretheral (López) 250 Other: Voiding Method Indwelling Catheter Weight 127.006 kg 95 kg Results CBC & Chem 7: 03/20/20 03:33 03/20/20 03:33 Labs: Abnormal Lab Results - Last 24 Hours (Table) 03/19/20 03/19/20 03/19/20 Range/Units 22:40 22:43 22:43 WBC (3.8-10.6) k/uL Hgb (11.4-16.0) gm/dL MCHC 30.7 L (31.0-37.0) g/dL Neutrophils # (1.3-7.7) k/uL Lymphocytes # (1.0-4.8) k/uL APTT 20.1 L (22.0-30.0) sec ABG pH (7.35-7.45) ABG pCO2 (35-45) mmHg ABG pO2 (83-108) mmHg ABG Total CO2 (19-24) mmol/L ABG O2 Saturation (94-97) % Sodium (137-145) mmol/L Potassium (3.5-5.1) mmol/L Chloride (98-107) mmol/L Carbon Dioxide (22-30) mmol/L BUN (7-17) mg/dL Creatinine (0.52-1.04) mg/dL Glucose (74-99) mg/dL POC Glucose (mg/dL) 415 H (75-99) mg/dL Plasma Lactic Acid John (0.7-2.0) mmol/L Calcium (8.4-10.2) mg/dL AST (14-36) U/L Alkaline Phosphatase (38-126) U/L Troponin I (0.000-0.034) ng/mL Urine Protein (Negative) Urine Glucose (UA) (Negative) Urine Mucus (None) /hpf 03/19/20 03/19/20 03/20/20 Range/Units 22:43 22:43 00:46 WBC (3.8-10.6) k/uL Hgb (11.4-16.0) gm/dL MCHC (31.0-37.0) g/dL Neutrophils # (1.3-7.7) k/uL Lymphocytes # (1.0-4.8) k/uL APTT (22.0-30.0) sec ABG pH (7.35-7.45) ABG pCO2 (35-45) mmHg ABG pO2 (83-108) mmHg ABG Total CO2 (19-24) mmol/L ABG O2 Saturation (94-97) % Sodium 133 L (137-145) mmol/L Potassium 5.8 H (3.5-5.1) mmol/L Chloride (98-107) mmol/L Carbon Dioxide 17 L (22-30) mmol/L BUN 42 H (7-17) mg/dL Creatinine 1.81 H (0.52-1.04) mg/dL Glucose 458 H (74-99) mg/dL POC Glucose (mg/dL) 401 H (75-99) mg/dL Plasma Lactic Acid John 8.1 H* (0.7-2.0) mmol/L Calcium (8.4-10.2) mg/dL AST 64 H (14-36) U/L Alkaline Phosphatase 135 H (38-126) U/L Troponin I (0.000-0.034) ng/mL Urine Protein (Negative) Urine Glucose (UA) (Negative) Urine Mucus (None) /hpf 03/20/20 03/20/20 03/20/20 Range/Units 00:47 01:20 02:12 WBC (3.8-10.6) k/uL Hgb (11.4-16.0) gm/dL MCHC (31.0-37.0) g/dL Neutrophils # (1.3-7.7) k/uL Lymphocytes # (1.0-4.8) k/uL APTT (22.0-30.0) sec ABG pH 7.30 L (7.35-7.45) ABG pCO2 49 H (35-45) mmHg ABG pO2 184 H (83-108) mmHg ABG Total CO2 25 H (19-24) mmol/L ABG O2 Saturation 99.9 H (94-97) % Sodium (137-145) mmol/L Potassium (3.5-5.1) mmol/L Chloride (98-107) mmol/L Carbon Dioxide (22-30) mmol/L BUN (7-17) mg/dL Creatinine (0.52-1.04) mg/dL Glucose (74-99) mg/dL POC Glucose (mg/dL) (75-99) mg/dL Plasma Lactic Acid John (0.7-2.0) mmol/L Calcium (8.4-10.2) mg/dL AST (14-36) U/L Alkaline Phosphatase (38-126) U/L Troponin I 0.056 H* (0.000-0.034) ng/mL Urine Protein 1+ H (Negative) Urine Glucose (UA) 4+ H (Negative) Urine Mucus Rare H (None) /hpf 03/20/20 03/20/20 03/20/20 Range/Units 03:16 03:33 03:33 WBC (3.8-10.6) k/uL Hgb (11.4-16.0) gm/dL MCHC (31.0-37.0) g/dL Neutrophils # (1.3-7.7) k/uL Lymphocytes # (1.0-4.8) k/uL APTT (22.0-30.0) sec ABG pH (7.35-7.45) ABG pCO2 (35-45) mmHg ABG pO2 (83-108) mmHg ABG Total CO2 (19-24) mmol/L ABG O2 Saturation (94-97) % Sodium (137-145) mmol/L Potassium (3.5-5.1) mmol/L Chloride (98-107) mmol/L Carbon Dioxide (22-30) mmol/L BUN (7-17) mg/dL Creatinine (0.52-1.04) mg/dL Glucose (74-99) mg/dL POC Glucose (mg/dL) 251 H (75-99) mg/dL Plasma Lactic Acid John 2.1 H* (0.7-2.0) mmol/L Calcium (8.4-10.2) mg/dL AST (14-36) U/L Alkaline Phosphatase (38-126) U/L Troponin I 0.085 H* (0.000-0.034) ng/mL Urine Protein (Negative) Urine Glucose (UA) (Negative) Urine Mucus (None) /hpf 03/20/20 03/20/20 03/20/20 Range/Units 03:33 03:33 04:46 WBC 11.6 H (3.8-10.6) k/uL Hgb 11.1 L (11.4-16.0) gm/dL MCHC (31.0-37.0) g/dL Neutrophils # 10.7 H (1.3-7.7) k/uL Lymphocytes # 0.5 L (1.0-4.8) k/uL APTT (22.0-30.0) sec ABG pH (7.35-7.45) ABG pCO2 (35-45) mmHg ABG pO2 (83-108) mmHg ABG Total CO2 (19-24) mmol/L ABG O2 Saturation (94-97) % Sodium (137-145) mmol/L Potassium (3.5-5.1) mmol/L Chloride 109 H (98-107) mmol/L Carbon Dioxide 21 L (22-30) mmol/L BUN 44 H (7-17) mg/dL Creatinine 1.79 H (0.52-1.04) mg/dL Glucose 254 H (74-99) mg/dL POC Glucose (mg/dL) 241 H (75-99) mg/dL Plasma Lactic Acid John (0.7-2.0) mmol/L Calcium 8.3 L (8.4-10.2) mg/dL AST (14-36) U/L Alkaline Phosphatase (38-126) U/L Troponin I (0.000-0.034) ng/mL Urine Protein (Negative) Urine Glucose (UA) (Negative) Urine Mucus (None) /hpf 03/20/20 03/20/20 Range/Units 07:14 09:43 WBC (3.8-10.6) k/uL Hgb (11.4-16.0) gm/dL MCHC (31.0-37.0) g/dL Neutrophils # (1.3-7.7) k/uL Lymphocytes # (1.0-4.8) k/uL APTT (22.0-30.0) sec ABG pH (7.35-7.45) ABG pCO2 (35-45) mmHg ABG pO2 236 H (83-108) mmHg ABG Total CO2 (19-24) mmol/L ABG O2 Saturation 100.0 H (94-97) % Sodium (137-145) mmol/L Potassium (3.5-5.1) mmol/L Chloride (98-107) mmol/L Carbon Dioxide (22-30) mmol/L BUN (7-17) mg/dL Creatinine (0.52-1.04) mg/dL Glucose (74-99) mg/dL POC Glucose (mg/dL) 285 H (75-99) mg/dL Plasma Lactic Acid John (0.7-2.0) mmol/L Calcium (8.4-10.2) mg/dL AST (14-36) U/L Alkaline Phosphatase (38-126) U/L Troponin I (0.000-0.034) ng/mL Urine Protein (Negative) Urine Glucose (UA) (Negative) Urine Mucus (None) /hpf
[2020-03-20 19:52] LABS: Glucose,Whole Blood 66 mg/dL (75-99)
[2020-03-20 19:55] LABS: Glucose,Whole Blood 71 mg/dL (75-99)
[2020-03-20 23:14] LABS: Glucose,Whole Blood 115 mg/dL (75-99)
[2020-03-21] MEDS: NOREPINEPHRINE 4 MG in SODIUM CHLORIDE 0.9% 250 ML IV SCH ×3 (02:53→20:20)
[2020-03-21 04:03] LABS: Glucose,Whole Blood 185 mg/dL (75-99)
[2020-03-21] MEDS: INSULIN ASPART (NovoLOG) 100 UNIT/ML VIAL SQ SCH ×6 (04:12→23:41)
[2020-03-21 04:13] LABS: Basophils % (A) 0 %; Eosinophils % (A) 0 %; HCT 35.4 % (34.0-46.0); HGB 11.5 gm/dL (11.4-16.0); Hypochromasia Slight; Lymphocytes # (A) 0.7 k/uL (1.0-4.8); Lymphocytes % (A) 6 %; MCH 29.3 pg (25.0-35.0); MCHC 32.6 g/dL (31.0-37.0); MCV 89.8 fL (80.0-100.0); Mean Platelet Volume 8.2; Monocytes # (A) 0.1 k/uL (0-1.0); Monocytes % (A) 1 %; Neutrophils # (A) 10.1 k/uL (1.3-7.7); Neutrophils % (A) 93 %; Platelet Count 205 k/uL (150-450); RBC 3.94 m/uL (3.80-5.40); RDW 13.9 % (11.5-15.5); WBC 10.8 k/uL (3.8-10.6)
[2020-03-21 04:30] LABS: Calcium 8.7 mg/dL (8.4-10.2); Potassium 4.9 mmol/L (3.5-5.1)
[2020-03-21] MEDS: methylPREDNISolone SOD SUCCI 40 MG/ML 1 ML VIAL IV SCH ×4 (05:24→23:41)
[2020-03-21] MEDS: SODIUM CHLORIDE 0.9% 1,000 ML IV SCH ×2 (06:03→08:50)
[2020-03-21] MEDS: IPRATROPIUM-ALBUTEROL 3 ML NEB INHALATION PRN ×4 (07:13→20:18)
[2020-03-21 07:17] LABS: ABG Base Excess -5.1 mmol/L; ABG HCO3 21 mmol/L (21-25); ABG Oxygen Saturation 98.9 % (94-97); ABG PCO2 38 mmHg (35-45); ABG PH 7.34 (7.35-7.45); ABG PO2 103 mmHg (83-108); ABG TCO2 22 mmol/L (19-24); Allen Test Performed? Yes
--- NOTE | 2020-03-21 07:26 | XR ---
EXAMINATION TYPE: XR chest 1V portable DATE OF EXAM: 03/21/2020 Comparison: 03/20/2020 Clinical History: 64-year-old female Tube placement Findings: Redemonstrated tracheostomy cannula and NG tube. Heart upper limits of normal in size. Slight interva l worsening in left basilar opacity. Continued diffuse interstitial opacity. Impression: Bilateral interstitial opacity persists. Increased small left effusion with left basilar atelectasis and/or consolidation. Consider CHF as a possible etiology.
[2020-03-21 08:19] LABS: Glucose,Whole Blood 200 mg/dL (75-99)
[2020-03-21] MEDS ORDERED: FUROSEMIDE 10 MG/ML 4 ML VIAL IV STA (08:25)
[2020-03-21] MEDS: PIPERACILLIN-TAZOBACTAM 3.375 GM in SODIUM CHLORIDE 0.9% 100 ML IVPB SCH ×3 (08:36→23:41)
[2020-03-21] MEDS: CHLORHEXIDINE GLUCONATE 15 ML CUP MUCOUS MEM SCH ×2 (08:36→20:16)
[2020-03-21] MEDS: PANTOPRAZOLE 40 MG/10 ML VIAL IVP SCH (08:37)
[2020-03-21] MEDS: PRASUGREL 10 MG TAB PO SCH (08:39)
[2020-03-21] MEDS: GABAPENTIN 400 MG CAP PO SCH ×4 (08:39→20:16)
[2020-03-21] MEDS: EZETIMIBE 10 MG TAB PO SCH (08:39)
[2020-03-21] MEDS: ASPIRIN 81 MG PO SCH (08:40)
[2020-03-21] MEDS: HEPARIN SODIUM,PORCINE 5,000 UNIT/ML 1 ML VIAL SQ SCH ×3 (08:40→23:41)
[2020-03-21] MEDS: lisinopriL 5 MG TAB PO SCH (08:46)
[2020-03-21] MEDS: carvediloL 3.125 MG TAB PO SCH ×2 (08:46→17:00)
--- NOTE | 2020-03-21 11:18 | P.PN ---
Subjective Progress Note Date: 03/21/20 Principal diagnosis: Acute hypoxic or for failure and cardiac arrest This is a 64-year-old female with history of multiple medical problems including coronary artery disease, previous cardiac arrest, going back to Oct 02 2018. Patient was having elective cardiac catheterization and she was found to have a mid LAD lesion. During the procedure, patient went into cardiac arrest, and angioplasty was performed. However patient developed profound hypotension and went into pulseless electrical activity. Patient continues to have on and off hypotension and cardiac arrest for approximately 60 minutes in the [employer]. During this time the patient had LAD stented she was resuscitated, emPella device was used, and she was eventually transferred to the intensive care unit, seen by Dr. Atkinson on consultation. Patient had a prolonged course of intubation and mechanical ventilation, she was eventually discharged on 10/17/19. At that time patient had systolic dysfunction with ejection fraction of 35%. She also had episodes of COPD exacerbation, and she was also noted to have a left vocal cord paralysis, likely related to her intubation. Patient was eventually discharged to [facility], and she continues to have intermittent episodes of stridor. Seen last as inpatient by Dr. Atkinson on 03/23/2019, at the time she was having shortness of breath with inspiratory stridor. And again this was felt to be related to her vocal cord injury/paralysis. Eventually, the patient ended up with a tracheostomy in place, this was supposedly done on outpatient basis. Patient has been following with Dr. Nelson's/ENT for her vocal cord paralysis. Her tracheostomy was done on May 14 2019 at the [facility].Last night the patient was brought into the ER by EMS, patient apparently had a cardiopulmonary arrest. EMS arrived to the scene, patient was unresponsive, apparently she collapsed forward onto bed, patient was Ambu bag, and she was pulseless. Reportedly she went into ventricular fibrillation, she was given 1 mg of epinephrine, and she was shocked once. CPR was roughly lasted 5 minutes, and there was return of spontaneous circulation after 1 epinephrine and 1 shock. Patient was brought into the ER, unresponsive, and an endotracheal tube was placed in the tracheostomy site by EMS, and this was later changed by the ER physician to a tracheostomy connected to mechanical ventilation, patient was admitted to the ICU, and I was asked to see her on consultation. Patient is unresponsive. She is only responding to very deep painful stimuli. CT of the brain was negative. Patient is now on mechanical ventilation with assist control rate of 18 tidal volume is 400 FiO2 is down to 50% and PEEP is at 5. ABG post intubation showed a pO2 of 236 pCO2 of 38 pH of 7.37. Patient is on norepinephrine at 0.03 mcg/kg/m, propofol at 20 mcg/kg/m, IV fluids running at 150 mL per hour, she is on GI and DVT prophylaxis, she is also on Zosyn empirically, and I went ahead and placed a right radial arterial line for hemodynamic monitoring. Neurology consultation is pending. Lactic acid on admission was 8.1, follow-up lactic acid this morning is 1.6. Troponin went up from 0.012 up to 0.085. CBC is relatively normal. PT PTT and INR are normal. Chest x-ray this morning showed stable pleural parenchymal changes, difficult to tell whether the patient has underlying pneumonia or congestive heart failure. EKG this morning showed sinus tachycardia right bundle branch block, and possible old inferior wall SD. Cardiology consultation is pending. Patient was reevaluated today on 03/21/20, patient remains in the ICU, intubated and mechanically ventilated. She is now on assist control rate of 18, tidal volume is 400 FiO2 is 50% PEEP is 5. ABG showed a pO2 of 103 pCO2 of 38 pH of 7.34 hence I cut down her FiO2 to 45%. Her peak airway pressure is 31, and her plateau pressure is 22. Chest x-ray is showing some component of interstitial edema, left lower lobe atelectasis, possible pneumonia involving the left lower lobe. Considering the chest x-ray findings, I recommended Lasix 40 mg IV push 1, and The patient empirically on antibiotics. Echocardiogram is pending today. Neurologically the patient is sedated, on propofol, however as we discontinued the propofol patient became extremely agitated and restless, bucking the vent, and her blood pressure was noted to go extremely high, but she was not following any instructions and she was not comprehending much. Has had to place her back on propofol. Could not be ventilated properly off propofol. Labs from today were reviewed her electrolytes are normal BUN is 36 creatinine is 1.55, improving to creatinine on presentation which was 1.81. WBC count is 10.8 hemoglobin is 11.5 Objective - Vital Signs Vital signs: Vital Signs Temp 98.3 F 03/21/20 08:00 Pulse 70 03/21/20 10:00 Resp 25 H 03/21/20 10:00 BP 181/113 03/21/20 10:00 Pulse Ox 97 03/21/20 10:00 Intake & Output 03/20/20 03/21/20 03/21/20 18:59 06:59 18:59 Intake Total 6121.111 0587.447 168.114 Output Total 610 900 35 Balance 739.078 525.447 133.114 Weight 95.2 kg 101.5 kg Intake: IV 1100 925 75 Piperacillin-Tazobactam 3 200 100 .375 gm In Sodium Chloride 0.9% 100 ml @ 25 mls/hr IVPB Q8HR [facility] Rx# :[id number] Sodium Chloride 0.9% 1, 900 825 75 000 ml @ 75 mls/hr IV . [id number] [facility] Rx#:[id number] Intake, IV Titration 249.078 340.447 73.114 Amount Norepinephrine 4 mg In 46.213 110.975 Sodium Chloride 0.9% 250 ml @ 0.05 MCG/KG/MIN 24. 195 mls/hr IV .[id number] [facility] Rx#:[id number] Sodium Chloride 0.9% 1, 130 000 ml @ 75 mls/hr IV . [id number] [facility] Rx#:[id number] propofoL 1,000 mg In 72.865 229.472 73.114 Empty Bag 1 bag @ Titrate IV .Q0M [facility] Rx#: [id number] Tube Feeding 100 20 Other 60 Output: Urine 610 900 35 Other: Voiding Method Indwelling Catheter Indwelling Catheter ABP, PAP, CO, CI - Last Documented Arterial Blood Pressure 145/62 - Exam Gen.: Revealed a 64-year-old female on mechanical ventilation, in no distress, on propofol. Head exam: Atraumatic, normocephalic. Eye exam: Pinpoint pupils, minimal periorbital edema, no icterus, ENT exam: Dry mucous membranes, tracheostomy tube is intact. Orogastric tube is intact. Neck exam: Supple, no neck masses, tracheostomy is intact. Respiratory exam: Diminished breath sounds at the bases crackles and rhonchi bilaterally. Cardiovascular Exam: Normal S1 and S2, no S3 gallop. GI/Abdominal exam: Flat, soft, nontender, no megaly, no rebound, no guarding. Extremities exam: No clubbing, trace of edema, no cyanosis. Good pulses bilaterally. Neurological exam: Patient is unresponsive to any stimuli except withdrawal from deep painful stimuli. Pupils are pinpoint. Off propofol, the patient was extremely agitated and restless, asynchronous with the ventilator, and could not be ventilated properly hence had to be placed back on propofol. Skin exam: No rashes - Labs CBC & Chem 7: 03/21/20 04:00 03/21/20 04:00 Labs: Abnormal Lab Results - Last 24 Hours (Table) 03/20/20 03/20/20 03/20/20 Range/Units 11:43 16:40 17:04 WBC (3.8-10.6) k/uL Neutrophils # (1.3-7.7) k/uL Lymphocytes # (1.0-4.8) k/uL ABG pH (7.35-7.45) ABG O2 Saturation (94-97) % Chloride (98-107) mmol/L BUN (7-17) mg/dL Creatinine (0.52-1.04) mg/dL Glucose (74-99) mg/dL POC Glucose (mg/dL) 252 H 61 L 196 H (75-99) mg/dL 03/20/20 03/20/20 03/20/20 Range/Units 18:02 19:51 19:54 WBC (3.8-10.6) k/uL Neutrophils # (1.3-7.7) k/uL Lymphocytes # (1.0-4.8) k/uL ABG pH (7.35-7.45) ABG O2 Saturation (94-97) % Chloride (98-107) mmol/L BUN (7-17) mg/dL Creatinine (0.52-1.04) mg/dL Glucose (74-99) mg/dL POC Glucose (mg/dL) 113 H 66 L 71 L (75-99) mg/dL 03/20/20 03/21/20 03/21/20 Range/Units 23:12 04:00 04:00 WBC 10.8 H (3.8-10.6) k/uL Neutrophils # 10.1 H (1.3-7.7) k/uL Lymphocytes # 0.7 L (1.0-4.8) k/uL ABG pH (7.35-7.45) ABG O2 Saturation (94-97) % Chloride 113 H (98-107) mmol/L BUN 36 H (7-17) mg/dL Creatinine 1.55 H (0.52-1.04) mg/dL Glucose 193 H (74-99) mg/dL POC Glucose (mg/dL) 115 H (75-99) mg/dL 03/21/20 03/21/20 03/21/20 Range/Units 04:02 07:12 08:17 WBC (3.8-10.6) k/uL Neutrophils # (1.3-7.7) k/uL Lymphocytes # (1.0-4.8) k/uL ABG pH 7.34 L (7.35-7.45) ABG O2 Saturation 98.9 H (94-97) % Chloride (98-107) mmol/L BUN (7-17) mg/dL Creatinine (0.52-1.04) mg/dL Glucose (74-99) mg/dL POC Glucose (mg/dL) 185 H 200 H (75-99) mg/dL Microbiology - Last 24 Hours (Table) 03/20/20 00:01 Blood Culture - Preliminary Blood No Growth after 24 hours Assessment and Plan Assessment: Impression: Cardiac arrest, patient is known to have history of underlying coronary artery disease and underlying ischemic cardiomyopathy. Her cardiac presentation was mostly a presentation of ventricular fibrillation and pulseless electric activity as documented by EMS on site. Acute hypoxic respiratory failure secondary to cardiac arrest. Possible aspiration pneumonia. Suspect mild acute systolic congestive heart failure. Secondary to ischemic cardiomyopathy and LV dysfunction. Lasix was given today. And her IV fluid will be cut down to KVO. History of vocal cord paralysis and tracheostomy. History of COPD, patient quit smoking in 2003. History of coronary artery disease with previous cardiac intervention and stenting of LAD and she is post cardiac arrest at the time of the cardiac catheterization. Benign essential hypertension. Diabetic peripheral neuropathy. Suspect anoxic brain injury. Recommendation: Continue ventilatory support, and her ventilator settings were adjusted accordingly. FiO2 is down to 45%. Continue bronchodilators. Continue IV Solu-Medrol. Continue GI and DVT prophylaxis. Neurology to see on consultation. In a.m. Cardiology may consider cardiac intervention if her mental status shows any improvement. Continue nutritional support/enteral feeding. Prognosis is definitely poor and guarded, patient is yet to be seen by neurology for further evaluation of her anoxic brain injury. We'll continue to follow. Critical care time is 34 minutes Time with Patient: Greater than 30
[2020-03-21 12:01] LABS: Glucose,Whole Blood 228 mg/dL (75-99)
--- NOTE | 2020-03-21 12:36 | P.PN ---
Subjective Progress Note Date: 03/21/20 This is a 64-year-old female with history of ischemic cardiomyopathy who was admitted with cardiac arrest and documented ventricular fibrillation. Patient is currently intubated and sedated. Attempts at weaning off were unsuccessful. Patient is still waiting for neurological evaluation regarding permanent mental status. Patient is maintaining sinus rhythm. No arrhythmias are noted. Echocardiogram is pending. If LV function is poor and if patient shows improvement in her mental status, patient may be candidate for AICD. May also consider for possible cardiac cath before AICD implantation. Further recommendations depend upon the chemical course. Chest x-ray showed possible aspiration pneumonia and mild CHF. Patient received IV Lasix Objective - Vital Signs Vital signs: Vital Signs Temp 98.3 F 03/21/20 08:00 Pulse 62 03/21/20 11:27 Resp 25 H 03/21/20 10:00 BP 181/113 03/21/20 10:00 Pulse Ox 97 03/21/20 10:00 Intake & Output 03/20/20 03/21/20 03/21/20 18:59 06:59 18:59 Intake Total 8439.789 4614.447 239.367 Output Total 610 900 35 Balance 739.078 525.447 204.367 Weight 95.2 kg 101.5 kg Intake: IV 1100 925 75 Piperacillin-Tazobactam 3 200 100 .375 gm In Sodium Chloride 0.9% 100 ml @ 25 mls/hr IVPB Q8HR [facility] Rx# :[id number] Sodium Chloride 0.9% 1, 900 825 75 000 ml @ 75 mls/hr IV . [id number] [facility] Rx#:[id number] Intake, IV Titration 249.078 340.447 144.367 Amount Norepinephrine 4 mg In 46.213 110.975 Sodium Chloride 0.9% 250 ml @ 0.05 MCG/KG/MIN 24. 195 mls/hr IV .[id number] [facility] Rx#:[id number] Sodium Chloride 0.9% 1, 130 000 ml @ 75 mls/hr IV . [id number] [facility] Rx#:[id number] propofoL 1,000 mg In 72.865 229.472 144.367 Empty Bag 1 bag @ Titrate IV .Q0M [facility] Rx#: [id number] Tube Feeding 100 20 Other 60 Output: Urine 610 900 35 Other: Voiding Method Indwelling Catheter Indwelling Catheter ABP, PAP, CO, CI - Last Documented Arterial Blood Pressure 145/62 - Exam GENERAL EXAM: Patient is Intubated and sedated HEENT: Normocephalic. Normal reaction of pupils, equal size, normal range of extraocular motion. No erythema or exudates in the throat. NECK: No masses, no nuchal rigidity. CHEST: No chest wall deformity. LUNGS: [Diminished air entry HEART: [S1 and S2 normal with no audible mumurs or gallops. ABDOMEN:Off SKIN: No rashes CENTRAL NERVOUS SYSTEM: Sedated EXTREMITIES: [No cyanosis, clubbing or edema.] - Labs CBC & Chem 7: 03/21/20 04:00 03/21/20 04:00 Labs: Abnormal Lab Results - Last 24 Hours (Table) 03/20/20 03/20/20 03/20/20 Range/Units 16:40 17:04 18:02 WBC (3.8-10.6) k/uL Neutrophils # (1.3-7.7) k/uL Lymphocytes # (1.0-4.8) k/uL ABG pH (7.35-7.45) ABG O2 Saturation (94-97) % Chloride (98-107) mmol/L BUN (7-17) mg/dL Creatinine (0.52-1.04) mg/dL Glucose (74-99) mg/dL POC Glucose (mg/dL) 61 L 196 H 113 H (75-99) mg/dL 03/20/20 03/20/20 03/20/20 Range/Units 19:51 19:54 23:12 WBC (3.8-10.6) k/uL Neutrophils # (1.3-7.7) k/uL Lymphocytes # (1.0-4.8) k/uL ABG pH (7.35-7.45) ABG O2 Saturation (94-97) % Chloride (98-107) mmol/L BUN (7-17) mg/dL Creatinine (0.52-1.04) mg/dL Glucose (74-99) mg/dL POC Glucose (mg/dL) 66 L 71 L 115 H (75-99) mg/dL 03/21/20 03/21/20 03/21/20 Range/Units 04:00 04:00 04:02 WBC 10.8 H (3.8-10.6) k/uL Neutrophils # 10.1 H (1.3-7.7) k/uL Lymphocytes # 0.7 L (1.0-4.8) k/uL ABG pH (7.35-7.45) ABG O2 Saturation (94-97) % Chloride 113 H (98-107) mmol/L BUN 36 H (7-17) mg/dL Creatinine 1.55 H (0.52-1.04) mg/dL Glucose 193 H (74-99) mg/dL POC Glucose (mg/dL) 185 H (75-99) mg/dL 03/21/20 03/21/20 03/21/20 Range/Units 07:12 08:17 11:59 WBC (3.8-10.6) k/uL Neutrophils # (1.3-7.7) k/uL Lymphocytes # (1.0-4.8) k/uL ABG pH 7.34 L (7.35-7.45) ABG O2 Saturation 98.9 H (94-97) % Chloride (98-107) mmol/L BUN (7-17) mg/dL Creatinine (0.52-1.04) mg/dL Glucose (74-99) mg/dL POC Glucose (mg/dL) 200 H 228 H (75-99) mg/dL Microbiology - Last 24 Hours (Table) 03/20/20 00:01 Blood Culture - Preliminary Blood No Growth after 24 hours Assessment and Plan (1) Cardiac arrest Current Visit: Yes Status: Acute Code(s): I46.9 - CARDIAC ARREST, CAUSE UNSPECIFIED SNOMED Code(s): 528068556 (2) CAD (coronary artery disease) Current Visit: No Status: Acute Code(s): I25.10 - ATHSCL HEART DISEASE OF [place] CORONARY ARTERY W/O ANG PCTRS SNOMED Code(s): 52691415 (3) Elevated troponin Current Visit: No Status: Acute Code(s): R74.8 - ABNORMAL LEVELS OF OTHER SERUM ENZYMES SNOMED Code(s): 920604012 (4) Tracheostomy care Current Visit: No Status: Acute Code(s): Z43.0 - ENCOUNTER FOR ATTENTION TO TRACHEOSTOMY SNOMED Code(s): 935989452 Plan: Patient is still on ventilator. Neurology evaluation is pending. No arrhythmias. We will follow If her neurological status improves, further cardiac intervention be considered.
--- NOTE | 2020-03-21 13:39 | XR ---
EXAMINATION TYPE: XR chest 1V portable DATE OF EXAM: 03/21/2020 Comparison: 03/21/2020 Clinical History: 64-year-old female NG tube placement. Findings: There is some type of tubing or wire looped within the upper half of the thorax. NG tube sidehole is at the level of the GE junction. Tracheostomy cannula is present. Left basilar opacity persists. Inte rstitial densities show partial improvement. Heart upper limits of normal in size. Impression: 1. There is looped tubing projecting over the midline upper half of the thorax, possibly related to c oiled up NG tube. Clinical correlation is needed. The NG tube sidehole is at the level of the GE junc tion. 2. Continued small left pleural effusion with left basilar atelectasis and/or consolidation.
--- NOTE | 2020-03-21 14:04 | P.PN ---
Progress Note - Text Progress Note Date: 03/21/20 Chief Complaint: Decreased responsiveness History of presenting complaint: This is a 64-year-old patient of Dr. Finley. Chronic stable medical conditions include hypertension, hyperlipidemia, diabetic peripheral neuropathy. was in the hospital in October 2018 having cardiac arrest following LAD angioplasty. Also pulmonary ciqufdpq-exoxbvvmvj-gnih was felt a left vocal cord paralysis probably from intubation. Patient was brought in by the EMS. Family had called closure short of breath. While they were on the phone vacation became unresponsive and collapsed into the bed. Then begin using a bag valve mask ventilation. When the EMS arrived patient was unresponsive she also went into ventricular fibrillation. She received 1 mg of epinephrine 1 shock and patient then came around. Downtime was about 10 minutes. Patient is in the ICU. On the ventilator. FiO2 50% and a PEEP of 5. Patient is on IV propofol and norepinephrine. Telemetry shows sinus rhythm. Has an NG tube. Per cardiology notes her EF is 35%. In the past. admitted with-cardiac arrest with underlying rhythm of ventricular fibrillation the downtime of tenderness, cardioverted, acute hypoxic respiratory failure on the ventilator, acute CHF exacerbation, lactic acidosis likely type II, aspiration pneumonia, and acute COPD exacerbation.started on IV Zosyn, IV Solu- Medrol. Initially intubated. [id number] a sedation holiday for about 40 minutes today. Carotid with agitated. Drips included propofol and levo fed-discontinued at midnight. Telemetry shows sinus rhythm. FiO2 45 and a PEEP of 5 on the ventilator. Review of systems:-Patient intubated Active Medications Acetaminophen (Acetaminophen Tab 325 Mg Tab) 650 mg PO Q4HR PRN PRN Reason: Fever and/or Mild Pain Albuterol/Ipratropium (Ipratropium-Albuterol 3 Ml Neb) 3 ml INHALATION RT-QID PRN PRN Reason: Shortness Of Breath Or Wheezing Last Admin: 03/21/20 11:08 Dose: 3 ml Documented by: Aspirin (Aspirin 81 Mg) 81 mg PO DAILY [facility] Last Admin: 03/21/20 08:40 Dose: 81 mg Documented by: Carvedilol (Carvedilol 3.125 Mg Tab) 3.125 mg PO AC-BID [facility] Last Admin: 03/21/20 08:46 Dose: 3.125 mg Documented by: Chlorhexidine Gluconate (Chlorhexidine Gluconate 15 Ml Cup) 15 ml MUCOUS MEM BID [facility] Last Admin: 03/21/20 08:36 Dose: 15 ml Documented by: Ezetimibe (Ezetimibe 10 Mg Tab) 10 mg PO DAILY [facility] Last Admin: 03/21/20 08:39 Dose: 10 mg Documented by: Gabapentin (Gabapentin 400 Mg Cap) 800 mg PO QID [facility] Last Admin: 03/21/20 12:30 Dose: 800 mg Documented by: Heparin Sodium (Porcine) (Heparin Sodium,Porcine 5,000 Unit/Ml 1 Ml Vial) 5,000 unit SQ Q8HR [facility] Last Admin: 03/21/20 08:40 Dose: 5,000 unit Documented by: Sodium Chloride (Saline 0.9%) 1,000 mls @ 75 mls/hr IV .[id number] [facility] Last Admin: 03/21/20 08:50 Dose: 75 mls/hr Documented by: Norepinephrine Bitartrate 4 mg (/ Sodium Chloride) 254 mls @ 24.195 mls/hr IV .[id number] [facility]; Protocol Last Admin: 03/21/20 12:26 Dose: Not Given Documented by: Propofol 1,000 mg/ IV Solution 100 mls @ 0 mls/hr IV .Q0M [facility]; Protocol Last Admin: 03/21/20 12:30 Dose: 30 mcg/kg/min, 18.27 mls/hr Documented by: Piperacillin Sod/Tazobactam (Sod 3.375 gm/ Sodium Chloride) 100 mls @ 25 mls/hr IVPB Q8HR [facility] Last Admin: 03/21/20 08:36 Dose: 25 mls/hr Documented by: Insulin Aspart (Insulin Aspart (Novolog) 100 Unit/Ml Vial) 0 unit SQ Q4H [facility]; Protocol Last Admin: 03/21/20 12:31 Dose: 3 unit Documented by: Lisinopril (Lisinopril 5 Mg Tab) 5 mg PO DAILY [facility] Last Admin: 03/21/20 08:46 Dose: 5 mg Documented by: Methylprednisolone Sodium Succinate (Methylprednisolone Sod Succi 40 Mg/Ml 1 Ml Vial) 40 mg IV Q6HR [facility] Last Admin: 03/21/20 12:30 Dose: 40 mg Documented by: Morphine Sulfate (Morphine Sulfate 4 Mg/Ml Syringe) 4 mg IV Q4HR PRN PRN Reason: Severe Pain Last Admin: 03/20/20 02:16 Dose: 4 mg Documented by: Naloxone HCl (Naloxone 0.4 Mg/Ml 1 Ml Vial) 0.2 mg IV Q2M PRN PRN Reason: Opioid Reversal Naloxone HCl (Naloxone 0.4 Mg/Ml 1 Ml Vial) 0.2 mg IV Q2M PRN PRN Reason: Opioid Reversal Pantoprazole Sodium (Pantoprazole 40 Mg/10 Ml Vial) 40 mg IVP DAILY [facility] Last Admin: 03/21/20 08:37 Dose: 40 mg Documented by: Prasugrel (Prasugrel 10 Mg Tab) 10 mg PO DAILY [facility] Last Admin: 03/21/20 08:39 Dose: 10 mg Documented by: Physical examination: VITAL SIGNS: 98.2, 60, 18, 134/106, 90% on the ventilator GENERAL: laying in bed, intubated EYES: Pupils equal. Conjunctiva normal. HEENT: External appearance of nose and ears normal, oral cavity . NG tube NECK: JVD unable to assess, masses not palpable.stroma with the tracheostomy tube-connected to ventilator HEART: First and second heart sounds are normal; no edema. LUNGS: Respiratory rate increased, decreased breath sounds ABDOMEN: Soft, nontender, liver spleen not palpable, no masses palpable. PSYCH: Patient sedated NEUROLOGICAL: Cranial nerves grossly intact; no facial asymmetry, pupils-pin point. INVESTIGATIONS, reviewed in the clinical context: White count 10.8 hemoglobin 11.5 platelets 205potassium 4.5 bun 36 creatinine 1.55 Admission testing White count 10.1 hemoglobin 13.4 platelets 293 potassium 5.8 bicarb 17 bun 42 creatinine 1.81 blood glucose 458 lactic acid 8.1 Troponin I less than 0.012, 0.056,0.085 EKG tracing personally reviewed by me-sinus rhythm low-voltage right bundle branch block pattern Computed tomography scan of the brain-negative Chest x-ray film personally reviewed by me-portable cardiomegaly venous prominence Assessment: -Cardiac arrest with underlying rhythm of ventricle fibrillation, with downtime of 10 minutes cardioverted, 1 dose of epinephrine -Acute hypoxic respiratory failure, requiring ventilator support-slow to respond -Acute on chronic congestive heart failure exacerbation from systolic dysfunction EF 25% -Lactic acidosis most likely type II. Cannot rule out infectious process. -Possible aspiration pneumonia -Acute COPD exacerbation in an ex-smoker, exposed to secondhand smoking-slow to respond -Possible tracheal stenosis following intubation -History of cardiac arrest following stenting to LAD -Coronary artery disease with stent to LAD -Diabetes mellitus 2 uncontrolled with hyper glycemia on insulin drip secondary to steroids -Essential hypertension -Hyperlipidemia -Diabetic peripheral neuropathy -Left vocal cord paralysis from intubation -Obesity BMI 33.9 -Consider anoxic brain injury. Plan: Patient is ICU. Intubated. On the ventilator. continue IV propofol , IV Solu- Medrol. IV Zosyn. follow labs closely. Prognosis guarded.
[2020-03-21 15:34] LABS: Glucose,Whole Blood 268 mg/dL (75-99)
--- NOTE | 2020-03-21 16:26 | XR ---
EXAMINATION TYPE: XR chest 1V DATE OF EXAM: 03/21/2020 COMPARISON: Today HISTORY: Check tube placement TECHNIQUE: Single view FINDINGS: There is NG tube with the tip probably in the distal stomach. There is some blunting left c ostophrenic angle. There is mild pulmonary congestion.. There is tracheostomy tube. There is coarseni ng of interstitial markings. IMPRESSION: NG tube in the distal stomach. Pulmonary congestion slightly increased compared to recent exam today. Left lower lobe infiltrate and left pleural fluid unchanged.
[2020-03-21 20:09] LABS: Glucose,Whole Blood 299 mg/dL (75-99)
[2020-03-21 23:36] LABS: Glucose,Whole Blood 324 mg/dL (75-99)
[2020-03-21] MEDS ORDERED: INSULIN ASPART (NovoLOG) 100 UNIT/ML VIAL SQ ONE (23:55)
[2020-03-22] MEDS ORDERED: INSULIN DETEMIR (LEVEMIR) 100 UNIT/ML SYR SQ ONE
[2020-03-22 03:56] LABS: Glucose,Whole Blood 237 mg/dL (75-99)
[2020-03-22 04:13] LABS: Basophils % (A) 0 %; Eosinophils % (A) 0 %; HCT 36.4 % (34.0-46.0); HGB 11.4 gm/dL (11.4-16.0); Lymphocytes # (A) 0.6 k/uL (1.0-4.8); Lymphocytes % (A) 5 %; MCH 27.7 pg (25.0-35.0); MCHC 31.2 g/dL (31.0-37.0); MCV 88.9 fL (80.0-100.0); Mean Platelet Volume 8.9; Monocytes # (A) 0.3 k/uL (0-1.0); Monocytes % (A) 3 %; Neutrophils % (A) 93 %; Platelet Count 227 k/uL (150-450); RDW 14.2 % (11.5-15.5)
[2020-03-22 04:38] LABS: Calcium 8.7 mg/dL (8.4-10.2); Potassium 4.3 mmol/L (3.5-5.1)
[2020-03-22 06:18] LABS: ABG Base Excess 3.1 mmol/L; ABG HCO3 28 mmol/L (21-25); ABG Oxygen Saturation 99.1 % (94-97); ABG PCO2 46 mmHg (35-45); ABG PH 7.39 (7.35-7.45); ABG PO2 316 mmHg (83-108); ABG TCO2 29 mmol/L (19-24); Allen Test Performed? Yes
[2020-03-22] MEDS: INSULIN ASPART (NovoLOG) 100 UNIT/ML VIAL SQ SCH ×6 (06:28→23:38)
[2020-03-22] MEDS: methylPREDNISolone SOD SUCCI 40 MG/ML 1 ML VIAL IV SCH (06:29)
[2020-03-22] MEDS: carvediloL 3.125 MG TAB PO SCH ×2 (06:47→16:50)
[2020-03-22 07:04] LABS: ABG Base Excess -2.7 mmol/L; ABG HCO3 22 mmol/L (21-25); ABG Oxygen Saturation 99.6 % (94-97); ABG PCO2 36 mmHg (35-45); ABG PO2 127 mmHg (83-108); ABG TCO2 23 mmol/L (19-24); Allen Test Performed? Yes
[2020-03-22] MEDS: IPRATROPIUM-ALBUTEROL 3 ML NEB INHALATION PRN ×3 (07:07→15:20)
--- NOTE | 2020-03-22 08:29 | XR ---
EXAMINATION TYPE: XR chest 1V portable DATE OF EXAM: 03/22/2020 COMPARISON: Prior chest x-ray 03/21/2020 HISTORY: Intubated, abnormal chest x-ray TECHNIQUE: Single frontal view of the chest is obtained. FINDINGS: Tracheostomy tube is overlying the tracheal air column, orogastric tube is present with th e distal tip not included on the exam but coursing into the left upper quadrant. There is no evident pneumothorax. Bibasilar patchy density persists. There are overlying leads and defibrillator pad. Hea rt is stable and borderline enlarged. Aorta is dense. IMPRESSION: Probable basilar atelectasis, correlate to exclude pneumonia. Difficult to exclude small effusion.
[2020-03-22] MEDS ORDERED: LIDOCAINE 1% INJ 10MG/ML (20 ML MDV) ONE (08:38)
[2020-03-22] MEDS ORDERED: LIDOCAINE 2% (PF) 20 MG/ML 5 ML VIAL ONE (08:39)
[2020-03-22] MEDS ORDERED: LIDOCAINE 1% INJ 10MG/ML (20 ML MDV) SQ PRN ×2 (08:47→11:20)
--- NOTE | 2020-03-22 09:13 | P.CNNES ---
History of Present Illness Consult date: 03/22/20 Requesting physician: Artemio Zee Reason for Consult: Cardiopulmonary arrest History of Present Illness: Patient is a 64-year-old female, came to the hospital by ambulance on 03/19/2020 at 10:23 PM after she had a cardiopulmonary arrest. The patient's family called EMS, because patient had been short of breath, and choking through her trach that has been in place. While they were on the phone, patient became unresponsive and collapsed forward onto bed. Fire department arrived and patient was not breathing, but had a pulse. The began using bag valve mask ventilation, and attempted to suction out the trach. EMS arrived to find patient unresponsive and when they were attempting to straighten out the patient's airway, she reportedly went into ventilator fibrillation, and lost her pulse. Adequate ventilations were not able to be maintained throughout the trach and the stoma was removed to replace the endotracheal tube was placed in the track. After approximately 5 minutes of CPR, patient obtained ROSC. She was given 1 mg of epinephrine and 1 shock and then they did have ROSC. There is report of about total of 10 minutes of downtime from the time the patient became unresponsive and ROSC. Vital signs on arrival was blood pressure 102/88, pulse rate 109, temperature 98. Computed tomography scan of head was normal. No adverse change compared to old exam from 04/14/2015. Chest x-ray showed pulmonary congestion increased compared to old examined consistent with congestive heart failure. No asymmetric pulmonary infiltrate. EKG shows sinus tachycardia with first-degree AV block. Blood tests shows normal hemoglobin, WBC 13.0, platelets 227, PTT is 20.1 INR normal. ABG is normal. Chem-7 with electrolytes are normal, BUN 42, creatinine 1.70. Hemoglobin A1c 8.4 on 03/22/2019. AST is 64, ALT 25. TFTs normal in October 2018. 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 Patient has been diagnosed with ischemic cardiomyopathy. Arrest felt to be related to possible ventricular fibrillation. If patient begins her neurological function, patient may be a candidate for AICD. Patient at present is not responsive, on tracheostomy. I spoke to patient's daughter Nicolasa, who informed me that patient is fully ambulatory, does not use any assistive device. In October 2018 patient had a pro cedure for heart during which she had a cardiac arrest 3. She was in the hospital for a month then rehab for another 2 weeks. Patient was having issues with her throat irritation, hard time talking because of some tissue, therefore she underwent tracheostomy in March 2019. Patient has history of tobacco use of one pack per day for 20-25 years, quit 15-20 years ago. Review of Systems ROS unobtainable: due to endotracheal tube, due to mental status Past Medical History Past Medical History: Coronary Artery Disease (CAD), CVA/TIA, Diabetes Mellitus, Hyperlipidemia, Hypertension Additional Past Medical History / Comment(s): Diabetic peripheral neuropathyongoing, cardiac arrest october, back pain, TIA 2011 no residual, heart murmur-had a stress test, found a "spot"-had a planned heart cath to evaluate-blockage in "widowmaker" and coded during the cath was vented and in ICU Last Myocardial Infarction Date:: unknown History of Any Multi-Drug Resistant Organisms: MRSA Date of last positivie culture/infection: 04/14/2015 MDRO Source:: top of head Past Surgical History: Heart Catheterization With Stent, Tubal Ligation Additional Past Surgical History / Comment(s): bilat cataract surgery, trach inserted Past Anesthesia/Blood Transfusion Reactions: No Reported Reaction Date of Last Stent Placement:: 10/02/18 Past Psychological History: No Psychological Hx Reported Smoking Status: Never smoker Past Alcohol Use History: None Reported Past Drug Use History: None Reported - Past Family History Mother Family Medical History: Dementia, Diabetes Mellitus Father Family Medical History: Diabetes Mellitus, Deep Vein Thrombosis (DVT) Medications and Allergies Home Medications Medication Instructions Recorded Confirmed Type Aspirin 81 mg PO DAILY chew 10/16/18 03/19/20 Rx Prasugrel [Effient] 10 mg PO DAILY tab 10/16/18 03/19/20 Rx lisinopriL [Zestril] 5 mg PO DAILY tab 10/16/18 03/19/20 Rx Gabapentin 800 mg PO QID 01/10/19 03/19/20 History Ezetimibe [Zetia] 10 mg PO DAILY 03/22/19 03/19/20 History Furosemide [Lasix] 40 mg PO DAILY 03/04/20 03/19/20 History Insulin Aspart (Niacinamide) 11 units SQ AC-TID 03/04/20 03/19/20 History [Fiasp 100 Unit/ml Flextouch] Insulin Glargine,Hum.rec.anlog 100 units SQ HS 03/04/20 03/19/20 History [Darrick Fish] carvediloL [Coreg] 3.125 mg PO AC-BID 03/04/20 03/19/20 History Allergies Allergy/AdvReac Type Severity Reaction Status Date / Time [id number]-Spc Reductase AdvReac muscle Verified 03/19/20 22:36 Inhibitor pain/breakdown Physical Examination - Vital Signs Vital Signs: Vital Signs Temp Pulse Resp BP Pulse Ox 03/22/20 07:17 64 03/22/20 07:07 63 03/22/20 07:00 64 18 145/74 99 03/22/20 06:30 64 18 99 03/22/20 06:00 61 18 147/75 99 03/22/20 05:30 65 18 99 03/22/20 05:00 64 20 137/70 99 03/22/20 04:30 67 18 99 03/22/20 04:00 98.6 F 68 18 120/62 99 03/22/20 03:30 65 24 97 03/22/20 03:00 61 18 130/64 97 03/22/20 02:30 62 18 97 03/22/20 02:00 63 19 148/73 97 03/22/20 01:30 66 18 99 03/22/20 01:00 68 18 138/70 99 03/22/20 00:30 68 18 99 03/22/20 00:00 98.2 F 67 18 137/71 98 03/21/20 23:30 68 23 98 03/21/20 23:00 69 22 150/77 98 03/21/20 22:30 68 22 99 03/21/20 22:00 66 19 98 03/21/20 21:30 67 18 98 03/21/20 21:00 72 18 133/69 99 03/21/20 20:30 70 23 98 03/21/20 20:27 68 03/21/20 20:18 67 03/21/20 20:00 98.1 F 59 L 18 98 03/21/20 17:30 65 18 95 03/21/20 17:00 67 18 134/71 95 03/21/20 16:30 66 19 98 03/21/20 16:00 98.3 F 65 18 119/65 97 03/21/20 15:31 67 03/21/20 15:30 66 18 99 03/21/20 15:07 62 03/21/20 15:00 62 14 124/64 94 L 03/21/20 14:30 61 18 94 L 03/21/20 14:00 62 19 130/69 96 03/21/20 13:30 63 18 97 03/21/20 13:00 61 18 133/72 98 03/21/20 12:30 59 L 18 98 03/21/20 12:00 98.2 F 60 18 134/106 98 03/21/20 11:30 62 18 97 03/21/20 11:27 62 03/21/20 11:13 63 03/21/20 11:00 62 25 H 146/78 97 03/21/20 10:30 61 22 97 03/21/20 10:00 70 25 H 181/113 97 03/21/20 09:30 78 34 H 97 Intake and Output 03/21/20 03/22/20 03/22/20 22:59 06:59 14:59 Intake Total 265.401 4034.606 108 Output Total 1120 465 50 Balance -386.580 725.606 58 Intake: IV 450 700 75 Piperacillin-Tazobactam 3 75 100 .375 gm In Sodium Chloride 0.9% 100 ml @ 25 mls/hr IVPB Q8HR [facility] Rx# :[id number] Sodium Chloride 0.9% 1, 375 600 75 000 ml @ 75 mls/hr IV . [id number] [facility] Rx#:[id number] Intake, IV Titration 143.420 181.606 Amount propofoL 1,000 mg In 143.420 181.606 Empty Bag 1 bag @ Titrate IV .Q0M [facility] Rx#: [id number] Tube Feeding 110 249 33 Other 30 60 Output: Urine 1120 465 50 Other: Voiding Method Indwelling Catheter Indwelling Catheter Weight 100.6 kg ABP, PAP, CO, CI - Last 8 Hours Arterial Blood Pressure 153/62 Arterial Blood Pressure 157/64 Arterial Blood Pressure 152/63 Arterial Blood Pressure 153/64 Arterial Blood Pressure 150/63 Arterial Blood Pressure 147/61 Arterial Blood Pressure 141/58 Arterial Blood Pressure 133/56 Arterial Blood Pressure 120/50 Arterial Blood Pressure 128/53 Arterial Blood Pressure 132/53 Arterial Blood Pressure 145/58 On examination patient has tracheostomy tube, and is on mechanical ventilator. Patient's sedation has been discontinued at 8 AM. Patient is breathing over the ventilator. She sometimes appears restless. Her right pupil has probable underlying lenticular opacity. Her left pupil is round, both sluggishly reacting. Oculocephalics are absent. Her face is symmetric. Patient does not responds to calling her name. With with noxious stimuli, as with nailbed pressure, there is no significant withdrawal noted on either side. Tone is equal bilaterally. Reflexes are diminished and plantars are upgoing bilaterally. Tone and bulk of muscles normal. Cerebellar functions, gait could not be checked. No obvious bruit. S1 and S2 audible. Abdomen soft. Results - Laboratory Findings CBC and BMP: 03/22/20 04:00 03/22/20 04:00 Abnormal Lab Findings: Abnormal Labs 03/19/20 03/19/20 03/19/20 22:40 22:43 22:43 WBC Hgb MCHC 30.7 L Neutrophils # Lymphocytes # APTT 20.1 L ABG pH ABG pCO2 ABG pO2 ABG Total CO2 ABG O2 Saturation Sodium Potassium Chloride Carbon Dioxide BUN Creatinine Glucose POC Glucose (mg/dL) 415 H Plasma Lactic Acid John Calcium AST Alkaline Phosphatase Troponin I Urine Protein Urine Glucose (UA) Urine Mucus 03/19/20 03/19/20 03/20/20 22:43 22:43 00:46 WBC Hgb MCHC Neutrophils # Lymphocytes # APTT ABG pH ABG pCO2 ABG pO2 ABG Total CO2 ABG O2 Saturation Sodium 133 L Potassium 5.8 H Chloride Carbon Dioxide 17 L BUN 42 H Creatinine 1.81 H Glucose 458 H POC Glucose (mg/dL) 401 H Plasma Lactic Acid John 8.1 H* Calcium AST 64 H Alkaline Phosphatase 135 H Troponin I Urine Protein Urine Glucose (UA) Urine Mucus 03/20/20 03/20/20 03/20/20 00:47 01:20 02:12 WBC Hgb MCHC Neutrophils # Lymphocytes # APTT ABG pH 7.30 L ABG pCO2 49 H ABG pO2 184 H ABG Total CO2 25 H ABG O2 Saturation 99.9 H Sodium Potassium Chloride Carbon Dioxide BUN Creatinine Glucose POC Glucose (mg/dL) Plasma Lactic Acid John Calcium AST Alkaline Phosphatase Troponin I 0.056 H* Urine Protein 1+ H Urine Glucose (UA) 4+ H Urine Mucus Rare H 03/20/20 03/20/20 03/20/20 03:16 03:33 03:33 WBC Hgb MCHC Neutrophils # Lymphocytes # APTT ABG pH ABG pCO2 ABG pO2 ABG Total CO2 ABG O2 Saturation Sodium Potassium Chloride Carbon Dioxide BUN Creatinine Glucose POC Glucose (mg/dL) 251 H Plasma Lactic Acid John 2.1 H* Calcium AST Alkaline Phosphatase Troponin I 0.085 H* Urine Protein Urine Glucose (UA) Urine Mucus 03/20/20 03/20/20 03/20/20 03:33 03:33 04:46 WBC 11.6 H Hgb 11.1 L MCHC Neutrophils # 10.7 H Lymphocytes # 0.5 L APTT ABG pH ABG pCO2 ABG pO2 ABG Total CO2 ABG O2 Saturation Sodium Potassium Chloride 109 H Carbon Dioxide 21 L BUN 44 H Creatinine 1.79 H Glucose 254 H POC Glucose (mg/dL) 241 H Plasma Lactic Acid John Calcium 8.3 L AST Alkaline Phosphatase Troponin I Urine Protein Urine Glucose (UA) Urine Mucus 03/20/20 03/20/20 03/20/20 07:14 09:43 11:43 WBC Hgb MCHC Neutrophils # Lymphocytes # APTT ABG pH ABG pCO2 ABG pO2 236 H ABG Total CO2 ABG O2 Saturation 100.0 H Sodium Potassium Chloride Carbon Dioxide BUN Creatinine Glucose POC Glucose (mg/dL) 285 H 252 H Plasma Lactic Acid John Calcium AST Alkaline Phosphatase Troponin I Urine Protein Urine Glucose (UA) Urine Mucus 03/20/20 03/20/20 03/20/20 16:40 17:04 18:02 WBC Hgb MCHC Neutrophils # Lymphocytes # APTT ABG pH ABG pCO2 ABG pO2 ABG Total CO2 ABG O2 Saturation Sodium Potassium Chloride Carbon Dioxide BUN Creatinine Glucose POC Glucose (mg/dL) 61 L 196 H 113 H Plasma Lactic Acid John Calcium AST Alkaline Phosphatase Troponin I Urine Protein Urine Glucose (UA) Urine Mucus 03/20/20 03/20/20 03/20/20 19:51 19:54 23:12 WBC Hgb MCHC Neutrophils # Lymphocytes # APTT ABG pH ABG pCO2 ABG pO2 ABG Total CO2 ABG O2 Saturation Sodium Potassium Chloride Carbon Dioxide BUN Creatinine Glucose POC Glucose (mg/dL) 66 L 71 L 115 H Plasma Lactic Acid John Calcium AST Alkaline Phosphatase Troponin I Urine Protein Urine Glucose (UA) Urine Mucus 03/21/20 03/21/20 03/21/20 04:00 04:00 04:02 WBC 10.8 H Hgb MCHC Neutrophils # 10.1 H Lymphocytes # 0.7 L APTT ABG pH ABG pCO2 ABG pO2 ABG Total CO2 ABG O2 Saturation Sodium Potassium Chloride 113 H Carbon Dioxide BUN 36 H Creatinine 1.55 H Glucose 193 H POC Glucose (mg/dL) 185 H Plasma Lactic Acid John Calcium AST Alkaline Phosphatase Troponin I Urine Protein Urine Glucose (UA) Urine Mucus 03/21/20 03/21/20 03/21/20 07:12 08:17 11:59 WBC Hgb MCHC Neutrophils # Lymphocytes # APTT ABG pH 7.34 L ABG pCO2 ABG pO2 ABG Total CO2 ABG O2 Saturation 98.9 H Sodium Potassium Chloride Carbon Dioxide BUN Creatinine Glucose POC Glucose (mg/dL) 200 H 228 H Plasma Lactic Acid John Calcium AST Alkaline Phosphatase Troponin I Urine Protein Urine Glucose (UA) Urine Mucus 03/21/20 03/21/20 03/21/20 15:33 20:07 23:34 WBC Hgb MCHC Neutrophils # Lymphocytes # APTT ABG pH ABG pCO2 ABG pO2 ABG Total CO2 ABG O2 Saturation Sodium Potassium Chloride Carbon Dioxide BUN Creatinine Glucose POC Glucose (mg/dL) 268 H 299 H 324 H Plasma Lactic Acid John Calcium AST Alkaline Phosphatase Troponin I Urine Protein Urine Glucose (UA) Urine Mucus 03/22/20 03/22/20 03/22/20 03:55 04:00 04:00 WBC 13.0 H Hgb MCHC Neutrophils # 12.0 H Lymphocytes # 0.6 L APTT ABG pH ABG pCO2 ABG pO2 ABG Total CO2 ABG O2 Saturation Sodium Potassium Chloride 112 H Carbon Dioxide BUN 42 H Creatinine 1.70 H Glucose 217 H POC Glucose (mg/dL) 237 H Plasma Lactic Acid John Calcium AST Alkaline Phosphatase Troponin I Urine Protein Urine Glucose (UA) Urine Mucus 03/22/20 05:45 WBC Hgb MCHC Neutrophils # Lymphocytes # APTT ABG pH ABG pCO2 ABG pO2 127 H ABG Total CO2 ABG O2 Saturation 99.6 H Sodium Potassium Chloride Carbon Dioxide BUN Creatinine Glucose POC Glucose (mg/dL) Plasma Lactic Acid John Calcium AST Alkaline Phosphatase Troponin I Urine Protein Urine Glucose (UA) Urine Mucus Assessment and Plan Assessment: * 64-year-old female, who has tracheostomy since March 2019, had a witnessed respiratory arrest followed by cardiac arrest at home, with downtime of about 10 minutes, although patient's daughter stating <5 minutes. Patient is off sedation, not showing significant clinical response as per examination above. Rule out underlying anoxic encephalopathy. Rule out underlying toxic metabolic component as well. * History of cardiac arrest in October 2018. * History of vocal cord paralysis and previous tracheostomy. * COPD * Diabetes * Hypertension * Mild renal insufficiency. * X tobacco use Plan: * Patient continues to be severely encephalopathic. Stat EEG was performed, which revealed background slowing of severe degree. Presence of almost continuous high amplitude triphasic-type waves were seen in bifrontal region. At times these appear sharp/epileptiform also. Overall, this study suggests generalized cerebral dysfunction, as can be seen in toxic metabolic encephalopathy or related to diffuse structural brain abnormality. High amplitude activity could be metabolic, although epileptiform also a possibility. Clinical correlation is recommended. Follow-up EEG also recommended. * Patient to be started on Keppra 750 mg twice a day (adjusted to her renal functions). * Repeat EEG in a.m. * Resume Neurontin, as patient has been on gabapentin 800 mg 4 times a day. * Discussed with patient's daughter in detail. Addendum: At around 12 PM, nurses reported that patient has developed frequent nonpurposeful spastic movements. Recommended to give Ativan 1 mg IV and start Keppra. Repeat EEG in a.m.
--- NOTE | 2020-03-22 09:28 | P.PN ---
Subjective Progress Note Date: 03/22/20 This is a pleasant 64-year-old female with history of coronary artery disease, prior stent placement, history of prior cardiac arrest in October 2018 at which time patient was having a stent placed in the LAD, she went into cardiac arrest at that time. During that admission, patient had a prolonged hospitalization requiring intubation and mechanical ventilation . Patient also has a history of COPD, hypertension, hyperlipidemia, vocal cord paralysis. Patient was brought to the hospital on this occasion following a cardiopulmonary arrest , EMS arrived at the scene, patient was unresponsive, pulseless. She was noted to go into ventricular fibrillation, was given epinephrine and shocked times one. CPR lasted approximately 5 minutes. Patient continues to be in the intensive care unit, she was evaluated this morning, continues to be intubated and mechanically ventilated. They are attempting to wean this morning, yesterday there was an attempt at coming down on sedation, unsuccessful. Patient did have an echocardiogram with Doppler study performed, results are yet pending. Neurologically, patient is still sedated, they are coming down on sedation today. She continues to be on propofol. Blood pressure this morning 144/74 with a heart rate in the 60s. She continues this morning to be in a normal sinus rhythm. Patient may be a candidate for an AICD, may also consider possible cardiac catheterization before AICD implantation. Chest x-ray shows probable atelectasis, bibasilar, possible pneumonia. Laboratory data from today was reviewed, white blood cell count 13.0, hemoglobin 11.4, platelet count 227. Sodium 139, potassium 4.3, BUN 42, creatinine 1.7. Blood gases were also obtained this morning, pH of 7.4, pCO2 36, pO2 127, HCO3 22, O2 saturation 99.6. Objective - Vital Signs Vital signs: Vital Signs Temp 98.6 F 03/22/20 04:00 Pulse 64 03/22/20 07:17 Resp 18 03/22/20 07:00 BP 145/74 03/22/20 07:00 Pulse Ox 99 03/22/20 07:00 Intake & Output 03/21/20 03/22/20 03/22/20 18:59 06:59 18:59 Intake Total 6927.519 6057.603 108 Output Total 1670 690 50 Balance -373.210 916.603 58 Weight 100.6 kg Intake: IV 1000 925 75 Piperacillin-Tazobactam 3 275 100 .375 gm In Sodium Chloride 0.9% 100 ml @ 25 mls/hr IVPB Q8HR [facility] Rx# :[id number] Sodium Chloride 0.9% 1, 725 825 75 000 ml @ 75 mls/hr IV . [id number] [facility] Rx#:[id number] Intake, IV Titration 206.790 262.603 Amount propofoL 1,000 mg In 206.790 262.603 Empty Bag 1 bag @ Titrate IV .Q0M [facility] Rx#: [id number] Tube Feeding 90 329 33 Other 90 Output: Urine 1670 690 50 Other: Voiding Method Indwelling Catheter Indwelling Catheter ABP, PAP, CO, CI - Last Documented Arterial Blood Pressure 153/62 - Exam PHYSICAL EXAMINATION: GENERAL: 64-year-old female, on mechanical ventilation, in no distress, on propofol HEENT: Head is atraumatic, normocephalic. Pupils equal, round. Sclera anicteric. Conjunctiva are clear. Mucous membranes of the mouth are moist. Neck is supple. There is no elevated jugular venous pressure. Tracheostomy tube is intact. Orogastric tube is intact. HEART EXAMINATION: [Heart S1, S2 normal. No murmur or gallop heard.] CHEST EXAMINATION: Lungs reveal diminished breath sounds at the bases with bilateral crackles heard ABDOMEN: [ Soft, nontender. Bowel sounds are heard. No organomegaly noted]. EXTREMITIES:[ 2+ peripheral pulses with trace evidence of peripheral edema and no calf tenderness noted]. NEUROLOGIC patient is unresponsive to any stimuli at this point, still on propofol. . - Labs CBC & Chem 7: 03/22/20 04:00 03/22/20 04:00 Labs: Abnormal Lab Results - Last 24 Hours (Table) 03/21/20 03/21/20 03/21/20 Range/Units 11:59 15:33 20:07 WBC (3.8-10.6) k/uL Neutrophils # (1.3-7.7) k/uL Lymphocytes # (1.0-4.8) k/uL ABG pO2 (83-108) mmHg ABG O2 Saturation (94-97) % Chloride (98-107) mmol/L BUN (7-17) mg/dL Creatinine (0.52-1.04) mg/dL Glucose (74-99) mg/dL POC Glucose (mg/dL) 228 H 268 H 299 H (75-99) mg/dL 03/21/20 03/22/20 03/22/20 Range/Units 23:34 03:55 04:00 WBC 13.0 H (3.8-10.6) k/uL Neutrophils # 12.0 H (1.3-7.7) k/uL Lymphocytes # 0.6 L (1.0-4.8) k/uL ABG pO2 (83-108) mmHg ABG O2 Saturation (94-97) % Chloride (98-107) mmol/L BUN (7-17) mg/dL Creatinine (0.52-1.04) mg/dL Glucose (74-99) mg/dL POC Glucose (mg/dL) 324 H 237 H (75-99) mg/dL 03/22/20 03/22/20 Range/Units 04:00 05:45 WBC (3.8-10.6) k/uL Neutrophils # (1.3-7.7) k/uL Lymphocytes # (1.0-4.8) k/uL ABG pO2 127 H (83-108) mmHg ABG O2 Saturation 99.6 H (94-97) % Chloride 112 H (98-107) mmol/L BUN 42 H (7-17) mg/dL Creatinine 1.70 H (0.52-1.04) mg/dL Glucose 217 H (74-99) mg/dL POC Glucose (mg/dL) (75-99) mg/dL Microbiology - Last 24 Hours (Table) 03/20/20 00:01 Blood Culture - Preliminary Blood No Growth after 48 hours Assessment and Plan Plan: Assessment and plan #1 cardiac arrest, evidence of ventricular fibrillation. Patient has history of prior cardiac arrest in October 2018, LAD was stented at that time. #2 hyperlipidemia #3 ischemic cardiomyopathy with prior documented ejection fraction of 35% #4 hypertension #5 mild systolic congestive heart failure acute on chronic #6 history of vocal cord paralysis and tracheostomy #7 COPD #8 prior history of smoking #9 diabetes Plan Patient is currently being weaned off of the propofol, her blood pressure is mildly elevated. We will start her on some IV labetalol when necessary this morning. Patient is also being evaluated with an EGD today to assess neurological status. She may require repeat cardiac catheterization with subsequent AICD implantation. Repeat echocardiogram with Doppler study has been ordered. We will continue to follow. DNP note has been reviewed, I agree with a documented findings and plan of care. Patient was seen and examined.
[2020-03-22] MEDS: LABETALOL 5 MG/ML VIAL MDV IVP PRN (10:07)
[2020-03-22] MEDS ORDERED: CLEVIDIPINE BUTYRATE 25 MG/50 ML VIAL IV ONE (11:09)
[2020-03-22] MEDS: CLEVIDIPINE BUTYRATE 25 MG in EMPTY BAG 1 BAG IV SCH ×2 (11:20→17:07)
[2020-03-22] MEDS ORDERED: LIDOCAINE 1% INJ 10MG/ML (20 ML MDV) INTRATRACH PRN (11:21)
--- NOTE | 2020-03-22 11:30 | PN ---
PROGRESS NOTE PULMONARY/CRITICAL CARE PROGRESS NOTE: DATE OF SERVICE: 03/22/2020 Critical care time 33 minutes. This is a patient with a history of known cardiac coronary artery disease and ischemic cardiomyopathy. She had an spw-xb-btljmxom cardiopulmonary arrest. At the scene, apparently because of a previous tracheostomy and tracheal stoma, a small tracheostomy tube was placed by the EMS at the scene. She apparently had a ventricular fibrillation arrest. She had resuscitation lasting about 10 minutes or so. Anyway, she is here in the unit. She was seen by my partner yesterday, Dr. Garcia. He did mention back in October 2018, patient had a cardiac arrest in the catheterization lab. She had a stent placed to the LAD. She had an Impella device placed for ongoing hypotension and cardiac instability and the patient was eventually transferred to the ICU where she spent a number of days on the ventilator. Apparently, eventually, because of vocal cord paralysis and stridor, the patient underwent tracheostomy at [facility]. Anyway, the patient is currently on the volume assist-control mode rate of 18, tidal volume 400, FiO2 of 45% to be turned down to 35%, PEEP of 5. Blood gases show pO2 of 127, pCO2 of 36 and a pH of 7.4. She is currently on propofol at 30 mcg/kg per minute, saline at 75 mL an hour and Vital high-protein at 33 with a goal of 33 mL an hour. We are going to turn her FiO2 down from 45%-35%. In addition, we are going to hold propofol and give her a daily interruption of sedation. We did that, we placed her on PSV 15, CPAP of 5. We are going to have Neurology see her, get an EEG. Microbiology is thus far negative. The patient will be seen by Ear, Nose, and Throat for possible revision of her trach site. She currently has a pediatric tracheostomy tube in place. In addition to all of that, she has suspected anoxic brain injury, peripheral neuropathy, essential hypertension, CAD with previous stenting of the LAD with subsequent cardiac arrest, COPD, vocal cord paralysis, and acute systolic CHF. She may also have aspiration pneumonia. Current vital signs are reviewed. Temperature is 98.6, heart rate 64, respiratory rate 18, blood pressure 145/74 mean 97, saturations are 99% on FiO2 of 35%. Appears in no acute distress. HEENT: Examination is grossly unremarkable. NECK: Supple. She has a midline tracheal stoma. She has a pediatric tracheostomy tube in place. Neck is otherwise stable. No adenopathy. CARDIOVASCULAR: Examination reveals regular rhythm and rate. Heart rate 64. S1, S2 normal. Heart sounds are distant. LUNGS: Reveal diffuse coarse rhonchi. Breath sounds equal. ABDOMEN: Soft, bowel sounds are heard. EXTREMITIES: Intact. No cyanosis, clubbing, or significant edema. SKIN: Without rash. NEUROLOGIC: Examination is difficult to assess. She is on propofol. Taking her off her propofol, she does not respond to verbal or painful stimuli. She has been seen by Neurology and EEG has been ordered. CURRENT LABS: Reviewed. White count 13, hemoglobin 11.4, hematocrit 36.4, platelet count 227,000, blood gases as mentioned. Sodium 139, potassium 4.3, chloride is 112, CO2 is 22, anion gap is 5. BUN and creatinine were 42 and 1.7, glucose 217, calcium 8.7. Microbiology is thus far negative. Chest x-ray from today shows basilar atelectasis. CURRENT MEDICATIONS: Reviewed. She is on Tylenol, aspirin, Coreg, chlorhexidine, Zetia, gabapentin, subcu heparin, insulin per protocol, updrafts with DuoNeb, labetalol p.r.n., lidocaine down the tracheostomy tube x1, Zestril, Solu-Medrol, morphine, Narcan, Protonix, Zosyn, and saline IV. A procalcitonin level was ordered. ASSESSMENT: 1. Status post nbs-nb-vgvgtgsr cardiopulmonary arrest, with about 10 minutes of resuscitation and eventual return of spontaneous circulation. Cardiac arrest was predominantly a ventricular fibrillation arrest as well as pulseless electrical activity. The resuscitation again was about 10 minutes. 2. Status post mechanical ventilation to a previous tracheal stoma for hypoxemic respiratory failure. 3. Possible aspiration pneumonia, although chest x-ray looks pretty clear. 4. Acute systolic congestive heart failure. 5. Ischemic cardiomyopathy. 6. History of vocal cord paralysis and previous tracheostomy. 7. History of chronic obstructive pulmonary disease. 8. History of coronary artery disease with previous cardiac intervention and stenting of the LAD and subsequent cardiac arrest. 9. Benign essential hypertension. 10.Diabetic peripheral neuropathy. 11.Suspected anoxic brain injury. PLAN: The patient will be given a daily interruption of sedation. Will trial her on some PSV CPAP. We will have Neurology see her. We aborted the EEG. FiO2 was dropped from 45%- 35%. Thus far microbiology is negative. We ordered a procalcitonin level. Additional recommendations and suggestions are forthcoming. We are going to have ENT see the patient for possible tracheal revision. GA / IJN: [id number] /
[2020-03-22 11:50] LABS: Glucose,Whole Blood 235 mg/dL (75-99)
[2020-03-22] MEDS: PANTOPRAZOLE 40 MG/10 ML VIAL IVP SCH (12:25)
[2020-03-22] MEDS: PIPERACILLIN-TAZOBACTAM 3.375 GM in SODIUM CHLORIDE 0.9% 100 ML IVPB SCH ×3 (12:25→23:17)
[2020-03-22] MEDS: HEPARIN SODIUM,PORCINE 5,000 UNIT/ML 1 ML VIAL SQ SCH ×3 (12:26→23:16)
[2020-03-22] MEDS: lisinopriL 5 MG TAB PO SCH (12:26)
[2020-03-22] MEDS: CHLORHEXIDINE GLUCONATE 15 ML CUP MUCOUS MEM SCH ×2 (12:26→20:10)
[2020-03-22] MEDS: SODIUM CHLORIDE 0.9% 1,000 ML IV SCH ×2 (12:26→23:00)
[2020-03-22] MEDS: ASPIRIN 81 MG PO SCH (12:26)
[2020-03-22] MEDS: GABAPENTIN 400 MG CAP PO SCH ×2 (12:26→12:41)
[2020-03-22] MEDS: EZETIMIBE 10 MG TAB PO SCH (12:26)
[2020-03-22] MEDS: PRASUGREL 10 MG TAB PO SCH (12:26)
[2020-03-22] MEDS: MORPHINE SULFATE 4 MG/ML SYRINGE IV PRN ×2 (13:05→20:10)
--- NOTE | 2020-03-22 13:20 | ECHOF ---
Referral Reason:Chest pain and cardiomyopathy MEASUREMENTS -------- HEIGHT: 167.6 cm WEIGHT: 100.2 kg BP: 145/74 RVIDd: 2.7 cm (< 3.3) IVSd: 1.3 cm (0.6 - 1.1) LVIDd: 4.2 cm (3.9 - 5.3) LVPWd: 1.1 cm (0.6 - 1.1) IVSs: 1.7 cm LVIDs: 2.6 cm LVPWs: 1.4 cm LA Diam: 3.1 cm (2.7 - 3.8) LAESV Index (A-L): 20.80 ml/m Ao Diam: 2.6 cm (2.0 - 3.7) AV Cusp: 1.7 cm (1.5 - 2.6) MV EXCURSION: 17.614 mm (> 18.000) MV EF SLOPE: 58 mm/s (70 - 150) EPSS: 0.8 cm MV E Avila: 0.99 m/s MV DecT: 299 ms MV A Avila: 1.07 m/s MV E/A Ratio: 0.92 RAP: 15.00 mmHg RVSP: 45.21 mmHg FINDINGS -------- Sinus rhythm. This was a technically adequate study. The left ventricular size is normal. There is mild concentric left ventricular hypertrophy. Overa ll left ventricular systolic function is normal with, an EF between 60 - 65 %. The right ventricle is normal in size. Normal LA size by volume 22+/-6 ml/m2. The right atrium is normal in size. Interatrial and interventricular septum intact. The aortic valve is trileaflet and appears structurally normal. There is trace to mild mitral regurgitation. Mild tricuspid regurgitation present. There is mild to moderate pulmonary hypertension. The right ventricular systolic pressure, as measured by Doppler, is 45.21mmHg. Trace/mild (physiologic) pulmonic regurgitation. The aortic root size is normal. The inferior vena cava is dilated with no significant inspiratory collapse which is consistent estima viola right atrial pressure of >15 mmHg. There is no pericardial effusion. CONCLUSIONS -------- 1. The left ventricular size is normal. 2. There is mild concentric left ventricular hypertrophy. 3. Overall left ventricular systolic function is normal with, an EF between 60 - 65 %. 4. There is trace to mild mitral regurgitation. 5. Mild tricuspid regurgitation present. 6. There is mild to moderate pulmonary hypertension. 7. The right ventricular systolic pressure, as measured by Doppler, is 45.21mmHg. 8. Trace/mild (physiologic) pulmonic regurgitation. 9. The inferior vena cava is dilated with no significant inspiratory collapse which is consistent est imated right atrial pressure of >15 mmHg. 10. There is no pericardial effusion. STAMP REDEMPTION CLERK: Kacie Almaraz RDCS
--- NOTE | 2020-03-22 13:57 | EEG ---
ELECTROENCEPHALOGRAM REPORT DATE OF SERVICE: 03/22/2020 Patient is a 64-year-old female with cardiac arrest. Patient is on ventilator on no sedation. EEG is performed to evaluate for any epileptiform activity. EEG FINDINGS: This is a 21 channel portable EEG recorded in a patient utilizing 10-20 international system with referential and bipolar montages. The recording starts and continues with presence of bilaterally symmetric, high amplitude waves, seen maximal in frontal head region. The morphology appears more triphasic type, although some sharply controlled activity was also seen. Otherwise, the background consists of diffuse 1-2 hertz generalized delta activity in the background. Photic driving response was not seen. The patient was unresponsive, but different stages of sleep was not clearly seen. IMPRESSION: This is an abnormal EEG due: 1. Background slowing of severe degree. 2. The presence of almost continuous high amplitude triphasic type waves seen in bifrontal region. 3. Occasional sharp/epileptiform appearing waves seen in bihemispheric region. 4. This EEG is suggestive of generalized cerebral dysfunction as can be seen with toxic metabolic encephalopathy or due to diffuse structural brain abnormality. High amplitude waves could be metabolic, although epileptiform also a possibility. Clinical correlation is recommended. Suggest a follow up EEG. MMODL / IJN: [id number] / STEPHANIE
--- NOTE | 2020-03-22 14:13 | P.PN ---
Progress Note - Text Progress Note Date: 03/22/20 Chief Complaint: Decreased responsiveness History of presenting complaint: This is a 64-year-old patient of Dr. Finley. Chronic stable medical conditions include hypertension, hyperlipidemia, diabetic peripheral neuropathy. was in the hospital in October 2018 having cardiac arrest following LAD angioplasty. Also pulmonary rfeuvdlg-cxkspvzjpu-ivvg was felt a left vocal cord paralysis probably from intubation. Patient was brought in by the EMS. Family had called closure short of breath. While they were on the phone vacation became unresponsive and collapsed into the bed. Then begin using a bag valve mask ventilation. When the EMS arrived patient was unresponsive she also went into ventricular fibrillation. She received 1 mg of epinephrine 1 shock and patient then came around. Downtime was about 10 minutes. Patient is in the ICU. On the ventilator. FiO2 50% and a PEEP of 5. Patient is on IV propofol and norepinephrine. Telemetry shows sinus rhythm. Has an NG tube. Per cardiology notes her EF is 35%. In the past. admitted with-cardiac arrest with underlying rhythm of ventricular fibrillation the downtime of tenderness, cardioverted, acute hypoxic respiratory failure on the ventilator, acute CHF exacerbation, lactic acidosis likely type II, aspiration pneumonia, and acute COPD exacerbation.started on IV Zosyn, IV Solu- Medrol. Initially intubated. Snyhz-FPT-sz the ventilator. FiO2 30 and a PEEP of 5. Telemetry shows sinus rhythm. Patient be put on Cleviprex drip for blood pressure. Taken off propofol since 8 AM for sedation holiday. Had some jerky movements. Put on IV Keppra per neurology. NG tube in place. Has 2 feeding. Review of systems:-Patient intubated Active Medications Acetaminophen (Acetaminophen Tab 325 Mg Tab) 650 mg PO Q4HR PRN PRN Reason: Fever and/or Mild Pain Albuterol/Ipratropium (Ipratropium-Albuterol 3 Ml Neb) 3 ml INHALATION RT-QID PRN PRN Reason: Shortness Of Breath Or Wheezing Last Admin: 03/22/20 11:15 Dose: 3 ml Documented by: Aspirin (Aspirin 81 Mg) 81 mg PO DAILY [facility] Last Admin: 03/22/20 12:26 Dose: 81 mg Documented by: Carvedilol (Carvedilol 3.125 Mg Tab) 3.125 mg PO AC-BID [facility] Last Admin: 03/22/20 06:47 Dose: 3.125 mg Documented by: Chlorhexidine Gluconate (Chlorhexidine Gluconate 15 Ml Cup) 15 ml MUCOUS MEM BID [facility] Last Admin: 03/22/20 12:26 Dose: 15 ml Documented by: Ezetimibe (Ezetimibe 10 Mg Tab) 10 mg PO DAILY [facility] Last Admin: 03/22/20 12:26 Dose: 10 mg Documented by: Gabapentin (Gabapentin 300 Mg Cap) 600 mg PO TID [facility] Heparin Sodium (Porcine) (Heparin Sodium,Porcine 5,000 Unit/Ml 1 Ml Vial) 5,000 unit SQ Q8HR [facility] Last Admin: 03/22/20 12:26 Dose: 5,000 unit Documented by: Sodium Chloride (Saline 0.9%) 1,000 mls @ 75 mls/hr IV .[id number] [facility] Last Admin: 03/22/20 12:26 Dose: 75 mls/hr Documented by: Propofol 1,000 mg/ IV Solution 100 mls @ 0 mls/hr IV .Q0M [facility]; Protocol Last Titration: 03/22/20 08:00 Dose: 0 mcg/kg/min, 0 mls/hr Documented by: Piperacillin Sod/Tazobactam (Sod 3.375 gm/ Sodium Chloride) 100 mls @ 25 mls/hr IVPB Q8HR [facility] Last Admin: 03/22/20 12:25 Dose: 25 mls/hr Documented by: Clevidipine 25 mg/ IV Solution 50 mls @ 2 mls/hr IV .Q24H [facility]; Protocol Last Titration: 03/22/20 11:58 Dose: 3 mg/hr, 6 mls/hr Documented by: Levetiracetam 750 mg/ Sodium (Chloride) 107.5 mls @ 400 mls/hr IVPB Q12HR [facility] Insulin Aspart (Insulin Aspart (Novolog) 100 Unit/Ml Vial) 0 unit SQ Q4H [facility]; Protocol Last Admin: 03/22/20 11:52 Dose: 8 unit Documented by: Insulin Detemir (Insulin Detemir (Levemir) 100 Unit/Ml Syr) 80 unit SQ HS [facility] Labetalol HCl (Labetalol 5 Mg/Ml Vial Mdv) 10 mg IVP Q10M PRN PRN Reason: Systolic >160 Last Admin: 03/22/20 10:07 Dose: 10 mg Documented by: Lidocaine HCl (Lidocaine 1% Inj 10mg/Ml (20 Ml Mdv)) 5 ml INTRATRACH Q2HR PRN PRN Reason: coughing, ventilator Lisinopril (Lisinopril 5 Mg Tab) 5 mg PO DAILY [facility] Last Admin: 03/22/20 12:26 Dose: 5 mg Documented by: Lorazepam (Lorazepam 2 Mg/Ml Inj) 1 mg IV Q4HR PRN PRN Reason: Seizures Morphine Sulfate (Morphine Sulfate 4 Mg/Ml Syringe) 4 mg IV Q4HR PRN PRN Reason: Severe Pain Last Admin: 03/22/20 13:05 Dose: 4 mg Documented by: Naloxone HCl (Naloxone 0.4 Mg/Ml 1 Ml Vial) 0.2 mg IV Q2M PRN PRN Reason: Opioid Reversal Naloxone HCl (Naloxone 0.4 Mg/Ml 1 Ml Vial) 0.2 mg IV Q2M PRN PRN Reason: Opioid Reversal Pantoprazole Sodium (Pantoprazole 40 Mg/10 Ml Vial) 40 mg IVP DAILY [facility] Last Admin: 03/22/20 12:25 Dose: 40 mg Documented by: Prasugrel (Prasugrel 10 Mg Tab) 10 mg PO DAILY [facility] Last Admin: 03/22/20 12:26 Dose: 10 mg Documented by: Physical examination: VITAL SIGNS: 98.6, 64, 18, 145/74, 99% on the ventilator GENERAL: laying in bed, intubated EYES: Pupils equal. Conjunctiva normal. HEENT: External appearance of nose and ears normal, oral cavity . NG tube NECK: JVD unable to assess, masses not palpable.stroma with the tracheostomy tube-connected to ventilator HEART: First and second heart sounds are normal; no edema. LUNGS: Respiratory rate increased, decreased breath sounds ABDOMEN: Soft, nontender, liver spleen not palpable, no masses palpable. PSYCH: Patient sedated NEUROLOGICAL: Cranial nerves grossly intact; no facial asymmetry, pupils-pin point. INVESTIGATIONS, reviewed in the clinical context: White count 13 hemoglobin 11.4 platelets 227 potassium 4.3 bun 42 creatinine 1.70 Chest x-ray possibly some infiltrate 2-D echocardiogram-EF 60-65%, mild to moderate pulmonary hypertension EEG suggestive of generalized cerebral dysfunction Admission testing White count 10.1 hemoglobin 13.4 platelets 293 potassium 5.8 bicarb 17 bun 42 creatinine 1.81 blood glucose 458 lactic acid 8.1 Troponin I less than 0.012, 0.056,0.085 EKG tracing personally reviewed by me-sinus rhythm low-voltage right bundle branch block pattern Computed tomography scan of the brain-negative Chest x-ray film personally reviewed by me-portable cardiomegaly venous prominence Assessment: -Cardiac arrest with underlying rhythm of ventricle fibrillation, with downtime of 10 minutes cardioverted, 1 dose of epinephrine -Acute hypoxic respiratory failure, requiring ventilator support-slow to respond -Acute on chronic congestive heart failure exacerbation from systolic dysfunction EF 25% -Lactic acidosis most likely type II. Cannot rule out infectious process. -Possible aspiration pneumonia -Acute COPD exacerbation in an ex-smoker, exposed to secondhand smoking-slow to respond -Possible tracheal stenosis following intubation -History of cardiac arrest following stenting to LAD -Coronary artery disease with stent to LAD -Diabetes mellitus 2 uncontrolled with hyper glycemia on insulin drip secondary to steroids -Essential hypertension -Hyperlipidemia -Diabetic peripheral neuropathy -Left vocal cord paralysis from intubation -Obesity BMI 33.9 -Consider anoxic brain injury. Likely metabolic encephalopathy. -Secondary pulmonary hypertension Plan: Patient is ICU. Intubated. On the ventilator. Off propofol since this morning. , We will cut back the dose of Neurontin to 600 mg 3 times a day. Started on Keppra per neurology. We will increase in the dose of Levemir to 80 units. Sliding scale to continue. Muscle guarded.
[2020-03-22] MEDS: levETIRAcetam IV 750 MG in SODIUM CHLORIDE 0.9% 100 ML IVPB SCH ×2 (14:42→20:10)
[2020-03-22 17:04] LABS: Glucose,Whole Blood 216 mg/dL (75-99)
[2020-03-22 20:02] LABS: Glucose,Whole Blood 206 mg/dL (75-99)
[2020-03-22] MEDS: GABAPENTIN 300 MG CAP PO SCH (20:10)
[2020-03-22] MEDS: INSULIN DETEMIR (LEVEMIR) 100 UNIT/ML SYR SQ SCH (20:26)
[2020-03-22] MEDS: LORazepam 2 MG/ML INJ IV PRN (20:36)
[2020-03-22 23:36] LABS: Glucose,Whole Blood 166 mg/dL (75-99)
[2020-03-23] MEDS: MORPHINE SULFATE 4 MG/ML SYRINGE IV PRN ×3 (03:04→12:56)
[2020-03-23] MEDS: LORazepam 2 MG/ML INJ IV PRN (03:10)
[2020-03-23 03:59] LABS: Glucose,Whole Blood 155 mg/dL (75-99)
[2020-03-23] MEDS: INSULIN ASPART (NovoLOG) 100 UNIT/ML VIAL SQ SCH ×5 (04:05→20:47)
[2020-03-23 04:07] LABS: Basophils % (A) 0 %; Eosinophils % (A) 0 %; HCT 35.2 % (34.0-46.0); Hypochromasia Slight; Lymphocytes # (A) 1.1 k/uL (1.0-4.8); Lymphocytes % (A) 11 %; MCH 28.2 pg (25.0-35.0); MCHC 31.3 g/dL (31.0-37.0); MCV 90.1 fL (80.0-100.0); Mean Platelet Volume 9.5; Monocytes # (A) 0.4 k/uL (0-1.0); Monocytes % (A) 4 %; Neutrophils # (A) 8.3 k/uL (1.3-7.7); Neutrophils % (A) 85 %; Platelet Count 181 k/uL (150-450); RBC 3.91 m/uL (3.80-5.40); RDW 14.1 % (11.5-15.5); WBC 9.9 k/uL (3.8-10.6)
[2020-03-23 04:28] LABS: Albumin 2.8 g/dL (3.5-5.0); Calcium 8.4 mg/dL (8.4-10.2); Magnesium 1.9 mg/dL (1.6-2.3); Phosphorus 3.7 mg/dL (2.5-4.5); Potassium 3.9 mmol/L (3.5-5.1); Total Bilirubin 0.5 mg/dL (0.2-1.3); Total Protein 5.7 g/dL (6.3-8.2)
[2020-03-23] MEDS ORDERED: Magnesium Replacement Protocol 1 EACH MISC MISCELLANE PRN (04:34)
[2020-03-23] MEDS ORDERED: Potassium Replacement Protocol 1 EACH MISC MISCELLANE PRN (04:34)
[2020-03-23] MEDS: MAGNESIUM SULFATE-D5W PMX 1 GM in DEXTROSE/WATER 1 100ML.BAG IVPB SCH ×2 (04:42→05:44)
[2020-03-23] MEDS ORDERED: POTASSIUM BICARBONATE/CIT AC 20 MEQ TABLET.EFF NG-TUBE SCH (05:00)
[2020-03-23 05:05] LABS: ABG HCO3 25 mmol/L (21-25); ABG Oxygen Saturation 99.2 % (94-97); ABG PCO2 46 mmHg (35-45); ABG PH 7.34 (7.35-7.45); ABG PO2 106 mmHg (83-108); ABG TCO2 26 mmol/L (19-24); Allen Test Performed? Yes
[2020-03-23 05:42] LABS: Hemoglobin A1C 9.6 % (4.0-6.0)
[2020-03-23] MEDS ORDERED: methylPREDNISolone SOD SUCCI 125 MG/2 ML VIAL ONE (06:00)
[2020-03-23] MEDS: carvediloL 3.125 MG TAB PO SCH ×2 (06:41→16:53)
[2020-03-23] MEDS: IPRATROPIUM-ALBUTEROL 3 ML NEB INHALATION PRN ×4 (07:19→19:09)
[2020-03-23 08:32] LABS: Glucose,Whole Blood 141 mg/dL (75-99)
[2020-03-23] MEDS: PIPERACILLIN-TAZOBACTAM 3.375 GM in SODIUM CHLORIDE 0.9% 100 ML IVPB SCH ×3 (08:36→23:47)
[2020-03-23] MEDS: HEPARIN SODIUM,PORCINE 5,000 UNIT/ML 1 ML VIAL SQ SCH ×3 (08:37→23:47)
[2020-03-23] MEDS: PRASUGREL 10 MG TAB PO SCH (08:37)
[2020-03-23] MEDS: ASPIRIN 81 MG PO SCH (08:37)
[2020-03-23] MEDS: CHLORHEXIDINE GLUCONATE 15 ML CUP MUCOUS MEM SCH ×2 (08:37→20:47)
[2020-03-23] MEDS: EZETIMIBE 10 MG TAB PO SCH (08:37)
[2020-03-23] MEDS: lisinopriL 5 MG TAB PO SCH (08:38)
[2020-03-23] MEDS: PANTOPRAZOLE 40 MG/10 ML VIAL IVP SCH (08:38)
[2020-03-23] MEDS: GABAPENTIN 300 MG CAP PO SCH ×3 (08:38→21:24)
--- NOTE | 2020-03-23 08:52 | XR ---
EXAMINATION TYPE: XR chest 1V portable DATE OF EXAM: 03/23/2020 CLINICAL HISTORY: Tube placement TECHNIQUE: Portable semiupright view of the chest COMPARISON: 03/22/2020 FINDINGS: Tracheostomy tube overlies the tracheal air column. Enteric tube coursing over the left up per quadrant with nonvisualization of the distal tip or side port. Small bilateral pleural effusions and patchy airspace opacities unchanged versus 03/22/2020. No pneumothorax. Cardiac silhouette unchan ged. IMPRESSION: Unchanged small bilateral pleural effusions and bibasilar airspace opacities.
[2020-03-23] MEDS: levETIRAcetam IV 750 MG in SODIUM CHLORIDE 0.9% 100 ML IVPB SCH ×2 (09:21→21:22)
--- NOTE | 2020-03-23 09:24 | CDI ---
Documentation Clarification Form Date: 03/23/2020 09:10:48 AM From: Sarah Plasencia RN, CCDS Admit Date: 03/20/2020 01:26:00 AM Patient Name: Nicolasa Fortune Visit Number: [id number] ATTENTION: The Clinical Documentation Specialists (CDI) and [facility] Coding Staff appreciate your assistance in clarifying documentation. Please respond to the clarification below the line at the bottom and electronically sign. The CDI & [facility] Coding staff will review the response and follow-up if needed. Please note: Queries are made part of the Legal Health Record. If you have any questions, please contact the author of this message via ITS. Dr. Maico Blunt Renal insufficiency is documented in the Neurology Consult in a patient with elevated renal functions s/p cardiac arrest and requires further specificity History/Risk Factors: 05/26/2019 Patients baseline BUN/CR/GFR: 39/1.2/48 HX:03/20 Cardiac arrest with 10 minute downtime, Acute on chronic systolic CHF, COPD, previous cardiac arrest, DM2 uncontrolled with hyperglycemia, HTN, HLD, DM peripheral neuropathy Clinical Indicators: 03/19-03/25 Current BUN: 42/44/36/42/40 Cr: 1.81/1.79/1.55/1.7/1.44 GFR: 29/35/31/38 Treatment: Coreg 3.125MG PO BID 03/22 Trandate 10 mg IVP Q 10 min systolic >160 03/19 2L 0.9% NS IVF Bolus followed by 75 cc/hr. In order to capture the severity of condition, please clarify if the condition signifies: Acute renal failure, Please specify etiology (if known): Cortical Necrosis Medullary Necrosis Tubular Necrosis Acute kidney injury Acute on chronic renal failure CKD Stage 1 GFR >90 CKD Stage 2 GFR 60-89 CKD Stage 3 GFR 30-59 CKD Stage 4 GFR 15-29 CKD Stage 5 GFR <15 Chronic renal failure/Chronic Kidney disease (CKD) please stage (if known): CKD Stage 1 GFR >90 CKD Stage 2 GFR 60-89 CKD Stage 3 GFR 30-59 CKD Stage 4 GFR 15-29 CKD Stage 5 GFR <15 ESRD Other, please specify Unable to determine (Last Revision: September 2017) Acute kidney injury, likely ATN MTDD
--- NOTE | 2020-03-23 10:18 | PN ---
PROGRESS NOTE PULMONARY/CRITICAL CARE PROGRESS NOTE: DATE OF SERVICE: 03/23/2020 Critical care time 34 minutes. This is a patient who is status post [id number] cardiopulmonary arrest, with about a 10-minute resuscitation. The patient apparently was predominantly a ventricular fibrillation arrest as well as pulseless electrical activity arrest. Again, the resuscitation period was about 10 minutes or so. Currently, the patient is on the mechanical ventilator. She had a small tracheal stoma and EMS was able to put a pediatric tracheostomy tube into the stoma at the scene. Currently, she remains on the ventilator. She is on the pressure support mode with 15 cm of water of pressure support and 5 cm water of CPAP. FiO2 is 35%. Blood gases this morning were PO2 of 106, pCO2 of 46 and pH of 7.34. The patient is getting saline at 75 mL an hour and Vital high-protein at 58 with a goal of 58 mL an hour. She was on Cleviprex yesterday but that has been turned off. In addition, the patient may have sustained anoxic brain injury according to initial EEG and Dr. Russell's Neurology note. A repeat EEG is scheduled for today at 1. In addition, the patient may be having some underlying seizure activity and antiseizure medications were started. Also, the patient may have sustained an episode of aspiration. She does have a history of systolic CHF, ischemic cardiomyopathy, vocal cord paralysis and previous tracheostomy, COPD, history of CAD with previous cardiac intervention and stenting of the LAD, with subsequent cardiac arrest, essential hypertension, peripheral neuropathy secondary to diabetes, and has had mentioned above suspected anoxic brain injury. I did talk to the patient's daughter, whose name is also Nicolasa. I gave her a couple different scenarios including tracheostomy revision, permanent tracheostomy, transfer to a specialized nursing facility on the ventilator, versus recovery. She is going to give things some thought pending the EEG today. Current vital signs are reviewed. Temperature is 98.2, heart rate 63, respiratory rate 12, blood pressure 145/59, saturations are 97%. Currently appears in no acute distress. She is not responsive to verbal stimuli. She does withdraw from painful stimuli. Her pupils are midpoint and sluggish. She does have doll's eyes reflex. She does trigger the ventilator. She does have a gag reflex. HEENT: Examination is grossly unremarkable. NECK: Supple. There is a midline tracheostomy tube in place. No adenopathy or thyromegaly. CARDIOVASCULAR: Examination reveals regular rhythm rate. Heart rate 63. S1, S2 normal. There is no murmur. LUNGS: Reveal diffuse coarse rhonchi. Breath sounds equal. No crackles or wheezes. ABDOMEN: Soft. Bowel sounds are heard. EXTREMITIES: Intact. There is no significant edema. SKIN: Without rash. NEUROLOGIC: Examination is as above. She does not respond verbally. LABS: Reviewed. White count 9.9, hemoglobin 11, hematocrit 35.2, platelet count 181,000. Sodium 144, potassium 3.9, chloride is 116, CO2 is 25, anion gap is 3. BUN and creatinine were 40 and 1.44. Microbiology is negative. Chest x-ray shows some bibasilar airspace opacities and small bilateral pleural effusions. CURRENT MEDICATIONS: Again reviewed. She is currently on Tylenol, aspirin, Coreg, chlorhexidine, Zetia, gabapentin subcu heparin, insulin per protocol, DuoNeb, p.r.n., labetalol, Keppra, lisinopril, Ativan p.r.n., magnesium replacement, morphine, Narcan, Protonix, Zosyn, Effient, potassium replacement, and propofol. ASSESSMENT: 1. Status post [id number]-bz-niovqiiz cardiopulmonary arrest with about 10 minutes of resuscitation with eventual return of spontaneous circulation, in a patient with a predominantly ventricular fibrillation/pulseless electrical activity arrest. 2. Status post mechanical ventilation with insertion of a pediatric tracheostomy tube and a prior tracheal stoma site for hypoxemic respiratory failure. 3. Possible aspiration pneumonia. 4. Acute systolic congestive heart failure. 5. Ischemic cardiomyopathy. 6. History of vocal cord paralysis and previous tracheostomy. 7. History of chronic obstructive pulmonary disease. 8. History of coronary artery disease with previous cardiac intervention and stenting of the LAD and subsequent cardiac arrest. 9. Benign essential hypertension. 10.Diabetic peripheral neuropathy. 11.Suspected anoxic brain injury and underlying seizure activity. PLAN: I had a long discussion with the patient's daughter whose name is also Nicolasa. She understands the gravity of the situation. She will await the results of the EEG today. If the patient continues to show evidence of significant anoxic brain injury, she may at that point decided to withdraw life support. She would agree to a tracheostomy. She does not want her mother to a long-term care facility on the ventilator. Additional recommendations and suggestions are forthcoming. Prognosis is guarded. She will continue getting nourished. She is off the Cleviprex. Critical care time 34 minutes. GA / AYUSH: [id number] /
--- NOTE | 2020-03-23 10:58 | P.PN ---
Subjective Progress Note Date: 03/23/20 This is a pleasant 64-year-old female with history of coronary artery disease, prior stent placement, history of prior cardiac arrest in October 2018 at which time patient was having a stent placed in the LAD, she went into cardiac arrest at that time. During that admission, patient had a prolonged hospitalization requiring intubation and mechanical ventilation . Patient also has a history of COPD, hypertension, hyperlipidemia, vocal cord paralysis. Patient was brought to the hospital on this occasion following a cardiopulmonary arrest , EMS arrived at the scene, patient was unresponsive, pulseless. She was noted to go into ventricular fibrillation, was given epinephrine and shocked times one. CPR lasted approximately 5 minutes. Patient continues to be in the intensive care unit, she was evaluated this morning, continues to be intubated and mechanically ventilated. They are attempting to wean this morning, yesterday there was an attempt at coming down on sedation, unsuccessful. Patient did have an echocardiogram with Doppler study performed, results are yet pending. Neurologically, patient is still sedated, they are coming down on sedation today. She continues to be on propofol. Blood pressure this morning 144/74 with a heart rate in the 60s. She continues this morning to be in a normal sinus rhythm. Patient may be a candidate for an AICD, may also consider possible cardiac catheterization before AICD implantation. Chest x-ray shows probable atelectasis, bibasilar, possible pneumonia. Laboratory data from today was reviewed, white blood cell count 13.0, hemoglobin 11.4, platelet count 227. Sodium 139, potassium 4.3, BUN 42, creatinine 1.7. Blood gases were also obtained this morning, pH of 7.4, pCO2 36, pO2 127, HCO3 22, O2 saturation 99.6. 03/23/2020 Patient was seen and examined this morning . Continues to be on ventilatory support. She is currently off propofol, patient may have sustained anoxic brain injury according to the initial EEG and Dr. Ernie rowland's neurology note. A repeat EEG is scheduled for today at 1:00. Patient may also be having some underlying seizure activity and antiseizure medications were added.he gave her different scenarios including tracheostomy revision, permanent tracheostomy, transfer to a specialized nursing facility on a ventilator, versus recovery. The daughter wishes to think this over pending the repeat EEG today. Her blood pressure today 144/60 with a heart rate in the 60s, temperature 98.2, saturations 97%. She is not responsive to verbal stimuli. Objective - Vital Signs Vital signs: Vital Signs Temp 98.2 F 03/23/20 08:00 Pulse 65 03/23/20 10:00 Resp 14 03/23/20 10:00 BP 134/68 03/23/20 10:00 Pulse Ox 97 03/23/20 10:00 Intake & Output 03/22/20 03/23/20 03/23/20 18:59 06:59 18:59 Intake Total 6944.840 0777.533 535 Output Total 1125 925 230 Balance 841.054 4625.533 305 Weight 100.6 kg 101.5 kg Intake: IV 950 1200 331 Magnesium Sulfate-D5w Pmx 200 1 gm In Dextrose/Water 1 100ml.bag @ 100 mls/hr IVPB Q1H [facility] Rx#: [id number] Piperacillin-Tazobactam 3 200 100 100 .375 gm In Sodium Chloride 0.9% 100 ml @ 25 mls/hr IVPB Q8HR [facility] Rx# :[id number] Pressure bag 6 Sodium Chloride 0.9% 1, 750 900 225 000 ml @ 75 mls/hr IV . [id number] GREG Rx#:[id number] Intake, IV Titration 53.162 25.533 Amount Clevidipine Butyrate 25 30.933 25.533 mg In Empty Bag 1 bag @ 1 MG/HR 2 mls/hr IV .Q24H [facility] Rx#:[id number] propofoL 1,000 mg In 22.229 Empty Bag 1 bag @ Titrate IV .Q0M [facility]REG Rx#: [id number] Tube Feeding 327 621 174 Other 60 90 30 Output: Urine 1125 925 230 Other: Voiding Method Indwelling Catheter Indwelling Catheter Indwelling Catheter ABP, PAP, CO, CI - Last Documented Arterial Blood Pressure 147/61 - Exam PHYSICAL EXAMINATION: GENERAL: 64-year-old female, on mechanical ventilation, in no distress, not responding to verbal stimuli, she does withdraw from painful stimuli HEENT: Head is atraumatic, normocephalic. Pupils equal,pinpoint. Sclera ani cteric. Conjunctiva are clear. Mucous membranes of the mouth are moist. Neck is supple. There is no elevated jugular venous pressure. Tracheostomy tube is intact. Orogastric tube is intact. HEART EXAMINATION: [Heart S1, S2 normal. No murmur or gallop heard.] CHEST EXAMINATION: Lungs reveal scattered coarse rhonchi ABDOMEN: [ Soft, nontender. Bowel sounds are heard. No organomegaly noted]. EXTREMITIES:[ 2+ peripheral pulses with trace evidence of peripheral edema and no calf tenderness noted]. NEUROLOGIC patient is unresponsive to any stimuli at this point . - Labs CBC & Chem 7: 03/23/20 04:00 03/23/20 04:00 Labs: Abnormal Lab Results - Last 24 Hours (Table) 03/22/20 03/22/20 03/22/20 Range/Units 04:00 04:00 05:43 Hgb (11.4-16.0) gm/dL Neutrophils # (1.3-7.7) k/uL ABG pH (7.35-7.45) ABG pCO2 46 H (35-45) mmHg ABG pO2 316 H (83-108) mmHg ABG HCO3 28 H (21-25) mmol/L ABG Total CO2 29 H (19-24) mmol/L ABG O2 Saturation 99.1 H (94-97) % Chloride (98-107) mmol/L BUN (7-17) mg/dL Creatinine (0.52-1.04) mg/dL Glucose (74-99) mg/dL POC Glucose (mg/dL) (75-99) mg/dL Hemoglobin A1c 9.6 H (4.0-6.0) % Total Protein (6.3-8.2) g/dL Albumin (3.5-5.0) g/dL Procalcitonin 0.28 H (0.02-0.09) ng/mL 03/22/20 03/22/20 03/22/20 Range/Units 11:49 16:45 20:00 Hgb (11.4-16.0) gm/dL Neutrophils # (1.3-7.7) k/uL ABG pH (7.35-7.45) ABG pCO2 (35-45) mmHg ABG pO2 (83-108) mmHg ABG HCO3 (21-25) mmol/L ABG Total CO2 (19-24) mmol/L ABG O2 Saturation (94-97) % Chloride (98-107) mmol/L BUN (7-17) mg/dL Creatinine (0.52-1.04) mg/dL Glucose (74-99) mg/dL POC Glucose (mg/dL) 235 H 216 H 206 H (75-99) mg/dL Hemoglobin A1c (4.0-6.0) % Total Protein (6.3-8.2) g/dL Albumin (3.5-5.0) g/dL Procalcitonin (0.02-0.09) ng/mL 03/22/20 03/23/20 03/23/20 Range/Units 23:35 03:58 04:00 Hgb 11.0 L (11.4-16.0) gm/dL Neutrophils # 8.3 H (1.3-7.7) k/uL ABG pH (7.35-7.45) ABG pCO2 (35-45) mmHg ABG pO2 (83-108) mmHg ABG HCO3 (21-25) mmol/L ABG Total CO2 (19-24) mmol/L ABG O2 Saturation (94-97) % Chloride (98-107) mmol/L BUN (7-17) mg/dL Creatinine (0.52-1.04) mg/dL Glucose (74-99) mg/dL POC Glucose (mg/dL) 166 H 155 H (75-99) mg/dL Hemoglobin A1c (4.0-6.0) % Total Protein (6.3-8.2) g/dL Albumin (3.5-5.0) g/dL Procalcitonin (0.02-0.09) ng/mL 03/23/20 03/23/20 03/23/20 Range/Units 04:00 05:03 08:30 Hgb (11.4-16.0) gm/dL Neutrophils # (1.3-7.7) k/uL ABG pH 7.34 L (7.35-7.45) ABG pCO2 46 H (35-45) mmHg ABG pO2 (83-108) mmHg ABG HCO3 (21-25) mmol/L ABG Total CO2 26 H (19-24) mmol/L ABG O2 Saturation 99.2 H (94-97) % Chloride 116 H (98-107) mmol/L BUN 40 H (7-17) mg/dL Creatinine 1.44 H (0.52-1.04) mg/dL Glucose 160 H (74-99) mg/dL POC Glucose (mg/dL) 141 H (75-99) mg/dL Hemoglobin A1c (4.0-6.0) % Total Protein 5.7 L (6.3-8.2) g/dL Albumin 2.8 L (3.5-5.0) g/dL Procalcitonin (0.02-0.09) ng/mL Microbiology - Last 24 Hours (Table) 03/20/20 00:01 Blood Culture - Preliminary Blood No Growth after 72 hours Assessment and Plan Plan: Assessment and plan #1 cardiac arrest, evidence of ventricular fibrillation. Patient has history of prior cardiac arrest in October 2018, LAD was stented at that time. #2 hyperlipidemia #3 ischemic cardiomyopathy with prior documented ejection fraction of 35% #4 hypertension #5 mild systolic congestive heart failure acute on chronic #6 history of vocal cord paralysis and tracheostomy #7 COPD #8 prior history of smoking #9 diabetes #10 suspected anoxic brain injury and underlying seizure activity Plan The patient's echocardiogram with Doppler study revealed an ejection fraction of 60-65%. We will continue to use labetalol for blood pressure and heart rate control. Patient will have a repeat EEG today, if the patient continues to show evidence of significant anoxic brain injury, life-support may be withdrawn at that time. Pulmonary care are in communication with the patient's daughter. Cheng li prognosis is guarded. DNP note has been reviewed, I agree with a documented findings and plan of care. Patient was seen and examined.
[2020-03-23 12:32] LABS: Glucose,Whole Blood 93 mg/dL (75-99)
[2020-03-23] MEDS: SODIUM CHLORIDE 0.9% 1,000 ML IV SCH (12:41)
[2020-03-23] MEDS: LABETALOL 5 MG/ML VIAL MDV IVP PRN ×3 (13:14→19:00)
--- NOTE | 2020-03-23 15:12 | P.PN ---
Subjective Progress Note Date: 03/23/20 Patient is off sedation, no signs of clinical improvement. Continues to be severely encephalopathic. Does not follow commands. Please refer to examination below. No seizure-like activity witnessed. Objective - Vital Signs Vital signs: Vital Signs Temp 98.2 F 03/23/20 12:00 Pulse 64 03/23/20 15:00 Resp 13 03/23/20 15:00 BP 143/77 03/23/20 15:00 Pulse Ox 98 03/23/20 15:00 Intake & Output 03/22/20 03/23/20 03/23/20 18:59 06:59 18:59 Intake Total 0278.091 1349.533 1373 Output Total 1125 925 790 Balance 024.448 9533.533 583 Weight 100.6 kg 101.5 kg Intake: IV 950 1200 799 Magnesium Sulfate-D5w Pmx 200 1 gm In Dextrose/Water 1 100ml.bag @ 100 mls/hr IVPB Q1H [facility] Rx#: [id number] Piperacillin-Tazobactam 3 200 100 175 .375 gm In Sodium Chloride 0.9% 100 ml @ 25 mls/hr IVPB Q8HR [facility] Rx# :[id number] Pressure bag 24 Sodium Chloride 0.9% 1, 750 900 600 000 ml @ 75 mls/hr IV . [id number] [facility] Rx#:[id number] Intake, IV Titration 53.162 25.533 Amount Clevidipine Butyrate 25 30.933 25.533 mg In Empty Bag 1 bag @ 1 MG/HR 2 mls/hr IV .Q24H [facility] Rx#:[id number] propofoL 1,000 mg In 22.229 Empty Bag 1 bag @ Titrate IV .Q0M [facility] Rx#: [id number] Tube Feeding 327 621 514 Other 60 90 60 Output: Urine 1125 925 790 Other: Voiding Method Indwelling Catheter Indwelling Catheter Indwelling Catheter ABP, PAP, CO, CI - Last Documented Arterial Blood Pressure 152/59 - Exam On examination patient is an elderly female, who is severely obtunded, unresponsive to calling her name. With painful stimuli, she did extend her head slightly, and open eyes, but no eye contact, no tracking. Completely blank stare. No seizure-like activity noticed. Pupils are 3-4 mm, sluggishly reacting. Patient has right lenticular opacity. Oculocephalics could not be checked because of tracheostomy. Patient has bilateral Babinski. - Labs CBC & Chem 7: 03/23/20 04:00 03/23/20 04:00 Labs: Abnormal Lab Results - Last 24 Hours (Table) 03/22/20 03/22/20 03/22/20 Range/Units 04:00 04:00 16:45 Hgb (11.4-16.0) gm/dL Neutrophils # (1.3-7.7) k/uL ABG pH (7.35-7.45) ABG pCO2 (35-45) mmHg ABG Total CO2 (19-24) mmol/L ABG O2 Saturation (94-97) % Chloride (98-107) mmol/L BUN (7-17) mg/dL Creatinine (0.52-1.04) mg/dL Glucose (74-99) mg/dL POC Glucose (mg/dL) 216 H (75-99) mg/dL Hemoglobin A1c 9.6 H (4.0-6.0) % Total Protein (6.3-8.2) g/dL Albumin (3.5-5.0) g/dL Procalcitonin 0.28 H (0.02-0.09) ng/mL 03/22/20 03/22/20 03/23/20 Range/Units 20:00 23:35 03:58 Hgb (11.4-16.0) gm/dL Neutrophils # (1.3-7.7) k/uL ABG pH (7.35-7.45) ABG pCO2 (35-45) mmHg ABG Total CO2 (19-24) mmol/L ABG O2 Saturation (94-97) % Chloride (98-107) mmol/L BUN (7-17) mg/dL Creatinine (0.52-1.04) mg/dL Glucose (74-99) mg/dL POC Glucose (mg/dL) 206 H 166 H 155 H (75-99) mg/dL Hemoglobin A1c (4.0-6.0) % Total Protein (6.3-8.2) g/dL Albumin (3.5-5.0) g/dL Procalcitonin (0.02-0.09) ng/mL 03/23/20 03/23/20 03/23/20 Range/Units 04:00 04:00 05:03 Hgb 11.0 L (11.4-16.0) gm/dL Neutrophils # 8.3 H (1.3-7.7) k/uL ABG pH 7.34 L (7.35-7.45) ABG pCO2 46 H (35-45) mmHg ABG Total CO2 26 H (19-24) mmol/L ABG O2 Saturation 99.2 H (94-97) % Chloride 116 H (98-107) mmol/L BUN 40 H (7-17) mg/dL Creatinine 1.44 H (0.52-1.04) mg/dL Glucose 160 H (74-99) mg/dL POC Glucose (mg/dL) (75-99) mg/dL Hemoglobin A1c (4.0-6.0) % Total Protein 5.7 L (6.3-8.2) g/dL Albumin 2.8 L (3.5-5.0) g/dL Procalcitonin (0.02-0.09) ng/mL 03/23/20 Range/Units 08:30 Hgb (11.4-16.0) gm/dL Neutrophils # (1.3-7.7) k/uL ABG pH (7.35-7.45) ABG pCO2 (35-45) mmHg ABG Total CO2 (19-24) mmol/L ABG O2 Saturation (94-97) % Chloride (98-107) mmol/L BUN (7-17) mg/dL Creatinine (0.52-1.04) mg/dL Glucose (74-99) mg/dL POC Glucose (mg/dL) 141 H (75-99) mg/dL Hemoglobin A1c (4.0-6.0) % Total Protein (6.3-8.2) g/dL Albumin (3.5-5.0) g/dL Procalcitonin (0.02-0.09) ng/mL Microbiology - Last 24 Hours (Table) 03/20/20 00:01 Blood Culture - Preliminary Blood No Growth after 72 hours Assessment and Plan Assessment: * 64-year-old female, who has tracheostomy since March 2019, had a witnessed respiratory arrest followed by cardiac arrest at home, with downtime of about 10 minutes, although patient's daughter stating <5 minutes. Patient is 4 days post cardiac arrest, still showing no signs of clinical improvement. She is off sedation since yesterday. 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 * History of cardiac arrest in October 2018. * History of vocal cord paralysis and previous tracheostomy. * COPD * Diabetes * Hypertension * Mild renal insufficiency. * X tobacco use Plan: * Patient continues to be severely encephalopathic. Patient showing no signs of clinical improvement. No seizure-like activity noticed. * Repeat EEG today revealed diffuse slowing in moderate to high amplitude delta range, consistent with severe encephalopathy. No epileptiform activity was seen on this study. * Continue Keppra 750 mg twice a day (adjusted to her renal functions). * Patient on Neurontin 600 mg 3 times a day. We will decrease dose to 300 mg 3 times a day based upon her renal functions.
--- NOTE | 2020-03-23 15:21 | EEG ---
ELECTROENCEPHALOGRAM REPORT DATE OF SERVICE: 03/23/2020 PREAMBLE: This is a 64-year-old female with recent history of cardiac arrest. This is a followup EEG performed today. EEG FINDINGS: This is a 21 channel portable EEG recording in a patient utilizing 10-20 international system with referential and bipolar montages. The recording starts and continues with presence of diffuse moderate to high voltage activity in generalized 1-2 hertz delta activity seen in bihemispheric region. Occasional periods of brief suppressed pattern was also seen. No focal or generalized epileptiform activity was seen in the entire study. IMPRESSION: This is an abnormal EEG due to continuous generalized slowing in high amplitude 1-2 Hz delta range. This is suggestive of generalized cerebral dysfunction as can be seen with toxic metabolic encephalopathy or due to diffuse structural brain abnormality. No epileptiform activity was seen. When compared to the EEG from yesterday, the sharp looking waves were not seen in the current study. MMAMITA / CARMENN: [id number] / MTDD
[2020-03-23 16:12] LABS: Glucose,Whole Blood 119 mg/dL (75-99)
[2020-03-23] MEDS: CLEVIDIPINE BUTYRATE 25 MG in EMPTY BAG 1 BAG IV SCH ×2 (19:14→23:46)
--- NOTE | 2020-03-23 19:56 | P.PN ---
Progress Note - Text Progress Note Date: 03/23/20 Chief Complaint: Decreased responsiveness History of presenting complaint: This is a 64-year-old patient of Dr. Finley. Chronic stable medical conditions include hypertension, hyperlipidemia, diabetic peripheral neuropathy. was in the hospital in October 2018 having cardiac arrest following LAD angioplasty. Also pulmonary [id number]-[id number] was felt a left vocal cord paralysis probably from intubation. Patient was brought in by the EMS. Family had called closure short of breath. While they were on the phone vacation became unresponsive and collapsed into the bed. Then begin using a bag valve mask ventilation. When the EMS arrived patient was unresponsive she also went into ventricular fibrillation. She received 1 mg of epinephrine 1 shock and patient then came around. Downtime was about 10 minutes. Patient is in the ICU. On the ventilator. FiO2 50% and a PEEP of 5. Patient is on IV propofol and norepinephrine. Telemetry shows sinus rhythm. Has an NG tube. Per cardiology notes her EF is 35%. In the past. admitted with-cardiac arrest with underlying rhythm of ventricular fibrillation the downtime of tenderness, cardioverted, acute hypoxic respiratory failure on the ventilator, acute CHF exacerbation, lactic acidosis likely type II, aspiration pneumonia, and acute COPD exacerbation.started on IV Zosyn, IV Solu- Medrol. Initially intubated. Put on Cleviprex drip for blood pressure. Based on EEG placed on IV Keppra per neurology. Dose of Neurontin scaled back. Because of renal failure. [id number] the ventilator. FiO2 35 and a PEEP of 5. NG tube in place. Telemetry shows sinus rhythm. [address] Patient been off sedation since yesterday. Patient has brainstem reflexes present. Otherwise no purposeful movements. Review of systems:-Patient intubated Active Medications Acetaminophen (Acetaminophen Tab 325 Mg Tab) 650 mg PO Q4HR PRN PRN Reason: Fever and/or Mild Pain Albuterol/Ipratropium (Ipratropium-Albuterol 3 Ml Neb) 3 ml INHALATION RT-QID PRN PRN Reason: Shortness Of Breath Or Wheezing Last Admin: 03/23/20 19:09 Dose: 3 ml Documented by: Aspirin (Aspirin 81 Mg) 81 mg PO DAILY GREG Last Admin: 03/23/20 08:37 Dose: 81 mg Documented by: Carvedilol (Carvedilol 3.125 Mg Tab) 3.125 mg PO AC-BID [facility] Last Admin: 03/23/20 16:53 Dose: 3.125 mg Documented by: Chlorhexidine Gluconate (Chlorhexidine Gluconate 15 Ml Cup) 15 ml MUCOUS MEM BID [facility] Last Admin: 03/23/20 08:37 Dose: 15 ml Documented by: Ezetimibe (Ezetimibe 10 Mg Tab) 10 mg PO DAILY [facility] Last Admin: 03/23/20 08:37 Dose: 10 mg Documented by: Gabapentin (Gabapentin 300 Mg Cap) 300 mg PO TID [facility] Last Admin: 03/23/20 16:53 Dose: 300 mg Documented by: Heparin Sodium (Porcine) (Heparin Sodium,Porcine 5,000 Unit/Ml 1 Ml Vial) 5,000 unit SQ Q8HR [facility] Last Admin: 03/23/20 16:53 Dose: 5,000 unit Documented by: Sodium Chloride (Saline 0.9%) 1,000 mls @ 75 mls/hr IV .[id number] [facility] Last Admin: 03/23/20 12:41 Dose: 75 mls/hr Documented by: Propofol 1,000 mg/ IV Solution 100 mls @ 0 mls/hr IV .Q0M [facility]; Protocol Last Titration: 03/22/20 08:00 Dose: 0 mcg/kg/min, 0 mls/hr Documented by: Piperacillin Sod/Tazobactam (Sod 3.375 gm/ Sodium Chloride) 100 mls @ 25 mls/hr IVPB Q8HR [facility] Last Admin: 03/23/20 16:53 Dose: 25 mls/hr Documented by: Levetiracetam 750 mg/ Sodium (Chloride) 107.5 mls @ 400 mls/hr IVPB Q12HR [facility] Last Admin: 03/23/20 09:21 Dose: 400 mls/hr Documented by: Clevidipine 25 mg/ IV Solution 50 mls @ 2 mls/hr IV .Q24H [facility]; Protocol Last Titration: 03/23/20 19:18 Dose: 2 mg/hr, 4 mls/hr Documented by: Insulin Aspart (Insulin Aspart (Novolog) 100 Unit/Ml Vial) 0 unit SQ Q4H [facility]; Protocol Last Admin: 03/23/20 16:11 Dose: Not Given Documented by: Insulin Detemir (Insulin Detemir (Levemir) 100 Unit/Ml Syr) 80 unit SQ HS [facility] Last Admin: 03/22/20 20:26 Dose: 80 unit Documented by: Labetalol HCl (Labetalol 5 Mg/Ml Vial Mdv) 10 mg IVP Q10M PRN PRN Reason: Systolic >160 Last Admin: 03/23/20 19:00 Dose: 10 mg Documented by: Lidocaine HCl (Lidocaine 1% Inj 10mg/Ml (20 Ml Mdv)) 5 ml INTRATRACH Q2HR PRN PRN Reason: coughing, ventilator Lisinopril (Lisinopril 5 Mg Tab) 5 mg PO DAILY [facility] Last Admin: 03/23/20 08:38 Dose: 5 mg Documented by: Lorazepam (Lorazepam 2 Mg/Ml Inj) 1 mg IV Q4HR PRN PRN Reason: Seizures Last Admin: 03/23/20 03:10 Dose: 1 mg Documented by: Miscellaneous Information (Potassium Replacement Protocol 1 Each Misc) 1 each MISCELLANE DAILY PRN; Protocol PRN Reason: Per Protocol Miscellaneous Information (Magnesium Replacement Protocol 1 Each Misc) 1 each MISCELLANE DAILY PRN; Protocol PRN Reason: Per Protocol Morphine Sulfate (Morphine Sulfate 4 Mg/Ml Syringe) 4 mg IV Q4HR PRN PRN Reason: Severe Pain Last Admin: 03/23/20 12:56 Dose: 4 mg Documented by: Naloxone HCl (Naloxone 0.4 Mg/Ml 1 Ml Vial) 0.2 mg IV Q2M PRN PRN Reason: Opioid Reversal Naloxone HCl (Naloxone 0.4 Mg/Ml 1 Ml Vial) 0.2 mg IV Q2M PRN PRN Reason: Opioid Reversal Pantoprazole Sodium (Pantoprazole 40 Mg/10 Ml Vial) 40 mg IVP DAILY [facility] Last Admin: 03/23/20 08:38 Dose: 40 mg Documented by: Prasugrel (Prasugrel 10 Mg Tab) 10 mg PO DAILY [facility] Last Admin: 03/23/20 08:37 Dose: 10 mg Documented by: Physical examination: VITAL SIGNS: 98.2, 63, 13, 130s over 94, 98% on the ventilator GENERAL: laying in bed, intubated EYES: Pupils equal. Conjunctiva normal. HEENT: External appearance of nose and ears normal, oral cavity . NG tube NECK: JVD unable to assess, masses not palpable.stroma with the tracheostomy tube-connected to ventilator HEART: First and second heart sounds are normal; no edema. LUNGS: Respiratory rate increased, decreased breath sounds ABDOMEN: Soft, nontender, liver spleen not palpable, no masses palpable. PSYCH: Patient sedated NEUROLOGICAL: Pupils sluggish. Corneal reflex present. Gag reflex present. No spontaneous movements. INVESTIGATIONS, reviewed in the clinical context: White count 9.9 hemoglobin 11 platelets 181 potassium 3.9 creatinine 1.44 Chest x-ray possibly some infiltrate 2-D echocardiogram-EF 60-65%, mild to moderate pulmonary hypertension Repeat EEG-March 23-showing generalized cerebral dysfunction EEG suggestive of generalized cerebral dysfunction Admission testing White count 10.1 hemoglobin 13.4 platelets 293 potassium 5.8 bicarb 17 bun 42 creatinine 1.81 blood glucose 458 lactic acid 8.1 Troponin I less than 0.012, 0.056,0.085 EKG tracing personally reviewed by me-sinus rhythm low-voltage right bundle branch block pattern Computed tomography scan of the brain-negative Chest x-ray film personally reviewed by me-portable cardiomegaly venous prominence Assessment: -Cardiac arrest with underlying rhythm of ventricle fibrillation, with downtime of 10 minutes cardioverted, 1 dose of epinephrine -Acute hypoxic respiratory failure, requiring ventilator support-slow to respond -Acute on chronic congestive heart failure exacerbation from systolic dysfunction EF 25% -Lactic acidosis most likely type II. Cannot rule out infectious process. -Possible aspiration pneumonia -Acute COPD exacerbation in an ex-smoker, exposed to secondhand smoking-slow to respond -Possible tracheal stenosis following intubation -History of cardiac arrest following stenting to LAD -Coronary artery disease with stent to LAD -Diabetes mellitus 2 uncontrolled with hyper glycemia on insulin drip secondary to steroids -Essential hypertension -Hyperlipidemia -Diabetic peripheral neuropathy -Left vocal cord paralysis from intubation -Obesity BMI 33.9 -Consider anoxic brain injury. / encephalopathy.-Slow to respond -Secondary pulmonary hypertension Plan: Neurontin dose further decreased by neurology. Remains on IV Keppra. Continue with IV Zosyn. Prognosis guarded..
[2020-03-23 20:14] LABS: Glucose,Whole Blood 207 mg/dL (75-99)
[2020-03-23] MEDS: INSULIN DETEMIR (LEVEMIR) 100 UNIT/ML SYR SQ SCH (20:47)
[2020-03-24 00:02] LABS: Glucose,Whole Blood 240 mg/dL (75-99)
[2020-03-24] MEDS: INSULIN ASPART (NovoLOG) 100 UNIT/ML VIAL SQ SCH ×6 (00:17→20:13)
[2020-03-24] MEDS: SODIUM CHLORIDE 0.9% 1,000 ML IV SCH ×2 (01:00→16:50)
[2020-03-24] MEDS: CLEVIDIPINE BUTYRATE 25 MG in EMPTY BAG 1 BAG IV SCH ×5 (03:25→23:40)
[2020-03-24 04:43] LABS: Glucose,Whole Blood 144 mg/dL (75-99)
[2020-03-24 05:06] LABS: HCT 37.5 % (34.0-46.0); Hypochromasia Slight; MCH 29.2 pg (25.0-35.0); MCHC 32.1 g/dL (31.0-37.0); MCV 90.8 fL (80.0-100.0); Mean Platelet Volume 7.7; Platelet Count 214 k/uL (150-450); RBC 4.13 m/uL (3.80-5.40); RDW 14.1 % (11.5-15.5); WBC 10.1 k/uL (3.8-10.6)
[2020-03-24 05:12] LABS: ABG Base Excess 1.4 mmol/L; ABG HCO3 26 mmol/L (21-25); ABG Oxygen Saturation 98.3 % (94-97); ABG PCO2 41 mmHg (35-45); ABG PH 7.41 (7.35-7.45); ABG PO2 91 mmHg (83-108); ABG TCO2 27 mmol/L (19-24); Allen Test Performed? Yes
[2020-03-24 05:15] LABS: Potassium 4.1 mmol/L (3.5-5.1)
[2020-03-24 05:16] LABS: Calcium 8.9 mg/dL (8.4-10.2)
[2020-03-24] MEDS: carvediloL 3.125 MG TAB PO SCH ×2 (07:06→16:49)
[2020-03-24] MEDS: IPRATROPIUM-ALBUTEROL 3 ML NEB INHALATION PRN ×4 (07:18→19:19)
[2020-03-24 08:17] LABS: Glucose,Whole Blood 145 mg/dL (75-99)
[2020-03-24] MEDS: CHLORHEXIDINE GLUCONATE 15 ML CUP MUCOUS MEM SCH ×2 (08:21→20:13)
[2020-03-24] MEDS: PANTOPRAZOLE 40 MG/10 ML VIAL IVP SCH (08:23)
[2020-03-24] MEDS: PIPERACILLIN-TAZOBACTAM 3.375 GM in SODIUM CHLORIDE 0.9% 100 ML IVPB SCH ×2 (08:23→16:49)
--- NOTE | 2020-03-24 08:23 | XR ---
EXAMINATION TYPE: XR chest 1V portable DATE OF EXAM: 03/24/2020 COMPARISON: Prior chest x-ray 03/23/2020 HISTORY: Abnormal chest x-ray, tube placement TECHNIQUE: Single frontal view of the chest is obtained. FINDINGS: Tracheostomy tube and orogastric tube are overlying appropriate positions, distal tip of t he gastric tube not included on exam. Lung volumes are low and the patient is rotated, there are over lying leads and artifacts. There is no pneumothorax. Bibasilar patchy increased density persists. Carrie tral vascularity and interstitium are prominent. Heart is enlarged. IMPRESSION: Correlate for congestive heart failure, there may be basilar atelectasis, effusions, dif ficult to exclude pneumonia
[2020-03-24] MEDS: HEPARIN SODIUM,PORCINE 5,000 UNIT/ML 1 ML VIAL SQ SCH ×2 (08:24→16:50)
[2020-03-24] MEDS: lisinopriL 5 MG TAB PO SCH (08:25)
[2020-03-24] MEDS: GABAPENTIN 300 MG CAP PO SCH ×3 (08:25→23:38)
[2020-03-24] MEDS: PRASUGREL 10 MG TAB PO SCH (08:25)
[2020-03-24] MEDS: levETIRAcetam IV 750 MG in SODIUM CHLORIDE 0.9% 100 ML IVPB SCH ×2 (08:28→20:13)
[2020-03-24] MEDS: EZETIMIBE 10 MG TAB PO SCH (08:28)
[2020-03-24] MEDS: ASPIRIN 81 MG PO SCH (08:28)
--- NOTE | 2020-03-24 09:32 | P.PN ---
Subjective Progress Note Date: 03/24/20 This is a pleasant 64-year-old female with history of coronary artery disease, prior stent placement, history of prior cardiac arrest in October 2018 at which time patient was having a stent placed in the LAD, she went into cardiac arrest at that time. During that admission, patient had a prolonged hospitalization requiring intubation and mechanical ventilation . Patient also has a history of COPD, hypertension, hyperlipidemia, vocal cord paralysis. Patient was brought to the hospital on this occasion following a cardiopulmonary arrest , EMS arrived at the scene, patient was unresponsive, pulseless. She was noted to go into ventricular fibrillation, was given epinephrine and shocked times one. CPR lasted approximately 5 minutes. Patient continues to be in the intensive care unit, she was evaluated this morning, continues to be intubated and mechanically ventilated. They are attempting to wean this morning, yesterday there was an attempt at coming down on sedation, unsuccessful. Patient did have an echocardiogram with Doppler study performed, results are yet pending. Neurologically, patient is still sedated, they are coming down on sedation today. She continues to be on propofol. Blood pressure this morning 144/74 with a heart rate in the 60s. She continues this morning to be in a normal sinus rhythm. Patient may be a candidate for an AICD, may also consider possible cardiac catheterization before AICD implantation. Chest x-ray shows probable atelectasis, bibasilar, possible pneumonia. Laboratory data from today was reviewed, white blood cell count 13.0, hemoglobin 11.4, platelet count 227. Sodium 139, potassium 4.3, BUN 42, creatinine 1.7. Blood gases were also obtained this morning, pH of 7.4, pCO2 36, pO2 127, HCO3 22, O2 saturation 99.6. 03/23/2020 Patient was seen and examined this morning . Continues to be on ventilatory support. She is currently off propofol, patient may have sustained anoxic brain injury according to the initial EEG and Dr. Yepez's neurology note. A repeat EEG is scheduled for today at 1:00. Patient may also be having some underlying seizure activity and antiseizure medications were added. He gave her different scenarios including tracheostomy revision, permanent tracheostomy, transfer to a specialized nursing facility on a ventilator, versus recovery. The daughter wishes to think this over pending the repeat EEG today. Her blood pressure today 144/60 with a heart rate in the 60s, temperature 98.2, saturations 97%. She is not responsive to verbal stimuli. 03/24/2020 Patient was seen and examined this morning, continues to be on ventilatory support. Continues to be non-responsive.Dr. Kearns will again meet with the family today regarding potentially withdrawing life support. Objective - Vital Signs Vital signs: Vital Signs Temp 98.9 F 03/24/20 04:00 Pulse 96 03/24/20 07:26 Resp 25 H 03/24/20 07:26 BP 133/72 03/24/20 07:00 Pulse Ox 98 03/24/20 07:00 Intake & Output 03/23/20 03/24/20 03/24/20 18:59 06:59 18:59 Intake Total 1853 1146.734 39.467 Output Total 1125 1975 Balance 728 -828.266 39.467 Weight 102.3 kg Intake: IV 1133 1036 Piperacillin-Tazobactam 3 275 .375 gm In Sodium Chloride 0.9% 100 ml @ 25 mls/hr IVPB Q8HR [facility] Rx# :[id number] Pressure bag 33 36 Sodium Chloride 0.9% 1, 825 900 000 ml @ 75 mls/hr IV . [id number] [facility] Rx#:[id number] levETIRAcetam IV 750 mg 100 In Sodium Chloride 0.9% 100 ml @ 400 mls/hr IVPB Q12HR [facility] Rx#:[id number] Intake, IV Titration 52.734 39.467 Amount Clevidipine Butyrate 25 52.734 39.467 mg In Empty Bag 1 bag @ 1 MG/HR 2 mls/hr IV .Q24H [facility]REG Rx#:[id number] Tube Feeding 630 58 Other 90 Output: Urine 1125 1975 Other: Voiding Method Indwelling Catheter Indwelling Catheter ABP, PAP, CO, CI - Last Documented Arterial Blood Pressure 152/64 - Exam PHYSICAL EXAMINATION: GENERAL: 64-year-old female, on mechanical ventilation, in no distress, not responding to verbal stimuli, she does withdraw from painful stimuli HEENT: Head is atraumatic, normocephalic. Pupils equal,pinpoint. Sclera anicteric. Conjunctiva are clear. Mucous membranes of the mouth are moist. Neck is supple. There is no elevated jugular venous pressure. Tracheostomy tube is intact. Orogastric tube is intact. HEART EXAMINATION: [Heart S1, S2 normal. No murmur or gallop heard.] CHEST EXAMINATION: Lungs reveal scattered coarse rhonchi ABDOMEN: [ Soft, nontender. Bowel sounds are heard. No organomegaly noted]. EXTREMITIES:[ 2+ peripheral pulses with trace evidence of peripheral edema and no calf tenderness noted]. NEUROLOGIC patient is unresponsive to any stimuli at this point . - Labs CBC & Chem 7: 03/24/20 04:55 03/24/20 04:55 Labs: Abnormal Lab Results - Last 24 Hours (Table) 03/23/20 03/23/20 03/23/20 Range/Units 16:10 20:13 23:59 ABG HCO3 (21-25) mmol/L ABG Total CO2 (19-24) mmol/L ABG O2 Saturation (94-97) % Chloride (98-107) mmol/L BUN (7-17) mg/dL Creatinine (0.52-1.04) mg/dL Glucose (74-99) mg/dL POC Glucose (mg/dL) 119 H 207 H 240 H (75-99) mg/dL 03/24/20 03/24/20 03/24/20 Range/Units 04:41 04:55 05:09 ABG HCO3 26 H (21-25) mmol/L ABG Total CO2 27 H (19-24) mmol/L ABG O2 Saturation 98.3 H (94-97) % Chloride 114 H (98-107) mmol/L BUN 35 H (7-17) mg/dL Creatinine 1.09 H (0.52-1.04) mg/dL Glucose 164 H (74-99) mg/dL POC Glucose (mg/dL) 144 H (75-99) mg/dL 03/24/20 Range/Units 08:15 ABG HCO3 (21-25) mmol/L ABG Total CO2 (19-24) mmol/L ABG O2 Saturation (94-97) % Chloride (98-107) mmol/L BUN (7-17) mg/dL Creatinine (0.52-1.04) mg/dL Glucose (74-99) mg/dL POC Glucose (mg/dL) 145 H (75-99) mg/dL Microbiology - Last 24 Hours (Table) 10/17/20 00:01 Blood Culture - Preliminary Blood No Growth after 96 hours Assessment and Plan Plan: Assessment and plan #1 cardiac arrest, evidence of ventricular fibrillation. Patient has history of prior cardiac arrest in October 2018, LAD was stented at that time. #2 hyperlipidemia #3 ischemic cardiomyopathy with prior documented ejection fraction of 35% #4 hypertension #5 mild systolic congestive heart failure acute on chronic #6 history of vocal cord paralysis and tracheostomy #7 COPD #8 prior history of smoking #9 diabetes #10 suspected anoxic brain injury and underlying seizure activity Plan Patient remains unresponsive, Dr. Kearns we will again meet with family today, discussing a possible withdawal of life support. DNP note has been reviewed, I agree with a documented findings and plan of care. Patient was seen and examined.
--- NOTE | 2020-03-24 10:51 | PN ---
PROGRESS NOTE PULMONARY/CRITICAL CARE PROGRESS NOTE: DATE OF SERVICE: 03/24/2010 Critical care time 33 minutes. This is a patient who is status post [id number] cardiopulmonary arrest with about a 10 minute resuscitation before there was return of spontaneous circulation. She apparently primarily had a ventricular fibrillation arrest as well as a pulseless electrical activity arrest. Again, the resuscitation period was about 10 minutes or so. At the site, the patient had a small pediatric tracheostomy tube placed in the patient's tracheal stoma. She remains here in the ICU. She has had 2 EEGs. Both EEG showed diffuse slowing consistent with anoxic brain injury. Currently, she is on PSV 15, CPAP of 5, 35% FiO2. Blood gases show pO2 of 91, pCO2 41. pH of 7.41. She is on Cleviprex at 8 mg an hour, saline at 75 mL an hour and Vital high-protein at goal which is 58 mL an hour. I just got off the phone with the patient's daughter whose name is also Nicolasa. She agrees to proceed with revision of the trach site. The patient has a very small tracheostomy tube in the neck area. Anyway, the patient has not shown any improvement in neurologic situation. Her neurologic examination is basically the same. She has triggering the ventilator. She does have a gag reflex. Doll's eyes are present. Her pupils are midpoint and sluggishly reactive. She does have a gag. Current vital signs are reviewed. Temperature is 98.9, heart rate 93, respiratory rate 24, blood pressure 133/72 mean 92, saturations are 98%. Appears in no acute distress. HEENT: Examination is grossly unremarkable. NECK: Supple, full range of motion. No adenopathy. Neck veins are flat. There is a midline tracheostomy with a pediatric tracheostomy tube in place. CARDIOVASCULAR: Examination reveals regular rhythm and rate. Heart rate 96 beats per minute. S1, S2 normal. There is no murmur. Heart sounds are distant. LUNGS: Reveal diffuse rhonchi. Breath sounds equal. ABDOMEN: Soft. Bowel sounds are noted. EXTREMITIES: Intact. Minimal edema. SKIN: Without rash. NEUROLOGIC: Examination is difficult to assess given her current neurologic status. She is unresponsive. LABS: Reviewed. White count 10.1, hemoglobin 12, hematocrit 37.5, platelet count 214,000, sodium 144, potassium 4.1, chloride 114, CO2 is 26, anion gap is 4. BUN and creatinine were 35 and 1.09, glucose 164. Magnesium 2. Calcium 8.9. Microbiology is thus far negative. The patient's chest x-ray from March 24 shows changes of a mild fluid overload. There may be some bibasilar infiltrates as well. MEDICATIONS: Reviewed. Currently, she is on Tylenol, aspirin, Coreg, Peridex, Cleviprex, Zetia, gabapentin, heparin, insulin, albuterol/Atrovent updrafts, labetalol p.r.n., Keppra, lisinopril, Ativan, magnesium replacement, morphine, Narcan, Protonix, Zosyn, potassium replacement, Effient, Diprivan and saline IV. ASSESSMENT: 1. Status post gfg-op-eomflatw cardiopulmonary arrest with about 10 minutes of resuscitation with eventual return of spontaneous circulation in a patient with predominantly ventricular fibrillation/pulseless electrical activity arrest. 2. Status post mechanical ventilation with insertion of a pediatric tracheostomy tube and a prior tracheostoma site for hypoxemic respiratory failure. 3. Possible aspiration pneumonia. 4. Acute systolic congestive heart failure. 5. Ischemic cardiomyopathy. 6. History of vocal cord paralysis and previous tracheostomy. 7. History of chronic obstructive pulmonary disease. 8. History of coronary artery disease with previous cardiac intervention and stenting of the LAD and subsequent cardiac arrest. 9. Benign essential hypertension. 10.Diabetic peripheral neuropathy. 11.Suspected anoxic brain injury with underlying possible seizure activity. PLAN: Currently, the patient is clinically stable, although critically ill. I had another discussion with the patient's daughter. She does give permission to have a surgeon see her about revision of the tracheostomy site. The daughter is not ready to make any decisions about code status and comfort measures. I told her that was fine. Will continue with the Cleviprex for blood pressure control. She is being nourished at goal. Blood gases are reasonable. She is on PSV and CPAP. She has had a stable ventilatory dry. No additional recommendations are made. Prognosis is guarded. Again, critical care time 33 minutes. GA / AYUSH: [id number] /
[2020-03-24 11:39] LABS: Glucose,Whole Blood 120 mg/dL (75-99)
--- NOTE | 2020-03-24 15:00 | XR ---
EXAMINATION TYPE: XR chest 1V DATE OF EXAM: 03/24/2020 COMPARISON: Same day chest x-ray an older chest x-rays. HISTORY: NG tube placement. TECHNIQUE: Single frontal view of the chest is obtained. FINDINGS: Nasogastric tube projects with tip likely in proximal duodenum. Tracheostomy tube redemonst rated. There is chronic parenchymal change and patchy left greater than right bibasilar opacities. Low lung volumes redemonstrated. The cardiac silhouette size is stable and mildly enlarged with atherosclerot ic aorta. The osseous structures are intact. IMPRESSION: Tip of nasogastric tube now seen likely in proximal duodenum. Other findings stable.
--- NOTE | 2020-03-24 15:59 | P.GSCN ---
History of Present Illness Consult date: 03/24/20 History of present illness: CHIEF COMPLAINT: Cardiopulmonary arrest HISTORY OF PRESENT ILLNESS: This is a 64-year-old female with a known history Of coronary artery disease and ischemic cardiomyopathy. Patient had an out of hospital cardiopulmonary arrest. Patient had a previous tracheostomy for a vocal cord paralysis And stridor Done at [facility]. Patient required tracheostomy placement by EMS at the scene when she had this cardiopulmonary arrest. Apparently they were only able to get a pediatric size tracheostomy tube placed. Dr. thayer has been consulted for tracheostomy revision. PAST MEDICAL HISTORY: See list. PAST SURGICAL HISTORY: See list. MEDICATIONS: See list. ALLERGIES: See list. SOCIAL HISTORY: No illicit drug use. REVIEW OF SYSTEMS: CONSTITUTIONAL: Denies fever or chills. HEENT: Denies blurred vision, vision changes, or eye pain. Denies hemoptysis CARDIOVASCULAR: Denies chest pain or pressure. RESPIRATORY: No shortness of breath. GASTROINTESTINAL: See HPI for pertinent findings HEMATOLOGIC: Denies bleeding disorders. GENITOURINARY: Denies any blood in urine or increased urinary frequency. SKIN: Denies pruitis. Denies rash. PHYSICAL EXAM: VITAL SIGNS: Reviewed GENERAL: Well-developed in no acute distress. HEENT: No sclera icterus. Extraocular movements grossly intact. Moist buccal mucosa. Head is atraumatic, normocephalic. No nasal drainage. ABDOMEN: Soft. Nontender Nondistended. NEUROLOGIC: Patient is intubated. She is unresponsive LABORATORY DATA: WBC 10.1 hemoglobin 12.0 IMAGING: ASSESSMENT: 1. Status post out of hospital cardiopulmonary arrest 2. Status post mechanical ventilation with insertion of a pediatric tracheostomy tube and a prior tracheostoma site for hypoxic respiratory failure 3. Suspected anoxic brain injury with possible seizure activity 4. History of vocal cord paralysis and previous tracheostomy 5. Possible aspiration pneumonia 6. Acute systolic CHF exacerbation 7. History of coronary artery disease with cardiac stents PLAN: -Plan for tracheostomy revision on Sunday with Dr. Thayer Thank you for this consultation Physician Information Security Director note has been reviewed by physician. Signing provider agrees with the documented findings, assessment, and plan of care. Past Medical History Past Medical History: Coronary Artery Disease (CAD), CVA/TIA, Diabetes Mellitus, Hyperlipidemia, Hypertension Additional Past Medical History / Comment(s): Diabetic peripheral neuropathyongoing, cardiac arrest october, back pain, TIA 2011 no residual, heart murmur-had a stress test, found a "spot"-had a planned heart cath to evaluate-blockage in "widowmaker" and coded during the cath was vented and in ICU Last Myocardial Infarction Date:: unknown History of Any Multi-Drug Resistant Organisms: MRSA Year Discovered:: 04/14/2015 MDRO Source:: top of head Past Surgical History: Heart Catheterization With Stent, Tubal Ligation Additional Past Surgical History / Comment(s): bilat cataract surgery, trach inserted Past Anesthesia/Blood Transfusion Reactions: No Reported Reaction Date of Last Stent Placement:: 10/02/18 Past Psychological History: No Psychological Hx Reported Smoking Status: Never smoker Past Alcohol Use History: None Reported Past Drug Use History: None Reported - Past Family History Mother Family Medical History: Dementia, Diabetes Mellitus Father Family Medical History: Diabetes Mellitus, Deep Vein Thrombosis (DVT) Medications and Allergies Home Medications Medication Instructions Recorded Confirmed Type Aspirin 81 mg PO DAILY chew 10/16/18 03/19/20 Rx Prasugrel [Effient] 10 mg PO DAILY tab 10/16/18 03/19/20 Rx lisinopriL [Zestril] 5 mg PO DAILY tab 10/16/18 03/19/20 Rx Gabapentin 800 mg PO QID 01/10/19 03/19/20 History Ezetimibe [Zetia] 10 mg PO DAILY 03/22/19 03/19/20 History Furosemide [Lasix] 40 mg PO DAILY 03/04/20 03/19/20 History Insulin Aspart (Niacinamide) 11 units SQ AC-TID 03/04/20 03/19/20 History [Fiasp 100 Unit/ml Flextouch] Insulin Glargine,Hum.rec.anlog 100 units SQ HS 03/04/20 03/19/20 History [Toujeo Solostar] carvediloL [Coreg] 3.125 mg PO AC-BID 03/04/20 03/19/20 History Allergies Allergy/AdvReac Type Severity Reaction Status Date / Time Fxmtzzt-Tcq-Hdt Reductase AdvReac muscle Verified 03/19/20 22:36 Inhibitor pain/breakdown Surgical - Exam Vital Signs Temp Pulse Resp BP Pulse Ox 98 F 109 H 18 122/88 100 03/19/20 22:29 03/19/20 22:29 03/19/20 22:29 03/19/20 22:29 03/19/20 22:29 Results - Labs 03/24/20 04:55 03/24/20 04:55 Abnormal Lab Results - Last 24 Hours (Table) 03/23/20 03/23/20 03/23/20 Range/Units 16:10 20:13 23:59 ABG HCO3 (21-25) mmol/L ABG Total CO2 (19-24) mmol/L ABG O2 Saturation (94-97) % Chloride (98-107) mmol/L BUN (7-17) mg/dL Creatinine (0.52-1.04) mg/dL Glucose (74-99) mg/dL POC Glucose (mg/dL) 119 H 207 H 240 H (75-99) mg/dL 03/24/20 03/24/20 03/24/20 Range/Units 04:41 04:55 05:09 ABG HCO3 26 H (21-25) mmol/L ABG Total CO2 27 H (19-24) mmol/L ABG O2 Saturation 98.3 H (94-97) % Chloride 114 H (98-107) mmol/L BUN 35 H (7-17) mg/dL Creatinine 1.09 H (0.52-1.04) mg/dL Glucose 164 H (74-99) mg/dL POC Glucose (mg/dL) 144 H (75-99) mg/dL 03/24/20 03/24/20 Range/Units 08:15 11:38 ABG HCO3 (21-25) mmol/L ABG Total CO2 (19-24) mmol/L ABG O2 Saturation (94-97) % Chloride (98-107) mmol/L BUN (7-17) mg/dL Creatinine (0.52-1.04) mg/dL Glucose (74-99) mg/dL POC Glucose (mg/dL) 145 H 120 H (75-99) mg/dL Microbiology - Last 24 Hours (Table) 03/24/20 00:55 Gram Stain - Preliminary Sputum Sputum Culture - Preliminary 03/20/20 00:01 Blood Culture - Preliminary Blood No Growth after 96 hours Diabetes panel 03/24/20 Range/Units 04:55 Sodium 144 (137-145) mmol/L Potassium 4.1 (3.5-5.1) mmol/L Chloride 114 H (98-107) mmol/L Carbon Dioxide 26 (22-30) mmol/L BUN 35 H (7-17) mg/dL Creatinine 1.09 H (0.52-1.04) mg/dL Glucose 164 H (74-99) mg/dL Calcium 8.9 (8.4-10.2) mg/dL Calcium panel 03/24/20 Range/Units 04:55 Calcium 8.9 (8.4-10.2) mg/dL Pituitary panel 03/24/20 Range/Units 04:55 Sodium 144 (137-145) mmol/L Potassium 4.1 (3.5-5.1) mmol/L Chloride 114 H (98-107) mmol/L Carbon Dioxide 26 (22-30) mmol/L BUN 35 H (7-17) mg/dL Creatinine 1.09 H (0.52-1.04) mg/dL Glucose 164 H (74-99) mg/dL Calcium 8.9 (8.4-10.2) mg/dL Adrenal panel 03/24/20 Range/Units 04:55 Sodium 144 (137-145) mmol/L Potassium 4.1 (3.5-5.1) mmol/L Chloride 114 H (98-107) mmol/L Carbon Dioxide 26 (22-30) mmol/L BUN 35 H (7-17) mg/dL Creatinine 1.09 H (0.52-1.04) mg/dL Glucose 164 H (74-99) mg/dL Calcium 8.9 (8.4-10.2) mg/dL
--- NOTE | 2020-03-24 16:02 | P.PN ---
Subjective Progress Note Date: 03/24/20 Patient is off sedation, no signs of clinical improvement. Continues to be severely encephalopathic. Does not follow commands. Please refer to examination below. No seizure-like activity witnessed. Objective - Vital Signs Vital signs: Vital Signs Temp 98.2 F 03/24/20 12:00 Pulse 105 H 03/24/20 15:00 Resp 18 03/24/20 15:00 BP 145/70 03/24/20 15:00 Pulse Ox 96 03/24/20 15:00 Intake & Output 03/23/20 03/24/20 03/24/20 18:59 06:59 18:59 Intake Total 1853 3321.506 4924.400 Output Total 1125 1975 1000 Balance 728 -828.266 250.400 Weight 102.3 kg 102.3 kg Intake: IV 1133 1036 718 Piperacillin-Tazobactam 3 275 75 .375 gm In Sodium Chloride 0.9% 100 ml @ 25 mls/hr IVPB Q8HR GREG Rx# :[id number] Pressure bag 33 36 18 Sodium Chloride 0.9% 1, 825 900 525 000 ml @ 75 mls/hr IV . [id number] GREG Rx#:[id number] levETIRAcetam IV 750 mg 100 100 In Sodium Chloride 0.9% 100 ml @ 400 mls/hr IVPB Q12HR GREG Rx#:[id number] Intake, IV Titration 52.734 66.400 Amount Clevidipine Butyrate 25 52.734 66.400 mg In Empty Bag 1 bag @ 1 MG/HR 2 mls/hr IV .Q24H GREG Rx#:[id number] Tube Feeding 630 58 406 Other 90 60 Output: Urine 1125 1975 1000 Other: Voiding Method Indwelling Catheter Indwelling Catheter Indwelling Catheter ABP, PAP, CO, CI - Last Documented Arterial Blood Pressure 163/74 - Exam On examination patient is an elderly female, who is severely obtunded, unresponsive to calling her name. With painful stimuli, she did slightly shrug her shoulder, but did not open her eyes. No seizure-like activity noticed. Pupils are 3-4 mm, sluggishly reacting. Patient has right lenticular opacity. Corneas are present. Oculocephalics not clearly present with limited movement. Patient's reflexes are symmetric, 2 at the biceps, 1+ brachioradialis, 1 at the knees absent ankles and plantars are upgoing bilaterally. Tone is equal. - Labs CBC & Chem 7: 03/24/20 04:55 03/24/20 04:55 Labs: Abnormal Lab Results - Last 24 Hours (Table) 03/23/20 03/23/20 03/23/20 Range/Units 16:10 20:13 23:59 ABG HCO3 (21-25) mmol/L ABG Total CO2 (19-24) mmol/L ABG O2 Saturation (94-97) % Chloride (98-107) mmol/L BUN (7-17) mg/dL Creatinine (0.52-1.04) mg/dL Glucose (74-99) mg/dL POC Glucose (mg/dL) 119 H 207 H 240 H (75-99) mg/dL 03/24/20 03/24/20 03/24/20 Range/Units 04:41 04:55 05:09 ABG HCO3 26 H (21-25) mmol/L ABG Total CO2 27 H (19-24) mmol/L ABG O2 Saturation 98.3 H (94-97) % Chloride 114 H (98-107) mmol/L BUN 35 H (7-17) mg/dL Creatinine 1.09 H (0.52-1.04) mg/dL Glucose 164 H (74-99) mg/dL POC Glucose (mg/dL) 144 H (75-99) mg/dL 03/24/20 03/24/20 Range/Units 08:15 11:38 ABG HCO3 (21-25) mmol/L ABG Total CO2 (19-24) mmol/L ABG O2 Saturation (94-97) % Chloride (98-107) mmol/L BUN (7-17) mg/dL Creatinine (0.52-1.04) mg/dL Glucose (74-99) mg/dL POC Glucose (mg/dL) 145 H 120 H (75-99) mg/dL Microbiology - Last 24 Hours (Table) 03/24/20 00:55 Gram Stain - Preliminary Sputum Sputum Culture - Preliminary 03/20/20 00:01 Blood Culture - Preliminary Blood No Growth after 96 hours Assessment and Plan Assessment: * 64-year-old female, who has tracheostomy since March 2019, had a witnessed respiratory arrest followed by cardiac arrest at home, with downtime of about 10 minutes, although patient's daughter stating <5 minutes. Patient is 5 days post cardiac arrest, still showing no signs of clinical improvement. 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 * History of cardiac arrest in October 2018 during cardiac procedure. * History of vocal cord paralysis and previous tracheostomy. * COPD * Diabetes * Hypertension * Mild renal insufficiency. * X tobacco use Plan: * Patient continues to be severely encephalopathic. Patient showing no signs of clinical improvement. No seizure-like activity noticed. * Repeat computed tomography scan of the head. * Repeat EEG 03/23/2020 revealed diffuse slowing in moderate to high amplitude delta range, consistent with severe encephalopathy. No epileptiform activity was seen on this study. * Continue Keppra 750 mg twice a day (adjusted to her renal functions). * Continue Neurontin 300 mg 3 times a day based upon her renal functions. * Discussed with patient's daughter, and updated her about patient's current status.
--- NOTE | 2020-03-24 16:07 | P.PN ---
Progress Note - Text Progress Note Date: 03/24/20 Chief Complaint: Decreased responsiveness History of presenting complaint: This is a 64-year-old patient of Dr. Finley. Chronic stable medical conditions include hypertension, hyperlipidemia, diabetic peripheral neuropathy. was in the hospital in October 2018 having cardiac arrest following LAD angioplasty. Also pulmonary lvxcmzrr-[id number]-bzll was felt a left vocal cord paralysis probably from intubation. Patient was brought in by the EMS. Family had called closure short of breath. While they were on the phone vacation became unresponsive and collapsed into the bed. Then begin using a bag valve mask ventilation. When the EMS arrived patient was unresponsive she also went into ventricular fibrillation. She received 1 mg of epinephrine 1 shock and patient then came around. Downtime was about 10 minutes. Patient is in the ICU. On the ventilator. FiO2 50% and a PEEP of 5. Patient is on IV propofol and norepinephrine. Telemetry shows sinus rhythm. Has an NG tube. Per cardiology notes her EF is 35%. In the past. admitted with-cardiac arrest with underlying rhythm of ventricular fibrillation the downtime of tenderness, cardioverted, acute hypoxic respiratory failure on the ventilator, acute CHF exacerbation, lactic acidosis likely type II, aspiration pneumonia, and acute COPD exacerbation.started on IV Zosyn, IV Solu- Medrol. Initially intubated. Put on Cleviprex drip for blood pressure. Based on EEG placed on IV Keppra per neurology. Dose of Neurontin scaled back. Because of renal failure. [id number] the ventilator. FiO2 35 and a PEEP of 5. NG tube in place. Telemetry -sinus rhythm. Tube feeding remains off sedation . brainstem reflexes present. Otherwise no purposeful movements. Daughter wants to wait and watch. Review of systems:-Patient intubated Active Medications Acetaminophen (Acetaminophen Tab 325 Mg Tab) 650 mg PO Q4HR PRN PRN Reason: Fever and/or Mild Pain Albuterol/Ipratropium (Ipratropium-Albuterol 3 Ml Neb) 3 ml INHALATION RT-QID PRN PRN Reason: Shortness Of Breath Or Wheezing Last Admin: 03/24/20 11:04 Dose: 3 ml Documented by: Aspirin (Aspirin 81 Mg) 81 mg PO DAILY GREG Last Admin: 03/24/20 08:28 Dose: 81 mg Documented by: Carvedilol (Carvedilol 3.125 Mg Tab) 3.125 mg PO AC-BID [facility] Last Admin: 03/24/20 07:06 Dose: Not Given Documented by: Chlorhexidine Gluconate (Chlorhexidine Gluconate 15 Ml Cup) 15 ml MUCOUS MEM BID [facility] Last Admin: 03/24/20 08:21 Dose: 15 ml Documented by: Ezetimibe (Ezetimibe 10 Mg Tab) 10 mg PO DAILY [facility] Last Admin: 03/24/20 08:28 Dose: 10 mg Documented by: Gabapentin (Gabapentin 300 Mg Cap) 300 mg PO TID [facility] Last Admin: 03/24/20 08:25 Dose: 300 mg Documented by: Heparin Sodium (Porcine) (Heparin Sodium,Porcine 5,000 Unit/Ml 1 Ml Vial) 5,000 unit SQ Q8HR [facility] Last Admin: 03/24/20 08:24 Dose: 5,000 unit Documented by: Sodium Chloride (Saline 0.9%) 1,000 mls @ 75 mls/hr IV .[id number] [facility] Last Admin: 03/24/20 01:00 Dose: 75 mls/hr Documented by: Propofol 1,000 mg/ IV Solution 100 mls @ 0 mls/hr IV .Q0M [facility]; Protocol Last Titration: 03/22/20 08:00 Dose: 0 mcg/kg/min, 0 mls/hr Documented by: Piperacillin Sod/Tazobactam (Sod 3.375 gm/ Sodium Chloride) 100 mls @ 25 mls/hr IVPB Q8HR [facility] Last Admin: 03/24/20 08:23 Dose: 25 mls/hr Documented by: Levetiracetam 750 mg/ Sodium (Chloride) 107.5 mls @ 400 mls/hr IVPB Q12HR [facility] Last Admin: 03/24/20 08:28 Dose: 400 mls/hr Documented by: Clevidipine 25 mg/ IV Solution 50 mls @ 2 mls/hr IV .Q24H [facility]; Protocol Last Admin: 03/24/20 11:43 Dose: 4 mg/hr, 8 mls/hr Documented by: Insulin Aspart (Insulin Aspart (Novolog) 100 Unit/Ml Vial) 0 unit SQ Q4H [facility]; Protocol Last Admin: 03/24/20 11:44 Dose: Not Given Documented by: Insulin Detemir (Insulin Detemir (Levemir) 100 Unit/Ml Syr) 80 unit SQ HS [facility] Last Admin: 03/23/20 20:47 Dose: 80 unit Documented by: Labetalol HCl (Labetalol 5 Mg/Ml Vial Mdv) 10 mg IVP Q10M PRN PRN Reason: Systolic >160 Last Admin: 03/23/20 19:00 Dose: 10 mg Documented by: Lidocaine HCl (Lidocaine 1% Inj 10mg/Ml (20 Ml Mdv)) 5 ml INTRATRACH Q2HR PRN PRN Reason: coughing, ventilator Lisinopril (Lisinopril 5 Mg Tab) 5 mg PO DAILY [facility] Last Admin: 03/24/20 08:25 Dose: 5 mg Documented by: Lorazepam (Lorazepam 2 Mg/Ml Inj) 1 mg IV Q4HR PRN PRN Reason: Seizures Last Admin: 03/23/20 03:10 Dose: 1 mg Documented by: Miscellaneous Information (Potassium Replacement Protocol 1 Each Mis) 1 each MISCELLANE DAILY PRN; Protocol PRN Reason: Per Protocol Miscellaneous Information (Magnesium Replacement Protocol 1 Each Mis) 1 each MISCELLANE DAILY PRN; Protocol PRN Reason: Per Protocol Morphine Sulfate (Morphine Sulfate 4 Mg/Ml Syringe) 4 mg IV Q4HR PRN PRN Reason: Severe Pain Last Admin: 03/23/20 12:56 Dose: 4 mg Documented by: Naloxone HCl (Naloxone 0.4 Mg/Ml 1 Ml Vial) 0.2 mg IV Q2M PRN PRN Reason: Opioid Reversal Naloxone HCl (Naloxone 0.4 Mg/Ml 1 Ml Vial) 0.2 mg IV Q2M PRN PRN Reason: Opioid Reversal Pantoprazole Sodium (Pantoprazole 40 Mg/10 Ml Vial) 40 mg IVP DAILY [facility] Last Admin: 03/24/20 08:23 Dose: 40 mg Documented by: Prasugrel (Prasugrel 10 Mg Tab) 10 mg PO DAILY [facility] Last Admin: 03/24/20 08:25 Dose: 10 mg Documented by: Physical examination: VITAL SIGNS: 98.2, 96, 20, 131/72, 98% on the ventilator GENERAL: laying in bed, intubated EYES: Pupils equal. Conjunctiva normal. HEENT: External appearance of nose and ears normal, oral cavity . NG tube NECK: JVD unable to assess, masses not palpable.stoma with the tracheostomy tube-connected to ventilator HEART: First and second heart sounds are normal; no edema. LUNGS: Respiratory rate increased, decreased breath sounds ABDOMEN: Soft, nontender, liver spleen not palpable, no masses palpable. PSYCH: Unable to assess NEUROLOGICAL: Pupils sluggish. Corneal reflex present. Gag reflex present. No spontaneous movements. INVESTIGATIONS, reviewed in the clinical context: White count 10.1 hemoglobin 12.0 potassium 4.1 creatinine 1.09 Chest x-ray possibly some infiltrate 2-D echocardiogram-EF 60-65%, mild to moderate pulmonary hypertension Repeat EEG-March 23-showing generalized cerebral dysfunction EEG suggestive of generalized cerebral dysfunction Admission testing White count 10.1 hemoglobin 13.4 platelets 293 potassium 5.8 bicarb 17 bun 42 creatinine 1.81 blood glucose 458 lactic acid 8.1 Troponin I less than 0.012, 0.056,0.085 EKG tracing personally reviewed by me-sinus rhythm low-voltage right bundle branch block pattern Computed tomography scan of the brain-negative Chest x-ray film personally reviewed by me-portable cardiomegaly venous prominence Assessment: -Cardiac arrest with underlying rhythm of ventricle fibrillation, with downtime of 10 minutes cardioverted, 1 dose of epinephrine -Acute hypoxic respiratory failure, requiring ventilator support-slow to respond -Acute on chronic congestive heart failure exacerbation from systolic dysfunction EF 25% -Lactic acidosis most likely type II. Cannot rule out infectious process. -Possible aspiration pneumonia -Acute COPD exacerbation in an ex-smoker, exposed to secondhand smoking-slow to respond -Possible tracheal stenosis following intubation -History of cardiac arrest following stenting to LAD -Coronary artery disease with stent to LAD -Diabetes mellitus 2 uncontrolled with hyper glycemia on insulin drip secondary to steroids -Essential hypertension -Hyperlipidemia -Diabetic peripheral neuropathy -Left vocal cord paralysis from intubation -Obesity BMI 33.9 -Consider anoxic brain injury. / encephalopathy.-Slow to respond. Patient remains off sedatives. On IV Keppra. -Secondary pulmonary hypertension Plan: on IV Keppra. IV Zosyn. Prognosis guarded.. Revision of tracheostomy tube. Follow-up with [employer] architect and neurology.
[2020-03-24 16:47] LABS: Glucose,Whole Blood 173 mg/dL (75-99)
[2020-03-24 19:43] LABS: Glucose,Whole Blood 202 mg/dL (75-99)
[2020-03-24] MEDS: INSULIN DETEMIR (LEVEMIR) 100 UNIT/ML SYR SQ SCH (20:13)
--- NOTE | 2020-03-24 20:56 | CT ---
EXAMINATION TYPE: CT brain wo con DATE OF EXAM: 03/24/2020 COMPARISON: 03/19/2020. HISTORY: ams, f/u post cardiac arrest CT DLP: 1111.4 mGycm Automated exposure control for dose reduction was used. FINDINGS: There is no acute intracranial hemorrhage, mass effect or hydrocephalus. The willis-white differentiati on is maintained. There is moderate opacification of the paranasal sinuses. There is minimal opacific ation of the bilateral mastoid air cells. No calvarial fracture. IMPRESSION: NO ACUTE INTRACRANIAL ABNORMALITY.
[2020-03-25 00:39] LABS: Glucose,Whole Blood 133 mg/dL (75-99)
[2020-03-25] MEDS: HEPARIN SODIUM,PORCINE 5,000 UNIT/ML 1 ML VIAL SQ SCH ×3 (00:44→18:11)
[2020-03-25] MEDS: INSULIN ASPART (NovoLOG) 100 UNIT/ML VIAL SQ SCH ×6 (00:45→19:56)
[2020-03-25] MEDS: PIPERACILLIN-TAZOBACTAM 3.375 GM in SODIUM CHLORIDE 0.9% 100 ML IVPB SCH ×2 (00:45→08:27)
[2020-03-25] MEDS: CLEVIDIPINE BUTYRATE 25 MG in EMPTY BAG 1 BAG IV SCH ×2 (02:57→06:27)
[2020-03-25] MEDS: SODIUM CHLORIDE 0.9% 1,000 ML IV SCH (03:37)
[2020-03-25] MEDS: ACETAMINOPHEN TAB 325 MG TAB PO PRN (03:40)
[2020-03-25 04:09] LABS: ABG HCO3 27 mmol/L (21-25); ABG Oxygen Saturation 98.7 % (94-97); ABG PCO2 41 mmHg (35-45); ABG PH 7.43 (7.35-7.45); ABG PO2 96 mmHg (83-108); ABG TCO2 29 mmol/L (19-24); Allen Test Performed? Yes
[2020-03-25 04:15] LABS: Glucose,Whole Blood 92 mg/dL (75-99)
[2020-03-25 05:13] LABS: HCT 33.8 % (34.0-46.0); HGB 10.8 gm/dL (11.4-16.0); MCH 28.6 pg (25.0-35.0); MCV 89.2 fL (80.0-100.0); Mean Platelet Volume 10.2; Platelet Count 192 k/uL (150-450); RBC 3.79 m/uL (3.80-5.40); WBC 9.9 k/uL (3.8-10.6)
[2020-03-25 05:37] LABS: Calcium 8.7 mg/dL (8.4-10.2); Potassium 3.6 mmol/L (3.5-5.1)
[2020-03-25] MEDS: carvediloL 3.125 MG TAB PO SCH (07:15)
[2020-03-25] MEDS: IPRATROPIUM-ALBUTEROL 3 ML NEB INHALATION PRN (07:24)
[2020-03-25] MEDS ORDERED: lisinopriL 10 MG TAB PO SCH (08:15)
[2020-03-25] MEDS ORDERED: HYDROmorphone 0.5 MG/0.5 ML SYRINGE IVP PRN (08:16)
[2020-03-25 08:24] LABS: Glucose,Whole Blood 96 mg/dL (75-99)
[2020-03-25] MEDS: HYDROmorphone 1 MG/ML 1 ML SYRINGE IVP PRN ×3 (08:26→18:37)
[2020-03-25] MEDS ORDERED: IPRATROPIUM-ALBUTEROL 3 ML NEB INHALATION PRN (08:27)
[2020-03-25] MEDS: levETIRAcetam IV 750 MG in SODIUM CHLORIDE 0.9% 100 ML IVPB SCH ×2 (08:27→21:14)
[2020-03-25] MEDS: lisinopriL 10 MG TAB PO SCH (08:28)
[2020-03-25] MEDS: EZETIMIBE 10 MG TAB PO SCH (08:28)
[2020-03-25] MEDS: GABAPENTIN 300 MG CAP PO SCH ×3 (08:28→21:16)
[2020-03-25] MEDS: PANTOPRAZOLE 40 MG/10 ML VIAL IVP SCH (08:28)
[2020-03-25] MEDS: ASPIRIN 81 MG PO SCH (08:28)
[2020-03-25] MEDS: CHLORHEXIDINE GLUCONATE 15 ML CUP MUCOUS MEM SCH ×2 (08:28→21:14)
[2020-03-25] MEDS: PRASUGREL 10 MG TAB PO SCH (08:28)
[2020-03-25] MEDS: carvediloL 6.25 MG TAB PO SCH ×2 (08:37→18:10)
[2020-03-25] MEDS ORDERED: DEXTROSE 5% IN WATER 1,000 ML IV ONE (09:27)
[2020-03-25] MEDS ORDERED: FUROSEMIDE 10 MG/ML 4 ML VIAL IV STA (09:29)
--- NOTE | 2020-03-25 09:32 | XR ---
EXAMINATION TYPE: XR chest 1V portable DATE OF EXAM: 03/25/2020 Comparison: 03/24/2020 Clinical History: 64-year-old female Tube placement Findings: Tracheostomy cannula. NG tube courses below the diaphragm. Heart borderline enlarged. Diffuse interst itial prominence. No consolidation or pleural effusion. Impression: Stable exam. NG tube satisfactory. Borderline heart size. Possible mild pulmonary vascular congestion .
--- NOTE | 2020-03-25 10:11 | P.PN ---
Subjective Progress Note Date: 03/25/20 This is a pleasant 64-year-old female with history of coronary artery disease, prior stent placement, history of prior cardiac arrest in October 2018 at which time patient was having a stent placed in the LAD, she went into cardiac arrest at that time. During that admission, patient had a prolonged hospitalization requiring intubation and mechanical ventilation . Patient also has a history of COPD, hypertension, hyperlipidemia, vocal cord paralysis. Patient was brought to the hospital on this occasion following a cardiopulmonary arrest , EMS arrived at the scene, patient was unresponsive, pulseless. She was noted to go into ventricular fibrillation, was given epinephrine and shocked times one. CPR lasted approximately 5 minutes. Patient continues to be in the intensive care unit, she was evaluated this morning, continues to be intubated and mechanically ventilated. They are attempting to wean this morning, yesterday there was an attempt at coming down on sedation, unsuccessful. Patient did have an echocardiogram with Doppler study performed, results are yet pending. Neurologically, patient is still sedated, they are coming down on sedation today. She continues to be on propofol. Blood pressure this morning 144/74 with a heart rate in the 60s. She continues this morning to be in a normal sinus rhythm. Patient may be a candidate for an AICD, may also consider possible cardiac catheterization before AICD implantation. Chest x-ray shows probable atelectasis, bibasilar, possible pneumonia. Laboratory data from today was reviewed, white blood cell count 13.0, hemoglobin 11.4, platelet count 227. Sodium 139, potassium 4.3, BUN 42, creatinine 1.7. Blood gases were also obtained this morning, pH of 7.4, pCO2 36, pO2 127, HCO3 22, O2 saturation 99.6. 03/23/2020 Patient was seen and examined this morning . Continues to be on ventilatory support. She is currently off propofol, patient may have sustained anoxic brain injury according to the initial EEG and Dr. Yepez's neurology note. A repeat EEG is scheduled for today at 1:00. Patient may also be having some underlying seizure activity and antiseizure medications were added. He gave her different scenarios including tracheostomy revision, permanent tracheostomy, transfer to a specialized nursing facility on a ventilator, versus recovery. The daughter wishes to think this over pending the repeat EEG today. Her blood pressure today 144/60 with a heart rate in the 60s, temperature 98.2, saturations 97%. She is not responsive to verbal stimuli. 03/24/2020 Patient was seen and examined this morning, continues to be on ventilatory support. Continues to be non-responsive.Dr. Kearns will again meet with the family today regarding potentially withdrawing life support. 03/25/2020 Patient was seen this morning, continues to be on ventilatory support. Dr. Kearns did have discussions with the patient's daughter, she wishes to continue to have everything done. She does give permission to have a surgeon see the patient regarding tracheostomy. The patient is clinically stable although critically ill. Objective - Vital Signs Vital signs: Vital Signs Temp 98.9 F 03/25/20 08:00 Pulse 67 03/25/20 09:00 Resp 18 03/25/20 09:00 BP 136/79 03/25/20 09:00 Pulse Ox 98 03/25/20 09:00 Intake & Output 03/24/20 03/25/20 03/25/20 18:59 06:59 18:59 Intake Total 5461.353 0863.267 425.416 Output Total 1450 1410 215 Balance 364.400 350.267 210.416 Weight 102.3 kg 103 kg Intake: IV 1030 1036 234 Piperacillin-Tazobactam 3 75 100 50 .375 gm In Sodium Chloride 0.9% 100 ml @ 25 mls/hr IVPB Q8HR [facility] Rx# :[id number] Pressure bag 30 36 9 Sodium Chloride 0.9% 1, 825 900 75 000 ml @ 75 mls/hr IV . [id number] [facility] Rx#:[id number] levETIRAcetam IV 750 mg 100 100 In Sodium Chloride 0.9% 100 ml @ 400 mls/hr IVPB Q12HR [facility] Rx#:[id number] Intake, IV Titration 116.400 148.267 32.416 Amount Clevidipine Butyrate 25 116.400 148.267 32.416 mg In Empty Bag 1 bag @ 1 MG/HR 2 mls/hr IV .Q24H [facility] Rx#:[id number] Tube Feeding 578 516 129 Other 90 60 30 Output: Urine 1450 1410 215 Other: Voiding Method Indwelling Catheter Indwelling Catheter Indwelling Catheter ABP, PAP, CO, CI - Last Documented Arterial Blood Pressure 136/50 - Exam PHYSICAL EXAMINATION: GENERAL: 64-year-old female, on mechanical ventilation, in no distress, not responding to verbal stimuli, she does withdraw from painful stimuli HEENT: Head is atraumatic, normocephalic. Pupils equal,pinpoint. Sclera anicteric. Conjunctiva are clear. Mucous membranes of the mouth are moist. Neck is supple. There is no elevated jugular venous pressure. Tracheostomy tube is intact. Orogastric tube is intact. HEART EXAMINATION: [Heart S1, S2 normal. No murmur or gallop heard.] CHEST EXAMINATION: Lungs reveal scattered coarse rhonchi ABDOMEN: [ Soft, nontender. Bowel sounds are heard. No organomegaly noted]. EXTREMITIES:[ 2+ peripheral pulses with trace evidence of peripheral edema and no calf tenderness noted]. NEUROLOGIC patient is unresponsive to any stimuli at this point . - Labs CBC & Chem 7: 03/25/20 05:08 03/25/20 05:08 Labs: Abnormal Lab Results - Last 24 Hours (Table) 03/24/20 03/24/20 03/24/20 Range/Units 11:38 16:45 19:40 RBC (3.80-5.40) m/uL Hgb (11.4-16.0) gm/dL Hct (34.0-46.0) % ABG HCO3 (21-25) mmol/L ABG Total CO2 (19-24) mmol/L ABG O2 Saturation (94-97) % Sodium (137-145) mmol/L Chloride (98-107) mmol/L BUN (7-17) mg/dL Creatinine (0.52-1.04) mg/dL POC Glucose (mg/dL) 120 H 173 H 202 H (75-99) mg/dL 03/25/20 03/25/20 03/25/20 Range/Units 00:38 04:00 05:08 RBC 3.79 L (3.80-5.40) m/uL Hgb 10.8 L (11.4-16.0) gm/dL Hct 33.8 L (34.0-46.0) % ABG HCO3 27 H (21-25) mmol/L ABG Total CO2 29 H (19-24) mmol/L ABG O2 Saturation 98.7 H (94-97) % Sodium (137-145) mmol/L Chloride (98-107) mmol/L BUN (7-17) mg/dL Creatinine (0.52-1.04) mg/dL POC Glucose (mg/dL) 133 H (75-99) mg/dL 03/25/20 Range/Units 05:08 RBC (3.80-5.40) m/uL Hgb (11.4-16.0) gm/dL Hct (34.0-46.0) % ABG HCO3 (21-25) mmol/L ABG Total CO2 (19-24) mmol/L ABG O2 Saturation (94-97) % Sodium 146 H (137-145) mmol/L Chloride 115 H (98-107) mmol/L BUN 31 H (7-17) mg/dL Creatinine 1.05 H (0.52-1.04) mg/dL POC Glucose (mg/dL) (75-99) mg/dL Microbiology - Last 24 Hours (Table) 03/20/20 00:01 Blood Culture - Preliminary Blood No Growth after 120 hours 03/24/20 00:55 Gram Stain - Preliminary Sputum Sputum Culture - Preliminary Assessment and Plan Plan: Assessment and plan #1 cardiac arrest, evidence of ventricular fibrillation. Patient has history of prior cardiac arrest in October 2018, LAD was stented at that time. #2 hyperlipidemia #3 ischemic cardiomyopathy with prior documented ejection fraction of 35% #4 hypertension #5 mild systolic congestive heart failure acute on chronic #6 history of vocal cord paralysis and tracheostomy #7 COPD #8 prior history of smoking #9 diabetes #10 suspected anoxic brain injury and underlying seizure activity Plan Patient remains unresponsive, the patient's daughter is not yet ready to make a decision on comfort measures, surgical services have been consulted for tracheostomy. Patient is clinically stable but critically ill. Overall prognosis guarded. DNP note has been reviewed, I agree with a documented findings and plan of care. Patient was seen and examined.
[2020-03-25] MEDS: IPRATROPIUM-ALBUTEROL 3 ML NEB INHALATION SCH ×4 (11:11→23:29)
[2020-03-25 11:47] LABS: Glucose,Whole Blood 122 mg/dL (75-99)
--- NOTE | 2020-03-25 12:20 | PN ---
PROGRESS NOTE PULMONARY/CRITICAL CARE PROGRESS NOTE: DATE OF SERVICE: 03/25/2020 Critical care time 33 minutes. This is a patient who is 64 years of age. She is status post [id number] cardiopulmonary arrest with about a 10 minute resuscitation time before there was return of spontaneous circulation. The arrest was primarily of ventricular fibrillation and pulseless electrical activity arrest. At the prior tracheotomy site, the patient had a very tiny stoma and a pediatric tracheostomy tube was placed there by the EMS people at the site of the arrest. She remains in the ICU. I have tried conversations with the daughter, Nicolasa many times. Nicolasa, just cannot seem to make a decision about what next to do for mom. Anyway, the patient is currently on pressure support of 15 cm water, CPAP of 5 cm of water and 35%. We are going to change her vent settings to the volume assist-control mode rate of 24, tidal volume 350, FiO2 of 35%, PEEP of 5. Blood gases on the pressure support included a pO2 of 96, pCO2 of 41 and a pH of 7.43. She is currently on Cleviprex 6 mg an hour, 0.9 at 75 mL an hour. She is getting Vital high-protein at goal which is 43 mL an hour. On Sunday, she will have a tracheostomy revision done by Dr. Amador. We will also ask for PEG tube at that time. The patient will need a PICC line. We will get a [facility] consultation, and we will eventually DC the art line and the central line. Overall, prognosis remains very poor. She likely has significant anoxic brain injury. She has had 2 EEGs. She has been seen by Neurology. Her EEG showed diffuse slowing consistent with anoxic/metabolic encephalopathy. Current vital signs are reviewed. Temperature is 98, heart rate 90, respiratory rate is 28, blood pressure 129/65 mean 86, saturations are 99%. Appears in no acute distress, though unresponsive to verbal or painful stimuli. NEUROLOGIC: Examination is unchanged. She has midpoint pupils which are sluggish, reactive, a gag reflex, she does trigger the ventilator, and she has doll's eyes reflex, which is currently present. HEENT: Examination is grossly unremarkable. NECK: Supple, full range of motion. There is a midline tracheostomy. CARDIOVASCULAR: Examination reveals regular rhythm and rate. Heart rate 85. LUNGS: Reveal diffuse coarse rhonchi. ABDOMEN: Soft, bowel sounds are noted. EXTREMITIES: Intact. No cyanosis, clubbing noted. Mild edema. SKIN: Without rash. NEUROLOGIC: Examination is unchanged as mentioned above. LABS: Reviewed. White count 9.9, hemoglobin 10.8, hematocrit 33.8, platelet count 192,000. Sodium 146, potassium 3.6, chloride 115, CO2 is 28, anion gap is 3. BUN and creatinine were 31 and 1.05. Glucose is 96. Calcium 8.7. Microbiology is currently negative. Chest x-ray shows a midline tracheostomy tube. There is some bibasilar patchy infiltrates or atelectasis. CURRENT MEDICATIONS: Reviewed. She is currently on Tylenol, aspirin, Coreg, chlorhexidine, Cleviprex, Zetia, gabapentin, subcu heparin, Dilaudid, insulin, DuoNeb, labetalol p.r.n., Keppra, lisinopril, lorazepam p.r.n., magnesium replacement, morphine, Narcan, Protonix, Zosyn, potassium replacement, Effient, and 0.9 at 75. ASSESSMENT: 1. Status post [id number] cardiopulmonary arrest with about 10 minutes of resuscitation with eventual return of spontaneous circulation in a patient with a predominant ventricular fibrillation/PEA arrest. 2. Status post mechanical ventilation with insertion of a pediatric tracheostomy tube at a prior tracheal stoma site, for hypoxemic respiratory failure. 3. Possible aspiration pneumonia. 4. Acute systolic congestive heart failure. 5. Ischemic cardiomyopathy. 6. History of vocal cord paralysis and previous tracheostomy. 7. History of chronic obstructive pulmonary disease. 8. History of coronary artery disease with previous cardiac intervention and stenting of the LAD and subsequent cardiac arrest. 9. Benign essential hypertension. 10.Diabetic peripheral neuropathy. 11.Suspected severe anoxic brain injury with possible underlying seizure activity. PLAN: The patient will have a tracheal revision by Dr. Amador on Sunday. Will also ask for PEG tube. Will increase the Coreg and the lisinopril to see if we cannot wean off the Cleviprex. The patient will have an art line and central line removed. Will see if we cannot get a PICC line in. Her vent settings are changed from precipitous support mode to volume assist-control mode. She continues on Vital high-protein at 43 mL an hour. Will change her saline IV to 0.45. Additional recommendations and suggestions are forthcoming. Prognosis is poor. Critical care time 33 minutes. MMODL / IJN: [id number] /
--- NOTE | 2020-03-25 14:04 | P.PN ---
Subjective Progress Note Date: 03/25/20 Patient is off sedation. Patient opened her eyes to calling her name. She does follow commands to some extent. Please refer to examination below. No seizure- like activity. Objective - Vital Signs Vital signs: Vital Signs Temp 98.2 F 03/25/20 12:00 Pulse 60 03/25/20 12:00 Resp 14 03/25/20 12:00 BP 115/60 03/25/20 12:00 Pulse Ox 100 03/25/20 12:00 Intake & Output 03/24/20 03/25/20 03/25/20 18:59 06:59 18:59 Intake Total 7306.528 9345.267 763.416 Output Total 1450 1410 615 Balance 364.400 350.267 148.416 Weight 102.3 kg 103 kg Intake: IV 1030 1036 413 Dextrose 5% in Water 1, 120 000 ml @ 40 mls/hr IV . Q24H [facility] Rx#:[id number] Piperacillin-Tazobactam 3 75 100 100 .375 gm In Sodium Chloride 0.9% 100 ml @ 25 mls/hr IVPB Q8HR [facility] Rx# :[id number] Pressure bag 30 36 18 Sodium Chloride 0.9% 1, 825 900 75 000 ml @ 75 mls/hr IV . [id number] [facility] Rx#:[id number] levETIRAcetam IV 750 mg 100 100 In Sodium Chloride 0.9% 100 ml @ 400 mls/hr IVPB Q12HR [facility] Rx#:[id number] Intake, IV Titration 116.400 148.267 32.416 Amount Clevidipine Butyrate 25 116.400 148.267 32.416 mg In Empty Bag 1 bag @ 1 MG/HR 2 mls/hr IV .Q24H [facility] Rx#:[id number] Tube Feeding 578 516 258 Other 90 60 60 Output: Urine 1450 1410 615 Other: Voiding Method Indwelling Catheter Indwelling Catheter Indwelling Catheter ABP, PAP, CO, CI - Last Documented Arterial Blood Pressure 136/50 - Exam On examination patient is an elderly female, who is encephalopathic, not on any sedation. Patient opened her eyes to calling her name loudly. After repeated attempts, patient even turn her head slightly towards me on the right side. Patient squeezed hands couple times with each hand, which appears very meaningful response. No seizure-like activity noticed. Pupils are 3-4 mm, reacting. Patient has right lenticular opacity. Corneal reflex are present. Tone is equal. - Labs CBC & Chem 7: 03/25/20 05:08 03/25/20 05:08 Labs: Abnormal Lab Results - Last 24 Hours (Table) 03/24/20 03/24/20 03/25/20 Range/Units 16:45 19:40 00:38 RBC (3.80-5.40) m/uL Hgb (11.4-16.0) gm/dL Hct (34.0-46.0) % ABG HCO3 (21-25) mmol/L ABG Total CO2 (19-24) mmol/L ABG O2 Saturation (94-97) % Sodium (137-145) mmol/L Chloride (98-107) mmol/L BUN (7-17) mg/dL Creatinine (0.52-1.04) mg/dL POC Glucose (mg/dL) 173 H 202 H 133 H (75-99) mg/dL 03/25/20 03/25/20 03/25/20 Range/Units 04:00 05:08 05:08 RBC 3.79 L (3.80-5.40) m/uL Hgb 10.8 L (11.4-16.0) gm/dL Hct 33.8 L (34.0-46.0) % ABG HCO3 27 H (21-25) mmol/L ABG Total CO2 29 H (19-24) mmol/L ABG O2 Saturation 98.7 H (94-97) % Sodium 146 H (137-145) mmol/L Chloride 115 H (98-107) mmol/L BUN 31 H (7-17) mg/dL Creatinine 1.05 H (0.52-1.04) mg/dL POC Glucose (mg/dL) (75-99) mg/dL 03/25/20 Range/Units 11:46 RBC (3.80-5.40) m/uL Hgb (11.4-16.0) gm/dL Hct (34.0-46.0) % ABG HCO3 (21-25) mmol/L ABG Total CO2 (19-24) mmol/L ABG O2 Saturation (94-97) % Sodium (137-145) mmol/L Chloride (98-107) mmol/L BUN (7-17) mg/dL Creatinine (0.52-1.04) mg/dL POC Glucose (mg/dL) 122 H (75-99) mg/dL Microbiology - Last 24 Hours (Table) 03/20/20 00:01 Blood Culture - Preliminary Blood No Growth after 120 hours 03/24/20 00:55 Gram Stain - Preliminary Sputum Sputum Culture - Preliminary Assessment and Plan Assessment: * 64-year-old female, who has tracheostomy since March 2019, had a witnessed respiratory arrest followed by cardiac arrest at home, with downtime of about 10 minutes, although patient's daughter stating <5 minutes. Patient is 6 days post cardiac arrest, now showing signs of clinical improvement. * History of cardiac arrest in October 2018 during cardiac procedure. * History of vocal cord paralysis and previous tracheostomy. * COPD * Diabetes * Hypertension * Mild renal insufficiency. * X tobacco use Plan: * Patient on today's examination shows definite meaningful clinical response. She opened eyes, tried to move her head towards me, and also squeeze hands mildly on command. * Repeat computed tomography scan of the head yesterday, revealed no acute process, no cerebral edema or CVA. * Repeat EEG 03/23/2020 revealed diffuse slowing in moderate to high amplitude delta range, consistent with severe encephalopathy. No epileptiform activity was seen on this study. * Continue Keppra 750 mg twice a day (adjusted to her renal functions). * Continue Neurontin 300 mg 3 times a day based upon her renal functions. * Discussed with patient's daughter, and updated her about patient's current status. She was pleased to hear about her clinical improvement. * We will follow.
--- NOTE | 2020-03-25 15:11 | XR ---
EXAMINATION TYPE: XR chest 1V portable DATE OF EXAM: 03/25/2020 COMPARISON: 06/25/2019 HISTORY: Line placement TECHNIQUE: Single frontal view of the chest is obtained. FINDINGS: PICC line is seen at the level of the right atrium. NG tube and tracheostomy tube seen wit h by basilar consolidation and mild interstitial pattern. No pneumothorax. Tiny pleural effusions sug gested. IMPRESSION: 1. PICC line overlying the right atrium. 2. Pleural parenchymal changes stable correlate for interstitial pneumonitis versus mild venous conge stion.
--- NOTE | 2020-03-25 15:12 | IR ---
PICC LINE PLACEMENT: HISTORY: Infection requiring long-term antibiotic therapy PROCEDURE: Ultrasound guidance of PICC line placement. R[employer] F[employer] BUILDER: Dr. Gaines. COMPLICATIONS: None ANESTHESIA: 1. 1% Lidocaine locally. FINDINGS/TECHNIQUE: The procedure was explained to the patient. The risks, complications, benefits and alternatives were discussed and any questions were answered. Informed consent was obtained. The patient was placed supine on the fluoroscopic table and prepped and draped in the usual sterile fas ion. Utilizing a 21 gauge needle and sonographic guidance, access in the right cephalic vein was ac hieved and there is placement of a 0.018 guidewire. The vein is patent. A 5-F. sheath was placed ov er the guidewire. The guidewire and dilator were removed and a 5-F. Double lumen PICC line was place d through the sheath with the chest x-ray confirming the tip at the level of the SVC. The sheath was removed, the catheter was flushed and sutured into position. The patient was stable throughout the procedure and remained stable upon discharge from the Department of Radiology. The vein puncture was patent under ultrasound. A willis scale image was obtained to document patency of the vein punctured. All elements of the maximal barrier technique were utilized. IMPRESSION: 1. Successful PICC line placement under ultrasound performed bedside within the ICU.
--- NOTE | 2020-03-25 15:26 | P.PN ---
Subjective Progress Note Date: 03/25/20 CHIEF COMPLAINT: Cardiopulmonary arrest HISTORY OF PRESENT ILLNESS: Patient is a remains in the ICU. She remains intubated And remains unresponsive. We are following her for possible trach and PEG tube placement. She is afebrile.WBC 9.9 PHYSICAL EXAM: VITAL SIGNS: Reviewed. GENERAL: Well-developed in no acute distress. HEENT: No sclera icterus. Extraocular movements grossly intact. Moist buccal mucosa. Head is atraumatic, normocephalic. ABDOMEN: Soft. Nondistended. Nontender. NEUROLOGIC: Alert and oriented. Cranial nerves II through XII grossly intact. ASSESSMENT: 1. Status post out of hospital cardiopulmonary arrest 2. Status post mechanical ventilation with insertion of a pediatric tracheostomy tube and a prior tracheostoma site for hypoxic respiratory failure 3. Suspected anoxic brain injury with possible seizure activity 4. History of vocal cord paralysis and previous tracheostomy 5. Possible aspiration pneumonia 6. Acute systolic CHF exacerbation 7. History of coronary artery disease with cardiac stents PLAN: -Patient is scheduled for tracheostomy and PEG tube placement tomorrow with Dr. Amador -Hold tube feedings after midnight Physician Life Claims Examiner note has been reviewed by physician. Signing provider agrees with the documented findings, assessment, and plan of care. Objective - Vital Signs Vital signs: Vital Signs Temp 98.2 F 03/25/20 12:00 Pulse 63 03/25/20 15:14 Resp 24 03/25/20 14:00 BP 150/78 03/25/20 14:00 Pulse Ox 98 03/25/20 14:00 Intake & Output 03/24/20 03/25/20 03/25/20 18:59 06:59 18:59 Intake Total 2266.280 4886.267 935.416 Output Total 1450 1410 765 Balance 364.400 350.267 170.416 Weight 102.3 kg 103 kg Intake: IV 1030 1036 499 Dextrose 5% in Water 1, 200 000 ml @ 40 mls/hr IV . Q24H [facility] Rx#:[id number] Piperacillin-Tazobactam 3 75 100 100 .375 gm In Sodium Chloride 0.9% 100 ml @ 25 mls/hr IVPB Q8HR [facility] Rx# :[id number] Pressure bag 30 36 24 Sodium Chloride 0.9% 1, 825 900 75 000 ml @ 75 mls/hr IV . [id number] [facility] Rx#:[id number] levETIRAcetam IV 750 mg 100 100 In Sodium Chloride 0.9% 100 ml @ 400 mls/hr IVPB Q12HR [facility] Rx#:[id number] Intake, IV Titration 116.400 148.267 32.416 Amount Clevidipine Butyrate 25 116.400 148.267 32.416 mg In Empty Bag 1 bag @ 1 MG/HR 2 mls/hr IV .Q24H [facility] Rx#:[id number] Tube Feeding 578 516 344 Other 90 60 60 Output: Urine 1450 1410 765 Other: Voiding Method Indwelling Catheter Indwelling Catheter Indwelling Catheter ABP, PAP, CO, CI - Last Documented Arterial Blood Pressure 136/50 - Labs CBC & Chem 7: 03/25/20 05:08 03/25/20 05:08 Labs: Abnormal Lab Results - Last 24 Hours (Table) 03/24/20 03/24/20 03/25/20 Range/Units 16:45 19:40 00:38 RBC (3.80-5.40) m/uL Hgb (11.4-16.0) gm/dL Hct (34.0-46.0) % ABG HCO3 (21-25) mmol/L ABG Total CO2 (19-24) mmol/L ABG O2 Saturation (94-97) % Sodium (137-145) mmol/L Chloride (98-107) mmol/L BUN (7-17) mg/dL Creatinine (0.52-1.04) mg/dL POC Glucose (mg/dL) 173 H 202 H 133 H (75-99) mg/dL 03/25/20 03/25/20 03/25/20 Range/Units 04:00 05:08 05:08 RBC 3.79 L (3.80-5.40) m/uL Hgb 10.8 L (11.4-16.0) gm/dL Hct 33.8 L (34.0-46.0) % ABG HCO3 27 H (21-25) mmol/L ABG Total CO2 29 H (19-24) mmol/L ABG O2 Saturation 98.7 H (94-97) % Sodium 146 H (137-145) mmol/L Chloride 115 H (98-107) mmol/L BUN 31 H (7-17) mg/dL Creatinine 1.05 H (0.52-1.04) mg/dL POC Glucose (mg/dL) (75-99) mg/dL 03/25/20 Range/Units 11:46 RBC (3.80-5.40) m/uL Hgb (11.4-16.0) gm/dL Hct (34.0-46.0) % ABG HCO3 (21-25) mmol/L ABG Total CO2 (19-24) mmol/L ABG O2 Saturation (94-97) % Sodium (137-145) mmol/L Chloride (98-107) mmol/L BUN (7-17) mg/dL Creatinine (0.52-1.04) mg/dL POC Glucose (mg/dL) 122 H (75-99) mg/dL Microbiology - Last 24 Hours (Table) 03/20/20 00:01 Blood Culture - Preliminary Blood No Growth after 120 hours 03/24/20 00:55 Gram Stain - Preliminary Sputum Sputum Culture - Preliminary
[2020-03-25 18:10] LABS: Glucose,Whole Blood 107 mg/dL (75-99)
--- NOTE | 2020-03-25 19:41 | P.PN ---
Progress Note - Text Progress Note Date: 03/25/20 Chief Complaint: Decreased responsiveness History of presenting complaint: This is a 64-year-old patient of Dr. Finley. Chronic stable medical conditions include hypertension, hyperlipidemia, diabetic peripheral neuropathy. was in the hospital in October 2018 having cardiac arrest following LAD angioplasty. Also pulmonary krocnzfp-liudxmhbeo-ovwv was felt a left vocal cord paralysis probably from intubation. Patient was brought in by the EMS. Family had called closure short of breath. While they were on the phone vacation became unresponsive and collapsed into the bed. Then begin using a bag valve mask ventilation. When the EMS arrived patient was unresponsive she also went into ventricular fibrillation. She received 1 mg of epinephrine 1 shock and patient then came around. Downtime was about 10 minutes. Patient is in the ICU. On the ventilator. FiO2 50% and a PEEP of 5. Patient is on IV propofol and norepinephrine. Telemetry shows sinus rhythm. Has an NG tube. Per cardiology notes her EF is 35%. In the past. admitted with-cardiac arrest with underlying rhythm of ventricular fibrillation the downtime of tenderness, cardioverted, acute hypoxic respiratory failure on the ventilator, acute CHF exacerbation, lactic acidosis likely type II, aspiration pneumonia, and acute COPD exacerbation.started on IV Zosyn, IV Solu- Medrol. Initially intubated. Put on Cleviprex drip for blood pressure. Based on EEG placed on IV Keppra per neurology. Dose of Neurontin scaled back. Because of renal failure. [id number] the ventilator. NG tube in place. Telemetry -sinus rhythm. remains off sedation . brainstem reflexes present. No obvious purposeful movements. Review of systems:-Patient intubated Active Medications Acetaminophen (Acetaminophen Tab 325 Mg Tab) 650 mg PO Q4HR PRN PRN Reason: Fever and/or Mild Pain Last Admin: 03/25/20 03:40 Dose: 650 mg Documented by: Albuterol/Ipratropium (Ipratropium-Albuterol 3 Ml Neb) 3 ml INHALATION RT-Q4H [facility] Last Admin: 03/25/20 19:25 Dose: 3 ml Documented by: Albuterol/Ipratropium (Ipratropium-Albuterol 3 Ml Neb) 3 ml INHALATION RT-Q2H PRN PRN Reason: Shortness Of Breath Or Wheezing Aspirin (Aspirin 81 Mg) 81 mg PO DAILY [facility] Last Admin: 03/25/20 08:28 Dose: 81 mg Documented by: Carvedilol (Carvedilol 6.25 Mg Tab) 6.25 mg PO AC-BID [facility] Last Admin: 03/25/20 18:10 Dose: 6.25 mg Documented by: Chlorhexidine Gluconate (Chlorhexidine Gluconate 15 Ml Cup) 15 ml MUCOUS MEM BID [facility] Last Admin: 03/25/20 08:28 Dose: 15 ml Documented by: Ezetimibe (Ezetimibe 10 Mg Tab) 10 mg PO DAILY [facility] Last Admin: 03/25/20 08:28 Dose: 10 mg Documented by: Gabapentin (Gabapentin 300 Mg Cap) 300 mg PO TID [facility] Last Admin: 03/25/20 18:10 Dose: 300 mg Documented by: Heparin Sodium (Porcine) (Heparin Sodium,Porcine 5,000 Unit/Ml 1 Ml Vial) 5,000 unit SQ Q8HR [facility] Last Admin: 03/25/20 18:11 Dose: 5,000 unit Documented by: Hydromorphone HCl (Hydromorphone 0.5 Mg/0.5 Ml Syringe) 0.5 mg IVP Q6HR PRN PRN Reason: Pain Hydromorphone HCl (Hydromorphone 1 Mg/Ml 1 Ml Syringe) 1 mg IVP Q4H PRN PRN Reason: Pain Last Admin: 03/25/20 18:37 Dose: 1 mg Documented by: Levetiracetam 750 mg/ Sodium (Chloride) 107.5 mls @ 400 mls/hr IVPB Q12HR [facility] Last Admin: 03/25/20 08:27 Dose: 400 mls/hr Documented by: Clevidipine 25 mg/ IV Solution 50 mls @ 2 mls/hr IV .Q24H [facility]; Protocol Last Titration: 03/25/20 09:20 Dose: 0 mg/hr, 0 mls/hr Documented by: Dextrose/Water (Dextrose 5%-Water Iv Soln) 1,000 mls @ 40 mls/hr IV .Q24H [facility] Stop: 03/26/20 09:26 Last Admin: 03/25/20 09:36 Dose: 40 mls/hr Documented by: Insulin Aspart (Insulin Aspart (Novolog) 100 Unit/Ml Vial) 0 unit SQ Q4H [facility]; Protocol Last Admin: 03/25/20 18:29 Dose: Not Given Documented by: Insulin Detemir (Insulin Detemir (Levemir) 100 Unit/Ml Syr) 80 unit SQ HS [facility] Last Admin: 03/24/20 20:13 Dose: 80 unit Documented by: Lidocaine HCl (Lidocaine 1% Inj 10mg/Ml (20 Ml Mdv)) 5 ml INTRATRACH Q2HR PRN PRN Reason: coughing, ventilator Lisinopril (Lisinopril 10 Mg Tab) 10 mg PO DAILY [facility] Last Admin: 03/25/20 08:28 Dose: 10 mg Documented by: Lorazepam (Lorazepam 2 Mg/Ml Inj) 1 mg IV Q4HR PRN PRN Reason: Seizures Last Admin: 03/23/20 03:10 Dose: 1 mg Documented by: Miscellaneous Information (Potassium Replacement Protocol 1 Each Misc) 1 each MISCELLANE DAILY PRN; Protocol PRN Reason: Per Protocol Miscellaneous Information (Magnesium Replacement Protocol 1 Each Misc) 1 each MISCELLANE DAILY PRN; Protocol PRN Reason: Per Protocol Morphine Sulfate (Morphine Sulfate 4 Mg/Ml Syringe) 4 mg IV Q4HR PRN PRN Reason: Severe Pain Last Admin: 03/23/20 12:56 Dose: 4 mg Documented by: Naloxone HCl (Naloxone 0.4 Mg/Ml 1 Ml Vial) 0.2 mg IV Q2M PRN PRN Reason: Opioid Reversal Pantoprazole Sodium (Pantoprazole 40 Mg/10 Ml Vial) 40 mg IVP DAILY [facility] Last Admin: 03/25/20 08:28 Dose: 40 mg Documented by: Prasugrel (Prasugrel 10 Mg Tab) 10 mg PO DAILY [facility] Last Admin: 03/25/20 08:28 Dose: 10 mg Documented by: Physical examination: VITAL SIGNS: 98.9, 60, 24, 123/67, 98% on the ventilator GENERAL: laying in bed, intubated EYES: Pupils equal. Conjunctiva normal. HEENT: External appearance of nose and ears normal, oral cavity . NG tube NECK: JVD unable to assess, masses not palpable.stoma with the tracheostomy tube-connected to ventilator HEART: First and second heart sounds are normal; no edema. LUNGS: Respiratory rate increased, decreased breath sounds ABDOMEN: Soft, nontender, liver spleen not palpable, no masses palpable. PSYCH: Unable to assess NEUROLOGICAL: Pupils sluggish. Corneal reflex present. Gag reflex present. No spontaneous movements. INVESTIGATIONS, reviewed in the clinical context: White count 9.9 hemoglobin 10.8 potassium 3.6 creatinine 1.05 Chest x-ray possibly some infiltrate 2-D echocardiogram-EF 60-65%, mild to moderate pulmonary hypertension Repeat EEG-March 23-showing generalized cerebral dysfunction EEG suggestive of generalized cerebral dysfunction Admission testing White count 10.1 hemoglobin 13.4 platelets 293 potassium 5.8 bicarb 17 bun 42 creatinine 1.81 blood glucose 458 lactic acid 8.1 Troponin I less than 0.012, 0.056,0.085 EKG tracing personally reviewed by me-sinus rhythm low-voltage right bundle branch block pattern Computed tomography scan of the brain-negative Chest x-ray film personally reviewed by me-portable cardiomegaly venous prominence Assessment: -Cardiac arrest with underlying rhythm of ventricle fibrillation, with downtime of 10 minutes cardioverted, 1 dose of epinephrine -Acute hypoxic respiratory failure, requiring ventilator support-slow to respond -Acute on chronic congestive heart failure exacerbation from systolic dysfunction EF 25% -Lactic acidosis most likely type II. Cannot rule out infectious process. -Possible aspiration pneumonia -Acute COPD exacerbation in an ex-smoker, exposed to secondhand smoking-slow to respond -Possible tracheal stenosis following intubation -History of cardiac arrest following stenting to LAD -Coronary artery disease with stent to LAD -Diabetes mellitus 2 uncontrolled with hyper glycemia on insulin drip secondary to steroids -Essential hypertension -Hyperlipidemia -Diabetic peripheral neuropathy -Left vocal cord paralysis from intubation -Obesity BMI 33.9 -Consider anoxic brain injury. / encephalopathy.-Slow to respond. Patient remains off sedatives. On IV Keppra. -Secondary pulmonary hypertension Plan: on IV Keppra. Patient due for a tracheostomy revision and a PEG tube tomorrow by Dr. Amador. Prognosis guarded.
[2020-03-25 19:58] LABS: Glucose,Whole Blood 89 mg/dL (75-99)
[2020-03-25] MEDS: INSULIN DETEMIR (LEVEMIR) 100 UNIT/ML SYR SQ SCH (21:12)
[2020-03-25 23:47] LABS: Glucose,Whole Blood 152 mg/dL (75-99)
[2020-03-26] MEDS: INSULIN ASPART (NovoLOG) 100 UNIT/ML VIAL SQ SCH ×6 (00:01→20:44)
[2020-03-26] MEDS: HYDROmorphone 1 MG/ML 1 ML SYRINGE IVP PRN ×2 (00:01→07:10)
[2020-03-26] MEDS: IPRATROPIUM-ALBUTEROL 3 ML NEB INHALATION SCH ×6 (03:46→23:10)
[2020-03-26 03:51] LABS: Glucose,Whole Blood 124 mg/dL (75-99)
[2020-03-26 04:21] LABS: HCT 32.1 % (34.0-46.0); HGB 10.4 gm/dL (11.4-16.0); Hypochromasia Slight; MCH 29.2 pg (25.0-35.0); MCHC 32.5 g/dL (31.0-37.0); MCV 89.9 fL (80.0-100.0); Mean Platelet Volume 8.5; Platelet Count 171 k/uL (150-450); RBC 3.56 m/uL (3.80-5.40); RDW 14.1 % (11.5-15.5); WBC 7.9 k/uL (3.8-10.6)
[2020-03-26 04:30] LABS: Calcium 8.6 mg/dL (8.4-10.2); Potassium 3.9 mmol/L (3.5-5.1)
[2020-03-26 05:08] LABS: ABG Base Excess 3.6 mmol/L; ABG HCO3 28 mmol/L (21-25); ABG Oxygen Saturation 97.1 % (94-97); ABG PCO2 42 mmHg (35-45); ABG PH 7.43 (7.35-7.45); ABG PO2 78 mmHg (83-108); ABG TCO2 29 mmol/L (19-24); Allen Test Performed? Yes
[2020-03-26] MEDS: carvediloL 6.25 MG TAB PO SCH ×2 (06:26→18:07)
[2020-03-26] MEDS: POTASSIUM CHLORIDE 10 MEQ in WATER FOR INJECTION 1 100ML.BAG IVPB SCH ×2 (06:26→08:20)
[2020-03-26] MEDS: PANTOPRAZOLE 40 MG/10 ML VIAL IVP SCH (08:19)
[2020-03-26] MEDS: levETIRAcetam IV 750 MG in SODIUM CHLORIDE 0.9% 100 ML IVPB SCH ×2 (08:20→20:05)
[2020-03-26] MEDS: CHLORHEXIDINE GLUCONATE 15 ML CUP MUCOUS MEM SCH ×2 (08:21→20:05)
[2020-03-26] MEDS: EZETIMIBE 10 MG TAB PO SCH (08:21)
[2020-03-26] MEDS: ASPIRIN 81 MG PO SCH (08:21)
[2020-03-26] MEDS: lisinopriL 10 MG TAB PO SCH (08:21)
[2020-03-26] MEDS: GABAPENTIN 300 MG CAP PO SCH ×3 (08:21→23:20)
[2020-03-26] MEDS: HEPARIN SODIUM,PORCINE 5,000 UNIT/ML 1 ML VIAL SQ SCH ×4 (08:22→23:20)
[2020-03-26 08:31] LABS: Glucose,Whole Blood 114 mg/dL (75-99)
[2020-03-26] MEDS: PRASUGREL 10 MG TAB PO SCH (08:31)
--- NOTE | 2020-03-26 10:51 | PN ---
PROGRESS NOTE PULMONARY/CRITICAL CARE PROGRESS NOTE: DATE OF SERVICE: 03/26/2020 This is a 64-year-old female. She is status post [id number]-[id number] cardiopulmonary arrest with about 10 minutes of resuscitation before there was return of spontaneous circulation. The arrest was primarily a ventricular fibrillation and pulseless electrical activity arrest. The patient had a previous tracheotomy, has chronic stoma. On the scene, EMS did insert a small pediatric tracheostomy tube. She has been here in the ICU. She has suffered anoxic brain injury. She has had no significant improvement in her overall neurologic function. We have spoken to her daughter numerous times about code status and etc, she apparently at this point wants everything done. She is going to have a tracheostomy revision and PEG tube placed today. We did ask the nurses to consult [facility] for placement. Currently, she is on the volume assist- control mode, rate of 24, tidal volume 350, FiO2 of 35%, PEEP of 5. Current vent settings and current blood gases show pO2 of 78, pCO2 42, pH of 7.43. She is getting D5W at 30 mL an hour, Vital high-protein, which is on hold at 43 mL an hour which is goal. Dr. Amador to do the trach revision and PEG tube today. The patient did have the art line and central line removed. A PICC line was placed. EEG showed diffuse slowing consistent with anoxic brain injury. Vital signs are reviewed. Temperature 99.4, heart rate 64, respiratory rate 24, blood pressure 144/81 mean 98, saturations are 97% on 35% FiO2. Appears in no acute distress. HEENT: Examination is grossly unremarkable. Neck is supple. There is a midline pediatric tracheostomy tube in place. She is connected to the ventilator. CARDIOVASCULAR: Examination reveals regular rhythm and rate. Heart rate 64 beats per minute. S1, S2 normal. Heart sounds distant. LUNGS: Reveal diffuse coarse rhonchi bilaterally. ABDOMEN: Soft. No bowel sounds. EXTREMITIES: Intact. Mild edema. SKIN: Without rash. NEUROLOGIC: Exam is unchanged. She does not respond to verbal or painful stimuli to any great extent. She does have a gag reflex. She does have corneal reflexes. Doll's eyes reflex is present. She does trigger the ventilator. LABS: Reviewed. White count 7.9, hemoglobin 10.4, hematocrit 32.1, platelet count 171,000. Blood gases show a pO2 of 78, pCO2 42 and a pH of 7.43. Sodium, potassium normal. Chloride 111, CO2 is 26, anion gap is 6. BUN and creatinine were 37 and 1.10. Microbiology is currently negative. The most recent chest x-ray shows small lung volumes. There is bibasilar atelectasis. MEDICATIONS: Reviewed. She is currently on Tylenol, aspirin, Coreg, chlorhexidine, Zetia, Neurontin, heparin subcu, Dilaudid, insulin subcu, DuoNeb, Keppra, lisinopril, Ativan p.r.n., magnesium replacement, morphine, Narcan, Protonix, potassium replacement, and Effient. ASSESSMENT: 1. Status post [id number]-swknbrzd cardiopulmonary arrest with 10 minutes of resuscitation with eventual return of spontaneous circulation in a patient with a predominant ventricular fibrillation/PEA arrest. 2. Status post mechanical ventilation with insertion of a pediatric tracheostomy to the prior tracheostoma site for hypoxemic respiratory failure beginning on March 19. 3. Anticipated PEG tube placement and tracheal revision surgery, done by Dr. Amador today. 4. Possible aspiration pneumonia. 5. Acute systolic congestive heart failure. 6. Ischemic cardiomyopathy. 7. History of vocal cord paralysis and previous tracheostomy. 8. History of chronic obstructive pulmonary disease. 9. History of coronary artery disease with previous cardiac intervention and stenting of the LAD and subsequent cardiac arrest. 10.Benign essential hypertension. 11.Diabetic peripheral neuropathy. 12.Severe anoxic brain injury, possible underlying seizure activity. PLAN: Currently, the patient is doing about the same. She is chronically and critically ill but relatively stable. The patient will have a tracheal revision and PEG tube placement today by Dr. Amador. Her blood pressure has been better controlled. She is currently not on Cleviprex. She continues getting nourished with Vital high-protein at goal. Her blood gases are reasonable. Will continue to follow. Art line and central line removed. PICC line was placed. She is being readied for transfer to [facility]. MMODL / IJN: [id number] /
--- NOTE | 2020-03-26 10:51 | XR ---
EXAMINATION TYPE: XR chest 1V portable DATE OF EXAM: 03/26/2020 CLINICAL HISTORY: Rhonchi crackles. TECHNIQUE: Portable frontal view of the chest. COMPARISON: 03/25/2020 chest radiograph FINDINGS: Low lung volumes. Tracheostomy tube overlies the tracheal air column. Enteric tube distal tip overlies the right upper quadrant over the projected area of the gastric antrum versus proximal d uodenum. Right PICC distal tip over the right atrium. Increased interstitial markings mildly increase d versus 03/25/2020. Small bilateral pleural effusions. No pneumothorax. IMPRESSION: 1. Mildly increased interstitial markings versus 03/25/2020, which may represent interstitial pneumon itis or pulmonary vascular congestion. 2. Small bilateral pleural effusions. 3. Enteric tube distal tip overlies the right upper quadrant over the projected area of the gastric a ntrum versus the proximal duodenum.
[2020-03-26 12:13] LABS: Glucose,Whole Blood 117 mg/dL (75-99)
[2020-03-26] MEDS: HYDROmorphone 0.5 MG/0.5 ML SYRINGE IVP PRN ×2 (13:38→18:40)
--- NOTE | 2020-03-26 14:47 | P.PN ---
Subjective Progress Note Date: 03/26/20 03/26/2020: Patient unresponsive today. She is off sedation. Patient is having some very fine tremor of her chin/arm, appears metabolic. 03/25/2020: Patient is off sedation. Patient opened her eyes to calling her name. She does follow commands to some extent. Please refer to examination below. No seizure-like activity. Objective - Vital Signs Vital signs: Vital Signs Temp 100.5 F H 03/26/20 12:00 Pulse 96 03/26/20 14:00 Resp 19 03/26/20 14:00 BP 132/65 03/26/20 14:00 Pulse Ox 96 03/26/20 14:00 Intake & Output 03/25/20 03/26/20 03/26/20 18:59 06:59 18:59 Intake Total 1254.416 961 332.634 Output Total 1315 938 550 Balance -60.584 23 -217.366 Weight 102.2 kg 102.2 kg Intake: IV 659 580 320 Dextrose 5% in Water 1, 360 480 320 000 ml @ 40 mls/hr IV . Q24H [facility] Rx#:[id number] Piperacillin-Tazobactam 3 100 .375 gm In Sodium Chloride 0.9% 100 ml @ 25 mls/hr IVPB Q8HR [facility] Rx# :[id number] Pressure bag 24 Sodium Chloride 0.9% 1, 75 000 ml @ 75 mls/hr IV . [id number] [facility] Rx#:[id number] levETIRAcetam IV 750 mg 100 100 In Sodium Chloride 0.9% 100 ml @ 400 mls/hr IVPB Q12HR [facility] Rx#:[id number] Intake, IV Titration 32.416 12.634 Amount Clevidipine Butyrate 25 32.416 12.634 mg In Empty Bag 1 bag @ 1 MG/HR 2 mls/hr IV .Q24H [facility] Rx#:[id number] Tube Feeding 473 301 Other 90 80 Output: Urine 1315 938 550 Other: Voiding Method Indwelling Catheter Indwelling Catheter Indwelling Catheter ABP, PAP, CO, CI - Last Documented Arterial Blood Pressure 136/50 - Exam 03/26/2020: Patient is not responsive today. She does not respond to noxious stimuli, or calling her name. Early patient has received Dilaudid 1 mg 3 doses in the last 12 hours. She is probably medicated. 03/25/2020: On examination patient is an elderly female, who is encephalopathic, not on any sedation. Patient opened her eyes to calling her name loudly. After repeated attempts, patient even turn her head slightly towards me on the right side. Patient squeezed hands couple times with each hand, which appears very meaningful response. No seizure-like activity noticed. Pupils are 3-4 mm, reacting. Patient has right lenticular opacity. Corneal reflex are present. Tone is equal. - Labs CBC & Chem 7: 03/26/20 04:00 03/26/20 04:00 Labs: Abnormal Lab Results - Last 24 Hours (Table) 03/25/20 03/25/20 03/26/20 Range/Units 18:09 23:46 03:49 RBC (3.80-5.40) m/uL Hgb (11.4-16.0) gm/dL Hct (34.0-46.0) % ABG pO2 (83-108) mmHg ABG HCO3 (21-25) mmol/L ABG Total CO2 (19-24) mmol/L ABG O2 Saturation (94-97) % Chloride (98-107) mmol/L BUN (7-17) mg/dL Creatinine (0.52-1.04) mg/dL Glucose (74-99) mg/dL POC Glucose (mg/dL) 107 H 152 H 124 H (75-99) mg/dL 03/26/20 03/26/20 03/26/20 Range/Units 04:00 04:00 05:06 RBC 3.56 L (3.80-5.40) m/uL Hgb 10.4 L (11.4-16.0) gm/dL Hct 32.1 L (34.0-46.0) % ABG pO2 78 L (83-108) mmHg ABG HCO3 28 H (21-25) mmol/L ABG Total CO2 29 H (19-24) mmol/L ABG O2 Saturation 97.1 H (94-97) % Chloride 111 H (98-107) mmol/L BUN 37 H (7-17) mg/dL Creatinine 1.10 H (0.52-1.04) mg/dL Glucose 123 H (74-99) mg/dL POC Glucose (mg/dL) (75-99) mg/dL 03/26/20 03/26/20 Range/Units 08:30 12:11 RBC (3.80-5.40) m/uL Hgb (11.4-16.0) gm/dL Hct (34.0-46.0) % ABG pO2 (83-108) mmHg ABG HCO3 (21-25) mmol/L ABG Total CO2 (19-24) mmol/L ABG O2 Saturation (94-97) % Chloride (98-107) mmol/L BUN (7-17) mg/dL Creatinine (0.52-1.04) mg/dL Glucose (74-99) mg/dL POC Glucose (mg/dL) 114 H 117 H (75-99) mg/dL Microbiology - Last 24 Hours (Table) 03/24/20 00:55 Gram Stain - Final Sputum Sputum Culture - Final 03/20/20 00:01 Blood Culture - Final Blood No Growth after 144 hours Assessment and Plan Assessment: * 64-year-old female, who has tracheostomy since March 2019, had a witnessed respiratory arrest followed by cardiac arrest at home, with downtime of about 10 minutes, although patient's daughter stating <5 minutes. Patient is 6 days post cardiac arrest, now showing signs of clinical improvement. * History of cardiac arrest in October 2018 during cardiac procedure. * History of vocal cord paralysis and previous tracheostomy. * COPD * Diabetes * Hypertension * Mild renal insufficiency. * X tobacco use Plan: * Patient was much better today, but today is worse. This is probably she received 1 mg Dilaudid 3 times in the last 24 hours. She received Dilaudid 1 mg yesterday at 6:37 PM, then 1 mg at midnight and then another 1 mg at 7:10 AM this morning. Suggest no sedation, pain medication to assess mental status. * Repeat computed tomography scan of the head 03/24/2020, revealed no acute process, no cerebral edema or CVA. * Repeat EEG 03/23/2020 revealed diffuse slowing in moderate to high amplitude delta range, consistent with severe encephalopathy. No epileptiform activity was seen on this study. * Continue Keppra 750 mg twice a day (adjusted to her renal functions). * Continue Neurontin 300 mg 3 times a day based upon her renal functions. * Patient undergoing revision of tracheostomy tube today. * Discussed with patient's daughter in detail. Dr. Catalino Kearns will resume neurology service on 03/29/2020.
[2020-03-26] MEDS ORDERED: PROPOFOL 10 MG/ML 20 ML VIAL IV ONE (15:10)
[2020-03-26] MEDS ORDERED: SUCCINYLCHOLINE CHLORIDE 100 MG/5 ML SYR IV ONE (15:10)
[2020-03-26] MEDS ORDERED: MIDAZOLAM 2 MG/2 ML VIAL ONE (15:10)
[2020-03-26] MEDS ORDERED: fentaNYL (PF) 50 MCG/ML 2 ML AMP ONE (15:10)
[2020-03-26] MEDS ORDERED: IV FLUID CONTINUATION 1,000 ML IV ONE (15:22)
--- NOTE | 2020-03-26 15:50 | P.OP ---
Preoperative Diagnosis: Breasts are failure Protein calorie malnutrition Postoperative Diagnosis: Breasts are failure Protein calorie malnutrition Procedure(s) Performed: PEG tube placement Anesthesia: KLAUS Surgeon: Caesar Amador Estimated Blood Loss (ml): 5 Pathology: none sent Condition: stable Disposition: PACU Description of Procedure: The patient was brought to the operating room. Her neck was prepped in the sterile fashion. The patient was attempted to be intubated by anesthesia. However there was a stricture and significant swelling of the hypopharynx which were vented endotracheal tube intubation. Due to the patient's inability into the tracheostomy was not revised. Next the gastroscope placed oropharynx passed in the esophagus and stomach. A suitable light reflux was then seen the anterior abdominal wall with some was inflated with air. The needle was placed in the stomach under direct visualization. The needle was then snared and then the wire was placed in the needle and the wire was snared and brought out through the oropharynx. The PEG tube placed overtop the wire and brought down into the stomach. The PEG tube and secured at the 4 cm patricia. The one-piece bolster was used. Patient top procedure well and the patient will be brought back to the operating for possible tracheostomy revision once her swelling improves.
[2020-03-26] MEDS: LACTATED RINGERS 1,000 ML IV SCH (16:56)
[2020-03-26 17:02] LABS: Glucose,Whole Blood 166 mg/dL (75-99)
[2020-03-26] MEDS: LORazepam 2 MG/ML INJ IV PRN (18:52)
--- NOTE | 2020-03-26 20:09 | P.PN ---
Progress Note - Text Progress Note Date: 03/26/20 Chief Complaint: Decreased responsiveness History of presenting complaint: This is a 64-year-old patient of Dr. Finley. Chronic stable medical conditions include hypertension, hyperlipidemia, diabetic peripheral neuropathy. was in the hospital in October 2018 having cardiac arrest following LAD angioplasty. Also pulmonary itzvhucd-htijhncsis-tyqh was felt a left vocal cord paralysis probably from intubation. Patient was brought in by the EMS. Family had called closure short of breath. While they were on the phone vacation became unresponsive and collapsed into the bed. Then begin using a bag valve mask ventilation. When the EMS arrived patient was unresponsive she also went into ventricular fibrillation. She received 1 mg of epinephrine 1 shock and patient then came around. Downtime was about 10 minutes. Patient is in the ICU. On the ventilator. FiO2 50% and a PEEP of 5. Patient is on IV propofol and norepinephrine. Telemetry shows sinus rhythm. Has an NG tube. Per cardiology notes her EF is 35%. In the past. admitted with-cardiac arrest with underlying rhythm of ventricular fibrillation the downtime of tenderness, cardioverted, acute hypoxic respiratory failure on the ventilator, acute CHF exacerbation, lactic acidosis likely type II, aspiration pneumonia, and acute COPD exacerbation.started on IV Zosyn, IV Solu- Medrol. Initially intubated. Put on Cleviprex drip for blood pressure. Based on EEG placed on IV Keppra per neurology. Dose of Neurontin scaled back. Because of renal failure. [id number]-df the ventilator. FiO2 35 PEEP of 5. NG tube in place. Sinus rhythm. Later this afternoon PEG tube was placed by Dr Amador. No purposeful movements but the patient. Does open eyes to stimulus Review of systems:-Patient intubated Active Medications Acetaminophen (Acetaminophen Tab 325 Mg Tab) 650 mg PO Q4HR PRN PRN Reason: Fever and/or Mild Pain Last Admin: 03/25/20 03:40 Dose: 650 mg Documented by: Albuterol/Ipratropium (Ipratropium-Albuterol 3 Ml Neb) 3 ml INHALATION RT-Q4H [facility] Last Admin: 03/26/20 19:07 Dose: 3 ml Documented by: Albuterol/Ipratropium (Ipratropium-Albuterol 3 Ml Neb) 3 ml INHALATION RT-Q2H PRN PRN Reason: Shortness Of Breath Or Wheezing Aspirin (Aspirin 81 Mg) 81 mg PO DAILY [facility] Last Admin: 03/26/20 08:21 Dose: Not Given Documented by: Carvedilol (Carvedilol 6.25 Mg Tab) 6.25 mg PO AC-BID [facility] Last Admin: 03/26/20 18:07 Dose: 6.25 mg Documented by: Chlorhexidine Gluconate (Chlorhexidine Gluconate 15 Ml Cup) 15 ml MUCOUS MEM BID [facility] Last Admin: 03/26/20 20:05 Dose: 15 ml Documented by: Ezetimibe (Ezetimibe 10 Mg Tab) 10 mg PO DAILY [facility] Last Admin: 03/26/20 08:21 Dose: 10 mg Documented by: Gabapentin (Gabapentin 300 Mg Cap) 300 mg PO TID [facility] Last Admin: 03/26/20 16:58 Dose: 300 mg Documented by: Heparin Sodium (Porcine) (Heparin Sodium,Porcine 5,000 Unit/Ml 1 Ml Vial) 5,000 unit SQ Q8HR [facility] Last Admin: 03/26/20 16:57 Dose: 5,000 unit Documented by: Hydromorphone HCl (Hydromorphone 0.5 Mg/0.5 Ml Syringe) 0.5 mg IVP Q6HR PRN PRN Reason: Pain Last Admin: 03/26/20 18:40 Dose: 0.5 mg Documented by: Hydromorphone HCl (Hydromorphone 1 Mg/Ml 1 Ml Syringe) 1 mg IVP Q6HR PRN PRN Reason: Pain Levetiracetam 750 mg/ Sodium (Chloride) 107.5 mls @ 400 mls/hr IVPB Q12HR [facility] Last Admin: 03/26/20 20:05 Dose: 400 mls/hr Documented by: Clevidipine 25 mg/ IV Solution 50 mls @ 2 mls/hr IV .Q24H [facility]; Protocol Last Titration: 03/26/20 18:14 Dose: 6 mg/hr, 12 mls/hr Documented by: Lactated Ringer's (Lactated Ringers) 1,000 mls @ 20 mls/hr IV .Q24H [facility] Last Admin: 03/26/20 16:56 Dose: Not Given Documented by: Insulin Aspart (Insulin Aspart (Novolog) 100 Unit/Ml Vial) 0 unit SQ Q4H [facility]; Protocol Last Admin: 03/26/20 17:04 Dose: 3 unit Documented by: Insulin Detemir (Insulin Detemir (Levemir) 100 Unit/Ml Syr) 80 unit SQ HS [facility] Lidocaine HCl (Lidocaine 1% Inj 10mg/Ml (20 Ml Mdv)) 5 ml INTRATRACH Q2HR PRN PRN Reason: coughing, ventilator Lisinopril (Lisinopril 10 Mg Tab) 10 mg PO DAILY [facility] Last Admin: 03/26/20 08:21 Dose: 10 mg Documented by: Lorazepam (Lorazepam 2 Mg/Ml Inj) 1 mg IV Q4HR PRN PRN Reason: Seizures Last Admin: 03/26/20 18:52 Dose: 1 mg Documented by: Miscellaneous Information (Potassium Replacement Protocol 1 Each Mis) 1 each MISCELLANE DAILY PRN; Protocol PRN Reason: Per Protocol Miscellaneous Information (Magnesium Replacement Protocol 1 Each Misc) 1 each MISCELLANE DAILY PRN; Protocol PRN Reason: Per Protocol Morphine Sulfate (Morphine Sulfate 4 Mg/Ml Syringe) 4 mg IV Q4HR PRN PRN Reason: Severe Pain Last Admin: 03/23/20 12:56 Dose: 4 mg Documented by: Naloxone HCl (Naloxone 0.4 Mg/Ml 1 Ml Vial) 0.2 mg IV Q2M PRN PRN Reason: Opioid Reversal Pantoprazole Sodium (Pantoprazole 40 Mg/10 Ml Vial) 40 mg IVP DAILY [facility] Last Admin: 03/26/20 08:19 Dose: 40 mg Documented by: Prasugrel (Prasugrel 10 Mg Tab) 10 mg PO DAILY [facility] Last Admin: 03/26/20 08:31 Dose: Not Given Documented by: Physical examination: VITAL SIGNS: 99.4, 64, 24, 134/81, 97% on the ventilator GENERAL: laying in bed, intubated EYES: Pupils equal. Conjunctiva normal. HEENT: External appearance of nose and ears normal, oral cavity . NG tube NECK: JVD unable to assess, masses not palpable.stoma with the tracheostomy tube-connected to ventilator HEART: First and second heart sounds are normal; no edema. LUNGS: Respiratory rate increased, decreased breath sounds ABDOMEN: Soft, nontender, liver spleen not palpable, no masses palpable. PSYCH: Unable to assess NEUROLOGICAL: Pupils sluggish. Corneal reflex present. Gag reflex present. No spontaneous movements. INVESTIGATIONS, reviewed in the clinical context: White count 7.9 globin 10.4 potassium 3.9 bun 37 creatinine 1.10 Chest x-ray possibly some infiltrate 2-D echocardiogram-EF 60-65%, mild to moderate pulmonary hypertension Repeat EEG-March 23-showing generalized cerebral dysfunction EEG suggestive of generalized cerebral dysfunction Admission testing White count 10.1 hemoglobin 13.4 platelets 293 potassium 5.8 bicarb 17 bun 42 creatinine 1.81 blood glucose 458 lactic acid 8.1 Troponin I less than 0.012, 0.056,0.085 EKG tracing personally reviewed by me-sinus rhythm low-voltage right bundle branch block pattern Computed tomography scan of the brain-negative Chest x-ray film personally reviewed by me-portable cardiomegaly venous prominence Assessment: -Cardiac arrest with underlying rhythm of ventricle fibrillation, with downtime of 10 minutes cardioverted, 1 dose of epinephrine -Acute hypoxic respiratory failure, requiring ventilator support-slow to respond -Acute on chronic congestive heart failure exacerbation from systolic dysfunction EF 25% -Lactic acidosis most likely type II. Cannot rule out infectious process. -Possible aspiration pneumonia -Acute COPD exacerbation in an ex-smoker, exposed to secondhand smoking-slow to respond -Possible tracheal stenosis following intubation -History of cardiac arrest following stenting to LAD -Coronary artery disease with stent to LAD -Diabetes mellitus 2 uncontrolled with hyper glycemia on insulin drip secondary to steroids -Essential hypertension -Hyperlipidemia -Diabetic peripheral neuropathy -Left vocal cord paralysis from intubation -Obesity BMI 33.9 -Consider anoxic brain injury. / encephalopathy.-Slow to respond. Patient remains off sedatives. On IV Keppra. -Secondary pulmonary hypertension -PEG tube placed today March [address] Amador Plan: Patient remains on IV Keppra and other medications. Anoxic brain injury present. Patient being followed by neurology and supervisor shop. Prognosis remains guarded.
[2020-03-26 20:42] LABS: Glucose,Whole Blood 134 mg/dL (75-99)
[2020-03-26] MEDS: CLEVIDIPINE BUTYRATE 25 MG in EMPTY BAG 1 BAG IV SCH (23:48)
[2020-03-27 00:02] LABS: Glucose,Whole Blood 138 mg/dL (75-99)
[2020-03-27] MEDS: INSULIN ASPART (NovoLOG) 100 UNIT/ML VIAL SQ SCH ×6 (00:13→20:34)
[2020-03-27] MEDS: IPRATROPIUM-ALBUTEROL 3 ML NEB INHALATION SCH ×6 (02:56→23:28)
[2020-03-27 03:46] LABS: Glucose,Whole Blood 140 mg/dL (75-99)
[2020-03-27 04:28] LABS: ABG Base Excess 1.5 mmol/L; ABG HCO3 25 mmol/L (21-25); ABG Oxygen Saturation 98.5 % (94-97); ABG PCO2 36 mmHg (35-45); ABG PH 7.46 (7.35-7.45); ABG PO2 91 mmHg (83-108); ABG TCO2 26 mmol/L (19-24); Allen Test Performed? Yes
[2020-03-27 04:54] LABS: Basophils % (A) 0 %; Eosinophils # (A) 0.3 k/uL (0-0.7); Eosinophils % (A) 3 %; HCT 32.9 % (34.0-46.0); HGB 10.1 gm/dL (11.4-16.0); Lymphocytes % (A) 10 %; MCH 27.4 pg (25.0-35.0); MCHC 30.7 g/dL (31.0-37.0); Mean Platelet Volume 9.5; Monocytes # (A) 0.6 k/uL (0-1.0); Monocytes % (A) 6 %; Neutrophils # (A) 8.3 k/uL (1.3-7.7); Neutrophils % (A) 81 %; Platelet Count 182 k/uL (150-450); RDW 13.9 % (11.5-15.5); WBC 10.3 k/uL (3.8-10.6)
[2020-03-27 05:02] LABS: Calcium 8.6 mg/dL (8.4-10.2); Potassium 3.8 mmol/L (3.5-5.1)
[2020-03-27] MEDS ORDERED: POTASSIUM BICARBONATE/CIT AC 20 MEQ TABLET.EFF NG-TUBE SCH (06:00)
[2020-03-27] MEDS: carvediloL 6.25 MG TAB PO SCH ×2 (06:30→15:19)
[2020-03-27] MEDS: LACTATED RINGERS 1,000 ML IV SCH (07:15)
--- NOTE | 2020-03-27 08:00 | CDI ---
Documentation Clarification Form Date: 03/27/2020 07:56:15 AM From: Sarah Plasencia RN, CCDS Admit Date: 03/20/2020 01:26:00 AM Patient Name: Nicolasa Fortune Visit Number: [id number] ATTENTION: The Clinical Documentation Specialists (CDI) and [facility] Coding Staff appreciate your assistance in clarifying documentation. Please respond to the clarification below the line at the bottom and electronically sign. The CDI & [facility] Coding staff will review the response and follow-up if needed. Please note: Queries are made part of the Legal Health Record. If you have any questions, please contact the author of this message via ITS. Dr. Caesar Amador Malnutrition has been documented in 03/26 Surgical Procedure note and requires further specificity. History/Risk Factors: Cardiopulmonary arrest hx and this admission, CAD, CVA, DM2, Hx of trach, currently being utilized for MV Clinical Indicators: 03/19-03/27 Labs: elevated BUN and Creatinine currently declining, fluctuating blood glucose, Hgb A1C 9.6, Lactic acid 8.1, Total Protein 5.7, Albumin 2.8 Current BMI: 35.3 Insufficient energy intake: Patient is maintained NPO- 03/22 recommendations for EN made Loss of muscle mass: cannot be adequately assessed d/t patient LOC and possible anoxic brain injury. Fluid accumulation: trace to mild peripheral edema documented Treatment: Dietary Consult: Patient is overweight with Class 1 obesity, 161% of IBW Supplements: Vital High Protein rate adjusted based on Patient IVF and IV Meds Lab monitoring: Am Daily In your professional opinion, can you please clarify if these findings signify one of the following conditions? Mild Protein-Calorie Malnutrition Moderate Protein-Calorie Malnutrition Severe Protein-Calorie Malnutrition Other condition, please specify Unable to determine (Last Revision: December 2018) Severe protein calorie malnutrition MTDD
--- NOTE | 2020-03-27 08:03 | XR ---
EXAMINATION TYPE: XR chest 1V portable DATE OF EXAM: 03/27/2020 CLINICAL HISTORY: Vent to trach. TECHNIQUE: Portable semiupright view of the chest. COMPARISON: 03/25/2020 chest radiograph FINDINGS: Interval removal of enteric tube. Tracheostomy tube and right PICC remain. Mildly improved aeration of the bilateral lungs. Persistent small bilateral pleural effusions. No pneumothorax. IMPRESSION: Mildly improved aeration of the bilateral lungs. Small bilateral pleural effusions.
[2020-03-27 08:29] LABS: Glucose,Whole Blood 153 mg/dL (75-99)
[2020-03-27] MEDS: levETIRAcetam IV 750 MG in SODIUM CHLORIDE 0.9% 100 ML IVPB SCH (08:32)
[2020-03-27] MEDS: EZETIMIBE 10 MG TAB PO SCH (08:33)
[2020-03-27] MEDS: GABAPENTIN 300 MG CAP PO SCH ×3 (08:33→21:48)
[2020-03-27] MEDS: lisinopriL 10 MG TAB PO SCH (08:33)
[2020-03-27] MEDS: PANTOPRAZOLE 40 MG/10 ML VIAL IVP SCH (08:33)
[2020-03-27] MEDS: ACETAMINOPHEN TAB 325 MG TAB PO PRN ×2 (08:33→15:18)
[2020-03-27] MEDS: CHLORHEXIDINE GLUCONATE 15 ML CUP MUCOUS MEM SCH ×2 (08:33→19:59)
[2020-03-27] MEDS: amLODIPine 10 MG TAB PO SCH (08:54)
[2020-03-27 12:12] LABS: Glucose,Whole Blood 132 mg/dL (75-99)
--- NOTE | 2020-03-27 13:00 | PN ---
PROGRESS NOTE PULMONARY/CRITICAL CARE PROGRESS NOTE: Critical care time 33 minutes. DATE OF SERVICE: 03/27/2020 HISTORY: 64-year-old female status post [id number] cardiopulmonary arrest with about 10 minutes of resuscitation before there was return of spontaneous circulation. The patient was primarily in ventricular fibrillation arrest along with pulseless electrical activity. The patient had a previous tracheotomy and had a chronic but small stoma. On the scene, EMS did insert a small pediatric tracheostomy tube. We have asked our surgical colleagues to do a PEG tube on this patient and also revise the tracheostomy site. The patient suffered significant anoxic brain injury. She has been off sedatives now for a number of days and has not had any significant neurologic improvement. We spoken to the daughter numerous times about code status, etc., but at this point wants everything done. The patient is being readied for transfer to a long- term acute care facility. Currently, she is on the volume assist-control mode rate of 24, tidal volume 350, FiO2 of 35%, PEEP of 5. Blood gases show pO2 of 91, pCO2 36 pH 7.46. The patient is currently getting lactated Ringer's at 20 mL an hour. Tube feeds are on hold pending the 24 hours post PEG tube time limit at which time the patient's tube feeds can be restarted. The PEG tube was done yesterday. We were hoping for a trach revision yesterday as well, but apparently the trach revision will be done today. The patient have amlodipine added to her regimen. She has been on and off the Cleviprex. We gave her amlodipine 10 mg. Microbiology has been negative. PHYSICAL EXAMINATION: VITAL SIGNS: Current vital signs are reviewed. Temperature is 99.1, heart rate 80, respiratory rate 26, blood pressure 109/54, mean 72, saturations are 98%. GENERAL: She appears in no acute distress. HEENT: Examination is grossly unremarkable. NECK: Supple. Full range of motion. No adenopathy. Neck veins are flat. CARDIOVASCULAR: Examination reveals regular rhythm and rate. Heart rate 80. S1, S2 normal. LUNGS: Reveal coarse bilateral rhonchi. Breath sounds equal. No wheezes. ABDOMEN: Soft. No bowel sounds. EXTREMITIES are intact. No cyanosis, clubbing, or significant edema. SKIN: Without rash. NEUROLOGIC: Neurologic examination unchanged. The patient is unresponsive. The patient has significant anoxic brain injury, but is not brain . LABS: Reviewed. White count 10.3, hemoglobin 10.1, hematocrit 32.9, platelet count 182,000, PO2 91, pCO2 of 36 and a pH 7.46. Sodium 141, potassium 3.8, chloride 111, CO2 25, anion gap 5. BUN and creatinine 29 and 1.04, calcium 8.6. Microbiology is currently all negative. Chest x-ray from today shows evidence of a mildly improved aeration of both lungs. There are small bilateral effusions. MEDICATIONS: Reviewed. Currently, the patient is on Tylenol, amlodipine, aspirin, Coreg, chlorhexidine, Cleviprex p.r.n., Zetia, gabapentin subcu heparin, Dilaudid p.r.n., insulin p.r.n., DuoNeb q.4 around the clock, lactated Ringer's, Keppra, lisinopril, Ativan p.r.n., magnesium replacement, morphine sulfate, Narcan, Protonix, potassium replacement, and Effient. ASSESSMENT: 1. Status post [id number] cardiopulmonary arrest of 10 minutes of resuscitation with eventual return of spontaneous circulation in a patient with a predominant ventricular fibrillation/PEA arrest. 2. Status post mechanical ventilation with insertion of a pediatric tracheostomy tube to the prior tracheostomy stoma, for hypoxemic respiratory failure, beginning on March 19. 3. PEG tube placement and tracheal revision surgery, done by Dr. Amador. 4. Status post PEG tube placement, March 26, postop day #1. 5. Possible aspiration pneumonia. 6. Acute systolic congestive heart failure. 7. Ischemic cardiomyopathy. 8. History of vocal cord paralysis and previous tracheostomy. 9. History of chronic obstructive pulmonary disease. 10.History of coronary artery disease with previous cardiac intervention and stenting of the LAD, with subsequent cardiac arrest. 11.Benign essential hypertension. 12.Diabetic peripheral neuropathy. 13.Severe anoxic brain injury, with possible underlying seizure activity. PLAN: The patient will hopefully have a tracheal revision today. PEG tube was placed yesterday. The patient continues off all sedation. She gets Dilaudid p.r.n. We add some amlodipine to her Coreg and lisinopril for better blood pressure control. Art line and central line were removed. PICC line was placed. The patient is being ready for long-term acute care. Prognosis is very poor. Critical care time: 33 minutes. [place] / CARMENN: [id number] /
--- NOTE | 2020-03-27 14:15 | P.PN ---
Subjective Progress Note Date: 03/27/20 CHIEF COMPLAINT: Status post PEG tube placement HISTORY OF PRESENT ILLNESS: The patient is a 64-year-old female status post PEG tube placement for protein malnutrition She is postoperative day 1. ROS: No reports of nausea and vomiting. No bowel movements. No fevers or chills. No new chest pain. No productive sputum PHYSICAL EXAM: VITAL SIGNS: Reviewed CONSTITUTIONAL: Well developed and in no acute distress. EYES: Conjuctivae without sclera icterus. Extraocular movements grossly intact. HEAD, EARS, NOSE, THROAT: Moist buccal mucosa. Head is atraumatic, normocephalic. No nasal drainage. NECK: Supple. No thyroidomegaly. Trach intact. RESPIRATORY: Non-labored respirations and equal bilateral excursions. CARDIOVASCULAR: Palpable 2+ radial pulses. ABDOMEN: G-tube intact. Protuberant and soft. No peritonitis. MUSCULOSKELETAL: No gross deformity of the lower extremities noted. No clubbing. No cyanosis. SKIN: Good skin turgor. Well perfused. NEUROLOGIC: Cranial nerves II through XII grossly intact. No focal or lateralizing signs. PSYCH: Appropriate affect. Alert and oriented to person, place and time. CLINICAL LABS: White blood cell count normal, 10.3. Hemoglobin is stable between 10.4-10.1. ASSESSMENT: 1. Protein malnutrition status post PEG tube placement PLAN: 1. Tube feedings per dietitian goal 2. May start tube feeds tomorrow Objective - Vital Signs Vital signs: Vital Signs Temp 100.2 F H 03/27/20 08:00 Pulse 85 03/27/20 09:00 Resp 28 H 03/27/20 09:00 BP 164/77 03/27/20 09:00 Pulse Ox 99 03/27/20 09:00 Intake & Output 03/26/20 03/27/20 03/27/20 18:59 06:59 18:59 Intake Total 597.584 184.6 60 Output Total 780 785 200 Balance -182.416 -600.4 -140 Weight 102.2 kg 99.3 kg Intake: IV 580 180 60 Dextrose 5% in Water 1, 480 120 000 ml @ 40 mls/hr IV . Q24H [facility] Rx#:[id number] Lactated Ringers 1,000 ml 60 60 @ 20 mls/hr IV .Q24H [facility] Rx#:[id number] Intake, IV Titration 17.584 4.6 Amount Clevidipine Butyrate 25 17.584 4.6 mg In Empty Bag 1 bag @ 1 MG/HR 2 mls/hr IV .Q24H [facility] Rx#:[id number] Output: Urine 780 785 200 Estimated Blood Loss 0 Other: Voiding Method Indwelling Catheter Indwelling Catheter Indwelling Catheter ABP, PAP, CO, CI - Last Documented Arterial Blood Pressure 136/50 - Labs CBC & Chem 7: 03/27/20 04:40 03/27/20 04:40 Labs: Abnormal Lab Results - Last 24 Hours (Table) 03/26/20 03/26/20 03/26/20 Range/Units 12:11 17:00 20:41 RBC (3.80-5.40) m/uL Hgb (11.4-16.0) gm/dL Hct (34.0-46.0) % MCHC (31.0-37.0) g/dL Neutrophils # (1.3-7.7) k/uL ABG pH (7.35-7.45) ABG Total CO2 (19-24) mmol/L ABG O2 Saturation (94-97) % Chloride (98-107) mmol/L BUN (7-17) mg/dL Glucose (74-99) mg/dL POC Glucose (mg/dL) 117 H 166 H 134 H (75-99) mg/dL 03/27/20 03/27/20 03/27/20 Range/Units 00:00 03:45 04:23 RBC (3.80-5.40) m/uL Hgb (11.4-16.0) gm/dL Hct (34.0-46.0) % MCHC (31.0-37.0) g/dL Neutrophils # (1.3-7.7) k/uL ABG pH 7.46 H (7.35-7.45) ABG Total CO2 26 H (19-24) mmol/L ABG O2 Saturation 98.5 H (94-97) % Chloride (98-107) mmol/L BUN (7-17) mg/dL Glucose (74-99) mg/dL POC Glucose (mg/dL) 138 H 140 H (75-99) mg/dL 03/27/20 03/27/20 03/27/20 Range/Units 04:40 04:40 08:27 RBC 3.70 L (3.80-5.40) m/uL Hgb 10.1 L (11.4-16.0) gm/dL Hct 32.9 L (34.0-46.0) % MCHC 30.7 L (31.0-37.0) g/dL Neutrophils # 8.3 H (1.3-7.7) k/uL ABG pH (7.35-7.45) ABG Total CO2 (19-24) mmol/L ABG O2 Saturation (94-97) % Chloride 111 H (98-107) mmol/L BUN 29 H (7-17) mg/dL Glucose 140 H (74-99) mg/dL POC Glucose (mg/dL) 153 H (75-99) mg/dL Microbiology - Last 24 Hours (Table) 03/24/20 00:55 Gram Stain - Final Sputum Sputum Culture - Final
--- NOTE | 2020-03-27 14:57 | P.PN ---
Subjective Status post cardio pulmonary arrest and the patient to have presently has a tracheostomy and PEG tube at this time patient will be initiated on PEG tube feeding with feedings today. Patient is off duplex at this time patient is presently on amlodipine. Patient is awaiting disposition to family wanted to continue medical treatment although patient significant anoxic brain injury patient has significant edema because of which a tracheostomy revision was not done. Patient had low-grade fevers I'll obtain a septic workup with the blood cultures chest x-ray in the and urine cultures. Tracheostomy site and PEG site is clean at this time doesn't appear to be infected at this time. Patient is also on KEPPRA PER NEUROLOGY Review of systems: Unable to obtain due to her clinical condition All inpatient medications were reviewed and appropriate changes in these medications as dictated in the interval history and assessment and plan. Objective - Vital Signs Vital signs: Vital Signs Temp 99.1 F 03/27/20 12:00 Pulse 80 03/27/20 14:00 Resp 24 03/27/20 14:00 BP 124/65 03/27/20 14:00 Pulse Ox 98 03/27/20 14:00 Intake & Output 03/26/20 03/27/20 03/27/20 18:59 06:59 18:59 Intake Total 597.584 184.6 160 Output Total 780 785 875 Balance -182.416 -600.4 -715 Weight 102.2 kg 99.3 kg Intake: IV 580 180 160 Dextrose 5% in Water 1, 480 120 000 ml @ 40 mls/hr IV . Q24H [facility] Rx#:[id number] Lactated Ringers 1,000 ml 60 160 @ 20 mls/hr IV .Q24H [facility] Rx#:[id number] Intake, IV Titration 17.584 4.6 Amount Clevidipine Butyrate 25 17.584 4.6 mg In Empty Bag 1 bag @ 1 MG/HR 2 mls/hr IV .Q24H [facility] Rx#:[id number] Output: Urine 780 785 875 Estimated Blood Loss 0 Other: Voiding Method Indwelling Catheter Indwelling Catheter Indwelling Catheter ABP, PAP, CO, CI - Last Documented Arterial Blood Pressure 136/50 - Exam PHYSICAL EXAMINATION: GENERAL: She has a tracheostomy and PEG tube in place is barely responsive HEENT: No scleral icterus. No conjunctival pallor. CARDIOVASCULAR: S1 and S2 present. No murmurs, rubs, or gallops. PULMONARY: Chest is clear to auscultation, no wheezing or crackles. ABDOMEN: Soft, nontender, nondistended, normoactive bowel sounds. No palpable organomegaly. MUSCULOSKELETAL: No joint swelling or deformity. EXTREMITIES: No cyanosis, clubbing, or pedal edema. NEUROLOGICAL: Unable to assess please refer to neurology documentation corneal reflexes present gag reflex is present SKIN: No rashes. - Labs CBC & Chem 7: 03/27/20 04:40 03/27/20 04:40 Labs: Abnormal Lab Results - Last 24 Hours (Table) 03/26/20 03/26/20 03/27/20 Range/Units 17:00 20:41 00:00 RBC (3.80-5.40) m/uL Hgb (11.4-16.0) gm/dL Hct (34.0-46.0) % MCHC (31.0-37.0) g/dL Neutrophils # (1.3-7.7) k/uL ABG pH (7.35-7.45) ABG Total CO2 (19-24) mmol/L ABG O2 Saturation (94-97) % Chloride (98-107) mmol/L BUN (7-17) mg/dL Glucose (74-99) mg/dL POC Glucose (mg/dL) 166 H 134 H 138 H (75-99) mg/dL 03/27/20 03/27/20 03/27/20 Range/Units 03:45 04:23 04:40 RBC 3.70 L (3.80-5.40) m/uL Hgb 10.1 L (11.4-16.0) gm/dL Hct 32.9 L (34.0-46.0) % MCHC 30.7 L (31.0-37.0) g/dL Neutrophils # 8.3 H (1.3-7.7) k/uL ABG pH 7.46 H (7.35-7.45) ABG Total CO2 26 H (19-24) mmol/L ABG O2 Saturation 98.5 H (94-97) % Chloride (98-107) mmol/L BUN (7-17) mg/dL Glucose (74-99) mg/dL POC Glucose (mg/dL) 140 H (75-99) mg/dL 03/27/20 03/27/20 03/27/20 Range/Units 04:40 08:27 12:11 RBC (3.80-5.40) m/uL Hgb (11.4-16.0) gm/dL Hct (34.0-46.0) % MCHC (31.0-37.0) g/dL Neutrophils # (1.3-7.7) k/uL ABG pH (7.35-7.45) ABG Total CO2 (19-24) mmol/L ABG O2 Saturation (94-97) % Chloride 111 H (98-107) mmol/L BUN 29 H (7-17) mg/dL Glucose 140 H (74-99) mg/dL POC Glucose (mg/dL) 153 H 132 H (75-99) mg/dL Assessment and Plan Plan: -Cardiac arrest with underlying rhythm of ventricle fibrillation, with downtime of 10 minutes cardioverted, 1 dose of epinephrine patient presently has a tracheostomy significant anoxic brain injury. Patient remains on the ventilator to support via tracheostomy and presently has a PEG tube will be initiated on PEG tube feedings -Acute hypoxic respiratory failure, requiring ventilator support. -Acute on chronic congestive heart failure exacerbation from systolic dysfunction EF 25% -Lactic acidosis most likely type II. Cannot rule out infectious process. -Possible aspiration pneumonia -Acute COPD exacerbation in an ex-smoker, exposed to secondhand smoking-slow to respond -Possible tracheal stenosis following intubation -History of cardiac arrest following stenting to LAD -Coronary artery disease with stent to LAD -Diabetes mellitus 2 uncontrolled elevated blood sugars, patient is presently on 8 units of Levemir -Essential hypertension -Hyperlipidemia -Diabetic peripheral neuropathy -Left vocal cord paralysis from intubation -Obesity BMI 33.9 -Consider anoxic brain injury. / encephalopathy.-Slow to respond. Patient remains off sedatives. On IV Keppra. -Secondary pulmonary hypertension -PEG tube placed today March [address] Amador
--- NOTE | 2020-03-27 15:11 | XR ---
EXAMINATION TYPE: XR chest 1V DATE OF EXAM: 03/27/2020 COMPARISON: Today HISTORY: Chest pain TECHNIQUE: FINDINGS: There is tracheostomy tube. There is some mild atelectasis or infiltrate left lung base. Th ere is no gross heart failure. There is right-sided central venous catheter with tip in the superior vena cava. IMPRESSION: There is some mild linear infiltrate and atelectasis behind the heart in the left lower l obe that is improved compared to exam this morning. There is clearing of the pulmonary congestion com pared to exam this morning.
[2020-03-27 15:16] LABS: Glucose,Whole Blood 143 mg/dL (75-99)
[2020-03-27] MEDS: PRASUGREL 10 MG TAB PO SCH (15:18)
[2020-03-27] MEDS: ASPIRIN 81 MG PO SCH (15:18)
[2020-03-27] MEDS: HEPARIN SODIUM,PORCINE 5,000 UNIT/ML 1 ML VIAL SQ SCH ×2 (15:18→15:28)
--- NOTE | 2020-03-27 15:43 | P.PN ---
Progress Note - Text Progress Note Date: 03/27/20 EEG showed no epileptifrom activity. Background improved. Will decrease Keppra to 500 mg bid. Avoid sedative, hypnotics or narcotics.
--- NOTE | 2020-03-27 15:45 | EEG ---
ELECTROENCEPHALOGRAM REPORT DATE OF SERVICE: 03/27/2020. PREAMBLE: This is a 64-year-old female with history of cardiac arrest. Patient has recent worsening of her mentation with some trembling. This study is performed to rule out any epileptiform activity. EEG FINDINGS: This is a 21 channel portable EEG recording in a patient utilizing 10/20 international bipolar montages. Background consists of moderately well-developed and regulated mixed frequencies of 4-6 Hz generalized theta activity. Background is not clearly posterior dominant and does not seem to be reactive to passive eye opening or closing. Photic driving response was not seen. After activation by sternal rep, the background did improve with appearance of 6-7 Hz generalized theta activity mixed with some low- voltage theta and delta activity. No focal or generalized epileptiform activity was seen. IMPRESSION: This is an abnormal EEG due to background slowing of moderate degree. This is suggestive of generalized cerebral dysfunction as can be seen with toxic metabolic encephalopathy or due to diffuse structural brain abnormality. When compared to the EEG from 03/23/2020, the background has significantly improved, although still generalized slow. No epileptiform activity was seen. MMODL / IJN: [id number] / [facility]
[2020-03-27 16:07] LABS: Appearance,Urine Clear (Clear); Bilirubin,Urine Negative (Negative); Blood,Urine Small (Negative); Budding Yeast,Urine Rare /hpf; Color,Urine Yellow; Glucose,Urine (UA) Trace (Negative); Ketones,Urine 2+ (Negative); Leukocyte Esterase,Urine Moderate (Negative); Mucus,Urine Rare /hpf; Nitrite,Urine Negative (Negative); PH, Urine 5.5 (5.0-8.0); Protein,Urine 1+ (Negative); RBC,Urine 25 /hpf (0-5); Specific Gravity,Urine 1.017 (1.001-1.035); Squamous Epithelial Cell,Urine <1 /hpf (0-4); Urobilinogen,Urine <2.0 mg/dL (<2.0); WBC,Urine 39 /hpf (0-5)
[2020-03-27 19:55] LABS: Glucose,Whole Blood 122 mg/dL (75-99)
[2020-03-27] MEDS: levETIRAcetam IV 500 MG in SODIUM CHLORIDE 0.9% 100 ML IVPB SCH (20:33)
[2020-03-27] MEDS ORDERED: INSULIN DETEMIR (LEVEMIR) 100 UNIT/ML SYR SQ SCH (21:00)
[2020-03-28 00:34] LABS: Glucose,Whole Blood 85 mg/dL (75-99)
[2020-03-28] MEDS: INSULIN ASPART (NovoLOG) 100 UNIT/ML VIAL SQ SCH ×7 (02:24→23:39)
[2020-03-28] MEDS: HEPARIN SODIUM,PORCINE 5,000 UNIT/ML 1 ML VIAL SQ SCH ×4 (02:27→23:42)
[2020-03-28] MEDS: IPRATROPIUM-ALBUTEROL 3 ML NEB INHALATION SCH ×6 (03:29→23:11)
[2020-03-28 04:10] LABS: Glucose,Whole Blood 63 mg/dL (75-99)
[2020-03-28] MEDS: DEXTROSE 50% SYRINGE 50 ML IVP ONE ×2 (04:21→11:34)
[2020-03-28 04:38] LABS: Glucose,Whole Blood 178 mg/dL (75-99)
[2020-03-28 05:02] LABS: ABG Base Excess 2.7 mmol/L; ABG HCO3 27 mmol/L (21-25); ABG Oxygen Saturation 97.3 % (94-97); ABG PCO2 38 mmHg (35-45); ABG PH 7.45 (7.35-7.45); ABG PO2 80 mmHg (83-108); ABG TCO2 28 mmol/L (19-24); Allen Test Performed? Yes
[2020-03-28] MEDS: LACTATED RINGERS 1,000 ML IV SCH (05:06)
[2020-03-28 06:19] LABS: Basophils # (A) 0.1 k/uL (0-0.2); Basophils % (A) 1 %; Eosinophils # (A) 0.2 k/uL (0-0.7); Eosinophils % (A) 2 %; HCT 31.4 % (34.0-46.0); HGB 10.2 gm/dL (11.4-16.0); Lymphocytes # (A) 0.8 k/uL (1.0-4.8); Lymphocytes % (A) 8 %; MCHC 32.7 g/dL (31.0-37.0); MCV 88.7 fL (80.0-100.0); Mean Platelet Volume 8.7; Monocytes # (A) 0.6 k/uL (0-1.0); Monocytes % (A) 5 %; Neutrophils # (A) 8.6 k/uL (1.3-7.7); Neutrophils % (A) 84 %; Platelet Count 194 k/uL (150-450); RBC 3.53 m/uL (3.80-5.40); RDW 13.7 % (11.5-15.5); WBC 10.3 k/uL (3.8-10.6)
[2020-03-28 06:27] LABS: Calcium 8.6 mg/dL (8.4-10.2); Potassium 3.8 mmol/L (3.5-5.1)
[2020-03-28] MEDS ORDERED: Potassium Replacement Protocol 1 EACH MISC MISCELLANE PRN (06:46)
[2020-03-28] MEDS ORDERED: POTASSIUM BICARBONATE/CIT AC 20 MEQ TABLET.EFF NG-TUBE SCH (07:00)
[2020-03-28] MEDS: carvediloL 6.25 MG TAB PO SCH (07:14)
--- NOTE | 2020-03-28 07:18 | XR ---
EXAMINATION TYPE: XR chest 1V portable DATE OF EXAM: 03/28/2020 CLINICAL HISTORY: Difficulty breathing progress study. Rule out pneumonia. TECHNIQUE: Single AP portable semiupright view of the chest is obtained. COMPARISON: Chest x-ray from one day earlier and older studies. FINDINGS: Tracheostomy tube a right-sided PICC line redemonstrated. There is chronic parenchymal change and persistent bibasilar opacities. Worsening findings right lung base noted from one day earlier. The cardiac silhouette size is stable and mildly enlarged with ath erosclerotic aorta. The osseous structures are intact. IMPRESSION: Chronic changes with bibasilar acute infiltrate and/or atelectasis, increased findings r ight lung base noted from one day earlier.
[2020-03-28 07:54] LABS: Glucose,Whole Blood 77 mg/dL (75-99)
[2020-03-28] MEDS: CHLORHEXIDINE GLUCONATE 15 ML CUP MUCOUS MEM SCH ×2 (07:54→21:21)
[2020-03-28] MEDS: amLODIPine 10 MG TAB PO SCH (07:54)
[2020-03-28] MEDS: ACETAMINOPHEN TAB 325 MG TAB PO PRN ×2 (07:54→16:01)
[2020-03-28] MEDS: levETIRAcetam IV 500 MG in SODIUM CHLORIDE 0.9% 100 ML IVPB SCH ×2 (07:54→21:21)
[2020-03-28] MEDS: GABAPENTIN 300 MG CAP PO SCH ×3 (07:54→21:21)
[2020-03-28] MEDS: PRASUGREL 10 MG TAB PO SCH (07:54)
[2020-03-28] MEDS: ASPIRIN 81 MG PO SCH (07:55)
[2020-03-28] MEDS: EZETIMIBE 10 MG TAB PO SCH (07:55)
[2020-03-28] MEDS: PANTOPRAZOLE 40 MG/10 ML VIAL IVP SCH (07:55)
[2020-03-28] MEDS: lisinopriL 10 MG TAB PO SCH (08:10)
--- NOTE | 2020-03-28 10:50 | PN ---
PROGRESS NOTE PULMONARY/CRITICAL CARE PROGRESS NOTE: DATE OF SERVICE: 03/28/2020 Critical care time is 33 minutes. This is a 64-year-old female status post [id number] cardiopulmonary arrest with about 10 minutes of resuscitation before there was return of spontaneous circulation. The patient was primarily in ventricular fibrillation arrest along with pulseless electrical activity. The patient had a previous tracheostomy and had a chronic but small stoma. On the scene, EMS did insert a small pediatric tracheostomy tube. The patient did have a PEG tube placed a day ago, on Sunday, but did not have a revision of her preop prior tracheostomy. Anyway, we think that should be done before she is transferred to a long-term acute care. The patient likely suffered significant anoxic brain injury. She has been off sedatives for more than a week without any significant neurologic recovery. We have talked to the daughter multiple times about code status. The daughter still wants everything done at this point. She remains on the volume assist-control mode rate of 24, tidal volume 350, FiO2 of 35%, PEEP of 5. Blood gases show pO2 of 80, pCO2 of 38, pH 7.45. She is getting lactated Ringer's at 20 mL an hour. Tube feeds will be started today. Currently, we have been having issues with blood pressure. She is on lisinopril 10 mg a day, Coreg which has been increased to 12.5 mg twice a day, and we added amlodipine 10 mg. She has been off the Cleviprex. PHYSICAL EXAMINATION: VITAL SIGNS: Current vital signs are reviewed. Temperature 99.8, heart rate 76, respiratory rate 26, blood pressure 156/74, mean 101 and saturations are 97%. Appears in no acute distress. HEENT: Examination is grossly unremarkable. Mucous membranes are moist. No oral lesions. NECK: Supple, full range of motion. There is a midline tracheostomy tube. No adenopathy or thyromegaly. Neck veins are flat. CARDIOVASCULAR: Examination reveals regular rhythm and rate. Heart rate 76. S1, S2 normal. No S3, S4, or murmur. Heart rate 76. LUNGS: A few scattered coarse rhonchi. No wheezes or crackles. Breath sounds equal. ABDOMEN: Soft. Bowel sounds are heard. There is a PEG tube in place. EXTREMITIES are intact. There is mild edema. No cyanosis or clubbing. SKIN: Without rash. NEUROLOGIC: Examination is unchanged. She is not responsive to verbal or painful stimuli. The neurologic examination has been documented on previous dictations. LABORATORY DATA: Reviewed. White count 10.3, hemoglobin 10.2, hematocrit 31.4, platelet count 194,000, PO2 80, pCO2 of 38, pH 7.45. Sodium and potassium normal. Chloride 110, CO2 is 27, anion gap 4. BUN and creatinine were 22 and 0.94. Microbiology is all negative. Chest x-ray is reviewed. There is some bibasilar atelectasis. CURRENT MEDICATIONS: Reviewed. She is currently on Tylenol, amlodipine, aspirin, Coreg, chlorhexidine, Cleviprex p.r.n., Zetia, gabapentin, subcu heparin, Dilaudid p.r.n., insulin p.r.n., DuoNeb, Keppra, lisinopril, Ativan p.r.n., magnesium replacement, morphine sulfate p.r.n., Narcan, Protonix, potassium replacement, and Effient. ASSESSMENT: 1. Status post [id number] cardiopulmonary arrest, with about 10 minutes of resuscitation, and eventual return of spontaneous circulation in a patient with a predominant ventricular fibrillation/PEA arrest. 2. Status post mechanical ventilation with insertion of a pediatric tracheostomy tube into the patient's prior tracheostomy stoma for hypoxemic respiratory failure, beginning on March 19. 3. Status post PEG tube placement, postop day #2. 4. Severe anoxic brain injury with possible underlying seizure activity. 5. Possible aspiration pneumonia. 6. Acute systolic congestive heart failure. 7. Ischemic cardiomyopathy. 8. History of vocal cord paralysis and previous tracheostomy. 9. History of chronic obstructive pulmonary disease. 10.Prior history of coronary artery disease with prior cardiac intervention and stenting of LAD, and subsequent cardiac arrest. 11.Benign essential hypertension. 12.Diabetic peripheral neuropathy. PLAN: The patient has severe anoxic brain injury. Her neurologic status has not changed at all. Appreciate input from Neurology. She did have a PEG tube placed on Sunday, and hopefully she will have her tracheal revisions on tomorrow. She has been evaluated or should be evaluated by [facility] or some other long-term acute care facility. Additional recommendations and suggestions are forthcoming. Prognosis is very poor. Art line and central line removed. PICC line was placed. We are attempting better blood pressure control with the addition of amlodipine, higher doses of lisinopril and increasing the dose of Coreg. Critical care time 33 minutes. MMFEDERICAL / IJN: [id number] /
[2020-03-28 11:32] LABS: Glucose,Whole Blood 45 mg/dL (75-99)
[2020-03-28 11:45] LABS: Glucose,Whole Blood 171 mg/dL (75-99)
--- NOTE | 2020-03-28 15:44 | P.PN ---
Subjective Status post cardio pulmonary arrest and the patient to have presently has a tracheostomy and PEG tube at this time patient will be initiated on PEG tube feeding with feedings today. Patient is off duplex at this time patient is presently on amlodipine. Patient is awaiting disposition to family wanted to continue medical treatment although patient significant anoxic brain injury patient has significant edema because of which a tracheostomy revision was not done. Patient had low-grade fevers I'll obtain a septic workup with the blood cultures chest x-ray in the and urine cultures. Tracheostomy site and PEG site is clean at this time doesn't appear to be infected at this time. Patient is also on KEPPRA PER NEUROLOGY 03/28/2020 No cigarette in change in her clinical condition. Patient denied history of low-grade fevers years little bit abnormal and still don't have any clear source of infection counseling her high risk for infection patient will be started on Zosyn awaiting blood and urine cultures. Review of systems: Unable to obtain due to her clinical condition All inpatient medications were reviewed and appropriate changes in these medications as dictated in the interval history and assessment and plan. Objective - Vital Signs Vital signs: Vital Signs Temp 99.2 F 03/28/20 12:00 Pulse 83 03/28/20 15:30 Resp 29 H 03/28/20 15:00 BP 122/89 03/28/20 15:00 Pulse Ox 99 03/28/20 15:00 Intake & Output 03/27/20 03/28/20 03/28/20 18:59 06:59 18:59 Intake Total 260 320 240 Output Total 1425 745 550 Balance -1165 -425 -310 Weight 99.2 kg Intake: IV 260 220 180 Lactated Ringers 1,000 ml 260 220 180 @ 20 mls/hr IV .Q24H [facility] Rx#:[id number] Intake, IV Titration 100 Amount levETIRAcetam IV 500 mg 100 In Sodium Chloride 0.9% 100 ml @ 400 mls/hr IVPB Q12HR [facility] Rx#:[id number] Tube Feeding 30 Other 30 Output: Urine 1425 745 550 Other: Voiding Method Indwelling Catheter Indwelling Catheter Indwelling Catheter ABP, PAP, CO, CI - Last Documented Arterial Blood Pressure 136/50 - Exam PHYSICAL EXAMINATION: GENERAL: She has a tracheostomy and PEG tube in place is barely responsive HEENT: No scleral icterus. No conjunctival pallor. CARDIOVASCULAR: S1 and S2 present. No murmurs, rubs, or gallops. PULMONARY: Chest is clear to auscultation, no wheezing or crackles. ABDOMEN: Soft, nontender, nondistended, normoactive bowel sounds. No palpable organomegaly. MUSCULOSKELETAL: No joint swelling or deformity. EXTREMITIES: No cyanosis, clubbing, or pedal edema. NEUROLOGICAL: Unable to assess please refer to neurology documentation corneal reflexes present gag reflex is present SKIN: No rashes. - Labs CBC & Chem 7: 03/28/20 04:47 03/28/20 04:47 Labs: Abnormal Lab Results - Last 24 Hours (Table) 03/27/20 03/27/20 03/28/20 Range/Units 15:25 19:53 04:07 RBC (3.80-5.40) m/uL Hgb (11.4-16.0) gm/dL Hct (34.0-46.0) % Neutrophils # (1.3-7.7) k/uL Lymphocytes # (1.0-4.8) k/uL ABG pO2 (83-108) mmHg ABG HCO3 (21-25) mmol/L ABG Total CO2 (19-24) mmol/L ABG O2 Saturation (94-97) % Chloride (98-107) mmol/L BUN (7-17) mg/dL Glucose (74-99) mg/dL POC Glucose (mg/dL) 122 H 63 L (75-99) mg/dL Urine Protein 1+ H (Negative) Urine Glucose (UA) Trace H (Negative) Urine Ketones 2+ H (Negative) Urine Blood Small H (Negative) Ur Leukocyte Esterase Moderate H (Negative) Urine RBC 25 H (0-5) /hpf Urine WBC 39 H (0-5) /hpf Urine Mucus Rare H (None) /hpf Urine Yeast (Budding) Rare H (None) /hpf 03/28/20 03/28/20 03/28/20 Range/Units 04:37 04:47 04:47 RBC 3.53 L (3.80-5.40) m/uL Hgb 10.2 L (11.4-16.0) gm/dL Hct 31.4 L (34.0-46.0) % Neutrophils # 8.6 H (1.3-7.7) k/uL Lymphocytes # 0.8 L (1.0-4.8) k/uL ABG pO2 (83-108) mmHg ABG HCO3 (21-25) mmol/L ABG Total CO2 (19-24) mmol/L ABG O2 Saturation (94-97) % Chloride 110 H (98-107) mmol/L BUN 22 H (7-17) mg/dL Glucose 150 H (74-99) mg/dL POC Glucose (mg/dL) 178 H (75-99) mg/dL Urine Protein (Negative) Urine Glucose (UA) (Negative) Urine Ketones (Negative) Urine Blood (Negative) Ur Leukocyte Esterase (Negative) Urine RBC (0-5) /hpf Urine WBC (0-5) /hpf Urine Mucus (None) /hpf Urine Yeast (Budding) (None) /hpf 03/28/20 03/28/20 03/28/20 Range/Units 04:57 11:29 11:43 RBC (3.80-5.40) m/uL Hgb (11.4-16.0) gm/dL Hct (34.0-46.0) % Neutrophils # (1.3-7.7) k/uL Lymphocytes # (1.0-4.8) k/uL ABG pO2 80 L (83-108) mmHg ABG HCO3 27 H (21-25) mmol/L ABG Total CO2 28 H (19-24) mmol/L ABG O2 Saturation 97.3 H (94-97) % Chloride (98-107) mmol/L BUN (7-17) mg/dL Glucose (74-99) mg/dL POC Glucose (mg/dL) 45 L 171 H (75-99) mg/dL Urine Protein (Negative) Urine Glucose (UA) (Negative) Urine Ketones (Negative) Urine Blood (Negative) Ur Leukocyte Esterase (Negative) Urine RBC (0-5) /hpf Urine WBC (0-5) /hpf Urine Mucus (None) /hpf Urine Yeast (Budding) (None) /hpf Microbiology - Last 24 Hours (Table) 03/27/20 15:25 Urine Culture - Preliminary Urine,Clean Catch Assessment and Plan Plan: -Cardiac arrest with underlying rhythm of ventricle fibrillation, with downtime of 10 minutes cardioverted, 1 dose of epinephrine patient presently has a tracheostomy significant anoxic brain injury. Patient remains on the ventilator to support via tracheostomy and presently has a PEG tube will be initiated on PEG tube feedings -persistent fevers patient was started on empiric antibiotics awaiting cultures -Acute hypoxic respiratory failure, requiring ventilator support. -Acute on chronic congestive heart failure exacerbation from systolic dysfunction EF 25% -Lactic acidosis most likely type II. Cannot rule out infectious process. -Possible aspiration pneumonia -Acute COPD exacerbation in an ex-smoker, exposed to secondhand smoking-slow to respond -Possible tracheal stenosis following intubation -History of cardiac arrest following stenting to LAD -Coronary artery disease with stent to LAD -Diabetes mellitus 2 uncontrolled elevated blood sugars, patient is presently on 8 units of Levemir -Essential hypertension -Hyperlipidemia -Diabetic peripheral neuropathy -Left vocal cord paralysis from intubation -Obesity BMI 33.9 -Consider anoxic brain injury. / encephalopathy.-Slow to respond. Patient remains off sedatives. On IV Keppra. -Secondary pulmonary hypertension -PEG tube placed today March [address] Amador
[2020-03-28 15:49] LABS: Glucose,Whole Blood 74 mg/dL (75-99)
--- NOTE | 2020-03-28 15:49 | P.PN ---
Subjective Progress Note Date: 03/28/20 CHIEF COMPLAINT: Status post PEG tube placement HISTORY OF PRESENT ILLNESS: The patient is a 64-year-old female status post PEG tube placement for protein malnutrition She is postoperative day 2. Tube feeds at 10 mL/hr. Her vent settings have been steady for the last 2 days. ROS: No fevers or chills. No new chest pain. PHYSICAL EXAM: VITAL SIGNS: Reviewed CONSTITUTIONAL: Well developed and in no acute distress. EYES: Conjuctivae without sclera icterus. Extraocular movements grossly intact. HEAD, EARS, NOSE, THROAT: Moist buccal mucosa. Head is atraumatic, normocephalic. No nasal drainage. NECK: Trach intact. RESPIRATORY: Non-labored respirations and equal bilateral excursions. CARDIOVASCULAR: Palpable 2+ radial pulses. ABDOMEN: G-tube intact. MUSCULOSKELETAL: No gross deformity of the lower extremities noted. No clubbing. No cyanosis. Has PRAFO boots SKIN: Good skin turgor. Well perfused. NEUROLOGIC: Cranial nerves II through XII grossly intact. No focal or la teralizing signs. PSYCH: Appropriate affect. Alert and oriented to person, place and time. CLINICAL LABS: White blood cell count normal, 10.3. Hemoglobin is stable 10.2. ASSESSMENT: 1. Protein malnutrition status post PEG tube placement PLAN: 1. Continue tube feeds to goal 2. Attempt of trach revision once edema improves. Objective - Vital Signs Vital signs: Vital Signs Temp 99.2 F 03/28/20 12:00 Pulse 83 03/28/20 15:30 Resp 29 H 03/28/20 15:00 BP 122/89 03/28/20 15:00 Pulse Ox 99 03/28/20 15:00 Intake & Output 03/27/20 03/28/20 03/28/20 18:59 06:59 18:59 Intake Total 260 320 240 Output Total 1425 745 550 Balance -1165 -425 -310 Weight 99.2 kg Intake: IV 260 220 180 Lactated Ringers 1,000 ml 260 220 180 @ 20 mls/hr IV .Q24H [facility] Rx#:[id number] Intake, IV Titration 100 Amount levETIRAcetam IV 500 mg 100 In Sodium Chloride 0.9% 100 ml @ 400 mls/hr IVPB Q12HR [facility] Rx#:[id number] Tube Feeding 30 Other 30 Output: Urine 1425 745 550 Other: Voiding Method Indwelling Catheter Indwelling Catheter Indwelling Catheter ABP, PAP, CO, CI - Last Documented Arterial Blood Pressure 136/50 - Labs CBC & Chem 7: 03/28/20 04:47 03/28/20 04:47 Labs: Abnormal Lab Results - Last 24 Hours (Table) 03/27/20 03/27/20 03/28/20 Range/Units 15:25 19:53 04:07 RBC (3.80-5.40) m/uL Hgb (11.4-16.0) gm/dL Hct (34.0-46.0) % Neutrophils # (1.3-7.7) k/uL Lymphocytes # (1.0-4.8) k/uL ABG pO2 (83-108) mmHg ABG HCO3 (21-25) mmol/L ABG Total CO2 (19-24) mmol/L ABG O2 Saturation (94-97) % Chloride (98-107) mmol/L BUN (7-17) mg/dL Glucose (74-99) mg/dL POC Glucose (mg/dL) 122 H 63 L (75-99) mg/dL Urine Protein 1+ H (Negative) Urine Glucose (UA) Trace H (Negative) Urine Ketones 2+ H (Negative) Urine Blood Small H (Negative) Ur Leukocyte Esterase Moderate H (Negative) Urine RBC 25 H (0-5) /hpf Urine WBC 39 H (0-5) /hpf Urine Mucus Rare H (None) /hpf Urine Yeast (Budding) Rare H (None) /hpf 03/28/20 03/28/20 03/28/20 Range/Units 04:37 04:47 04:47 RBC 3.53 L (3.80-5.40) m/uL Hgb 10.2 L (11.4-16.0) gm/dL Hct 31.4 L (34.0-46.0) % Neutrophils # 8.6 H (1.3-7.7) k/uL Lymphocytes # 0.8 L (1.0-4.8) k/uL ABG pO2 (83-108) mmHg ABG HCO3 (21-25) mmol/L ABG Total CO2 (19-24) mmol/L ABG O2 Saturation (94-97) % Chloride 110 H (98-107) mmol/L BUN 22 H (7-17) mg/dL Glucose 150 H (74-99) mg/dL POC Glucose (mg/dL) 178 H (75-99) mg/dL Urine Protein (Negative) Urine Glucose (UA) (Negative) Urine Ketones (Negative) Urine Blood (Negative) Ur Leukocyte Esterase (Negative) Urine RBC (0-5) /hpf Urine WBC (0-5) /hpf Urine Mucus (None) /hpf Urine Yeast (Budding) (None) /hpf 03/28/20 03/28/20 03/28/20 Range/Units 04:57 11:29 11:43 RBC (3.80-5.40) m/uL Hgb (11.4-16.0) gm/dL Hct (34.0-46.0) % Neutrophils # (1.3-7.7) k/uL Lymphocytes # (1.0-4.8) k/uL ABG pO2 80 L (83-108) mmHg ABG HCO3 27 H (21-25) mmol/L ABG Total CO2 28 H (19-24) mmol/L ABG O2 Saturation 97.3 H (94-97) % Chloride (98-107) mmol/L BUN (7-17) mg/dL Glucose (74-99) mg/dL POC Glucose (mg/dL) 45 L 171 H (75-99) mg/dL Urine Protein (Negative) Urine Glucose (UA) (Negative) Urine Ketones (Negative) Urine Blood (Negative) Ur Leukocyte Esterase (Negative) Urine RBC (0-5) /hpf Urine WBC (0-5) /hpf Urine Mucus (None) /hpf Urine Yeast (Budding) (None) /hpf Microbiology - Last 24 Hours (Table) 03/27/20 15:25 Urine Culture - Preliminary Urine,Clean Catch Assessment and Plan (1) Inadequate dietary intake of protein Current Visit: Yes Status: Acute Code(s): E63.9 - NUTRITIONAL DEFICIENCY, UNSPECIFIED SNOMED Code(s): 388033545 (2) Endotracheally intubated Current Visit: Yes Status: Acute Code(s): Z97.8 - PRESENCE OF OTHER SPECIFIED DEVICES SNOMED Code(s): 404836308
[2020-03-28] MEDS ORDERED: DEXTROSE 5% IN WATER 1,000 ML IV ONE (15:56)
[2020-03-28] MEDS: carvediloL 12.5 MG TAB PO SCH (16:01)
[2020-03-28] MEDS: PIPERACILLIN-TAZOBACTAM 3.375 GM in SODIUM CHLORIDE 0.9% 100 ML IVPB SCH ×2 (16:02→23:41)
[2020-03-28 21:19] LABS: Glucose,Whole Blood 107 mg/dL (75-99)
[2020-03-28 23:40] LABS: Glucose,Whole Blood 101 mg/dL (75-99)
[2020-03-29] MEDS: HYDROmorphone 1 MG/ML 1 ML SYRINGE IVP PRN ×3 (00:57→22:47)
[2020-03-29] MEDS: IPRATROPIUM-ALBUTEROL 3 ML NEB INHALATION SCH ×6 (03:14→23:00)
[2020-03-29 04:14] LABS: Glucose,Whole Blood 123 mg/dL (75-99)
[2020-03-29] MEDS: INSULIN ASPART (NovoLOG) 100 UNIT/ML VIAL SQ SCH ×5 (04:14→20:09)
[2020-03-29 04:31] LABS: Basophils % (A) 0 %; Eosinophils # (A) 0.2 k/uL (0-0.7); Eosinophils % (A) 2 %; HCT 32.8 % (34.0-46.0); HGB 10.2 gm/dL (11.4-16.0); Hypochromasia Slight; Lymphocytes # (A) 1.2 k/uL (1.0-4.8); Lymphocytes % (A) 13 %; MCH 27.5 pg (25.0-35.0); MCV 88.8 fL (80.0-100.0); Mean Platelet Volume 8.5; Monocytes # (A) 0.5 k/uL (0-1.0); Monocytes % (A) 5 %; Neutrophils # (A) 7.5 k/uL (1.3-7.7); Neutrophils % (A) 79 %; Platelet Count 209 k/uL (150-450); RBC 3.69 m/uL (3.80-5.40); WBC 9.5 k/uL (3.8-10.6)
[2020-03-29 04:32] LABS: Calcium 8.6 mg/dL (8.4-10.2); Potassium 4.1 mmol/L (3.5-5.1)
[2020-03-29 05:17] LABS: ABG Base Excess 2.2 mmol/L; ABG HCO3 26 mmol/L (21-25); ABG Oxygen Saturation 96.5 % (94-97); ABG PCO2 39 mmHg (35-45); ABG PH 7.44 (7.35-7.45); ABG PO2 74 mmHg (83-108); ABG TCO2 28 mmol/L (19-24); Allen Test Performed? Yes
[2020-03-29] MEDS ORDERED: DEXTROSE 5% IN WATER 1,000 ML IV SCH (05:30)
[2020-03-29 06:08] LABS: Glucose,Whole Blood 139 mg/dL (75-99)
[2020-03-29] MEDS: carvediloL 12.5 MG TAB PO SCH ×2 (06:58→16:59)
--- NOTE | 2020-03-29 09:02 | XR ---
EXAMINATION TYPE: XR chest 1V portable DATE OF EXAM: 03/29/2020 COMPARISON: Prior chest x-ray 03/28/2020 HISTORY: Assess lungs, difficulty breathing, abnormal chest x-ray TECHNIQUE: Single frontal view of the chest is obtained. FINDINGS: Tracheostomy tube is overlying appropriate position. Right-sided PICC line is again noted, distal tip not well seen. No evident pneumothorax. There is overlying artifact, leads. Heart is stab le. Aorta is dense. Patchy basilar density persists. IMPRESSION: Basilar atelectasis, correlate to exclude pneumonia.
[2020-03-29] MEDS: PIPERACILLIN-TAZOBACTAM 3.375 GM in SODIUM CHLORIDE 0.9% 100 ML IVPB SCH ×2 (09:17→16:16)
[2020-03-29] MEDS: levETIRAcetam IV 500 MG in SODIUM CHLORIDE 0.9% 100 ML IVPB SCH ×2 (09:17→20:09)
[2020-03-29] MEDS: PANTOPRAZOLE 40 MG/10 ML VIAL IVP SCH (09:20)
[2020-03-29 09:21] LABS: Glucose,Whole Blood 176 mg/dL (75-99)
[2020-03-29] MEDS: CHLORHEXIDINE GLUCONATE 15 ML CUP MUCOUS MEM SCH ×2 (09:21→20:09)
[2020-03-29] MEDS: amLODIPine 10 MG TAB PO SCH (09:21)
[2020-03-29] MEDS: lisinopriL 10 MG TAB PO SCH (09:22)
[2020-03-29] MEDS: GABAPENTIN 300 MG CAP PO SCH ×3 (09:22→20:09)
[2020-03-29] MEDS: EZETIMIBE 10 MG TAB PO SCH (09:22)
[2020-03-29] MEDS ORDERED: PROPOFOL 10 MG/ML 20 ML VIAL IV ONE (09:59)
[2020-03-29] MEDS ORDERED: GLYCOPYRROLATE 0.2 MG/ML 2 ML VIAL ONE (09:59)
[2020-03-29] MEDS ORDERED: MIDAZOLAM 2 MG/2 ML VIAL ONE (09:59)
[2020-03-29] MEDS ORDERED: SODIUM CHLORIDE 0.9% 500 ML 500 ML IV ONE (10:16)
[2020-03-29 11:45] LABS: Glucose,Whole Blood 163 mg/dL (75-99)
--- NOTE | 2020-03-29 12:01 | P.PN ---
Subjective Progress Note Date: 03/29/20 A 4-year-old male patient with known history of coronary artery disease and previous cardiac arrest that goes back in October 2018. At that time the patient had an elective cardiac catheterization and the patient was found to have mild LAD lesion. During the procedure, the patient went into a cardiac arrest and angioplasty was performed. However, the patient developed profound hypotension and went into a PEA rhythm. At that time the patient had a cardiac arrest for a total of 60 minutes in the [facility]. During that time, the patient had a stent to the LAD and the patient was resuscitated and Levaquin prescription assisted device was inserted and the patient was eventually transferred to the intensive care unit. The patient prolonged course of intubation mechanical ventilation and ultimately the patient was discharged on 10/17/2019. At that time, the patient is systolic heart failure with an ejection fraction of 35%. The patient also known to have COPD and possibly a left cord paralysis as the patient had intermittent episodes of stridor. The patient was again seen as an inpatient on 03/23/2019 at that time he was having shortness of breath and stridor and eventually the patient a tracheostomy tube placed. His tracheostomy was done on 05/14/2019 at [facility]. The patient was brought him back to the hospital on 03/20/2020 for another episode of cardiopulmonary arrest. Apparently the patient was found to be unresponsive and the scene and the patient collapsed and she was pulseless. She was in ventricular fibrillation. She was given epinephrine and she was shocked/defibrillator. CPR was numb for a total of 5 minutes and following that there was a spontaneous return of circulation. The patient was brought into the hospital unresponsive. CAT scan of the brain was negative. Comorbidities include diabetes mellitus, hypertension, hyperlipidemia, coronary artery disease, diabetes mellitus related peripheral neuropathy and as mentioned previous history of cardiac arrest that occurred in October 2018. During this current admission, the patient had insertion of a PEG tube. She remains on a mechanical ventilator. . The patient has anoxic encephalopathy with the latest EEG that was done on 03/27/2020 showing abnormal EEG with moderate slowing in generalized cerebral dysfunction without any seizure. The echocardiogram was done on 03/22/2020 showed improvement in function with an ejection fraction of 60-65% and there was no valvular abnormalities noted. The patient had a picc line in the RUE. The patient is covered with IV Zosyn for possible aspiration pneumonia. The patient is currently on D5 water. The patient is on Cleviprex 1 mg an hour from BP control. The patient remains on a mechanical ventilator. The patient has a #[address] tube in place. This morning the patient is on assist control mode at the rate of 24 with a tidal volume of 650 and FiO2 of 35% with a PEEP of 5. The blood gases from this morning showed a pH of 7.44 with a pCO2 of 39 and pO2 of 74 and the chest x-ray shows some limited atelectatic changes in lung bases and the tracheostomy tube was in a good location. The patient is on D5 water infusion at the rate of 75 mL an hour and sodium level is improving is down to 138. The patient was taken to the operating room by general surgery. An attempt was done to revise a tracheostomy tube and it failed. The patient was not able to get intubated by anesthesia as there was significant narrowing a nd the intubation process failed even with a smaller bronchoscope. Based on that, the procedure got canceled. The patient remains off sedation. The patient is withdrawing only to deep painful stimulation. She will occasionally get emesis. She does not follow any commands. No purposeful movement at this point in time. Objective - Vital Signs Vital signs: Vital Signs Temp 98.7 F 03/29/20 04:00 Pulse 68 03/29/20 07:32 Resp 30 H 03/29/20 07:00 BP 156/78 03/29/20 07:00 Pulse Ox 96 03/29/20 07:00 Intake & Output 03/28/20 03/29/20 03/29/20 18:59 06:59 18:59 Intake Total 520 1140 95 Output Total 760 335 Balance -240 805 95 Weight 100 kg Intake: IV 315 1140 95 0.9% Na 100 20 Dextrose 5% in Water 1, 75 900 75 000 ml @ 75 mls/hr IV . [id number] Rx#:[id number] Lactated Ringers 1,000 ml 240 40 @ 20 mls/hr IV .Q24H [facility] Rx#:[id number] Piperacillin-Tazobactam 3 100 .375 gm In Sodium Chloride 0.9% 100 ml @ 25 mls/hr IVPB Q8HR [facility] Rx# :[id number] Intake, IV Titration 75 Amount Piperacillin-Tazobactam 3 75 .375 gm In Sodium Chloride 0.9% 100 ml @ 25 mls/hr IVPB Q8HR [facility] Rx# :[id number] Tube Feeding 70 Other 60 Output: Urine 760 335 Other: Voiding Method Indwelling Catheter Indwelling Catheter ABP, PAP, CO, CI - Last Documented Arterial Blood Pressure 136/50 - Exam Gen. appearance the patient is calm and comfortable, responsive, currently off sedation Head exam was generally normal. There was no scleral icterus or corneal arcus. Mucous membranes were moist. Neck was supple and without jugular venous distension, thyromegaly, or carotid bruits. Carotids were easily palpable bilaterally. There was no adenopathy.the patient is a tracheostomy tube in place and the patient has a #4 [address]iley tracheostomy tube in place. Cardiac exam revealed the PMI to be normally situated and sized. The rhythm was regular and no extrasystoles were noted during several minutes of auscultation. The first and second heart sounds were normal and physiologic splitting of the second heart sound was noted. There were no murmurs, rubs, clicks, or gallops. Lungs sounds are diminished and the patient is some few scattered rhonchi and somewhat coarse. No wheezes or crackles. Breath sounds are equal and symmetrical at this point in time. Abdominal exam revealed normal bowel sounds. The abdomen was soft, non-tender, and without masses, organomegaly, or appreciable enlargement of the abdominal aorta.. The patient has a PEG tube in place and the patient is a colostomy Examination of the extremities revealed easily palpable radial, femoral and pedal pulses. There was no cyanosis, clubbing or edema. Examination of the skin revealed no evidence of significant rashes, suspicious appearing nevi or other concerning lesions. Neurologically the patient is nonverbal and the patient is not responsive to any verbal or painful stimulation. Neurologic exam is essentially unchanged compared to yesterday. Motor and sensory function cannot be assessed. The patient may grimace and do some slight withdrawing to deep painful stimulation to her upper extremity. Otherwise, she doesn't following commands. No nystagmus. No preferential gaze. - Labs CBC & Chem 7: 03/29/20 03:19 03/29/20 03:19 Labs: Abnormal Lab Results - Last 24 Hours (Table) 03/28/20 03/28/20 03/28/20 Range/Units 11:29 11:43 15:47 RBC (3.80-5.40) m/uL Hgb (11.4-16.0) gm/dL Hct (34.0-46.0) % ABG pO2 (83-108) mmHg ABG HCO3 (21-25) mmol/L ABG Total CO2 (19-24) mmol/L Chloride (98-107) mmol/L BUN (7-17) mg/dL Glucose (74-99) mg/dL POC Glucose (mg/dL) 45 L 171 H 74 L (75-99) mg/dL 03/28/20 03/28/20 03/29/20 Range/Units 21:17 23:38 03:19 RBC 3.69 L (3.80-5.40) m/uL Hgb 10.2 L (11.4-16.0) gm/dL Hct 32.8 L (34.0-46.0) % ABG pO2 (83-108) mmHg ABG HCO3 (21-25) mmol/L ABG Total CO2 (19-24) mmol/L Chloride (98-107) mmol/L BUN (7-17) mg/dL Glucose (74-99) mg/dL POC Glucose (mg/dL) 107 H 101 H (75-99) mg/dL 03/29/20 03/29/20 03/29/20 Range/Units 03:19 04:12 05:12 RBC (3.80-5.40) m/uL Hgb (11.4-16.0) gm/dL Hct (34.0-46.0) % ABG pO2 74 L (83-108) mmHg ABG HCO3 26 H (21-25) mmol/L ABG Total CO2 28 H (19-24) mmol/L Chloride 109 H (98-107) mmol/L BUN 21 H (7-17) mg/dL Glucose 116 H (74-99) mg/dL POC Glucose (mg/dL) 123 H (75-99) mg/dL 03/29/20 Range/Units 06:07 RBC (3.80-5.40) m/uL Hgb (11.4-16.0) gm/dL Hct (34.0-46.0) % ABG pO2 (83-108) mmHg ABG HCO3 (21-25) mmol/L ABG Total CO2 (19-24) mmol/L Chloride (98-107) mmol/L BUN (7-17) mg/dL Glucose (74-99) mg/dL POC Glucose (mg/dL) 139 H (75-99) mg/dL Microbiology - Last 24 Hours (Table) 03/27/20 15:25 Urine Culture - Final Urine,Clean Catch 03/27/20 14:49 Blood Culture - Preliminary Blood No Growth after 24 hours Assessment and Plan Plan: 1 History of [id number] cardiac pulmonary arrest secondary to ventricular fibrillation/PEA rhythm. The patient is on them of at least 10 minutes she can return of ventilation. I suspect that the patient probably had a respiratory arrest related to a complication of her airways as the patient was found to have significant narrowing in her upper airway to the point where the patient had failed a revision of a tracheostomy tube insertion today. It's likely that the patient and the respiratory arrest followed by a cardiac arrest. 2 anoxic encephalopathy secondary to above, the patient continues to be deeply encephalopathic, unresponsive to any verbal stimulation, may withdrawal or grimace to deep painful stimulation on today's evaluation. Consider the possibility of a severe subglottic stenosis probably related to previous tracheostomy tube insertion and probably related to previous intubation. The patient is also suspected to have a vocal cord paralysis. Currently the patient has a #4 tracheostomy tube insertion that was placed at a time of her cardiac arrest. 3 chronic respiratory failure, hypoxic in nature and the patient has a tracheostomy tube in place, and the patient has a number for [place] tracheostomy tube in place 4 PEG tube for enteral feeding and nutritional support, postop day #3 5 possible aspiration pneumonia currently on IV Zosyn 6 history of ischemic cardiomyopathy with a recent echocardiogram showed improvement in LV function with normalization of the LV 7 history of previous tracheostomy tube insertion, inserted for stridor and respiratory difficulty, requiring insertion and removal of tracheostomy tube. 8 COPD 9 coronary artery disease with previous stenting of the LAD 1o previous history of cardiac arrest from 2008 11 Hypertension and the patient is on Cleviprex addition to lisinopril and Coreg 12 diabetic peripheral neuropathy 13 hypernatremia, improved Plan Switch the fluids to normal saline at the rate of 75 mL an hour Monitor sodium level Monitor BP and urine output Continue enteral feeding for nutritional support through the PEG tube The revision of the tracheostomy tube was aborted because of failure of achieving adequate airway and intubation during the procedure. I was told by anesthesia that the patient had failed also bronchoscopic intubation. I would like to discuss the details of the anesthesiologist and the general surgeon. Meanwhile, the patient is adequately ventilating square #4 shunt tracheostomy tube and this will be kept. Discontinue the Cleviprex and control the blood pressure with a combination of Coreg and lisinopril Continue IV Zosyn for possible aspiration pneumonia Repeat chest x-ray was noted We'll continue to follow, make further recommendations based on and progress. This evaluation was done more than 30 minutes. We are thinking of moving this patient to [facility]. Full CODE STATUS per family. Time with Patient: Greater than 30
[2020-03-29 12:48] LABS: Glucose,Whole Blood 154 mg/dL (75-99)
[2020-03-29] MEDS: HEPARIN SODIUM,PORCINE 5,000 UNIT/ML 1 ML VIAL SQ SCH ×2 (12:50→16:15)
[2020-03-29] MEDS: PRASUGREL 10 MG TAB PO SCH (12:50)
[2020-03-29] MEDS: ASPIRIN 81 MG PO SCH (12:50)
[2020-03-29] MEDS: SODIUM CHLORIDE 0.9% 1,000 ML IV SCH (12:52)
--- NOTE | 2020-03-29 13:08 | P.PN ---
Subjective Status post cardio pulmonary arrest and the patient to have presently has a tracheostomy and PEG tube at this time patient will be initiated on PEG tube feeding with feedings today. Patient is off duplex at this time patient is presently on amlodipine. Patient is awaiting disposition to family wanted to continue medical treatment although patient significant anoxic brain injury patient has significant edema because of which a tracheostomy revision was not done. Patient had low-grade fevers I'll obtain a septic workup with the blood cultures chest x-ray in the and urine cultures. Tracheostomy site and PEG site is clean at this time doesn't appear to be infected at this time. Patient is also on KEPPRA PER NEUROLOGY 03/28/2020 No cigarette in change in her clinical condition. Patient denied history of low-grade fevers years little bit abnormal and still don't have any clear source of infection counseling her high risk for infection patient will be started on Zosyn awaiting blood and urine cultures. 03/29/2020 Patient's fevers resolved chest x-ray showing atelectasis although pneumonia cannot be ruled out continue Zosyn at this time. Because of significant edema in the neck area there were unable to replace the tracheostomy. Review of systems: Unable to obtain due to her clinical condition All inpatient medications were reviewed and appropriate changes in these medications as dictated in the interval history and assessment and plan. Objective - Vital Signs Vital signs: Vital Signs Temp 98.1 F 03/29/20 12:00 Pulse 61 03/29/20 12:00 Resp 24 03/29/20 12:00 BP 129/70 03/29/20 12:00 Pulse Ox 95 03/29/20 12:00 Intake & Output 03/28/20 03/29/20 03/29/20 18:59 06:59 18:59 Intake Total 520 1140 810 Output Total 760 335 85 Balance -240 805 725 Weight 100 kg 100 kg Intake: IV 315 1140 670 0.9% Na 100 120 Dextrose 5% in Water 1, 75 900 450 000 ml @ 75 mls/hr IV . [id number] [facility] Rx#:[id number] Lactated Ringers 1,000 ml 240 40 @ 20 mls/hr IV .Q24H [facility] Rx#:[id number] Piperacillin-Tazobactam 3 100 .375 gm In Sodium Chloride 0.9% 100 ml @ 25 mls/hr IVPB Q8HR [facility] Rx# :[id number] Intake, IV Titration 75 100 Amount Piperacillin-Tazobactam 3 75 .375 gm In Sodium Chloride 0.9% 100 ml @ 25 mls/hr IVPB Q8HR [facility] Rx# :[id number] levETIRAcetam IV 500 mg 100 In Sodium Chloride 0.9% 100 ml @ 400 mls/hr IVPB Q12HR [facility] Rx#:[id number] Tube Feeding 70 40 Other 60 Output: Urine 760 335 85 Other: Voiding Method Indwelling Catheter Indwelling Catheter ABP, PAP, CO, CI - Last Documented Arterial Blood Pressure 136/50 - Exam PHYSICAL EXAMINATION: GENERAL: She has a tracheostomy and PEG tube in place today patient does have the pupillary reflexes does open the eyes does have brainstem reflexes HEENT: No scleral icterus. No conjunctival pallor. CARDIOVASCULAR: S1 and S2 present. No murmurs, rubs, or gallops. PULMONARY: Chest is clear to auscultation, no wheezing or crackles. ABDOMEN: Soft, nontender, nondistended, normoactive bowel sounds. No palpable organomegaly. MUSCULOSKELETAL: No joint swelling or deformity. EXTREMITIES: No cyanosis, clubbing, or pedal edema. NEUROLOGICAL: Unable to assess please refer to neurology documentation corneal reflexes present gag reflex is present SKIN: No rashes. - Labs CBC & Chem 7: 03/29/20 03:19 03/29/20 03:19 Labs: Abnormal Lab Results - Last 24 Hours (Table) 03/28/20 03/28/20 03/28/20 Range/Units 15:47 21:17 23:38 RBC (3.80-5.40) m/uL Hgb (11.4-16.0) gm/dL Hct (34.0-46.0) % ABG pO2 (83-108) mmHg ABG HCO3 (21-25) mmol/L ABG Total CO2 (19-24) mmol/L Chloride (98-107) mmol/L BUN (7-17) mg/dL Glucose (74-99) mg/dL POC Glucose (mg/dL) 74 L 107 H 101 H (75-99) mg/dL 03/29/20 03/29/20 03/29/20 Range/Units 03:19 03:19 04:12 RBC 3.69 L (3.80-5.40) m/uL Hgb 10.2 L (11.4-16.0) gm/dL Hct 32.8 L (34.0-46.0) % ABG pO2 (83-108) mmHg ABG HCO3 (21-25) mmol/L ABG Total CO2 (19-24) mmol/L Chloride 109 H (98-107) mmol/L BUN 21 H (7-17) mg/dL Glucose 116 H (74-99) mg/dL POC Glucose (mg/dL) 123 H (75-99) mg/dL 03/29/20 03/29/20 03/29/20 Range/Units 05:12 06:07 09:19 RBC (3.80-5.40) m/uL Hgb (11.4-16.0) gm/dL Hct (34.0-46.0) % ABG pO2 74 L (83-108) mmHg ABG HCO3 26 H (21-25) mmol/L ABG Total CO2 28 H (19-24) mmol/L Chloride (98-107) mmol/L BUN (7-17) mg/dL Glucose (74-99) mg/dL POC Glucose (mg/dL) 139 H 176 H (75-99) mg/dL 03/29/20 03/29/20 Range/Units 11:43 12:47 RBC (3.80-5.40) m/uL Hgb (11.4-16.0) gm/dL Hct (34.0-46.0) % ABG pO2 (83-108) mmHg ABG HCO3 (21-25) mmol/L ABG Total CO2 (19-24) mmol/L Chloride (98-107) mmol/L BUN (7-17) mg/dL Glucose (74-99) mg/dL POC Glucose (mg/dL) 163 H 154 H (75-99) mg/dL Microbiology - Last 24 Hours (Table) 03/27/20 15:25 Urine Culture - Final Urine,Clean Catch 03/27/20 14:49 Blood Culture - Preliminary Blood No Growth after 24 hours Assessment and Plan Plan: -Cardiac arrest with underlying rhythm of ventricle fibrillation, with downtime of 10 minutes cardioverted, 1 dose of epinephrine patient presently has a tracheostomy significant anoxic brain injury. Patient remains on the ventilator to support via tracheostomy and presently has a PEG tube will be initiated on PEG tube feedings -persistent fevers patient was started on empiric antibiotics awaiting cultures -Acute hypoxic respiratory failure, requiring ventilator support. -Acute on chronic congestive heart failure exacerbation from systolic dysfunction EF 25% -Lactic acidosis most likely type II. Cannot rule out infectious process. -Possible aspiration pneumonia -Acute COPD exacerbation in an ex-smoker, exposed to secondhand smoking-slow to respond -Possible tracheal stenosis following intubation -History of cardiac arrest following stenting to LAD -Coronary artery disease with stent to LAD -Diabetes mellitus 2 uncontrolled elevated blood sugars, patient is presently on 8 units of Levemir -Essential hypertension -Hyperlipidemia -Diabetic peripheral neuropathy -Left vocal cord paralysis from intubation -Obesity BMI 33.9 -Consider anoxic brain injury. / encephalopathy.-Slow to respond. Patient remains off sedatives. On IV Keppra. -Secondary pulmonary hypertension -PEG tube placed today March [address] Amador
[2020-03-29 16:13] LABS: Glucose,Whole Blood 137 mg/dL (75-99)
--- NOTE | 2020-03-29 19:02 | P.PN ---
Subjective Progress Note Date: 03/29/20 The patient the was seen at bedside and the per the nurse patient has not had any seizure-like activity. Per her shift or the public health nutritionist. Patient continues to be getting Dilaudid since that she gets tachycardic and the fights the events per the nurse. Last Ativan was on 03/26/2020. Objective - Vital Signs Vital signs: Vital Signs Temp 98.7 F 03/29/20 16:00 Pulse 86 03/29/20 17:00 Resp 30 H 03/29/20 17:00 BP 136/71 03/29/20 17:00 Pulse Ox 95 03/29/20 17:00 Intake & Output 03/28/20 03/29/20 03/29/20 18:59 06:59 18:59 Intake Total 520 1140 1545 Output Total 760 335 280 Balance -604 976 1520 Weight 100 kg 100 kg Intake: IV 315 1140 1225 0.9% Na 100 200 Dextrose 5% in Water 1, 75 900 825 000 ml @ 75 mls/hr IV . [id number] [facility] Rx#:[id number] Lactated Ringers 1,000 ml 240 40 @ 20 mls/hr IV .Q24H [facility] Rx#:[id number] Piperacillin-Tazobactam 3 100 100 .375 gm In Sodium Chloride 0.9% 100 ml @ 25 mls/hr IVPB Q8HR [facility] Rx# :[id number] Intake, IV Titration 75 100 Amount Piperacillin-Tazobactam 3 75 .375 gm In Sodium Chloride 0.9% 100 ml @ 25 mls/hr IVPB Q8HR [facility] Rx# :[id number] levETIRAcetam IV 500 mg 100 In Sodium Chloride 0.9% 100 ml @ 400 mls/hr IVPB Q12HR [facility] Rx#:[id number] Tube Feeding 70 190 Other 60 30 Output: Urine 760 335 280 Other: Voiding Method Indwelling Catheter Indwelling Catheter Indwelling Catheter ABP, PAP, CO, CI - Last Documented Arterial Blood Pressure 136/50 - Exam Respiratory: She is trach and on Vent. Clear to auscultation throughout Neurological exam: Limited because of her condition. Patient continues to be unresponsive. She'll open her eyes to painful stimuli. She is not verbally responsive or following commands. The pupils are round and 3mm bilaterally. The visual benítez are intact to threat bilaterally throughout. Positive corneal reflex bilaterally. There is no facial weakness appreciated bilaterally. Has intact gag reflex Motor: Gait is deferred. Strength could not be assessed because of patient condition. Sensation to painful stimuli seems intact. With painful stimuli. Upper or lower extremities she'll grimace her face. - Labs CBC & Chem 7: 03/29/20 03:19 03/29/20 03:19 Labs: Abnormal Lab Results - Last 24 Hours (Table) 03/28/20 03/28/20 03/29/20 Range/Units 21:17 23:38 03:19 RBC 3.69 L (3.80-5.40) m/uL Hgb 10.2 L (11.4-16.0) gm/dL Hct 32.8 L (34.0-46.0) % ABG pO2 (83-108) mmHg ABG HCO3 (21-25) mmol/L ABG Total CO2 (19-24) mmol/L Chloride (98-107) mmol/L BUN (7-17) mg/dL Glucose (74-99) mg/dL POC Glucose (mg/dL) 107 H 101 H (75-99) mg/dL 03/29/20 03/29/20 03/29/20 Range/Units 03:19 04:12 05:12 RBC (3.80-5.40) m/uL Hgb (11.4-16.0) gm/dL Hct (34.0-46.0) % ABG pO2 74 L (83-108) mmHg ABG HCO3 26 H (21-25) mmol/L ABG Total CO2 28 H (19-24) mmol/L Chloride 109 H (98-107) mmol/L BUN 21 H (7-17) mg/dL Glucose 116 H (74-99) mg/dL POC Glucose (mg/dL) 123 H (75-99) mg/dL 03/29/20 03/29/20 03/29/20 Range/Units 06:07 09:19 11:43 RBC (3.80-5.40) m/uL Hgb (11.4-16.0) gm/dL Hct (34.0-46.0) % ABG pO2 (83-108) mmHg ABG HCO3 (21-25) mmol/L ABG Total CO2 (19-24) mmol/L Chloride (98-107) mmol/L BUN (7-17) mg/dL Glucose (74-99) mg/dL POC Glucose (mg/dL) 139 H 176 H 163 H (75-99) mg/dL 03/29/20 03/29/20 Range/Units 12:47 16:11 RBC (3.80-5.40) m/uL Hgb (11.4-16.0) gm/dL Hct (34.0-46.0) % ABG pO2 (83-108) mmHg ABG HCO3 (21-25) mmol/L ABG Total CO2 (19-24) mmol/L Chloride (98-107) mmol/L BUN (7-17) mg/dL Glucose (74-99) mg/dL POC Glucose (mg/dL) 154 H 137 H (75-99) mg/dL Microbiology - Last 24 Hours (Table) 03/27/20 14:49 Blood Culture - Preliminary Blood No Growth after 48 hours 03/27/20 15:25 Urine Culture - Final Urine,Clean Catch Assessment and Plan Assessment: * 64-year-old female, who has tracheostomy since March 2019, had a witnessed respiratory arrest followed by cardiac arrest at home, with downtime of about 10 minutes, although patient's daughter stating <5 minutes. Patient is 6 days post cardiac arrest, now showing signs of clinical improvement. * Encephalopathy: Multifactorial (predominately due to cardiac arrest) and c omponent of toxic-metabolic encephalopathy from medication use (Dilaudid). * History of cardiac arrest in October 2018 during cardiac procedure. * History of vocal cord paralysis and previous tracheostomy. * COPD * Diabetes * Hypertension * Mild renal insufficiency. * X tobacco use Plan: * Recommend to avoid any the sedation or opioid as much as possible. * Repeat computed tomography scan of the head 03/24/2020, revealed no acute process, no cerebral edema or CVA. * Repeat EEG 03/23/2020 revealed diffuse slowing in moderate to high amplitude delta range, consistent with severe encephalopathy. No epileptiform activity was seen on this study. * Repeat EEG on 03/27/2020 showed no epileptiform activity. The background improved at. * Continue Keppra 500 mg twice a day (adjusted to her renal functions). * Continue Neurontin 300 mg 3 times a day based upon her renal functions. * As a result of the cardiac arrest the patient suffered brain injury. Patient does have intact brainstem reflexes but I think the patient will be dependent on others for assistance. We'll continue to follow Time with Patient: Less than 30
[2020-03-29 20:05] LABS: Glucose,Whole Blood 171 mg/dL (75-99)
[2020-03-30 00:05] LABS: Glucose,Whole Blood 142 mg/dL (75-99)
[2020-03-30] MEDS: CLEVIDIPINE BUTYRATE 25 MG in EMPTY BAG 1 BAG IV SCH ×2 (00:05→19:43)
[2020-03-30] MEDS: PIPERACILLIN-TAZOBACTAM 3.375 GM in SODIUM CHLORIDE 0.9% 100 ML IVPB SCH ×4 (00:08→23:55)
[2020-03-30] MEDS: HEPARIN SODIUM,PORCINE 5,000 UNIT/ML 1 ML VIAL SQ SCH ×4 (00:08→23:54)
[2020-03-30] MEDS: INSULIN ASPART (NovoLOG) 100 UNIT/ML VIAL SQ SCH ×7 (00:08→23:54)
[2020-03-30] MEDS: SODIUM CHLORIDE 0.9% 1,000 ML IV SCH ×2 (02:10→16:38)
[2020-03-30] MEDS: IPRATROPIUM-ALBUTEROL 3 ML NEB INHALATION SCH ×5 (03:07→19:32)
[2020-03-30 03:43] LABS: Basophils # (A) 0.1 k/uL (0-0.2); Basophils % (A) 1 %; Eosinophils # (A) 0.3 k/uL (0-0.7); Eosinophils % (A) 3 %; HCT 31.7 % (34.0-46.0); HGB 10.2 gm/dL (11.4-16.0); Lymphocytes % (A) 11 %; MCH 28.5 pg (25.0-35.0); MCHC 32.2 g/dL (31.0-37.0); MCV 88.5 fL (80.0-100.0); Mean Platelet Volume 8.8; Monocytes # (A) 0.4 k/uL (0-1.0); Monocytes % (A) 4 %; Neutrophils # (A) 7.3 k/uL (1.3-7.7); Neutrophils % (A) 80 %; Platelet Count 199 k/uL (150-450); RBC 3.58 m/uL (3.80-5.40); RDW 13.9 % (11.5-15.5); WBC 9.1 k/uL (3.8-10.6)
[2020-03-30 03:55] LABS: Calcium 8.6 mg/dL (8.4-10.2); Potassium 3.9 mmol/L (3.5-5.1)
[2020-03-30 04:08] LABS: Glucose,Whole Blood 197 mg/dL (75-99)
[2020-03-30] MEDS ORDERED: POTASSIUM BICARBONATE/CIT AC 20 MEQ TABLET.EFF NG-TUBE SCH (05:00)
[2020-03-30 05:13] LABS: ABG Base Excess 0.3 mmol/L; ABG HCO3 25 mmol/L (21-25); ABG Oxygen Saturation 96.8 % (94-97); ABG PCO2 36 mmHg (35-45); ABG PH 7.44 (7.35-7.45); ABG PO2 76 mmHg (83-108); ABG TCO2 26 mmol/L (19-24); Allen Test Performed? Yes
[2020-03-30] MEDS: carvediloL 12.5 MG TAB PO SCH ×2 (06:53→20:15)
[2020-03-30] MEDS: HYDROmorphone 1 MG/ML 1 ML SYRINGE IVP PRN ×2 (07:09→16:36)
[2020-03-30] MEDS: ASPIRIN 81 MG PO SCH (08:17)
[2020-03-30] MEDS: amLODIPine 10 MG TAB PO SCH (08:17)
[2020-03-30] MEDS: EZETIMIBE 10 MG TAB PO SCH (08:18)
[2020-03-30] MEDS: CHLORHEXIDINE GLUCONATE 15 ML CUP MUCOUS MEM SCH ×2 (08:18→20:15)
[2020-03-30] MEDS: GABAPENTIN 300 MG CAP PO SCH ×3 (08:18→20:15)
[2020-03-30] MEDS: PANTOPRAZOLE 40 MG/10 ML VIAL IVP SCH (08:18)
[2020-03-30] MEDS: lisinopriL 10 MG TAB PO SCH (08:18)
[2020-03-30] MEDS: PRASUGREL 10 MG TAB PO SCH (08:18)
[2020-03-30] MEDS: levETIRAcetam IV 500 MG in SODIUM CHLORIDE 0.9% 100 ML IVPB SCH ×2 (08:18→20:33)
[2020-03-30 08:23] LABS: Glucose,Whole Blood 164 mg/dL (75-99)
--- NOTE | 2020-03-30 11:08 | XR ---
EXAMINATION TYPE: XR chest 1V DATE OF EXAM: 03/30/2020 CLINICAL HISTORY: mechanical ventilation. TECHNIQUE: Portable semiupright view of the chest. COMPARISON: 03/29/2020 chest radiograph FINDINGS: Tracheostomy tube overlies the tracheal air column. Low lung volumes. Right PICC overlies the right atrium. There is mildly improved aeration of the bilateral lung bases versus 03/29/2020. He r systemic basilar airspace opacities and likely left pleural effusion. No pneumothorax. IMPRESSION: Mildly improved aeration of the bilateral lungs with persistent bibasilar airspace opaci ties. Possible small left pleural effusion.
[2020-03-30 11:52] LABS: Glucose,Whole Blood 199 mg/dL (75-99)
--- NOTE | 2020-03-30 12:10 | P.PN ---
Subjective Status post cardio pulmonary arrest and the patient to have presently has a tracheostomy and PEG tube at this time patient will be initiated on PEG tube feeding with feedings today. Patient is off duplex at this time patient is presently on amlodipine. Patient is awaiting disposition to family wanted to continue medical treatment although patient significant anoxic brain injury patient has significant edema because of which a tracheostomy revision was not done. Patient had low-grade fevers I'll obtain a septic workup with the blood cultures chest x-ray in the and urine cultures. Tracheostomy site and PEG site is clean at this time doesn't appear to be infected at this time. Patient is also on KEPPRA PER NEUROLOGY 03/28/2020 No cigarette in change in her clinical condition. Patient denied history of low-grade fevers years little bit abnormal and still don't have any clear source of infection counseling her high risk for infection patient will be started on Zosyn awaiting blood and urine cultures. 03/29/2020 Patient's fevers resolved chest x-ray showing atelectasis although pneumonia cannot be ruled out continue Zosyn at this time. Because of significant edema in the neck area there were unable to replace the tracheostomy. 03/30/2020 No cigarette in change in her neurological status still opens eyes to just has brainstem reflexes there is no significant improvement patient underwent bronchoscopy today as per pulmonology patient cannot be intubated. The patient remains afebrile and being treated for pneumonia most probably ventilator associated. Urine cultures are negative Review of systems: Unable to obtain due to her clinical condition All inpatient medications were reviewed and appropriate changes in these medications as dictated in the interval history and assessment and plan. Objective - Vital Signs Vital signs: Vital Signs Temp 98.5 F 03/30/20 08:00 Pulse 83 03/30/20 12:02 Resp 26 H 03/30/20 11:00 BP 129/65 03/30/20 11:00 Pulse Ox 96 03/30/20 11:00 Intake & Output 03/29/20 03/30/20 03/30/20 18:59 06:59 18:59 Intake Total 1530 1570 631 Output Total 315 460 210 Balance 1215 1110 421 Weight 100 kg 102.1 kg Intake: IV 1180 1100 465 0.9% Na 680 900 265 Dextrose 5% in Water 1, 300 000 ml @ 75 mls/hr IV . [id number] [facility] Rx#:[id number] Piperacillin-Tazobactam 3 100 100 100 .375 gm In Sodium Chloride 0.9% 100 ml @ 25 mls/hr IVPB Q8HR [facility] Rx# :[id number] levETIRAcetam IV 500 mg 100 100 In Sodium Chloride 0.9% 100 ml @ 400 mls/hr IVPB Q12HR [facility] Rx#:[id number] Intake, IV Titration 100 Amount levETIRAcetam IV 500 mg 100 In Sodium Chloride 0.9% 100 ml @ 400 mls/hr IVPB Q12HR [facility] Rx#:[id number] Tube Feeding 220 380 136 Other 30 90 30 Output: Urine 315 460 210 Other: Voiding Method Indwelling Catheter Indwelling Catheter Indwelling Catheter ABP, PAP, CO, CI - Last Documented Arterial Blood Pressure 136/50 - Exam PHYSICAL EXAMINATION: GENERAL: She has a tracheostomy and PEG tube in place today patient does have the pupillary reflexes does open the eyes does have brainstem reflexes HEENT: No scleral icterus. No conjunctival pallor. CARDIOVASCULAR: S1 and S2 present. No murmurs, rubs, or gallops. PULMONARY: Chest is clear to auscultation, no wheezing or crackles. ABDOMEN: Soft, nontender, nondistended, normoactive bowel sounds. No palpable organomegaly. MUSCULOSKELETAL: No joint swelling or deformity. EXTREMITIES: No cyanosis, clubbing, or pedal edema. NEUROLOGICAL: Unable to assess please refer to neurology documentation corneal reflexes present gag reflex is present SKIN: No rashes. - Labs CBC & Chem 7: 03/30/20 03:02 03/30/20 03:02 Labs: Abnormal Lab Results - Last 24 Hours (Table) 03/29/20 03/29/20 03/29/20 Range/Units 12:47 16:11 20:03 RBC (3.80-5.40) m/uL Hgb (11.4-16.0) gm/dL Hct (34.0-46.0) % ABG pO2 (83-108) mmHg ABG Total CO2 (19-24) mmol/L Sodium (137-145) mmol/L Chloride (98-107) mmol/L BUN (7-17) mg/dL Glucose (74-99) mg/dL POC Glucose (mg/dL) 154 H 137 H 171 H (75-99) mg/dL 03/30/20 03/30/20 03/30/20 Range/Units 00:04 03:02 03:02 RBC 3.58 L (3.80-5.40) m/uL Hgb 10.2 L (11.4-16.0) gm/dL Hct 31.7 L (34.0-46.0) % ABG pO2 (83-108) mmHg ABG Total CO2 (19-24) mmol/L Sodium 136 L (137-145) mmol/L Chloride 108 H (98-107) mmol/L BUN 19 H (7-17) mg/dL Glucose 181 H (74-99) mg/dL POC Glucose (mg/dL) 142 H (75-99) mg/dL 03/30/20 03/30/20 03/30/20 Range/Units 04:05 05:09 08:22 RBC (3.80-5.40) m/uL Hgb (11.4-16.0) gm/dL Hct (34.0-46.0) % ABG pO2 76 L (83-108) mmHg ABG Total CO2 26 H (19-24) mmol/L Sodium (137-145) mmol/L Chloride (98-107) mmol/L BUN (7-17) mg/dL Glucose (74-99) mg/dL POC Glucose (mg/dL) 197 H 164 H (75-99) mg/dL 03/30/20 Range/Units 11:51 RBC (3.80-5.40) m/uL Hgb (11.4-16.0) gm/dL Hct (34.0-46.0) % ABG pO2 (83-108) mmHg ABG Total CO2 (19-24) mmol/L Sodium (137-145) mmol/L Chloride (98-107) mmol/L BUN (7-17) mg/dL Glucose (74-99) mg/dL POC Glucose (mg/dL) 199 H (75-99) mg/dL Microbiology - Last 24 Hours (Table) 03/27/20 14:49 Blood Culture - Preliminary Blood No Growth after 48 hours Assessment and Plan Plan: -Cardiac arrest with underlying rhythm of ventricle fibrillation, with downtime of 10 minutes cardioverted, 1 dose of epinephrine patient presently has a tracheostomy significant anoxic brain injury. Patient remains on the ventilator to support via tracheostomy and presently has a PEG tube, patient is on PEG tube feedings -persistent fevers or patient probably has wondered associated pneumonia and patient is on Zosyn at this time -Acute hypoxic respiratory failure, requiring ventilator support. 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 -Essential hypertension -Hyperlipidemia -Diabetic peripheral neuropathy -Left vocal cord paralysis from intubation -Obesity BMI 33.9 -Consider anoxic brain injury. / encephalopathy.-Slow to respond. Patient remains off sedatives. On IV Keppra. -Secondary pulmonary hypertension -PEG tube placed today March [address] Amador Her overall prognosis is extremely poor the chance of her reasonable neurological recovery is extremely low.
--- NOTE | 2020-03-30 12:58 | P.PN ---
Subjective Progress Note Date: 03/30/20 64-year-old male patient with known history of coronary artery disease and previous cardiac arrest that goes back in October 2018. At that time the patient had an elective cardiac catheterization and the patient was found to have mild LAD lesion. During the procedure, the patient went into a cardiac arrest and angioplasty was performed. However, the patient developed profound hypotension and went into a PEA rhythm. At that time the patient had a cardiac arrest for a total of 60 minutes in the [facility]. During that time, the patient had a stent to the LAD and the patient was resuscitated and Levaquin prescription assisted device was inserted and the patient was eventually transferred to the intensive care unit. The patient prolonged course of intubation mechanical ventilation and ultimately the patient was discharged on 10/17/2019. At that time, the patient is systolic heart failure with an ejection fraction of 35%. The patient also known to have COPD and possibly a left cord paralysis as the patient had intermittent episodes of stridor. The patient was again seen as an inpatient on 03/23/2019 at that time he was having shortness of breath and stridor and eventually the patient a tracheostomy tube placed. His tracheostomy was done on 05/14/2019 at [facility]. The patient was brought him back to the hospital on 03/20/2020 for another episode of cardiopulmonary arrest. Apparently the patient was found to be unresponsive and the scene and the patient collapsed and she was pulseless. She was in ventricular fibrillation. She was given epinephrine and she was shocked/defibrillator. CPR was numb for a total of 5 minutes and following that there was a spontaneous return of circulation. The patient was brought into the hospital unresponsive. CAT scan of the brain was negative. Comorbidities include diabetes mellitus, hypertension, hyperlipidemia, coronary artery disease, diabetes mellitus related peripheral neuropathy and as mentioned previous history of cardiac arrest that occurred in October 2018. During this current admission, the patient had insertion of a PEG tube. She remains on a mechanical ventilator. . The patient has anoxic encephalopathy with the latest EEG that was done on 03/27/2020 showing abnormal EEG with moderate slowing in generalized cerebral dysfunction without any seizure. The echocardiogram was done on 03/22/2020 showed improvement in function with an ejection fraction of 60-65% and there was no valvular abnormalities noted. The patient had a picc line in the RUE. The patient is covered with IV Zosyn for possible aspiration pneumonia. The patient is currently on D5 water. The patient is on Cleviprex 1 mg an hour from BP control. The patient remains on a mechanical ventilator. The patient has a #[address]. This morning the patient is on assist control mode at the rate of 24 with a tidal volume of 650 and FiO2 of 35% with a PEEP of 5. The blood gases from this morning showed a pH of 7.44 with a pCO2 of 39 and pO2 of 74 and the chest x-ray shows some limited atelectatic changes in lung bases and the tracheostomy tube was in a good location. The patient is on D5 water infusion at the rate of 75 mL an hour and sodium level is improving is down to 138. The patient was taken to the operating room by general surgery. An attempt was done to revise a tracheostomy tube and it failed. The patient was not able to get intubated by anesthesia as there was significant narrowing and the intubation process failed even with a smaller bronchoscope. Based on that, the procedure got canceled. The patient remains off sedation. The patient is withdrawing only to deep painful stimulation. She will occasionally get emesis. She does not follow any commands. No purposeful movement at this point in time. On 03/30/2020, the patient is still off sedation, still encephalopathic and this is attributed to hypoxic encephalopathy. The patient earlier this morning was on a mechanical ventilator. I took her off the mechanical ventilator and I put the patient a trach collar and the patient did well without any major difficulties. She was placed on a 40% trach collar. She is able to cough and she is able to clear respiratory secretions. The patient does not have any major respiratory secretions. Earlier this morning, she wasn't an FiO2 of 35% with a PEEP of 5 and I was able to switch her and transition her to a trach collar. She is tolerating her enteral feeding for nutritional support. She is on limited stable. IV fluids are running at 75 mL an hour. No fever. No chills. No aspiration. Chest x-ray from today is showing adequate positioning of the tracheostomy tube and there is also some mild improved aeration on the bilateral lungs and there is some limited infiltration of the lung bases bilaterally. The patient is currently off the clevidipine drip and the blood pressures under better control at the patient is receiving a combination of Zestril and Coreg. The patient is continuing the course of antibiotics and IV Zosyn. IV fluids were running at 75 mL an hour and I cut it down to 20 mL an hour as maintenance. No other significant events. I also performed a bedside bronchoscopy on this patient in the upper airway inspection showed that the pat ient's cords were not fully functional. There was some mobility with abduction yet the extent of adduction was not enough for me to pass my bronchoscope past the vocal cords. There may be also some underlying subglottic stenosis which I was unable to visualize. 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 Currently the patient has a #4 [address] tube in [address]. Objective - Vital Signs Vital signs: Vital Signs Temp 98.5 F 03/30/20 08:00 Pulse 83 03/30/20 12:14 Resp 26 H 03/30/20 11:00 BP 129/65 03/30/20 11:00 Pulse Ox 96 03/30/20 11:00 Intake & Output 03/29/20 03/30/20 03/30/20 18:59 06:59 18:59 Intake Total 1530 1570 631 Output Total 315 460 210 Balance 1215 1110 421 Weight 100 kg 102.1 kg Intake: IV 1180 1100 465 0.9% Na 680 900 265 Dextrose 5% in Water 1, 300 000 ml @ 75 mls/hr IV . [id number] [facility] Rx#:[id number] Piperacillin-Tazobactam 3 100 100 100 .375 gm In Sodium Chloride 0.9% 100 ml @ 25 mls/hr IVPB Q8HR [facility] Rx# :[id number] levETIRAcetam IV 500 mg 100 100 In Sodium Chloride 0.9% 100 ml @ 400 mls/hr IVPB Q12HR [facility] Rx#:[id number] Intake, IV Titration 100 Amount levETIRAcetam IV 500 mg 100 In Sodium Chloride 0.9% 100 ml @ 400 mls/hr IVPB Q12HR [facility] Rx#:[id number] Tube Feeding 220 380 136 Other 30 90 30 Output: Urine 315 460 210 Other: Voiding Method Indwelling Catheter Indwelling Catheter Indwelling Catheter ABP, PAP, CO, CI - Last Documented Arterial Blood Pressure 136/50 - Exam Gen. appearance the patient is calm and comfortable, responsive, currently off sedation and currently the patient is off the mechanical ventilator on trach collar initially 40% and currently she is down to 35% trach collar. Head exam was generally normal. There was no scleral icterus or corneal arcus. Mucous membranes were moist. Neck was supple and without jugular venous distension, thyromegaly, or carotid bruits. Carotids were easily palpable bilaterally. There was no adenopathy.the patient is a tracheostomy tube in place and the patient has a #4 [address] trache[address] tube in place. Cardiac exam revealed the PMI to be normally situated and sized. The rhythm was regular and no extrasystoles were noted during several minutes of auscultation. The first and second heart sounds were normal and physiologic splitting of the second heart sound was noted. There were no murmurs, rubs, clicks, or gallops. Lungs sounds are diminished and the patient is some few scattered rhonchi and somewhat coarse. No wheezes or crackles. Breath sounds are equal and symmetrical at this point in time. Abdominal exam revealed normal bowel sounds. The abdomen was soft, non-tender, and without masses, organomegaly, or appreciable enlargement of the abdominal aorta.. The patient has a PEG tube in place and the patient is a colostomy Examination of the extremities revealed easily palpable radial, femoral and pedal pulses. There was no cyanosis, clubbing or edema. Examination of the skin revealed no evidence of significant rashes, suspicious appearing nevi or other concerning lesions. Neurologically the patient is nonverbal and the patient is not responsive to any verbal or painful stimulation. Neurologic exam is essentially unchanged compared to yesterday. Motor and sensory function cannot be assessed. The patient may grimace and do some slight withdrawing to deep painful stimulation to her upper extremity. Otherwise, she doesn't following commands. No nystagmus. No preferential gaze. - Labs CBC & Chem 7: 03/30/20 03:02 03/30/20 03:02 Labs: Abnormal Lab Results - Last 24 Hours (Table) 03/29/20 03/29/20 03/30/20 Range/Units 16:11 20:03 00:04 RBC (3.80-5.40) m/uL Hgb (11.4-16.0) gm/dL Hct (34.0-46.0) % ABG pO2 (83-108) mmHg ABG Total CO2 (19-24) mmol/L Sodium (137-145) mmol/L Chloride (98-107) mmol/L BUN (7-17) mg/dL Glucose (74-99) mg/dL POC Glucose (mg/dL) 137 H 171 H 142 H (75-99) mg/dL 03/30/20 03/30/20 03/30/20 Range/Units 03:02 03:02 04:05 RBC 3.58 L (3.80-5.40) m/uL Hgb 10.2 L (11.4-16.0) gm/dL Hct 31.7 L (34.0-46.0) % ABG pO2 (83-108) mmHg ABG Total CO2 (19-24) mmol/L Sodium 136 L (137-145) mmol/L Chloride 108 H (98-107) mmol/L BUN 19 H (7-17) mg/dL Glucose 181 H (74-99) mg/dL POC Glucose (mg/dL) 197 H (75-99) mg/dL 03/30/20 03/30/20 03/30/20 Range/Units 05:09 08:22 11:51 RBC (3.80-5.40) m/uL Hgb (11.4-16.0) gm/dL Hct (34.0-46.0) % ABG pO2 76 L (83-108) mmHg ABG Total CO2 26 H (19-24) mmol/L Sodium (137-145) mmol/L Chloride (98-107) mmol/L BUN (7-17) mg/dL Glucose (74-99) mg/dL POC Glucose (mg/dL) 164 H 199 H (75-99) mg/dL Microbiology - Last 24 Hours (Table) 03/27/20 14:49 Blood Culture - Preliminary Blood No Growth after 48 hours Assessment and Plan Plan: 1 History of [id number] cardiac pulmonary arrest secondary to ventricular fibrillation/PEA rhythm. The patient is on them of at least 10 minutes she can return of ventilation. I suspect that the patient probably had a respiratory arrest related to a complication of her airways as the patient was found to have significant narrowing in her upper airway to the point where the patient had failed a revision of a tracheostomy tube. I further did an upper airway inspection on this patient today and the patient did not have full mobility and adduction of the vocal cords and I was unable to pass the bronchoscope through the vocal cords and I also suspect a possibility of subglottic stenosis in addition to weakness/paralysis of the vocal cords. As such, I would suggest keeping the tracheostomy tube in place. 2 anoxic encephalopathy secondary to above, the patient continues to be deeply encephalopathic, unresponsive to any verbal stimulation, may withdrawal or grimace to deep painful stimulation on today's evaluation. 3 chronic respiratory failure, hypoxic in nature and the patient has a tracheostomy tube in place, and this is a #4 shotty tracheostomy tube. A bronchoscopy and upper airway inspection was done. Consider the possibility of a severe subglottic stenosis probably related to previous tracheostomy tube insertion and probably related to previous intubation. The patient is also suspected to have a vocal cord paralysis as the patient was not found to have complete ability to abduct the vocal cords.. Currently the patient has a #4 tracheostomy tube insertion that was placed at a time of her cardiac arrest. The patient was taken off the mechanical ventilator and the patient is currently on 835% tracheostomy collar. 4 PEG tube for enteral feeding and nutritional support, postop day #4 5 possible aspiration pneumonia currently on IV Zosyn 6 history of ischemic cardiomyopathy with a recent echocardiogram showed improvement in LV function with normalization of the LV 7 history of previous tracheostomy tube insertion, inserted for stridor and respiratory difficulty, requiring insertion and removal of tracheostomy tube. 8 COPD 9 coronary artery disease with previous stenting of the LAD 1o previous history of cardiac arrest from 2008 11 Hypertension and the blood pressure is under better control for now. 12 diabetic peripheral neuropathy 13 hypernatremia, improved, currently on normal saline infusion and the fluid rate will be cut down to KVO. Plan Plan cut down the IV fluids to 20 mL an hour Bronchoscopy and upper airway inspection was done. The patient will need a permanent tracheostomy tube. Continue enteral feeding for nutritional support through the PEG tube The revision of the tracheostomy tube was aborted because of failure of achieving adequate airway and intubation during the procedure. We'll keep the #4 tracheostomy [address] tube in place for now. Lower airway inspection through my flexible bronchoscope showed a daily tracheostomy tube was in a good location and the patient some looseness for secretions and the patient had some tracheal bronchomalacia. Continue IV Zosyn for possible aspiration pneumonia The patient continues to have severe encephalopathy related to hypoxic ence phalopathy. We'll continue the supportive care, including enteral feeding for nutritional support We'll continue to follow, make further recommendations based on and progress. This evaluation was done more than 30 minutes. We are thinking of moving this patient to select specialty. Full CODE STATUS per family. Time with Patient: Greater than 30
--- NOTE | 2020-03-30 13:38 | P.PN ---
Subjective Progress Note Date: 03/30/20 CHIEF COMPLAINT: Cardiopulmonary arrest HISTORY OF PRESENT ILLNESS: Patient is a remains in the ICU. She is status post PEG tube placement she is tolerating tube feeds. Tube feedings are currently at 34 ml/hour. Tracheostomy revision was not completed yesterday because anesthesia was unable to intubate patient due to subglottic stenosis. Patient currently Taken off of mechanical ventilation is on 40% trach collar. Pulmonary service following. Afebrile. WBC 9.1 PHYSICAL EXAM: VITAL SIGNS: Reviewed. GENERAL: Well-developed in no acute distress. HEENT: No sclera icterus. Extraocular movements grossly intact. Moist buccal mucosa. Head is atraumatic, normocephalic. ABDOMEN: Soft. Nondistended. Nontender. PEG tube site clean dry and intact NEUROLOGIC: Not responsive ASSESSMENT: 1. Status post out of hospital cardiopulmonary arrest 2. Status post mechanical ventilation with insertion of a pediatric tracheostomy tube and a prior tracheostoma site for hypoxic respiratory failure 3. Severe protein calorie malnutrition Status post PEG tube placement 3. Anoxic encephalopathy 4. History of vocal cord paralysis and previous tracheostomy 5. Possible aspiration pneumonia 6. Acute systolic CHF exacerbation 7. History of coronary artery disease with cardiac stents PLAN: -Continue tube feedings for nutritional support -Continue ICU management Physician Brim Rounder note has been reviewed by physician. Signing provider agrees with the documented findings, assessment, and plan of care. Objective - Vital Signs Vital signs: Vital Signs Temp 98.5 F 03/30/20 08:00 Pulse 83 03/30/20 12:14 Resp 26 H 03/30/20 11:00 BP 129/65 03/30/20 11:00 Pulse Ox 96 03/30/20 11:00 Intake & Output 03/29/20 03/30/20 03/30/20 18:59 06:59 18:59 Intake Total 1530 1570 631 Output Total 315 460 210 Balance 1215 1110 421 Weight 100 kg 102.1 kg Intake: IV 1180 1100 465 0.9% Na 680 900 265 Dextrose 5% in Water 1, 300 000 ml @ 75 mls/hr IV . [id number] [facility] Rx#:[id number] Piperacillin-Tazobactam 3 100 100 100 .375 gm In Sodium Chloride 0.9% 100 ml @ 25 mls/hr IVPB Q8HR [facility] Rx# :[id number] levETIRAcetam IV 500 mg 100 100 In Sodium Chloride 0.9% 100 ml @ 400 mls/hr IVPB Q12HR [facility] Rx#:[id number] Intake, IV Titration 100 Amount levETIRAcetam IV 500 mg 100 In Sodium Chloride 0.9% 100 ml @ 400 mls/hr IVPB Q12HR [facility] Rx#:[id number] Tube Feeding 220 380 136 Other 30 90 30 Output: Urine 315 460 210 Other: Voiding Method Indwelling Catheter Indwelling Catheter Indwelling Catheter ABP, PAP, CO, CI - Last Documented Arterial Blood Pressure 136/50 - Labs CBC & Chem 7: 03/30/20 03:02 03/30/20 03:02 Labs: Abnormal Lab Results - Last 24 Hours (Table) 03/29/20 03/29/20 03/30/20 Range/Units 16:11 20:03 00:04 RBC (3.80-5.40) m/uL Hgb (11.4-16.0) gm/dL Hct (34.0-46.0) % ABG pO2 (83-108) mmHg ABG Total CO2 (19-24) mmol/L Sodium (137-145) mmol/L Chloride (98-107) mmol/L BUN (7-17) mg/dL Glucose (74-99) mg/dL POC Glucose (mg/dL) 137 H 171 H 142 H (75-99) mg/dL 03/30/20 03/30/20 03/30/20 Range/Units 03:02 03:02 04:05 RBC 3.58 L (3.80-5.40) m/uL Hgb 10.2 L (11.4-16.0) gm/dL Hct 31.7 L (34.0-46.0) % ABG pO2 (83-108) mmHg ABG Total CO2 (19-24) mmol/L Sodium 136 L (137-145) mmol/L Chloride 108 H (98-107) mmol/L BUN 19 H (7-17) mg/dL Glucose 181 H (74-99) mg/dL POC Glucose (mg/dL) 197 H (75-99) mg/dL 03/30/20 03/30/20 03/30/20 Range/Units 05:09 08:22 11:51 RBC (3.80-5.40) m/uL Hgb (11.4-16.0) gm/dL Hct (34.0-46.0) % ABG pO2 76 L (83-108) mmHg ABG Total CO2 26 H (19-24) mmol/L Sodium (137-145) mmol/L Chloride (98-107) mmol/L BUN (7-17) mg/dL Glucose (74-99) mg/dL POC Glucose (mg/dL) 164 H 199 H (75-99) mg/dL Microbiology - Last 24 Hours (Table) 03/27/20 14:49 Blood Culture - Preliminary Blood No Growth after 48 hours
--- NOTE | 2020-03-30 15:29 | P.PN ---
Subjective Progress Note Date: 03/30/20 The patient the was seen at bedside and the per the nurse patient has not had any seizure-like activity. Patient received hydromorphone 1 mg on 1027 around 7:09am. Patient remains on a ventilator with trach. Continues to be nonresponsive. She's not any sedation medication. Objective - Vital Signs Vital signs: Vital Signs Temp 98.3 F 03/30/20 12:00 Pulse 85 03/30/20 15:18 Resp 33 H 03/30/20 15:00 BP 138/75 03/30/20 15:00 Pulse Ox 94 L 03/30/20 15:15 Intake & Output 03/29/20 03/30/20 03/30/20 18:59 06:59 18:59 Intake Total 1530 1570 945 Output Total 315 460 420 Balance 1215 1110 525 Weight 100 kg 102.1 kg Intake: IV 1180 1100 545 0.9% Na 680 900 345 Dextrose 5% in Water 1, 300 000 ml @ 75 mls/hr IV . [id number] [facility] Rx#:[id number] Piperacillin-Tazobactam 3 100 100 100 .375 gm In Sodium Chloride 0.9% 100 ml @ 25 mls/hr IVPB Q8HR [facility] Rx# :[id number] levETIRAcetam IV 500 mg 100 100 In Sodium Chloride 0.9% 100 ml @ 400 mls/hr IVPB Q12HR [facility] Rx#:[id number] Intake, IV Titration 100 Amount levETIRAcetam IV 500 mg 100 In Sodium Chloride 0.9% 100 ml @ 400 mls/hr IVPB Q12HR [facility] Rx#:[id number] Tube Feeding 220 380 340 Other 30 90 60 Output: Urine 315 460 420 Other: Voiding Method Indwelling Catheter Indwelling Catheter Indwelling Catheter ABP, PAP, CO, CI - Last Documented Arterial Blood Pressure 136/50 - Exam Respiratory: She is trach and on Vent. Clear to auscultation throughout Neurological exam: Limited because of her condition. Patient continues to be unresponsive. Patient is awake alert. She is not verbally responsive or following commands. The pupils are round and 3-4mm bilaterally. The visual benítez are intact to threat bilaterally throughout. Positive corneal reflex bilaterally. There is no facial weakness appreciated bilaterally. Has intact gag reflex Motor: Gait is deferred. Strength could not be assessed because of patient condition. Sensation to painful stimuli seems intact. With painful stimuli. Upper or lower extremities she'll grimace her face. - Labs CBC & Chem 7: 03/30/20 03:02 03/30/20 03:02 Labs: Abnormal Lab Results - Last 24 Hours (Table) 03/29/20 03/29/20 03/30/20 Range/Units 16:11 20:03 00:04 RBC (3.80-5.40) m/uL Hgb (11.4-16.0) gm/dL Hct (34.0-46.0) % ABG pO2 (83-108) mmHg ABG Total CO2 (19-24) mmol/L Sodium (137-145) mmol/L Chloride (98-107) mmol/L BUN (7-17) mg/dL Glucose (74-99) mg/dL POC Glucose (mg/dL) 137 H 171 H 142 H (75-99) mg/dL 03/30/20 03/30/20 03/30/20 Range/Units 03:02 03:02 04:05 RBC 3.58 L (3.80-5.40) m/uL Hgb 10.2 L (11.4-16.0) gm/dL Hct 31.7 L (34.0-46.0) % ABG pO2 (83-108) mmHg ABG Total CO2 (19-24) mmol/L Sodium 136 L (137-145) mmol/L Chloride 108 H (98-107) mmol/L BUN 19 H (7-17) mg/dL Glucose 181 H (74-99) mg/dL POC Glucose (mg/dL) 197 H (75-99) mg/dL 03/30/20 03/30/20 03/30/20 Range/Units 05:09 08:22 11:51 RBC (3.80-5.40) m/uL Hgb (11.4-16.0) gm/dL Hct (34.0-46.0) % ABG pO2 76 L (83-108) mmHg ABG Total CO2 26 H (19-24) mmol/L Sodium (137-145) mmol/L Chloride (98-107) mmol/L BUN (7-17) mg/dL Glucose (74-99) mg/dL POC Glucose (mg/dL) 164 H 199 H (75-99) mg/dL Microbiology - Last 24 Hours (Table) 03/27/20 14:49 Blood Culture - Preliminary Blood No Growth after 48 hours Assessment and Plan Assessment: 64-year-old female, who has tracheostomy since March 2019, had a witnessed respiratory arrest followed by cardiac arrest at home, with downtime of about 10 minutes, although patient's daughter stating <5 minutes. Patient is 6 days post cardiac arrest, now showing signs of clinical improvement. * Encephalopathy: Multifactorial (predominately due to cardiac arrest) and component of toxic-metabolic encephalopathy from medication use (Dilaudid). * History of cardiac arrest in October 2018 during cardiac procedure. * History of vocal cord paralysis and previous tracheostomy. * COPD * Diabetes * Hypertension * Mild renal insufficiency. * X tobacco use Plan: * Recommend to avoid any the sedation or opioid as much as possible. * Repeat computed tomography scan of the head 03/24/2020, revealed no acute process, no cerebral edema or CVA. * Repeat EEG 03/23/2020 revealed diffuse slowing in moderate to high amplitude delta range, consistent with severe encephalopathy. No epileptiform activity was seen on this study. * Repeat EEG on 03/27/2020 showed no epileptiform activity. The background improved at. * Continue Keppra 500 mg twice a day (adjusted to her renal functions). * Continue Neurontin 300 mg 3 times a day based upon her renal functions. * As a result of the cardiac arrest the patient suffered brain injury. Patient does have intact brainstem reflexes but I think the patient will be dependent on others for assistance. We'll continue to follow Time with Patient: Less than 30
--- NOTE | 2020-03-30 16:22 | P.PCN ---
Date of Procedure: 03/30/20 Preoperative Diagnosis: Upper airway obstruction Postoperative Diagnosis: Upper airway obstruction, abnormal mobility of the vocal cords, unable to pass the bronchoscope past the vocal cords to evaluate the subglottic area, possible bilateral vocal cord paralysis. Adequate positioning of the tracheostomy tube, #4 Shiley Anesthesia: none Surgeon: Nadeem Atkinson Pathology: other Condition: critical Disposition: ICU Operative Findings: This is a flexible bronchoscope that was done in the ICU. The patient is hypoxic encephalopathy. The patient has a #[address] The patient failed a revision tracheostomy as the patient was unable to get intubated by anesthesia. Based on this, it evaluation was needed and I decide to do have bronchoscopic elevation of the upper airway to evaluate the patency of the airways. The flexible bronchoscope was introduced through the right nostril. The bronchoscope was easily advanced to the upper airways including the pharynx and the larynx. There was some dynamic obstruction of the pharyngeal laryngeal was related to an underlying component of obstructive sleep apnea. In any rate, the epiglottis was identified. Inspection of the vocal cords was done. The arytenoids were quite swollen. There was some limited mobility of the vocal cords with limited adduction and the extent of adduction was not enough for me to pass the bronchoscope into the subglottic area. I did not see any lesions or tumors or masses occupying the upper airway. I did have a quite high suspicion of the patient's vocal cords were paralyzed. It was a bronchoscope and I passed the bronchoscope through the tracheostomy tube and the bronchoscope was easily passed today mid in the lower trachea and there was some looseness for secretions that were suctioned out at any major difficulties. The bronchoscope was removed and a tracheostomy tube was secured in place. The patient did not encounter any desaturations during the procedure. The pulse oximeter was 90%. We'll keep the tracheostomy tube in and this will be a permanent tracheostomy tube for this patient. She does have significant compromise in the vocal cords with possible bilateral vocal cord paralysis.
[2020-03-30 16:26] LABS: Glucose,Whole Blood 206 mg/dL (75-99)
[2020-03-30 20:00] LABS: Glucose,Whole Blood 181 mg/dL (75-99)
[2020-03-30] MEDS ORDERED: fentaNYL (PF) 50 MCG/ML 2 ML AMP IV PRN (20:09)
[2020-03-30] MEDS ORDERED: MIDAZOLAM 2 MG/2 ML VIAL IV PRN (20:09)
[2020-03-30] MEDS ORDERED: ONDANSETRON 4 MG/2 ML VIAL IVP PRN (20:09)
[2020-03-30 23:51] LABS: Glucose,Whole Blood 176 mg/dL (75-99)
[2020-03-31] MEDS: IPRATROPIUM-ALBUTEROL 3 ML NEB INHALATION SCH ×7 (00:30→23:06)
[2020-03-31] MEDS: HYDROmorphone 1 MG/ML 1 ML SYRINGE IVP PRN ×2 (00:35→22:49)
[2020-03-31 04:12] LABS: Basophils % (A) 0 %; Eosinophils # (A) 0.2 k/uL (0-0.7); Eosinophils % (A) 2 %; HCT 31.9 % (34.0-46.0); HGB 10.1 gm/dL (11.4-16.0); Lymphocytes # (A) 0.8 k/uL (1.0-4.8); Lymphocytes % (A) 9 %; MCH 28.3 pg (25.0-35.0); MCHC 31.7 g/dL (31.0-37.0); MCV 89.3 fL (80.0-100.0); Mean Platelet Volume 8.5; Monocytes # (A) 0.4 k/uL (0-1.0); Monocytes % (A) 4 %; Neutrophils # (A) 7.6 k/uL (1.3-7.7); Neutrophils % (A) 84 %; Platelet Count 215 k/uL (150-450); RBC 3.57 m/uL (3.80-5.40); WBC 9.1 k/uL (3.8-10.6)
[2020-03-31 04:13] LABS: Glucose,Whole Blood 240 mg/dL (75-99)
[2020-03-31 04:21] LABS: Calcium 8.8 mg/dL (8.4-10.2); Potassium 4.2 mmol/L (3.5-5.1)
[2020-03-31] MEDS: INSULIN ASPART (NovoLOG) 100 UNIT/ML VIAL SQ SCH ×5 (04:21→21:22)
[2020-03-31 05:20] LABS: ABG Base Excess -1.3 mmol/L; ABG HCO3 23 mmol/L (21-25); ABG Oxygen Saturation 97.6 % (94-97); ABG PCO2 37 mmHg (35-45); ABG PH 7.41 (7.35-7.45); ABG PO2 83 mmHg (83-108); ABG TCO2 24 mmol/L (19-24); Allen Test Performed? Yes
[2020-03-31] MEDS: carvediloL 12.5 MG TAB PO SCH ×2 (06:47→16:20)
[2020-03-31] MEDS ORDERED: SENNOSIDES 8.6 MG TAB PO PRN (07:45)
[2020-03-31 09:10] LABS: Glucose,Whole Blood 249 mg/dL (75-99)
--- NOTE | 2020-03-31 09:12 | XR ---
EXAMINATION TYPE: XR chest 1V DATE OF EXAM: 03/31/2020 CLINICAL HISTORY: mechanical ventilation. TECHNIQUE: Portable semiupright view of the chest. COMPARISON: 03/30/2020 chest radiograph FINDINGS: Tracheostomy tube overlies the tracheal air column. Right PICC distal tip over the right a trium. Persistent bibasilar opacities, not significantly changed. Small bilateral pleural effusions. No pneumothorax. IMPRESSION: Unchanged bilateral airspace opacities. Small bilateral pleural effusions.
[2020-03-31] MEDS: PRASUGREL 10 MG TAB PO SCH (09:14)
[2020-03-31] MEDS: DOCUSATE ORAL SOLN 100 MG/10 ML CUP PO SCH (09:14)
[2020-03-31] MEDS: levETIRAcetam 500 MG TAB PO SCH ×2 (09:14→21:23)
[2020-03-31] MEDS: CHLORHEXIDINE GLUCONATE 15 ML CUP MUCOUS MEM SCH ×2 (09:14→21:23)
[2020-03-31] MEDS: lisinopriL 10 MG TAB PO SCH (09:15)
[2020-03-31] MEDS: ASPIRIN 81 MG PO SCH (09:15)
[2020-03-31] MEDS: GABAPENTIN 300 MG CAP PO SCH ×3 (09:15→21:23)
[2020-03-31] MEDS: EZETIMIBE 10 MG TAB PO SCH (09:15)
[2020-03-31] MEDS: FUROSEMIDE 10 MG/ML 4 ML VIAL IV SCH (09:15)
[2020-03-31] MEDS: amLODIPine 10 MG TAB PO SCH (09:15)
[2020-03-31] MEDS: HEPARIN SODIUM,PORCINE 5,000 UNIT/ML 1 ML VIAL SQ SCH ×2 (09:15→16:18)
[2020-03-31] MEDS: PANTOPRAZOLE 40 MG/10 ML VIAL IVP SCH (09:15)
[2020-03-31] MEDS: ACETAMINOPHEN TAB 325 MG TAB PO PRN (09:16)
[2020-03-31] MEDS: LACTATED RINGERS 1,000 ML IV SCH (09:24)
[2020-03-31 10:29] LABS: Appearance,Urine Cloudy (Clear); Bacteria,Urine Moderate /hpf; Bilirubin,Urine Negative (Negative); Blood,Urine Moderate (Negative); Budding Yeast,Urine Few /hpf; Color,Urine Colorless; Glucose,Urine (UA) Negative (Negative); Ketones,Urine Negative (Negative); Leukocyte Esterase,Urine Large (Negative); Nitrite,Urine Negative (Negative); Protein,Urine Negative (Negative); RBC,Urine 112 /hpf (0-5); Specific Gravity,Urine 1.007 (1.001-1.035); Squamous Epithelial Cell,Urine 1 /hpf (0-4); Urobilinogen,Urine <2.0 mg/dL (<2.0); WBC,Urine 13 /hpf (0-5)
--- NOTE | 2020-03-31 12:09 | P.PN ---
Subjective Progress Note Date: 03/31/20 64-year-old male patient with known history of coronary artery disease and previous cardiac arrest that goes back in October 2018. At that time the patient had an elective cardiac catheterization and the patient was found to have mild LAD lesion. During the procedure, the patient went into a cardiac arrest and angioplasty was performed. However, the patient developed profound hypotension and went into a PEA rhythm. At that time the patient had a cardiac arrest for a total of 60 minutes in the [employer]. During that time, the patient had a stent to the LAD and the patient was resuscitated and Levaquin prescription assisted device was inserted and the patient was eventually transferred to the intensive care unit. The patient prolonged course of intubation mechanical ventilation and ultimately the patient was discharged on 10/17/2019. At that time, the patient is systolic heart failure with an ejection fraction of 35%. The patient also known to have COPD and possibly a left cord paralysis as the patient had intermittent episodes of stridor. The patient was again seen as an inpatient on 03/23/2019 at that time he was having shortness of breath and stridor and eventually the patient a tracheostomy tube placed. His tracheostomy was done on 05/14/2019 at [facility]. The patient was brought him back to the hospital on 03/20/2020 for another episode of cardiopulmonary arrest. Apparently the patient was found to be unresponsive and the scene and the patient collapsed and she was pulseless. She was in ventricular fibrillation. She was given epinephrine and she was shocked/defibrillator. CPR was numb for a total of 5 minutes and following that there was a spontaneous return of circulation. The patient was brought into the hospital unresponsive. CAT scan of the brain was negative. Comorbidities include diabetes mellitus, hypertension, hyperlipidemia, coronary artery disease, diabetes mellitus related peripheral neuropathy and as mentioned previous history of cardiac arrest that occurred in October 2018. During this current admission, the patient had insertion of a PEG tube. She remains on a mechanical ventilator. . The patient has anoxic encephalopathy with the latest EEG that was done on 03/27/2020 showing abnormal EEG with moderate slowing in generalized cerebral dysfunction without any seizure. The echocardiogram was done on 03/22/2020 showed improvement in function with an ejection fraction of 60-65% and there was no valvular abnormalities noted. The patient had a picc line in the RUE. The patient is covered with IV Zosyn for possible aspiration pneumonia. The patient is currently on D5 water. The patient is on Cleviprex 1 mg an hour from BP control. The patient remains on a mechanical ventilator. The patient has a #4 Sh[address] trache[address] tube in place. This morning the patient is on assist control mode at the rate of 24 with a tidal volume of 650 and FiO2 of 35% with a PEEP of 5. The blood gases from this morning showed a pH of 7.44 with a pCO2 of 39 and pO2 of 74 and the chest x-ray shows some limited atelectatic changes in lung bases and the tracheostomy tube was in a good location. The patient is on D5 water infusion at the rate of 75 mL an hour and sodium level is improving is down to 138. The patient was taken to the operating room by general surgery. An attempt was done to revise a tracheostomy tube and it failed. The patient was not able to get intubated by anesthesia as there was significant narrowing and the intubation process failed even with a smaller bronchoscope. Based on that, the procedure got canceled. The patient remains off sedation. The patient is withdrawing only to deep painful stimulation. She will occasionally get emesis. She does not follow any commands. No purposeful movement at this point in time. On 03/30/2020, the patient is still off sedation, still encephalopathic and this is attributed to hypoxic encephalopathy. The patient earlier this morning was on a mechanical ventilator. I took her off the mechanical ventilator and I put the patient a trach collar and the patient did well without any major difficulties. She was placed on a 40% trach collar. She is able to cough and she is able to clear respiratory secretions. The patient does not have any major respiratory secretions. Earlier this morning, she wasn't an FiO2 of 35% with a PEEP of 5 and I was able to switch her and transition her to a trach collar. She is tolerating her enteral feeding for nutritional support. She is on limited stable. IV fluids are running at 75 mL an hour. No fever. No chills. No aspiration. Chest x-ray from today is showing adequate positioning of the tracheostomy tube and there is also some mild improved aeration on the bilateral lungs and there is some limited infiltration of the lung bases bilaterally. The patient is currently off the clevidipine drip and the blood pressures under better control at the patient is receiving a combination of Zestril and Coreg. The patient is continuing the course of antibiotics and IV Zosyn. IV fluids were running at 75 mL an hour and I cut it down to 20 mL an hour as maintenance. No other significant events. I also performed a bedside bronchoscopy on this patient in the upper airway inspection showed that the pat ient's cords were not fully functional. There was some mobility with abduction yet the extent of adduction was not enough for me to pass my bronchoscope past the vocal cords. There may be also some underlying subglottic stenosis which I was unable to visualize. 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 Currently the patient has a #4 Shiley [address] tube in [address]. 03/31/2020, the patient continues to have signs of anoxic encephalopathy. the patient is unresponsive. The patient was on a assist-control mode of ventilation with a tidal volume of 350 and the rate of 24 with an FiO2 of 35% and a PEEP of 5. I switched her to 35% trach collar. She is in a positive fluid balance. The input output balance was +2.3 L over the past 24 hours and the patient is receiving enteral feeding for nutritional support and she is on vital high protein at the rate of 34 mL an hour. She has completed the course of IV Zosyn. No respiratory secretions. Tracheostomy tube is in place. We are still awaiting clearance and insurance authorization to transfer this patient to [facility]. The patient has no seizure activity. Remains unresponsive. Opens her eyes spontaneously. Does not follow any commands. She is getting more contracted an upper and lower extremities. Her next images are also edematous. She is taking no sedation for now. Objective - Vital Signs Vital signs: Vital Signs Temp 98.5 F 03/31/20 08:00 Pulse 76 03/31/20 11:00 Resp 17 03/31/20 11:00 BP 143/76 03/31/20 11:00 Pulse Ox 96 03/31/20 11:00 Intake & Output 03/30/20 03/31/20 03/31/20 18:59 06:59 18:59 Intake Total 1271 972 276 Output Total 640 585 500 Balance 631 387 -224 Weight 99.7 kg Intake: IV 705 440 100 0.9% Na 405 240 100 Piperacillin-Tazobactam 3 200 100 .375 gm In Sodium Chloride 0.9% 100 ml @ 25 mls/hr IVPB Q8HR GREG Rx# :[id number] levETIRAcetam IV 500 mg 100 100 In Sodium Chloride 0.9% 100 ml @ 400 mls/hr IVPB Q12HR GREG Rx#:[id number] Tube Feeding 476 442 146 Other 90 90 30 Output: Urine 640 585 500 Other: Voiding Method Indwelling Catheter Indwelling Catheter Indwelling Catheter ABP, PAP, CO, CI - Last Documented Arterial Blood Pressure 136/50 - Exam Gen. appearance the patient is calm and comfortable, responsive, currently off sedation and currently the patient is off the mechanical ventilator on trach collar initially 40% and currently she is down to 35% trach collar. Head exam was generally normal. There was no scleral icterus or corneal arcus. Mucous membranes were moist. Neck was supple and without jugular venous distension, thyromegaly, or carotid bruits. Carotids were easily palpable bilaterally. There was no adenopathy.the patient is a tracheostomy tube in place and the patient has a #4 Shiley tracheostomy tube in place. Cardiac exam revealed the PMI to be normally situated and sized. The rhythm was regular and no extrasystoles were noted during several minutes of auscultation. The first and second heart sounds were normal and physiologic splitting of the second heart sound was noted. There were no murmurs, rubs, clicks, or gallops. Lungs sounds are diminished and the patient is some few scattered rhonchi and somewhat coarse. No wheezes or crackles. Breath sounds are equal and symmetrical at this point in time. Abdominal exam revealed normal bowel sounds. The abdomen was soft, non-tender, and without masses, organomegaly, or appreciable enlargement of the abdominal aorta.. The patient has a PEG tube in place and the patient is a colostomy Examination of the extremities revealed easily palpable radial, femoral and pedal pulses. There was no cyanosis, clubbing or edema. Examination of the skin revealed no evidence of significant rashes, suspicious appearing nevi or other concerning lesions. Neurologically the patient is nonverbal and the patient is not responsive to any verbal or painful stimulation. Neurologic exam is essentially unchanged compared to yesterday. Motor and sensory function cannot be assessed. The patient may grimace and do some slight withdrawing to deep painful stimulation to her upper extremity. Otherwise, she doesn't following commands. No nystagmus. No preferential gaze. - Labs CBC & Chem 7: 03/31/20 03:34 03/31/20 03:34 Labs: Abnormal Lab Results - Last 24 Hours (Table) 03/30/20 03/30/20 03/30/20 Range/Units 16:24 19:58 23:49 RBC (3.80-5.40) m/uL Hgb (11.4-16.0) gm/dL Hct (34.0-46.0) % Lymphocytes # (1.0-4.8) k/uL ABG O2 Saturation (94-97) % Chloride (98-107) mmol/L Carbon Dioxide (22-30) mmol/L BUN (7-17) mg/dL Glucose (74-99) mg/dL POC Glucose (mg/dL) 206 H 181 H 176 H (75-99) mg/dL Urine Appearance (Clear) Urine Blood (Negative) Ur Leukocyte Esterase (Negative) Urine RBC (0-5) /hpf Urine WBC (0-5) /hpf Urine WBC Clumps (None) /hpf Urine Bacteria (None) /hpf Urine Yeast (Budding) (None) /hpf 03/31/20 03/31/20 03/31/20 Range/Units 03:34 03:34 04:12 RBC 3.57 L (3.80-5.40) m/uL Hgb 10.1 L (11.4-16.0) gm/dL Hct 31.9 L (34.0-46.0) % Lymphocytes # 0.8 L (1.0-4.8) k/uL ABG O2 Saturation (94-97) % Chloride 109 H (98-107) mmol/L Carbon Dioxide 21 L (22-30) mmol/L BUN 19 H (7-17) mg/dL Glucose 239 H (74-99) mg/dL POC Glucose (mg/dL) 240 H (75-99) mg/dL Urine Appearance (Clear) Urine Blood (Negative) Ur Leukocyte Esterase (Negative) Urine RBC (0-5) /hpf Urine WBC (0-5) /hpf Urine WBC Clumps (None) /hpf Urine Bacteria (None) /hpf Urine Yeast (Budding) (None) /hpf 03/31/20 03/31/20 03/31/20 Range/Units 05:17 09:08 09:50 RBC (3.80-5.40) m/uL Hgb (11.4-16.0) gm/dL Hct (34.0-46.0) % Lymphocytes # (1.0-4.8) k/uL ABG O2 Saturation 97.6 H (94-97) % Chloride (98-107) mmol/L Carbon Dioxide (22-30) mmol/L BUN (7-17) mg/dL Glucose (74-99) mg/dL POC Glucose (mg/dL) 249 H (75-99) mg/dL Urine Appearance Cloudy H (Clear) Urine Blood Moderate H (Negative) Ur Leukocyte Esterase Large H (Negative) Urine RBC 112 H (0-5) /hpf Urine WBC 13 H (0-5) /hpf Urine WBC Clumps Few H (None) /hpf Urine Bacteria Moderate H (None) /hpf Urine Yeast (Budding) Few H (None) /hpf Microbiology - Last 24 Hours (Table) 03/27/20 15:25 Urine Culture - Final Urine,Clean Catch Tammie glabrata 03/27/20 14:49 Blood Culture - Preliminary Blood No Growth after 72 hours Assessment and Plan Plan: 1 History of [id number] cardiac pulmonary arrest secondary to ventricular fibrillation/PEA rhythm. The patient is on them of at least 10 minutes she can return of ventilation. I suspect that the patient probably had a respiratory arrest related to a complication of her airways as the patient was found to have significant narrowing in her upper airway to the point where the patient had failed a revision of a tracheostomy tube. I further did an upper airway inspection on this patient on 03/30/2020 and the patient did not have full mobility and adduction of the vocal cords and I was unable to pass the bronchoscope through the vocal cords and I also suspect a possibility of subglottic stenosis in addition to weakness/paralysis of the vocal cords. As such, I would suggest keeping the tracheostomy tube in place. The patient continues to have signs of hypoxic/anoxic encephalopathy without any interval improvement and she remains to be unresponsive. 2 anoxic encephalopathy secondary to above, the patient continues to be deeply encephalopathic, unresponsive to any verbal stimulation, may withdrawal or grimace to deep painful stimulation and her overall neurologic function have remained unchanged over the past 72 hours. 3 chronic respiratory failure, hypoxic in nature and the patient has a tracheostomy tube in place, and this is a #4 shotty tracheostomy tube. A bronchoscopy and upper airway inspection was done. Consider the possibility of a severe subglottic stenosis probably related to previous tracheostomy tube insertion and probably related to previous intubation. The patient is also suspected to have a vocal cord paralysis as the patient was not found to have complete ability to abduct the vocal cords.. Currently the patient has a #4 tracheostomy tube insertion that was placed at a time of her cardiac arrest. The patient was taken off the mechanical ventilator and the patient is currently on 35% tracheostomy collar. Note that overnight she was still A Assist-Control Mode of Ventilation Earlier This Morning Show a Trach Collar. 4 PEG tube for enteral feeding and nutritional support, postop day #5 5 possible aspiration pneumonia currently on IV Zosyn, completed the course of the chest x-ray findings are essentially stable 6 history of ischemic cardiomyopathy with a recent echocardiogram showed improvement in LV function with normalization of the LV 7 history of previous tracheostomy tube insertion, inserted for stridor and respiratory difficulty, requiring insertion and removal of tracheostomy tube. 8 COPD 9 coronary artery disease with previous stenting of the LAD 1o previous history of cardiac arrest from 2008 11 Hypertension and the blood pressure is under better control for now. 12 diabetic peripheral neuropathy 13 hypernatremia, improved, currently on normal saline infusion and the fluid rate will be cut down to KVO. Plan IV fluids to 20 mL an hour Lasix 40 mg IV every 24 hours Keep the patient on a trach collar 35% May use assist-control mode of ventilation overnight Continue enteral feeding for nutritional support through the PEG tube The revision of the tracheostomy tube was aborted because of failure of ac hieving adequate airway and intubation during the procedure. We'll keep the #4 tracheostomy Shiley tube in place for now. Lower airway inspection through my flexible bronchoscope showed a daily tracheostomy tube was in a good location and the patient some looseness for secretions and the patient had some tracheal bronchomalacia. Completed the course of Zosyn and this will be discontinued The patient continues to have severe encephalopathy related to hypoxic encephalopathy. There is no interval improvement in his neurologic functions We'll continue the supportive care, including enteral feeding for nutritional support We'll continue to follow, make further recommendations based on and progress. This evaluation was done more than 30 minutes. We are moving this patient to select specialty once the patient gets insurance authorization.. Full CODE STATUS per family. Time with Patient: Greater than 30
[2020-03-31 12:17] LABS: Glucose,Whole Blood 239 mg/dL (75-99)
--- NOTE | 2020-03-31 12:52 | P.PN ---
Subjective Progress Note Date: 03/31/20 CHIEF COMPLAINT: Cardiopulmonary arrest HISTORY OF PRESENT ILLNESS: Patient is a remains in the ICU. She is status post PEG tube placement she is tolerating tube feeds. Tube feedings are currently at 44 ml/hour. Tracheostomy revision was not completed yesterday because anesthesia was unable to intubate patient due to subglottic stenosis. Patient currently on 35% trach collar. Pulmonary service following. Afebrile. WBC 9.1 PHYSICAL EXAM: VITAL SIGNS: Reviewed. GENERAL: Well-developed in no acute distress. HEENT: No sclera icterus. Extraocular movements grossly intact. Moist buccal mucosa. Head is atraumatic, normocephalic. ABDOMEN: Soft. Nondistended. Nontender. PEG tube site clean dry and intact NEUROLOGIC: Not responsive ASSESSMENT: 1. Status post out of hospital cardiopulmonary arrest 2. Status post mechanical ventilation with insertion of a pediatric tracheostomy tube and a prior tracheostoma site for hypoxic respiratory failure 3. Severe protein calorie malnutrition Status post PEG tube placement 3. Anoxic encephalopathy 4. History of vocal cord paralysis and previous tracheostomy 5. Possible aspiration pneumonia 6. Acute systolic CHF exacerbation 7. History of coronary artery disease with cardiac stents PLAN: -Continue to titrate tube feedings to goal -Continue ICU management Physician Chef & Owner note has been reviewed by physician. Signing provider agrees with the documented findings, assessment, and plan of care. Objective - Vital Signs Vital signs: Vital Signs Temp 98.6 F 03/31/20 12:00 Pulse 78 03/31/20 12:43 Resp 27 H 03/31/20 12:00 BP 146/72 03/31/20 12:00 Pulse Ox 95 03/31/20 12:00 Intake & Output 03/30/20 03/31/20 03/31/20 18:59 06:59 18:59 Intake Total 1271 972 370 Output Total 907 289 0081 Balance 631 387 -780 Weight 99.7 kg Intake: IV 705 440 120 0.9% Na 405 240 120 Piperacillin-Tazobactam 3 200 100 .375 gm In Sodium Chloride 0.9% 100 ml @ 25 mls/hr IVPB Q8HR GREG Rx# :[id number] levETIRAcetam IV 500 mg 100 100 In Sodium Chloride 0.9% 100 ml @ 400 mls/hr IVPB Q12HR GREG Rx#:[id number] Tube Feeding 476 442 190 Other 90 90 60 Output: Urine 511 064 0515 Other: Voiding Method Indwelling Catheter Indwelling Catheter Indwelling Catheter ABP, PAP, CO, CI - Last Documented Arterial Blood Pressure 136/50 - Labs CBC & Chem 7: 03/31/20 03:34 03/31/20 03:34 Labs: Abnormal Lab Results - Last 24 Hours (Table) 03/30/20 03/30/20 03/30/20 Range/Units 16:24 19:58 23:49 RBC (3.80-5.40) m/uL Hgb (11.4-16.0) gm/dL Hct (34.0-46.0) % Lymphocytes # (1.0-4.8) k/uL ABG O2 Saturation (94-97) % Chloride (98-107) mmol/L Carbon Dioxide (22-30) mmol/L BUN (7-17) mg/dL Glucose (74-99) mg/dL POC Glucose (mg/dL) 206 H 181 H 176 H (75-99) mg/dL Urine Appearance (Clear) Urine Blood (Negative) Ur Leukocyte Esterase (Negative) Urine RBC (0-5) /hpf Urine WBC (0-5) /hpf Urine WBC Clumps (None) /hpf Urine Bacteria (None) /hpf Urine Yeast (Budding) (None) /hpf 03/31/20 03/31/20 03/31/20 Range/Units 03:34 03:34 04:12 RBC 3.57 L (3.80-5.40) m/uL Hgb 10.1 L (11.4-16.0) gm/dL Hct 31.9 L (34.0-46.0) % Lymphocytes # 0.8 L (1.0-4.8) k/uL ABG O2 Saturation (94-97) % Chloride 109 H (98-107) mmol/L Carbon Dioxide 21 L (22-30) mmol/L BUN 19 H (7-17) mg/dL Glucose 239 H (74-99) mg/dL POC Glucose (mg/dL) 240 H (75-99) mg/dL Urine Appearance (Clear) Urine Blood (Negative) Ur Leukocyte Esterase (Negative) Urine RBC (0-5) /hpf Urine WBC (0-5) /hpf Urine WBC Clumps (None) /hpf Urine Bacteria (None) /hpf Urine Yeast (Budding) (None) /hpf 03/31/20 03/31/20 03/31/20 Range/Units 05:17 09:08 09:50 RBC (3.80-5.40) m/uL Hgb (11.4-16.0) gm/dL Hct (34.0-46.0) % Lymphocytes # (1.0-4.8) k/uL ABG O2 Saturation 97.6 H (94-97) % Chloride (98-107) mmol/L Carbon Dioxide (22-30) mmol/L BUN (7-17) mg/dL Glucose (74-99) mg/dL POC Glucose (mg/dL) 249 H (75-99) mg/dL Urine Appearance Cloudy H (Clear) Urine Blood Moderate H (Negative) Ur Leukocyte Esterase Large H (Negative) Urine RBC 112 H (0-5) /hpf Urine WBC 13 H (0-5) /hpf Urine WBC Clumps Few H (None) /hpf Urine Bacteria Moderate H (None) /hpf Urine Yeast (Budding) Few H (None) /hpf 03/31/20 Range/Units 12:15 RBC (3.80-5.40) m/uL Hgb (11.4-16.0) gm/dL Hct (34.0-46.0) % Lymphocytes # (1.0-4.8) k/uL ABG O2 Saturation (94-97) % Chloride (98-107) mmol/L Carbon Dioxide (22-30) mmol/L BUN (7-17) mg/dL Glucose (74-99) mg/dL POC Glucose (mg/dL) 239 H (75-99) mg/dL Urine Appearance (Clear) Urine Blood (Negative) Ur Leukocyte Esterase (Negative) Urine RBC (0-5) /hpf Urine WBC (0-5) /hpf Urine WBC Clumps (None) /hpf Urine Bacteria (None) /hpf Urine Yeast (Budding) (None) /hpf Microbiology - Last 24 Hours (Table) 03/27/20 15:25 Urine Culture - Final Urine,Clean Catch Tammie glabrata 03/27/20 14:49 Blood Culture - Preliminary Blood No Growth after 72 hours
[2020-03-31 16:14] LABS: Glucose,Whole Blood 110 mg/dL (75-99)
[2020-03-31] MEDS: SODIUM CHLORIDE 0.9% 1,000 ML IV SCH (16:19)
--- NOTE | 2020-03-31 18:28 | P.PN ---
Subjective Progress Note Date: 03/31/20 The patient was seen at bedside and per patient nurse no further seizure-like activity at. Patient continues the to be on event and trach. Otherwise she has a brainstem reflex but no movement and does not respond that the commands per the patient nurse. She'll receive hydromorphone 1 mg at the just past midnight and that 03/31/2020. Objective - Vital Signs Vital signs: Vital Signs Temp 99.1 F 03/31/20 16:00 Pulse 80 03/31/20 17:14 Resp 31 H 03/31/20 17:00 BP 112/55 03/31/20 17:00 Pulse Ox 98 03/31/20 17:00 Intake & Output 03/30/20 03/31/20 03/31/20 18:59 06:59 18:59 Intake Total 1271 972 588 Output Total 812 455 3761 Balance 631 387 -1162 Weight 99.7 kg 99.7 kg Intake: IV 705 440 220 0.9% Na 405 240 220 Piperacillin-Tazobactam 3 200 100 .375 gm In Sodium Chloride 0.9% 100 ml @ 25 mls/hr IVPB Q8HR [facility] Rx# :[id number] levETIRAcetam IV 500 mg 100 100 In Sodium Chloride 0.9% 100 ml @ 400 mls/hr IVPB Q12HR [facility] Rx#:[id number] Tube Feeding 476 442 278 Other 90 90 90 Output: Urine 649 065 4828 Other: Voiding Method Indwelling Catheter Indwelling Catheter Indwelling Catheter ABP, PAP, CO, CI - Last Documented Arterial Blood Pressure 136/50 - Exam Respiratory: She is trach and on Vent. Clear to auscultation throughout Neurological exam: Limited because of her condition. Higher mental function. Patient is awake but continues to be unresponsive and not following any commands. The pupils are round and 3-4mm bilaterally. Positive corneal reflex bilater ally. There is no facial weakness appreciated bilaterally. Has intact gag reflex Motor: Gait is deferred. Strength could not be assessed because of patient condition. There is no spontaneous movement. Tone and bulk are normal. Sensation to painful stimuli seems intact. With painful stimuli. Upper or lower extremities she'll grimace her face. Reflexes are 1 positive throughout. - Labs CBC & Chem 7: 03/31/20 03:34 03/31/20 03:34 Labs: Abnormal Lab Results - Last 24 Hours (Table) 03/30/20 03/30/20 03/31/20 Range/Units 19:58 23:49 03:34 RBC 3.57 L (3.80-5.40) m/uL Hgb 10.1 L (11.4-16.0) gm/dL Hct 31.9 L (34.0-46.0) % Lymphocytes # 0.8 L (1.0-4.8) k/uL ABG O2 Saturation (94-97) % Chloride (98-107) mmol/L Carbon Dioxide (22-30) mmol/L BUN (7-17) mg/dL Glucose (74-99) mg/dL POC Glucose (mg/dL) 181 H 176 H (75-99) mg/dL Urine Appearance (Clear) Urine Blood (Negative) Ur Leukocyte Esterase (Negative) Urine RBC (0-5) /hpf Urine WBC (0-5) /hpf Urine WBC Clumps (None) /hpf Urine Bacteria (None) /hpf Urine Yeast (Budding) (None) /hpf 03/31/20 03/31/20 03/31/20 Range/Units 03:34 04:12 05:17 RBC (3.80-5.40) m/uL Hgb (11.4-16.0) gm/dL Hct (34.0-46.0) % Lymphocytes # (1.0-4.8) k/uL ABG O2 Saturation 97.6 H (94-97) % Chloride 109 H (98-107) mmol/L Carbon Dioxide 21 L (22-30) mmol/L BUN 19 H (7-17) mg/dL Glucose 239 H (74-99) mg/dL POC Glucose (mg/dL) 240 H (75-99) mg/dL Urine Appearance (Clear) Urine Blood (Negative) Ur Leukocyte Esterase (Negative) Urine RBC (0-5) /hpf Urine WBC (0-5) /hpf Urine WBC Clumps (None) /hpf Urine Bacteria (None) /hpf Urine Yeast (Budding) (None) /hpf 03/31/20 03/31/20 03/31/20 Range/Units 09:08 09:50 12:15 RBC (3.80-5.40) m/uL Hgb (11.4-16.0) gm/dL Hct (34.0-46.0) % Lymphocytes # (1.0-4.8) k/uL ABG O2 Saturation (94-97) % Chloride (98-107) mmol/L Carbon Dioxide (22-30) mmol/L BUN (7-17) mg/dL Glucose (74-99) mg/dL POC Glucose (mg/dL) 249 H 239 H (75-99) mg/dL Urine Appearance Cloudy H (Clear) Urine Blood Moderate H (Negative) Ur Leukocyte Esterase Large H (Negative) Urine RBC 112 H (0-5) /hpf Urine WBC 13 H (0-5) /hpf Urine WBC Clumps Few H (None) /hpf Urine Bacteria Moderate H (None) /hpf Urine Yeast (Budding) Few H (None) /hpf 03/31/20 Range/Units 16:11 RBC (3.80-5.40) m/uL Hgb (11.4-16.0) gm/dL Hct (34.0-46.0) % Lymphocytes # (1.0-4.8) k/uL ABG O2 Saturation (94-97) % Chloride (98-107) mmol/L Carbon Dioxide (22-30) mmol/L BUN (7-17) mg/dL Glucose (74-99) mg/dL POC Glucose (mg/dL) 110 H (75-99) mg/dL Urine Appearance (Clear) Urine Blood (Negative) Ur Leukocyte Esterase (Negative) Urine RBC (0-5) /hpf Urine WBC (0-5) /hpf Urine WBC Clumps (None) /hpf Urine Bacteria (None) /hpf Urine Yeast (Budding) (None) /hpf Microbiology - Last 24 Hours (Table) 03/27/20 14:49 Blood Culture - Preliminary Blood No Growth after 96 hours 03/31/20 09:50 Urine Culture - Preliminary Urine,Clean Catch 03/27/20 15:25 Urine Culture - Final Urine,Clean Catch Tammie glabrata Assessment and Plan Assessment: 64-year-old female, who has tracheostomy since March 2019, had a witnessed respiratory arrest followed by cardiac arrest at home, with downtime of about 10 minutes, although patient's daughter stating <5 minutes. Patient is 6 days post cardiac arrest, now showing signs of clinical improvement. * Anoxic brain encephalopathy Encephalopathy: cardiac arrest for 10 minute---no improvement since I had her for the past 3 days (has intact brainstem only). * Chronic respiratory failure, * Ossicle aspiration pneumonia * History of cardiac arrest in October 2018 during cardiac procedure. * History of vocal cord paralysis and previous tracheostomy. * COPD * Diabetes * Hypertension * Mild renal insufficiency. * X tobacco use Plan: * Recommend to avoid any the sedation or opioid as much as possible. * Repeat computed tomography scan of the head 03/24/2020, revealed no acute process, no cerebral edema or CVA. * Repeat EEG 03/23/2020 revealed diffuse slowing in moderate to high amplitude delta range, consistent with severe encephalopathy. No epileptiform activity was seen on this study. * Repeat EEG on 03/27/2020 showed no epileptiform activity. The background improved at. * Continue Keppra 500 mg twice a day (adjusted to her renal functions). * Continue Neurontin 300 mg 3 times a day based upon her renal functions. * As a result of the cardiac arrest the patient suffered which seem a significant brain injury. Patient does have intact brainstem reflexes but I think the patient will be dependent on others for assistance if there are any improvement. * Patient CODE STATUS is full code per family. * [facility] and pending insurance authorization We'll continue to follow Time with Patient: Greater than 30
[2020-03-31 21:15] LABS: Glucose,Whole Blood 193 mg/dL (75-99)
[2020-04-01 00:17] LABS: Glucose,Whole Blood 163 mg/dL (75-99)
[2020-04-01] MEDS: INSULIN ASPART (NovoLOG) 100 UNIT/ML VIAL SQ SCH ×6 (00:21→20:09)
[2020-04-01] MEDS: HEPARIN SODIUM,PORCINE 5,000 UNIT/ML 1 ML VIAL SQ SCH ×3 (00:22→16:09)
--- NOTE | 2020-04-01 00:35 | P.PN ---
Subjective Progress Note Date: 03/31/20 Principal diagnosis: Cardiac arrest with underlying rhythm of ventricle fibrillation Status post cardio pulmonary arrest and the patient to have presently has a tracheostomy and PEG tube at this time patient will be initiated on PEG tube feeding with feedings today. Patient is off duplex at this time patient is presently on amlodipine. Patient is awaiting disposition to family wanted to continue medical treatment although patient significant anoxic brain injury patient has significant edema because of which a tracheostomy revision was not done. Patient had low-grade fevers I'll obtain a septic workup with the blood cultures chest x-ray in the and urine cultures. Tracheostomy site and PEG site is clean at this time doesn't appear to be infected at this time. Patient is also on KEPPRA PER NEUROLOGY 03/28/2020 No cigarette in change in her clinical condition. Patient denied history of low-grade fevers years little bit abnormal and still don't have any clear source of infection counseling her high risk for infection patient will be started on Zosyn awaiting blood and urine cultures. 03/29/2020 Patient's fevers resolved chest x-ray showing atelectasis although pneumonia cannot be ruled out continue Zosyn at this time. Because of significant edema in the neck area there were unable to replace the tracheostomy. 03/30/2020 No cigarette in change in her neurological status still opens eyes to just has brainstem reflexes there is no significant improvement patient underwent bronchoscopy today as per pulmonology patient cannot be intubated. The patient remains afebrile and being treated for pneumonia most probably ventilator associated. Urine cultures are negative, 03/31/2020 Patient is currently in MICU. Remains unresponsive and is on mechanical ventilation with assist control and FiO2 35% on trach collar. Tolerating tube feedings. General surgery is planning for tracheostomy revision. Currently being continued on antibiotics in the form of Zosyn. Urinalysis showed cloudy with large leukocyte esterase and increased WBCs and RBCs. Urine cultures growing Tammie glabrata and repeat cultures are pending. Chest x-ray showed unchanged bilateral airspace opacities. Small bilateral pleural effusions. Pulmonary and general surgery is on board. Current medications reviewed. Review of systems: Unable to obtain due to her clinical condition All inpatient medications were reviewed and appropriate changes in these medications as dictated in the interval history and assessment and plan. Objective - Vital Signs Vital signs: Vital Signs Temp 98.6 F 03/31/20 12:00 Pulse 85 03/31/20 15:00 Resp 43 H 03/31/20 15:00 BP 128/82 03/31/20 15:00 Pulse Ox 98 03/31/20 15:00 Intake & Output 03/30/20 03/31/20 03/31/20 18:59 06:59 18:59 Intake Total 1271 972 430 Output Total 951 554 3531 Balance 631 387 -1120 Weight 99.7 kg 99.7 kg Intake: IV 705 440 180 0.9% Na 405 240 180 Piperacillin-Tazobactam 3 200 100 .375 gm In Sodium Chloride 0.9% 100 ml @ 25 mls/hr IVPB Q8HR [facility] Rx# :[id number] levETIRAcetam IV 500 mg 100 100 In Sodium Chloride 0.9% 100 ml @ 400 mls/hr IVPB Q12HR [facility] Rx#:[id number] Tube Feeding 476 442 190 Other 90 90 60 Output: Urine 061 772 7184 Other: Voiding Method Indwelling Catheter Indwelling Catheter Indwelling Catheter ABP, PAP, CO, CI - Last Documented Arterial Blood Pressure 136/50 - Exam PHYSICAL EXAMINATION: GENERAL: She has a tracheostomy and PEG tube in place patient does have the pupillary reflexes does open the eyes does have brainstem reflexes HEENT: No scleral icterus. No conjunctival pallor. CARDIOVASCULAR: S1 and S2 present. No murmurs, rubs, or gallops. PULMONARY: Chest is clear to auscultation, no wheezing or crackles. ABDOMEN: Soft, nontender, nondistended, normoactive bowel sounds. No palpable organomegaly. MUSCULOSKELETAL: No joint swelling or deformity. EXTREMITIES: No cyanosis, clubbing, or pedal edema. NEUROLOGICAL: Unable to assess please refer to neurology documentation corneal reflexes present gag reflex is present SKIN: No rashes. - Labs CBC & Chem 7: 03/31/20 03:34 03/31/20 03:34 Labs: Abnormal Lab Results - Last 24 Hours (Table) 03/30/20 03/30/20 03/30/20 Range/Units 16:24 19:58 23:49 RBC (3.80-5.40) m/uL Hgb (11.4-16.0) gm/dL Hct (34.0-46.0) % Lymphocytes # (1.0-4.8) k/uL ABG O2 Saturation (94-97) % Chloride (98-107) mmol/L Carbon Dioxide (22-30) mmol/L BUN (7-17) mg/dL Glucose (74-99) mg/dL POC Glucose (mg/dL) 206 H 181 H 176 H (75-99) mg/dL Urine Appearance (Clear) Urine Blood (Negative) Ur Leukocyte Esterase (Negative) Urine RBC (0-5) /hpf Urine WBC (0-5) /hpf Urine WBC Clumps (None) /hpf Urine Bacteria (None) /hpf Urine Yeast (Budding) (None) /hpf 03/31/20 03/31/20 03/31/20 Range/Units 03:34 03:34 04:12 RBC 3.57 L (3.80-5.40) m/uL Hgb 10.1 L (11.4-16.0) gm/dL Hct 31.9 L (34.0-46.0) % Lymphocytes # 0.8 L (1.0-4.8) k/uL ABG O2 Saturation (94-97) % Chloride 109 H (98-107) mmol/L Carbon Dioxide 21 L (22-30) mmol/L BUN 19 H (7-17) mg/dL Glucose 239 H (74-99) mg/dL POC Glucose (mg/dL) 240 H (75-99) mg/dL Urine Appearance (Clear) Urine Blood (Negative) Ur Leukocyte Esterase (Negative) Urine RBC (0-5) /hpf Urine WBC (0-5) /hpf Urine WBC Clumps (None) /hpf Urine Bacteria (None) /hpf Urine Yeast (Budding) (None) /hpf 03/31/20 03/31/20 03/31/20 Range/Units 05:17 09:08 09:50 RBC (3.80-5.40) m/uL Hgb (11.4-16.0) gm/dL Hct (34.0-46.0) % Lymphocytes # (1.0-4.8) k/uL ABG O2 Saturation 97.6 H (94-97) % Chloride (98-107) mmol/L Carbon Dioxide (22-30) mmol/L BUN (7-17) mg/dL Glucose (74-99) mg/dL POC Glucose (mg/dL) 249 H (75-99) mg/dL Urine Appearance Cloudy H (Clear) Urine Blood Moderate H (Negative) Ur Leukocyte Esterase Large H (Negative) Urine RBC 112 H (0-5) /hpf Urine WBC 13 H (0-5) /hpf Urine WBC Clumps Few H (None) /hpf Urine Bacteria Moderate H (None) /hpf Urine Yeast (Budding) Few H (None) /hpf 03/31/20 Range/Units 12:15 RBC (3.80-5.40) m/uL Hgb (11.4-16.0) gm/dL Hct (34.0-46.0) % Lymphocytes # (1.0-4.8) k/uL ABG O2 Saturation (94-97) % Chloride (98-107) mmol/L Carbon Dioxide (22-30) mmol/L BUN (7-17) mg/dL Glucose (74-99) mg/dL POC Glucose (mg/dL) 239 H (75-99) mg/dL Urine Appearance (Clear) Urine Blood (Negative) Ur Leukocyte Esterase (Negative) Urine RBC (0-5) /hpf Urine WBC (0-5) /hpf Urine WBC Clumps (None) /hpf Urine Bacteria (None) /hpf Urine Yeast (Budding) (None) /hpf Microbiology - Last 24 Hours (Table) 03/27/20 15:25 Urine Culture - Final Urine,Clean Catch Tammie glabrata 03/27/20 14:49 Blood Culture - Preliminary Blood No Growth after 72 hours Assessment and Plan Assessment: -Cardiac arrest with underlying rhythm of ventricle fibrillation, with downtime of 10 minutes cardioverted, 1 dose of epinephrine patient presently has a tracheostomy significant anoxic brain injury. Patient remains on the ventilator to support via tracheostomy and presently has a PEG tube, patient is on PEG tube feedings -persistent fevers or patient probably has wondered associated pneumonia and patient is on Zosyn at this time -Acute hypoxic respiratory failure, requiring ventilator support. 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 -Essential hypertension -Hyperlipidemia -Diabetic peripheral neuropathy -Left vocal cord paralysis from intubation -Obesity BMI 33.9 -Consider anoxic brain injury. / encephalopathy.-Slow to respond. Patient remains off sedatives. On IV Keppra. -Secondary pulmonary hypertension -PEG tube placed on March [address] Amador Her overall prognosis is extremely poor the chance of her reasonable neurological recovery is extremely low. Time with Patient: Greater than 30
[2020-04-01] MEDS: IPRATROPIUM-ALBUTEROL 3 ML NEB INHALATION SCH ×6 (03:08→23:37)
[2020-04-01 04:17] LABS: Glucose,Whole Blood 201 mg/dL (75-99)
[2020-04-01 04:35] LABS: Basophils # (A) 0.1 k/uL (0-0.2); Basophils % (A) 1 %; Eosinophils # (A) 0.2 k/uL (0-0.7); Eosinophils % (A) 2 %; HCT 32.5 % (34.0-46.0); HGB 10.5 gm/dL (11.4-16.0); Lymphocytes # (A) 1.4 k/uL (1.0-4.8); Lymphocytes % (A) 14 %; MCH 28.6 pg (25.0-35.0); MCHC 32.3 g/dL (31.0-37.0); MCV 88.7 fL (80.0-100.0); Mean Platelet Volume 8.2; Monocytes # (A) 0.4 k/uL (0-1.0); Monocytes % (A) 4 %; Neutrophils % (A) 79 %; Platelet Count 261 k/uL (150-450); RBC 3.66 m/uL (3.80-5.40); RDW 14.2 % (11.5-15.5); WBC 10.2 k/uL (3.8-10.6)
[2020-04-01 04:40] LABS: ABG Base Excess 2.8 mmol/L; ABG HCO3 27 mmol/L (21-25); ABG Oxygen Saturation 97.8 % (94-97); ABG PCO2 38 mmHg (35-45); ABG PH 7.46 (7.35-7.45); ABG PO2 82 mmHg (83-108); ABG TCO2 28 mmol/L (19-24); Allen Test Performed? Yes
[2020-04-01 04:43] LABS: Potassium 3.7 mmol/L (3.5-5.1)
[2020-04-01] MEDS: HYDROmorphone 1 MG/ML 1 ML SYRINGE IVP PRN (05:17)
[2020-04-01] MEDS: carvediloL 12.5 MG TAB PO SCH ×3 (06:37→18:39)
[2020-04-01] MEDS: LACTATED RINGERS 1,000 ML IV SCH (06:37)
[2020-04-01 07:55] LABS: Glucose,Whole Blood 156 mg/dL (75-99)
[2020-04-01] MEDS ORDERED: POTASSIUM BICARBONATE/CIT AC 20 MEQ TABLET.EFF NG-TUBE SCH (08:00)
[2020-04-01] MEDS: PANTOPRAZOLE 40 MG/10 ML VIAL IVP SCH (08:36)
[2020-04-01] MEDS: CHLORHEXIDINE GLUCONATE 15 ML CUP MUCOUS MEM SCH ×2 (08:37→20:09)
[2020-04-01] MEDS: ASPIRIN 81 MG PO SCH (08:37)
[2020-04-01] MEDS: DOCUSATE ORAL SOLN 100 MG/10 ML CUP PO SCH (08:37)
[2020-04-01] MEDS: lisinopriL 10 MG TAB PO SCH (08:37)
[2020-04-01] MEDS: levETIRAcetam 500 MG TAB PO SCH ×2 (08:37→20:09)
[2020-04-01] MEDS: PRASUGREL 10 MG TAB PO SCH (08:38)
[2020-04-01] MEDS: FUROSEMIDE 10 MG/ML 4 ML VIAL IV SCH (08:38)
[2020-04-01] MEDS: EZETIMIBE 10 MG TAB PO SCH (08:38)
[2020-04-01] MEDS: GABAPENTIN 300 MG CAP PO SCH ×3 (08:38→20:10)
[2020-04-01] MEDS: amLODIPine 10 MG TAB PO SCH (08:38)
--- NOTE | 2020-04-01 09:18 | XR ---
EXAMINATION TYPE: XR chest 1V DATE OF EXAM: 04/01/2020 COMPARISON: Prior chest x-ray 03/31/2020 HISTORY: Patient on ventilator, tracheostomy tube, abnormal chest x-ray TECHNIQUE: Single frontal view of the chest is obtained. FINDINGS: Tracheostomy tube is overlying appropriate position. Right-sided PICC line remains in plac e, distal tip in the right atrium. No evident pneumothorax. Lung volumes are low and the patient is r otated. Aorta is dense. Heart appears enlarged. Interstitium is increased. Bibasilar increased densit y persists. IMPRESSION: Correlate for congestive heart failure, pneumonia not excluded, there may be pleural eff usion.
--- NOTE | 2020-04-01 11:06 | P.PN ---
Subjective Progress Note Date: 04/01/20 The patient was seen at bedside and continues to have no seizure activity. She is currently not on Ventillator today. She continues to be same as yesterday and no improvement in her condition. Objective - Vital Signs Vital signs: Vital Signs Temp 98.8 F 04/01/20 08:00 Pulse 68 04/01/20 10:00 Resp 20 04/01/20 10:00 BP 128/68 04/01/20 10:00 Pulse Ox 95 04/01/20 10:00 Intake & Output 03/31/20 04/01/20 04/01/20 18:59 06:59 18:59 Intake Total 716 828 310 Output Total 1999 695 275 Balance -1284 133 35 Weight 99.7 kg 100.8 kg Intake: IV 260 230 80 0.9% Na 260 230 80 Tube Feeding 366 508 200 Other 90 90 30 Output: Urine 1999 695 275 Other: Voiding Method Indwelling Catheter Indwelling Catheter # Voids 60 ABP, PAP, CO, CI - Last Documented Arterial Blood Pressure 136/50 - Exam Respiratory: She is trach and off Vent today. Clear to auscultation throughout Neurological exam: Limited because of her condition. Higher mental function. Patient is awake but continues to be unresponsive and not following any commands. The pupils are round and 3-4mm bilaterally. Positive corneal reflex bilaterally. There is no facial weakness appreciated bilaterally. Has intact gag reflex Motor: Gait is deferred. Strength could not be assessed because of patient condition. There is no spontaneous movement. No spontaneous movement seen. Sensation to painful stimuli seems intact. With painful stimuli. Upper or lower extremities she'll grimace her face. Reflexes are 1 positive throughout. - Labs CBC & Chem 7: 04/01/20 04:10 04/01/20 04:10 Labs: Abnormal Lab Results - Last 24 Hours (Table) 03/31/20 03/31/20 03/31/20 Range/Units 12:15 16:11 21:14 RBC (3.80-5.40) m/uL Hgb (11.4-16.0) gm/dL Hct (34.0-46.0) % Neutrophils # (1.3-7.7) k/uL ABG pH (7.35-7.45) ABG pO2 (83-108) mmHg ABG HCO3 (21-25) mmol/L ABG Total CO2 (19-24) mmol/L ABG O2 Saturation (94-97) % BUN (7-17) mg/dL Glucose (74-99) mg/dL POC Glucose (mg/dL) 239 H 110 H 193 H (75-99) mg/dL 04/01/20 04/01/20 04/01/20 Range/Units 00:15 04:10 04:10 RBC 3.66 L (3.80-5.40) m/uL Hgb 10.5 L (11.4-16.0) gm/dL Hct 32.5 L (34.0-46.0) % Neutrophils # 8.0 H (1.3-7.7) k/uL ABG pH (7.35-7.45) ABG pO2 (83-108) mmHg ABG HCO3 (21-25) mmol/L ABG Total CO2 (19-24) mmol/L ABG O2 Saturation (94-97) % BUN 22 H (7-17) mg/dL Glucose 195 H (74-99) mg/dL POC Glucose (mg/dL) 163 H (75-99) mg/dL 04/01/20 04/01/20 04/01/20 Range/Units 04:14 04:40 07:52 RBC (3.80-5.40) m/uL Hgb (11.4-16.0) gm/dL Hct (34.0-46.0) % Neutrophils # (1.3-7.7) k/uL ABG pH 7.46 H (7.35-7.45) ABG pO2 82 L (83-108) mmHg ABG HCO3 27 H (21-25) mmol/L ABG Total CO2 28 H (19-24) mmol/L ABG O2 Saturation 97.8 H (94-97) % BUN (7-17) mg/dL Glucose (74-99) mg/dL POC Glucose (mg/dL) 201 H 156 H (75-99) mg/dL Microbiology - Last 24 Hours (Table) 03/27/20 14:49 Blood Culture - Preliminary Blood No Growth after 96 hours 03/31/20 09:50 Urine Culture - Preliminary Urine,Clean Catch Assessment and Plan Assessment: 64-year-old female, who has tracheostomy since March 2019, had a witnessed respiratory arrest followed by cardiac arrest at home, with downtime of about 10 minutes, although patient's daughter stating <5 minutes. Patient is 6 days post cardiac arrest, now showing signs of clinical improvement. * Anoxic brain injury: cardiac arrest for 10 minute---no improvement since I had her for the past 3 days (has intact brainstem only). * Encephalopathy due to above * Acute respiratory failure, * [place] aspiration pneumonia * History of cardiac arrest in October 2018 during cardiac procedure. * History of vocal cord paralysis and previous tracheostomy. * COPD * Diabetes * Hypertension * Mild renal insufficiency. * X tobacco use Plan: * Recommend to avoid any the sedation or opioid as much as possible. * Repeated computed tomography scan of the head 03/24/2020, revealed no acute process, no cerebral edema or CVA. * Repeat EEG 03/23/2020 revealed diffuse slowing in moderate to high amplitude delta range, consistent with severe encephalopathy. No epileptiform activity was seen on this study. * Repeat EEG on 03/27/2020 showed no epileptiform activity. The background improved at. * Continue Keppra 500 mg twice a day (adjusted to her renal functions). * Continue Neurontin 300 mg 3 times a day based upon her renal functions. * As a result of the cardiac arrest the patient suffered which seem a significant brain injury. Patient does have intact brainstem reflexes but I think the patient will be dependent on others for assistance if there are any improvement. * Patient CODE STATUS is full code per family. * [facility] will [facility] and pending insurance authorization We'll continue to follow Time with Patient: Less than 30
[2020-04-01 11:49] LABS: Glucose,Whole Blood 274 mg/dL (75-99)
--- NOTE | 2020-04-01 12:29 | P.PN ---
Subjective Progress Note Date: 04/01/20 64-year-old male patient with known history of coronary artery disease and previous cardiac arrest that goes back in October 2018. At that time the patient had an elective cardiac catheterization and the patient was found to have mild LAD lesion. During the procedure, the patient went into a cardiac arrest and angioplasty was performed. However, the patient developed profound hypotension and went into a PEA rhythm. At that time the patient had a cardiac arrest for a total of 60 minutes in the [place]. During that time, the patient had a stent to the LAD and the patient was resuscitated and Levaquin prescription assisted device was inserted and the patient was eventually transferred to the intensive care unit. The patient prolonged course of intubation mechanical ventilation and ultimately the patient was discharged on 10/17/2019. At that time, the patient is systolic heart failure with an ejection fraction of 35%. The patient also known to have COPD and possibly a left cord paralysis as the patient had intermittent episodes of stridor. The patient was again seen as an inpatient on 03/23/2019 at that time he was having shortness of breath and stridor and eventually the patient a tracheostomy tube placed. His tracheostomy was done on 05/14/2019 at [facility]. The patient was brought him back to the hospital on 03/20/2020 for another episode of cardiopulmonary arrest. Apparently the patient was found to be unresponsive and the scene and the patient collapsed and she was pulseless. She was in ventricular fibrillation. She was given epinephrine and she was shocked/defibrillator. CPR was numb for a total of 5 minutes and following that there was a spontaneous return of circulation. The patient was brought into the hospital unresponsive. CAT scan of the brain was negative. Comorbidities include diabetes mellitus, hypertension, hyperlipidemia, coronary artery disease, diabetes mellitus related peripheral neuropathy and as mentioned previous history of cardiac arrest that occurred in October 2018. During this current admission, the patient had insertion of a PEG tube. She remains on a mechanical ventilator. . The patient has anoxic encephalopathy with the latest EEG that was done on 03/27/2020 showing abnormal EEG with moderate slowing in generalized cerebral dysfunction without any seizure. The echocardiogram was done on 03/22/2020 showed improvement in function with an ejection fraction of 60-65% and there was no valvular abnormalities noted. The patient had a picc line in the RUE. The patient is covered with IV Zosyn for possible aspiration pneumonia. The patient is currently on D5 water. The patient is on Cleviprex 1 mg an hour from BP control. The patient remains on a mechanical ventilator. The patient has a #[address]. This morning the patient is on assist control mode at the rate of 24 with a tidal volume of 650 and FiO2 of 35% with a PEEP of 5. The blood gases from this morning showed a pH of 7.44 with a pCO2 of 39 and pO2 of 74 and the chest x-ray shows some limited atelectatic changes in lung bases and the tracheostomy tube was in a good location. The patient is on D5 water infusion at the rate of 75 mL an hour and sodium level is improving is down to 138. The patient was taken to the operating room by general surgery. An attempt was done to revise a tracheostomy tube and it failed. The patient was not able to get intubated by anesthesia as there was significant narrowing and the intubation process failed even with a smaller bronchoscope. Based on that, the procedure got canceled. The patient remains off sedation. The patient is withdrawing only to deep painful stimulation. She will occasionally get emesis. She does not follow any commands. No purposeful movement at this point in time. On 03/30/2020, the patient is still off sedation, still encephalopathic and this is attributed to hypoxic encephalopathy. The patient earlier this morning was on a mechanical ventilator. I took her off the mechanical ventilator and I put the patient a trach collar and the patient did well without any major difficulties. She was placed on a 40% trach collar. She is able to cough and she is able to clear respiratory secretions. The patient does not have any major respiratory secretions. Earlier this morning, she wasn't an FiO2 of 35% with a PEEP of 5 and I was able to switch her and transition her to a trach collar. She is tolerating her enteral feeding for nutritional support. She is on limited stable. IV fluids are running at 75 mL an hour. No fever. No chills. No aspiration. Chest x-ray from today is showing adequate positioning of the tracheostomy tube and there is also some mild improved aeration on the bilateral lungs and there is some limited infiltration of the lung bases bilaterally. The patient is currently off the clevidipine drip and the blood pressures under better control at the patient is receiving a combination of Zestril and Coreg. The patient is continuing the course of antibiotics and IV Zosyn. IV fluids were running at 75 mL an hour and I cut it down to 20 mL an hour as maintenance. No other significant events. I also performed a bedside bronchoscopy on this patient in the upper airway inspection showed that the pat jamesnt's cords were not fully functional. There was some mobility with abduction yet the extent of adduction was not enough for me to pass my bronchoscope past the vocal cords. There may be also some underlying subglottic stenosis which I was unable to visualize. 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 Currently the patient has a #[address]iley [address] tube in [address]. 03/31/2020, the patient continues to have signs of anoxic encephalopathy. the patient is unresponsive. The patient was on a assist-control mode of ventilation with a tidal volume of 350 and the rate of 24 with an FiO2 of 35% and a PEEP of 5. I switched her to 35% trach collar. She is in a positive fluid balance. The input output balance was +2.3 L over the past 24 hours and the patient is receiving enteral feeding for nutritional support and she is on vital high protein at the rate of 34 mL an hour. She has completed the course of IV Zosyn. No respiratory secretions. Tracheostomy tube is in place. We are still awaiting clearance and insurance authorization to transfer this patient to [facility]. The patient has no seizure activity. Remains unresponsive. Opens her eyes spontaneously. Does not follow any commands. She is getting more contracted an upper and lower extremities. Her next images are also edematous. She is taking no sedation for now. 04/01/2020, the patient is on 35% trach collar. She is quite comfortable. Neurologically no improvement. No purposeful movement. No response pH opens up her eyes. She has an adequate cough. She is tolerating her enteral feeding for nutritional support. She is afebrile. She is of Zosyn. She is making good ur ine output and the patient is being diuresis with Lasix 40 g IV every 24 hours in that fluid balance is -1.1 L over the past 24 hours. Enterofeeding is in the form of vital high protein 1.2 at the rate of 50 mL an hour. No other significant events overnight. No respiratory secretions. Chest x-ray findings and essentially unchanged and the patient is likely going to a alf locally. I'm willing to make recommendations to move this patient today medical floor for another 24 hours of monitoring. Objective - Vital Signs Vital signs: Vital Signs Temp 98.8 F 04/01/20 08:00 Pulse 75 04/01/20 11:20 Resp 26 H 04/01/20 11:00 BP 125/66 04/01/20 11:00 Pulse Ox 95 04/01/20 11:00 Intake & Output 03/31/20 04/01/20 04/01/20 18:59 06:59 18:59 Intake Total 716 828 310 Output Total 1999 695 275 Balance -1284 133 35 Weight 99.7 kg 100.8 kg Intake: IV 260 230 80 0.9% Na 260 230 80 Tube Feeding 366 508 200 Other 90 90 30 Output: Urine 1999 695 275 Other: Voiding Method Indwelling Catheter Indwelling Catheter Indwelling Catheter # Voids 60 ABP, PAP, CO, CI - Last Documented Arterial Blood Pressure 136/50 - Exam Gen. appearance the patient is calm and comfortable, not responsive, currently she is down to 35% trach collar. Head exam was generally normal. There was no scleral icterus or corneal arcus. Mucous membranes were moist. Neck was supple and without jugular venous distension, thyromegaly, or carotid bruits. Carotids were easily palpable bilaterally. There was no adenopathy.the patient is a tracheostomy tube in place and the patient has a #4 Shiley tracheostomy tube in place. Cardiac exam revealed the PMI to be normally situated and sized. The rhythm was regular and no extrasystoles were noted during several minutes of auscultation. The first and second heart sounds were normal and physiologic splitting of the second heart sound was noted. There were no murmurs, rubs, clicks, or gallops. Lungs sounds are diminished and the patient is some few scattered rhonchi and somewhat coarse. No wheezes or crackles. Breath sounds are equal and symmetrical at this point in time. Abdominal exam revealed normal bowel sounds. The abdomen was soft, non-tender, and without masses, organomegaly, or appreciable enlargement of the abdominal aorta.. The patient has a PEG tube in place and the patient is a colostomy Examination of the extremities revealed easily palpable radial, femoral and pedal pulses. There was no cyanosis, clubbing or edema. Examination of the skin revealed no evidence of significant rashes, suspicious appearing nevi or other concerning lesions. Neurologically the patient is nonverbal and the patient is not responsive to any verbal or painful stimulation. Neurologic exam is essentially unchanged compared to yesterday. Motor and sensory function cannot be assessed. The patient may grimace and do some slight withdrawing to deep painful stimulation to her upper extremity. Otherwise, she doesn't following commands. No nystagmus. No preferential gaze. - Labs CBC & Chem 7: 04/01/20 04:10 04/01/20 04:10 Labs: Abnormal Lab Results - Last 24 Hours (Table) 03/31/20 03/31/20 04/01/20 Range/Units 16:11 21:14 00:15 RBC (3.80-5.40) m/uL Hgb (11.4-16.0) gm/dL Hct (34.0-46.0) % Neutrophils # (1.3-7.7) k/uL ABG pH (7.35-7.45) ABG pO2 (83-108) mmHg ABG HCO3 (21-25) mmol/L ABG Total CO2 (19-24) mmol/L ABG O2 Saturation (94-97) % BUN (7-17) mg/dL Glucose (74-99) mg/dL POC Glucose (mg/dL) 110 H 193 H 163 H (75-99) mg/dL 04/01/20 04/01/20 04/01/20 Range/Units 04:10 04:10 04:14 RBC 3.66 L (3.80-5.40) m/uL Hgb 10.5 L (11.4-16.0) gm/dL Hct 32.5 L (34.0-46.0) % Neutrophils # 8.0 H (1.3-7.7) k/uL ABG pH (7.35-7.45) ABG pO2 (83-108) mmHg ABG HCO3 (21-25) mmol/L ABG Total CO2 (19-24) mmol/L ABG O2 Saturation (94-97) % BUN 22 H (7-17) mg/dL Glucose 195 H (74-99) mg/dL POC Glucose (mg/dL) 201 H (75-99) mg/dL 04/01/20 04/01/20 04/01/20 Range/Units 04:40 07:52 11:48 RBC (3.80-5.40) m/uL Hgb (11.4-16.0) gm/dL Hct (34.0-46.0) % Neutrophils # (1.3-7.7) k/uL ABG pH 7.46 H (7.35-7.45) ABG pO2 82 L (83-108) mmHg ABG HCO3 27 H (21-25) mmol/L ABG Total CO2 28 H (19-24) mmol/L ABG O2 Saturation 97.8 H (94-97) % BUN (7-17) mg/dL Glucose (74-99) mg/dL POC Glucose (mg/dL) 156 H 274 H (75-99) mg/dL Microbiology - Last 24 Hours (Table) 03/27/20 14:49 Blood Culture - Preliminary Blood No Growth after 96 hours 03/31/20 09:50 Urine Culture - Preliminary Urine,Clean Catch Assessment and Plan Plan: 1 anoxic encephalopathy secondary to cardiopulmonary arrest. We feel that this was a pulmonary arrest followed by a cardiac arrest as the patient was found to have a documented of [id number] cardiac pulmonary arrest secondary to ventricular fibrillation/PEA rhythm. The patient is on them of at least 10 minutes she can return of ventilation. I suspect that the patient probably had a respiratory arrest related to a complication of her airways as the patient was found to have significant narrowing in her upper airway to the point where the patient had failed a revision of a tracheostomy tube. I further did an upper airway inspection on this patient on 03/30/2020 and the patient did not have full mobility and adduction of the vocal cords and I was unable to pass the bronchoscope through the vocal cords and I also suspect a possibility of subglottic stenosis in addition to weakness/paralysis of the vocal cords. As such, I would suggest keeping the tracheostomy tube in place. The patient continues to have signs of hypoxic/anoxic encephalopathy without any interval improvement and she remains to be unresponsive. No significant change in her neurologic status. Nevertheless, the patient has some brainstem reflexes and the patient was placed on trach collar. She has adequate ability to do pulmonary toileting. 2 anoxic encephalopathy secondary to above, the patient continues to be deeply encephalopathic, unresponsive to any verbal stimulation, may withdrawal or grimace to deep painful stimulation and her overall neurologic function have remained unchanged over the past 72 hours. 3 chronic respiratory failure, hypoxic in nature and the patient has a tracheostomy tube in place, and this is a #4 shotty tracheostomy tube. A bronchoscopy and upper airway inspection was done. Consider the possibility of a severe subglottic stenosis probably related to previous tracheostomy tube insertion and probably related to previous intubation. The patient is also suspected to have a vocal cord paralysis as the patient was not found to have complete ability to abduct the vocal cords.. Currently the patient has a #4 tracheostomy tube insertion that was placed at a time of her cardiac arrest. The patient was taken off the mechanical ventilator and the patient is currently on 35% tracheostomy collar. Note that overnight she was still A Assist-Control Mode of Ventilation Earlier This Morning Show a Trach Collar. 4 PEG tube for enteral feeding and nutritional support, postop day # 6 5 possible aspiration pneumonia currently on IV Zosyn, completed the course of the chest x-ray findings are essentially stable 6 history of ischemic cardiomyopathy with a recent echocardiogram showed improvement in LV function with normalization of the LV 7 history of previous tracheostomy tube insertion, inserted for stridor and re spiratory difficulty, requiring insertion and removal of tracheostomy tube. 8 COPD 9 coronary artery disease with previous stenting of the LAD 1o previous history of cardiac arrest from 2008 11 Hypertension and the blood pressure is under better control for now. 12 diabetic peripheral neuropathy 13 hypernatremia, improved, currently on normal saline infusion and the fluid rate will be cut down to KVO. The patient is currently being diuresed and the patient is a negative fluid balance of 1.1 L over the past 24 hours. Plan IV fluids to 20 mL an hour Lasix 40 mg IV every 24 hours Keep the patient on a trach collar 35% Continue enteral feeding for nutritional support through the PEG tube The patient continues to have severe encephalopathy related to hypoxic encephalopathy. There is no interval improvement in his neurologic functions We'll continue the supportive care, including enteral feeding for nutritional support We'll continue to follow, we'll transfer this patient to medical floor. Ultimately plan is to transfer her to a alf with her tracheostomy tube in place.
--- NOTE | 2020-04-01 13:50 | P.PN ---
Subjective Progress Note Date: 04/01/20 CHIEF COMPLAINT: Cardiopulmonary arrest HISTORY OF PRESENT ILLNESS: Patient is a remains in the ICU. She is status post PEG tube placement she is tolerating tube feeds. Tube feedings are currently at 50 ml/hour. Afebrile. WBC 10.2 PHYSICAL EXAM: VITAL SIGNS: Reviewed. GENERAL: Well-developed in no acute distress. HEENT: No sclera icterus. Extraocular movements grossly intact. Moist buccal mucosa. Head is atraumatic, normocephalic. ABDOMEN: Soft. Nondistended. Nontender. PEG tube site clean dry and intact NEUROLOGIC: Not responsive ASSESSMENT: 1. Status post out of hospital cardiopulmonary arrest 2. Status post mechanical ventilation with insertion of a pediatric tracheostomy tube and a prior tracheostoma site for hypoxic respiratory failure 3. Severe protein calorie malnutrition Status post PEG tube placement 3. Anoxic encephalopathy 4. History of vocal cord paralysis and previous tracheostomy 5. Possible aspiration pneumonia 6. Acute systolic CHF exacerbation 7. History of coronary artery disease with cardiac stents PLAN: -Continue to titrate tube feedings to goal -Continue ICU management Physician Prescription Eyeglass Maker note has been reviewed by physician. Signing provider agrees with the documented findings, assessment, and plan of care. Objective - Vital Signs Vital signs: Vital Signs Temp 98.6 F 04/01/20 12:00 Pulse 80 04/01/20 12:00 Resp 21 04/01/20 12:00 BP 121/65 04/01/20 12:00 Pulse Ox 95 04/01/20 12:00 Intake & Output 03/31/20 04/01/20 04/01/20 18:59 06:59 18:59 Intake Total 716 828 450 Output Total 1999 695 925 Balance -1284 133 -475 Weight 99.7 kg 100.8 kg Intake: IV 260 230 120 0.9% Na 260 230 120 Tube Feeding 366 508 300 Other 90 90 30 Output: Urine 1999 695 925 Other: Voiding Method Indwelling Catheter Indwelling Catheter Indwelling Catheter # Voids 60 ABP, PAP, CO, CI - Last Documented Arterial Blood Pressure 136/50 - Labs CBC & Chem 7: 04/01/20 04:10 04/01/20 04:10 Labs: Abnormal Lab Results - Last 24 Hours (Table) 03/31/20 03/31/20 04/01/20 Range/Units 16:11 21:14 00:15 RBC (3.80-5.40) m/uL Hgb (11.4-16.0) gm/dL Hct (34.0-46.0) % Neutrophils # (1.3-7.7) k/uL ABG pH (7.35-7.45) ABG pO2 (83-108) mmHg ABG HCO3 (21-25) mmol/L ABG Total CO2 (19-24) mmol/L ABG O2 Saturation (94-97) % BUN (7-17) mg/dL Glucose (74-99) mg/dL POC Glucose (mg/dL) 110 H 193 H 163 H (75-99) mg/dL 04/01/20 04/01/20 04/01/20 Range/Units 04:10 04:10 04:14 RBC 3.66 L (3.80-5.40) m/uL Hgb 10.5 L (11.4-16.0) gm/dL Hct 32.5 L (34.0-46.0) % Neutrophils # 8.0 H (1.3-7.7) k/uL ABG pH (7.35-7.45) ABG pO2 (83-108) mmHg ABG HCO3 (21-25) mmol/L ABG Total CO2 (19-24) mmol/L ABG O2 Saturation (94-97) % BUN 22 H (7-17) mg/dL Glucose 195 H (74-99) mg/dL POC Glucose (mg/dL) 201 H (75-99) mg/dL 04/01/20 04/01/20 04/01/20 Range/Units 04:40 07:52 11:48 RBC (3.80-5.40) m/uL Hgb (11.4-16.0) gm/dL Hct (34.0-46.0) % Neutrophils # (1.3-7.7) k/uL ABG pH 7.46 H (7.35-7.45) ABG pO2 82 L (83-108) mmHg ABG HCO3 27 H (21-25) mmol/L ABG Total CO2 28 H (19-24) mmol/L ABG O2 Saturation 97.8 H (94-97) % BUN (7-17) mg/dL Glucose (74-99) mg/dL POC Glucose (mg/dL) 156 H 274 H (75-99) mg/dL Microbiology - Last 24 Hours (Table) 03/27/20 14:49 Blood Culture - Preliminary Blood No Growth after 96 hours 03/31/20 09:50 Urine Culture - Preliminary Urine,Clean Catch
[2020-04-01] MEDS ORDERED: LACTULOSE 20 GM/30 ML CUP PO ONE (14:48)
[2020-04-01 16:06] LABS: Glucose,Whole Blood 294 mg/dL (75-99)
[2020-04-01] MEDS: SODIUM CHLORIDE 0.9% 1,000 ML IV SCH (16:06)
--- NOTE | 2020-04-01 16:47 | P.PN ---
Progress Note - Text Progress Note Date: 04/01/20 Chief Complaint: Decreased responsiveness History of presenting complaint: This is a 64-year-old patient of Dr. Finley. Chronic stable medical conditions include hypertension, hyperlipidemia, diabetic peripheral neuropathy. was in the hospital in October 2018 having cardiac arrest following LAD angioplasty. Also pulmonary [id number] was felt a left vocal cord paralysis probably from intubation. Patient was brought in by the EMS. Family had called closure short of breath. While they were on the phone vacation became unresponsive and collapsed into the bed. Then begin using a bag valve mask ventilation. When the EMS arrived patient was unresponsive she also went into ventricular fibrillation. She received 1 mg of epinephrine 1 shock and patient then came around. Downtime was about 10 minutes. Patient is in the ICU. On the ventilator. FiO2 50% and a PEEP of 5. Patient is on IV propofol and norepinephrine. Telemetry shows sinus rhythm. Has an NG tube. Per cardiology notes her EF is 35%. In the past. admitted with-cardiac arrest with underlying rhythm of ventricular fibrillation the downtime of tenderness, cardioverted, acute hypoxic respiratory failure on the ventilator, acute CHF exacerbation, lactic acidosis likely type II, aspiration pneumonia, and acute COPD exacerbation.started on IV Zosyn, IV Solu- Medrol. Initially intubated. Put on Cleviprex drip for blood pressure. Based on EEG placed on IV Keppra per neurology. Dose of Neurontin scaled back. Because of renal failure. Had a PEG tube placed. [id number] trach collar. Tube feeding at goal.Not purposeful movements. Review of systems:-Patient and anoxic brain injury Active Medications Acetaminophen (Acetaminophen Tab 325 Mg Tab) 650 mg PO Q4HR PRN PRN Reason: Fever and/or Mild Pain Last Admin: 03/31/20 09:16 Dose: 650 mg Documented by: Albuterol/Ipratropium (Ipratropium-Albuterol 3 Ml Neb) 3 ml INHALATION RT-Q4H [facility] Last Admin: 04/01/20 15:40 Dose: 3 ml Documented by: Albuterol/Ipratropium (Ipratropium-Albuterol 3 Ml Neb) 3 ml INHALATION RT-Q2H PRN PRN Reason: Shortness Of Breath Or Wheezing Amlodipine Besylate (Amlodipine 10 Mg Tab) 10 mg PO DAILY [facility] Last Admin: 04/01/20 08:38 Dose: 10 mg Documented by: Aspirin (Aspirin 81 Mg) 81 mg PO DAILY [facility] Last Admin: 04/01/20 08:37 Dose: 81 mg Documented by: Carvedilol (Carvedilol 12.5 Mg Tab) 12.5 mg PO BID-W/MEALS [facility] Last Admin: 04/01/20 08:38 Dose: 12.5 mg Documented by: Chlorhexidine Gluconate (Chlorhexidine Gluconate 15 Ml Cup) 15 ml MUCOUS MEM BID [facility] Last Admin: 04/01/20 08:37 Dose: 15 ml Documented by: Docusate Sodium (Docusate Oral Soln 100 Mg/10 Ml Cup) 100 mg PO DAILY [facility] Last Admin: 04/01/20 08:37 Dose: 100 mg Documented by: Ezetimibe (Ezetimibe 10 Mg Tab) 10 mg PO DAILY [facility] Last Admin: 04/01/20 08:38 Dose: 10 mg Documented by: Furosemide (Furosemide 10 Mg/Ml 4 Ml Vial) 40 mg IV DAILY [facility] Last Admin: 04/01/20 08:38 Dose: 40 mg Documented by: Gabapentin (Gabapentin 300 Mg Cap) 300 mg PO TID [facility] Last Admin: 04/01/20 16:08 Dose: 300 mg Documented by: Heparin Sodium (Porcine) (Heparin Sodium,Porcine 5,000 Unit/Ml 1 Ml Vial) 5,000 unit SQ Q8HR [facility] Last Admin: 04/01/20 16:09 Dose: 5,000 unit Documented by: Hydromorphone HCl (Hydromorphone 0.5 Mg/0.5 Ml Syringe) 0.5 mg IVP Q6HR PRN PRN Reason: Pain Last Admin: 03/26/20 18:40 Dose: 0.5 mg Documented by: Hydromorphone HCl (Hydromorphone 1 Mg/Ml 1 Ml Syringe) 1 mg IVP Q6HR PRN PRN Reason: Pain Last Admin: 04/01/20 05:17 Dose: 1 mg Documented by: Sodium Chloride (Saline 0.9%) 1,000 mls @ 20 mls/hr IV .Q24H [facility] Last Admin: 04/01/20 16:06 Dose: 20 mls/hr Documented by: Lactated Ringer's (Lactated Ringers) 1,000 mls @ 20 mls/hr IV .Q24H [facility] Last Admin: 04/01/20 06:37 Dose: Not Given Documented by: Insulin Aspart (Insulin Aspart (Novolog) 100 Unit/Ml Vial) 0 unit SQ Q4H [facility]; Protocol Last Admin: 04/01/20 16:09 Dose: 11 unit Documented by: Insulin Detemir (Insulin Detemir (Levemir) 100 Unit/Ml Syr) 16 unit [address]Q [facility] Levetiracetam (Levetiracetam 500 Mg Tab) 500 mg PO Q12HR [facility] Last Admin: 04/01/20 08:37 Dose: 500 mg Documented by: Lisinopril (Lisinopril 10 Mg Tab) 10 mg PO DAILY [facility] Last Admin: 04/01/20 08:37 Dose: 10 mg Documented by: Lorazepam (Lorazepam 2 Mg/Ml Inj) 1 mg IV Q4HR PRN PRN Reason: Seizures Last Admin: 03/26/20 18:52 Dose: 1 mg Documented by: Miscellaneous Information (Potassium Replacement Protocol 1 Each Misc) 1 each MISCELLANE DAILY PRN; Protocol PRN Reason: Per Protocol Miscellaneous Information (Magnesium Replacement Protocol 1 Each Misc) 1 each MISCELLANE DAILY PRN; Protocol PRN Reason: Per Protocol Miscellaneous Information (Potassium Replacement Protocol 1 Each Misc) 1 each MISCELLANE DAILY PRN; Protocol PRN Reason: Per Protocol Naloxone HCl (Naloxone 0.4 Mg/Ml 1 Ml Vial) 0.2 mg IV Q2M PRN PRN Reason: Opioid Reversal Pantoprazole Sodium (Pantoprazole 40 Mg/10 Ml Vial) 40 mg IVP DAILY [facility] Last Admin: 04/01/20 08:36 Dose: 40 mg Documented by: Prasugrel (Prasugrel 10 Mg Tab) 10 mg PO DAILY [facility] Last Admin: 04/01/20 08:38 Dose: 10 mg Documented by: Senna (Sennosides 8.6 Mg Tab) 8.6 mg PO BID PRN PRN Reason: Constipation Last Admin: 03/31/20 09:15 Dose: 8.6 mg Documented by: Physical examination: VITAL SIGNS: 98.4, 79, 16, 140/63, 98% on trach: 35% GENERAL: laying in bed, EYES: Pupils equal. Conjunctiva normal. NECK: JVD unable to assess, masses not palpable.stoma with the tracheostomy trach collar HEART: First and second heart sounds are normal; no edema. LUNGS: Respiratory rate increased, decreased breath sounds ABDOMEN: Soft, nontender, liver spleen not palpable, no masses palpable. PSYCH: Unable to assess NEUROLOGICAL: Nonpurposeful movement to painful stimuli with some facial grimacing INVESTIGATIONS, reviewed in the clinical context: White count 10.2 hemoglobin 10.5 platelets 261 potassium 3.7 creatinine 0.96 Chest x-ray possibly some infiltrate 2-D echocardiogram-EF 60-65%, mild to moderate pulmonary hypertension Repeat EEG-March 23-showing generalized cerebral dysfunction EEG suggestive of generalized cerebral dysfunction Admission testing White count 10.1 hemoglobin 13.4 platelets 293 potassium 5.8 bicarb 17 bun 42 creatinine 1.81 blood glucose 458 lactic acid 8.1 Troponin I less than 0.012, 0.056,0.085 EKG tracing personally reviewed by me-sinus rhythm low-voltage right bundle branch block pattern Computed tomography scan of the brain-negative Chest x-ray film personally reviewed by me-portable cardiomegaly venous prominence Assessment: -Cardiac arrest with underlying rhythm of ventricle fibrillation, with downtime of 10 minutes cardioverted, 1 dose of epinephrine -Acute hypoxic respiratory failure, requiring ventilator support-slow to respond -Acute on chronic congestive heart failure exacerbation from systolic dysfunction EF 25% -Lactic acidosis most likely type II. Cannot rule out infectious process. -Possible aspiration pneumonia -Acute COPD exacerbation in an ex-smoker, exposed to secondhand smoking-slow to respond -Possible tracheal stenosis following intubation -History of cardiac arrest following stenting to LAD -Coronary artery disease with stent to LAD -Diabetes mellitus 2 uncontrolled with hyper glycemia on insulin drip secondary to steroids -Essential hypertension -Hyperlipidemia -Diabetic peripheral neuropathy -Left vocal cord paralysis from intubation -Obesity BMI 33.9 -Consider anoxic brain injury. / encephalopathy.-Slow to respond. -Secondary pulmonary hypertension -PEG tube placed today March [address] Amador Plan: Continue current medication treatment plan. Supportive care. Prognosis guarded
[2020-04-01] MEDS ORDERED: NA PHOS,M-B/NA PHOS,DI-BA 133 ML ENEMA RECTAL ONE (19:00)
[2020-04-01 20:01] LABS: Glucose,Whole Blood 198 mg/dL (75-99)
[2020-04-01] MEDS ORDERED: INSULIN DETEMIR (LEVEMIR) 100 UNIT/ML SYR SQ SCH (21:00)
[2020-04-02 00:07] LABS: Glucose,Whole Blood 272 mg/dL (75-99)
[2020-04-02] MEDS: INSULIN ASPART (NovoLOG) 100 UNIT/ML VIAL SQ SCH ×7 (00:20→23:51)
[2020-04-02] MEDS: HEPARIN SODIUM,PORCINE 5,000 UNIT/ML 1 ML VIAL SQ SCH ×4 (00:20→23:51)
[2020-04-02] MEDS: IPRATROPIUM-ALBUTEROL 3 ML NEB INHALATION SCH ×5 (03:29→18:58)
[2020-04-02 04:08] LABS: Glucose,Whole Blood 219 mg/dL (75-99)
[2020-04-02] MEDS: LACTATED RINGERS 1,000 ML IV SCH (04:49)
[2020-04-02] MEDS: carvediloL 12.5 MG TAB PO SCH ×2 (06:58→19:02)
[2020-04-02 07:40] LABS: Glucose,Whole Blood 217 mg/dL (75-99)
[2020-04-02 07:58] LABS: Basophils % (A) 0 %; Eosinophils # (A) 0.2 k/uL (0-0.7); Eosinophils % (A) 2 %; HCT 31.3 % (34.0-46.0); HGB 10.1 gm/dL (11.4-16.0); Lymphocytes # (A) 1.1 k/uL (1.0-4.8); Lymphocytes % (A) 10 %; MCH 28.5 pg (25.0-35.0); MCHC 32.2 g/dL (31.0-37.0); MCV 88.6 fL (80.0-100.0); Mean Platelet Volume 8.5; Monocytes # (A) 0.4 k/uL (0-1.0); Monocytes % (A) 4 %; Neutrophils # (A) 9.2 k/uL (1.3-7.7); Neutrophils % (A) 83 %; Platelet Count 283 k/uL (150-450); RBC 3.54 m/uL (3.80-5.40); RDW 14.5 % (11.5-15.5); WBC 11.1 k/uL (3.8-10.6)
[2020-04-02 08:11] LABS: Calcium 8.9 mg/dL (8.4-10.2); Potassium 3.7 mmol/L (3.5-5.1)
--- NOTE | 2020-04-02 08:20 | XR ---
EXAMINATION TYPE: XR chest 1V DATE OF EXAM: 04/02/2020 COMPARISON: Prior chest x-ray 04/01/2020 HISTORY: Tracheostomy tube, abnormal chest x-ray TECHNIQUE: Single frontal view of the chest is obtained. FINDINGS: There is some improved visualization of the left hemidiaphragm. No other significant inter sapna change. Tracheostomy tube is overlying the tracheal air column. There is no pneumothorax. Right-s ided PICC line is stable. Heart size interstitial changes are again noted. IMPRESSION: Some interval improved aeration at the left lung base.
[2020-04-02] MEDS: PANTOPRAZOLE 40 MG/10 ML VIAL IVP SCH (09:27)
[2020-04-02] MEDS: FUROSEMIDE 10 MG/ML 4 ML VIAL IV SCH (09:28)
[2020-04-02] MEDS: DOCUSATE ORAL SOLN 100 MG/10 ML CUP PO SCH (09:30)
[2020-04-02] MEDS: ASPIRIN 81 MG PO SCH (09:30)
[2020-04-02] MEDS: lisinopriL 10 MG TAB PO SCH (09:30)
[2020-04-02] MEDS: amLODIPine 10 MG TAB PO SCH (09:30)
[2020-04-02] MEDS: EZETIMIBE 10 MG TAB PO SCH (09:30)
[2020-04-02] MEDS: GABAPENTIN 300 MG CAP PO SCH ×3 (09:30→20:58)
[2020-04-02] MEDS: levETIRAcetam 500 MG TAB PO SCH ×2 (09:30→20:58)
[2020-04-02] MEDS: CHLORHEXIDINE GLUCONATE 15 ML CUP MUCOUS MEM SCH (09:30)
[2020-04-02] MEDS: PRASUGREL 10 MG TAB PO SCH (09:30)
[2020-04-02] MEDS ORDERED: POTASSIUM BICARBONATE/CIT AC 20 MEQ TABLET.EFF NG-TUBE SCH (10:00)
--- NOTE | 2020-04-02 12:28 | P.PN ---
Subjective Progress Note Date: 04/02/20 64-year-old male patient with known history of coronary artery disease and previous cardiac arrest that goes back in October 2018. At that time the patient had an elective cardiac catheterization and the patient was found to have mild LAD lesion. During the procedure, the patient went into a cardiac arrest and angioplasty was performed. However, the patient developed profound hypotension and went into a PEA rhythm. At that time the patient had a cardiac arrest for a total of 60 minutes in the [facility]. During that time, the patient had a stent to the LAD and the patient was resuscitated and Levaquin prescription assisted device was inserted and the patient was eventually transferred to the intensive care unit. The patient prolonged course of intubation mechanical ventilation and ultimately the patient was discharged on 10/17/2019. At that time, the patient is systolic heart failure with an ejection fraction of 35%. The patient also known to have COPD and possibly a left cord paralysis as the patient had intermittent episodes of stridor. The patient was again seen as an inpatient on 03/23/2019 at that time he was having shortness of breath and stridor and eventually the patient a tracheostomy tube placed. His tracheostomy was done on 05/14/2019 at [facility]. The patient was brought him back to the hospital on 03/20/2020 for another episode of cardiopulmonary arrest. Apparently the patient was found to be unresponsive and the scene and the patient collapsed and she was pulseless. She was in ventricular fibrillation. She was given epinephrine and she was shocked/defibrillator. CPR was numb for a total of 5 minutes and following that there was a spontaneous return of circulation. The patient was brought into the hospital unresponsive. CAT scan of the brain was negative. Comorbidities include diabetes mellitus, hypertension, hyperlipidemia, coronary artery disease, diabetes mellitus related peripheral neuropathy and as mentioned previous history of cardiac arrest that occurred in October 2018. During this current admission, the patient had insertion of a PEG tube. She remains on a mechanical ventilator. . The patient has anoxic encephalopathy with the latest EEG that was done on 03/27/2020 showing abnormal EEG with moderate slowing in generalized cerebral dysfunction without any seizure. The echocardiogram was done on 03/22/2020 showed improvement in function with an ejection fraction of 60-65% and there was no valvular abnormalities noted. The patient had a picc line in the RUE. The patient is covered with IV Zosyn for possible aspiration pneumonia. The patient is currently on D5 water. The patient is on Cleviprex 1 mg an hour from BP control. The patient remains on a mechanical ventilator. The patient has a #[address]. This morning the patient is on assist control mode at the rate of 24 with a tidal volume of 650 and FiO2 of 35% with a PEEP of 5. The blood gases from this morning showed a pH of 7.44 with a pCO2 of 39 and pO2 of 74 and the chest x-ray shows some limited atelectatic changes in lung bases and the tracheostomy tube was in a good location. The patient is on D5 water infusion at the rate of 75 mL an hour and sodium level is improving is down to 138. The patient was taken to the operating room by general surgery. An attempt was done to revise a tracheostomy tube and it failed. The patient was not able to get intubated by anesthesia as there was significant narrowing and the intubation process failed even with a smaller bronchoscope. Based on that, the procedure got canceled. The patient remains off sedation. The patient is withdrawing only to deep painful stimulation. She will occasionally get emesis. She does not follow any commands. No purposeful movement at this point in time. On 03/30/2020, the patient is still off sedation, still encephalopathic and this is attributed to hypoxic encephalopathy. The patient earlier this morning was on a mechanical ventilator. I took her off the mechanical ventilator and I put the patient a trach collar and the patient did well without any major difficulties. She was placed on a 40% trach collar. She is able to cough and she is able to clear respiratory secretions. The patient does not have any major respiratory secretions. Earlier this morning, she wasn't an FiO2 of 35% with a PEEP of 5 and I was able to switch her and transition her to a trach collar. She is tolerating her enteral feeding for nutritional support. She is on limited stable. IV fluids are running at 75 mL an hour. No fever. No chills. No aspiration. Chest x-ray from today is showing adequate positioning of the tracheostomy tube and there is also some mild improved aeration on the bilateral lungs and there is some limited infiltration of the lung bases bilaterally. The patient is currently off the clevidipine drip and the blood pressures under better control at the patient is receiving a combination of Zestril and Coreg. The patient is continuing the course of antibiotics and IV Zosyn. IV fluids were running at 75 mL an hour and I cut it down to 20 mL an hour as maintenance. No other significant events. I also performed a bedside bronchoscopy on this patient in the upper airway inspection showed that the pat jamesnt's cords were not fully functional. There was some mobility with abduction yet the extent of adduction was not enough for me to pass my bronchoscope past the vocal cords. There may be also some underlying subglottic stenosis which I was unable to visualize. 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 Currently the patient has a #[address]iley [address]. 03/31/2020, the patient continues to have signs of anoxic encephalopathy. the patient is unresponsive. The patient was on a assist-control mode of ventilation with a tidal volume of 350 and the rate of 24 with an FiO2 of 35% and a PEEP of 5. I switched her to 35% trach collar. She is in a positive fluid balance. The input output balance was +2.3 L over the past 24 hours and the patient is receiving enteral feeding for nutritional support and she is on vital high protein at the rate of 34 mL an hour. She has completed the course of IV Zosyn. No respiratory secretions. Tracheostomy tube is in place. We are still awaiting clearance and insurance authorization to transfer this patient to [facility]. The patient has no seizure activity. Remains unresponsive. Opens her eyes spontaneously. Does not follow any commands. She is getting more contracted an upper and lower extremities. Her next images are also edematous. She is taking no sedation for now. 04/01/2020, the patient is on 35% trach collar. She is quite comfortable. Neurologically no improvement. No purposeful movement. No response pH opens up her eyes. She has an adequate cough. She is tolerating her enteral feeding for nutritional support. She is afebrile. She is of Zosyn. She is making good ur ine output and the patient is being diuresis with Lasix 40 g IV every 24 hours in that fluid balance is -1.1 L over the past 24 hours. Enterofeeding is in the form of vital high protein 1.2 at the rate of 50 mL an hour. No other significant events overnight. No respiratory secretions. Chest x-ray findings and essentially unchanged and the patient is likely going to a chcf locally. I'm willing to make recommendations to move this patient today medical floor for another 24 hours of monitoring. 04/02/2020, the patient is on a trach collar at 35% FiO2. Doing well. Neurologically impaired. She isn't anoxic encephalopathy and no clinical response. She is being diuresed gently. Menstrual balance is -1.5 L over the past 24 hours and her edema is also improving. The patient is on enteral nutrition with high protein vital feeds at the rate of 34 mL an hour. She is tolerating enteral feeding. No aspiration. She did have a bowel movement yesterday. Otherwise, she is afebrile. Chest x-ray findings from today quite stable and the patient is on no antibiotics for now. The patient's chest x-ray shows some interval improvement in aeration of the left lung and a tracheostomy tube is overlying the tracheal air column. Objective - Vital Signs Vital signs: Vital Signs Temp 98.0 F 04/02/20 00:00 Pulse 74 04/02/20 11:33 Resp 28 H 04/02/20 08:00 BP 140/67 04/02/20 08:00 Pulse Ox 98 04/02/20 08:00 Intake & Output 04/01/20 04/02/20 04/02/20 18:59 06:59 18:59 Intake Total 870 490 140 Output Total 2325 600 200 Balance -1455 -110 -60 Weight 99.2 kg 99.2 kg Intake: IV 240 240 40 0.9% Na 240 240 40 Tube Feeding 600 250 100 Other 30 Output: Urine 2325 600 200 Other: Voiding Method Indwelling Catheter Indwelling Catheter Indwelling Catheter # Bowel Movements 1 ABP, PAP, CO, CI - Last Documented Arterial Blood Pressure 136/50 - Exam Gen. appearance the patient is calm and comfortable, not responsive, currently she is down to 35% trach collar. Head exam was generally normal. There was no scleral icterus or corneal arcus. Mucous membranes were moist. Neck was supple and without jugular venous distension, thyromegaly, or carotid bruits. Carotids were easily palpable bilaterally. There was no adenopathy.the patient is a tracheostomy tube in place and the patient has a #4 [address]iley tracheostomy tube in place. Cardiac exam revealed the PMI to be normally situated and sized. The rhythm was regular and no extrasystoles were noted during several minutes of auscultation. The first and second heart sounds were normal and physiologic splitting of the second heart sound was noted. There were no murmurs, rubs, clicks, or gallops. Lungs sounds are diminished and the patient is some few scattered rhonchi and somewhat coarse. No wheezes or crackles. Breath sounds are equal and symmetrical at this point in time. Abdominal exam revealed normal bowel sounds. The abdomen was soft, non-tender, and without masses, organomegaly, or appreciable enlargement of the abdominal aorta.. The patient has a PEG tube in place and the patient is a colostomy Examination of the extremities revealed easily palpable radial, femoral and pedal pulses. There was no cyanosis, clubbing or edema. Examination of the skin revealed no evidence of significant rashes, suspicious appearing nevi or other concerning lesions. Neurologically the patient is nonverbal and the patient is not responsive to any verbal or painful stimulation. Neurologic exam is essentially unchanged compared to yesterday. Motor and sensory function cannot be assessed. The patient may grimace and do some slight withdrawing to deep painful stimulation to her upper extremity. Otherwise, she doesn't following commands. No nystagmus. No preferential gaze. - Labs CBC & Chem 7: 04/02/20 07:40 04/02/20 07:40 Labs: Abnormal Lab Results - Last 24 Hours (Table) 04/01/20 04/01/20 04/02/20 Range/Units 16:04 19:59 00:06 WBC (3.8-10.6) k/uL RBC (3.80-5.40) m/uL Hgb (11.4-16.0) gm/dL Hct (34.0-46.0) % Neutrophils # (1.3-7.7) k/uL BUN (7-17) mg/dL Glucose (74-99) mg/dL POC Glucose (mg/dL) 294 H 198 H 272 H (75-99) mg/dL 04/02/20 04/02/20 04/02/20 Range/Units 04:06 07:37 07:40 WBC (3.8-10.6) k/uL RBC (3.80-5.40) m/uL Hgb (11.4-16.0) gm/dL Hct (34.0-46.0) % Neutrophils # (1.3-7.7) k/uL BUN 21 H (7-17) mg/dL Glucose 221 H (74-99) mg/dL POC Glucose (mg/dL) 219 H 217 H (75-99) mg/dL 04/02/20 Range/Units 07:40 WBC 11.1 H (3.8-10.6) k/uL RBC 3.54 L (3.80-5.40) m/uL Hgb 10.1 L (11.4-16.0) gm/dL Hct 31.3 L (34.0-46.0) % Neutrophils # 9.2 H (1.3-7.7) k/uL BUN (7-17) mg/dL Glucose (74-99) mg/dL POC Glucose (mg/dL) (75-99) mg/dL Microbiology - Last 24 Hours (Table) 03/31/20 09:50 Urine Culture - Preliminary Urine,Clean Catch Yeast species 03/27/20 14:49 Blood Culture - Preliminary Blood No Growth after 120 hours Assessment and Plan Plan: 1 anoxic encephalopathy secondary to cardiopulmonary arrest. We feel that this was a pulmonary arrest followed by a cardiac arrest as the patient was found to have a documented of [id number] cardiac pulmonary arrest secondary to ventricular fibrillation/PEA rhythm. The patient is on them of at least 10 minutes she can return of ventilation. I suspect that the patient probably had a respiratory arrest related to a complication of her airways as the patient was found to have significant narrowing in her upper airway to the point where the patient had failed a revision of a tracheostomy tube. I further did an upper airway inspection on this patient on 03/30/2020 and the patient did not have full mobility and adduction of the vocal cords and I was unable to pass the bronchoscope through the vocal cords and I also suspect a possibility of subglot tic stenosis in addition to weakness/paralysis of the vocal cords. As such, I would suggest keeping the tracheostomy tube in place. The patient continues to have signs of hypoxic/anoxic encephalopathy without any interval improvement and she remains to be unresponsive. No significant change in her neurologic status. Nevertheless, the patient has some brainstem reflexes and the patient was plac ed on trach collar. She has adequate ability to do pulmonary toileting. 2 anoxic encephalopathy secondary to above, the patient continues to be deeply encephalopathic, unresponsive to any verbal stimulation, may withdrawal or grimace to deep painful stimulation and her overall neurologic function have remained unchanged . The patient remains unresponsive. 3 chronic respiratory failure, hypoxic in nature and the patient has a tracheostomy tube in place, and this is a #4 shotty tracheostomy tube. A bronchoscopy and upper airway inspection was done. Consider the possibility of a severe subglottic stenosis probably related to previous tracheostomy tube insertion and probably related to previous intubation. The patient is also suspected to have a vocal cord paralysis as the patient was not found to have complete ability to abduct the vocal cords.. Currently the patient has a #4 tracheostomy tube insertion that was placed at a time of her cardiac arrest. The patient was taken off the mechanical ventilator and the patient is currently on 35% tracheostomy collar. Note that overnight she was still A Assist-Control Mode of Ventilation Earlier This Morning Show a Trach Collar. 4 PEG tube for enteral feeding and nutritional support, postop day # 7 5 possible aspiration pneumonia currently on IV Zosyn, completed the course of the chest x-ray findings are essentially stable, chest x-ray from today shows interval improvement in aeration of the left lung base 6 history of ischemic cardiomyopathy with a recent echocardiogram showed improvement in LV function with normalization of the LV 7 history of previous tracheostomy tube insertion, inserted for stridor and respiratory difficulty, requiring insertion and removal of tracheostomy tube. 8 COPD 9 coronary artery disease with previous stenting of the LAD 1o previous history of cardiac arrest from 2008 11 Hypertension and the blood pressure is under better control for now. 12 diabetic peripheral neuropathy 13 hypernatremia, improved, 14 edema with third spacing, improving with diuresis. Plan IV fluids to 20 mL an hour Lasix 40 mg IV every 24 hours, the patient remains in a negative fluid balance in the edema in the upper and lower extremities are improving. Keep the patient on a trach collar 35% No need for mechanical ventilation this point in time. The patient has an adequate cough and she is able to protect her airways. Tracheostomy tube will be kept in place. The patient #4 shotty tracheostomy tube. Continue enteral feeding for nutritional support through the PEG tube The patient continues to have severe encephalopathy related to hypoxic encephalopathy. There is no interval improvement in his neurologic functions and the same examination was reproduced on today's evaluation. We'll continue the supportive care, including enteral feeding for nutritional support We'll continue to follow, we'll transfer this patient to medical floor. Ultimately plan is to transfer her to a chcf with her tracheostomy tube in place. We are going to transfer this patient to medical floor. With the next 24-48 hours the patient is being arranged to be transferred to a chcf. Long- term prognosis poor baseline above-mentioned comorbidities.
--- NOTE | 2020-04-02 12:37 | P.PN ---
Subjective Progress Note Date: 04/02/20 CHIEF COMPLAINT: Cardiopulmonary arrest HISTORY OF PRESENT ILLNESS: Patient is a remains in the ICU. She is status post PEG tube placement. She is tolerating tube feeds. Tube feedings are currently at 50 ml/hour. Afebrile. WBC 10.1 She is on trach collar PHYSICAL EXAM: VITAL SIGNS: Reviewed. GENERAL: Well-developed in no acute distress. HEENT: No sclera icterus. Extraocular movements grossly intact. Moist buccal mucosa. Head is atraumatic, normocephalic. ABDOMEN: Soft. Nondistended. Nontender. PEG tube site clean dry and intact NEUROLOGIC: Not responsive ASSESSMENT: 1. Status post out of hospital cardiopulmonary arrest 2. Status post mechanical ventilation with insertion of a pediatric tracheostomy tube and a prior tracheostoma site for hypoxic respiratory failure 3. Severe protein calorie malnutrition Status post PEG tube placement 3. Anoxic encephalopathy 4. History of vocal cord paralysis and previous tracheostomy 5. Possible aspiration pneumonia 6. Acute systolic CHF exacerbation 7. History of coronary artery disease with cardiac stents PLAN: -Continue tube feedings for nutritional support -Per pulmonary's note they are working on transferring patient to longterm within the next 24-48 hours Physician [employer] note has been reviewed by physician. Signing provider agrees with the documented findings, assessment, and plan of care. Objective - Vital Signs Vital signs: Vital Signs Temp 98.0 F 04/02/20 00:00 Pulse 74 04/02/20 11:33 Resp 28 H 04/02/20 08:00 BP 140/67 04/02/20 08:00 Pulse Ox 98 04/02/20 08:00 Intake & Output 04/01/20 04/02/20 04/02/20 18:59 06:59 18:59 Intake Total 870 490 140 Output Total 2325 600 200 Balance -1455 -110 -60 Weight 99.2 kg 99.2 kg Intake: IV 240 240 40 0.9% Na 240 240 40 Tube Feeding 600 250 100 Other 30 Output: Urine 2325 600 200 Other: Voiding Method Indwelling Catheter Indwelling Catheter Indwelling Catheter # Bowel Movements 1 ABP, PAP, CO, CI - Last Documented Arterial Blood Pressure 136/50 - Labs CBC & Chem 7: 04/02/20 07:40 04/02/20 07:40 Labs: Abnormal Lab Results - Last 24 Hours (Table) 10/04/01/20 04/02/20 Range/Units 16:04 19:59 00:06 WBC (3.8-10.6) k/uL RBC (3.80-5.40) m/uL Hgb (11.4-16.0) gm/dL Hct (34.0-46.0) % Neutrophils # (1.3-7.7) k/uL BUN (7-17) mg/dL Glucose (74-99) mg/dL POC Glucose (mg/dL) 294 H 198 H 272 H (75-99) mg/dL 04/02/20 04/02/20 04/02/20 Range/Units 04:06 07:37 07:40 WBC (3.8-10.6) k/uL RBC (3.80-5.40) m/uL Hgb (11.4-16.0) gm/dL Hct (34.0-46.0) % Neutrophils # (1.3-7.7) k/uL BUN 21 H (7-17) mg/dL Glucose 221 H (74-99) mg/dL POC Glucose (mg/dL) 219 H 217 H (75-99) mg/dL 04/02/20 Range/Units 07:40 WBC 11.1 H (3.8-10.6) k/uL RBC 3.54 L (3.80-5.40) m/uL Hgb 10.1 L (11.4-16.0) gm/dL Hct 31.3 L (34.0-46.0) % Neutrophils # 9.2 H (1.3-7.7) k/uL BUN (7-17) mg/dL Glucose (74-99) mg/dL POC Glucose (mg/dL) (75-99) mg/dL Microbiology - Last 24 Hours (Table) 03/31/20 09:50 Urine Culture - Preliminary Urine,Clean Catch Yeast species 03/27/20 14:49 Blood Culture - Preliminary Blood No Growth after 120 hours
[2020-04-02 12:42] LABS: Glucose,Whole Blood 247 mg/dL (75-99)
--- NOTE | 2020-04-02 15:23 | P.PN ---
Subjective Progress Note Date: 04/02/20 Patient was seen at bedside and she has not had any further seizure-like episodes. She continues to be nonverbal and nonresponsive. She is no longer on ventilator. He is currently not on any IV sedation. Objective - Vital Signs Vital signs: Vital Signs Temp 98.0 F 04/02/20 00:00 Pulse 74 04/02/20 11:33 Resp 28 H 04/02/20 08:00 BP 140/67 04/02/20 08:00 Pulse Ox 98 04/02/20 08:00 Intake & Output 04/01/20 04/02/20 04/02/20 18:59 06:59 18:59 Intake Total 870 490 660 Output Total 2325 600 1450 Balance -1455 -110 -790 Weight 99.2 kg 99.2 kg Intake: IV 240 240 260 0.9% Na 240 240 260 Tube Feeding 600 250 400 Other 30 Output: Urine 2325 600 1450 Other: Voiding Method Indwelling Catheter Indwelling Catheter Indwelling Catheter # Bowel Movements 1 ABP, PAP, CO, CI - Last Documented Arterial Blood Pressure 136/50 - Exam General: Patient does not look in acute distress. Respiratory: She is trach and off Vent today. Clear to auscultation throughout Neurological exam: Limited because of her condition. Higher mental function. Patient is awake but continues to be unresponsive and not following any commands. The pupils are round and 3-4mm bilaterally. Positive corneal reflex bilaterally. There is no facial weakness appreciated bilaterally. Has intact gag reflex Motor: Gait is deferred. Strength could not be assessed because of patient condition. There is no spontaneous movement. No spontaneous movement seen. Sensation to painful stimuli seems intact. With painful stimuli. Upper or lower extremities she'll grimace her face. Reflexes are 1 positive throughout. - Labs CBC & Chem 7: 04/02/20 07:40 04/02/20 07:40 Labs: Abnormal Lab Results - Last 24 Hours (Table) 04/01/20 04/01/20 04/02/20 Range/Units 16:04 19:59 00:06 WBC (3.8-10.6) k/uL RBC (3.80-5.40) m/uL Hgb (11.4-16.0) gm/dL Hct (34.0-46.0) % Neutrophils # (1.3-7.7) k/uL BUN (7-17) mg/dL Glucose (74-99) mg/dL POC Glucose (mg/dL) 294 H 198 H 272 H (75-99) mg/dL 04/02/20 04/02/20 04/02/20 Range/Units 04:06 07:37 07:40 WBC (3.8-10.6) k/uL RBC (3.80-5.40) m/uL Hgb (11.4-16.0) gm/dL Hct (34.0-46.0) % Neutrophils # (1.3-7.7) k/uL BUN 21 H (7-17) mg/dL Glucose 221 H (74-99) mg/dL POC Glucose (mg/dL) 219 H 217 H (75-99) mg/dL 04/02/20 04/02/20 Range/Units 07:40 12:41 WBC 11.1 H (3.8-10.6) k/uL RBC 3.54 L (3.80-5.40) m/uL Hgb 10.1 L (11.4-16.0) gm/dL Hct 31.3 L (34.0-46.0) % Neutrophils # 9.2 H (1.3-7.7) k/uL BUN (7-17) mg/dL Glucose (74-99) mg/dL POC Glucose (mg/dL) 247 H (75-99) mg/dL Microbiology - Last 24 Hours (Table) 03/31/20 09:50 Urine Culture - Final Urine,Clean Catch Tammie glabrata 03/27/20 14:49 Blood Culture - Preliminary Blood No Growth after 120 hours Assessment and Plan Assessment: 64-year-old female, who has tracheostomy since March 2019, had a witnessed respiratory arrest followed by cardiac arrest at home, with downtime of about 10 minutes, although patient's daughter stating <5 minutes. Patient is 6 days post cardiac arrest, now showing signs of clinical improvement. * Anoxic brain injury: cardiac arrest for 10 minute---no improvement since I had her for the past 3 days (has intact brainstem only). * Encephalopathy due to above * Acute respiratory failure, * [place] aspiration pneumonia * History of cardiac arrest in October 2018 during cardiac procedure. * History of vocal cord paralysis and previous tracheostomy. * COPD * Diabetes * Hypertension * Mild renal insufficiency. * X tobacco use Plan: * Recommend to avoid any the sedation or opioid as much as possible. * Repeated computed tomography scan of the head 03/24/2020, revealed no acute process, no cerebral edema or CVA. * Repeat EEG 03/23/2020 revealed diffuse slowing in moderate to high amplitude delta range, consistent with severe encephalopathy. No epileptiform activity was seen on this study. * Repeat EEG on 03/27/2020 showed no epileptiform activity. The background improved at. * Continue Keppra 500 mg twice a day (adjusted to her renal functions). * Continue Neurontin 300 mg 3 times a day based upon her renal functions. * As a result of the cardiac arrest the patient suffered which seem a significant brain injury. Patient does have intact brainstem reflexes but I think the patient will be dependent on others for assistance if there are any improvement. * Patient CODE STATUS is full code per family. * [facility] authorization There is no neurology service over the weekend. Please perfect serve as needed. Catalino Kearns M.D. Neuro-Hospitalist Time with Patient: Less than 30
[2020-04-02 15:53] LABS: Glucose,Whole Blood 174 mg/dL (75-99)
[2020-04-02] MEDS: SODIUM CHLORIDE 0.9% 1,000 ML IV SCH (16:03)
[2020-04-02 19:49] LABS: Glucose,Whole Blood 241 mg/dL (75-99)
[2020-04-02] MEDS: INSULIN DETEMIR (LEVEMIR) 100 UNIT/ML SYR SQ SCH (20:58)
--- NOTE | 2020-04-02 21:19 | P.PN ---
Progress Note - Text Progress Note Date: 04/02/20 Chief Complaint: Decreased responsiveness History of presenting complaint: This is a 64-year-old patient of Dr. Finley. Chronic stable medical conditions include hypertension, hyperlipidemia, diabetic peripheral neuropathy. was in the hospital in October 2018 having cardiac arrest following LAD angioplasty. Also pulmonary [id number] was felt a left vocal cord paralysis probably from intubation. Patient was brought in by the EMS. Family had called closure short of breath. While they were on the phone vacation became unresponsive and collapsed into the bed. Then begin using a bag valve mask ventilation. When the EMS arrived patient was unresponsive she also went into ventricular fibrillation. She received 1 mg of epinephrine 1 shock and patient then came around. Downtime was about 10 minutes. Patient is in the ICU. On the ventilator. FiO2 50% and a PEEP of 5. Patient is on IV propofol and norepinephrine. Telemetry shows sinus rhythm. Has an NG tube. Per cardiology notes her EF is 35%. In the past. admitted with-cardiac arrest with underlying rhythm of ventricular fibrillation the downtime of tenderness, cardioverted, acute hypoxic respiratory failure on the ventilator, acute CHF exacerbation, lactic acidosis likely type II, aspiration pneumonia, and acute COPD exacerbation.started on IV Zosyn, IV Solu- Medrol. Initially intubated. Put on Cleviprex drip for blood pressure. Based on EEG placed on IV Keppra per neurology. Dose of Neurontin scaled back. Because of renal failure. Had a PEG tube placed. [id number] on trach collar. 35%. Telemetry shows sinus rhythm. 2 feeding at goal at 50 mL an hour. No spontaneous movements. Perspiring occasionally. Patient is DO NOT RESUSCITATE Review of systems:-Patient doesn't follow commands Active Medications Acetaminophen (Acetaminophen Tab 325 Mg Tab) 650 mg PO Q4HR PRN PRN Reason: Fever and/or Mild Pain Last Admin: 03/31/20 09:16 Dose: 650 mg Documented by: Albuterol/Ipratropium (Ipratropium-Albuterol 3 Ml Neb) 3 ml INHALATION RT-Q4H GREG Last Admin: 04/02/20 18:58 Dose: 3 ml Documented by: Albuterol/Ipratropium (Ipratropium-Albuterol 3 Ml Neb) 3 ml INHALATION RT-Q2H PRN PRN Reason: Shortness Of Breath Or Wheezing Amlodipine Besylate (Amlodipine 10 Mg Tab) 10 mg PO DAILY [facility] Last Admin: 04/02/20 09:30 Dose: 10 mg Documented by: Aspirin (Aspirin 81 Mg) 81 mg PO DAILY [facility] Last Admin: 04/02/20 09:30 Dose: 81 mg Documented by: Carvedilol (Carvedilol 12.5 Mg Tab) 12.5 mg PO BID-W/MEALS [facility] Last Admin: 04/02/20 19:02 Dose: 12.5 mg Documented by: Docusate Sodium (Docusate Oral Soln 100 Mg/10 Ml Cup) 100 mg PO DAILY [facility] Last Admin: 04/02/20 09:30 Dose: 100 mg Documented by: Ezetimibe (Ezetimibe 10 Mg Tab) 10 mg PO DAILY [facility] Last Admin: 04/02/20 09:30 Dose: 10 mg Documented by: Furosemide (Furosemide 10 Mg/Ml 4 Ml Vial) 40 mg IV DAILY [facility] Last Admin: 04/02/20 09:28 Dose: 40 mg Documented by: Gabapentin (Gabapentin 300 Mg Cap) 300 mg PO TID [facility] Last Admin: 04/02/20 20:58 Dose: 300 mg Documented by: Heparin Sodium (Porcine) (Heparin Sodium,Porcine 5,000 Unit/Ml 1 Ml Vial) 5,000 unit SQ Q8HR [facility] Last Admin: 04/02/20 16:01 Dose: 5,000 unit Documented by: Hydromorphone HCl (Hydromorphone 0.5 Mg/0.5 Ml Syringe) 0.5 mg IVP Q6HR PRN PRN Reason: Pain Last Admin: 03/26/20 18:40 Dose: 0.5 mg Documented by: Hydromorphone HCl (Hydromorphone 1 Mg/Ml 1 Ml Syringe) 1 mg IVP Q6HR PRN PRN Reason: Pain Last Admin: 04/01/20 05:17 Dose: 1 mg Documented by: Sodium Chloride (Saline 0.9%) 1,000 mls @ 20 mls/hr IV .Q24H [facility] Last Admin: 04/02/20 16:03 Dose: 20 mls/hr Documented by: Lactated Ringer's (Lactated Ringers) 1,000 mls @ 20 mls/hr IV .Q24H [facility] Last Admin: 04/02/20 04:49 Dose: Not Given Documented by: Insulin Aspart (Insulin Aspart (Novolog) 100 Unit/Ml Vial) 0 unit SQ Q4H [facility]; Protocol Last Admin: 04/02/20 19:53 Dose: 8 unit Documented by: Insulin Detemir (Insulin Detemir (Levemir) 100 Unit/Ml Syr) 22 unit SQ HS [facility] Last Admin: 04/02/20 20:58 Dose: 22 unit Documented by: Levetiracetam (Levetiracetam 500 Mg Tab) 500 mg PO Q12HR [facility] Last Admin: 04/02/20 20:58 Dose: 500 mg Documented by: Lisinopril (Lisinopril 10 Mg Tab) 10 mg PO DAILY [facility] Last Admin: 04/02/20 09:30 Dose: 10 mg Documented by: Lorazepam (Lorazepam 2 Mg/Ml Inj) 1 mg IV Q4HR PRN PRN Reason: Seizures Last Admin: 03/26/20 18:52 Dose: 1 mg Documented by: Miscellaneous Information (Magnesium Replacement Protocol 1 Each Misc) 1 each MISCELLANE DAILY PRN; Protocol PRN Reason: Per Protocol Miscellaneous Information (Potassium Replacement Protocol 1 Each Misc) 1 each MISCELLANE DAILY PRN; Protocol PRN Reason: Per Protocol Naloxone HCl (Naloxone 0.4 Mg/Ml 1 Ml Vial) 0.2 mg IV Q2M PRN PRN Reason: Opioid Reversal Pantoprazole Sodium (Pantoprazole 40 Mg/10 Ml Vial) 40 mg IVP DAILY [facility] Last Admin: 04/02/20 09:27 Dose: 40 mg Documented by: Prasugrel (Prasugrel 10 Mg Tab) 10 mg PO DAILY [facility] Last Admin: 04/02/20 09:30 Dose: 10 mg Documented by: Senna (Sennosides 8.6 Mg Tab) 8.6 mg PO BID PRN PRN Reason: Constipation Last Admin: 03/31/20 09:15 Dose: 8.6 mg Documented by: Physical examination: VITAL SIGNS: 98.6, 76, 29, 150/70, 96% on trach collar GENERAL: laying in bed, EYES: Pupils equal. Conjunctiva normal. NECK: JVD unable to assess, masses not palpable.stoma with the tracheostomy trach collar HEART: First and second heart sounds are normal; no edema. LUNGS: Respiratory rate increased, decreased breath sounds ABDOMEN: Soft, nontender, liver spleen not palpable, no masses palpable. PSYCH: Unable to assess NEUROLOGICAL: Nonpurposeful movement to painful stimuli INVESTIGATIONS, reviewed in the clinical context: white count 11.1 hemoglobin 10.1 potassium 3.7 creatinine 0.88 [id number], 174 Chest x-ray possibly some infiltrate 2-D echocardiogram-EF 60-65%, mild to moderate pulmonary hypertension Repeat EEG-March 23-showing generalized cerebral dysfunction EEG suggestive of generalized cerebral dysfunction Admission testing White count 10.1 hemoglobin 13.4 platelets 293 potassium 5.8 bicarb 17 bun 42 creatinine 1.81 blood glucose 458 lactic acid 8.1 Troponin I less than 0.012, 0.056,0.085 EKG tracing personally reviewed by me-sinus rhythm low-voltage right bundle branch block pattern Computed tomography scan of the brain-negative Chest x-ray film personally reviewed by me-portable cardiomegaly venous prominence Assessment: -Cardiac arrest with underlying rhythm of ventricle fibrillation, with downtime of 10 minutes cardioverted, 1 dose of epinephrine -Acute hypoxic respiratory failure, requiring ventilator support-slow to respond -Acute on chronic congestive heart failure exacerbation from systolic dysfunction EF 25% -Lactic acidosis most likely type II. Cannot rule out infectious process. -Possible aspiration pneumonia -Acute COPD exacerbation in an ex-smoker, exposed to secondhand smoking-slow to respond -Possible tracheal stenosis following intubation -History of cardiac arrest following stenting to LAD -Coronary artery disease with stent to LAD -Diabetes mellitus 2 uncontrolled with hyper glycemia on insulin drip secondary to steroids -Essential hypertension -Hyperlipidemia -Diabetic peripheral neuropathy -Left vocal cord paralysis from intubation -Obesity BMI 33.9 -Consider anoxic brain injury. / encephalopathy.-Slow to respond. -Secondary pulmonary hypertension -PEG tube placed today March [address] Amador Plan: continue current medication treatment plan. Prognosis remains guarded. Increase evening dose of Levemir to 22 units daily at bedtime. Continue 2 feeding.
[2020-04-02 23:47] LABS: Glucose,Whole Blood 238 mg/dL (75-99)
[2020-04-03] MEDS: IPRATROPIUM-ALBUTEROL 3 ML NEB INHALATION SCH ×5 (00:24→21:12)
[2020-04-03 03:59] LABS: Glucose,Whole Blood 185 mg/dL (75-99)
[2020-04-03] MEDS: INSULIN ASPART (NovoLOG) 100 UNIT/ML VIAL SQ SCH ×6 (04:02→23:31)
[2020-04-03 04:28] LABS: Calcium 8.9 mg/dL (8.4-10.2); Potassium 3.7 mmol/L (3.5-5.1)
[2020-04-03] MEDS ORDERED: POTASSIUM BICARBONATE/CIT AC 20 MEQ TABLET.EFF NG-TUBE SCH (05:00)
[2020-04-03] MEDS: LACTATED RINGERS 1,000 ML IV SCH ×2 (05:12→17:01)
[2020-04-03] MEDS: carvediloL 12.5 MG TAB PO SCH ×2 (06:30→17:00)
[2020-04-03] MEDS: PANTOPRAZOLE 40 MG/10 ML VIAL IVP SCH (08:19)
[2020-04-03] MEDS: FUROSEMIDE 10 MG/ML 4 ML VIAL IV SCH (08:19)
[2020-04-03] MEDS: ASPIRIN 81 MG PO SCH (08:20)
[2020-04-03] MEDS: levETIRAcetam 500 MG TAB PO SCH ×2 (08:20→20:56)
[2020-04-03] MEDS: amLODIPine 10 MG TAB PO SCH (08:20)
[2020-04-03] MEDS: HEPARIN SODIUM,PORCINE 5,000 UNIT/ML 1 ML VIAL SQ SCH ×3 (08:20→23:31)
[2020-04-03] MEDS: PRASUGREL 10 MG TAB PO SCH (08:20)
[2020-04-03] MEDS: GABAPENTIN 300 MG CAP PO SCH ×3 (08:20→20:56)
[2020-04-03] MEDS: lisinopriL 10 MG TAB PO SCH (08:20)
[2020-04-03] MEDS: DOCUSATE ORAL SOLN 100 MG/10 ML CUP PO SCH (08:20)
[2020-04-03 08:23] LABS: Glucose,Whole Blood 242 mg/dL (75-99)
[2020-04-03] MEDS: EZETIMIBE 10 MG TAB PO SCH (08:50)
--- NOTE | 2020-04-03 11:34 | P.PN ---
Subjective Progress Note Date: 04/03/20 64-year-old male patient with known history of coronary artery disease and previous cardiac arrest that goes back in October 2018. At that time the patient had an elective cardiac catheterization and the patient was found to have mild LAD lesion. During the procedure, the patient went into a cardiac arrest and angioplasty was performed. However, the patient developed profound hypotension and went into a PEA rhythm. At that time the patient had a cardiac arrest for a total of 60 minutes in the [employer]. During that time, the patient had a stent to the LAD and the patient was resuscitated and Levaquin prescription assisted device was inserted and the patient was eventually transferred to the intensive care unit. The patient prolonged course of intubation mechanical ventilation and ultimately the patient was discharged on 10/17/2019. At that time, the patient is systolic heart failure with an ejection fraction of 35%. The patient also known to have COPD and possibly a left cord paralysis as the patient had intermittent episodes of stridor. The patient was again seen as an inpatient on 03/23/2019 at that time he was having shortness of breath and stridor and eventually the patient a tracheostomy tube placed. His tracheostomy was done on 05/14/2019 at [facility]. The patient was brought him back to the hospital on 03/20/2020 for another episode of cardiopulmonary arrest. Apparently the patient was found to be unresponsive and the scene and the patient collapsed and she was pulseless. She was in ventricular fibrillation. She was given epinephrine and she was shocked/defibrillator. CPR was numb for a total of 5 minutes and following that there was a spontaneous return of circulation. The patient was brought into the hospital unresponsive. CAT scan of the brain was negative. Comorbidities include diabetes mellitus, hypertension, hyperlipidemia, coronary artery disease, diabetes mellitus related peripheral neuropathy and as mentioned previous history of cardiac arrest that occurred in October 2018. During this current admission, the patient had insertion of a PEG tube. She remains on a mechanical ventilator. . The patient has anoxic encephalopathy with the latest EEG that was done on 03/27/2020 showing abnormal EEG with moderate slowing in generalized cerebral dysfunction without any seizure. The echocardiogram was done on 03/22/2020 showed improvement in function with an ejection fraction of 60-65% and there was no valvular abnormalities noted. The patient had a picc line in the RUE. The patient is covered with IV Zosyn for possible aspiration pneumonia. The patient is currently on D5 water. The patient is on Cleviprex 1 mg an hour from BP control. The patient remains on a mechanical ventilator. The patient has a #[address] This morning the patient is on assist control mode at the rate of 24 with a tidal volume of 650 and FiO2 of 35% with a PEEP of 5. The blood gases from this morning showed a pH of 7.44 with a pCO2 of 39 and pO2 of 74 and the chest x-ray shows some limited atelectatic changes in lung bases and the tracheostomy tube was in a good location. The patient is on D5 water infusion at the rate of 75 mL an hour and sodium level is improving is down to 138. The patient was taken to the operating room by general surgery. An attempt was done to revise a tracheostomy tube and it failed. The patient was not able to get intubated by anesthesia as there was significant narrowing and the intubation process failed even with a smaller bronchoscope. Based on that, the procedure got canceled. The patient remains off sedation. The patient is withdrawing only to deep painful stimulation. She will occasionally get emesis. She does not follow any commands. No purposeful movement at this point in time. On 03/30/2020, the patient is still off sedation, still encephalopathic and this is attributed to hypoxic encephalopathy. The patient earlier this morning was on a mechanical ventilator. I took her off the mechanical ventilator and I put the patient a trach collar and the patient did well without any major difficulties. She was placed on a 40% trach collar. She is able to cough and she is able to clear respiratory secretions. The patient does not have any major respiratory secretions. Earlier this morning, she wasn't an FiO2 of 35% with a PEEP of 5 and I was able to switch her and transition her to a trach collar. She is tolerating her enteral feeding for nutritional support. She is on limited stable. IV fluids are running at 75 mL an hour. No fever. No chills. No aspiration. Chest x-ray from today is showing adequate positioning of the tracheostomy tube and there is also some mild improved aeration on the bilateral lungs and there is some limited infiltration of the lung bases bilaterally. The patient is currently off the clevidipine drip and the blood pressures under better control at the patient is receiving a combination of Zestril and Coreg. The patient is continuing the course of antibiotics and IV Zosyn. IV fluids were running at 75 mL an hour and I cut it down to 20 mL an hour as maintenance. No other significant events. I also performed a bedside bronchoscopy on this patient in the upper airway inspection showed that the pat jamesnt's cords were not fully functional. There was some mobility with abduction yet the extent of adduction was not enough for me to pass my bronchoscope past the vocal cords. There may be also some underlying subglottic stenosis which I was unable to visualize. 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 Currently the patient has a #[address] 03/31/2020, the patient continues to have signs of anoxic encephalopathy. the patient is unresponsive. The patient was on a assist-control mode of ventilation with a tidal volume of 350 and the rate of 24 with an FiO2 of 35% and a PEEP of 5. I switched her to 35% trach collar. She is in a positive fluid balance. The input output balance was +2.3 L over the past 24 hours and the patient is receiving enteral feeding for nutritional support and she is on vital high protein at the rate of 34 mL an hour. She has completed the course of IV Zosyn. No respiratory secretions. Tracheostomy tube is in place. We are still awaiting clearance and insurance authorization to transfer this patient to [facility]. The patient has no seizure activity. Remains unresponsive. Opens her eyes spontaneously. Does not follow any commands. She is getting more contracted an upper and lower extremities. Her next images are also edematous. She is taking no sedation for now. 04/01/2020, the patient is on 35% trach collar. She is quite comfortable. Neurologically no improvement. No purposeful movement. No response pH opens up her eyes. She has an adequate cough. She is tolerating her enteral feeding for nutritional support. She is afebrile. She is of Zosyn. She is making good ur ine output and the patient is being diuresis with Lasix 40 g IV every 24 hours in that fluid balance is -1.1 L over the past 24 hours. Enterofeeding is in the form of vital high protein 1.2 at the rate of 50 mL an hour. No other significant events overnight. No respiratory secretions. Chest x-ray findings and essentially unchanged and the patient is likely going to a penitentiary locally. I'm willing to make recommendations to move this patient today medical floor for another 24 hours of monitoring. 04/02/2020, the patient is on a trach collar at 35% FiO2. Doing well. Neurologically impaired. She isn't anoxic encephalopathy and no clinical response. She is being diuresed gently. Menstrual balance is -1.5 L over the past 24 hours and her edema is also improving. The patient is on enteral nutrition with high protein vital feeds at the rate of 34 mL an hour. She is tolerating enteral feeding. No aspiration. She did have a bowel movement yesterday. Otherwise, she is afebrile. Chest x-ray findings from today quite stable and the patient is on no antibiotics for now. The patient's chest x-ray shows some interval improvement in aeration of the left lung and a tracheostomy tube is overlying the tracheal air column. 3119, the patient is doing well. Earlier this morning, she had some increased tachypnea and the patient was placed on a 60% trach collar. I was able to suction her tracheostomy and I'm trying to wean her down again to 35% trach collar. She is hemodynamically stable and the patient is being diuresed with IV Lasix. She is on normal saline 20 mL an hour. He is on vital AF at 50 mL an hour. Ultimate aim and goal is to transfer this patient to a penitentiary. This will be happening probably by Sunday. BP is under good control. The patient remains on a combination of Norvasc and Zestril. The patient on Keppra for seizure prophylaxis. She remains in anoxic encephalopathy. No change in her neurologic functions. Objective - Vital Signs Vital signs: Vital Signs Temp 98.7 F 04/03/20 06:29 Pulse 74 04/03/20 09:03 Resp 24 04/03/20 08:00 BP 132/63 04/03/20 06:29 Pulse Ox 95 04/03/20 06:29 Intake & Output 04/02/20 04/03/20 04/03/20 18:59 06:59 18:59 Intake Total 660 650 200 Output Total 1450 585 Balance -790 65 200 Weight 99.2 kg 97.6 kg Intake: IV 260 160 0.9% Na 260 160 Tube Feeding 400 400 200 Other 90 Output: Urine 1450 585 Other: Voiding Method Indwelling Catheter Indwelling Catheter Indwelling Catheter ABP, PAP, CO, CI - Last Documented Arterial Blood Pressure 136/50 - Exam Gen. appearance the patient is calm and comfortable, not responsive, currently she is down to 35% trach collar. Head exam was generally normal. There was no scleral icterus or corneal arcus. Mucous membranes were moist. Neck was supple and without jugular venous distension, thyromegaly, or carotid bruits. Carotids were easily palpable bilaterally. There was no adenopathy.the patient is a tracheostomy tube in place and the patient has a #4 Shiley tracheostomy tube in place. Cardiac exam revealed the PMI to be normally situated and sized. The rhythm was regular and no extrasystoles were noted during several minutes of auscultation. The first and second heart sounds were normal and physiologic splitting of the second heart sound was noted. There were no murmurs, rubs, clicks, or gallops. Lungs sounds are diminished and the patient is some few scattered rhonchi and somewhat coarse. No wheezes or crackles. Breath sounds are equal and symmetrical at this point in time. Abdominal exam revealed normal bowel sounds. The abdomen was soft, non-tender, and without masses, organomegaly, or appreciable enlargement of the abdominal aorta.. The patient has a PEG tube in place and the patient is a colostomy Examination of the extremities revealed easily palpable radial, femoral and pedal pulses. There was no cyanosis, clubbing or edema. Examination of the skin revealed no evidence of significant rashes, suspicious appearing nevi or other concerning lesions. Neurologically the patient is nonverbal and the patient is not responsive to any verbal or painful stimulation. Neurologic exam is essentially unchanged compared to yesterday. Motor and sensory function cannot be assessed. The patient may grimace and do some slight withdrawing to deep painful stimulation to her upper extremity. Otherwise, she doesn't following commands. No nystagmus. No preferential gaze. - Labs CBC & Chem 7: 04/02/20 07:40 04/03/20 04:00 Labs: Abnormal Lab Results - Last 24 Hours (Table) 04/02/20 04/02/20 04/02/20 Range/Units 12:41 15:51 19:47 Carbon Dioxide (22-30) mmol/L BUN (7-17) mg/dL Glucose (74-99) mg/dL POC Glucose (mg/dL) 247 H 174 H 241 H (75-99) mg/dL 04/02/20 04/03/20 04/03/20 Range/Units 23:46 03:56 04:00 Carbon Dioxide 32 H (22-30) mmol/L BUN 27 H (7-17) mg/dL Glucose 183 H (74-99) mg/dL POC Glucose (mg/dL) 238 H 185 H (75-99) mg/dL 04/03/20 Range/Units 08:22 Carbon Dioxide (22-30) mmol/L BUN (7-17) mg/dL Glucose (74-99) mg/dL POC Glucose (mg/dL) 242 H (75-99) mg/dL Microbiology - Last 24 Hours (Table) 03/27/20 14:49 Blood Culture - Final Blood No Growth after 144 hours 03/31/20 09:50 Urine Culture - Final Urine,Clean Catch Tammie glabrata Assessment and Plan Plan: 1 anoxic encephalopathy secondary to cardiopulmonary arrest. We feel that this was a pulmonary arrest followed by a cardiac arrest as the patient was found to have a documented of [id number] cardiac pulmonary arrest secondary to ventricular fibrillation/PEA rhythm. The patient is on them of at least 10 minutes she can return of ventilation. I suspect that the patient probably had a respiratory arrest related to a complication of her airways as the patient was found to have significant narrowing in her upper airway to the point where the patient had failed a revision of a tracheostomy tube. I further did an upper airway inspection on this patient on 03/30/2020 and the patient did not have full mobility and adduction of the vocal cords and I was unable to pass the bronchoscope through the vocal cords and I also suspect a possibility of subglottic stenosis in addition to weakness/paralysis of the vocal cords. As such, I would suggest keeping the tracheostomy tube in place. The patient continues to have signs of hypoxic/anoxic encephalopathy without any interval improvement and she remains to be unresponsive. No significant change in her neurologic status. Nevertheless, the patient has some brainstem reflexes and the patient was placed on trach collar. She has adequate ability to do pulmonary toileting. On today's evaluation, the patient remains on a trach collar and the patient is been off the mechanical ventilator for almost 48 hours and the patient is having her FiO2 titrated to maintain saturation above 90%. 2 anoxic encephalopathy secondary to above, the patient continues to be deeply encephalopathic, unresponsive to any verbal stimulation, may withdrawal or grimace to deep painful stimulation and her overall neurologic function have remained unchanged . The patient remains unresponsive. No change in her neurologic functions and status. 3 chronic respiratory failure, hypoxic in nature and the patient has a tracheostomy tube in place, and this is a #4 Shiley tracheostomy tube. A bronchoscopy and upper airway inspection was done. Consider the possibility of a severe subglottic stenosis probably related to previous tracheostomy tube insertion and probably related to previous intubation. The patient is also suspected to have a vocal cord paralysis as the patient was not found to have complete ability to abduct the vocal cords.. 4 PEG tube for enteral feeding and nutritional support, postop day # 8 5 possible aspiration pneumonia currently on IV Zosyn, completed the course of the chest x-ray findings are essentially stable, chest x-ray from today shows interval improvement in aeration of the left lung base. There is no follow-up chest x-ray done for today 6 history of ischemic cardiomyopathy with a recent echocardiogram showed improvement in LV function with normalization of the LV 7 history of previous tracheostomy tube insertion, inserted for stridor and respiratory difficulty, requiring insertion and removal of tracheostomy tube. 8 COPD 9 coronary artery disease with previous stenting of the LAD 1o previous history of cardiac arrest from 2008 11 Hypertension and the blood pressure is under better control for now. 12 diabetic peripheral neuropathy 13 hypernatremia, improved, 14 edema with third spacing, improving with diuresis. Plan IV fluids to 20 mL an hour Lasix 40 mg IV every 24 hours, and this is being administered on a daily basis Keep the patient on a trach collar and titrate FiO2 to maintain a saturation above 90% No need for mechanical ventilation this point in time. The patient has an adequate cough and she is able to protect her airways. Tracheostomy tube will be kept in place. The patient #4 Shiley tracheostomy tube. Continue enteral feeding for nutritional support through the PEG tube The patient continues to have severe encephalopathy related to hypoxic encephalopathy. There is no interval improvement in his neurologic functions and the same examination was reproduced on today's evaluation. I have not appreciated any improvement in neurologic function over the past 6 days We'll continue the supportive care, including enteral feeding for nutritional support We'll continue to follow, we'll transfer this patient to medical floor. Ultimately plan is to transfer her to a penitentiary with her tracheostomy tube in place.
[2020-04-03 11:36] LABS: Glucose,Whole Blood 218 mg/dL (75-99)
[2020-04-03 16:57] LABS: Glucose,Whole Blood 193 mg/dL (75-99)
--- NOTE | 2020-04-03 17:53 | P.PN ---
Subjective Progress Note Date: 04/03/20 CHIEF COMPLAINT: Status post PEG tube placement HISTORY OF PRESENT ILLNESS: The patient is a 64-year-old female status post PEG tube placement for protein malnutrition. She had placement of a pediatric tracheostomy tube with questionable features of vocal cord paralysis. Otherwise she remains in intensive care unit with ventilatory support. ROS: No fevers or chills. No new chest pain. History of change of trach PHYSICAL EXAM: VITAL SIGNS: Reviewed CONSTITUTIONAL: Well developed and in no acute distress. EYES: Conjuctivae without sclera icterus. Extraocular movements grossly intact. HEAD, EARS, NOSE, THROAT: Moist buccal mucosa. Head is atraumatic, normocephalic. No nasal drainage. NECK: Trach intact. RESPIRATORY: Non-labored respirations and equal bilateral excursions. CARDIOVASCULAR: Palpable 2+ radial pulses. ABDOMEN: G-tube intact. MUSCULOSKELETAL: No gross deformity of the lower extremities noted. No clubbing. No cyanosis. Has PRAFO boots SKIN: Good skin turgor. Well perfused. NEUROLOGIC: Cranial nerves II through XII grossly intact. No focal or lateralizing signs. PSYCH: Appropriate affect. Alert and oriented to person, place and time. CLINICAL LABS: White blood cell count 11.1, yesterday ASSESSMENT: 1. Protein malnutrition status post PEG tube placement 2. Anoxic encephalopathy PLAN: 1. Continue tube feeds 2. Transfer to [facility] when stable from intensive care unit Objective - Vital Signs Vital signs: Vital Signs Temp 98.7 F 04/03/20 06:29 Pulse 74 04/03/20 09:03 Resp 24 04/03/20 08:00 BP 132/63 04/03/20 06:29 Pulse Ox 95 04/03/20 06:29 Intake & Output 04/02/20 04/03/20 04/03/20 18:59 06:59 18:59 Intake Total 660 650 200 Output Total 1450 585 Balance -790 65 200 Weight 99.2 kg 97.6 kg Intake: IV 260 160 0.9% Na 260 160 Tube Feeding 400 400 200 Other 90 Output: Urine 1450 585 Other: Voiding Method Indwelling Catheter Indwelling Catheter Indwelling Catheter ABP, PAP, CO, CI - Last Documented Arterial Blood Pressure 136/50 - Labs CBC & Chem 7: 04/02/20 07:40 04/03/20 04:00 Labs: Abnormal Lab Results - Last 24 Hours (Table) 04/02/20 04/02/20 04/02/20 Range/Units 12:41 15:51 19:47 Carbon Dioxide (22-30) mmol/L BUN (7-17) mg/dL Glucose (74-99) mg/dL POC Glucose (mg/dL) 247 H 174 H 241 H (75-99) mg/dL 04/02/20 04/03/20 04/03/20 Range/Units 23:46 03:56 04:00 Carbon Dioxide 32 H (22-30) mmol/L BUN 27 H (7-17) mg/dL Glucose 183 H (74-99) mg/dL POC Glucose (mg/dL) 238 H 185 H (75-99) mg/dL 04/03/20 04/03/20 Range/Units 08:22 11:35 Carbon Dioxide (22-30) mmol/L BUN (7-17) mg/dL Glucose (74-99) mg/dL POC Glucose (mg/dL) 242 H 218 H (75-99) mg/dL Microbiology - Last 24 Hours (Table) 03/27/20 14:49 Blood Culture - Final Blood No Growth after 144 hours 03/31/20 09:50 Urine Culture - Final Urine,Clean Catch Tammie glabrata Assessment and Plan (1) Inadequate dietary intake of protein Current Visit: Yes Status: Acute Code(s): E63.9 - NUTRITIONAL DEFICIENCY, UNSPECIFIED SNOMED Code(s): 946677295 (2) Endotracheally intubated Current Visit: Yes Status: Acute Code(s): Z97.8 - PRESENCE OF OTHER SPECIFIED DEVICES SNOMED Code(s): 340619915 (3) Anoxic brain damage Current Visit: Yes Status: Acute Code(s): G93.1 - ANOXIC BRAIN DAMAGE, NOT ELSEWHERE CLASSIFIED SNOMED Code(s): 652738057 (4) Cardiac arrest Current Visit: Yes Status: Acute Code(s): I46.9 - CARDIAC ARREST, CAUSE UNSPECIFIED SNOMED Code(s): 923140415
[2020-04-03] MEDS: SODIUM CHLORIDE 0.9% 1,000 ML IV SCH (18:01)
[2020-04-03] MEDS: HYDROmorphone 0.5 MG/0.5 ML SYRINGE IVP PRN (18:16)
[2020-04-03 19:58] LABS: Glucose,Whole Blood 137 mg/dL (75-99)
[2020-04-03] MEDS: INSULIN DETEMIR (LEVEMIR) 100 UNIT/ML SYR SQ SCH (20:03)
--- NOTE | 2020-04-03 21:40 | P.PN ---
Progress Note - Text Progress Note Date: 04/03/20 Chief Complaint: Decreased responsiveness History of presenting complaint: This is a 64-year-old patient of Dr. Finley. Chronic stable medical conditions include hypertension, hyperlipidemia, diabetic peripheral neuropathy. was in the hospital in October 2018 having cardiac arrest following LAD angioplasty. Also pulmonary oyaurtyd-sfsyavtqnf-vlpa was felt a left vocal cord paralysis probably from intubation. Patient was brought in by the EMS. Family had called closure short of breath. While they were on the phone vacation became unresponsive and collapsed into the bed. Then begin using a bag valve mask ventilation. When the EMS arrived patient was unresponsive she also went into ventricular fibrillation. She received 1 mg of epinephrine 1 shock and patient then came around. Downtime was about 10 minutes. Patient is in the ICU. On the ventilator. FiO2 50% and a PEEP of 5. Patient is on IV propofol and norepinephrine. Telemetry shows sinus rhythm. Has an NG tube. Per cardiology notes her EF is 35%. In the past. admitted with-cardiac arrest with underlying rhythm of ventricular fibrillation the downtime of tenderness, cardioverted, acute hypoxic respiratory failure on the ventilator, acute CHF exacerbation, lactic acidosis likely type II, aspiration pneumonia, and acute COPD exacerbation.started on IV Zosyn, IV Solu- Medrol. Initially intubated. Put on Cleviprex drip for blood pressure. Based on EEG placed on IV Keppra per neurology. Dose of Neurontin scaled back. Because of renal failure. Had a PEG tube placed. Sgewa-[id number] on trach collar. 35%. sinus rhythm. Tube feeding at goal at 50 mL an hour. No spontaneous movements. Review of systems:-Patient doesn't follow commands Active Medications Acetaminophen (Acetaminophen Tab 325 Mg Tab) 650 mg PO Q4HR PRN PRN Reason: Fever and/or Mild Pain Last Admin: 03/31/20 09:16 Dose: 650 mg Documented by: Albuterol/Ipratropium (Ipratropium-Albuterol 3 Ml Neb) 3 ml INHALATION RT-Q2H PRN PRN Reason: Shortness Of Breath Or Wheezing Albuterol/Ipratropium (Ipratropium-Albuterol 3 Ml Neb) 3 ml INHALATION RT-QID [facility] Last Admin: 04/03/20 21:12 Dose: 3 ml Documented by: Amlodipine Besylate (Amlodipine 10 Mg Tab) 10 mg PO DAILY [facility] Last Admin: 04/03/20 08:20 Dose: 10 mg Documented by: Aspirin (Aspirin 81 Mg) 81 mg PO DAILY [facility] Last Admin: 04/03/20 08:20 Dose: 81 mg Documented by: Carvedilol (Carvedilol 12.5 Mg Tab) 12.5 mg PO BID-W/MEALS [facility] Last Admin: 04/03/20 17:00 Dose: 12.5 mg Documented by: Docusate Sodium (Docusate Oral Soln 100 Mg/10 Ml Cup) 100 mg PO DAILY [facility] Last Admin: 04/03/20 08:20 Dose: 100 mg Documented by: Ezetimibe (Ezetimibe 10 Mg Tab) 10 mg PO DAILY [facility] Last Admin: 04/03/20 08:50 Dose: 10 mg Documented by: Furosemide (Furosemide 10 Mg/Ml 4 Ml Vial) 40 mg IV DAILY [facility] Last Admin: 04/03/20 08:19 Dose: 40 mg Documented by: Gabapentin (Gabapentin 300 Mg Cap) 300 mg PO TID [facility] Last Admin: 04/03/20 20:56 Dose: 300 mg Documented by: Heparin Sodium (Porcine) (Heparin Sodium,Porcine 5,000 Unit/Ml 1 Ml Vial) 5,000 unit SQ Q8HR [facility] Last Admin: 04/03/20 17:00 Dose: 5,000 unit Documented by: Hydromorphone HCl (Hydromorphone 0.5 Mg/0.5 Ml Syringe) 0.5 mg IVP Q6HR PRN PRN Reason: Pain Last Admin: 04/03/20 18:16 Dose: 0.5 mg Documented by: Hydromorphone HCl (Hydromorphone 1 Mg/Ml 1 Ml Syringe) 1 mg IVP Q6HR PRN PRN Reason: Pain Last Admin: 04/01/20 05:17 Dose: 1 mg Documented by: Sodium Chloride (Saline 0.9%) 1,000 mls @ 20 mls/hr IV .Q24H [facility] Last Admin: 04/03/20 18:01 Dose: Not Given Documented by: Lactated Ringer's (Lactated Ringers) 1,000 mls @ 20 mls/hr IV .Q24H [facility] Last Admin: 04/03/20 17:01 Dose: 20 mls/hr Documented by: Insulin Aspart (Insulin Aspart (Novolog) 100 Unit/Ml Vial) 0 unit SQ Q4H [facility]; Protocol Last Admin: 04/03/20 20:03 Dose: 1 unit Documented by: Insulin Detemir (Insulin Detemir (Levemir) 100 Unit/Ml Syr) 22 unit SQ HS [facility] Last Admin: 04/03/20 20:03 Dose: 22 unit Documented by: Levetiracetam (Levetiracetam 500 Mg Tab) 500 mg PO Q12HR [facility] Last Admin: 04/03/20 20:56 Dose: 500 mg Documented by: Lisinopril (Lisinopril 10 Mg Tab) 10 mg PO DAILY [facility] Last Admin: 04/03/20 08:20 Dose: 10 mg Documented by: Lorazepam (Lorazepam 2 Mg/Ml Inj) 1 mg IV Q4HR PRN PRN Reason: Seizures Last Admin: 03/26/20 18:52 Dose: 1 mg Documented by: Miscellaneous Information (Magnesium Replacement Protocol 1 Each Mis) 1 each MISCELLANE DAILY PRN; Protocol PRN Reason: Per Protocol Miscellaneous Information (Potassium Replacement Protocol 1 Each Mis) 1 each MISCELLANE DAILY PRN; Protocol PRN Reason: Per Protocol Naloxone HCl (Naloxone 0.4 Mg/Ml 1 Ml Vial) 0.2 mg IV Q2M PRN PRN Reason: Opioid Reversal Pantoprazole Sodium (Pantoprazole 40 Mg/10 Ml Vial) 40 mg IVP DAILY [facility] Last Admin: 04/03/20 08:19 Dose: 40 mg Documented by: Prasugrel (Prasugrel 10 Mg Tab) 10 mg PO DAILY [facility] Last Admin: 04/03/20 08:20 Dose: 10 mg Documented by: Senna (Sennosides 8.6 Mg Tab) 8.6 mg PO BID PRN PRN Reason: Constipation Last Admin: 03/31/20 09:15 Dose: 8.6 mg Documented by: Physical examination: VITAL SIGNS: 99.7, 79, 28, 145/63, 96% on trach collar GENERAL: laying in bed, lethargic EYES: Pupils equal. Conjunctiva normal. NECK: JVD unable to assess, masses not palpable.stoma with the tracheostomy trach collar HEART: First and second heart sounds are normal; no edema. LUNGS: Respiratory rate increased, decreased breath sounds ABDOMEN: Soft, nontender, liver spleen not palpable, no masses palpable. PSYCH: Unable to assess NEUROLOGICAL: Nonpurposeful movement to painful stimuli INVESTIGATIONS, reviewed in the clinical context: Potassium 3.7 creatinine 0.98 Accu-Cheks to 242, 218 Chest x-ray possibly some infiltrate 2-D echocardiogram-EF 60-65%, mild to moderate pulmonary hypertension Repeat EEG-March 23-showing generalized cerebral dysfunction EEG suggestive of generalized cerebral dysfunction Admission testing White count 10.1 hemoglobin 13.4 platelets 293 potassium 5.8 bicarb 17 bun 42 creatinine 1.81 blood glucose 458 lactic acid 8.1 Troponin I less than 0.012, 0.056,0.085 EKG tracing personally reviewed by me-sinus rhythm low-voltage right bundle branch block pattern Computed tomography scan of the brain-negative Chest x-ray film personally reviewed by me-portable cardiomegaly venous prominence Assessment: -Cardiac arrest with underlying rhythm of ventricle fibrillation, with downtime of 10 minutes cardioverted, 1 dose of epinephrine -Acute hypoxic respiratory failure, requiring ventilator support-slow to respond -Acute on chronic congestive heart failure exacerbation from systolic dysfunction EF 25% -Lactic acidosis most likely type II. Cannot rule out infectious process. -Possible aspiration pneumonia -Acute COPD exacerbation in an ex-smoker, exposed to secondhand smoking-slow to respond -Possible tracheal stenosis following intubation -History of cardiac arrest following stenting to LAD -Coronary artery disease with stent to LAD -Diabetes mellitus 2 uncontrolled with hyper glycemia on insulin drip secondary to steroids -Essential hypertension -Hyperlipidemia -Diabetic peripheral neuropathy -Left vocal cord paralysis from intubation -Obesity BMI 33.9 -Consider anoxic brain injury. / encephalopathy.-Slow to respond. -Secondary pulmonary hypertension -PEG tube placed today March [address] Amador Plan: continue current medication treatment plan. Prognosis remains guarded. We'll increase the Levemir to 26 units starting tonight.
[2020-04-03] MEDS ORDERED: INSULIN DETEMIR (LEVEMIR) 100 UNIT/ML SYR SQ SCH (22:00)
[2020-04-03 23:29] LABS: Glucose,Whole Blood 190 mg/dL (75-99)
[2020-04-04 03:42] LABS: Glucose,Whole Blood 271 mg/dL (75-99)
[2020-04-04] MEDS: INSULIN ASPART (NovoLOG) 100 UNIT/ML VIAL SQ SCH ×6 (03:49→23:51)
[2020-04-04 04:05] LABS: Basophils # (A) 0.1 k/uL (0-0.2); Basophils % (A) 1 %; Eosinophils # (A) 0.2 k/uL (0-0.7); Eosinophils % (A) 2 %; HCT 32.2 % (34.0-46.0); HGB 10.1 gm/dL (11.4-16.0); Hypochromasia Slight; Lymphocytes # (A) 1.1 k/uL (1.0-4.8); Lymphocytes % (A) 10 %; MCH 28.2 pg (25.0-35.0); MCHC 31.2 g/dL (31.0-37.0); MCV 90.4 fL (80.0-100.0); Mean Platelet Volume 8.5; Monocytes # (A) 0.4 k/uL (0-1.0); Monocytes % (A) 3 %; Neutrophils # (A) 9.4 k/uL (1.3-7.7); Neutrophils % (A) 84 %; Platelet Count 270 k/uL (150-450); RBC 3.56 m/uL (3.80-5.40); RDW 14.9 % (11.5-15.5); WBC 11.3 k/uL (3.8-10.6)
[2020-04-04 04:33] LABS: Calcium 8.8 mg/dL (8.4-10.2); Potassium 4.1 mmol/L (3.5-5.1); Total Bilirubin 0.7 mg/dL (0.2-1.3)
[2020-04-04 04:45] LABS: ABG HCO3 32 mmol/L (21-25); ABG PCO2 44 mmHg (35-45); ABG PH 7.47 (7.35-7.45); ABG PO2 102 mmHg (83-108); ABG TCO2 33 mmol/L (19-24); Allen Test Performed? Yes
[2020-04-04] MEDS: carvediloL 12.5 MG TAB PO SCH ×2 (06:46→16:41)
--- NOTE | 2020-04-04 07:22 | XR ---
EXAMINATION TYPE: XR chest 1V DATE OF EXAM: 04/04/2020 COMPARISON: 04/02/2020 INDICATION: Short of breath TECHNIQUE: Single frontal view of the chest is obtained. FINDINGS: The heart size is very prominent. The pulmonary vasculature is normal. There is continued improvement of the lung aeration. Residual remains at the left base. Tracheostomy tube is in the midline. PICC line enters on the right with the tip in the proximal right atrium IMPRESSION: 1. Continued improving left lower lobe infiltrate.
[2020-04-04 08:05] LABS: Glucose,Whole Blood 315 mg/dL (75-99)
[2020-04-04] MEDS: IPRATROPIUM-ALBUTEROL 3 ML NEB INHALATION SCH ×4 (08:19→19:18)
[2020-04-04] MEDS: FUROSEMIDE 10 MG/ML 4 ML VIAL IV SCH (08:21)
[2020-04-04] MEDS: PANTOPRAZOLE 40 MG/10 ML VIAL IVP SCH (08:21)
[2020-04-04] MEDS: lisinopriL 10 MG TAB PO SCH (08:22)
[2020-04-04] MEDS: EZETIMIBE 10 MG TAB PO SCH (08:22)
[2020-04-04] MEDS: DOCUSATE ORAL SOLN 100 MG/10 ML CUP PO SCH (08:22)
[2020-04-04] MEDS: levETIRAcetam 500 MG TAB PO SCH ×2 (08:22→21:22)
[2020-04-04] MEDS: GABAPENTIN 300 MG CAP PO SCH ×3 (08:22→21:22)
[2020-04-04] MEDS: PRASUGREL 10 MG TAB PO SCH (08:22)
[2020-04-04] MEDS: ASPIRIN 81 MG PO SCH (08:22)
[2020-04-04] MEDS: HEPARIN SODIUM,PORCINE 5,000 UNIT/ML 1 ML VIAL SQ SCH ×3 (08:22→23:51)
[2020-04-04] MEDS: amLODIPine 10 MG TAB PO SCH (08:22)
--- NOTE | 2020-04-04 11:39 | P.PN ---
Subjective Progress Note Date: 04/04/20 64-year-old male patient with known history of coronary artery disease and previous cardiac arrest that goes back in October 2018. At that time the patient had an elective cardiac catheterization and the patient was found to have mild LAD lesion. During the procedure, the patient went into a cardiac arrest and angioplasty was performed. However, the patient developed profound hypotension and went into a PEA rhythm. At that time the patient had a cardiac arrest for a total of 60 minutes in the [place]. During that time, the patient had a stent to the LAD and the patient was resuscitated and Levaquin prescription assisted device was inserted and the patient was eventually transferred to the intensive care unit. The patient prolonged course of intubation mechanical ventilation and ultimately the patient was discharged on 10/17/2019. At that time, the patient is systolic heart failure with an ejection fraction of 35%. The patient also known to have COPD and possibly a left cord paralysis as the patient had intermittent episodes of stridor. The patient was again seen as an inpatient on 03/23/2019 at that time he was having shortness of breath and stridor and eventually the patient a tracheostomy tube placed. His tracheostomy was done on 05/14/2019 at [facility]. The patient was brought him back to the hospital on 03/20/2020 for another episode of cardiopulmonary arrest. Apparently the patient was found to be unresponsive and the scene and the patient collapsed and she was pulseless. She was in ventricular fibrillation. She was given epinephrine and she was shocked/defibrillator. CPR was numb for a total of 5 minutes and following that there was a spontaneous return of circulation. The patient was brought into the hospital unresponsive. CAT scan of the brain was negative. Comorbidities include diabetes mellitus, hypertension, hyperlipidemia, coronary artery disease, diabetes mellitus related peripheral neuropathy and as mentioned previous history of cardiac arrest that occurred in October 2018. During this current admission, the patient had insertion of a PEG tube. She remains on a mechanical ventilator. . The patient has anoxic encephalopathy with the latest EEG that was done on 03/27/2020 showing abnormal EEG with moderate slowing in generalized cerebral dysfunction without any seizure. The echocardiogram was done on 03/22/2020 showed improvement in function with an ejection fraction of 60-65% and there was no valvular abnormalities noted. The patient had a picc line in the RUE. The patient is covered with IV Zosyn for possible aspiration pneumonia. The patient is currently on D5 water. The patient is on Cleviprex 1 mg an hour from BP control. The patient remains on a mechanical ventilator. The patient has a #[address] This morning the patient is on assist control mode at the rate of 24 with a tidal volume of 650 and FiO2 of 35% with a PEEP of 5. The blood gases from this morning showed a pH of 7.44 with a pCO2 of 39 and pO2 of 74 and the chest x-ray shows some limited atelectatic changes in lung bases and the tracheostomy tube was in a good location. The patient is on D5 water infusion at the rate of 75 mL an hour and sodium level is improving is down to 138. The patient was taken to the operating room by general surgery. An attempt was done to revise a tracheostomy tube and it failed. The patient was not able to get intubated by anesthesia as there was significant narrowing and the intubation process failed even with a smaller bronchoscope. Based on that, the procedure got canceled. The patient remains off sedation. The patient is withdrawing only to deep painful stimulation. She will occasionally get emesis. She does not follow any commands. No purposeful movement at this point in time. On 03/30/2020, the patient is still off sedation, still encephalopathic and this is attributed to hypoxic encephalopathy. The patient earlier this morning was on a mechanical ventilator. I took her off the mechanical ventilator and I put the patient a trach collar and the patient did well without any major difficulties. She was placed on a 40% trach collar. She is able to cough and she is able to clear respiratory secretions. The patient does not have any major respiratory secretions. Earlier this morning, she wasn't an FiO2 of 35% with a PEEP of 5 and I was able to switch her and transition her to a trach collar. She is tolerating her enteral feeding for nutritional support. She is on limited stable. IV fluids are running at 75 mL an hour. No fever. No chills. No aspiration. Chest x-ray from today is showing adequate positioning of the tracheostomy tube and there is also some mild improved aeration on the bilateral lungs and there is some limited infiltration of the lung bases bilaterally. The patient is currently off the clevidipine drip and the blood pressures under better control at the patient is receiving a combination of Zestril and Coreg. The patient is continuing the course of antibiotics and IV Zosyn. IV fluids were running at 75 mL an hour and I cut it down to 20 mL an hour as maintenance. No other significant events. I also performed a bedside bronchoscopy on this patient in the upper airway inspection showed that the pat jamesnt's cords were not fully functional. There was some mobility with abduction yet the extent of adduction was not enough for me to pass my bronchoscope past the vocal cords. There may be also some underlying subglottic stenosis which I was unable to visualize. 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 Currently the patient has a #[address] 03/31/2020, the patient continues to have signs of anoxic encephalopathy. the patient is unresponsive. The patient was on a assist-control mode of ventilation with a tidal volume of 350 and the rate of 24 with an FiO2 of 35% and a PEEP of 5. I switched her to 35% trach collar. She is in a positive fluid balance. The input output balance was +2.3 L over the past 24 hours and the patient is receiving enteral feeding for nutritional support and she is on vital high protein at the rate of 34 mL an hour. She has completed the course of IV Zosyn. No respiratory secretions. Tracheostomy tube is in place. We are still awaiting clearance and insurance authorization to transfer this patient to [facility]. The patient has no seizure activity. Remains unresponsive. Opens her eyes spontaneously. Does not follow any commands. She is getting more contracted an upper and lower extremities. Her next images are also edematous. She is taking no sedation for now. 04/01/2020, the patient is on 35% trach collar. She is quite comfortable. Neurologically no improvement. No purposeful movement. No response pH opens up her eyes. She has an adequate cough. She is tolerating her enteral feeding for nutritional support. She is afebrile. She is of Zosyn. She is making good ur ine output and the patient is being diuresis with Lasix 40 g IV every 24 hours in that fluid balance is -1.1 L over the past 24 hours. Enterofeeding is in the form of vital high protein 1.2 at the rate of 50 mL an hour. No other significant events overnight. No respiratory secretions. Chest x-ray findings and essentially unchanged and the patient is likely going to a residential locally. I'm willing to make recommendations to move this patient today medical floor for another 24 hours of monitoring. 04/02/2020, the patient is on a trach collar at 35% FiO2. Doing well. Neurologically impaired. She isn't anoxic encephalopathy and no clinical response. She is being diuresed gently. Menstrual balance is -1.5 L over the past 24 hours and her edema is also improving. The patient is on enteral nutrition with high protein vital feeds at the rate of 34 mL an hour. She is tolerating enteral feeding. No aspiration. She did have a bowel movement yesterday. Otherwise, she is afebrile. Chest x-ray findings from today quite stable and the patient is on no antibiotics for now. The patient's chest x-ray shows some interval improvement in aeration of the left lung and a tracheostomy tube is overlying the tracheal air column. 3120, the patient is doing well. Earlier this morning, she had some increased tachypnea and the patient was placed on a 60% trach collar. I was able to suction her tracheostomy and I'm trying to wean her down again to 35% trach collar. She is hemodynamically stable and the patient is being diuresed with IV Lasix. She is on normal saline 20 mL an hour. He is on vital AF at 50 mL an hour. Ultimate aim and goal is to transfer this patient to a residential. This will be happening probably by Sunday. BP is under good control. The patient remains on a combination of Norvasc and Zestril. The patient on Keppra for seizure prophylaxis. She remains in anoxic encephalopathy. No change in her neurologic functions. 04/04/20, the patient is back on mechanical ventilator. Note that after being on trach collar for around 24 hours, the patient became progressively more short of breath and labored in terms of her breathing. The chest x-ray was not showing any acute abnormalities. In fact left lower lobe infiltrated. I think the work of breathing is quite high while breathing through a smaller caliber tracheostomy tube and that could be the reason why the patient became more labored in terms of her breathing. No respiratory secretions. She is still on Lasix on a daily basis. She maintains a negative fluid balance pH is tolerating enteral feeding for nutritional support. She remains anoxic and there is no improvement in neurologic functions over the past 24 hours. Objective - Vital Signs Vital signs: Vital Signs Temp 99.4 F 04/04/20 04:00 Pulse 63 04/04/20 08:44 Resp 24 04/04/20 08:00 BP 134/66 04/04/20 08:00 Pulse Ox 96 04/04/20 08:00 Intake & Output 04/03/20 04/04/20 04/04/20 19:59 06:59 18:59 Intake Total 70 Output Total 60 Balance 10 Weight Intake: IV 20 0.9% Na 20 Intake, IV Titration Amount Sodium Chloride 0.9% 1, 000 ml @ 20 mls/hr IV . Q24H [facility] Rx#:[id number] Tube Feeding 50 Other Output: Urine 60 Other: Voiding Method Indwelling Catheter # Voids ABP, PAP, CO, CI - Last Documented Arterial Blood Pressure 136/50 - Exam Gen. appearance the patient is calm and comfortable, not responsive, currently she is mechanical ventilator on assist control mode at a rate of 24 with a tidal volume of 350 and FiO2 of 35% with a PEEP of 5. The peak airway pressures around 30. Static pressure on 17. Head exam was generally normal. There was no scleral icterus or corneal arcus. Mucous membranes were moist. Neck was supple and without jugular venous distension, thyromegaly, or carotid bruits. Carotids were easily palpable bilaterally. There was no adenopathy.the patient is a tracheostomy tube in place and the patient has a #4 Shiley tracheostomy tube in place. Cardiac exam revealed the PMI to be normally situated and sized. The rhythm was regular and no extrasystoles were noted during several minutes of auscultation. The first and second heart sounds were normal and physiologic splitting of the second heart sound was noted. There were no murmurs, rubs, clicks, or gallops. Lungs sounds are diminished and the patient is some few scattered rhonchi and somewhat coarse. No wheezes or crackles. Breath sounds are equal and symmetrical at this point in time. Abdominal exam revealed normal bowel sounds. The abdomen was soft, non-tender, and without masses, organomegaly, or appreciable enlargement of the abdominal aorta.. The patient has a PEG tube in place and the patient is a colostomy Examination of the extremities revealed easily palpable radial, femoral and pedal pulses. There was no cyanosis, clubbing or edema. Examination of the skin revealed no evidence of significant rashes, suspicious appearing nevi or other concerning lesions. Neurologically the patient is nonverbal and the patient is not responsive to any verbal or painful stimulation. Neurologic exam is essentially unchanged compared to yesterday. Motor and sensory function cannot be assessed. The p atient may grimace and do some slight withdrawing to deep painful stimulation to her upper extremity. Otherwise, she doesn't following commands. No nystagmus. No preferential gaze. - Labs CBC & Chem 7: 04/04/20 04:00 04/04/20 04:00 Labs: Abnormal Lab Results - Last 24 Hours (Table) 04/03/20 04/03/20 04/03/20 Range/Units 16:55 19:56 23:27 WBC (3.8-10.6) k/uL RBC (3.80-5.40) m/uL Hgb (11.4-16.0) gm/dL Hct (34.0-46.0) % Neutrophils # (1.3-7.7) k/uL ABG pH (7.35-7.45) ABG HCO3 (21-25) mmol/L ABG Total CO2 (19-24) mmol/L ABG O2 Saturation (94-97) % Carbon Dioxide (22-30) mmol/L BUN (7-17) mg/dL Creatinine (0.52-1.04) mg/dL Glucose (74-99) mg/dL POC Glucose (mg/dL) 193 H 137 H 190 H (75-99) mg/dL AST (14-36) U/L Alkaline Phosphatase (38-126) U/L Total Protein (6.3-8.2) g/dL Albumin (3.5-5.0) g/dL 04/04/20 04/04/20 04/04/20 Range/Units 03:41 04:00 04:00 WBC 11.3 H (3.8-10.6) k/uL RBC 3.56 L (3.80-5.40) m/uL Hgb 10.1 L (11.4-16.0) gm/dL Hct 32.2 L (34.0-46.0) % Neutrophils # 9.4 H (1.3-7.7) k/uL ABG pH (7.35-7.45) ABG HCO3 (21-25) mmol/L ABG Total CO2 (19-24) mmol/L ABG O2 Saturation (94-97) % Carbon Dioxide 32 H (22-30) mmol/L BUN 40 H (7-17) mg/dL Creatinine 1.11 H (0.52-1.04) mg/dL Glucose 294 H (74-99) mg/dL POC Glucose (mg/dL) 271 H (75-99) mg/dL AST 49 H (14-36) U/L Alkaline Phosphatase 158 H (38-126) U/L Total Protein 6.0 L (6.3-8.2) g/dL Albumin 3.0 L (3.5-5.0) g/dL 04/04/20 04/04/20 Range/Units 04:43 08:04 WBC (3.8-10.6) k/uL RBC (3.80-5.40) m/uL Hgb (11.4-16.0) gm/dL Hct (34.0-46.0) % Neutrophils # (1.3-7.7) k/uL ABG pH 7.47 H (7.35-7.45) ABG HCO3 32 H (21-25) mmol/L ABG Total CO2 33 H (19-24) mmol/L ABG O2 Saturation 98.0 H (94-97) % Carbon Dioxide (22-30) mmol/L BUN (7-17) mg/dL Creatinine (0.52-1.04) mg/dL Glucose (74-99) mg/dL POC Glucose (mg/dL) 315 H (75-99) mg/dL AST (14-36) U/L Alkaline Phosphatase (38-126) U/L Total Protein (6.3-8.2) g/dL Albumin (3.5-5.0) g/dL Assessment and Plan Plan: 1 anoxic encephalopathy secondary to cardiopulmonary arrest. I believe that this was mainly a respiratory arrest followed by cardiac arrest. The patient has significant abnormalities in the upper airway when the vocal cords are pretty much nonfunctional and this probably contributed to her cardiac pulmonary arrest. She continues to be in anoxic encephalopathy and she remains unresponsive. 2 anoxic encephalopathy secondary to above, the patient continues to be deeply encephalopathic, unresponsive to any verbal stimulation, may withdrawal or grimace to deep painful stimulation and her overall neurologic function have remained unchanged . The patient remains unresponsive. No change in her neurologic functions and status. 3 chronic respiratory failure, hypoxic in nature and the patient has a tracheostomy tube in place, and this is a #4 Shiley tracheostomy tube. A bronchoscopy and upper airway inspection was done. Consider the possibility of a severe subglottic stenosis probably related to previous tracheostomy tube insertion and probably related to previous intubation. The patient is also suspected to have a vocal cord paralysis as the patient was not found to have complete ability to abduct the vocal cords.. I believe that the patient's recurrent respiratory failure is probably related to the increased work of breathing while waiting for a smaller caliber Shiley tracheostomy tube which is #4. She is currently on a mechanical ventilator. I will discuss again with ENT and look for any other intervention that can be done to place a larger tracheostomy tube. This is not possible, she may need to be vent dependent for long period of time. Family history updated on this situation. She has no pneumonia for now and antibiotics have been discontinued and the chest x-ray shows no acute pulmonary infiltration. No significant respiratory secretions for now. 4 PEG tube for enteral feeding and nutritional support, postop day # 9 5 possible aspiration pneumonia . The course of IV Zosyn and currently she is off antibiotics 6 history of ischemic cardiomyopathy with a recent echocardiogram showed improvement in LV function with normalization of the LV 7 history of previous tracheostomy tube insertion, inserted for stridor and respiratory difficulty, requiring insertion and removal of tracheostomy tube. 8 COPD 9 coronary artery disease with previous stenting of the LAD 1o previous history of cardiac arrest from 2008 11 Hypertension and the blood pressure is under better control for now. 12 diabetic peripheral neuropathy 13 hypernatremia, improved, 14 edema with third spacing, improving with diuresis. Plan IV fluids to 20 mL an hour Lasix 40 mg IV every 24 hours, and this is being administered on a daily basis Keep the patient on mechanical ventilator. I think this patient will not tolerate trach collar for long period of time. After being on trach collar for 48 hours, she became quite restless and she developed labored breathing and she had to be less on a mechanical ventilation. I think this is related to increased work of breathing as the patient is breathing through a smaller bore tracheostomy tube. Note that upsizing the tracheostomy tube was not possible as the patient did not have any access to her upper airway and she was unable to get intubated by anesthesia. As such, we #4 Shiley Tracheostomy [address] in Place. I Am Considering Long-Term Vent Care. If the Family Is Interested, She Can Go to Another Facility Where the Division of the Tracheostomy Tube Can Be Done. We'll continue the supportive care, including enteral feeding for nutritional support We'll continue to follow, condition remains critical, prognosis poor baseline above-mentioned comorbidities. Time with Patient: Greater than 30
[2020-04-04 11:49] LABS: Glucose,Whole Blood 121 mg/dL (75-99)
--- NOTE | 2020-04-04 13:34 | P.PN ---
Subjective Progress Note Date: 04/04/20 CHIEF COMPLAINT: Status post PEG tube placement HISTORY OF PRESENT ILLNESS: The patient is a 64-year-old female status post PEG tube placement for protein malnutrition. She had placement of a pediatric tracheostomy tube with questionable features of vocal cord paralysis. Yesterday she was on trach collar heart was placed back on full mechanical ventilation. No significant improvement otherwise. Trach care being performed at bedside by nurse. ROS: No fevers or chills. No new chest pain. History of change of trach PHYSICAL EXAM: VITAL SIGNS: Reviewed CONSTITUTIONAL: Well developed and in no acute distress. EYES: Conjuctivae without sclera icterus. Extraocular movements grossly intact. HEAD, EARS, NOSE, THROAT: Moist buccal mucosa. Head is atraumatic, normocephalic. No nasal drainage. NECK: Trach intact. RESPIRATORY: Non-labored respirations and equal bilateral excursions. CARDIOVASCULAR: Palpable 2+ radial pulses. ABDOMEN: G-tube intact. MUSCULOSKELETAL: No gross deformity of the lower extremities noted. No clubbing. No cyanosis. Has PRAFO boots SKIN: Good skin turgor. Well perfused. NEUROLOGIC: Cranial nerves II through XII grossly intact. No focal or latera lizing signs. PSYCH: Appropriate affect. Alert and oriented to person, place and time. CLINICAL LABS: White blood cell count 11.1, yesterday now 11.3. ASSESSMENT: 1. Protein malnutrition status post PEG tube placement 2. Anoxic encephalopathy 3. Vent dependent respiratory failure PLAN: 1. Overall, condition guarded. 2. No surgical intervention needed. 3. Await transfer to [facility] when stable Objective - Vital Signs Vital signs: Vital Signs Temp 99.4 F 04/04/20 04:00 Pulse 63 04/04/20 08:44 Resp 24 04/04/20 08:00 BP 134/66 04/04/20 08:00 Pulse Ox 96 04/04/20 08:00 Intake & Output 04/03/20 04/04/20 04/04/20 19:59 06:59 18:59 Intake Total 70 Output Total 60 Balance 10 Weight Intake: IV 20 0.9% Na 20 Intake, IV Titration Amount Sodium Chloride 0.9% 1, 000 ml @ 20 mls/hr IV . Q24H [facility] Rx#:[id number] Tube Feeding 50 Other Output: Urine 60 Other: Voiding Method Indwelling Catheter # Voids ABP, PAP, CO, CI - Last Documented Arterial Blood Pressure 136/50 - Labs CBC & Chem 7: 04/04/20 04:00 04/04/20 04:00 Labs: Abnormal Lab Results - Last 24 Hours (Table) 04/03/20 04/03/20 04/03/20 Range/Units 16:55 19:56 23:27 WBC (3.8-10.6) k/uL RBC (3.80-5.40) m/uL Hgb (11.4-16.0) gm/dL Hct (34.0-46.0) % Neutrophils # (1.3-7.7) k/uL ABG pH (7.35-7.45) ABG HCO3 (21-25) mmol/L ABG Total CO2 (19-24) mmol/L ABG O2 Saturation (94-97) % Carbon Dioxide (22-30) mmol/L BUN (7-17) mg/dL Creatinine (0.52-1.04) mg/dL Glucose (74-99) mg/dL POC Glucose (mg/dL) 193 H 137 H 190 H (75-99) mg/dL AST (14-36) U/L Alkaline Phosphatase (38-126) U/L Total Protein (6.3-8.2) g/dL Albumin (3.5-5.0) g/dL 04/04/20 04/04/20 04/04/20 Range/Units 03:41 04:00 04:00 WBC 11.3 H (3.8-10.6) k/uL RBC 3.56 L (3.80-5.40) m/uL Hgb 10.1 L (11.4-16.0) gm/dL Hct 32.2 L (34.0-46.0) % Neutrophils # 9.4 H (1.3-7.7) k/uL ABG pH (7.35-7.45) ABG HCO3 (21-25) mmol/L ABG Total CO2 (19-24) mmol/L ABG O2 Saturation (94-97) % Carbon Dioxide 32 H (22-30) mmol/L BUN 40 H (7-17) mg/dL Creatinine 1.11 H (0.52-1.04) mg/dL Glucose 294 H (74-99) mg/dL POC Glucose (mg/dL) 271 H (75-99) mg/dL AST 49 H (14-36) U/L Alkaline Phosphatase 158 H (38-126) U/L Total Protein 6.0 L (6.3-8.2) g/dL Albumin 3.0 L (3.5-5.0) g/dL 04/04/20 04/04/20 04/04/20 Range/Units 04:43 08:04 11:48 WBC (3.8-10.6) k/uL RBC (3.80-5.40) m/uL Hgb (11.4-16.0) gm/dL Hct (34.0-46.0) % Neutrophils # (1.3-7.7) k/uL ABG pH 7.47 H (7.35-7.45) ABG HCO3 32 H (21-25) mmol/L ABG Total CO2 33 H (19-24) mmol/L ABG O2 Saturation 98.0 H (94-97) % Carbon Dioxide (22-30) mmol/L BUN (7-17) mg/dL Creatinine (0.52-1.04) mg/dL Glucose (74-99) mg/dL POC Glucose (mg/dL) 315 H 121 H (75-99) mg/dL AST (14-36) U/L Alkaline Phosphatase (38-126) U/L Total Protein (6.3-8.2) g/dL Albumin (3.5-5.0) g/dL Assessment and Plan (1) Inadequate dietary intake of protein Current Visit: Yes Status: Acute Code(s): E63.9 - NUTRITIONAL DEFICIENCY, UNSPECIFIED SNOMED Code(s): 044081979 (2) Endotracheally intubated Current Visit: Yes Status: Acute Code(s): Z97.8 - PRESENCE OF OTHER SPECIFIED DEVICES SNOMED Code(s): 604920821 (3) Anoxic brain damage Current Visit: Yes Status: Acute Code(s): G93.1 - ANOXIC BRAIN DAMAGE, NOT ELSEWHERE CLASSIFIED SNOMED Code(s): 375270070 (4) Cardiac arrest Current Visit: Yes Status: Acute Code(s): I46.9 - CARDIAC ARREST, CAUSE UNSPECIFIED SNOMED Code(s): 065466195
--- NOTE | 2020-04-04 14:20 | P.PN ---
Progress Note - Text Progress Note Date: 04/04/20 Chief Complaint: Decreased responsiveness History of presenting complaint: This is a 64-year-old patient of Dr. Finley. Chronic stable medical conditions include hypertension, hyperlipidemia, diabetic peripheral neuropathy. was in the hospital in October 2018 having cardiac arrest following LAD angioplasty. Also pulmonary wgbomsgk-ohswkttigw-vtit was felt a left vocal cord paralysis probably from intubation. Patient was brought in by the EMS. Family had called closure short of breath. While they were on the phone vacation became unresponsive and collapsed into the bed. Then begin using a bag valve mask ventilation. When the EMS arrived patient was unresponsive she also went into ventricular fibrillation. She received 1 mg of epinephrine 1 shock and patient then came around. Downtime was about 10 minutes. Patient is in the ICU. On the ventilator. FiO2 50% and a PEEP of 5. Patient is on IV propofol and norepinephrine. Telemetry shows sinus rhythm. Has an NG tube. Per cardiology notes her EF is 35%. In the past. admitted with-cardiac arrest with underlying rhythm of ventricular fibrillation the downtime of tenderness, cardioverted, acute hypoxic respiratory failure on the ventilator, acute CHF exacerbation, lactic acidosis likely type II, aspiration pneumonia, and acute COPD exacerbation.started on IV Zosyn, IV Solu- Medrol. Initially intubated. Put on Cleviprex drip for blood pressure. Based on EEG placed on IV Keppra per neurology. Dose of Neurontin scaled back. Because of renal failure. Had a PEG tube placed. [id number]-jygkyrm to respiratory discomfort last night. Had to be put back on the ventilator. Currently on FiO2 35 and a PEEP of 5. Decreased rate secretions. 2 feeding running at 50 mL an hour. Telemetry shows sinus rhythm. Patient may occasionally open eyes.. Review of systems:-Patient doesn't follow commands Active Medications Acetaminophen (Acetaminophen Tab 325 Mg Tab) 650 mg PO Q4HR PRN PRN Reason: Fever and/or Mild Pain Last Admin: 03/31/20 09:16 Dose: 650 mg Documented by: Albuterol/Ipratropium (Ipratropium-Albuterol 3 Ml Neb) 3 ml INHALATION RT-Q2H PRN PRN Reason: Shortness Of Breath Or Wheezing Albuterol/Ipratropium (Ipratropium-Albuterol 3 Ml Neb) 3 ml INHALATION RT-QID [facility] Last Admin: 04/04/20 13:05 Dose: 3 ml Documented by: Amlodipine Besylate (Amlodipine 10 Mg Tab) 10 mg PO DAILY [facility] Last Admin: 04/04/20 08:22 Dose: 10 mg Documented by: Aspirin (Aspirin 81 Mg) 81 mg PO DAILY [facility] Last Admin: 04/04/20 08:22 Dose: 81 mg Documented by: Carvedilol (Carvedilol 12.5 Mg Tab) 12.5 mg PO BID-W/MEALS [facility] Last Admin: 04/04/20 06:46 Dose: 12.5 mg Documented by: Docusate Sodium (Docusate Oral Soln 100 Mg/10 Ml Cup) 100 mg PO DAILY [facility] Last Admin: 04/04/20 08:22 Dose: 100 mg Documented by: Ezetimibe (Ezetimibe 10 Mg Tab) 10 mg PO DAILY [facility] Last Admin: 04/04/20 08:22 Dose: 10 mg Documented by: Furosemide (Furosemide 10 Mg/Ml 4 Ml Vial) 40 mg IV DAILY [facility] Last Admin: 04/04/20 08:21 Dose: 40 mg Documented by: Gabapentin (Gabapentin 300 Mg Cap) 300 mg PO TID [facility] Last Admin: 04/04/20 08:22 Dose: 300 mg Documented by: Heparin Sodium (Porcine) (Heparin Sodium,Porcine 5,000 Unit/Ml 1 Ml Vial) 5,000 unit SQ Q8HR [facility] Last Admin: 04/04/20 08:22 Dose: 5,000 unit Documented by: Hydromorphone HCl (Hydromorphone 0.5 Mg/0.5 Ml Syringe) 0.5 mg IVP Q6HR PRN PRN Reason: Pain Last Admin: 04/03/20 18:16 Dose: 0.5 mg Documented by: Hydromorphone HCl (Hydromorphone 1 Mg/Ml 1 Ml Syringe) 1 mg IVP Q6HR PRN PRN Reason: Pain Last Admin: 04/01/20 05:17 Dose: 1 mg Documented by: Sodium Chloride (Saline 0.9%) 1,000 mls @ 20 mls/hr IV .Q24H [facility] Last Admin: 04/03/20 18:01 Dose: Not Given Documented by: Lactated Ringer's (Lactated Ringers) 1,000 mls @ 20 mls/hr IV .Q24H [facility] Last Admin: 04/03/20 17:01 Dose: 20 mls/hr Documented by: Insulin Aspart (Insulin Aspart (Novolog) 100 Unit/Ml Vial) 0 unit SQ Q4H [facility]; Protocol Last Admin: 04/04/20 12:20 Dose: Not Given Documented by: Insulin Detemir (Insulin Detemir (Levemir) 100 Unit/Ml Syr) 26 unit SQ [facility] Levetiracetam (Levetiracetam 500 Mg Tab) 500 mg PO Q12HR [facility] Last Admin: 04/04/20 08:22 Dose: 500 mg Documented by: Lisinopril (Lisinopril 10 Mg Tab) 10 mg PO DAILY [facility] Last Admin: 04/04/20 08:22 Dose: 10 mg Documented by: Lorazepam (Lorazepam 2 Mg/Ml Inj) 1 mg IV Q4HR PRN PRN Reason: Seizures Last Admin: 03/26/20 18:52 Dose: 1 mg Documented by: Miscellaneous Information (Magnesium Replacement Protocol 1 Each Misc) 1 each MISCELLANE DAILY PRN; Protocol PRN Reason: Per Protocol Miscellaneous Information (Potassium Replacement Protocol 1 Each Misc) 1 each MISCELLANE DAILY PRN; Protocol PRN Reason: Per Protocol Naloxone HCl (Naloxone 0.4 Mg/Ml 1 Ml Vial) 0.2 mg IV Q2M PRN PRN Reason: Opioid Reversal Pantoprazole Sodium (Pantoprazole Sodium 40 Mg Granule Pkt) 40 mg PEG/G-TUBE DAILY [facility] Prasugrel (Prasugrel 10 Mg Tab) 10 mg PO DAILY [facility] Last Admin: 04/04/20 08:22 Dose: 10 mg Documented by: Senna (Sennosides 8.6 Mg Tab) 8.6 mg PO BID PRN PRN Reason: Constipation Last Admin: 03/31/20 09:15 Dose: 8.6 mg Documented by: Physical examination: VITAL SIGNS: 99.4, 60, 24, 106/56, 97% on the ventilator GENERAL: laying in bed, lethargic EYES: Pupils equal. Conjunctiva normal. NECK: JVD unable to assess, masses not palpable.stoma with the tracheostomy- October the ventilator HEART: First and second heart sounds are normal; no edema. LUNGS: Respiratory rate increased, decreased breath sounds ABDOMEN: Soft, nontender, liver spleen not palpable, no masses palpable. PSYCH: Unable to assess NEUROLOGICAL: Nonpurposeful movement to painful stimuli INVESTIGATIONS, reviewed in the clinical context: White count 11.3 hemoglobin 10.1 potassium 4.1 creatinine 1.11 Chest x-ray possibly some infiltrate 2-D echocardiogram-EF 60-65%, mild to moderate pulmonary hypertension Repeat EEG-March 23-showing generalized cerebral dysfunction EEG suggestive of generalized cerebral dysfunction Admission testing White count 10.1 hemoglobin 13.4 platelets 293 potassium 5.8 bicarb 17 bun 42 creatinine 1.81 blood glucose 458 lactic acid 8.1 Troponin I less than 0.012, 0.056,0.085 EKG tracing personally reviewed by me-sinus rhythm low-voltage right bundle branch block pattern Computed tomography scan of the brain-negative Chest x-ray film personally reviewed by me-portable cardiomegaly venous p rominence Assessment: -Cardiac arrest with underlying rhythm of ventricle fibrillation, with downtime of 10 minutes cardioverted, 1 dose of epinephrine -Acute hypoxic respiratory failure, requiring ventilator intermittently with trach collar -Acute on chronic congestive heart failure exacerbation from systolic dysfunction EF 25%-stabilized -Lactic acidosis -Possible aspiration pneumonia -Acute COPD exacerbation in an ex-smoker, exposed to secondhand smoking- -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 / encephalopathy.-Slow to respond. -Secondary pulmonary hypertension -PEG tube placed today March [address] Amador-feeding at goal Plan: continue current medication treatment plan. Prognosis remains guarded. Currently on the ventilator.
[2020-04-04 16:25] LABS: Glucose,Whole Blood 213 mg/dL (75-99)
[2020-04-04] MEDS: SODIUM CHLORIDE 0.9% 1,000 ML IV SCH (16:41)
[2020-04-04 19:32] LABS: Glucose,Whole Blood 121 mg/dL (75-99)
[2020-04-04] MEDS: INSULIN DETEMIR (LEVEMIR) 100 UNIT/ML SYR SQ SCH (20:37)
[2020-04-04 23:49] LABS: Glucose,Whole Blood 244 mg/dL (75-99)
[2020-04-05 04:29] LABS: Glucose,Whole Blood 233 mg/dL (75-99)
[2020-04-05 04:29] LABS: Basophils % (A) 0 %; Eosinophils # (A) 0.1 k/uL (0-0.7); Eosinophils % (A) 1 %; HGB 10.3 gm/dL (11.4-16.0); Hypochromasia Slight; Lymphocytes # (A) 1.2 k/uL (1.0-4.8); Lymphocytes % (A) 11 %; MCH 27.4 pg (25.0-35.0); MCHC 30.2 g/dL (31.0-37.0); MCV 90.7 fL (80.0-100.0); Mean Platelet Volume 8.6; Monocytes # (A) 0.5 k/uL (0-1.0); Monocytes % (A) 5 %; Neutrophils # (A) 8.9 k/uL (1.3-7.7); Neutrophils % (A) 81 %; Platelet Count 255 k/uL (150-450); RBC 3.75 m/uL (3.80-5.40); RDW 15.2 % (11.5-15.5)
[2020-04-05] MEDS: INSULIN ASPART (NovoLOG) 100 UNIT/ML VIAL SQ SCH ×6 (04:32→23:26)
[2020-04-05 04:46] LABS: Albumin 3.1 g/dL (3.5-5.0); Calcium 9.2 mg/dL (8.4-10.2); Total Bilirubin 0.6 mg/dL (0.2-1.3); Total Protein 6.3 g/dL (6.3-8.2)
[2020-04-05] MEDS: LACTATED RINGERS 1,000 ML IV SCH (06:32)
[2020-04-05] MEDS: carvediloL 12.5 MG TAB PO SCH ×2 (06:33→16:34)
[2020-04-05] MEDS: IPRATROPIUM-ALBUTEROL 3 ML NEB INHALATION SCH ×4 (07:16→19:36)
[2020-04-05 08:16] LABS: Glucose,Whole Blood 247 mg/dL (75-99)
[2020-04-05] MEDS: lisinopriL 10 MG TAB PO SCH (08:22)
[2020-04-05] MEDS: PRASUGREL 10 MG TAB PO SCH (08:22)
[2020-04-05] MEDS: levETIRAcetam 500 MG TAB PO SCH ×2 (08:22→20:48)
[2020-04-05] MEDS: amLODIPine 10 MG TAB PO SCH (08:22)
[2020-04-05] MEDS: FUROSEMIDE 10 MG/ML 4 ML VIAL IV SCH (08:22)
[2020-04-05] MEDS: HEPARIN SODIUM,PORCINE 5,000 UNIT/ML 1 ML VIAL SQ SCH ×3 (08:22→23:25)
[2020-04-05] MEDS: GABAPENTIN 300 MG CAP PO SCH ×3 (08:22→20:48)
[2020-04-05] MEDS: ASPIRIN 81 MG PO SCH (08:22)
[2020-04-05] MEDS: EZETIMIBE 10 MG TAB PO SCH (08:23)
[2020-04-05] MEDS: DOCUSATE ORAL SOLN 100 MG/10 ML CUP PO SCH (08:23)
[2020-04-05] MEDS: PANTOPRAZOLE SODIUM 40 MG GRANULE PKT PEG/G-TUBE SCH (08:23)
[2020-04-05 08:46] LABS: ABG Base Excess 9.8 mmol/L; ABG HCO3 33 mmol/L (21-25); ABG Oxygen Saturation 95.2 % (94-97); ABG PCO2 41 mmHg (35-45); ABG PH 7.51 (7.35-7.45); ABG PO2 65 mmHg (83-108); ABG TCO2 34 mmol/L (19-24); Allen Test Performed? Yes
--- NOTE | 2020-04-05 09:27 | XR ---
EXAMINATION TYPE: XR chest 1V DATE OF EXAM: 04/05/2020 COMPARISON: 04/04/2020 HISTORY: Shortness of breath TECHNIQUE: Single frontal view of the chest is obtained. FINDINGS: Tracheostomy tube seen with subsegmental basilar consolidation. No pneumothorax. No overt failure. He art size normal. Atherosclerotic change aorta. IMPRESSION: Bibasilar subsegmental infiltrate appears stable.
[2020-04-05 11:34] LABS: Glucose,Whole Blood 127 mg/dL (75-99)
--- NOTE | 2020-04-05 12:42 | P.PN ---
Subjective Progress Note Date: 04/05/20 CHIEF COMPLAINT: Cardiopulmonary arrest HISTORY OF PRESENT ILLNESS: Patient is a remains in the ICU. She is status post PEG tube placement. She is tolerating tube feeds. Tube feedings are currently at 50 ml/hour. Patient had a temp of 100.7 WBC is 11. Patient having difficulty with trach collar and has been Placed back on mechanical ventilation Chest x-ray by basilar subsegmental infiltrate appears stable PHYSICAL EXAM: VITAL SIGNS: Reviewed. GENERAL: Well-developed in no acute distress. HEENT: No sclera icterus. Extraocular movements grossly intact. Moist buccal mucosa. Head is atraumatic, normocephalic. ABDOMEN: Soft. Nondistended. Nontender. PEG tube site clean dry and intact NEUROLOGIC: Not responsive ASSESSMENT: 1. Status post out of hospital cardiopulmonary arrest 2. Status post mechanical ventilation with insertion of a pediatric tracheostomy tube and a prior tracheostoma site for hypoxic respiratory failure 3. Severe protein calorie malnutrition Status post PEG tube placement 3. Anoxic encephalopathy 4. History of vocal cord paralysis and previous tracheostomy 5. Possible aspiration pneumonia 6. Acute systolic CHF exacerbation 7. History of coronary artery disease with cardiac stents PLAN: -Continue tube feedings for nutritional support -Continue plan as per critical care service Physician Compressor Assembler note has been reviewed by physician. Signing provider agrees with the documented findings, assessment, and plan of care. Objective - Vital Signs Vital signs: Vital Signs Temp 99.9 F H 04/05/20 08:00 Pulse 73 04/05/20 11:04 Resp 25 H 04/05/20 09:00 BP 134/62 04/05/20 09:00 Pulse Ox 93 L 04/05/20 09:00 Intake & Output 04/04/20 04/05/20 04/05/20 18:59 06:59 18:59 Intake Total 840 820 150 Output Total 1185 760 950 Balance -345 60 -800 Weight 97.1 kg 97.1 kg Intake: IV 20 0.9% Na 20 Intake, IV Titration 220 140 100 Amount Lactated Ringers 1,000 ml 40 140 100 @ 20 mls/hr IV .Q24H [facility] Rx#:[id number] Sodium Chloride 0.9% 1, 180 000 ml @ 20 mls/hr IV . Q24H [facility] Rx#:[id number] Tube Feeding 600 600 50 Other 80 Output: Urine 1185 760 950 Other: Voiding Method Indwelling Catheter Indwelling Catheter Indwelling Catheter ABP, PAP, CO, CI - Last Documented Arterial Blood Pressure 136/50 - Labs CBC & Chem 7: 04/05/20 03:18 04/05/20 03:18 Labs: Abnormal Lab Results - Last 24 Hours (Table) 04/04/20 04/04/20 04/04/20 Range/Units 16:23 19:31 23:47 WBC (3.8-10.6) k/uL RBC (3.80-5.40) m/uL Hgb (11.4-16.0) gm/dL MCHC (31.0-37.0) g/dL Neutrophils # (1.3-7.7) k/uL ABG pH (7.35-7.45) ABG pO2 (83-108) mmHg ABG HCO3 (21-25) mmol/L ABG Total CO2 (19-24) mmol/L Carbon Dioxide (22-30) mmol/L BUN (7-17) mg/dL Creatinine (0.52-1.04) mg/dL Glucose (74-99) mg/dL POC Glucose (mg/dL) 213 H 121 H 244 H (75-99) mg/dL AST (14-36) U/L Alkaline Phosphatase (38-126) U/L Albumin (3.5-5.0) g/dL 04/05/20 04/05/20 04/05/20 Range/Units 03:18 03:18 04:27 WBC 11.0 H (3.8-10.6) k/uL RBC 3.75 L (3.80-5.40) m/uL Hgb 10.3 L (11.4-16.0) gm/dL MCHC 30.2 L (31.0-37.0) g/dL Neutrophils # 8.9 H (1.3-7.7) k/uL ABG pH (7.35-7.45) ABG pO2 (83-108) mmHg ABG HCO3 (21-25) mmol/L ABG Total CO2 (19-24) mmol/L Carbon Dioxide 31 H (22-30) mmol/L BUN 42 H (7-17) mg/dL Creatinine 1.16 H (0.52-1.04) mg/dL Glucose 194 H (74-99) mg/dL POC Glucose (mg/dL) 233 H (75-99) mg/dL AST 42 H (14-36) U/L Alkaline Phosphatase 155 H (38-126) U/L Albumin 3.1 L (3.5-5.0) g/dL 04/05/20 04/05/20 04/05/20 Range/Units 08:15 09:44 11:32 WBC (3.8-10.6) k/uL RBC (3.80-5.40) m/uL Hgb (11.4-16.0) gm/dL MCHC (31.0-37.0) g/dL Neutrophils # (1.3-7.7) k/uL ABG pH 7.51 H (7.35-7.45) ABG pO2 65 L (83-108) mmHg ABG HCO3 33 H (21-25) mmol/L ABG Total CO2 34 H (19-24) mmol/L Carbon Dioxide (22-30) mmol/L BUN (7-17) mg/dL Creatinine (0.52-1.04) mg/dL Glucose (74-99) mg/dL POC Glucose (mg/dL) 247 H 127 H (75-99) mg/dL AST (14-36) U/L Alkaline Phosphatase (38-126) U/L Albumin (3.5-5.0) g/dL
--- NOTE | 2020-04-05 13:29 | P.PN ---
Subjective Progress Note Date: 04/05/20 Principal diagnosis: Acute hypoxic or for failure and cardiac arrest This is a 64-year-old female with history of multiple medical problems including coronary artery disease, previous cardiac arrest, going back to Oct 02 2018. Patient was having elective cardiac catheterization and she was found to have a mid LAD lesion. During the procedure, patient went into cardiac arrest, and angioplasty was performed. However patient developed profound hypotension and went into pulseless electrical activity. Patient continues to have on and off hypotension and cardiac arrest for approximately 60 minutes in the Finisher Map And Chart. During this time the patient had LAD stented she was resuscitated, emPella device was used, and she was eventually transferred to the intensive care unit, seen by Dr. Atkinson on consultation. Patient had a prolonged course of intubation and mechanical ventilation, she was eventually discharged on 10/17/19. At that time patient had systolic dysfunction with ejection fraction of 35%. She also had episodes of COPD exacerbation, and she was also noted to have a left vocal cord paralysis, likely related to her intubation. Patient was eventually discharged to [facility], and she continues to have intermittent episodes of stridor. Seen last as inpatient by Dr. Atkinson on 03/23/2019, at the time she was having shortness of breath with inspiratory stridor. And again this was felt to be related to her vocal cord injury/paralysis. Eventually, the patient ended up with a tracheostomy in place, this was supposedly done on outpatient basis. Patient has been following with Dr. Nelson's/ENT for her vocal cord paralysis. Her tracheostomy was done on May 14 2019 at the [facility].Last night the patient was brought into the ER by EMS, patient apparently had a cardiopulmonary arrest. EMS arrived to the scene, patient was unresponsive, apparently she collapsed forward onto bed, patient was Ambu bag, and she was pulseless. Reportedly she went into ventricular fibrillation, she was given 1 mg of epinephrine, and she was shocked once. CPR was roughly lasted 5 minutes, and there was return of spontaneous circulation after 1 epinephrine and 1 shock. Patient was brought into the ER, unresponsive, and an endotracheal tube was placed in the tracheostomy site by EMS, and this was later changed by the ER physician to a tracheostomy connected to mechanical ventilation, patient was admitted to the ICU, and I was asked to see her on consultation. Patient is unresponsive. She is only responding to very deep painful stimuli. CT of the brain was negative. Patient is now on mechanical ventilation with assist control rate of 18 tidal volume is 400 FiO2 is down to 50% and PEEP is at 5. ABG post intubation showed a pO2 of 236 pCO2 of 38 pH of 7.37. Patient is on norepinephrine at 0.03 mcg/kg/m, propofol at 20 mcg/kg/m, IV fluids running at 150 mL per hour, she is on GI and DVT prophylaxis, she is also on Zosyn empirically, and I went ahead and placed a right radial arterial line for hemodynamic monitoring. Neurology consultation is pending. Lactic acid on admission was 8.1, follow-up lactic acid this morning is 1.6. Troponin went up from 0.012 up to 0.085. CBC is relatively normal. PT PTT and INR are normal. Chest x-ray this morning showed stable pleural parenchymal changes, difficult to tell whether the patient has underlying pneumonia or congestive heart failure. EKG this morning showed sinus tachycardia right bundle branch block, and possible old inferior wall FL. Cardiology consultation is pending. Patient was reevaluated today on 03/21/20, patient remains in the ICU, intubated and mechanically ventilated. She is now on assist control rate of 18, tidal volume is 400 FiO2 is 50% PEEP is 5. ABG showed a pO2 of 103 pCO2 of 38 pH of 7.34 hence I cut down her FiO2 to 45%. Her peak airway pressure is 31, and her plateau pressure is 22. Chest x-ray is showing some component of interstitial edema, left lower lobe atelectasis, possible pneumonia involving the left lower lobe. Considering the chest x-ray findings, I recommended Lasix 40 mg IV push 1, and The patient empirically on antibiotics. Echocardiogram is pending today. Neurologically the patient is sedated, on propofol, however as we discontinued the propofol patient became extremely agitated and restless, bucking the vent, and her blood pressure was noted to go extremely high, but she was not following any instructions and she was not comprehending much. Has had to place her back on propofol. Could not be ventilated properly off propofol. Labs from today were reviewed her electrolytes are normal BUN is 36 creatinine is 1.55, improving to creatinine on presentation which was 1.81. WBC count is 10.8 hemoglobin is 11.5 04/04/20, the patient is back on mechanical ventilator. Note that after being on trach collar for around 24 hours, the patient became progressively more short of breath and labored in terms of her breathing. The chest x-ray was not showing any acute abnormalities. In fact left lower lobe infiltrated. I think the work of breathing is quite high while breathing through a smaller caliber tracheosto my tube and that could be the reason why the patient became more labored in terms of her breathing. No respiratory secretions. She is still on Lasix on a daily basis. She maintains a negative fluid balance pH is tolerating enteral feeding for nutritional support. She remains anoxic and there is no improvement in neurologic functions over the past 24 hours. Patient was reevaluated today on 04/05/20, intermittently on mechanical ventilation, and at times on trach collar. However she was noted to be extremely tachypneic on trach collar today, and I had to place her back on ventilatory support. Patient is back on her previous ventilator settings, which is assist control rate of 24, tidal volume of 350, FiO2 is 35%, and PEEP of 5. ABG today on trach collar showed a pO2 of 65 pCO2 of 41 pH of 7.51. Chest x-ray showed bibasilar subsegmental atelectasis, possible infiltrates. But I believe the findings are mostly atelectasis findings more so than infiltrates. CBC is relatively normal left lites are normal BUN is 42 creatinine is 1.16. Patient is now off antibiotics, she remains on GI and DVT prophylaxis, and she is on Keppra as well as bronchodilators. Remains on Lasix at 40 mg IV push daily. And she is on Coreg 12.5 mg twice a day. Neurologic status is basically about the same, patient basically opens eyes only to deep painful stimuli, does not have any appropriate response to verbal stimuli. Objective - Vital Signs Vital signs: Vital Signs Temp 99.9 F H 04/05/20 08:00 Pulse 73 04/05/20 11:04 Resp 25 H 04/05/20 09:00 BP 134/62 04/05/20 09:00 Pulse Ox 93 L 04/05/20 09:00 Intake & Output 04/04/20 04/05/20 04/05/20 18:59 06:59 18:59 Intake Total 840 820 150 Output Total 1185 760 950 Balance -345 60 -800 Weight 97.1 kg 97.1 kg Intake: IV 20 0.9% Na 20 Intake, IV Titration 220 140 100 Amount Lactated Ringers 1,000 ml 40 140 100 @ 20 mls/hr IV .Q24H [facility] Rx#:[id number] Sodium Chloride 0.9% 1, 180 000 ml @ 20 mls/hr IV . Q24H [facility] Rx#:[id number] Tube Feeding 600 600 50 Other 80 Output: Urine 1185 760 950 Other: Voiding Method Indwelling Catheter Indwelling Catheter Indwelling Catheter ABP, PAP, CO, CI - Last Documented Arterial Blood Pressure 136/50 - Exam Gen.: Revealed a 64-year-old female on mechanical ventilation, in no distress, off propofol. Head exam: Atraumatic, normocephalic. Eye exam: PERRLA, EOMI, no icterus, ENT exam: Dry mucous membranes, tracheostomy tube is intact. Neck exam: Supple, no neck masses, tracheostomy is intact. Respiratory exam: Diminished breath sounds at the bases crackles and rhonchi bilaterally. Cardiovascular Exam: Normal S1 and S2, no S3 gallop. GI/Abdominal exam: Flat, soft, nontender, no megaly, no rebound, no guarding. PEG tube is intact. And the patient has a colostomy in place. Extremities exam: No clubbing, trace of edema, no cyanosis. Good pulses bilaterally. Neurological exam: Patient is unresponsive to any stimuli except , opens eyes only to deep painful stimuli but no other responses. Skin exam: No rashes - Labs CBC & Chem 7: 04/05/20 03:18 04/05/20 03:18 Labs: Abnormal Lab Results - Last 24 Hours (Table) 04/04/20 04/04/20 04/04/20 Range/Units 16:23 19:31 23:47 WBC (3.8-10.6) k/uL RBC (3.80-5.40) m/uL Hgb (11.4-16.0) gm/dL MCHC (31.0-37.0) g/dL Neutrophils # (1.3-7.7) k/uL ABG pH (7.35-7.45) ABG pO2 (83-108) mmHg ABG HCO3 (21-25) mmol/L ABG Total CO2 (19-24) mmol/L Carbon Dioxide (22-30) mmol/L BUN (7-17) mg/dL Creatinine (0.52-1.04) mg/dL Glucose (74-99) mg/dL POC Glucose (mg/dL) 213 H 121 H 244 H (75-99) mg/dL AST (14-36) U/L Alkaline Phosphatase (38-126) U/L Albumin (3.5-5.0) g/dL 04/05/20 04/05/20 04/05/20 Range/Units 03:18 03:18 04:27 WBC 11.0 H (3.8-10.6) k/uL RBC 3.75 L (3.80-5.40) m/uL Hgb 10.3 L (11.4-16.0) gm/dL MCHC 30.2 L (31.0-37.0) g/dL Neutrophils # 8.9 H (1.3-7.7) k/uL ABG pH (7.35-7.45) ABG pO2 (83-108) mmHg ABG HCO3 (21-25) mmol/L ABG Total CO2 (19-24) mmol/L Carbon Dioxide 31 H (22-30) mmol/L BUN 42 H (7-17) mg/dL Creatinine 1.16 H (0.52-1.04) mg/dL Glucose 194 H (74-99) mg/dL POC Glucose (mg/dL) 233 H (75-99) mg/dL AST 42 H (14-36) U/L Alkaline Phosphatase 155 H (38-126) U/L Albumin 3.1 L (3.5-5.0) g/dL 04/05/20 04/05/20 04/05/20 Range/Units 08:15 09:44 11:32 WBC (3.8-10.6) k/uL RBC (3.80-5.40) m/uL Hgb (11.4-16.0) gm/dL MCHC (31.0-37.0) g/dL Neutrophils # (1.3-7.7) k/uL ABG pH 7.51 H (7.35-7.45) ABG pO2 65 L (83-108) mmHg ABG HCO3 33 H (21-25) mmol/L ABG Total CO2 34 H (19-24) mmol/L Carbon Dioxide (22-30) mmol/L BUN (7-17) mg/dL Creatinine (0.52-1.04) mg/dL Glucose (74-99) mg/dL POC Glucose (mg/dL) 247 H 127 H (75-99) mg/dL AST (14-36) U/L Alkaline Phosphatase (38-126) U/L Albumin (3.5-5.0) g/dL Assessment and Plan Assessment: Impression: 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 Chronic respiratory failure, hypoxic in nature, patient had chronic tracheostomy in place. History of PEG tube placement postoperative day #10. Possible aspiration pneumonia, resolved, off antibiotics. Ischemic cardiomyopathy based on echocardiogram. History of underlying COPD. History of coronary artery disease and previous stent of LAD. Previous history of cardiac arrest in 2008. History of diabetic peripheral neuropathy. Benign essential hypertension. History of vocal cord paralysis requiring tracheostomy in the past. Failure to wean from mechanical ventilation. Patient has been tolerating intermittently short periods of trach collar, hence she is noted to be extremely short of breath and tachypneic while on trach collar. And today I recommended what we go back on ventilatory support. History of secondary pulmonary hypertension. Recommendation: Continue present supportive care measures. Continue GI and DVT prophylaxis. Continue nutritional support. Continue bronchodilators. Consider placement in [facility]. Considering her anoxic brain injury, prognosis is extremely poor and guarded. Will ask delinquency prevention social worker to reevaluate again for possible placement. We'll continue to follow. Critical care time is 33 minutes Time with Patient: Greater than 30
--- NOTE | 2020-04-05 16:00 | P.PN ---
Progress Note - Text Progress Note Date: 04/05/20 Chief Complaint: Decreased responsiveness History of presenting complaint: This is a 64-year-old patient of Dr. Finley. Chronic stable medical conditions include hypertension, hyperlipidemia, diabetic peripheral neuropathy. was in the hospital in October 2018 having cardiac arrest following LAD angioplasty. Also pulmonary [id number]-otar was felt a left vocal cord paralysis probably from intubation. Patient was brought in by the EMS. Family had called closure short of breath. While they were on the phone vacation became unresponsive and collapsed into the bed. Then begin using a bag valve mask ventilation. When the EMS arrived patient was unresponsive she also went into ventricular fibrillation. She received 1 mg of epinephrine 1 shock and patient then came around. Downtime was about 10 minutes. Patient is in the ICU. On the ventilator. FiO2 50% and a PEEP of 5. Patient is on IV propofol and norepinephrine. Telemetry shows sinus rhythm. Has an NG tube. Per cardiology notes her EF is 35%. In the past. admitted with-cardiac arrest with underlying rhythm of ventricular fibrillation the downtime of tenderness, cardioverted, acute hypoxic respiratory failure on the ventilator, acute CHF exacerbation, lactic acidosis likely type II, aspiration pneumonia, and acute COPD exacerbation.started on IV Zosyn, IV Solu- Medrol. Initially intubated. Put on Cleviprex drip for blood pressure. Based on EEG placed on IV Keppra per neurology. Dose of Neurontin scaled back. Because of renal failure. Had a PEG tube placed. Diagnosed with anoxic brain injury. Patient had gone down to a trach collar. Did put back underwent. 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 [id number]-qt the ventilator. FiO2 35 and a PEEP of 5. Potassium the trachea. Telemetry shows sinus rhythm. Occasional opening of the eyes, nonpurposeful. 2 feeding at goal. Review of systems:-Patient doesn't follow commands Active Medications Acetaminophen (Acetaminophen Tab 325 Mg Tab) 650 mg PO Q4HR PRN PRN Reason: Fever and/or Mild Pain Last Admin: 03/31/20 09:16 Dose: 650 mg Documented by: Albuterol/Ipratropium (Ipratropium-Albuterol 3 Ml Neb) 3 ml INHALATION RT-Q2H PRN PRN Reason: Shortness Of Breath Or Wheezing Albuterol/Ipratropium (Ipratropium-Albuterol 3 Ml Neb) 3 ml INHALATION RT-QID [facility] Last Admin: 04/05/20 15:19 Dose: 3 ml Documented by: Amlodipine Besylate (Amlodipine 10 Mg Tab) 10 mg PO DAILY [facility] Last Admin: 04/05/20 08:22 Dose: 10 mg Documented by: Aspirin (Aspirin 81 Mg) 81 mg PO DAILY [facility] Last Admin: 04/05/20 08:22 Dose: 81 mg Documented by: Carvedilol (Carvedilol 12.5 Mg Tab) 12.5 mg PO BID-W/MEALS [facility] Last Admin: 04/05/20 06:33 Dose: 12.5 mg Documented by: Docusate Sodium (Docusate Oral Soln 100 Mg/10 Ml Cup) 100 mg PO DAILY [facility] Last Admin: 04/05/20 08:23 Dose: 100 mg Documented by: Ezetimibe (Ezetimibe 10 Mg Tab) 10 mg PO DAILY [facility] Last Admin: 04/05/20 08:23 Dose: 10 mg Documented by: Furosemide (Furosemide 10 Mg/Ml 4 Ml Vial) 40 mg IV DAILY [facility] Last Admin: 04/05/20 08:22 Dose: 40 mg Documented by: Gabapentin (Gabapentin 300 Mg Cap) 300 mg PO TID [facility] Last Admin: 04/05/20 08:22 Dose: 300 mg Documented by: Heparin Sodium (Porcine) (Heparin Sodium,Porcine 5,000 Unit/Ml 1 Ml Vial) 5,000 unit SQ Q8HR [facility] Last Admin: 04/05/20 08:22 Dose: 5,000 unit Documented by: Hydromorphone HCl (Hydromorphone 0.5 Mg/0.5 Ml Syringe) 0.5 mg IVP Q6HR PRN PRN Reason: Pain Last Admin: 04/03/20 18:16 Dose: 0.5 mg Documented by: Hydromorphone HCl (Hydromorphone 1 Mg/Ml 1 Ml Syringe) 1 mg IVP Q6HR PRN PRN Reason: Pain Last Admin: 04/01/20 05:17 Dose: 1 mg Documented by: Sodium Chloride (Saline 0.9%) 1,000 mls @ 20 mls/hr IV .Q24H [facility] Last Admin: 04/04/20 16:41 Dose: Not Given Documented by: Lactated Ringer's (Lactated Ringers) 1,000 mls @ 20 mls/hr IV .Q24H [facility] Last Admin: 04/05/20 06:32 Dose: 20 mls/hr Documented by: Insulin Aspart (Insulin Aspart (Novolog) 100 Unit/Ml Vial) 0 unit SQ Q4H [facility]; Protocol Last Admin: 04/05/20 13:29 Dose: Not Given Documented by: Insulin Detemir (Insulin Detemir (Levemir) 100 Unit/Ml Syr) 26 unit SQ HS [facility] Last Admin: 04/04/20 20:37 Dose: 26 unit Documented by: Levetiracetam (Levetiracetam 500 Mg Tab) 500 mg PO Q12HR [facility] Last Admin: 04/05/20 08:22 Dose: 500 mg Documented by: Lisinopril (Lisinopril 10 Mg Tab) 10 mg PO DAILY [facility] Last Admin: 04/05/20 08:22 Dose: 10 mg Documented by: Lorazepam (Lorazepam 2 Mg/Ml Inj) 1 mg IV Q4HR PRN PRN Reason: Seizures Last Admin: 03/26/20 18:52 Dose: 1 mg Documented by: Miscellaneous Information (Magnesium Replacement Protocol 1 Each Misc) 1 each MISCELLANE DAILY PRN; Protocol PRN Reason: Per Protocol Miscellaneous Information (Potassium Replacement Protocol 1 Each Misc) 1 each MISCELLANE DAILY PRN; Protocol PRN Reason: Per Protocol Naloxone HCl (Naloxone 0.4 Mg/Ml 1 Ml Vial) 0.2 mg IV Q2M PRN PRN Reason: Opioid Reversal Pantoprazole Sodium (Pantoprazole Sodium 40 Mg Granule Pkt) 40 mg PEG/G-TUBE DAILY [facility] Last Admin: 04/05/20 08:23 Dose: 40 mg Documented by: Prasugrel (Prasugrel 10 Mg Tab) 10 mg PO DAILY [facility] Last Admin: 04/05/20 08:22 Dose: 10 mg Documented by: Senna (Sennosides 8.6 Mg Tab) 8.6 mg PO BID PRN PRN Reason: Constipation Last Admin: 03/31/20 09:15 Dose: 8.6 mg Documented by: Physical examination: VITAL SIGNS: 99.9, 72, 34, 135% to 2, 90% on the ventilator GENERAL: laying in bed, lethargic EYES: Pupils equal. Conjunctiva normal. NECK: JVD unable to assess, masses not palpable.stoma with the tracheostomy- March the ventilator HEART: First and second heart sounds are normal; no edema. LUNGS: Respiratory rate increased, decreased breath sounds ABDOMEN: Soft, nontender, liver spleen not palpable, no masses palpable. PSYCH: Unable to assess NEUROLOGICAL: Nonpurposeful movement to painful stimuli INVESTIGATIONS, reviewed in the clinical context: White count 11 hemoglobin 10.3 potassium 4 bun 42 creatinine 1.16 Chest x-ray possibly some infiltrate 2-D echocardiogram-EF 60-65%, mild to moderate pulmonary hypertension Repeat EEG-March 23-showing generalized cerebral dysfunction EEG suggestive of generalized cerebral dysfunction Admission testing White count 10.1 hemoglobin 13.4 platelets 293 potassium 5.8 bicarb 17 bun 42 creatinine 1.81 blood glucose 458 lactic acid 8.1 Troponin I less than 0.012, 0.056,0.085 EKG tracing personally reviewed by me-sinus rhythm low-voltage right bundle branch block pattern Computed tomography scan of the brain-negative Chest x-ray film personally reviewed by me-portable cardiomegaly venous prominence Assessment: -Cardiac arrest with underlying rhythm of ventricle fibrillation, with downtime of 10 minutes cardioverted, 1 dose of epinephrine -Acute hypoxic respiratory failure, requiring ventilator intermittently with trach collar -Acute on chronic congestive heart failure exacerbation from systolic dysfunction EF 25%-stabilized -Lactic acidosis -Possible aspiration pneumonia -Acute COPD exacerbation in an ex-smoker, exposed to secondhand smoking- -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 / encephalopathy.-Slow to respond. -Secondary pulmonary hypertension -PEG tube placed today March [address] Amador-feeding at goal Plan: Continue current medication treatment plan. 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
--- NOTE | 2020-04-05 16:07 | P.PN ---
Subjective Progress Note Date: 04/05/20 She was seen at bedside and the she on a ventilator via trach. I personally spoke with the patient daughter on Sunday at around 5ish in afternoon and discussed with up with her about the patient condition. She spoke with her brother and the decision was to make the patient the DO NOT RESUSCITATE. Per th e patient nurse the patient was on a trach and not requiring the ventilator initially but but that she was having respiratory distress so as a result patient daughter was contacted and the patient daughter the stated that it was okay for the patient to be on a ventilator. According to patientno spontaneous movement. Continues to have the same neuro- exam as last week, not following commands and not verbalizing but has intact brainstem reflexes. Objective - Vital Signs Vital signs: Vital Signs Temp 100.8 F H 04/05/20 12:00 Pulse 72 04/05/20 15:37 Resp 24 04/05/20 15:00 BP 147/73 04/05/20 15:00 Pulse Ox 94 L 04/05/20 15:00 Intake & Output 04/04/20 04/05/20 04/05/20 18:59 06:59 18:59 Intake Total 840 820 490 Output Total 7126 557 5262 Balance -345 60 -685 Weight 97.1 kg 97.1 kg Intake: IV 20 0.9% Na 20 Intake, IV Titration 220 140 140 Amount Lactated Ringers 1,000 ml 40 140 140 @ 20 mls/hr IV .Q24H [facility] Rx#:[id number] Sodium Chloride 0.9% 1, 180 000 ml @ 20 mls/hr IV . Q24H [facility] Rx#:[id number] Tube Feeding 600 600 350 Other 80 Output: Urine 4391 331 6782 Other: Voiding Method Indwelling Catheter Indwelling Catheter Indwelling Catheter ABP, PAP, CO, CI - Last Documented Arterial Blood Pressure 136/50 - Exam General: Patient does not look in acute distress. Respiratory: She is trach on Vent today. Clear to auscultation throughout Neurological exam: Limited because of her condition. Higher mental function. Patient is had her eyes closed but with painful stimuli would open them. She is verbally unresponsive and does not follow commands. The pupils are round and 3-mm bilaterally. Positive corneal reflex bilaterally. There is no facial weakness appreciated bilaterally. Has intact gag reflex Motor: Strength could not be assessed because of patient condition. No spontaneous movement seen. Sensation:With painful stimuli, patient grimaces her face. Cannot assess the light touch because of her condition. Reflexes are 1 positive throughout. - Labs CBC & Chem 7: 04/05/20 03:18 04/05/20 03:18 Labs: Abnormal Lab Results - Last 24 Hours (Table) 04/04/20 04/04/20 04/04/20 Range/Units 16:23 19:31 23:47 WBC (3.8-10.6) k/uL RBC (3.80-5.40) m/uL Hgb (11.4-16.0) gm/dL MCHC (31.0-37.0) g/dL Neutrophils # (1.3-7.7) k/uL ABG pH (7.35-7.45) ABG pO2 (83-108) mmHg ABG HCO3 (21-25) mmol/L ABG Total CO2 (19-24) mmol/L Carbon Dioxide (22-30) mmol/L BUN (7-17) mg/dL Creatinine (0.52-1.04) mg/dL Glucose (74-99) mg/dL POC Glucose (mg/dL) 213 H 121 H 244 H (75-99) mg/dL AST (14-36) U/L Alkaline Phosphatase (38-126) U/L Albumin (3.5-5.0) g/dL 04/05/20 04/05/20 04/05/20 Range/Units 03:18 03:18 04:27 WBC 11.0 H (3.8-10.6) k/uL RBC 3.75 L (3.80-5.40) m/uL Hgb 10.3 L (11.4-16.0) gm/dL MCHC 30.2 L (31.0-37.0) g/dL Neutrophils # 8.9 H (1.3-7.7) k/uL ABG pH (7.35-7.45) ABG pO2 (83-108) mmHg ABG HCO3 (21-25) mmol/L ABG Total CO2 (19-24) mmol/L Carbon Dioxide 31 H (22-30) mmol/L BUN 42 H (7-17) mg/dL Creatinine 1.16 H (0.52-1.04) mg/dL Glucose 194 H (74-99) mg/dL POC Glucose (mg/dL) 233 H (75-99) mg/dL AST 42 H (14-36) U/L Alkaline Phosphatase 155 H (38-126) U/L Albumin 3.1 L (3.5-5.0) g/dL 04/05/20 04/05/20 04/05/20 Range/Units 08:15 09:44 11:32 WBC (3.8-10.6) k/uL RBC (3.80-5.40) m/uL Hgb (11.4-16.0) gm/dL MCHC (31.0-37.0) g/dL Neutrophils # (1.3-7.7) k/uL ABG pH 7.51 H (7.35-7.45) ABG pO2 65 L (83-108) mmHg ABG HCO3 33 H (21-25) mmol/L ABG Total CO2 34 H (19-24) mmol/L Carbon Dioxide (22-30) mmol/L BUN (7-17) mg/dL Creatinine (0.52-1.04) mg/dL Glucose (74-99) mg/dL POC Glucose (mg/dL) 247 H 127 H (75-99) mg/dL AST (14-36) U/L Alkaline Phosphatase (38-126) U/L Albumin (3.5-5.0) g/dL Assessment and Plan Assessment: 64-year-old female, who has tracheostomy since March 2019, had a witnessed respiratory arrest followed by cardiac arrest at home, with downtime of about 10 minutes, although patient's daughter stating <5 minutes. Patient is 6 days post cardiac arrest, now showing signs of clinical improvement. * Anoxic brain injury: cardiac arrest for 10 minute---no improvement * Encephalopathy due to above * Acute respiratory failure, * Possible aspiration pneumonia * History of cardiac arrest in October 2018 during cardiac procedure. * History of vocal cord paralysis and previous tracheostomy. * COPD * Diabetes * Hypertension * Mild renal insufficiency. * X tobacco use Plan: * Recommend to avoid any the sedation or opioid as much as possible. * Repeated computed tomography scan of the head 03/24/2020, revealed no acute process, no cerebral edema or CVA. * Repeat EEG 03/23/2020 revealed diffuse slowing in moderate to high amplitude delta range, consistent with severe encephalopathy. No epileptiform activity was seen on this study. * Repeat EEG on 03/27/2020 showed no epileptiform activity. The background improved at. * Continue Keppra 500 mg twice a day (adjusted to her renal functions). * Continue Neurontin 300 mg 3 times a day based upon her renal functions. * As a result of the cardiac arrest the patient suffered which seem a significant brain injury. Patient does have intact brainstem reflexes but I think the patient will be dependent on others for assistance if there are any improvement. Catalino Kearns M.D. Neuro-Hospitalist Time with Patient: Less than 30
[2020-04-05] MEDS: SODIUM CHLORIDE 0.9% 1,000 ML IV SCH (16:25)
[2020-04-05 16:30] LABS: Glucose,Whole Blood 160 mg/dL (75-99)
[2020-04-05 20:45] LABS: Glucose,Whole Blood 123 mg/dL (75-99)
[2020-04-05] MEDS: INSULIN DETEMIR (LEVEMIR) 100 UNIT/ML SYR SQ SCH (20:48)
[2020-04-05 23:23] LABS: Glucose,Whole Blood 185 mg/dL (75-99)
[2020-04-06 04:20] LABS: Glucose,Whole Blood 222 mg/dL (75-99)
[2020-04-06 04:28] LABS: Basophils # (A) 0.1 k/uL (0-0.2); Basophils % (A) 1 %; Eosinophils # (A) 0.1 k/uL (0-0.7); Eosinophils % (A) 1 %; HCT 29.4 % (34.0-46.0); HGB 9.2 gm/dL (11.4-16.0); Hypochromasia Slight; Lymphocytes # (A) 1.2 k/uL (1.0-4.8); Lymphocytes % (A) 12 %; MCH 28.2 pg (25.0-35.0); MCHC 31.1 g/dL (31.0-37.0); MCV 90.5 fL (80.0-100.0); Mean Platelet Volume 8.8; Monocytes # (A) 0.4 k/uL (0-1.0); Monocytes % (A) 4 %; Neutrophils # (A) 8.1 k/uL (1.3-7.7); Neutrophils % (A) 81 %; Platelet Count 238 k/uL (150-450); RBC 3.26 m/uL (3.80-5.40); RDW 14.9 % (11.5-15.5); WBC 10.1 k/uL (3.8-10.6)
[2020-04-06 04:36] LABS: Calcium 8.8 mg/dL (8.4-10.2); Potassium 4.1 mmol/L (3.5-5.1)
[2020-04-06] MEDS: INSULIN ASPART (NovoLOG) 100 UNIT/ML VIAL SQ SCH ×5 (05:06→21:00)
[2020-04-06] MEDS: carvediloL 12.5 MG TAB PO SCH ×2 (06:47→16:02)
[2020-04-06] MEDS: LACTATED RINGERS 1,000 ML IV SCH (06:48)
[2020-04-06] MEDS: IPRATROPIUM-ALBUTEROL 3 ML NEB INHALATION SCH ×4 (07:12→19:16)
[2020-04-06] MEDS: PRASUGREL 10 MG TAB PO SCH (08:06)
[2020-04-06] MEDS: ASPIRIN 81 MG PO SCH (08:06)
[2020-04-06] MEDS: GABAPENTIN 300 MG CAP PO SCH ×3 (08:06→21:00)
[2020-04-06] MEDS: PANTOPRAZOLE SODIUM 40 MG GRANULE PKT PEG/G-TUBE SCH (08:06)
[2020-04-06] MEDS: levETIRAcetam 500 MG TAB PO SCH ×2 (08:06→21:00)
[2020-04-06] MEDS: EZETIMIBE 10 MG TAB PO SCH (08:06)
[2020-04-06] MEDS: lisinopriL 10 MG TAB PO SCH (08:06)
[2020-04-06] MEDS: amLODIPine 10 MG TAB PO SCH (08:06)
[2020-04-06] MEDS: HEPARIN SODIUM,PORCINE 5,000 UNIT/ML 1 ML VIAL SQ SCH ×2 (08:07→16:02)
[2020-04-06] MEDS: DOCUSATE ORAL SOLN 100 MG/10 ML CUP PO SCH (08:07)
[2020-04-06] MEDS: FUROSEMIDE 10 MG/ML 4 ML VIAL IV SCH (08:07)
[2020-04-06 08:11] LABS: Glucose,Whole Blood 246 mg/dL (75-99)
--- NOTE | 2020-04-06 08:13 | XR ---
EXAMINATION TYPE: XR chest 1V DATE OF EXAM: 04/06/2020 COMPARISON: Chest x-ray 04/05/2020 HISTORY: Tracheostomy tube to ventilator, abnormal chest x-ray TECHNIQUE: Single frontal view of the chest is obtained. FINDINGS: Patient is rotated. Tracheostomy tube is overlying the tracheal air column showing a somewh at horizontal course. Right-sided PICC line is stable. There are overlying artifacts. There is persis tent subsegmental basilar atelectatic change suspected, no pleural effusion, or pneumothorax seen. Th e aorta is dense. The cardiac silhouette size is stable. The osseous structures are intact. IMPRESSION: Findings similar to prior exam. Correlate for appropriate tracheostomy tube placement.
[2020-04-06 12:21] LABS: Glucose,Whole Blood 232 mg/dL (75-99)
--- NOTE | 2020-04-06 13:08 | P.PN ---
Subjective Progress Note Date: 04/06/20 CHIEF COMPLAINT: Cardiopulmonary arrest HISTORY OF PRESENT ILLNESS: Patient is a remains in the ICU. She is status post PEG tube placement. She is tolerating tube feeds. Tube feedings are currently at 57 ml/hour. Patient had a temp of 100.8 WBC is 10.1. Currently on mechanical ventilation PHYSICAL EXAM: VITAL SIGNS: Reviewed. GENERAL: Well-developed in no acute distress. HEENT: No sclera icterus. Extraocular movements grossly intact. Moist buccal mucosa. Head is atraumatic, normocephalic. ABDOMEN: Soft. Nondistended. Nontender. PEG tube site clean dry and intact NEUROLOGIC: Not responsive ASSESSMENT: 1. Status post out of hospital cardiopulmonary arrest 2. Status post mechanical ventilation with insertion of a pediatric tracheostomy tube and a prior tracheostoma site for hypoxic respiratory failure 3. Severe protein calorie malnutrition Status post PEG tube placement 3. Anoxic encephalopathy 4. History of vocal cord paralysis and previous tracheostomy 5. Possible aspiration pneumonia 6. Acute systolic CHF exacerbation 7. History of coronary artery disease with cardiac stents PLAN: -Continue tube feedings for nutritional support -Continue plan as per critical care service Physician Motorcycle Police Officer note has been reviewed by physician. Signing provider agrees with the documented findings, assessment, and plan of care. Objective - Vital Signs Vital signs: Vital Signs Temp 98.8 F 04/06/20 12:00 Pulse 71 04/06/20 12:00 Resp 28 H 04/06/20 12:00 BP 119/61 04/06/20 12:00 Pulse Ox 94 L 04/06/20 12:00 Intake & Output 04/05/20 04/06/20 04/06/20 18:59 06:59 18:59 Intake Total 840 860 480 Output Total 1415 670 535 Balance -575 190 -55 Weight 97.1 kg 95.6 kg Intake: IV 220 120 Lactated Ringers 1,000 ml 80 @ 20 mls/hr IV .Q24H [facility] Rx#:[id number] Sodium Chloride 0.9% 1, 140 120 000 ml @ 20 mls/hr IV . Q24H [facility] Rx#:[id number] Intake, IV Titration 240 Amount Lactated Ringers 1,000 ml 240 @ 20 mls/hr IV .Q24H [facility] Rx#:[id number] Tube Feeding 600 550 300 Other 90 60 Output: Urine 1415 670 535 Other: Voiding Method Indwelling Catheter Indwelling Catheter Indwelling Catheter ABP, PAP, CO, CI - Last Documented Arterial Blood Pressure 136/50 - Labs CBC & Chem 7: 04/06/20 04:20 04/06/20 04:20 Labs: Abnormal Lab Results - Last 24 Hours (Table) 04/05/20 04/05/20 04/05/20 Range/Units 16:29 20:44 23:21 RBC (3.80-5.40) m/uL Hgb (11.4-16.0) gm/dL Hct (34.0-46.0) % Neutrophils # (1.3-7.7) k/uL Carbon Dioxide (22-30) mmol/L BUN (7-17) mg/dL Creatinine (0.52-1.04) mg/dL Glucose (74-99) mg/dL POC Glucose (mg/dL) 160 H 123 H 185 H (75-99) mg/dL 04/06/20 04/06/20 04/06/20 Range/Units 04:19 04:20 04:20 RBC 3.26 L (3.80-5.40) m/uL Hgb 9.2 L (11.4-16.0) gm/dL Hct 29.4 L (34.0-46.0) % Neutrophils # 8.1 H (1.3-7.7) k/uL Carbon Dioxide 33 H (22-30) mmol/L BUN 53 H (7-17) mg/dL Creatinine 1.30 H (0.52-1.04) mg/dL Glucose 219 H (74-99) mg/dL POC Glucose (mg/dL) 222 H (75-99) mg/dL 04/06/20 04/06/20 Range/Units 08:10 12:20 RBC (3.80-5.40) m/uL Hgb (11.4-16.0) gm/dL Hct (34.0-46.0) % Neutrophils # (1.3-7.7) k/uL Carbon Dioxide (22-30) mmol/L BUN (7-17) mg/dL Creatinine (0.52-1.04) mg/dL Glucose (74-99) mg/dL POC Glucose (mg/dL) 246 H 232 H (75-99) mg/dL
--- NOTE | 2020-04-06 14:58 | P.PN ---
Subjective Progress Note Date: 04/06/20 Principal diagnosis: Acute hypoxic or for failure and cardiac arrest This is a 64-year-old female with history of multiple medical problems including coronary artery disease, previous cardiac arrest, going back to Oct 02 2018. Patient was having elective cardiac catheterization and she was found to have a mid LAD lesion. During the procedure, patient went into cardiac arrest, and angioplasty was performed. However patient developed profound hypotension and went into pulseless electrical activity. Patient continues to have on and off hypotension and cardiac arrest for approximately 60 minutes in the [facility]. During this time the patient had LAD stented she was resuscitated, emPella device was used, and she was eventually transferred to the intensive care unit, seen by Dr. Atkinson on consultation. Patient had a prolonged course of intubation and mechanical ventilation, she was eventually discharged on 10/17/19. At that time patient had systolic dysfunction with ejection fraction of 35%. She also had episodes of COPD exacerbation, and she was also noted to have a left vocal cord paralysis, likely related to her intubation. Patient was eventually discharged to [facility], and she continues to have intermittent episodes of stridor. Seen last as inpatient by Dr. Atkinson on 03/23/2019, at the time she was having shortness of breath with inspiratory stridor. And again this was felt to be related to her vocal cord injury/paralysis. Eventually, the patient ended up with a tracheostomy in place, this was supposedly done on outpatient basis. Patient has been following with Dr. Nelson's/ENT for her vocal cord paralysis. Her tracheostomy was done on May 14 2019 at the [facility].Last night the patient was brought into the ER by EMS, patient apparently had a cardiopulmonary arrest. EMS arrived to the scene, patient was unresponsive, apparently she collapsed forward onto bed, patient was Ambu bag, and she was pulseless. Reportedly she went into ventricular fibrillation, she was given 1 mg of epinephrine, and she was shocked once. CPR was roughly lasted 5 minutes, and there was return of spontaneous circulation after 1 epinephrine and 1 shock. Patient was brought into the ER, unresponsive, and an endotracheal tube was placed in the tracheostomy site by EMS, and this was later changed by the ER physician to a tracheostomy connected to mechanical ventilation, patient was admitted to the ICU, and I was asked to see her on consultation. Patient is unresponsive. She is only responding to very deep painful stimuli. CT of the brain was negative. Patient is now on mechanical ventilation with assist control rate of 18 tidal volume is 400 FiO2 is down to 50% and PEEP is at 5. ABG post intubation showed a pO2 of 236 pCO2 of 38 pH of 7.37. Patient is on norepinephrine at 0.03 mcg/kg/m, propofol at 20 mcg/kg/m, IV fluids running at 150 mL per hour, she is on GI and DVT prophylaxis, she is also on Zosyn empirically, and I went ahead and placed a right radial arterial line for hemodynamic monitoring. Neurology consultation is pending. Lactic acid on admission was 8.1, follow-up lactic acid this morning is 1.6. Troponin went up from 0.012 up to 0.085. CBC is relatively normal. PT PTT and INR are normal. Chest x-ray this morning showed stable pleural parenchymal changes, difficult to tell whether the patient has underlying pneumonia or congestive heart failure. EKG this morning showed sinus tachycardia right bundle branch block, and possible old inferior wall KS. Cardiology consultation is pending. Patient was reevaluated today on 03/21/20, patient remains in the ICU, intubated and mechanically ventilated. She is now on assist control rate of 18, tidal volume is 400 FiO2 is 50% PEEP is 5. ABG showed a pO2 of 103 pCO2 of 38 pH of 7.34 hence I cut down her FiO2 to 45%. Her peak airway pressure is 31, and her plateau pressure is 22. Chest x-ray is showing some component of interstitial edema, left lower lobe atelectasis, possible pneumonia involving the left lower lobe. Considering the chest x-ray findings, I recommended Lasix 40 mg IV push 1, and The patient empirically on antibiotics. Echocardiogram is pending today. Neurologically the patient is sedated, on propofol, however as we discontinued the propofol patient became extremely agitated and restless, bucking the vent, and her blood pressure was noted to go extremely high, but she was not following any instructions and she was not comprehending much. Has had to place her back on propofol. Could not be ventilated properly off propofol. Labs from today were reviewed her electrolytes are normal BUN is 36 creatinine is 1.55, improving to creatinine on presentation which was 1.81. WBC count is 10.8 hemoglobin is 11.5 04/04/20, the patient is back on mechanical ventilator. Note that after being on trach collar for around 24 hours, the patient became progressively more short of breath and labored in terms of her breathing. The chest x-ray was not showing any acute abnormalities. In fact left lower lobe infiltrated. I think the work of breathing is quite high while breathing through a smaller caliber tracheosto my tube and that could be the reason why the patient became more labored in terms of her breathing. No respiratory secretions. She is still on Lasix on a daily basis. She maintains a negative fluid balance pH is tolerating enteral feeding for nutritional support. She remains anoxic and there is no improvement in neurologic functions over the past 24 hours. Patient was reevaluated today on 04/05/20, intermittently on mechanical ventilation, and at times on trach collar. However she was noted to be extremely tachypneic on trach collar today, and I had to place her back on ventilatory support. Patient is back on her previous ventilator settings, which is assist control rate of 24, tidal volume of 350, FiO2 is 35%, and PEEP of 5. ABG today on trach collar showed a pO2 of 65 pCO2 of 41 pH of 7.51. Chest x-ray showed bibasilar subsegmental atelectasis, possible infiltrates. But I believe the findings are mostly atelectasis findings more so than infiltrates. CBC is relatively normal left lites are normal BUN is 42 creatinine is 1.16. Patient is now off antibiotics, she remains on GI and DVT prophylaxis, and she is on Keppra as well as bronchodilators. Remains on Lasix at 40 mg IV push daily. And she is on Coreg 12.5 mg twice a day. Neurologic status is basically about the same, patient basically opens eyes only to deep painful stimuli, does not have any appropriate response to verbal stimuli. Patient was reevaluated today on 04/06/20, patient remains in the ICU, intubated and mechanically ventilated. Her ventilator settings are assist control rate of 24 to volume of 350 FiO2 35% and PEEP of 5 patient still not showing any neurological recovery. And unresponsive to any stimuli. Her neurological examination has not changed much since admission. Patient has only intact brainstem reflexes, but does not follow any commands and not verbalizing. Pupils remain around 3 mm bilaterally, positive corneal reflex bilaterally. Patient has intact gag reflex. And she has no spontaneous movement noted by the nurses taking care of the patient. Opens eyes only to deep painful stimuli. Chest x-ray showed minimal atelectasis at the left base. CBC is relatively normal. Electrolytes are normal. BUN is 53 creatinine is 1.30. Objective - Vital Signs Vital signs: Vital Signs Temp 98.8 F 04/06/20 12:00 Pulse 73 04/06/20 14:00 Resp 29 H 04/06/20 14:00 BP 131/61 04/06/20 14:00 Pulse Ox 93 L 04/06/20 14:00 Intake & Output 04/05/20 04/06/20 04/06/20 18:59 06:59 18:59 Intake Total 840 860 641 Output Total 1415 670 685 Balance -575 190 -44 Weight 97.1 kg 95.6 kg Intake: IV 220 160 Lactated Ringers 1,000 ml 80 @ 20 mls/hr IV .Q24H GREG Rx#:[id number] Sodium Chloride 0.9% 1, 140 160 000 ml @ 20 mls/hr IV . Q24H GREG Rx#:[id number] Intake, IV Titration 240 Amount Lactated Ringers 1,000 ml 240 @ 20 mls/hr IV .Q24H GREG Rx#:[id number] Tube Feeding 600 550 421 Other 90 60 Output: Urine 1415 670 685 Other: Voiding Method Indwelling Catheter Indwelling Catheter Indwelling Catheter ABP, PAP, CO, CI - Last Documented Arterial Blood Pressure 136/50 - Exam Gen.: Revealed a 64-year-old female on mechanical ventilation, off all sedation Head exam: Atraumatic, normocephalic. Eye exam: PERRLA, EOMI, no icterus, ENT exam: Moist mucous membranes, tracheostomy tube is intact. Neck exam: Supple, no neck masses, tracheostomy is intact. Respiratory exam: Diminished breath sounds at the bases , minimal crackles at the left base only no rhonchi and no wheezes. Cardiovascular Exam: Normal S1 and S2, no S3 gallop. GI/Abdominal exam: Flat, soft, nontender, no megaly, no rebound, no guarding. PEG tube is intact. And the patient has a colostomy in place. Extremities exam: No clubbing, trace of edema, no cyanosis. Good pulses bilaterally. Neurological exam: Patient is unresponsive to any stimuli except , opens eyes only to deep painful stimuli but no other responses. Brainstem reflexes are intact including gag reflex and corneal reflex. Skin exam: No rashes - Labs CBC & Chem 7: 04/06/20 04:20 04/06/20 04:20 Labs: Abnormal Lab Results - Last 24 Hours (Table) 04/05/20 04/05/20 04/05/20 Range/Units 16:29 20:44 23:21 RBC (3.80-5.40) m/uL Hgb (11.4-16.0) gm/dL Hct (34.0-46.0) % Neutrophils # (1.3-7.7) k/uL Carbon Dioxide (22-30) mmol/L BUN (7-17) mg/dL Creatinine (0.52-1.04) mg/dL Glucose (74-99) mg/dL POC Glucose (mg/dL) 160 H 123 H 185 H (75-99) mg/dL 04/06/20 04/06/20 04/06/20 Range/Units 04:19 04:20 04:20 RBC 3.26 L (3.80-5.40) m/uL Hgb 9.2 L (11.4-16.0) gm/dL Hct 29.4 L (34.0-46.0) % Neutrophils # 8.1 H (1.3-7.7) k/uL Carbon Dioxide 33 H (22-30) mmol/L BUN 53 H (7-17) mg/dL Creatinine 1.30 H (0.52-1.04) mg/dL Glucose 219 H (74-99) mg/dL POC Glucose (mg/dL) 222 H (75-99) mg/dL 04/06/20 04/06/20 Range/Units 08:10 12:20 RBC (3.80-5.40) m/uL Hgb (11.4-16.0) gm/dL Hct (34.0-46.0) % Neutrophils # (1.3-7.7) k/uL Carbon Dioxide (22-30) mmol/L BUN (7-17) mg/dL Creatinine (0.52-1.04) mg/dL Glucose (74-99) mg/dL POC Glucose (mg/dL) 246 H 232 H (75-99) mg/dL Assessment and Plan Assessment: Impression: 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 Chronic respiratory failure, hypoxic in nature, patient had chronic tracheostomy in place. History of PEG tube placement postoperative day #11 Possible aspiration pneumonia, resolved, off antibiotics. Chest x-ray showed dramatic improvement. Ischemic cardiomyopathy based on echocardiogram. History of underlying COPD. History of coronary artery disease and previous stent of LAD. Previous history of cardiac arrest in 2008. History of diabetic peripheral neuropathy. Benign essential hypertension. History of vocal cord paralysis requiring tracheostomy in the past. Failure to wean from mechanical ventilation. Patient has been tolerating intermittently short periods of trach collar, hence she is noted to be extremely short of breath and tachypneic while on trach collar. And today I recommended what we go back on ventilatory support. History of secondary pulmonary hypertension. Recommendation: Continue present supportive care measures. Continue GI and DVT prophylaxis. Continue nutritional support. Continue bronchodilators. Patient is being evaluated for possible transfer to [facility]. Considering her anoxic brain injury, prognosis is extremely poor and guarded. May have to approach the family about possibly considering hospice, overall prognosis especially neurological status is extremely poor. And is very unlikely that the patient will actually have a reasonable quality of life considering her comorbidities Critical care time is 32 minutes Time with Patient: Greater than 30
[2020-04-06 16:00] LABS: Glucose,Whole Blood 189 mg/dL (75-99)
[2020-04-06] MEDS: SODIUM CHLORIDE 0.9% 1,000 ML IV SCH (16:04)
--- NOTE | 2020-04-06 18:42 | P.PN ---
Subjective Progress Note Date: 04/06/20 Patient was at bedside and she continues to be on the ventilator via trach. Per the patient nurse there is no seizure-like activity noted. She only has brainstem reflexes of than that the not the following commands. She has episodes where she has her eyes open. Objective - Vital Signs Vital signs: Vital Signs Temp 99.1 F 04/06/20 16:00 Pulse 67 04/06/20 18:00 Resp 20 04/06/20 18:00 BP 137/69 04/06/20 18:00 Pulse Ox 93 L 04/06/20 18:00 Intake & Output 04/05/20 04/06/20 04/06/20 18:59 06:59 18:59 Intake Total 840 860 979 Output Total 1415 670 935 Balance -575 190 44 Weight 97.1 kg 95.6 kg Intake: IV 220 240 Lactated Ringers 1,000 ml 80 @ 20 mls/hr IV .Q24H GREG Rx#:[id number] Sodium Chloride 0.9% 1, 140 240 000 ml @ 20 mls/hr IV . Q24H GREG Rx#:[id number] Intake, IV Titration 240 Amount Lactated Ringers 1,000 ml 240 @ 20 mls/hr IV .Q24H GREG Rx#:[id number] Tube Feeding 600 550 649 Other 90 90 Output: Urine 1415 670 935 Other: Voiding Method Indwelling Catheter Indwelling Catheter Indwelling Catheter ABP, PAP, CO, CI - Last Documented Arterial Blood Pressure 136/50 - Exam General: Patient does not seem in acute distress. Respiratory: She is trach on Vent today. Clear to auscultation throughout Neurological exam: Limited because of her condition. Higher mental function. Patient is had her eyes open. She is verbally unresponsive and does not follow commands. The pupils are round and 3-mm bilaterally. Positive corneal reflex bilaterally. There is no facial weakness appreciated bilaterally. Has intact gag reflex Motor: Strength could not be assessed because of patient condition. No spontaneous movement seen. Sensation:With painful stimuli, patient grimaces her face. Cannot assess the light touch because of her condition. Reflexes are 1 positive throughout. - Labs CBC & Chem 7: 04/06/20 04:20 04/06/20 04:20 Labs: Abnormal Lab Results - Last 24 Hours (Table) 04/05/20 04/05/2004/06/20 Range/Units 20:44 23:21 04:19 RBC (3.80-5.40) m/uL Hgb (11.4-16.0) gm/dL Hct (34.0-46.0) % Neutrophils # (1.3-7.7) k/uL Carbon Dioxide (22-30) mmol/L BUN (7-17) mg/dL Creatinine (0.52-1.04) mg/dL Glucose (74-99) mg/dL POC Glucose (mg/dL) 123 H 185 H 222 H (75-99) mg/dL 04/06/20 04/06/20 04/06/20 Range/Units 04:20 04:20 08:10 RBC 3.26 L (3.80-5.40) m/uL Hgb 9.2 L (11.4-16.0) gm/dL Hct 29.4 L (34.0-46.0) % Neutrophils # 8.1 H (1.3-7.7) k/uL Carbon Dioxide 33 H (22-30) mmol/L BUN 53 H (7-17) mg/dL Creatinine 1.30 H (0.52-1.04) mg/dL Glucose 219 H (74-99) mg/dL POC Glucose (mg/dL) 246 H (75-99) mg/dL 04/06/20 04/06/20 Range/Units 12:20 15:59 RBC (3.80-5.40) m/uL Hgb (11.4-16.0) gm/dL Hct (34.0-46.0) % Neutrophils # (1.3-7.7) k/uL Carbon Dioxide (22-30) mmol/L BUN (7-17) mg/dL Creatinine (0.52-1.04) mg/dL Glucose (74-99) mg/dL POC Glucose (mg/dL) 232 H 189 H (75-99) mg/dL Assessment and Plan Assessment: 64-year-old female, who has tracheostomy since March 2019, had a witnessed respiratory arrest followed by cardiac arrest at home, with downtime of about 10 minutes, although patient's daughter stating <5 minutes. Patient is 6 days post cardiac arrest, now showing signs of clinical improvement. * Anoxic brain injury: cardiac arrest for 10 minute---no improvement * Encephalopathy due to above * Acute respiratory failure, * Possible aspiration pneumonia * History of cardiac arrest in October 2018 during cardiac procedure. * History of vocal cord paralysis and previous tracheostomy. * COPD * Diabetes * Hypertension * Mild renal insufficiency. * X tobacco use Plan: * Recommend to avoid any the sedation or opioid as much as possible. * Repeated computed tomography scan of the head 03/24/2020, revealed no acute process, no cerebral edema or CVA. * Repeat EEG 03/23/2020 revealed diffuse slowing in moderate to high amplitude delta range, consistent with severe encephalopathy. No epileptiform activity was seen on this study. * Repeat EEG on 03/27/2020 showed no epileptiform activity. The background improved at. * Continue Keppra 500 mg twice a day (adjusted to her renal functions). * Continue Neurontin 300 mg 3 times a day based upon her renal functions. * As a result of the cardiac arrest the patient suffered which seem a significant brain injury. Patient does have intact brainstem reflexes but I think the patient will be dependent on others for assistance if there are any improvement. Plan was discussed with the ICU team. Catalino Kearns M.D. Neuro-Hospitalist Time with Patient: Less than 30
[2020-04-06 20:57] LABS: Glucose,Whole Blood 243 mg/dL (75-99)
[2020-04-06] MEDS: INSULIN DETEMIR (LEVEMIR) 100 UNIT/ML SYR SQ SCH (20:59)
--- NOTE | 2020-04-06 23:03 | P.PN ---
Progress Note - Text Progress Note Date: 04/06/20 Chief Complaint: Decreased responsiveness History of presenting complaint: This is a 64-year-old patient of Dr. Finley. Chronic stable medical conditions include hypertension, hyperlipidemia, diabetic peripheral neuropathy. was in the hospital in October 2018 having cardiac arrest following LAD angioplasty. Also pulmonary kselqczf-hvpdhqwqrk-tqgn was felt a left vocal cord paralysis probably from intubation. Patient was brought in by the EMS. Family had called closure short of breath. While they were on the phone vacation became unresponsive and collapsed into the bed. Then begin using a bag valve mask ventilation. When the EMS arrived patient was unresponsive she also went into ventricular fibrillation. She received 1 mg of epinephrine 1 shock and patient then came around. Downtime was about 10 minutes. Patient is in the ICU. On the ventilator. FiO2 50% and a PEEP of 5. Patient is on IV propofol and norepinephrine. Telemetry shows sinus rhythm. Has an NG tube. Per cardiology notes her EF is 35%. In the past. admitted with-cardiac arrest with underlying rhythm of ventricular fibrillation the downtime of tenderness, cardioverted, acute hypoxic respiratory failure on the ventilator, acute CHF exacerbation, lactic acidosis likely type II, aspiration pneumonia, and acute COPD exacerbation.started on IV Zosyn, IV Solu- Medrol. Initially intubated. Put on Cleviprex drip for blood pressure. Based on EEG placed on IV Keppra per neurology. Dose of Neurontin scaled back. Because of renal failure. Had a PEG tube placed. Diagnosed with anoxic brain injury. Patient had gone down to a trach collar. Did put back underwent. 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 Aekoz-INB-et the ventilator. FiO2 35 and a PEEP of 5. 2 feeding at goal. Otherwise patient unchanged. Paperwork was done to discharge the patient-I called the [facility]. 2. Review. I was then informed that there are insurance issues and patient cannot be discharged. Review of systems:-Patient doesn't follow commands Active Medications Acetaminophen (Acetaminophen Tab 325 Mg Tab) 650 mg PO Q4HR PRN PRN Reason: Fever and/or Mild Pain Last Admin: 03/31/20 09:16 Dose: 650 mg Documented by: Albuterol/Ipratropium (Ipratropium-Albuterol 3 Ml Neb) 3 ml INHALATION RT-Q2H PRN PRN Reason: Shortness Of Breath Or Wheezing Albuterol/Ipratropium (Ipratropium-Albuterol 3 Ml Neb) 3 ml INHALATION RT-QID [facility] Last Admin: 04/06/20 19:16 Dose: 3 ml Documented by: Amlodipine Besylate (Amlodipine 10 Mg Tab) 10 mg PO DAILY [facility] Last Admin: 04/06/20 08:06 Dose: 10 mg Documented by: Aspirin (Aspirin 81 Mg) 81 mg PO DAILY [facility] Last Admin: 04/06/20 08:06 Dose: 81 mg Documented by: Carvedilol (Carvedilol 12.5 Mg Tab) 12.5 mg PO BID-W/MEALS [facility] Last Admin: 04/06/20 16:02 Dose: 12.5 mg Documented by: Docusate Sodium (Docusate Oral Soln 100 Mg/10 Ml Cup) 100 mg PO DAILY [facility] Last Admin: 04/06/20 08:07 Dose: 100 mg Documented by: Ezetimibe (Ezetimibe 10 Mg Tab) 10 mg PO DAILY [facility] Last Admin: 04/06/20 08:06 Dose: 10 mg Documented by: Furosemide (Furosemide 10 Mg/Ml 4 Ml Vial) 40 mg IV DAILY [facility] Last Admin: 04/06/20 08:07 Dose: 40 mg Documented by: Gabapentin (Gabapentin 300 Mg Cap) 300 mg PO TID [facility] Last Admin: 04/06/20 21:00 Dose: 300 mg Documented by: Heparin Sodium (Porcine) (Heparin Sodium,Porcine 5,000 Unit/Ml 1 Ml Vial) 5,000 unit SQ Q8HR [facility] Last Admin: 04/06/20 16:02 Dose: 5,000 unit Documented by: Hydromorphone HCl (Hydromorphone 0.5 Mg/0.5 Ml Syringe) 0.5 mg IVP Q6HR PRN PRN Reason: Pain Last Admin: 04/03/20 18:16 Dose: 0.5 mg Documented by: Hydromorphone HCl (Hydromorphone 1 Mg/Ml 1 Ml Syringe) 1 mg IVP Q6HR PRN PRN Reason: Pain Last Admin: 04/01/20 05:17 Dose: 1 mg Documented by: Sodium Chloride (Saline 0.9%) 1,000 mls @ 20 mls/hr IV .Q24H [facility] Last Admin: 04/06/20 16:04 Dose: 20 mls/hr Documented by: Lactated Ringer's (Lactated Ringers) 1,000 mls @ 20 mls/hr IV .Q24H [facility] Last Admin: 04/06/20 06:48 Dose: 20 mls/hr Documented by: Insulin Aspart (Insulin Aspart (Novolog) 100 Unit/Ml Vial) 0 unit SQ Q4H [facility]; Protocol Last Admin: 04/06/20 21:00 Dose: 8 unit Documented by: Insulin Detemir (Insulin Detemir (Levemir) 100 Unit/Ml Syr) 26 unit SQ HS [facility] Last Admin: 04/06/20 20:59 Dose: 26 unit Documented by: Levetiracetam (Levetiracetam 500 Mg Tab) 500 mg PO Q12HR [facility] Last Admin: 04/06/20 21:00 Dose: 500 mg Documented by: Lisinopril (Lisinopril 10 Mg Tab) 10 mg PO DAILY [facility] Last Admin: 04/06/20 08:06 Dose: 10 mg Documented by: Lorazepam (Lorazepam 2 Mg/Ml Inj) 1 mg IV Q4HR PRN PRN Reason: Seizures Last Admin: 03/26/20 18:52 Dose: 1 mg Documented by: Miscellaneous Information (Magnesium Replacement Protocol 1 Each Misc) 1 each MISCELLANE DAILY PRN; Protocol PRN Reason: Per Protocol Miscellaneous Information (Potassium Replacement Protocol 1 Each Misc) 1 each MISCELLANE DAILY PRN; Protocol PRN Reason: Per Protocol Naloxone HCl (Naloxone 0.4 Mg/Ml 1 Ml Vial) 0.2 mg IV Q2M PRN PRN Reason: Opioid Reversal Pantoprazole Sodium (Pantoprazole Sodium 40 Mg Granule Pkt) 40 mg PEG/G-TUBE DAILY [facility] Last Admin: 04/06/20 08:06 Dose: 40 mg Documented by: Prasugrel (Prasugrel 10 Mg Tab) 10 mg PO DAILY [facility] Last Admin: 04/06/20 08:06 Dose: 10 mg Documented by: Senna (Sennosides 8.6 Mg Tab) 8.6 mg PO BID PRN PRN Reason: Constipation Last Admin: 03/31/20 09:15 Dose: 8.6 mg Documented by: Physical examination: VITAL SIGNS: 99.1, 70, 25, 117/58, 94% on the ventilator GENERAL: laying in bed, eyes closed EYES: Pupils equal. Conjunctiva normal. NECK: JVD unable to assess, masses not palpable.stoma with the tracheostomy- March the ventilator HEART: First and second heart sounds are normal; no edema. LUNGS: Respiratory rate increased, decreased breath sounds ABDOMEN: Soft, nontender, liver spleen not palpable, no masses palpable. PSYCH: Unable to assess NEUROLOGICAL: Nonpurposeful movement to painful stimuli INVESTIGATIONS, reviewed in the clinical context: White count 10.1 hemoglobin 9.2 platelets 238 potassium 4.1 bun 53 creatinine 1.3 Chest x-ray possibly some infiltrate 2-D echocardiogram-EF 60-65%, mild to moderate pulmonary hypertension Repeat EEG-March 23-showing generalized cerebral dysfunction EEG suggestive of generalized cerebral dysfunction Admission testing White count 10.1 hemoglobin 13.4 platelets 293 potassium 5.8 bicarb 17 bun 42 creatinine 1.81 blood glucose 458 lactic acid 8.1 Troponin I less than 0.012, 0.056,0.085 EKG tracing personally reviewed by me-sinus rhythm low-voltage right bundle branch block pattern Computed tomography scan of the brain-negative Chest x-ray film personally reviewed by me-portable cardiomegaly venous prominence Assessment: -Cardiac arrest with underlying rhythm of ventricle fibrillation, with downtime of 10 minutes cardioverted, 1 dose of epinephrine -Acute hypoxic respiratory failure, requiring ventilator intermittently with trach collar -Acute on chronic congestive heart failure exacerbation from systolic dysfunction EF 25%-stabilized -Lactic acidosis -Possible aspiration pneumonia -Acute COPD exacerbation in an ex-smoker, exposed to secondhand smoking- -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 / encephalopathy.-Slow to respond. -Secondary pulmonary hypertension -PEG tube placed today March [address] Amador-feeding at goal Plan: Continue current medication treatment plan. Plan was initially to discharge the patient today. Late informed that insurance is not right hence patient cannot be discharged.
[2020-04-07] LABS: Glucose,Whole Blood 282 mg/dL (75-99)
[2020-04-07] MEDS: INSULIN ASPART (NovoLOG) 100 UNIT/ML VIAL SQ SCH ×7 (00:12→23:44)
[2020-04-07] MEDS: HEPARIN SODIUM,PORCINE 5,000 UNIT/ML 1 ML VIAL SQ SCH ×3 (00:12→17:34)
[2020-04-07 03:46] LABS: Glucose,Whole Blood 165 mg/dL (75-99)
[2020-04-07 04:08] LABS: Basophils % (A) 0 %; Eosinophils # (A) 0.3 k/uL (0-0.7); Eosinophils % (A) 3 %; HCT 31.6 % (34.0-46.0); HGB 9.6 gm/dL (11.4-16.0); Hypochromasia Slight; Lymphocytes # (A) 1.3 k/uL (1.0-4.8); Lymphocytes % (A) 14 %; MCH 27.9 pg (25.0-35.0); MCHC 30.6 g/dL (31.0-37.0); MCV 91.4 fL (80.0-100.0); Mean Platelet Volume 9.2; Monocytes # (A) 0.5 k/uL (0-1.0); Monocytes % (A) 5 %; Neutrophils # (A) 7.2 k/uL (1.3-7.7); Neutrophils % (A) 77 %; Platelet Count 249 k/uL (150-450); RBC 3.45 m/uL (3.80-5.40); RDW 14.7 % (11.5-15.5); WBC 9.4 k/uL (3.8-10.6)
[2020-04-07 04:19] LABS: Calcium 9.1 mg/dL (8.4-10.2)
[2020-04-07] MEDS: carvediloL 12.5 MG TAB PO SCH ×2 (07:08→17:33)
[2020-04-07] MEDS: LACTATED RINGERS 1,000 ML IV SCH (07:09)
[2020-04-07] MEDS: IPRATROPIUM-ALBUTEROL 3 ML NEB INHALATION SCH ×4 (08:39→19:47)
[2020-04-07 09:02] LABS: Glucose,Whole Blood 245 mg/dL (75-99)
[2020-04-07] MEDS: DOCUSATE ORAL SOLN 100 MG/10 ML CUP PO SCH (10:05)
[2020-04-07] MEDS: PRASUGREL 10 MG TAB PO SCH (10:05)
[2020-04-07] MEDS: PANTOPRAZOLE SODIUM 40 MG GRANULE PKT PEG/G-TUBE SCH (10:05)
[2020-04-07] MEDS: EZETIMIBE 10 MG TAB PO SCH (10:05)
[2020-04-07] MEDS: FUROSEMIDE 10 MG/ML 4 ML VIAL IV SCH (10:05)
[2020-04-07] MEDS: GABAPENTIN 300 MG CAP PO SCH ×3 (10:05→21:44)
[2020-04-07] MEDS: levETIRAcetam 500 MG TAB PO SCH ×2 (10:06→21:44)
[2020-04-07] MEDS: lisinopriL 10 MG TAB PO SCH (10:07)
[2020-04-07] MEDS: amLODIPine 10 MG TAB PO SCH (10:07)
[2020-04-07] MEDS: ASPIRIN 81 MG PO SCH (10:07)
--- NOTE | 2020-04-07 10:11 | XR ---
EXAMINATION TYPE: XR chest 1V DATE OF EXAM: 04/07/2020 COMPARISON: Chest xray 04/06/2020 HISTORY: Tracheostomy tube tip that, abnormal chest x-ray TECHNIQUE: Single frontal view of the chest is obtained. FINDINGS: There is not a significant interval change. Tracheostomy tube and right-sided PICC line sh ow a stable position. No evident airspace disease, pneumothorax, or pleural effusion. Cardiac mediast inal silhouette, pulmonary vascularity and pietro are stable. Question some subsegmental basilar atelec tatic change in the retrocardiac region. There are overlying artifacts. IMPRESSION: Essentially stable findings. Question some subsegmental basilar atelectatic change.
--- NOTE | 2020-04-07 12:10 | P.PN ---
Subjective Progress Note Date: 04/07/20 Principal diagnosis: Acute hypoxic or for failure and cardiac arrest This is a 64-year-old female with history of multiple medical problems including coronary artery disease, previous cardiac arrest, going back to Oct 02 2018. Patient was having elective cardiac catheterization and she was found to have a mid LAD lesion. During the procedure, patient went into cardiac arrest, and angioplasty was performed. However patient developed profound hypotension and went into pulseless electrical activity. Patient continues to have on and off hypotension and cardiac arrest for approximately 60 minutes in the [facility]. During this time the patient had LAD stented she was resuscitated, emPella device was used, and she was eventually transferred to the intensive care unit, seen by Dr. Atkinson on consultation. Patient had a prolonged course of intubation and mechanical ventilation, she was eventually discharged on 10/17/19. At that time patient had systolic dysfunction with ejection fraction of 35%. She also had episodes of COPD exacerbation, and she was also noted to have a left vocal cord paralysis, likely related to her intubation. Patient was eventually discharged to [facility], and she continues to have intermittent episodes of stridor. Seen last as inpatient by Dr. Atkinson on 03/23/2019, at the time she was having shortness of breath with inspiratory stridor. And again this was felt to be related to her vocal cord injury/paralysis. Eventually, the patient ended up with a tracheostomy in place, this was supposedly done on outpatient basis. Patient has been following with Dr. Nelson's/ENT for her vocal cord paralysis. Her tracheostomy was done on May 14 2019 at the [facility].Last night the patient was brought into the ER by EMS, patient apparently had a cardiopulmonary arrest. EMS arrived to the scene, patient was unresponsive, apparently she collapsed forward onto bed, patient was Ambu bag, and she was pulseless. Reportedly she went into ventricular fibrillation, she was given 1 mg of epinephrine, and she was shocked once. CPR was roughly lasted 5 minutes, and there was return of spontaneous circulation after 1 epinephrine and 1 shock. Patient was brought into the ER, unresponsive, and an endotracheal tube was placed in the tracheostomy site by EMS, and this was later changed by the ER physician to a tracheostomy connected to mechanical ventilation, patient was admitted to the ICU, and I was asked to see her on consultation. Patient is unresponsive. She is only responding to very deep painful stimuli. CT of the brain was negative. Patient is now on mechanical ventilation with assist control rate of 18 tidal volume is 400 FiO2 is down to 50% and PEEP is at 5. ABG post intubation showed a pO2 of 236 pCO2 of 38 pH of 7.37. Patient is on norepinephrine at 0.03 mcg/kg/m, propofol at 20 mcg/kg/m, IV fluids running at 150 mL per hour, she is on GI and DVT prophylaxis, she is also on Zosyn empirically, and I went ahead and placed a right radial arterial line for hemodynamic monitoring. Neurology consultation is pending. Lactic acid on admission was 8.1, follow-up lactic acid this morning is 1.6. Troponin went up from 0.012 up to 0.085. CBC is relatively normal. PT PTT and INR are normal. Chest x-ray this morning showed stable pleural parenchymal changes, difficult to tell whether the patient has underlying pneumonia or congestive heart failure. EKG this morning showed sinus tachycardia right bundle branch block, and possible old inferior wall DC. Cardiology consultation is pending. Patient was reevaluated today on 03/21/20, patient remains in the ICU, intubated and mechanically ventilated. She is now on assist control rate of 18, tidal volume is 400 FiO2 is 50% PEEP is 5. ABG showed a pO2 of 103 pCO2 of 38 pH of 7.34 hence I cut down her FiO2 to 45%. Her peak airway pressure is 31, and her plateau pressure is 22. Chest x-ray is showing some component of interstitial edema, left lower lobe atelectasis, possible pneumonia involving the left lower lobe. Considering the chest x-ray findings, I recommended Lasix 40 mg IV push 1, and The patient empirically on antibiotics. Echocardiogram is pending today. Neurologically the patient is sedated, on propofol, however as we discontinued the propofol patient became extremely agitated and restless, bucking the vent, and her blood pressure was noted to go extremely high, but she was not following any instructions and she was not comprehending much. Has had to place her back on propofol. Could not be ventilated properly off propofol. Labs from today were reviewed her electrolytes are normal BUN is 36 creatinine is 1.55, improving to creatinine on presentation which was 1.81. WBC count is 10.8 hemoglobin is 11.5 04/04/20, the patient is back on mechanical ventilator. Note that after being on trach collar for around 24 hours, the patient became progressively more short of breath and labored in terms of her breathing. The chest x-ray was not showing any acute abnormalities. In fact left lower lobe infiltrated. I think the work of breathing is quite high while breathing through a smaller caliber tracheosto my tube and that could be the reason why the patient became more labored in terms of her breathing. No respiratory secretions. She is still on Lasix on a daily basis. She maintains a negative fluid balance pH is tolerating enteral feeding for nutritional support. She remains anoxic and there is no improvement in neurologic functions over the past 24 hours. Patient was reevaluated today on 04/05/20, intermittently on mechanical ventilation, and at times on trach collar. However she was noted to be extremely tachypneic on trach collar today, and I had to place her back on ventilatory support. Patient is back on her previous ventilator settings, which is assist control rate of 24, tidal volume of 350, FiO2 is 35%, and PEEP of 5. ABG today on trach collar showed a pO2 of 65 pCO2 of 41 pH of 7.51. Chest x-ray showed bibasilar subsegmental atelectasis, possible infiltrates. But I believe the findings are mostly atelectasis findings more so than infiltrates. CBC is relatively normal left lites are normal BUN is 42 creatinine is 1.16. Patient is now off antibiotics, she remains on GI and DVT prophylaxis, and she is on Keppra as well as bronchodilators. Remains on Lasix at 40 mg IV push daily. And she is on Coreg 12.5 mg twice a day. Neurologic status is basically about the same, patient basically opens eyes only to deep painful stimuli, does not have any appropriate response to verbal stimuli. Patient was reevaluated today on 04/06/20, patient remains in the ICU, intubated and mechanically ventilated. Her ventilator settings are assist control rate of 24 to volume of 350 FiO2 35% and PEEP of 5 patient still not showing any neurological recovery. And unresponsive to any stimuli. Her neurological examination has not changed much since admission. Patient has only intact brainstem reflexes, but does not follow any commands and not verbalizing. Pupils remain around 3 mm bilaterally, positive corneal reflex bilaterally. Patient has intact gag reflex. And she has no spontaneous movement noted by the nurses taking care of the patient. Opens eyes only to deep painful stimuli. Chest x-ray showed minimal atelectasis at the left base. CBC is relatively normal. Electrolytes are normal. BUN is 53 creatinine is 1.30. Patient was reevaluated today on 04/07/20, patient is about the same.remains intubated and mechanically ventilated. Her ventilator settings are assist control rate of 24 total volume 350 FiO2 is 35% PEEP is 5 no ABG done today. Chest x-ray is showing minimal atelectasis at the left base. Neurologically the patient is about the same. Today I have decided to place the patient on pressure support of 12 and CPAP, and probably maintain her on this mode of mechanical ventilation. When patient is switched to a trach collar, she seems to develop atelectasis, and she has very shallow and rapid breathing. Hence I believe it would be best to keep her on pressure support of 12 and CPAP for now. In the meantime licensed social worker are addressing the issue of placement on this patient.CBC is relatively normal basic metabolic profile is normal BUN is 64 creatinine is 1.34.renal functioning is slightly worse in the last couple of days compared to baseline. Objective - Vital Signs Vital signs: Vital Signs Temp 98.4 F 04/07/20 04:00 Pulse 66 04/07/20 11:46 Resp 24 04/07/20 10:00 BP 153/65 04/07/20 10:00 Pulse Ox 95 04/07/20 10:00 Intake & Output 04/06/20 04/07/20 04/07/20 18:59 06:59 18:59 Intake Total 979 957 288 Output Total 935 1035 260 Balance 44 -78 28 Weight 95.2 kg Intake: IV 240 240 60 Sodium Chloride 0.9% 1, 240 240 60 000 ml @ 20 mls/hr IV . Q24H [facility] Rx#:[id number] Tube Feeding 649 627 228 Other 90 90 Output: Urine 935 1035 260 Other: Voiding Method Indwelling Catheter Indwelling Catheter Indwelling Catheter ABP, PAP, CO, CI - Last Documented Arterial Blood Pressure 136/50 - Exam Gen.: Revealed a 64-year-old female on mechanical ventilation, not requiring any sedatives.seems to be comfortable on mechanical ventilation/assist-control mode. Head exam: Atraumatic, normocephalic. Eye exam: PERRLA, EOMI, no icterus, ENT exam: Moist mucous membranes, tracheostomy tube is intact. Neck exam: Supple, no neck masses, tracheostomy is intact. Respiratory exam: good breath sound bilaterally no crackles or rhonchi or wheezes. Cardiovascular Exam: Normal S1 and S2, no S3 gallop. GI/Abdominal exam: Flat, soft, nontender, no megaly, no rebound, no guarding. PEG tube is intact. And the patient has a colostomy in place. Extremities exam: No clubbing, trace of edema, no cyanosis. Good pulses bilaterally. Neurological exam: Patient is unresponsive to any stimuli except , opens eyes on ly to deep painful stimuli but no other responses. Brainstem reflexes are intact including gag reflex and corneal reflex.neurological status is basically the same, unchanged since admission. Skin exam: No rashes - Labs CBC & Chem 7: 04/07/20 03:45 04/07/20 03:45 Labs: Abnormal Lab Results - Last 24 Hours (Table) 04/06/20 04/06/20 04/06/20 Range/Units 12:20 15:59 20:56 RBC (3.80-5.40) m/uL Hgb (11.4-16.0) gm/dL Hct (34.0-46.0) % MCHC (31.0-37.0) g/dL Carbon Dioxide (22-30) mmol/L BUN (7-17) mg/dL Creatinine (0.52-1.04) mg/dL Glucose (74-99) mg/dL POC Glucose (mg/dL) 232 H 189 H 243 H (75-99) mg/dL 04/06/20 04/07/20 04/07/20 Range/Units 23:58 03:44 03:45 RBC 3.45 L (3.80-5.40) m/uL Hgb 9.6 L (11.4-16.0) gm/dL Hct 31.6 L (34.0-46.0) % MCHC 30.6 L (31.0-37.0) g/dL Carbon Dioxide (22-30) mmol/L BUN (7-17) mg/dL Creatinine (0.52-1.04) mg/dL Glucose (74-99) mg/dL POC Glucose (mg/dL) 282 H 165 H (75-99) mg/dL 04/07/20 04/07/20 Range/Units 03:45 09:00 RBC (3.80-5.40) m/uL Hgb (11.4-16.0) gm/dL Hct (34.0-46.0) % MCHC (31.0-37.0) g/dL Carbon Dioxide 33 H (22-30) mmol/L BUN 62 H (7-17) mg/dL Creatinine 1.34 H (0.52-1.04) mg/dL Glucose 166 H (74-99) mg/dL POC Glucose (mg/dL) 245 H (75-99) mg/dL Assessment and Plan Assessment: Impression: 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 Chronic respiratory failure, hypoxic in nature, patient had chronic tracheostomy in place. History of PEG tube placement postoperative day #12 Possible aspiration pneumonia, resolved, no need for antibiotics at this point. Ischemic cardiomyopathy based on echocardiogram.poor LV function. History of underlying COPD. History of coronary artery disease and previous stent of LAD. Previous history of cardiac arrest in 2008. History of diabetic peripheral neuropathy. Benign essential hypertension. History of vocal cord paralysis requiring tracheostomy in the past. Failure to wean from mechanical ventilation. however I will try today longer course of pressure support of 12 and CPAP. History of secondary pulmonary hypertension. Recommendation: change to pressure support of 12 and CPAP and maintain as long as possible. Continue present supportive care measures. Continue GI and DVT prophylaxis. Continue nutritional support. Continue bronchodilators. continue to address placement with licensed social worker. Considering her anoxic brain injury, prognosis is extremely poor and guarded. prognosis remains extremely poor. May have to consider hospice if family is agreeable. Critical care time is 32 minutes Time with Patient: Greater than 30
[2020-04-07 13:02] LABS: Glucose,Whole Blood 178 mg/dL (75-99)
--- NOTE | 2020-04-07 13:40 | P.DS ---
Providers Date of admission: 03/20/20 01:26 Expected date of discharge: 04/07/20 Attending physician: Maico Blunt Consults: 03/20/20 01:26 Consult Physician Stat Consulting Provider: Jey Garcia Consult Reason/Comments: cardiopulmonary arrest Do you want consulting provider notified?: Already Contacted 03/20/20 01:32 Consult Physician Routine Consulting Provider: Marc Yepez Consult Reason/Comments: cardiopulmonary arrest Do you want consulting provider notified?: Yes 03/22/20 10:19 Consult Physician Routine Consulting Provider: Jose Guzman Consult Reason/Comments: tracheostomy revision Do you want consulting provider notified?: Yes 03/23/20 16:58 Consult Physician Routine Consulting Provider: Freeman Nelson Consult Reason/Comments: Possible trach revision Do you want consulting provider notified?: Yes 03/24/20 09:43 Consult Physician Routine Consulting Provider: Danny Esteves Consult Reason/Comments: Trach revision Do you want consulting provider notified?: Yes 03/25/20 08:20 Consult Physician Routine Consulting Provider: Caesar Amador Consult Reason/Comments: peg tube placement Do you want consulting provider notified?: Yes Primary care physician: Noah Finley [facility] Course: Chief Complaint: Decreased responsiveness History of presenting complaint: This is a 64-year-old patient of Dr. Finley. Chronic stable medical conditions include hypertension, hyperlipidemia, diabetic peripheral neuropathy. was in the hospital in October 2018 having cardiac arrest following LAD angioplasty. Also pulmonary spwckagc-yjcieuayls-ivky was felt a left vocal cord paralysis probably from intubation. Patient was brought in by the EMS. Family had called closure short of breath. While they were on the phone vacation became unresponsive and collapsed into the bed. Then begin using a bag valve mask ventilation. When the EMS arrived patient was unresponsive she also went into ventricular fibrillation. She received 1 mg of epinephrine 1 shock and patient then came around. Downtime was about 10 minutes. Patient is in the ICU. On the ventilator. FiO2 50% and a PEEP of 5. Patient is on IV propofol and norepinephrine. Telemetry shows sinus rhythm. Has an NG tube. Per cardiology notes her EF is 35%. In the past. admitted with-cardiac arrest with underlying rhythm of ventricular fibrillation the downtime of tenderness, cardioverted, acute hypoxic respiratory failure on the ventilator, acute CHF exacerbation, lactic acidosis likely type II, aspiration pneumonia, and acute COPD exacerbation.started on IV Zosyn, IV Solu- Medrol. Initially intubated. Put on Cleviprex drip for blood pressure. Based on EEG placed on IV Keppra per neurology. Dose of Neurontin scaled back- Because of renal failure. Had a PEG tube placed. Diagnosed with anoxic brain injury. Patient had gone down to a trach collar. Did put back underwent. 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 Ojvgz-HCH-dl the ventilator. FiO2 35 and a PEEP of 5. 2 feeding at goal. As per pulmonary because patient best to keep her on pressure support of 12 and a CPAP for now. Review of systems:-Patient doesn't follow commands Consultants: Dr. Garcia and partners from pulmonary and critical care Dr. Amador from general surgery Dr. Kearns and Dr. Russell from neurology Physical examination: VITAL SIGNS: 98.8, 67, 22, 107/58, 95% on ventilator GENERAL: laying in bed, eyes closed EYES: Pupils equal. Conjunctiva normal. NECK: JVD unable to assess, masses not palpable.stoma with the tracheostomy- March the ventilator HEART: First and second heart sounds are normal; no edema. LUNGS: Respiratory rate increased, decreased breath sounds ABDOMEN: Soft, nontender, liver spleen not palpable, no masses palpable. PSYCH: Unable to assess NEUROLOGICAL: Nonpurposeful movement to painful stimuli INVESTIGATIONS, reviewed in the clinical context: White count 9.4 hemoglobin 9.6 platelets 249 potassium 4 creatinine 1.34 Chest x-ray possibly some infiltrate 2-D echocardiogram-EF 60-65%, mild to moderate pulmonary hypertension Repeat EEG-March 23-showing generalized cerebral dysfunction EEG suggestive of generalized cerebral dysfunction Admission testing White count 10.1 hemoglobin 13.4 platelets 293 potassium 5.8 bicarb 17 bun 42 creatinine 1.81 blood glucose 458 lactic acid 8.1 Troponin I less than 0.012, 0.056,0.085 EKG tracing personally reviewed by me-sinus rhythm low-voltage right bundle branch block pattern Computed tomography scan of the brain-negative Chest x-ray film personally reviewed by me-portable cardiomegaly venous prominence Assessment: -Cardiac arrest with underlying rhythm of ventricle fibrillation, with downtime of 10 minutes cardioverted, 1 dose of epinephrine -Acute hypoxic respiratory failure, requiring ventilator intermittently with trach collar -Acute on chronic congestive heart failure exacerbation from systolic dysfunction EF 25%-stabilized -Lactic acidosis -Possible aspiration pneumonia -Acute COPD exacerbation in an ex-smoker, exposed to secondhand smoking- -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 / encephalopathy.-Slow to respond. -Secondary pulmonary hypertension -PEG tube placed today March [address] Amador-feeding at goal Disposition: ECF Prognosis guarded Patient Condition at Discharge: Undetermined Plan - Discharge Summary New Discharge Prescriptions: New carvediloL [Coreg*] 12.5 mg PO BID-W/MEALS tab Ipratropium-Albuterol Nebulize [Duoneb 0.5 mg-3 mg/3 ml Soln] 3 ml INHALATION RT-QID ml Ipratropium-Albuterol Nebulize [Duoneb 0.5 mg-3 mg/3 ml Soln] 3 ml INHALATION RT-Q2H PRN ml PRN Reason: Shortness Of Breath Or Wheezing levETIRAcetam [Keppra] 500 mg PO Q12HR tab Enoxaparin [Lovenox] 40 mg SQ DAILY #1 syringe Gabapentin [Neurontin] 300 mg PO TID #9 cap amLODIPine [Norvasc] 10 mg PO DAILY tab INSULIN ASPART (NovoLOG) [NovoLOG (formulary)] 0 unit SQ Q4H vial Sennosides [Senokot] 8.6 mg PO BID PRN tab PRN Reason: Constipation Acetaminophen Tab [Tylenol] 650 mg PO Q4HR PRN tab PRN Reason: Fever And/Or Mild Pain lisinopriL [Zestril] 10 mg PO DAILY tab Continue Aspirin 81 mg PO DAILY chew Prasugrel [Effient] 10 mg PO DAILY tab Ezetimibe [Zetia] 10 mg PO DAILY Furosemide [Lasix] 40 mg PO DAILY Changed Insulin Glargine,Hum.rec.anlog [Toujeo Solostar] 35 units SQ HS #0 Discontinued lisinopriL [Zestril] 5 mg PO DAILY tab Gabapentin 800 mg PO QID Insulin Aspart (Niacinamide) [Fiasp 100 Unit/ml Flextouch] 11 units SQ AC-TID carvediloL [Coreg] 3.125 mg PO AC-BID Discharge Medication List Aspirin 81 mg PO DAILY chew 10/16/18 [Rx] Prasugrel [Effient] 10 mg PO DAILY tab 10/16/18 [Rx] Ezetimibe [Zetia] 10 mg PO DAILY 03/22/19 [History] Furosemide [Lasix] 40 mg PO DAILY 03/04/20 [History] Acetaminophen Tab [Tylenol] 650 mg PO Q4HR PRN tab 04/06/20 [Rx] Enoxaparin [Lovenox] 40 mg SQ DAILY #1 syringe 04/06/20 [Rx] Gabapentin [Neurontin] 300 mg PO TID #9 cap 04/06/20 [Rx] INSULIN ASPART (NovoLOG) [NovoLOG (formulary)] 0 unit SQ Q4H vial 04/06/20 [Rx] Insulin Glargine,Hum.rec.anlog [Toujeo Solostar] 35 units SQ HS #0 04/06/20 [Rx] Ipratropium-Albuterol Nebulize [Duoneb 0.5 mg-3 mg/3 ml Soln] 3 ml INHALATION RT-Q2H PRN ml 04/06/20 [Rx] Ipratropium-Albuterol Nebulize [Duoneb 0.5 mg-3 mg/3 ml Soln] 3 ml INHALATION RT-QID ml 04/06/20 [Rx] Sennosides [Senokot] 8.6 mg PO BID PRN tab 04/06/20 [Rx] amLODIPine [Norvasc] 10 mg PO DAILY tab 04/06/20 [Rx] carvediloL [Coreg*] 12.5 mg PO BID-W/MEALS tab 04/06/20 [Rx] levETIRAcetam [Keppra] 500 mg PO Q12HR tab 04/06/20 [Rx] lisinopriL [Zestril] 10 mg PO DAILY tab 04/06/20 [Rx] Follow up Appointment(s)/Referral(s): neurology,dr [Other] - 1 Week Noah Finley DO [Primary Care Provider] - As Needed Activity/Diet/Wound Care/Special Instructions: vent resp/trach orders per pulmonary
[2020-04-07 13:44] VITALS: BMI 33.8
--- NOTE | 2020-04-07 15:32 | P.PN ---
Subjective Progress Note Date: 04/07/20 CHIEF COMPLAINT: Cardiopulmonary arrest HISTORY OF PRESENT ILLNESS: Patient is a remains in the ICU. She is status post PEG tube placement. She is tolerating tube feeds. Tube feedings are currently at 57 ml/hour. Patient is afebrile WBC is 9.4. Currently on mechanical ventilation PHYSICAL EXAM: VITAL SIGNS: Reviewed. GENERAL: Well-developed in no acute distress. HEENT: No sclera icterus. Extraocular movements grossly intact. Moist buccal mucosa. Head is atraumatic, normocephalic. ABDOMEN: Soft. Nondistended. Nontender. PEG tube site clean dry and intact NEUROLOGIC: Not responsive ASSESSMENT: 1. Status post out of hospital cardiopulmonary arrest 2. Status post mechanical ventilation with insertion of a pediatric tracheostomy tube and a prior tracheostoma site for hypoxic respiratory failure 3. Severe protein calorie malnutrition Status post PEG tube placement 3. Anoxic encephalopathy 4. History of vocal cord paralysis and previous tracheostomy 5. Possible aspiration pneumonia 6. Acute systolic CHF exacerbation 7. History of coronary artery disease with cardiac stents PLAN: -Continue tube feedings for nutritional support -Patient is stable for discharge from surgical standpoint to [facility] Physician Manager Program Management note has been reviewed by physician. Signing provider agrees with the documented findings, assessment, and plan of care. Objective - Vital Signs Vital signs: Vital Signs Temp 98.8 F 04/07/20 12:00 Pulse 70 04/07/20 13:00 Resp 31 H 04/07/20 13:00 BP 125/60 04/07/20 13:00 Pulse Ox 96 04/07/20 13:00 Intake & Output 04/06/20 04/07/20 04/07/20 18:59 06:59 18:59 Intake Total 979 957 747 Output Total 935 1035 1110 Balance 44 -78 -363 Weight 95.2 kg 95.2 kg Intake: IV 240 240 120 Sodium Chloride 0.9% 1, 240 240 120 000 ml @ 20 mls/hr IV . Q24H [facility] Rx#:[id number] Tube Feeding 649 627 627 Other 90 90 Output: Urine 935 1035 1110 Other: Voiding Method Indwelling Catheter Indwelling Catheter Indwelling Catheter ABP, PAP, CO, CI - Last Documented Arterial Blood Pressure 136/50 - Labs CBC & Chem 7: 04/07/20 03:45 04/07/20 03:45 Labs: Abnormal Lab Results - Last 24 Hours (Table) 04/06/20 04/06/20 04/06/20 Range/Units 15:59 20:56 23:58 RBC (3.80-5.40) m/uL Hgb (11.4-16.0) gm/dL Hct (34.0-46.0) % MCHC (31.0-37.0) g/dL Carbon Dioxide (22-30) mmol/L BUN (7-17) mg/dL Creatinine (0.52-1.04) mg/dL Glucose (74-99) mg/dL POC Glucose (mg/dL) 189 H 243 H 282 H (75-99) mg/dL 04/07/20 04/07/20 04/07/20 Range/Units 03:44 03:45 03:45 RBC 3.45 L (3.80-5.40) m/uL Hgb 9.6 L (11.4-16.0) gm/dL Hct 31.6 L (34.0-46.0) % MCHC 30.6 L (31.0-37.0) g/dL Carbon Dioxide 33 H (22-30) mmol/L BUN 62 H (7-17) mg/dL Creatinine 1.34 H (0.52-1.04) mg/dL Glucose 166 H (74-99) mg/dL POC Glucose (mg/dL) 165 H (75-99) mg/dL 04/07/20 04/07/20 Range/Units 09:00 13:00 RBC (3.80-5.40) m/uL Hgb (11.4-16.0) gm/dL Hct (34.0-46.0) % MCHC (31.0-37.0) g/dL Carbon Dioxide (22-30) mmol/L BUN (7-17) mg/dL Creatinine (0.52-1.04) mg/dL Glucose (74-99) mg/dL POC Glucose (mg/dL) 245 H 178 H (75-99) mg/dL
[2020-04-07] MEDS: SODIUM CHLORIDE 0.9% 1,000 ML IV SCH (15:45)
[2020-04-07 17:30] LABS: Glucose,Whole Blood 236 mg/dL (75-99)
--- NOTE | 2020-04-07 18:51 | P.PN ---
Subjective Progress Note Date: 04/07/20 Patient was seen at bedside and the she continues to be on a ventilator and via trach. She continues not to be on that any IV sedations. Per the patient nurse her clinical states remains at the same way she'll only open her eyes she'll blink time to time Tata that she would not response. She continues to be in the hospital because needing insurance authorization for placement. Objective - Vital Signs Vital signs: Vital Signs Temp 98.1 F 04/07/20 16:09 Pulse 67 04/07/20 18:00 Resp 16 04/07/20 18:00 BP 150/76 04/07/20 18:00 Pulse Ox 96 04/07/20 18:00 Intake & Output 04/06/20 04/07/20 04/07/20 18:59 06:59 18:59 Intake Total 234 175 3670 Output Total 935 1035 1984 Balance 44 -78 -967 Weight 95.2 kg 95.2 kg Intake: IV 240 240 220 Sodium Chloride 0.9% 1, 240 240 220 000 ml @ 20 mls/hr IV . Q24H [facility] Rx#:[id number] Tube Feeding 649 627 798 Other 90 90 Output: Urine 935 1035 1984 Other: Voiding Method Indwelling Catheter Indwelling Catheter Indwelling Catheter ABP, PAP, CO, CI - Last Documented Arterial Blood Pressure 136/50 - Exam General: Patient does not seem in acute distress. Respiratory: She is trach on Vent today. Clear to auscultation throughout Neurological exam: Limited because of her condition. Higher mental function. Patient is had her eyes open and blinkly bilaterally.. She is verbally unresponsive and does not follow commands. The pupils are round and 3-mm bilaterally and reactive to light. There is no facial weakness appreciated bilaterally. Has intact gag reflex Motor: Strength could not be assessed because of patient condition. But no movement noted with painful stimuli throughout. No spontaneous movement seen. Sensation:With painful stimuli, patient grimaces her face. Cannot assess the light touch because of her condition. Reflexes are 1 positive throughout. - Labs CBC & Chem 7: 04/07/20 03:45 04/07/20 03:45 Labs: Abnormal Lab Results - Last 24 Hours (Table) 04/06/20 04/06/20 04/07/20 Range/Units 20:56 23:58 03:44 RBC (3.80-5.40) m/uL Hgb (11.4-16.0) gm/dL Hct (34.0-46.0) % MCHC (31.0-37.0) g/dL Carbon Dioxide (22-30) mmol/L BUN (7-17) mg/dL Creatinine (0.52-1.04) mg/dL Glucose (74-99) mg/dL POC Glucose (mg/dL) 243 H 282 H 165 H (75-99) mg/dL 04/07/20 04/07/20 04/07/20 Range/Units 03:45 03:45 09:00 RBC 3.45 L (3.80-5.40) m/uL Hgb 9.6 L (11.4-16.0) gm/dL Hct 31.6 L (34.0-46.0) % MCHC 30.6 L (31.0-37.0) g/dL Carbon Dioxide 33 H (22-30) mmol/L BUN 62 H (7-17) mg/dL Creatinine 1.34 H (0.52-1.04) mg/dL Glucose 166 H (74-99) mg/dL POC Glucose (mg/dL) 245 H (75-99) mg/dL 04/07/20 04/07/20 Range/Units 13:00 17:29 RBC (3.80-5.40) m/uL Hgb (11.4-16.0) gm/dL Hct (34.0-46.0) % MCHC (31.0-37.0) g/dL Carbon Dioxide (22-30) mmol/L BUN (7-17) mg/dL Creatinine (0.52-1.04) mg/dL Glucose (74-99) mg/dL POC Glucose (mg/dL) 178 H 236 H (75-99) mg/dL Assessment and Plan Assessment: 64-year-old female, who has tracheostomy since March 2019, had a witnessed respiratory arrest followed by cardiac arrest at home, with downtime of about 10 minutes, although patient's daughter stating <5 minutes. Patient is 6 days post cardiac arrest, now showing signs of clinical improvement. * Anoxic brain injury: cardiac arrest for 10 minute---no improvement * Encephalopathy due to above * Acute respiratory failure, * Possible aspiration pneumonia * History of cardiac arrest in October 2018 during cardiac procedure. * History of vocal cord paralysis and previous tracheostomy. * COPD * Diabetes * Hypertension * Mild renal insufficiency. * X tobacco use Plan: * Recommend to avoid any the sedation or opioid as much as possible. * Repeated computed tomography scan of the head 03/24/2020, revealed no acute process, no cerebral edema or CVA. * Repeat EEG 03/23/2020 revealed diffuse slowing in moderate to high amplitude delta range, consistent with severe encephalopathy. No epileptiform activity was seen on this study. * Repeat EEG on 03/27/2020 showed no epileptiform activity. The background improved at. * Continue Keppra 500 mg twice a day (adjusted to her renal functions). * Continue Neurontin 300 mg 3 times a day based upon her renal functions. * As a result of the cardiac arrest the patient suffered which seem a significant brain injury. Patient does have intact brainstem reflexes but I think the patient will be dependent on others for assistance if there are any improvement. * Pending insurance authorization for placement. Plan was discussed with the ICU team. Catalino Kearns M.D. Neuro-Hospitalist Time with Patient: Less than 30
[2020-04-07 20:14] LABS: Glucose,Whole Blood 195 mg/dL (75-99)
[2020-04-07] MEDS: INSULIN DETEMIR (LEVEMIR) 100 UNIT/ML SYR SQ SCH (20:24)
[2020-04-07 23:36] LABS: Glucose,Whole Blood 141 mg/dL (75-99)
[2020-04-08 00:12] LABS: Glucose,Whole Blood 151 mg/dL (75-99)
[2020-04-08] MEDS: HEPARIN SODIUM,PORCINE 5,000 UNIT/ML 1 ML VIAL SQ SCH ×2 (00:48→08:44)
[2020-04-08 04:00] LABS: Glucose,Whole Blood 234 mg/dL (75-99)
[2020-04-08 04:05] LABS: Basophils # (A) 0.1 k/uL (0-0.2); Basophils % (A) 1 %; Eosinophils # (A) 0.4 k/uL (0-0.7); Eosinophils % (A) 4 %; HCT 33.3 % (34.0-46.0); HGB 10.5 gm/dL (11.4-16.0); Hypochromasia Slight; Lymphocytes % (A) 13 %; MCH 28.8 pg (25.0-35.0); MCHC 31.5 g/dL (31.0-37.0); MCV 91.5 fL (80.0-100.0); Mean Platelet Volume 8.9; Monocytes # (A) 0.5 k/uL (0-1.0); Monocytes % (A) 5 %; Neutrophils # (A) 6.2 k/uL (1.3-7.7); Neutrophils % (A) 76 %; Platelet Count 277 k/uL (150-450); RBC 3.64 m/uL (3.80-5.40); RDW 14.6 % (11.5-15.5); WBC 8.2 k/uL (3.8-10.6)
[2020-04-08] MEDS: INSULIN ASPART (NovoLOG) 100 UNIT/ML VIAL SQ SCH ×3 (04:13→13:01)
[2020-04-08] MEDS: LACTATED RINGERS 1,000 ML IV SCH (04:22)
[2020-04-08] MEDS: SODIUM CHLORIDE 0.9% 1,000 ML IV SCH (04:22)
[2020-04-08 04:28] LABS: Calcium 9.4 mg/dL (8.4-10.2); Potassium 4.4 mmol/L (3.5-5.1)
[2020-04-08] MEDS: carvediloL 12.5 MG TAB PO SCH (06:28)
[2020-04-08 07:49] LABS: Glucose,Whole Blood 248 mg/dL (75-99)
[2020-04-08] MEDS: IPRATROPIUM-ALBUTEROL 3 ML NEB INHALATION SCH ×2 (08:13→11:30)
[2020-04-08 08:42] VITALS: TEMP 98.5
[2020-04-08] MEDS: GABAPENTIN 300 MG CAP PO SCH (08:44)
[2020-04-08] MEDS: levETIRAcetam 500 MG TAB PO SCH (08:44)
[2020-04-08] MEDS: PRASUGREL 10 MG TAB PO SCH (08:44)
[2020-04-08] MEDS: FUROSEMIDE 10 MG/ML 4 ML VIAL IV SCH (08:44)
[2020-04-08] MEDS: DOCUSATE ORAL SOLN 100 MG/10 ML CUP PO SCH (08:44)
[2020-04-08] MEDS: lisinopriL 10 MG TAB PO SCH (08:44)
[2020-04-08] MEDS: EZETIMIBE 10 MG TAB PO SCH (08:45)
[2020-04-08] MEDS: amLODIPine 10 MG TAB PO SCH (08:45)
[2020-04-08] MEDS: ASPIRIN 81 MG PO SCH (08:45)
[2020-04-08] MEDS ORDERED: FUROSEMIDE 10 MG/ML 2 ML VIAL IV SCH (09:30)
[2020-04-08] MEDS: PANTOPRAZOLE SODIUM 40 MG GRANULE PKT PEG/G-TUBE SCH (09:39)
--- NOTE | 2020-04-08 09:49 | XR ---
EXAMINATION TYPE: XR chest 1V DATE OF EXAM: 04/08/2020 COMPARISON: 04/07/2020 HISTORY: Shortness of breath TECHNIQUE: Single frontal view of the chest is obtained. FINDINGS: Tracheostomy tube stable. Left lower lobe infiltrate stable. No overt failure. PICC line s een. No pneumothorax. Subsegmental changes right lung base more typical of atelectasis. IMPRESSION: 1. Basilar infiltrate or atelectasis stable in appearance.
--- NOTE | 2020-04-08 11:11 | P.PN ---
Subjective Progress Note Date: 04/08/20 CHIEF COMPLAINT: Cardiopulmonary arrest HISTORY OF PRESENT ILLNESS: Patient is a remains in the ICU. She is status post PEG tube placement. She is tolerating tube feeds. Tube feedings are currently at 57 ml/hour. Patient is afebrile WBC is 8.2. Currently on mechanical ventilation PHYSICAL EXAM: VITAL SIGNS: Reviewed. GENERAL: Well-developed in no acute distress. HEENT: No sclera icterus. Extraocular movements grossly intact. Moist buccal mucosa. Head is atraumatic, normocephalic. ABDOMEN: Soft. Nondistended. Nontender. PEG tube site clean dry and intact NEUROLOGIC: Not responsive ASSESSMENT: 1. Status post out of hospital cardiopulmonary arrest 2. Status post mechanical ventilation with insertion of a pediatric tracheostomy tube and a prior tracheostoma site for hypoxic respiratory failure 3. Severe protein calorie malnutrition Status post PEG tube placement 3. Anoxic encephalopathy 4. History of vocal cord paralysis and previous tracheostomy 5. Possible aspiration pneumonia 6. Acute systolic CHF exacerbation 7. History of coronary artery disease with cardiac stents PLAN: -Continue tube feedings for nutritional support -Patient is stable for discharge from surgical standpoint to [facility] Physician Agronomy Technician note has been reviewed by physician. Signing provider agrees with the documented findings, assessment, and plan of care. Objective - Vital Signs Vital signs: Vital Signs Temp 98.5 F 04/08/20 07:42 Pulse 64 04/08/20 09:23 Resp 24 04/08/20 09:23 BP 120/59 04/08/20 09:23 Pulse Ox 97 04/08/20 09:23 Intake & Output 04/07/20 04/08/20 04/08/20 18:59 06:59 18:59 Intake Total 1018 887 288 Output Total 1984 690 130 Balance -967 197 158 Weight 95.2 kg 88.8 kg Intake: IV 220 200 60 Sodium Chloride 0.9% 1, 220 200 60 000 ml @ 20 mls/hr IV . Q24H [facility] Rx#:[id number] Tube Feeding 798 627 228 Other 60 Output: Urine 1984 690 130 Other: Voiding Method Indwelling Catheter Indwelling Catheter ABP, PAP, CO, CI - Last Documented Arterial Blood Pressure 136/50 - Labs CBC & Chem 7: 04/08/20 03:58 04/08/20 03:58 Labs: Abnormal Lab Results - Last 24 Hours (Table) 04/07/20 04/07/20 04/07/20 Range/Units 13:00 17:29 20:13 RBC (3.80-5.40) m/uL Hgb (11.4-16.0) gm/dL Hct (34.0-46.0) % Carbon Dioxide (22-30) mmol/L BUN (7-17) mg/dL Creatinine (0.52-1.04) mg/dL Glucose (74-99) mg/dL POC Glucose (mg/dL) 178 H 236 H 195 H (75-99) mg/dL 04/07/20 04/08/20 04/08/20 Range/Units 23:35 00:10 03:58 RBC 3.64 L (3.80-5.40) m/uL Hgb 10.5 L (11.4-16.0) gm/dL Hct 33.3 L (34.0-46.0) % Carbon Dioxide (22-30) mmol/L BUN (7-17) mg/dL Creatinine (0.52-1.04) mg/dL Glucose (74-99) mg/dL POC Glucose (mg/dL) 141 H 151 H (75-99) mg/dL 04/08/20 04/08/20 04/08/20 Range/Units 03:58 03:59 07:46 RBC (3.80-5.40) m/uL Hgb (11.4-16.0) gm/dL Hct (34.0-46.0) % Carbon Dioxide 32 H (22-30) mmol/L BUN 67 H (7-17) mg/dL Creatinine 1.25 H (0.52-1.04) mg/dL Glucose 225 H (74-99) mg/dL POC Glucose (mg/dL) 234 H 248 H (75-99) mg/dL
[2020-04-08 12:55] VITALS: RESP 25
[2020-04-08 12:57] LABS: Glucose,Whole Blood 233 mg/dL (75-99)
[2020-04-08 13:11] VITALS: BP 142/78; PULSE 71
--- NOTE | 2020-04-08 14:06 | P.PN ---
Subjective Progress Note Date: 04/08/20 Principal diagnosis: Acute hypoxic or for failure and cardiac arrest This is a 64-year-old female with history of multiple medical problems including coronary artery disease, previous cardiac arrest, going back to Oct 02 2018. Patient was having elective cardiac catheterization and she was found to have a mid LAD lesion. During the procedure, patient went into cardiac arrest, and angioplasty was performed. However patient developed profound hypotension and went into pulseless electrical activity. Patient continues to have on and off hypotension and cardiac arrest for approximately 60 minutes in the [employer]. During this time the patient had LAD stented she was resuscitated, emPella device was used, and she was eventually transferred to the intensive care unit, seen by Dr. Atkinson on consultation. Patient had a prolonged course of intubation and mechanical ventilation, she was eventually discharged on 10/17/19. At that time patient had systolic dysfunction with ejection fraction of 35%. She also had episodes of COPD exacerbation, and she was also noted to have a left vocal cord paralysis, likely related to her intubation. Patient was eventually discharged to [facility], and she continues to have intermittent episodes of stridor. Seen last as inpatient by Dr. Atkinson on 03/23/2019, at the time she was having shortness of breath with inspiratory stridor. And again this was felt to be related to her vocal cord injury/paralysis. Eventually, the patient ended up with a tracheostomy in place, this was supposedly done on outpatient basis. Patient has been following with Dr. Nelson's/ENT for her vocal cord paralysis. Her tracheostomy was done on May 14 2019 at the [facility].Last night the patient was brought into the ER by EMS, patient apparently had a cardiopulmonary arrest. EMS arrived to the scene, patient was unresponsive, apparently she collapsed forward onto bed, patient was Ambu bag, and she was pulseless. Reportedly she went into ventricular fibrillation, she was given 1 mg of epinephrine, and she was shocked once. CPR was roughly lasted 5 minutes, and there was return of spontaneous circulation after 1 epinephrine and 1 shock. Patient was brought into the ER, unresponsive, and an endotracheal tube was placed in the tracheostomy site by EMS, and this was later changed by the ER physician to a tracheostomy connected to mechanical ventilation, patient was admitted to the ICU, and I was asked to see her on consultation. Patient is unresponsive. She is only responding to very deep painful stimuli. CT of the brain was negative. Patient is now on mechanical ventilation with assist control rate of 18 tidal volume is 400 FiO2 is down to 50% and PEEP is at 5. ABG post intubation showed a pO2 of 236 pCO2 of 38 pH of 7.37. Patient is on norepinephrine at 0.03 mcg/kg/m, propofol at 20 mcg/kg/m, IV fluids running at 150 mL per hour, she is on GI and DVT prophylaxis, she is also on Zosyn empirically, and I went ahead and placed a right radial arterial line for hemodynamic monitoring. Neurology consultation is pending. Lactic acid on admission was 8.1, follow-up lactic acid this morning is 1.6. Troponin went up from 0.012 up to 0.085. CBC is relatively normal. PT PTT and INR are normal. Chest x-ray this morning showed stable pleural parenchymal changes, difficult to tell whether the patient has underlying pneumonia or congestive heart failure. EKG this morning showed sinus tachycardia right bundle branch block, and possible old inferior wall OH. Cardiology consultation is pending. Patient was reevaluated today on 03/21/20, patient remains in the ICU, intubated and mechanically ventilated. She is now on assist control rate of 18, tidal volume is 400 FiO2 is 50% PEEP is 5. ABG showed a pO2 of 103 pCO2 of 38 pH of 7.34 hence I cut down her FiO2 to 45%. Her peak airway pressure is 31, and her plateau pressure is 22. Chest x-ray is showing some component of interstitial edema, left lower lobe atelectasis, possible pneumonia involving the left lower lobe. Considering the chest x-ray findings, I recommended Lasix 40 mg IV push 1, and The patient empirically on antibiotics. Echocardiogram is pending today. Neurologically the patient is sedated, on propofol, however as we discontinued the propofol patient became extremely agitated and restless, bucking the vent, and her blood pressure was noted to go extremely high, but she was not following any instructions and she was not comprehending much. Has had to place her back on propofol. Could not be ventilated properly off propofol. Labs from today were reviewed her electrolytes are normal BUN is 36 creatinine is 1.55, improving to creatinine on presentation which was 1.81. WBC count is 10.8 hemoglobin is 11.5 04/04/20, the patient is back on mechanical ventilator. Note that after being on trach collar for around 24 hours, the patient became progressively more short of breath and labored in terms of her breathing. The chest x-ray was not showing any acute abnormalities. In fact left lower lobe infiltrated. I think the work of breathing is quite high while breathing through a smaller caliber tracheosto my tube and that could be the reason why the patient became more labored in terms of her breathing. No respiratory secretions. She is still on Lasix on a daily basis. She maintains a negative fluid balance pH is tolerating enteral feeding for nutritional support. She remains anoxic and there is no improvement in neurologic functions over the past 24 hours. Patient was reevaluated today on 04/05/20, intermittently on mechanical ventilation, and at times on trach collar. However she was noted to be extremely tachypneic on trach collar today, and I had to place her back on ventilatory support. Patient is back on her previous ventilator settings, which is assist control rate of 24, tidal volume of 350, FiO2 is 35%, and PEEP of 5. ABG today on trach collar showed a pO2 of 65 pCO2 of 41 pH of 7.51. Chest x-ray showed bibasilar subsegmental atelectasis, possible infiltrates. But I believe the findings are mostly atelectasis findings more so than infiltrates. CBC is relatively normal left lites are normal BUN is 42 creatinine is 1.16. Patient is now off antibiotics, she remains on GI and DVT prophylaxis, and she is on Keppra as well as bronchodilators. Remains on Lasix at 40 mg IV push daily. And she is on Coreg 12.5 mg twice a day. Neurologic status is basically about the same, patient basically opens eyes only to deep painful stimuli, does not have any appropriate response to verbal stimuli. Patient was reevaluated today on 04/06/20, patient remains in the ICU, intubated and mechanically ventilated. Her ventilator settings are assist control rate of 24 to volume of 350 FiO2 35% and PEEP of 5 patient still not showing any neurological recovery. And unresponsive to any stimuli. Her neurological examination has not changed much since admission. Patient has only intact brainstem reflexes, but does not follow any commands and not verbalizing. Pupils remain around 3 mm bilaterally, positive corneal reflex bilaterally. Patient has intact gag reflex. And she has no spontaneous movement noted by the nurses taking care of the patient. Opens eyes only to deep painful stimuli. Chest x-ray showed minimal atelectasis at the left base. CBC is relatively normal. Electrolytes are normal. BUN is 53 creatinine is 1.30. Patient was reevaluated today on 04/07/20, patient is about the same.remains intubated and mechanically ventilated. Her ventilator settings are assist control rate of 24 total volume 350 FiO2 is 35% PEEP is 5 no ABG done today. Chest x-ray is showing minimal atelectasis at the left base. Neurologically the patient is about the same. Today I have decided to place the patient on pressure support of 12 and CPAP, and probably maintain her on this mode of mechanical ventilation. When patient is switched to a trach collar, she seems to develop atelectasis, and she has very shallow and rapid breathing. Hence I believe it would be best to keep her on pressure support of 12 and CPAP for now. In the meantime social insurance administrator are addressing the issue of placement on this patient.CBC is relatively normal basic metabolic profile is normal BUN is 64 creatinine is 1.34.renal functioning is slightly worse in the last couple of days compared to baseline. Reevaluated today on 04/08/20, patient remains in the ICU, no major salesperson floor coverings the last 24 hours, patient was on pressure support and CPAP throughout the day yesterday, however as she was noted to be more tachypneic, patient was placed back on mechanical ventilation last night. She is now on tidal volume of 350 FiO2 of 35% rate of 24 and PEEP of 5. No ABG was done today. Patient remains hemodynamically stable, she is noted to be slightly dehydrated, hence I will cut down the dose of Lasix and increase her IV fluid. IV fluid will go up to 50 mL per hour. Patient is being considered for possible transfer to [facility] in [place]. Objective - Vital Signs Vital signs: Vital Signs Temp 98.5 F 04/08/20 07:42 Pulse 71 04/08/20 13:00 Resp 25 H 04/08/20 13:00 BP 142/78 04/08/20 13:00 Pulse Ox 95 04/08/20 13:00 Intake & Output 04/07/20 04/08/20 04/08/20 18:59 06:59 18:59 Intake Total 1018 887 602 Output Total 6486 459 370 Balance -967 197 232 Weight 95.2 kg 88.8 kg Intake: IV 220 200 260 Sodium Chloride 0.9% 1, 220 200 260 000 ml @ 50 mls/hr IV . Q20H [facility] Rx#:[id number] Tube Feeding 799 253 342 Other 60 Output: Urine 1985 921 370 Other: Voiding Method Indwelling Catheter Indwelling Catheter Indwelling Catheter ABP, PAP, CO, CI - Last Documented Arterial Blood Pressure 136/50 - Exam Gen.: Revealed a 64-year-old female on mechanical ventilation, opens eyes now mostly to verbal stimuli, but no other neurological responses. Head exam: Atraumatic, normocephalic. Tracheostomy is intact. Eye exam: PERRLA, EOMI, no icterus, ENT exam: Dry mucous membranes., tracheostomy tube is intact. Neck exam: Supple, no neck masses, Respiratory exam: Diminished breath sounds at the bases no rhonchi no wheezes Cardiovascular Exam: Normal S1 and S2, no S3 gallop. GI/Abdominal exam: Flat, soft, nontender, no megaly, no rebound, no guarding. PEG tube is intact. And the patient has a colostomy in place. Extremities exam: No clubbing, trace of edema, no cyanosis. Good pulses bilaterally. Neurological exam: Patient is unresponsive to any stimuli except , opens eyes only to deep painful stimuli but no other responses. Skin exam: No rashes - Labs CBC & Chem 7: 04/08/20 03:58 04/08/20 03:58 Labs: Abnormal Lab Results - Last 24 Hours (Table) 04/07/20 04/07/20 04/07/20 Range/Units 17:29 20:13 23:35 RBC (3.80-5.40) m/uL Hgb (11.4-16.0) gm/dL Hct (34.0-46.0) % Carbon Dioxide (22-30) mmol/L BUN (7-17) mg/dL Creatinine (0.52-1.04) mg/dL Glucose (74-99) mg/dL POC Glucose (mg/dL) 236 H 195 H 141 H (75-99) mg/dL 04/08/20 04/08/20 04/08/20 Range/Units 00:10 03:58 03:58 RBC 3.64 L (3.80-5.40) m/uL Hgb 10.5 L (11.4-16.0) gm/dL Hct 33.3 L (34.0-46.0) % Carbon Dioxide 32 H (22-30) mmol/L BUN 67 H (7-17) mg/dL Creatinine 1.25 H (0.52-1.04) mg/dL Glucose 225 H (74-99) mg/dL POC Glucose (mg/dL) 151 H (75-99) mg/dL 04/08/20 04/08/20 04/08/20 Range/Units 03:59 07:46 12:54 RBC (3.80-5.40) m/uL Hgb (11.4-16.0) gm/dL Hct (34.0-46.0) % Carbon Dioxide (22-30) mmol/L BUN (7-17) mg/dL Creatinine (0.52-1.04) mg/dL Glucose (74-99) mg/dL POC Glucose (mg/dL) 234 H 248 H 233 H (75-99) mg/dL Assessment and Plan Assessment: Impression: 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 Chronic respiratory failure, hypoxic in nature, patient had chronic tracheostomy in place. History of PEG tube placement postoperative day #13 Possible aspiration pneumonia, resolved, remains off antibiotics at present. Ischemic cardiomyopathy based on echocardiogram.poor LV function. We'll continue diuretics but the dose will be cut down significantly. History of underlying COPD. History of coronary artery disease and previous stent of LAD. Previous history of cardiac arrest in 2008. History of diabetic peripheral neuropathy. Benign essential hypertension. History of vocal cord paralysis requiring tracheostomy in the past. Failure to wean and extubate. However the patient is tolerating pressure support and CPAP throughout the day. History of secondary pulmonary hypertension. Recommendation: Go back to pressure support and CPAP today. Decrease Lasix to 20 mg daily. Increase as a fluid to 50 mL per hour. Continue present supportive care measures. Continue GI and DVT prophylaxis. Continue nutritional support. Continue bronchodilators. continue to address placement with social insurance administrator. Considering her anoxic brain injury, prognosis is extremely poor and guarded. Overall prognosis remains guarded, and again no major issues or changes in the last 24 hours. Time with Patient: Less than 30
--- NOTE | 2020-04-08 18:39 | P.PN ---
Subjective Progress Note Date: 04/08/20 Patient was seen at bedside and she continues to be the same as yesterday. There is no improvement in her neurological condition. The patient nurse the patient does not have any seizure-like activity. Objective - Vital Signs Vital signs: Vital Signs Temp 98.5 F 04/08/20 07:42 Pulse 71 04/08/20 13:00 Resp 25 H 04/08/20 13:00 BP 142/78 04/08/20 13:00 Pulse Ox 95 04/08/20 13:00 Intake & Output 04/07/20 04/08/20 04/08/20 18:59 06:59 18:59 Intake Total 1018 887 602 Output Total 1985 690 370 Balance -967 197 232 Weight 95.2 kg 88.8 kg Intake: IV 220 200 260 Sodium Chloride 0.9% 1, 220 200 260 000 ml @ 50 mls/hr IV . Q20H [facility] Rx#:[id number] Tube Feeding 798 627 342 Other 60 Output: Urine 1984 690 370 Other: Voiding Method Indwelling Catheter Indwelling Catheter Indwelling Catheter ABP, PAP, CO, CI - Last Documented Arterial Blood Pressure 136/50 - Exam General: Patient does not seem in acute distress. Respiratory: She is trach on Vent today. Clear to auscultation throughout Neurological exam: Limited because of her condition. Higher mental function. Patient is had her eyes open and blinkly bilaterally.. She is verbally unresponsive and does not follow commands. The pupils are round and 3-mm bilaterally and reactive to light. There is no facial weakness appreciated bilaterally. Has intact gag reflex Motor: Strength could not be assessed because of patient condition. But no movement noted with painful stimuli throughout. No spontaneous movement seen. Sensation:With painful stimuli, patient grimaces her face. Cannot assess the light touch because of her condition. Reflexes are 1 positive throughout. - Labs CBC & Chem 7: 04/08/20 03:58 04/08/20 03:58 Labs: Abnormal Lab Results - Last 24 Hours (Table) 04/07/20 04/07/20 04/08/20 Range/Units 20:13 23:35 00:10 RBC (3.80-5.40) m/uL Hgb (11.4-16.0) gm/dL Hct (34.0-46.0) % Carbon Dioxide (22-30) mmol/L BUN (7-17) mg/dL Creatinine (0.52-1.04) mg/dL Glucose (74-99) mg/dL POC Glucose (mg/dL) 195 H 141 H 151 H (75-99) mg/dL 04/08/20 04/08/20 04/08/20 Range/Units 03:58 03:58 03:59 RBC 3.64 L (3.80-5.40) m/uL Hgb 10.5 L (11.4-16.0) gm/dL Hct 33.3 L (34.0-46.0) % Carbon Dioxide 32 H (22-30) mmol/L BUN 67 H (7-17) mg/dL Creatinine 1.25 H (0.52-1.04) mg/dL Glucose 225 H (74-99) mg/dL POC Glucose (mg/dL) 234 H (75-99) mg/dL 04/08/20 04/08/20 Range/Units 07:46 12:54 RBC (3.80-5.40) m/uL Hgb (11.4-16.0) gm/dL Hct (34.0-46.0) % Carbon Dioxide (22-30) mmol/L BUN (7-17) mg/dL Creatinine (0.52-1.04) mg/dL Glucose (74-99) mg/dL POC Glucose (mg/dL) 248 H 233 H (75-99) mg/dL Assessment and Plan Assessment: 64-year-old female, who has tracheostomy since March 2019, had a witnessed respiratory arrest followed by cardiac arrest at home, with downtime of about 10 minutes, although patient's daughter stating <5 minutes. Patient is 6 days post cardiac arrest, now showing signs of clinical improvement. * Anoxic brain injury: cardiac arrest for 10 minute---no improvement * Encephalopathy due to above * Acute respiratory failure, * Possible aspiration pneumonia * History of cardiac arrest in October 2018 during cardiac procedure. * History of vocal cord paralysis and previous tracheostomy. * COPD * Diabetes * Hypertension * Mild renal insufficiency. * X tobacco use Plan: * Recommend to avoid any the sedation or opioid as much as possible. * Repeated computed tomography scan of the head 03/24/2020, revealed no acute process, no cerebral edema or CVA. * Repeat EEG 03/23/2020 revealed diffuse slowing in moderate to high amplitude delta range, consistent with severe encephalopathy. No epileptiform activity was seen on this study. * Repeat EEG on 03/27/2020 showed no epileptiform activity. The background improved at. * Continue Keppra 500 mg twice a day (adjusted to her renal functions). * Continue Neurontin 300 mg 3 times a day based upon her renal functions. * As a result of the cardiac arrest the patient suffered which seem a significant brain injury. Patient does have intact brainstem reflexes but I think the patient will be dependent on others for assistance if there are any improvement. * Pending insurance authorization for placement. Plan was discussed with the ICU team. Catalino Kearns M.D. Neuro-Hospitalist Time with Patient: Less than 30
== END 2020-04-08 14:52 | DRG 207 ==
LOC: EC 22:23 → 2SICU 03-20 01:26
PROVIDERS: ADMIT Hospitalist; ATTEND Hospitalist
PROC: 0BH17EZ Insertion of Endotracheal Airway into Trachea, Via Natural or Artificial Opening (ICD-10-PCS; principal; 2020-03-19)
PROC: 5A1955Z Respiratory Ventilation, Greater than 96 Consecutive Hours (ICD-10-PCS; principal; 2020-03-19)
PROC: 3E033XZ Introduction of Vasopressor into Peripheral Vein, Percutaneous Approach (ICD-10-PCS; 2020-03-19)
PROC: 4A133J1 Monitoring of Arterial Pulse, Peripheral, Percutaneous Approach (ICD-10-PCS; 2020-03-20)
PROC: 4A133B1 Monitoring of Arterial Pressure, Peripheral, Percutaneous Approach (ICD-10-PCS; 2020-03-20)
PROC: 03HY32Z Insertion of Monitoring Device into Upper Artery, Percutaneous Approach (ICD-10-PCS; 2020-03-20)
PROC: 0DH67UZ Insertion of Feeding Device into Stomach, Via Natural or Artificial Opening (ICD-10-PCS; 2020-03-20)
PROC: 02HV33Z Insertion of Infusion Device into Superior Vena Cava, Percutaneous Approach (ICD-10-PCS; 2020-03-25)
PROC: 3E0G76Z Introduction of Nutritional Substance into Upper GI, Via Natural or Artificial Opening (ICD-10-PCS; 2020-03-26)
PROC: 0DH63UZ Insertion of Feeding Device into Stomach, Percutaneous Approach (ICD-10-PCS; 2020-03-26)
PROC: 0B918ZZ Drainage of Trachea, Via Natural or Artificial Opening Endoscopic (ICD-10-PCS; 2020-03-30)
PROC: 5A1945Z Respiratory Ventilation, 24-96 Consecutive Hours (ICD-10-PCS; 2020-04-03)
PROC: 0BH17EZ Insertion of Endotracheal Airway into Trachea, Via Natural or Artificial Opening (ICD-10-PCS; 2020-04-03)
PROC: 0BH17EZ Insertion of Endotracheal Airway into Trachea, Via Natural or Artificial Opening (ICD-10-PCS; 2020-04-06)
PROC: 5A1945Z Respiratory Ventilation, 24-96 Consecutive Hours (ICD-10-PCS; 2020-04-06)
DX: J96.21 Acute and chronic respiratory failure with hypoxia (principal); I49.01 Ventricular fibrillation; J69.0 Pneumonitis due to inhalation of food and vomit; I50.23 Acute on chronic systolic (congestive) heart failure; N17.0 Acute kidney failure with tubular necrosis; E43 Unspecified severe protein-calorie malnutrition; G92 Toxic encephalopathy; I46.2 Cardiac arrest due to underlying cardiac condition; J44.1 Chronic obstructive pulmonary disease with (acute) exacerbation; J98.11 Atelectasis; E87.2 Acidosis; G93.1 Anoxic brain damage, not elsewhere classified; J38.6 Stenosis of larynx; J38.01 Paralysis of vocal cords and larynx, unilateral; J98.09 Other diseases of bronchus, not elsewhere classified; Z20.828 Contact with and (suspected) exposure to other viral communicable diseases; E11.42 Type 2 diabetes mellitus with diabetic polyneuropathy; E11.65 Type 2 diabetes mellitus with hyperglycemia; E66.9 Obesity, unspecified; Z68.33 Body mass index [BMI] 33.0-33.9, adult; R45.1 Restlessness and agitation; E78.5 Hyperlipidemia, unspecified; E86.0 Dehydration; G47.33 Obstructive sleep apnea (adult) (pediatric); T40.2X5A Adverse effect of other opioids, initial encounter; T38.0X5A Adverse effect of glucocorticoids and synthetic analogues, initial encounter; G93.89 Other specified disorders of brain; I11.0 Hypertensive heart disease with heart failure; I25.10 Atherosclerotic heart disease of native coronary artery without angina pectoris; I25.2 Old myocardial infarction; I25.5 Ischemic cardiomyopathy; I27.29 Other secondary pulmonary hypertension; I44.0 Atrioventricular block, first degree; Z66 Do not resuscitate; Z79.02 Long term (current) use of antithrombotics/antiplatelets; Z79.4 Long term (current) use of insulin; Z79.82 Long term (current) use of aspirin; Z79.899 Other long term (current) drug therapy; Z83.3 Family history of diabetes mellitus; Z86.73 Personal history of transient ischemic attack (TIA), and cerebral infarction without residual deficits; Z87.01 Personal history of pneumonia (recurrent); Z87.891 Personal history of nicotine dependence; Z93.0 Tracheostomy status; Z95.5 Presence of coronary angioplasty implant and graft; R79.89 Other specified abnormal findings of blood chemistry; Z53.09 Procedure and treatment not carried out because of other contraindication; Z86.74 Personal history of sudden cardiac arrest; Z74.3 Need for continuous supervision; Z77.22 Contact with and (suspected) exposure to environmental tobacco smoke (acute) (chronic); Z86.14 Personal history of Methicillin resistant Staphylococcus aureus infection; Z98.51 Tubal ligation status; Z98.42 Cataract extraction status, left eye; Z98.41 Cataract extraction status, right eye; R56.9 Unspecified convulsions; Z88.8 Allergy status to other drugs, medicaments and biological substances; Z82.0 Family history of epilepsy and other diseases of the nervous system; Z83.2 Family history of diseases of the blood and blood-forming organs and certain disorders involving the immune mechanism
CPT/HCPCS: 31624; 36415; 36556; 36573; 36600; 43246; 51702; 70450; 71045; 80048; 80053; 81001; 82805; 83036; 83605; 83735; 84100; 84145; 84484; 85025; 85027; 85610; 85730; 87040; 87070; 87086; 87205; 87635; 93005; 93306; 94002; 94003; 94640; 95816; 95819; 96361; 96365; 96366; 96375; 99285